=== PATIENT | female | born 1940 | race Caucasian/White ===

== ENCOUNTER → 2021-01-25 08:22 | Outpatient (CLI) | payer MEDICARE, BC, SELFPAY ==
[2021-01-25 10:30] LABS: Chloride 106 mmol/L (98-107)
[2021-01-25 10:31] LABS: Potassium 3.4 mmoL/L (3.5-5.1); Sodium 143 mmol/L (136-145)
[2021-01-25 10:33] LABS: Alanine Aminotransferase 8 U/L (12-78); Albumin Level 4.1 g/dl (3.5-5.0); Albumin/Globulin Ratio 1.1 (1.1-1.8); Alkaline Phosphatase 117 U/L (38-126); Anion Gap 16.4 mEq/L (5-15); Aspartate Amino Transferase 25 U/L (14-36); Bilirubin,Total 0.6 mg/dl (0.2-1.3); Calcium 9.5 mg/dl (8.4-10.2); Carbon Dioxide 24 mmol/L (22.0-30.0); Cholesterol 134 mg/dl (140-200); Globulin 3.7 g/dL (1.3-3.2); Glucose 102 mg/dl (74-100); Total Protein,Serum 7.8 g/dl (6.3-8.2); Triglycerides 87 mg/dl (30-150); VLDL Cholesterol 17 mg/dL (0-40)
[2021-01-25 10:34] LABS: Chol/HDL Ratio 2.7 (1-3.5); HDL Cholesterol 50 mg/dl (40-60)
[2021-01-25 18:21] LABS: Blood Urea Nitrogen 15 mg/dl (7-17); Estimated Glomerular Filt Rate 60 ml/min (>60); GFR (African American) 73 ML/MIN (>60)
[2021-01-25 18:30] LABS: Direct LDL Cholesterol 69.16 mg/dL (100-129)
== END ==
PROVIDERS: Visit Provider Family Medicine
DX: I10 Essential (primary) hypertension (principal); E78.5 Hyperlipidemia, unspecified
CPT/HCPCS: 36415; 80053; 80061

== ENCOUNTER 2023-02-02 08:22 | Inpatient (IN) | payer MEDICARE, BC, SELFPAY ==
[2023-02-02] VITALS (33 sets, daily range): BP systolic 102–176; BP diastolic 50–93; PULSE 79–126; RESP 17–31; TEMP 36.8; O2SAT 91–100; BMI 30.7; BMI 24.2
--- NOTE | 2023-02-02 08:29 | ECG_ITS ---
APPROVED REPORT Exam: Resting ECG HR:126 bpm ECG Measurements Heart Rate 126 AXES OR 119 P 73 QRSd 157 QRS 60 QT 325 T -81 QTc 400 Conclusion SINUS TACHYCARDIA WITH SHORT OR INTERVAL LEFT BUNDLE BRANCH BLOCK [120+ ms QRS DURATION, 80+ ms Q/S IN V1/V2, 85+ ms R IN I/aVL/V5/V6] ABNORMAL ECG UNCONFIRMED REPORT Electronically signed by : Dayo Gay MD 02/02/2023 19:17:51
--- NOTE | 2023-02-02 08:30 | XR_ITS ---
FINAL REPORT CLINICAL HISTORY: Shortness of breath COMPARISON: None FINDINGS: The heart size is mildly enlarged. The mediastinum is normal. Mildly increased interstitial opacities. Trace pleural effusions. Changes of emphysema. There is no pneumothorax. There is no osseous abnormality. IMPRESSION: Findings concerning for CHF. Reviewed, Interpreted and Dictated by Yovanny Lopez MD Transcribed by Sharon Pope Authenticated and [facility]
[2023-02-02 08:35] LABS: VBG Base Excess -5.3 mmol/L (-2.4-2.3); VBG HCO3 21.8 mmol/L (23-30); VBG Oxygen Saturation 89.5 % (50-70); VBG PCO2 49.5 mmol/L (35-51); VBG PH 7.26 mmol/L (7.31-7.41); VBG PO2 65.7 mmol/L (28-40); VBG Total CO2 23.3 mmol/L (23-27)
--- NOTE | 2023-02-02 08:37 | PC.NURSE ---
XR AT BEDSIDE
--- NOTE | 2023-02-02 08:45 | PC.NURSE ---
paged Dr Hemphill
--- NOTE | 2023-02-02 08:46 | PC.NURSE ---
DR HARPER SPEAKING WITH DR SANTOYO
[2023-02-02 08:47] LABS: Basophils # 0.1 K/mm3 (0-0.2); Basophils % 0.6 % (0.1-2.0); Eosinophils # 0.3 K/mm3 (0.0-0.4); Eosinophils % 1.6 % (0.1-12.0); Hematocrit 37.2 % (37.0-47.0); Hemoglobin 12.2 g/dL (12.2-16.2); Lymphocytes # 3.9 K/mm3 (0.7-4.5); Lymphocytes % 23.3 % (10-50); Mean Corpuscular HGB Conc 32.9 g/dL (31.8-35.4); Mean Corpuscular Hemoglobin 28.9 pg (27.0-31.2); Mean Corpuscular Volume 88.1 fl (81-99); Mean Platelet Volume 7.8 fl (7.4-10.4); Monocytes # 1.2 K/mm3 (0.1-1.0); Monocytes % 7.1 % (1.7-9.3); Neutrophils # 11.1 K/mm3 (1.8-7.8); Neutrophils % 67.3 % (37.0-80.0); Platelet Count 410 K/mm3 (142-424); Red Blood Count 4.23 M/mm3 (4.20-5.40); Red Cell Distribution Width 13.7 % (11.5-17.5); White Blood Count 16.5 K/mm3 (4.8-10.8)
--- NOTE | 2023-02-02 08:48 | CA_ITS ---
APPROVED REPORT EXAM: Comprehensive 2D, Doppler, and color-flow Echocardiogram Onion Tier: Massiel Horan RDCS Ht: 5 ft 6 in Wt: 150lbs BSA: 1.77 BP: 160/86 mmHg Indications: SOA,CHF,HTN,HLP RESP DISTRESS M-Mode Dimensions RVDd 0.75 cm (0.9-2.6) LA Diam 3.30 cm (1.9-4.0) LVDd 5.96 cm (3.5-5.7) LVDs 5.02 cm (3.5-5.7) IVSd 1.36 cm (0.6-1.1) PWd 1.15 cm (0.6-1.1) EF (Teich) 32.70% FS 15.80% EDV (Teich) 177.30 mL ESV (Teich) 119.30 mL LV Diastology E Decel Time 153 (160-240 msec) E/A Ratio 5.0 Aortic Valve LILLI Index 1.02 cm2/m2 AoV Peak Flaco. 187.0 (50-130 cm/s) AO Peak GR. 14.00 mmHg AO Mean GR. 6.80 (<5 mmHg) AO VTI 29.2 (18-25 cm) LILLI (VTI) 1.84 (2.5-4.5 cm2) Mitral Valve MV E Max Flaco. 129.0 (40-130 cm/s) MV A Velocity 26.0 (40-130 cm/s) E/A Ratio 4.90 MV PHT 45.0 ms Left Ventricle The left ventricle is normal size. Left ventricular systolic function is severely reduced. There is normal left ventricular wall thickness. There is severe global hypokinesis present. The anterior and anteroseptal LV pandya appear akinetic. The septum appears asynchronous. Diastolic function is indeterminate. LVEF is 25%. Right Ventricle The right ventricle is normal size. The right ventricular systolic function is normal. Atria The left atrium size is normal. There is no Doppler evidence of interatrial shunt. Aortic Valve The aortic valve is mildly thickened. There is no aortic valvular stenosis. Trace aortic regurgitation. Mitral Valve Mild mitral annular calcification. The mitral valve leaflets are mildly thickened. No evidence of mitral valve stenosis. Trace mitral regurgitation. Tricuspid Valve The tricuspid valve leaflets are thin and pliable. Trace tricuspid regurgitation. There is insufficient TR jet to estimate RVSP. Pulmonic Valve The pulmonary valve is normal in structure. Trace pulmonic regurgitation. Great Vessels The aortic root is normal in size. The ascending aorta is normal in size. IVC is normal in size and collapses >50% with inspiration. Pericardium Trivial pericardial effusion. There are no acute indications of tamponade. Other Information Study Quality: Fair Conclusion Severely reduced LV systolic function (LVEF 25%). Anterior and anteroseptal LV pandya appear akinetic. The septum appears asynchronous. Trivial pericardial effusion. Electronically signed by : Nurys Gtz MD 02/02/2023 10:02:47
[2023-02-02 08:54] LABS: MANUAL DIFFERENTIAL MANUAL DIFFERENTIAL (MANUAL DIFF)
[2023-02-02 08:56] LABS: Chloride 105 mmol/L (98-107); Potassium 3.3 mmoL/L (3.5-5.1); Sodium 138 mmol/L (136-145)
[2023-02-02 08:59] LABS: Alanine Aminotransferase 26 U/L (12-78); Alkaline Phosphatase 113 U/L (38-126); Anion Gap 10.3 mEq/L (5-15); Aspartate Amino Transferase 34 U/L (14-36); Bilirubin,Total 0.9 mg/dl (0.2-1.3); Blood Urea Nitrogen 14 mg/dl (7-17); Carbon Dioxide 26 mmol/L (22.0-30.0); Creatinine Clearance Estimated 47 mL/min (50-200); Estimated Glomerular Filt Rate 69 ml/min (>60); GFR (African American) 83 ML/MIN (>60); Globulin 4.2 g/dL (1.3-3.2); Total Protein,Serum 8.2 g/dl (6.3-8.2)
[2023-02-02 09:00] LABS: Calcium 8.3 mg/dl (8.4-10.2); Glucose 269 mg/dl (74-100)
--- NOTE | 2023-02-02 09:02 | PC.NURSE ---
cardiology and vascular at bedside for echo
--- NOTE | 2023-02-02 09:04 | PC.NURSE ---
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
[2023-02-02 09:08] LABS: NT Pro Brain Natriuretic Pep. 5620 pg/mL (0-450)
[2023-02-02 09:09] LABS: Lymphocytes % 30 % (10-50); Monocytes % 8 % (2-9); Neutrophils % 62 % (42-76); Platelet Estimate Slight Increase; RBC Morphology Normal; Total Cells Counted 100
[2023-02-02 09:10] LABS: Lactic Acid 2.1 mmol/L (0.7-2.1)
[2023-02-02 09:11] LABS: Troponin I 0.06 ng/ml (0.00-0.034)
--- NOTE | 2023-02-02 09:11 | HMH.EDGENADL ---
Discharge Plan Disposition Patient Disposition: Admitted Condition: Critical Clinical Impressions Clinical Impression: Acute hypoxemic respiratory failure Acute exacerbation of CHF (congestive heart failure) Qualifiers: Heart failure type: unspecified Qualified Code(s): I50.9 - Heart failure, unspecified Pulmonary edema Qualifiers: Chronicity: acute Qualified Code(s): J81.0 - Acute pulmonary edema Fluid overload Qualifiers: Hypervolemia type: other Qualified Code(s): E87.79 - Other fluid overload Discharge ED Provider: Kwame Mahan I General Adult HPI General Chief complaint: Shortness of Breath/Dyspnea Stated complaint: respiratory distress Time Seen by Provider: 02/02/23 08:44 Mode of Arrival: EMS Source of Information: Patient and EMS Limitations: No Limitations Description of Symptoms (Recalled from ER Triage Doc. by RN): c/o soa, woke up and noticed that she was having a hard time breathing, per ems oxygen was in the 70s upon arrival. arrived by ems with cpap present with oxygen at 96. Pt is alert and oriented at this time. History of Present Illness HPI narrative: Patient is an 82-year-old female, only known previous history of hypertension who is presenting to the emergency department with acute onset shortness of breath, difficulty breathing this morning. Patient was brought in by EMS on BiPAP. History was obtained from EMS as well as patient, later her . is concerned that she has actually been dealing with worsening shortness of breath with exertion over the past week although patient states that she only had difficulty breathing this morning. They ultimately called EMS. When EMS arrived on scene, patient had saturations in the 70s and was placed on BiPAP with a DuoNeb treatment. Patient states that she has had some slight improvement in her symptoms. She denies any current chest pain, lightheadedness, dizziness, abdominal pain, nausea, vomiting, syncope. Also denies abdominal pain, cough, congestion, runny nose, fever. Per her , patient has not recently been following up with her primary care provider. She does have swelling of the bilateral lower extremities. Denies prior smoking history, history of COPD. Related Data Home Medications Medication Instructions Recorded Confirmed amlodipine 5 mg tablet 5 mg PO DAILY High Blood Pressure 02/02/23 02/02/23 simvastatin 5 mg tablet 5 mg PO HS Cholesterol 02/02/23 02/02/23 Allergies Allergy/AdvReac Type Severity Reaction Status Date / Time Penicillins Allergy Verified 02/02/23 08:36 triprolidine Allergy Verified 02/02/23 08:36 [facility] Disclaimer: The information contained in this section may have been updated after the patient was seen, as this information can be updated by other users. Social History (Updated 02/02/23 @ 10:04 by GRACIE Carranza) Smoking Status: Unknown if ever smoked alcohol intake: never current occupational status: retired Travel in the last 8 weeks: Inside the [place] ROS Obtained: Yes All systems reviewed & no additional complaints except as documented Physical Exam General General appearance: alert (Patient is interactive, follows all commands but is ill-appearing) and in distress Head Head exam: atraumatic and normocephalic Eye Eye exam: Present normal appearance, PERRL and EOMI; Absent scleral icterus ENT ENT exam: Present normal exam and normal oropharynx Neck Neck exam: Present normal inspection, full ROM and trachea midline Chest Chest inspection: Present normal inspection and symmetric chest wall rise Respiratory Respiratory exam: Present respiratory distress, wheezes (Scattered wheezes bilaterally) and accessory muscle use Cardiovascular Cardiovascular exam: Present tachycardia Abdominal Exam Abdominal exam: Present soft and normal bowel sounds; Absent distention, tenderness, guarding, rebound or rigidity Extremities Exam Extremities exam: Present normal
--- NOTE | 2023-02-02 09:26 | EXP.CARD.CON ---
History of Present Illness History of Present Illness Consult date: 02/02/23 Consult reason: chest pain and congestive heart failure Chief complaint: SOA, AR Additional Medical History:: 1. Hypertension 2. Hyperlipidemia A. Chronic statin therapy 3. Abnormal EKG with left bundle branch block, 02/02/2023 possibly new. A. Possible a. flutter with 2:1 conduction 4. Heart failure with reduced ejection fraction, new on 02/02/2023 A. BNP 5620 B. Preliminary echo EF 25% History of present illness: Patient is an 82-year-old female, only known previous history of hypertension who is presenting to the emergency department with acute onset shortness of breath, difficulty breathing this morning. Patient was brought in by EMS on BiPAP. History was obtained from EMS as well as patient, later her . is concerned that she has actually been dealing with worsening shortness of breath with exertion over the past week although patient states that she only had difficulty breathing this morning. They ultimately called EMS. When EMS arrived on scene, patient had saturations in the 70s and was placed on BiPAP with a DuoNeb treatment. Patient states that she has had some slight improvement in her symptoms. She denies any current chest pain, lightheadedness, dizziness, abdominal pain, nausea, vomiting, syncope. Also denies abdominal pain, cough, congestion, runny nose, fever. Per her , patient has not recently been following up with her primary care provider. She does have swelling of the bilateral lower extremities. Denies prior smoking history, history of COPD. Patient is an 82-year-old female, only known previous history of hypertension who is presenting to the emergency department with acute onset shortness of breath, difficulty breathing this morning. She was hypertensive with systolics in the 140s to 150s, saturating in the mid 90s on BiPAP, tachycardic with a heart rate in the 120s but ill-appearing, in respiratory distress on arrival to the emergency department. Physical exam is notable for bilateral wheezes on exam, patient is tachypneic with increased work of breathing, intercostal retractions. 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 Patient does have 2-3+ pitting edema of the bilateral lower extremities with findings concerning for venous stasis, with this being concerning for acute on chronic exacerbation possible underlying heart failure. Patient denies any recent fevers that would be concerning for acute infectious process. Following cihuj-vc-hahb lung ultrasound, cardiac ultrasound at bedside, patient has diffuse B-lines that would be concerning for fluid overload. On a iofey-sw-boym cardiac ultrasound, patient has significantly diminished ejection fraction, does not have any RV dilation that would be concerning for acute PE. However, given her physical exam findings of pitting edema, diffuse B-lines, fluffy infiltrates, findings of pulmonary edema and bilateral pleural effusions on chest x-ray, decreased EF on ultrasound, this is all concerning for new onset heart failure, possible recent versus remote ischemic insult. EKG demonstrated left bundle pathology, although patient does not currently meet STEMI criteria based on Sgarbossa criteria. However, she does have some inferior lead depressions, could be secondary to demand ischemia in the setting of this current exacerbation. Patient was given additional 2 DuoNeb treatments on a BiPAP, placed on 11/30 with FiO2 75%. Qobzu-ju-bkks VBG was obtained that was notable for a mildly elevated CO2 of 49, lactate of 2.04 and mild acidosis that is likely secondary to both lactic acidosis and hypercarbia. Following interactive discussion and consultation with cardiology, given vnigs-sy-mxkv ultrasound findings as well as EKG, patient was given 80 mg IV Lasix and stat echo was ordered. Fo
--- NOTE | 2023-02-02 09:34 | IR_ITS ---
APPROVED REPORT Patient Location: Outpatient Stoker Installer: PAPITO Youngblood RT (R) PROCEDURES Selective coronary angiogram Drug-eluting stent deployment to the proximal LAD INDICATION Coronary artery disease, Non-ST elevation myocardial infarction, Abnormal echocardiogram with systolic congestive heart failure and anterior regional wall motion abnormality Informed consent was obtained prior to the procedure. COMPLICATIONS None Estimated Blood Loss: Less than 10 mls TECHNIQUE One percent lidocaine used to anesthetize the right anterior aspect of the wrist. The right radial artery was accessed via the Seldinger technique. A 6 Bolivian sheath was placed in the right radial artery. 2.5 mg of Verapamil, 800 mcg of nitroglycerin, 1mg Lidocaine and 5000 U Heparin were given through the arterial sheath. The papa catheter was also used to perform selective coronary angiogram. At the end of the procedure therapeutic heparin was administered giving a therapeutic ACT and the guide catheter was placed in left main artery followed by Choice PT extra-support wire being placed down the LAD. A 4 mm x 30 mm Trevor frontier stent was placed in the proximal LAD and deployed at 14 papito reducing the hemodynamically severe stenosis to 0%. KALLI-3 flow was present before and after the procedure. At the end of procedure the apparatus was removed the sheath was removed and hemostasis was achieved using TR banding patient was transferred to the postop holding in stable condition ANGIOGRAPHIC RESULTS The left main artery Normal The left anterior descending artery Has a proximal concentric 60 to 70% stenosis The circumflex artery Large codominant normal The right coronary artery Large codominant normal The DIAZ ventriculogram reveals Not performed The left ventricular end-diastolic pressure Not measured IMPRESSION Severe proximal LAD disease as described above Successful stent to the proximal LAD severe disease reduced to 0% with 1 drug-eluting stent PLAN 1. Plavix 600 mg bolus followed by 75 mg daily plus aspirin 81 mg daily 2. Standard therapy for systolic congestive heart failure 3. Standard therapy for ischemic heart disease 4. Consider LifeVest prior to discharge 5. Better rate control tachycardia using beta-blockers Electronically signed by : Buzz Hemphill MD 02/02/2023 13:19:46
--- NOTE | 2023-02-02 09:45 | PC.NURSE ---
SPOKE WITH DR JENNINGS, PT TO BE ADMITTED TO HOSPITALIST
--- NOTE | 2023-02-02 09:52 | HMH.PHAINT1 ---
Pharmacy Intervention Comments: MEDICATION RECONCILIATION COMPLETED ON PATIENT USING EXTERNAL FILL HISTORY FROM PHARMACY. -KRISTEN HORNE, BENNYD
--- NOTE | 2023-02-02 09:53 | PC.NURSE ---
ATTEMPTED TO REACH HOSPITALIST, NO ANSWER. PRO SHOP ATTENDANT NOTIFIED
--- NOTE | 2023-02-02 09:58 | PC.NURSE ---
VERBAL ORDERS FROM LINNEA HUSSEIN TO GIVEN PT 324 OF CHEWABLE ASA
[2023-02-02 10:16] LABS: Magnesium 1.9 mg/dl (1.6-2.3)
--- NOTE | 2023-02-02 11:32 | PC.NURSE ---
DR HARPER SPEAKING WITH HOSPITALIST
--- NOTE | 2023-02-02 11:42 | PC.NURSE ---
Notified CM of pt admission to hospitalist
[2023-02-02 12:03] LABS: Troponin I 0.18 ng/ml (0.00-0.034)
--- NOTE | 2023-02-02 12:09 | PC.NURSE ---
CONTACTED CARE MANAGEMENT AGAIN FOR PT BED, ISABEL STATES SHE WILL CALL FOR A BED. INFORMED PT IS VERY UNCOMFORTABLE EVEN AFTER RN X 2 AT BEDSIDE TO REPOSITION PT
--- NOTE | 2023-02-02 12:14 | PC.NURSE ---
called for bed assignment Betty said she would get to it in just a minute
--- NOTE | 2023-02-02 12:30 | PC.NURSE ---
irrigation laborer here for pt.
[2023-02-02 12:35] LABS: Reflex Lactic Add Lactic Reflex
[2023-02-02 14:53] LABS: CATHL Activated Clotting Time 240 SEC (74-125)
--- NOTE | 2023-02-02 15:09 | PC.NURSE ---
arrived to floor by stretcher from medical laboratory technical officer
[2023-02-02 16:24] LABS: Lactic Acid Follow Up (RFLX 1) 1.5 mmol/L (0.7-2.1)
--- NOTE | 2023-02-02 17:33 | PC.NURSE ---
pt new admit this shift at 1509 from computer lab assistant s/p 1 stent to LAD. pt ls cta. pt initially on 15L nonrebreather at admission, pt weaned to 4LNC with current O2 sat of 94%. pt denies SOA at this time and states she is feeling like she can breathe better. pt BBB on quality assurance inspector. abdomen soft, nontender t/o. f/c in place for accurate I&O after diuresis. pt has BLE edema. pt has dressing to right wrist where radial band was. Call light w/i reach and bed alarm in place.
--- NOTE | 2023-02-02 17:58 | PC.NURSE ---
Called and spoke with Dr. Sweet regarding pt having troponin lab work ordered and Heparin due at 1800. verbal order given to discontinue the troponin lab order and to reschedule the Heparin SQ d/t pt receiving Heparin in the Can Intake Worker. orders R&V.
--- NOTE | 2023-02-02 18:47 | PC.NURSE ---
pt titrated to 3LNC at this time. sats 96%.
--- NOTE | 2023-02-02 19:15 | EXP.HP ---
History of Present Illness *Admission Date: 02/02/23 *Reason for visit:: SOB *History of present illness: Is a 82-year-old female with past medical history of hypertension hyperlipidemia who presents to the hospital for shortness of breath, bilateral lower extremity swelling. According to the patient she has been feeling short of breath for the past 1 week, her shortness of breath gets worse. Patient, she denies acute chest pain nausea vomiting diarrhea constipation dysuria fever chills. Patient had emergent echocardiogram in the ED which did show EF 25%. Patient was taken to Assistant Passenger Locomotive Engineer. [facility] Disclaimer: The information contained in this section may have been updated after the patient was seen, as this information can be updated by other users. Medical History (Updated 02/02/23 @ 15:28 by Joanne Nicholas RN) CHF (congestive heart failure) History of left heart catheterization HLD (hyperlipidemia) Hypertension Surgical History (Updated 02/02/23 @ 15:28 by Joanne Nicholas RN) S/P partial hysterectomy Social History (Updated 02/02/23 @ 15:28 by Joanne Nicholas RN) Smoking Status: Unknown if ever smoked alcohol intake: never current occupational status: retired Travel in the last 8 weeks: Inside the [place] Review of Systems Review of Systems Review of systems (narrative): as per HPI Meds Home Medications and Allergies Home Medications Medication Instructions Recorded Confirmed Type amlodipine 5 mg tablet 5 mg PO DAILY High Blood Pressure 02/02/23 02/02/23 History simvastatin 5 mg tablet 5 mg PO HS Cholesterol 02/02/23 02/02/23 History New Prescriptions to Start Prescriptions: Allergies Allergy/AdvReac Type Severity Reaction Status Date / Time Penicillins Allergy Verified 02/02/23 08:36 triprolidine Allergy Verified 02/02/23 08:36 Exam Data for Last 24 hours Vital signs and Labs for Last 24 Hours: Temp Pulse Resp BP Pulse Ox O2 Del Method O2 Flow Rate 98.2 F 100 H 18 145/76 H 96 Nasal Cannula 4 02/02/23 12:31 02/02/23 18:45 02/02/23 18:45 02/02/23 18:45 02/02/23 18:45 02/02/23 18:45 02/02/23 18:45 FiO2 100 02/02/23 14:00 Laboratory Results - last 24 hr 02/02/23 08:28: WBC 16.5 H, RBC 4.23, Hgb 12.2, Hct 37.2, MCV 88.1, MCH 28.9, MCHC 32.9, RDW 13.7, Plt Count 410, MPV 7.8, Neut % (Auto) 67.3, Lymph % (Auto) 23.3, Mellette % (Auto) 7.1, Eos % (Auto) 1.6, Baso % (Auto) 0.6, Neut # (Auto) 11.1 H, Lymph # (Auto) 3.9, Mellette # (Auto) 1.2 H, Eos # (Auto) 0.3, Baso # (Auto) 0.1, Total Counted 100, Neutrophils % (Manual) 62, Lymphocytes % (Manual) 30, Monocytes % (Manual) 8, Platelet Estimate Slight increase, RBC Morphology Normal, Sodium 138, Potassium 3.3 L, Chloride 105, Carbon Dioxide 26, Anion Gap 10.3, BUN 14, Creatinine 0.80, Estimated Creat Clear 47, Estimated GFR 69, Est GFR ( Amer) 83, Glucose 269 H, Lactate 2.1, Calcium 8.3 L, Magnesium 1.9, Total Bilirubin 0.9, AST 34, ALT 26, Alkaline Phosphatase 113, Troponin I 0.06 H, NT-Pro-B Natriuret Pep 5620 H, Total Protein 8.2, Albumin 4.0, Globulin 4.2 H, Albumin/Globulin Ratio 1.0 L 02/02/23 08:30: VBG pH 7.26 L, VBG pCO2 49.5, VBG pO2 65.7 H, VBG HCO3 21.8 L, VBG Total CO2 23.3, VBG O2 Saturation 89.5 H, VBG Base Excess -5.3 L 02/02/23 11:27: Troponin I 0.18 H 02/02/23 14:03: Activated Clotting Time 240 H* 02/02/23 15:00: Lactate 1.5 I & O for Last 24 hours: Intake & Output 01/30/23 01/31/23 02/01/23 02/02/23 23:59 23:59 23:59 23:59 Intake Total 0 / 0 Output Total 2375 / 2375 Balance -2375 / -2375 Weight 68.039 kg Constitutional Constitutional: no acute distress *Routine HEENT Exam Head: Present normocephalic Eye: Present EOMI and PERRL ENT: Present mucous membranes moist *Routine Neck Exam Neck: Present supple; Absent lymphadenopathy *Routine Respiratory Exam Respiratory: Present CTA bilaterally *Routine Cardiovascular Exam Cardiovascular: Present RRR *Routine Abdominal Exam
[2023-02-03] VITALS (11 sets, daily range): BP systolic 111–142; BP diastolic 53–77; PULSE 70–111; RESP 18–31; TEMP 36.4–37; O2SAT 93–100; BMI 25.3
--- NOTE | 2023-02-03 00:30 | PC.WOUNDNOTE ---
Noticed on pt rounding pt had small amount of blood on bedsheet. RLE venous stasis had open spot. Rinsed with NS flush, washed with soap and water, patted dry, and placed Mepilex dressing. Pt states she has had this for a while but that it has healed before. Pt states she has placed neosporin on it without relief and area is exacerbated with tape and gauze. Educated purpose of wound cleansing and monitoring, pt verbalized.
--- NOTE | 2023-02-03 02:45 | PC.WOUNDNOTE ---
Pt called for RN and stated she picked a scab on her forehead. Bleeding present. Pt cleaned, abrasion cleaned and covered with bandaid. Educated pt to not pick at area.
--- NOTE | 2023-02-03 04:52 | PC.NURSE ---
Shift Summary: Pt AOx4, VSS on 3-5 L NC. Attempted to titrate to 3 L NC, however, pt desatted to 89% when asleep. R radial site remains clean and dry, no pain reported by pt. Reeducated pt multiple times to avoid pressure and to keep wrist straight as much as possible, pt requiring reinforcement and cues. 40 mg Lasix and 40 mEq KCl given last night, educated pt on purpose. Pt c/o constipation, docusate ordered and administered. Gas present, no BM at this time. Pt bed bath given, pt tolerated well. Pt RLE venous stasis and head abrasion covered in mepilex and bandaid, respectively. No acute events or issues at this time. Call light within reach and fall precautions implemented.
[2023-02-03 07:04] LABS: Chloride 105 mmol/L (98-107)
[2023-02-03 07:05] LABS: Potassium 3.3 mmoL/L (3.5-5.1); Sodium 141 mmol/L (136-145)
[2023-02-03 07:07] LABS: Alanine Aminotransferase 19 U/L (12-78); Alkaline Phosphatase 77 U/L (38-126); Anion Gap 8.3 mEq/L (5-15); Aspartate Amino Transferase 30 U/L (14-36); Bilirubin,Total 0.5 mg/dl (0.2-1.3); Blood Urea Nitrogen 23 mg/dl (7-17); Carbon Dioxide 31 mmol/L (22.0-30.0); Creatinine Clearance Estimated 49 mL/min (50-200); Estimated Glomerular Filt Rate 60 ml/min (>60); GFR (African American) 73 ML/MIN (>60)
[2023-02-03 07:08] LABS: Albumin Level 3.5 g/dl (3.5-5.0); Calcium 8.3 mg/dl (8.4-10.2); Globulin 3.5 g/dL (1.3-3.2); Glucose 144 mg/dl (74-100); Magnesium 2.1 mg/dl (1.6-2.3)
[2023-02-03 07:43] LABS: Basophils % 0.1 % (0.1-2.0); Eosinophils % 0.1 % (0.1-12.0); Hematocrit 30.7 % (37.0-47.0); Lymphocytes # 1.1 K/mm3 (0.7-4.5); Lymphocytes % 9.3 % (10-50); Mean Corpuscular HGB Conc 33.2 g/dL (31.8-35.4); Mean Corpuscular Hemoglobin 28.2 pg (27.0-31.2); Mean Platelet Volume 7.6 fl (7.4-10.4); Monocytes # 0.6 K/mm3 (0.1-1.0); Monocytes % 5.3 % (1.7-9.3); Neutrophils # 9.7 K/mm3 (1.8-7.8); Neutrophils % 85.2 % (37.0-80.0); Platelet Count 325 K/mm3 (142-424); Red Blood Count 3.61 M/mm3 (4.20-5.40); Red Cell Distribution Width 13.6 % (11.5-17.5); White Blood Count 11.3 K/mm3 (4.8-10.8)
[2023-02-03 07:50] LABS: MANUAL DIFFERENTIAL MANUAL DIFFERENTIAL (MANUAL DIFF)
[2023-02-03 08:20] LABS: Lymphocytes % 9 % (10-50); Monocytes % 13 % (2-9); Neutrophils % 78 % (42-76); Platelet Estimate Normal; RBC Morphology Normal; Total Cells Counted 100
[2023-02-03 08:21] LABS: Hemoglobin 10.2 g/dL (12.2-16.2)
--- NOTE | 2023-02-03 08:23 | PC.NURSE ---
Courtesy Note: pt assisted to ambulate from bed to chair using x2 assistance. pt had no complaints throughout ambulation. no further requests at this time. call gustavo within reach. Sanju SRNA
--- NOTE | 2023-02-03 09:02 | PC.NURSE ---
notified dietary that patient is requesting oatmeal, banana and hot tea
--- NOTE | 2023-02-03 09:11 | EXP.CARD.PN ---
Subjective Subjective Date: 02/03/23 Time: 09:11 Principal diagnosis: NSTEMI, Cardiomyopathy Interval history: 82-year-old white female sitting in bedside chair in no acute distress. States she is breathing and feeling much better. Results of the cardiac cath reviewed with the patient and due to her cardiomyopathy recommendation for LifeVest was reviewed as well. Exam Data for Last 24 hours Vital signs and Labs for Last 24 Hours: Temp Pulse Resp BP Pulse Ox O2 Del Method O2 Flow Rate 97.6 F 70 18 127/54 L 98 Nasal Cannula 4 02/03/23 08:00 02/03/23 06:00 02/03/23 06:00 02/03/23 06:00 02/03/23 06:00 02/03/23 06:30 02/03/23 06:30 FiO2 4 02/03/23 06:00 Laboratory Results - last 24 hr 02/02/23 08:28: Sodium 138, Potassium 3.3 L, Chloride 105, Carbon Dioxide 26, Anion Gap 10.3, BUN 14, Creatinine 0.80, Estimated Creat Clear 47, Estimated GFR 69, Est GFR ( Amer) 83, Glucose 269 H, Calcium 8.3 L, Magnesium 1.9, Total Bilirubin 0.9, AST 34, ALT 26, Alkaline Phosphatase 113, Troponin I 0.06 H, Total Protein 8.2, Albumin 4.0, Globulin 4.2 H, Albumin/Globulin Ratio 1.0 L 02/02/23 11:27: Troponin I 0.18 H 02/02/23 14:03: Activated Clotting Time 240 H* 02/02/23 15:00: Lactate 1.5 02/03/23 06:25: WBC 11.3 H D, RBC 3.61 L, Hgb 10.2 L D, Hct 30.7 L, MCV 85.0, MCH 28.2, MCHC 33.2, RDW 13.6, Plt Count 325, MPV 7.6, Neut % (Auto) 85.2 H, Lymph % (Auto) 9.3 L, [place] % (Auto) 5.3, Eos % (Auto) 0.1, Baso % (Auto) 0.1, Neut # (Auto) 9.7 H, Lymph # (Auto) 1.1, [place] # (Auto) 0.6, Eos # (Auto) 0.0, Baso # (Auto) 0.0, Total Counted 100, Neutrophils % (Manual) 78 H, Lymphocytes % (Manual) 9 L, Monocytes % (Manual) 13 H, Platelet Estimate Normal, RBC Morphology Normal, Sodium 141, Potassium 3.3 L, Chloride 105, Carbon Dioxide 31 H, Anion Gap 8.3, BUN 23 H D, Creatinine 0.90, Estimated Creat Clear 49, Estimated GFR 60, Est GFR ( Amer) 73, Glucose 144 H D, Calcium 8.3 L, Magnesium 2.1 D, Total Bilirubin 0.5, AST 30, ALT 19 D, Alkaline Phosphatase 77, Total Protein 7.0, Albumin 3.5 D, Globulin 3.5 H, Albumin/Globulin Ratio 1.0 L I & O for Last 24 hours: Intake & Output 01/31/23 02/01/23 02/02/23 02/03/23 11:59 11:59 11:59 11:59 Intake Total 360 / 360 Output Total 3775 / 3775 Balance -3415 / -3415 Weight 150 lb 157 lb 10.088 oz Constitutional Constitutional: no acute distress *Routine Respiratory Exam Respiratory: Present CTA bilaterally *Routine Cardiovascular Exam Cardiovascular: Present RRR *Routine Extremities Exam Extremities: Present edema *Routine Neurological Exam Neurological: Present alert, oriented X3 and CN II-XII intact Progress Note: A&P Assessment and plan (1) Acute exacerbation of CHF (congestive heart failure): Status: Acute (2) Acute hypoxemic respiratory failure: Status: Acute (3) Pulmonary edema: Status: Acute (4) Fluid overload: Status: Acute (5) NSTEMI (non-ST elevated myocardial infarction): Status: Acute (6) Left bundle branch block (LBBB) determined by electrocardiography: Status: Acute (7) HTN (hypertension): Status: Acute (8) Hyperlipidemia: Status: Acute (9) Cardiomyopathy: Status: Acute Assessment and Plan Assessment and Plan for All Diagnoses:: 1. NSTEMI A. JERRELL to prox LAD, 02/02/2023 B. ASA and plavix 2. HFrEF, new A. Echo EF 25% B. Start GDMT with entresto, jardiance, coreg and diuretics C. LifeVest prior to discharge 3. HTN A. Start Entresto and carvedilol 4. HLD A. Continue statin B. LDL 69 5. Acute respiratory failure secondary to CHF A. On nasal cannula oxygen B. Continue lasix 6. Tachycardia secondary to NSTEMI/CHF A. Start beta-kat 7. Hypokalemia A. Continue replacement Monitor overnight on new meds. Life Vest prior to discharge. Anticipate home tomorrow.
--- NOTE | 2023-02-03 11:13 | HMH.PTWOUND ---
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 PMH of hypertension hyperlipidemia who presents to the hospital for shortness of breath, bilateral lower extremity swelling. She presents with R anterior garza wound present for several mos overall exacerbating and remitting with fluctuating edema. Wound Right Anterior Garza Wound Type Stasis Ulcer Is This a Chronic Wound Yes Wound Length (cm) 8.0 Wound Width (cm) 6.0 Wound Depth (cm) 0.1 Wound Bed Appearance Yellow,Eschar Wound Margins Description Indistinct Surrounding Tissue Appearance [place],Bright Red Edema Type Pitting Edema Degree 2+ Query Text:1+ Trace, Barely Detectable, Rebound 15-30 seconds 2+ Moderate, Slight Indentation, Rebound 10-20 seconds 3+ Deep, Deeper Indentation, Rebound > 30 seconds 4+ Very Deep, Rebound > 60 seconds Wound Drainage Description Serosanguineous Drainage Amount Small Drainage Odor No Odor Wound Topical Solution/Irrigant Saline Irrigant Primary Dressing Unna Boot Wound Secondary Dressing Type Gauze Roll/Wrap,Adhering Gauze Roll Wound Debridement Method Gauze,Mechanical Wound Debridement Amount of Tissue Minimal Removed Dressing Change Patient Tolerance Tolerated Well Plan/Recommendation Comment Continue unna boot dressing changes once every 3-4 days as needed. Eval Complexity Eval Charge Codes 99454 - High Complexity PHYSICIAN CERTIFICATION: I certify the specified therapy services for Barbara Najera are required, authorized, and reviewed every 30 days.
--- NOTE | 2023-02-03 11:46 | PC.NURSE ---
removed collier catheter
--- NOTE | 2023-02-03 12:06 | PC.NURSE ---
COURTESY NOTE: afternoon round completed on pt. pt denies needing assistance at this time. call gustavo within reach. Vale SRNA
--- NOTE | 2023-02-03 19:39 | EXP.ACUTE.PN ---
Subjective *Date: 02/03/23 *Time: 22:24 Interval history: Still feels little short of breath today. Stable on 4 L oxygen however. Denies any chest pain, nausea, vomiting. Was complaining of some lower back pain and concern for kidney stone . States she passed a stone few days before coming to the hospital. Denies any fever or chills. Still has Mag[place] in place on morning exam. Medical Exam Vital signs and Labs for Last 24 Hours: Vital Signs Temp Pulse Pulse Pulse Resp BP Pulse Ox 02/03/23 18:23 02/03/23 16:00 78 31 H 118/69 96 02/03/23 17:00 02/03/23 15:00 02/03/23 16:00 76 02/03/23 16:00 98.2 F 02/03/23 08:02 110 H 02/03/23 11:47 86 02/03/23 12:00 88 24 134/68 97 02/03/23 13:00 02/03/23 12:00 98.0 F 02/03/23 08:00 96 02/03/23 11:00 02/03/23 09:00 02/03/23 10:00 96 H 25 H 111/66 100 02/03/23 08:00 111 H 22 137/68 94 L 02/03/23 08:00 97.6 F 02/03/23 06:30 02/03/23 06:00 70 18 127/54 L 98 02/03/23 04:00 79 02/03/23 04:54 02/03/23 04:00 98.6 F 80 22 117/57 L 93 L 02/03/23 03:00 02/03/23 02:00 92 H 24 142/77 H 96 02/03/23 01:00 02/03/23 00:00 97.6 F 94 H 20 111/56 L 94 L 02/03/23 00:00 95 H 02/02/23 23:00 02/02/23 22:00 90 20 135/50 L 93 L 02/02/23 20:45 92 H 24 119/57 L 91 L 02/02/23 19:45 100 H 22 134/64 93 L 02/02/23 21:00 02/02/23 20:00 98.2 F 100 H 24 145/60 H 99 02/02/23 20:00 100 H 24 99 02/02/23 20:00 98 H O2 Del Method O2 Flow Rate FiO2 02/03/23 18:23 Nasal Cannula 4 02/03/23 16:00 Nasal Cannula 4 02/03/23 17:00 Nasal Cannula 4 02/03/23 15:00 Nasal Cannula 4 02/03/23 16:00 02/03/23 16:00 02/03/23 08:02 02/03/23 11:47 02/03/23 12:00 Nasal Cannula 4 02/03/23 13:00 Nasal Cannula 4 02/03/23 12:00 02/03/23 08:00 Nasal Cannula 4 02/03/23 11:00 Nasal Cannula 4 02/03/23 09:00 Nasal Cannula 4 02/03/23 10:00 Nasal Cannula 4 02/03/23 08:00 Nasal Cannula 4 02/03/23 08:00 02/03/23 06:30 Nasal Cannula 4 02/03/23 06:00 Nasal Cannula 4 02/03/23 04:00 02/03/23 04:54 Nasal Cannula 5 02/03/23 04:00 Nasal Cannula 5 02/03/23 03:00 Nasal Cannula 4 02/03/23 02:00 Nasal Cannula 5 02/03/23 01:00 Nasal Cannula 5 02/03/23 00:00 Nasal Cannula 5 02/03/23 00:00 02/02/23 23:00 Nasal Cannula 5 02/02/23 22:00 Nasal Cannula 5 02/02/23 20:45 Nasal Cannula 3 02/02/23 19:45 Nasal Cannula 3 02/02/23 21:00 Nasal Cannula 5 02/02/23 20:00 Nasal Cannula 3 02/02/23 20:00 Nasal Cannula 3 02/02/23 20:00 Intake and Output 02/03/23 02/03/23 02/03/23 07:59 15:59 23:59 Intake Total 360 / 660 300 / 660 Output Total 150 / 150 0 / 150 0 / 150 Balance -150 / 510 360 / 510 300 / 510 Intake: Intake, Oral Amount 360 / 660 300 / 660 Output: Output, Urine Amount 150 / 150 0 / 150 0 / 150 Other: Number of Unmeasured Voids 0 1 1 Number of Bowel Movements 1 1 Weight 71.5 kg Patient Weight 12/12/23 23:59 Weight 71.5 kg Laboratory Results - last 24 hr 02/03/23 06:25: WBC 11.3 H D, RBC 3.61 L, Hgb 10.2 L D, Hct 30.7 L, MCV 85.0, MCH 28.2, MCHC 33.2, RDW 13.6, Plt Count 325, MPV 7.6, Neut % (Auto) 85.2 H, Lymph % (Auto) 9.3 L, [place] % (Auto) 5.3, Eos % (Auto) 0.1, Baso % (Auto) 0.1, Neut # (Auto) 9.7 H, Lymph # (Auto) 1.1, [place] # (Auto) 0.6, Eos # (Auto) 0.0, Baso # (Auto) 0.0, Total Counted 100, Neutrophils % (Manual) 78 H, Lymphocytes % (Manual) 9 L, Monocytes % (Manual) 13 H, Platelet Estimate Normal, RBC Morphology Normal, Sodium 141, Potassium 3.3 L, Chloride 105, Carbon Dioxide 31 H, Anion Gap 8.3, BUN 23 H D, Creatinine 0.90, Estimated Creat Clear 49, Estimated GFR 60, Est GFR ( Amer) 73, Glucose 144 H D, Calcium 8.3 L, [place]
[2023-02-04 03:17] VITALS: BMI 25.3
[2023-02-04 04:00] VITALS: BP 112/57; PULSE 77; RESP 20; TEMP 37.8; O2SAT 99; BMI 25.1
--- NOTE | 2023-02-04 06:26 | PC.NURSE ---
End of shift summary: Patient was restless for early part of shift. Medicated per MAR for insomnia and pain. Patient remains incontinent to urine and has been using purewick, but refused to wear brief. Patient VSS, NAD otherwise. Remains on 4L/NC.
[2023-02-04 06:58] LABS: Chloride 105 mmol/L (98-107); Sodium 142 mmol/L (136-145)
[2023-02-04 06:59] LABS: Potassium 3.2 mmoL/L (3.5-5.1)
[2023-02-04 07:01] LABS: Alanine Aminotransferase 30 U/L (12-78); Alkaline Phosphatase 96 U/L (38-126); Anion Gap 9.2 mEq/L (5-15); Aspartate Amino Transferase 49 U/L (14-36); Bilirubin,Total 0.6 mg/dl (0.2-1.3); Blood Urea Nitrogen 36 mg/dl (7-17); Calcium 8.7 mg/dl (8.4-10.2); Carbon Dioxide 31 mmol/L (22.0-30.0); Creatinine Clearance Estimated 49 mL/min (50-200); Estimated Glomerular Filt Rate 53 ml/min (>60); GFR (African American) 64 ML/MIN (>60); Glucose 135 mg/dl (74-100)
[2023-02-04 07:41] LABS: Basophils # 0.1 K/mm3 (0-0.2); Basophils % 0.4 % (0.1-2.0); Eosinophils # 0.1 K/mm3 (0.0-0.4); Eosinophils % 0.4 % (0.1-12.0); Hematocrit 38.5 % (37.0-47.0); Lymphocytes # 1.9 K/mm3 (0.7-4.5); Lymphocytes % 15.9 % (10-50); Mean Corpuscular Hemoglobin 28.4 pg (27.0-31.2); Mean Corpuscular Volume 86.2 fl (81-99); Mean Platelet Volume 7.1 fl (7.4-10.4); Monocytes # 0.6 K/mm3 (0.1-1.0); Monocytes % 5.4 % (1.7-9.3); Neutrophils # 9.2 K/mm3 (1.8-7.8); Neutrophils % 77.9 % (37.0-80.0); Platelet Count 339 K/mm3 (142-424); Red Blood Count 4.46 M/mm3 (4.20-5.40); Red Cell Distribution Width 13.5 % (11.5-17.5); White Blood Count 11.9 K/mm3 (4.8-10.8)
[2023-02-04 07:44] VITALS: BP 115/57; PULSE 76; RESP 17; TEMP 36.6; O2SAT 98
[2023-02-04 07:49] LABS: Magnesium 2.2 mg/dl (1.6-2.3)
[2023-02-04 08:20] LABS: Hemoglobin 13.2 g/dL (12.2-16.2)
--- NOTE | 2023-02-04 08:51 | EXP.CARD.PN ---
Subjective Subjective Date: 02/04/23 Time: 08:51 Principal diagnosis: NSTEMI, Cardiomyopathy Interval history: 82-year-old white female in bed in no acute distress. She relates lower back discomfort due to being in bed or in the chair. She did have a bowel movement yesterday and is feeling better. She denies any chest pain, pressure or tightness. She was fitted and instructed on her ZOLL LifeVest yesterday. She is anxious to go home. Exam Data for Last 24 hours Vital signs and Labs for Last 24 Hours: Temp Pulse Resp BP Pulse Ox O2 Del Method O2 Flow Rate 97.8 F 76 17 115/57 L 98 Nasal Cannula 4 02/04/23 07:44 02/04/23 07:44 02/04/23 07:44 02/04/23 07:44 02/04/23 07:44 02/04/23 07:44 02/04/23 07:44 FiO2 4 02/03/23 06:00 Laboratory Results - last 24 hr 02/04/23 06:21: WBC 11.9 H, RBC 4.46, Hgb 13.2 D, Hct 38.5, MCV 86.2, MCH 28.4, MCHC 33.0, RDW 13.5, Plt Count 339, MPV 7.1 L, Neut % (Auto) 77.9, Lymph % (Auto) 15.9, [place] % (Auto) 5.4, Eos % (Auto) 0.4, Baso % (Auto) 0.4, Neut # (Auto) 9.2 H, Lymph # (Auto) 1.9, [place] # (Auto) 0.6, Eos # (Auto) 0.1, Baso # (Auto) 0.1, Sodium 142, Potassium 3.2 L, Chloride 105, Carbon Dioxide 31 H, Anion Gap 9.2, BUN 36 H D, Creatinine 1.00, Estimated Creat Clear 49, Estimated GFR 53 L, Est GFR ( Amer) 64, Glucose 135 H, Calcium 8.7, Magnesium 2.2, Total Bilirubin 0.6, AST 49 H D, ALT 30 D, Alkaline Phosphatase 96, Total Protein 8.0, Albumin 4.0 D, Globulin 4.0 H, Albumin/Globulin Ratio 1.0 L I & O for Last 24 hours: Intake & Output 12/12/1502/02/23 02/03/23 02/04/23 11:59 11:59 11:59 11:59 Intake Total 360 / 360 960 / 960 Output Total 3775 / 3775 1300 / 1300 Balance -3415 / -3415 -340 / -340 Weight 150 lb 157 lb 10.088 oz 156 lb 9 oz Constitutional Constitutional: no acute distress *Routine Respiratory Exam Respiratory: Present CTA bilaterally *Routine Cardiovascular Exam Cardiovascular: Present RRR *Routine Extremities Exam Extremities: Present edema (Significant improvement in lower extremity edema) Progress Note: A&P Assessment and plan (1) Acute exacerbation of CHF (congestive heart failure): Status: Acute (2) Acute hypoxemic respiratory failure: Status: Acute (3) Pulmonary edema: Status: Acute (4) Fluid overload: Status: Acute (5) NSTEMI (non-ST elevated myocardial infarction): Status: Acute (6) Left bundle branch block (LBBB) determined by electrocardiography: Status: Acute (7) HTN (hypertension): Status: Acute (8) Hyperlipidemia: Status: Acute (9) Cardiomyopathy: Status: Acute Assessment and Plan Assessment and Plan for All Diagnoses:: 1. NSTEMI A. JERRELL to prox LAD, 02/02/2023 B. ASA and plavix 2. HFrEF, new A. Echo EF 25% B. Start GDMT with entresto, jardiance, coreg and diuretics C. LifeVest 3. HTN A. Started on Entresto and carvedilol 4. HLD A. Continue statin B. LDL 69 5. Acute respiratory failure secondary to CHF A. On nasal cannula oxygen B. Continue lasix 6. Tachycardia secondary to NSTEMI/CHF A. Improved on beta-kat 7. Hypokalemia A. Continue replacement Clinically stable from a cardiac standpoint for discharge home. Home medication recommendations: Entresto 24/26 mg twice daily Carvedilol 3.125 mg twice daily Lasix 40 mg daily Aldactone 25 mg daily Potassium 20 mEq daily with plans to recheck BMP at follow-up visit next week Jardiance 10 mg daily Aspirin 81 mg daily Plavix 75 mg daily Atorvastatin 40 mg daily Follow-up in our office in 1 week with BMP prior to visit.
[2023-02-04 09:00] VITALS: PULSE 76; O2SAT 98
[2023-02-04 09:52] VITALS: O2SAT 94
--- NOTE | 2023-02-04 10:57 | EXP.DC.SUM ---
General Admission date:: 02/02/23 Discharge date: 02/04/23 HPI HPI HPI: Is a 82-year-old female with past medical history of hypertension hyperlipidemia who presents to the hospital for shortness of breath, bilateral lower extremity swelling. According to the patient she has been feeling short of breath for the past 1 week, her shortness of breath gets worse. Patient, she denies acute chest pain nausea vomiting diarrhea constipation dysuria fever chills. Patient had emergent echocardiogram in the ED which did show EF 25%. Patient was taken to [facility]. Hospital Course Hospital Course Hospital Course: Mrs. Najera is a 82-year-old female with past medical history of hypertension hyperlipidemia who presents to the hospital for shortness of breath, bilateral lower extremity swelling. According to the patient she has been feeling short of breath for the past 1 week, her shortness of breath gets worse. Patient, she denies acute chest pain nausea vomiting diarrhea constipation dysuria fever chills. Patient had emergent echocardiogram in the ED which did show EF 25%. Patient was taken to [facility] 02/02. Medication adjustments made. Patient overall doing well and has shown improvement during admission. Meeting criteria for discharge home. Problems as follows: NSTEMI Heart failure with reduced ejection fraction Hypertension - Status post cath 02/02. Drug-eluting stent to the proximal LAD. Continue aspirin and Plavix. Cardiology consulted, discussed case daily, initiated on goal-directed therapy with medications as follows: Home medication recommendations: Entresto 24/26 mg twice daily Carvedilol 3.125 mg twice daily Lasix 40 mg daily Aldactone 25 mg daily Potassium 20 mEq daily Jardiance 10 mg daily Aspirin 81 mg daily Plavix 75 mg daily Atorvastatin 40 mg daily Given improvement in tolerance of medication, patient stable for discharge home. Echo was obtained showing an EF of 25%. LifeVest was fitted prior to discharge. Hyperlipidemia: LDL 69, Continue Lipitor 40 mg nightly. Acute respiratory failure secondary to CHF: Initially required oxygen supplementation during admission to maintain goal sats greater 90%. On day of discharge patient was weaned to room air. Maintain sats in the 90s. Patient ambulated with decreased to 89% but quickly recovered on room air to sats in the 90s. No oxygen prescribed on discharge. Hypokalemia: Potassium needing replacement during admission due to diuresis. Potassium 3.2 on day of discharge. Magnesium 2.2. Continue supplementation with oral potassium. Patient will continue Lasix and spironolactone. Needs repeat CBC, CMP, magnesium and follows up with cardiology. Stable for discharge home. Close follow-up with cardiology. LifeVest fitted to patient prior to discharge. Home health referral placed prior to discharge. Walker ordered prior to discharge. Daughter's questions answered. Spent 40 minutes in discharge counseling, documentation, discussion with cardiology, and direct care with patient. Exam Data for Last 24 hours Vital signs and Labs for Last 24 Hours: Temp Pulse Resp BP Pulse Ox O2 Del Method O2 Flow Rate 97.8 F 76 17 115/57 L 94 L Room Air 4 02/04/23 07:44 02/04/23 09:00 02/04/23 07:44 02/04/23 07:44 02/04/23 09:52 02/04/23 09:52 02/04/23 09:00 FiO2 4 02/03/23 06:00 Laboratory Results - last 24 hr 02/04/23 06:21: WBC 11.9 H, RBC 4.46, Hgb 13.2 D, Hct 38.5, MCV 86.2, MCH 28.4, MCHC 33.0, RDW 13.5, Plt Count 339, MPV 7.1 L, Neut % (Auto) 77.9, Lymph % (Auto) 15.9, [place] % (Auto) 5.4, Eos % (Auto) 0.4, Baso % (Auto) 0.4, Neut # (Auto) 9.2 H, Lymph # (Auto) 1.9, [place] # (Auto) 0.6, Eos # (Auto) 0.1, Baso # (Auto) 0.1, Sodium 142, Potassium 3.2 L, Chloride 105, Carbon Dioxide 31 H, Anion Gap 9.2, BUN 36 H D, Creatinine 1.00, Estimated Creat Clear 49, Estimated GFR 53 L, Est GFR ( Amer) 64, Glucose 135 H, Calcium 8.7, Magnesium 2.2, Total Bilirubi
[2023-02-04 11:15] VITALS: O2SAT 89
[2023-02-04 11:28] VITALS: BP 89/56; PULSE 89; RESP 18; TEMP 36.3; O2SAT 100
--- NOTE | 2023-02-04 11:59 | SW/DCPLANNER ---
Addendum entered by Adriana Moulton 02/04/23 13:29: Maryann shirley/ [facility] stated that services will begin this week for this patient. Original Note: Patient information/order has been faxed to [facility]. The plan for this patient is to discharge home today.
--- NOTE | 2023-02-06 11:11 | CARE MANAGER ---
Attempted to contact patient x2 related to hospital discharge. Left VM. BRITTNI Odonnell
--- NOTE | 2023-02-07 08:53 | EXP.EVENT.NO ---
I was called by patient's daughter legal services professional, as patient has had intractable tailbone pain, and apparently had some type of fall before she was admitted to the hospital last week and had a heart cath. No x-rays were in the hospital. Restless leg treatment is being undertaken but her pain is intractable. We will prescribe tramadol, given her recent heart episode she is not a candidate for NSAIDs. She is also taking Tylenol without effectiveness. She will call her primary physician, Dr. Justice next week for further recommendations.
== END 2023-02-04 14:31 | disposition home health service (06) | DRG 321 ==
LOC: ER 09:57 → CATHLAB 12:33 → 2ND 14:08
PROVIDERS: Internal Medicine; Internal Medicine Adolescent Medicine; Physician Assistant; Admitting Provider Internal Medicine; Emergency Provider Emergency Medicine; PCP Family Medicine; Visit Provider Internal Medicine
PROC: 027034Z Dilation of Coronary Artery, One Artery with Drug-eluting Intraluminal Device, Percutaneous Approach (ICD-10-PCS; principal; 2023-02-02 11:15)
DX: I21.4 Non-ST elevation (NSTEMI) myocardial infarction (principal); I50.21 Acute systolic (congestive) heart failure; J96.01 Acute respiratory failure with hypoxia; I42.9 Cardiomyopathy, unspecified; I25.10 Atherosclerotic heart disease of native coronary artery without angina pectoris; E87.6 Hypokalemia; E78.2 Mixed hyperlipidemia; I11.0 Hypertensive heart disease with heart failure
CPT/HCPCS: C9606; 36415; 71045; 80053; 82803; 83605; 83735; 83880; 84484; 85007; 85025; 85347; 87040; 92941; 93005; 93306; 93308; 93454; 94660; 94760; 94761; 99152; 99291; C1725; C1769; C1876; J1644; Q9967

== ENCOUNTER → 2023-02-12 12:22 | Outpatient (CLI) | payer MEDICARE, BC, SELFPAY | LOC: LAB 12:24 | PROVIDERS: PCP Family Medicine; Visit Provider Internal Medicine | DX: I42.8 Other cardiomyopathies (principal) | CPT/HCPCS: 36415 ==

== ENCOUNTER 2023-02-15 19:33 | Emergency (ER) | payer MEDICARE, BC, SELFPAY ==
[2023-02-15] VITALS (11 sets, daily range): BP systolic 112–169; BP diastolic 56–98; PULSE 82–106; RESP 13–18; TEMP 36.4–36.8; O2SAT 92–100; BMI 20.2
--- NOTE | 2023-02-15 19:32 | ECG_ITS ---
APPROVED REPORT Exam: Resting ECG HR:104 bpm ECG Measurements Heart Rate 104 AXES NE 170 P 74 QRSd 169 QRS -14 QT 365 T 98 QTc 426 Conclusion SINUS TACHYCARDIA POSSIBLE LEFT ATRIAL ENLARGEMENT [-0.1mV P-WAVE IN V1/V2] LEFT BUNDLE BRANCH BLOCK [120+ ms QRS DURATION, 80+ ms Q/S IN V1/V2, 85+ ms R IN I/aVL/V5/V6] ABNORMAL ECG UNCONFIRMED REPORT Electronically signed by : Dayo Gay MD 02/18/2023 09:05:36
--- NOTE | 2023-02-15 19:32 | XR_ITS ---
PROCEDURE INFORMATION: Exam: XR Chest Exam date and time: 02/15/2023 7:45 PM Age: 82 years old Clinical indication: Other: Gen weakness; Patient HX: Patient wearing life vest; Additional info: Weak TECHNIQUE: Imaging protocol: Radiologic exam of the chest. Views: 1 view. COMPARISON: CR XR CHEST PORTABLE 02/02/2023 8:32 AM FINDINGS: Tubes, catheters and devices: Wearable cardioverter/defibrillator. Lungs: Unremarkable. No consolidation. Pleural spaces: Unremarkable. No pleural effusion. No pneumothorax. Heart/Mediastinum: Calcified atherosclerotic changes of the thoracic aorta. No cardiomegaly. Bones/joints: Unremarkable. IMPRESSION: No acute pulmonary findings.
--- NOTE | 2023-02-15 19:34 | HMH.EDGENADL ---
Discharge Plan Disposition Chief Complaint: Weakness Prescriptions Prescriptions: No Action spironolactone 25 mg tablet 25 mg PO DAILY atorvastatin 40 mg Tablet 40 mg PO HS 30 Days Qty: 30 0RF clopidogrel 75 mg Tablet 75 mg PO DAILY 30 Days Qty: 30 0RF carvedilol 3.125 mg Tablet 3.125 mg PO BID 30 Days Qty: 60 0RF aspirin 81 mg Tablet,Chewable 81 mg PO DAILY 30 Days Qty: 30 0RF Jardiance 10 mg Tablet 10 mg PO DAILY 30 Days Qty: 30 0RF Entresto 24-26 mg Tablet 1 tab PO BID 30 Days Qty: 60 0RF potassium chloride [Klor-Con M20] 20 mEq Tablet,Er Particles/Crystals 20 meq PO BID 30 Days Qty: 60 0RF furosemide 40 mg Tablet 40 mg PO DAILY 30 Days Qty: 30 0RF tramadol 50 mg tablet 50 mg PO TID PRN (Reason: pain) 10 Days Qty: 30 0RF Rx Instructions: 1-2 tabs tid with tyleonl Clinical Impressions Clinical Impression: YAMEL (acute kidney injury), Acute hyperkalemia, Hypermagnesemia, Weakness Discharge ED Provider: [facility] HPI General Chief complaint: Weakness Stated complaint: weakness Time Seen by Provider: 02/15/23 19:34 History of Present Illness HPI narrative: Patient is a 82-year-old female with past medical history of cardiomyopathy, recent ACS status post stenting with inpatient hospital stay who presents emergency department for evaluation of weakness. Patient has had some weakness since she was recently discharged however it has become a little worse over the last 24 to 48 hours. Patient is normally ambulatory at home. She is still ambulatory with significant effort. No dysuria, no chest pain, no cough, no other acute complaints at this time. Per chart review recent discharge summary patient had a drug-eluting stent deployed to the proximal LAD on . Her medications were optimized. She had an ejection fraction of 25% and she was fitted for LifeVest prior to discharge. She originally presented with acute hypoxic respiratory failure and did not have chest pain of note. Related Data Home Medications Medication Instructions Recorded Confirmed spironolactone 25 mg tablet 25 mg PO DAILY 02/12/23 02/15/23 Previous Rx's Medication Instructions Recorded aspirin 81 mg chewable tablet 81 mg PO DAILY 30 days #30 tabs 02/04/23 atorvastatin 40 mg tablet 40 mg PO HS 30 days #30 tabs 02/04/23 carvedilol 3.125 mg tablet 3.125 mg PO BID 30 days #60 tabs 02/04/23 clopidogrel 75 mg tablet 75 mg PO DAILY 30 days #30 tabs 02/04/23 empagliflozin 10 mg tablet 10 mg PO DAILY 30 days #30 tabs 02/04/23 (Jardiance) furosemide 40 mg tablet 40 mg PO DAILY 30 days #30 tabs 02/04/23 potassium chloride 20 mEq 20 meq PO BID 30 days #60 tabs 02/04/23 tablet,extended release(part/cryst) (Klor-Con M) sacubitril 24 mg-valsartan 26 mg 1 tab PO BID 30 days #60 tabs 02/04/23 tablet (Entresto) tramadol 50 mg tablet 50 mg PO TID PRN pain 10 days #30 02/07/23 tabs Allergies Allergy/AdvReac Type Severity Reaction Status Date / Time Penicillins Allergy Verified 02/12/23 11:56 Sulfa (Sulfonamide Allergy Verified 02/12/23 11:56 Antibiotics) triprolidine Allergy Verified 02/12/23 11:56 [facility] Disclaimer: The information contained in this section may have been updated after the patient was seen, as this information can be updated by other users. Medical History CHF (congestive heart failure) History of left heart catheterization HLD (hyperlipidemia) Hypertension Surgical History S/P partial hysterectomy Social History Smoking Status: Never smoker alcohol intake: never current occupational status: retired Travel in the last 8 weeks: Inside the [place] ROS Obtained: Yes Systems reviewed as appropriate & no additional complaints except as documented
[2023-02-15 19:39] LABS: Basophils # 0.1 K/mm3 (0-0.2); Basophils % 0.5 % (0.1-2.0); Eosinophils # 0.2 K/mm3 (0.0-0.4); Eosinophils % 1.1 % (0.1-12.0); Hematocrit 41.1 % (37.0-47.0); Hemoglobin 13.6 g/dL (12.2-16.2); Lymphocytes # 2.2 K/mm3 (0.7-4.5); Lymphocytes % 13.9 % (10-50); Mean Corpuscular HGB Conc 33.1 g/dL (31.8-35.4); Mean Corpuscular Hemoglobin 28.9 pg (27.0-31.2); Mean Corpuscular Volume 87.2 fl (81-99); Mean Platelet Volume 7.4 fl (7.4-10.4); Monocytes # 0.7 K/mm3 (0.1-1.0); Monocytes % 4.4 % (1.7-9.3); Neutrophils # 12.6 K/mm3 (1.8-7.8); Neutrophils % 80.1 % (37.0-80.0); Platelet Count 563 K/mm3 (142-424); Red Blood Count 4.71 M/mm3 (4.20-5.40); Red Cell Distribution Width 13.4 % (11.5-17.5); White Blood Count 15.8 K/mm3 (4.8-10.8)
[2023-02-15 19:42] LABS: Coronavirus 19, PCR Not Detected (NotDetected); Influenza A, PCR Not Detected (NotDetected); Influenza B, PCR Not Detected (NotDetected)
[2023-02-15 19:44] LABS: Alanine Aminotransferase 20 U/L (12-78); Albumin Level 4.2 g/dl (3.5-5.0); Alkaline Phosphatase 166 U/L (38-126); Anion Gap 15.9 mEq/L (5-15); Aspartate Amino Transferase 24 U/L (14-36); Bilirubin,Total 0.5 mg/dl (0.2-1.3); Blood Urea Nitrogen 78 mg/dl (7-17); Calcium 8.8 mg/dl (8.4-10.2); Carbon Dioxide 23 mmol/L (22.0-30.0); Chloride 101 mmol/L (98-107); Creatinine Clearance Estimated 13 mL/min (50-200); Estimated Glomerular Filt Rate 15 ml/min (>60); GFR (African American) 18 ML/MIN (>60); Globulin 4.3 g/dL (1.3-3.2); Glucose 158 mg/dl (74-100); MANUAL DIFFERENTIAL MANUAL DIFFERENTIAL (MANUAL DIFF); Magnesium 2.8 mg/dl (1.6-2.3); Sodium 133 mmol/L (136-145); Total Protein,Serum 8.5 g/dl (6.3-8.2)
[2023-02-15 19:52] LABS: Microscopic, Urine URINE MICROSCOPIC (MICROSCOPIC)
[2023-02-15 20:00] LABS: Appearance,Urine SL CLOUDY (Clear); Bilirubin,Urine Negative (Negative); Blood, Urine TRACE-I (Negative); Color,Urine YELLOW (Yellow); Glucose,Urine (UA) TRACE (Negative); Ketones,Urine Negative (Negative); Leukocyte Esterase,Urine 2+ (Negative); Nitrate,Urine Negative (Negative); Protein,Urine TRACE (Negative); Specific Gravity, Urine 1.015 (1.005-1.030); Urobilinogen,Urine 0.2 EU/dl (0.2)
[2023-02-15 20:13] LABS: Eosinophils % 1 % (0-3); Lymphocytes % 14 % (10-50); Monocytes % 1 % (2-9); Neutrophils % 84 % (42-76); Platelet Estimate Slight Increase; RBC Morphology Normal; Total Cells Counted 100
[2023-02-15 20:17] LABS: Potassium 6.9 mmoL/L (3.5-5.1)
[2023-02-15 20:18] LABS: Troponin I < 0.01 ng/ml (0.00-0.034)
--- NOTE | 2023-02-15 20:28 | PC.NURSE ---
calling [facility] for possible transfer at this time.
[2023-02-15 20:33] LABS: Bacteria,Urine 1+ /lpf; RBC,Urine Occasional #/hpf (0-3)
--- NOTE | 2023-02-15 20:47 | PC.NURSE ---
calling at this time.
--- NOTE | 2023-02-15 20:48 | PC.NURSE ---
calling [facility] for possible transfer at this time.
--- NOTE | 2023-02-15 20:52 | PC.NURSE ---
[facility] will call us back when they get this hospitalist
--- NOTE | 2023-02-15 21:05 | PC.NURSE ---
Calling [facility] for possible transfer at this time.
--- NOTE | 2023-02-15 21:14 | PC.NURSE ---
o/p with [facility] at this time.
[2023-02-15 21:15] LABS: NT Pro Brain Natriuretic Pep. 762 pg/mL (0-450)
--- NOTE | 2023-02-15 21:22 | PC.NURSE ---
spoke with [facility] for transfer. Dr. Engel accpeting.
--- NOTE | 2023-02-15 21:39 | PC.NURSE ---
[facility] notified that pt is ready for transfer to [facility]
--- NOTE | 2023-02-15 21:44 | PC.NURSE ---
report called to BRITTNI Hernandez at [facility]
[2023-02-16] VITALS: BP 137/66; RESP 18
--- NOTE | 2023-02-18 08:33 | PC.NURSE ---
faxed urine culture to [place] 4th floor where pt is admitted, , aware
== END 2023-02-16 00:19 | disposition other institution (70) ==
PROVIDERS: Emergency Provider Emergency Medicine; PCP Family Medicine
DX: N17.9 Acute kidney failure, unspecified (principal); E87.5 Hyperkalemia; E83.41 Hypermagnesemia; R53.1 Weakness; I11.0 Hypertensive heart disease with heart failure; I50.9 Heart failure, unspecified; E78.5 Hyperlipidemia, unspecified; I44.7 Left bundle-branch block, unspecified
CPT/HCPCS: 71045; 80053; 81001; 83735; 83880; 84484; 85007; 85025; 87086; 87636; 93005; 96361; 96365; 96366; 96375; 99291; J2405

== ENCOUNTER 2023-03-11 13:37 | Inpatient (IN) | payer MEDICARE, BC, SELFPAY ==
[2023-03-11] VITALS (9 sets, daily range): BP systolic 109–184; BP diastolic 56–91; PULSE 88–122; RESP 17–22; TEMP 36.3–36.8; O2SAT 93–97; BMI 20.6; BMI 22.8
--- NOTE | 2023-03-11 13:32 | ECG_ITS ---
APPROVED REPORT Exam: Resting ECG HR:122 bpm ECG Measurements Heart Rate 122 AXES UT 130 P 73 QRSd 154 QRS -1 QT 343 T 78 QTc 415 Conclusion SINUS TACHYCARDIA LEFT BUNDLE BRANCH BLOCK [120+ ms QRS DURATION, 80+ ms Q/S IN V1/V2, 85+ ms R IN I/aVL/V5/V6] ABNORMAL ECG UNCONFIRMED REPORT Electronically signed by : Dayo Gay MD 03/12/2023 21:26:29
--- NOTE | 2023-03-11 13:33 | XR_ITS ---
FINAL REPORT CLINICAL HISTORY: weakness COMPARISON: 02/15/2023 FINDINGS: SINGLE-VIEW CHEST The heart size is normal. The mediastinum is normal. There are mild bibasilar opacities, may represent atelectasis or pneumonia. There is no pneumothorax. IMPRESSION: Mild bibasilar atelectasis or pneumonia. Reviewed, Interpreted and Dictated by Sherman Delatorre III, MD Transcribed by Makenna Bustamante Authenticated and [facility]
--- NOTE | 2023-03-11 13:34 | ECG_ITS ---
APPROVED REPORT Exam: Resting ECG HR:121 bpm ECG Measurements Heart Rate 121 AXES KS 149 P 67 QRSd 153 QRS -23 QT 339 T 125 QTc 411 Conclusion SINUS TACHYCARDIA LEFT BUNDLE BRANCH BLOCK [120+ ms QRS DURATION, 80+ ms Q/S IN V1/V2, 85+ ms R IN I/aVL/V5/V6] ABNORMAL ECG UNCONFIRMED REPORT Electronically signed by : Dayo Gay MD 03/12/2023 21:26:22
--- NOTE | 2023-03-11 13:40 | HMH.EDGENADL ---
Discharge Plan Disposition Patient Disposition: Admitted Chief Complaint: Weakness Prescriptions Prescriptions: No Action spironolactone 25 mg tablet 25 mg PO DAILY atorvastatin 40 mg Tablet 40 mg PO HS 30 Days Qty: 30 0RF clopidogrel 75 mg Tablet 75 mg PO DAILY 30 Days Qty: 30 0RF carvedilol 3.125 mg Tablet 3.125 mg PO BID 30 Days Qty: 60 0RF aspirin 81 mg Tablet,Chewable 81 mg PO DAILY 30 Days Qty: 30 0RF Jardiance 10 mg Tablet 10 mg PO DAILY 30 Days Qty: 30 0RF Entresto 24-26 mg Tablet 1 tab PO BID 30 Days Qty: 60 0RF potassium chloride [Klor-Con M20] 20 mEq Tablet,Er Particles/Crystals 20 meq PO BID 30 Days Qty: 60 0RF furosemide 40 mg Tablet 40 mg PO DAILY 30 Days Qty: 30 0RF tramadol 50 mg tablet 50 mg PO TID PRN (Reason: pain) 10 Days Qty: 30 0RF Rx Instructions: 1-2 tabs tid with tyleonl Referrals Follow up/Referrals: Rufus Justice MD [Primary Care Provider] - See instructions Clinical Impressions Clinical Impression: YAMEL (acute kidney injury), Acute hyperkalemia, Hypovolemia, Elevated troponin, Acute UTI Discharge ED Provider: Meir Acuña General Adult HPI <John Rose MD - Last Filed: 03/11/23 15:56> General Chief complaint: Weakness Stated complaint: weakness Time Seen by Provider: 03/11/23 13:40 Mode of Arrival: EMS Source of Information: Patient and EMS Limitations: No Limitations Description of Symptoms (Recalled from ER Triage Doc. by RN): Patient is brought to ED from [facility] with increased weakness. Patient is wearing a lifevest that was placed on patient in . History of Present Illness HPI narrative: Patient is a 82-year-old female with past medical history of ACS status post stenting in January, LifeVest placement, hyperkalemia and CKD who presents emergency department for evaluation of weakness. Over the last 4 days patient has not ate anything, over the last 2 days patient has not drank anything, she has global weakness. She is still able to ambulate however decreased from her baseline. Due to weakness she presents here for continued evaluation. Per chart review patient had a cath on 12?11 with a drug-eluting stent to the proximal LAD. This patient came in to see me on for weakness as well. Her workup at that time was remarkable for significant hypokalemia and hypomagnesemia with acute renal failure and patient was transported to [place]. Supposedly patient had a GI bleed at some point and was transferred to [place] for higher level of care. No other history from that standpoint is able to be obtained. There is associated nausea and intermittent nonbloody vomiting. Patient denies chest pain, shortness of breath, other acute complaints other than global weakness at this time. [facility] at the end of January patient was being worked up for contrast-induced YAMEL in the setting of heart catheterization, potassium was downtrending. Patient responded to IV fluids and had resolution of YAMEL with creatinine improved to 1.14 after volume resuscitation. Patient had a GI bleed that was started on Protonix drip and transfused 2 units and was transferred to [facility]. Related Data Home Medications Medication Instructions Recorded Confirmed spironolactone 25 mg tablet 25 mg PO DAILY 02/12/23 02/15/23 Previous Rx's Medication Instructions Recorded aspirin 81 mg chewable tablet 81 mg PO DAILY 30 days #30 tabs 02/04/23 atorvastatin 40 mg tablet 40 mg PO HS 30 days #30 tabs 02/04/23 carvedilol 3.125 mg tablet 3.125 mg PO BID 30 days #60 tabs 02/04/23 clopidogrel 75 mg tablet 75 mg PO DAILY 30 days #30 tabs 02/04/23 empagliflozin 10 mg tablet 10 mg PO DAILY 30 days #30 tabs 02/04/23 (Jardiance) furosemide 40 mg tablet 40 mg PO DAILY 30 days #30 tabs 02/04/23 potassium chloride 20 mEq 20 meq PO BID 30 days #60 tabs 02/04/23 tablet,extended release(part/cryst) (Klor-Con M) sacubitril 24 mg-valsartan 26 mg 1 tab PO BID 30 days #60 tabs 02/04/23 tablet (Entresto) tramadol 50 mg tablet 50 mg PO TID PRN pain 10 days #30 02/07/23 tabs Allergies Allergy/AdvReac Type Severity Reaction Status Date / Time Penicillins Allergy Verified 02/12/23 11:56 Sulfa (Sulfonamide Allergy Verified 02/12/23 11:56 Antibiotics) triprolidine Allergy Verified 02/12/23 11:56 PFSH <John Rose MD - Last Filed: 03/11/23 15:56> [facility] Disclaimer: The information contained in this section may have been updated after the patient was seen, as this information can be updated by other users. Medical History CHF (congestive heart failure) History of left heart catheterization HLD (hyperlipidemia) Hypertension Surgical History S/P partial hysterectomy Social History Smoking Status: Never smoker alcohol intake: never current occupational status: retired Travel in the last 8 weeks: Inside the [place] <John Rose MD - Last Filed: 03/11/23 15:56> ROS Obtained: Yes Systems reviewed as appropriate & no additional complaints except as documented Physical Exam <John Rose MD - Last Filed: 03/11/23 15:56> General General appearance: alert and cachectic Head Head exam: atraumatic and normocephalic Eye Eye exam: Present PERRL and EOMI Neck Neck exam: Present normal inspection Chest Chest inspection: Present normal inspection and symmetric chest wall rise Respiratory Respiratory exam: Present normal lung sounds bilaterally; Absent respiratory distress Cardiovascular Cardiovascular exam: Present normal rhythm, tachycardia and other (Significantly delayed capillary refill bilateral upper extremities with digital cyanosis bilaterally) Abdominal Exam Abdominal exam: Present soft; Absent tenderness Extremities Exam Extremities exam: Present normal inspection Neurological Exam Neurological exam: Present alert Psychiatric Psychiatric exam: Present normal affect Skin Skin exam: Present warm and dry Medical Decision Making <John Rose MD - Last Filed: 03/11/23 15:56> Zbigniew Inquiry Pt receiving controlled substance: No Vital Signs: 03/11/23 13:34 03/11/23 15:08 03/11/23 15:31 Temperature 97.8 F Temperature Source Oral Pulse Rate 89 106 H Pulse Rate [Right Brachial] 122 H Respiratory Rate 18 20 19 Blood Pressure 109/56 L 126/81 Blood Pressure [Right Arm] 184/91 H Blood Pressure Mean Blood Pressure Mean [Right Arm] 122 Blood Pressure Source [Right Arm] Automatic Cuff Blood Pressure Position [Right Arm] Sitting 02 Sat by Pulse Oximetry 96 95 94 L Oxygen Delivery Method Room Air Room Air 03/11/23 16:00 03/11/23 16:30 03/11/23 17:30 Temperature Temperature Source Pulse Rate Pulse Rate [Right Brachial] Respiratory Rate 21 21 17 Blood Pressure 138/67 142/71 H 133/60 Blood Pressure [Right Arm] Blood Pressure Mean 90 94 Blood Pressure Mean [Right Arm] Blood Pressure Source [Right Arm] Blood Pressure Position [Right Arm] 02 Sat by Pulse Oximetry 93 L Oxygen Delivery Method 03/11/23 18:00 Temperature Temperature Source Pulse Rate 101 H Pulse Rate [Right Brachial] Respiratory Rate 22 Blood Pressure 137/75 Blood Pressure [Right Arm] Blood Pressure Mean Blood Pressure Mean [Right Arm] Blood Pressure Source [Right Arm] Blood Pressure Position [Right Arm] 02 Sat by Pulse Oximetry 93 L Oxygen Delivery Method Lab Data Lab Results 03/11/23 14:25: WBC 12.9 H, RBC 4.33, Hgb 13.2, Hct 40.5, MCV 93.6, MCH 30.6, MCHC 32.6, RDW 15.4, Plt Count 326, MPV 7.6, Neut % (Auto) 79.0, Lymph % (Auto) 14.2, Ward % (Auto) 5.8, Eos % (Auto) 0.5, Baso % (Auto) 0.4, Neut # (Auto) 10.2 H, Lymph # (Auto) 1.8, Ward # (Auto) 0.8, Eos # (Auto) 0.1, Baso # (Auto) 0.1, Sodium 137, Potassium 5.9 H, Chloride 96 L, Carbon Dioxide 28, Anion Gap 18.9 H, BUN 62 H, Creatinine 3.40 H, Estimated Creat Clear 11, Estimated GFR 13 L*, Est GFR ( Amer) 16 L*, Glucose 100, Lactate 1.6, Calcium 9.0, Total Bilirubin 0.8, AST 30, ALT 17, Alkaline Phosphatase 174 H, Troponin I 0.07 H, NT-Pro-B Natriuret Pep 3420 H, Total Protein 8.0, Albumin 3.8, Globulin 4.2 H, Albumin/Globulin Ratio 0.9 L 03/11/23 14:42: SARS-CoV-2 (PCR) Not detected, Influenza A Untype (PCR) Not detected, Influenza Type B (PCR) Not detected 03/11/23 17:08: Troponin I 0.07 H 03/11/23 17:23: Urine Color Yellow, Urine Appearance Cloudy, Urine pH 6.0, Ur Specific [place] 1.015, Urine Protein 1+, Urine Glucose (UA) Negative, Urine Ketones Trace, Urine Blood 1+, Urine Nitrate Negative, Urine Bilirubin Negative, Urine Urobilinogen 0.2, Ur Leukocyte Esterase 2+ A, Urine RBC Occasional, Urine WBC Tntc, Ur Squamous Epith Cells None, Urine Bacteria Trace 03/11/23 14:25 03/11/23 14:25 Orders (Tests/Meds): ED MEDICATIONS Discontinued Medications Generic Name Dose Route Start Last Admin Trade Name Freq PRN Reason Stop Dose Admin Furosemide 60 mg 03/11/23 15:37 03/11/23 16:28 Furosemide 40mg/4ml Vial IV 03/11/23 15:38 Not Given ONCE ONE Lactated Ringer's 1,000 mls @ 999 mls/hr 03/11/23 13:33 03/11/23 13:47 Lactated Ringer's 1000 Ml Bag IV 03/11/23 14:33 999 mls/hr .Q1H1M ONE Administration Calcium Gluconate 2,000 mg/ 120 mls @ 60 mls/hr 03/11/23 13:39 03/11/23 13:47 Sodium Chloride IV 03/11/23 15:38 60 mls/hr ONCE ONE Administration Ceftriaxone Sodium 1 gm/ 50 mls @ 100 mls/hr 03/11/23 17:51 03/11/23 18:00 Sodium Chloride IV 03/11/23 18:20 100 mls/hr ONCE ONE Administration Ondansetron HCl 4 mg 03/11/23 15:30 03/11/23 15:35 Ondansetron 4mg/2ml Vial IV 03/11/23 15:31 4 mg ONCE ONE Administration Sodium Zirconium Cyclosilicate 10 gm 03/11/23 15:43 03/11/23 16:07 Lokelma 5gm Packet PO 03/11/23 15:44 10 gm ONCE ONE Administration ORDERS Category Date Time Status CXR --portable [XR chest portable] Stat Exams 03/11/23 13:33 Completed BNP [Brain Natriuretic Peptide] Stat Lab 03/11/23 14:25 Completed CBC w/Auto Diff [Complete Blood Count Auto Diff] Stat Lab 03/11/23 14:25 Completed CMP [Comprehensive Metabolic Panel] Stat Lab 03/11/23 14:25 Completed Lactic Acid Stat Lab 03/11/23 14:25 Completed Rapid PCR Covid and Flu A/B Stat Lab 03/11/23 14:42 Completed Trop I [Troponin I] Stat Lab 03/11/23 14:25 Completed Troponin I Q3H Lab 03/11/23 17:08 Completed Troponin I Q3H Lab 03/11/23 19:45 Ordered UA [Urinalysis and Microscopic] Stat Lab 03/11/23 17:23 Completed Blood Culture Stat Micro 03/11/23 15:04 Received Urine Culture Stat Micro 03/11/23 17:23 Received VBG [Venous Blood Gas] Stat RT 03/11/23 15:04 Received ECG Data Tracing #1: Independently interpreted by me, rate is 122, rhythm is regular, left bundle branch block, peaked T waves, negative Sgarbossa, significant chatter, QTc 415. Medical Decision Narrative: In summary patient is a 82-year-old female with past medical history described above who presents emergency department for evaluation of weakness. Patient is tachycardic upon arrival with digital cyanosis. Patient has decreased ejection fraction at bedside on [id number] ultrasound (images were not saved to apartment archive therefore no note is warranted). I suspect that patient has multifactorial shock, predominantly hypovolemic given history. Differential includes hyperkalemia, hypomagnesemia, worsening acute renal failure, silent ACS, among others. Workup will be conducted with hematologic labs, chest x-ray, EKG, serial troponins. Initial interventions include crystalloid bolus. Patient is afebrile and has no signs of focal infection so empiric antibiotics will be deferred. Initial workup reviewed by me, hematologic labs remarkable for hypokalemia, YAMEL, elevated troponin in the setting of elevated creatinine. Upon repeat evaluation patient is responding well to crystalloid resuscitation with downtrending heart rate, no more cyanosis of the extremities. Given previous normalization of creatinine on hospital stay and history of hypovolemia recently I suspect hypovolemic prerenal YAMEL. At handoff Lokelma will be administered and continued resuscitation, serial troponins, repeat evaluation was pending at time of transfer of care to [facility], Dr. Acuña. <Meir Acuña MD - Last Filed: 03/11/23 19:04> Vital Signs: 03/11/23 13:34 03/11/23 15:08 03/11/23 15:31 Temperature 97.8 F Temperature Source Oral Pulse Rate 89 106 H Pulse Rate [Right Brachial] 122 H Respiratory Rate 18 20 19 Blood Pressure 109/56 L 126/81 Blood Pressure [Right Arm] 184/91 H Blood Pressure Mean Blood Pressure Mean [Right Arm] 122 Blood Pressure Source [Right Arm] Automatic Cuff Blood Pressure Position [Right Arm] Sitting 02 Sat by Pulse Oximetry 96 95 94 L Oxygen Delivery Method Room Air Room Air 03/11/23 16:00 03/11/23 16:30 03/11/23 17:30 Temperature Temperature Source Pulse Rate Pulse Rate [Right Brachial] Respiratory Rate 21 21 17 Blood Pressure 138/67 142/71 H 133/60 Blood Pressure [Right Arm] Blood Pressure Mean 90 94 Blood Pressure Mean [Right Arm] Blood Pressure Source [Right Arm] Blood Pressure Position [Right Arm] 02 Sat by Pulse Oximetry 93 L Oxygen Delivery Method 03/11/23 18:00 Temperature Temperature Source Pulse Rate 101 H Pulse Rate [Right Brachial] Respiratory Rate 22 Blood Pressure 137/75 Blood Pressure [Right Arm] Blood Pressure Mean Blood Pressure Mean [Right Arm] Blood Pressure Source [Right Arm] Blood Pressure Position [Right Arm] 02 Sat by Pulse Oximetry 93 L Oxygen Delivery Method Lab Data Lab Results 03/11/23 14:25: WBC 12.9 H, RBC 4.33, Hgb 13.2, Hct 40.5, MCV 93.6, MCH 30.6, MCHC 32.6, RDW 15.4, Plt Count 326, MPV 7.6, Neut % (Auto) 79.0, Lymph % (Auto) 14.2, Ward % (Auto) 5.8, Eos % (Auto) 0.5, Baso % (Auto) 0.4, Neut # (Auto) 10.2 H, Lymph # (Auto) 1.8, Ward # (Auto) 0.8, Eos # (Auto) 0.1, Baso # (Auto) 0.1, Sodium 137, Potassium 5.9 H, Chloride 96 L, Carbon Dioxide 28, Anion Gap 18.9 H, BUN 62 H, Creatinine 3.40 H, Estimated Creat Clear 11, Estimated GFR 13 L*, Est GFR ( Amer) 16 L*, Glucose 100, Lactate 1.6, Calcium 9.0, Total Bilirubin 0.8, AST 30, ALT 17, Alkaline Phosphatase 174 H, Troponin I 0.07 H, NT-Pro-B Natriuret Pep 3420 H, Total Protein 8.0, Albumin 3.8, Globulin 4.2 H, Albumin/Globulin Ratio 0.9 L 03/11/23 14:42: SARS-CoV-2 (PCR) Not detected, Influenza A Untype (PCR) Not detected, Influenza Type B (PCR) Not detected 03/11/23 17:08: Troponin I 0.07 H 03/11/23 17:23: Urine Color Yellow, Urine Appearance Cloudy, Urine pH 6.0, Ur Specific [place] 1.015, Urine Protein 1+, Urine Glucose (UA) Negative, Urine Ketones Trace, Urine Blood 1+, Urine Nitrate Negative, Urine Bilirubin Negative, Urine Urobilinogen 0.2, Ur Leukocyte Esterase 2+ A, Urine RBC Occasional, Urine WBC Tntc, Ur Squamous Epith Cells None, Urine Bacteria Trace Orders (Tests/Meds): ED MEDICATIONS Discontinued Medications Generic Name Dose Route Start Last Admin Trade Name Freq PRN Reason Stop Dose Admin Furosemide 60 mg 03/11/23 15:37 03/11/23 16:28 Furosemide 40mg/4ml Vial IV 03/11/23 15:38 Not Given ONCE ONE Lactated Ringer's 1,000 mls @ 999 mls/hr 03/11/23 13:33 03/11/23 13:47 Lactated Ringer's 1000 Ml Bag IV 03/11/23 14:33 999 mls/hr .Q1H1M ONE Administration Calcium Gluconate 2,000 mg/ 120 mls @ 60 mls/hr 03/11/23 13:39 03/11/23 13:47 Sodium Chloride IV 03/11/23 15:38 60 mls/hr ONCE ONE Administration Ceftriaxone Sodium 1 gm/ 50 mls @ 100 mls/hr 03/11/23 17:51 03/11/23 18:00 Sodium Chloride IV 03/11/23 18:20 100 mls/hr ONCE ONE Administration Ondansetron HCl 4 mg 03/11/23 15:30 03/11/23 15:35 Ondansetron 4mg/2ml Vial IV 03/11/23 15:31 4 mg ONCE ONE Administration Sodium Zirconium Cyclosilicate 10 gm 03/11/23 15:43 03/11/23 16:07 Lokelma 5gm Packet PO 03/11/23 15:44 10 gm ONCE ONE Administration ORDERS Category Date Time Status CXR --portable [XR chest portable] Stat Exams 03/11/23 13:33 Completed BNP [Brain Natriuretic Peptide] Stat Lab 03/11/23 14:25 Completed CBC w/Auto Diff [Complete Blood Count Auto Diff] Stat Lab 03/11/23 14:25 Completed CMP [Comprehensive Metabolic Panel] Stat Lab 03/11/23 14:25 Completed Lactic Acid Stat Lab 03/11/23 14:25 Completed Rapid PCR Covid and Flu A/B Stat Lab 03/11/23 14:42 Completed Trop I [Troponin I] Stat Lab 03/11/23 14:25 Completed Troponin I Q3H Lab 03/11/23 17:08 Completed Troponin I Q3H Lab 03/11/23 19:45 Ordered UA [Urinalysis and Microscopic] Stat Lab 03/11/23 17:23 Completed Blood Culture Stat Micro 03/11/23 15:04 Received Urine Culture Stat Micro 03/11/23 17:23 Received VBG [Venous Blood Gas] Stat RT 03/11/23 15:04 Received Medical Decision Narrative: In summary patient is a 82-year-old female with past medical history described above who presents emergency department for evaluation of weakness. Patient is tachycardic upon arrival with digital cyanosis. Patient has decreased ejection fraction at bedside on [id number] ultrasound (images were not saved to apartment archive therefore no note is warranted). I suspect that patient has multifactorial shock, predominantly hypovolemic given history. Differential includes hyperkalemia, hypomagnesemia, worsening acute renal failure, silent ACS, among others. Workup will be conducted with hematologic labs, chest x-ray, EKG, serial troponins. Initial interventions include crystalloid bolus. Patient is afebrile and has no signs of focal infection so empiric antibiotics will be deferred. Initial workup reviewed by me, hematologic labs remarkable for hypokalemia, YAMEL, elevated troponin in the setting of elevated creatinine. Upon repeat evaluation patient is responding well to crystalloid resuscitation with downtrending heart rate, no more cyanosis of the extremities. Given previous normalization of creatinine on hospital stay and history of hypovolemia recently I suspect hypovolemic prerenal YAMEL. At handoff Lokelma will be administered and continued resuscitation, serial troponins, repeat evaluation was pending at time of transfer of care to the oncoming physician, Dr. Acuña. Arianne: I assume primary responsibility for this patient after signout from previous physician. 82-year-old female coming in with severe dehydration and hypovolemic shock responding very well to fluids. On my evaluation, capillary refill improving, blood pressure 130/85, pulse rate in the 90s. Independently interpreted labs, patient with leukocytosis 12.9, largely nonactionable. She does have an YAMEL with creatinine 3.4, associated potassium 5.9, troponin 0.07, and BNP 3400. These are likely related to severe dehydration and renal impairment. Patient was placed in observation beginning at 3 PM in order to rule out evolving [place] with delta troponins, fluid resuscitate and determine need for admission versus home-going. The patient was provided fluids, serial exams, monitoring while awaiting results. Independent interpretation of results demonstrated UTI, received Rocephin. Negative delta troponin. On reevaluation, patient feeling better, but given labs and presentation, would benefit from admission. At this time, I feel patient is appropriate for admission. Total observation time 4 hours. Admitting team was contacted and case was discussed at length, see their note for recommendations. Patient be admitted for YAMEL, hyperkalemia, UTI, generalized weakness, and possible need for placement. Critical Care <John Rose MD - Last Filed: 03/11/23 15:56> Critical Care Time Critical Care Time: No
[2023-03-11] MEDS: CALCIUM GLUCONATE 2,000 MG in 0.9 % SODIUM CHLORIDE 100 ML 60 MG IV (13:47)
[2023-03-11] MEDS: LACTATED RINGERS 1000ML 1,000 ML 999 ML IV (13:47)
--- OUTSIDE RECORDS SUMMARY | 2023-03-11 13:48 | XMS_ITS | Patient Health Record ---
Author Name Unknown Organization [facility] Billing Info Address [address] [place] [address] Care Team Providers Care Retail Client Solutions Analyst Name Role Phone JENIFER JAMES Unavailable [phone] Reason For Referral No Information Social History Tobacco Use: Social History Observation Description Date Smoking Status WARNING: Information temporarily unavailable Tobacco Status: Question Answer Notes Patient is a never smoker Encounters Encounter Location Date Provider Diagnosis [id number] [address] [place] [id number] 02/18/2023 JENIFER JAMES Plan Of Treatment No Information Insurance Providers Payer Name Payer Address Payer Phone Subscriber Number Group Number Insured Name Patient Relationship to Insured Coverage Start Date Coverage End Date T[employer] NON-HMO [address] [place], [place] [id number] Barbara Hopkins Self - patient is the insured MEDICARE [place] PART B [address] [place], [place] [id number] Mushtaq christensen Barbara Self - patient is the insured
--- NOTE | 2023-03-11 13:50 | PC.NURSE ---
CALLED [facility] FOR MEDICAL RECORDS FROM PT LAST VISIT
[2023-03-11 14:56] LABS: Basophils # 0.1 K/mm3 (0-0.2); Basophils % 0.4 % (0.1-2.0); Eosinophils # 0.1 K/mm3 (0.0-0.4); Eosinophils % 0.5 % (0.1-12.0); Hematocrit 40.5 % (37.0-47.0); Hemoglobin 13.2 g/dL (12.2-16.2); Lymphocytes # 1.8 K/mm3 (0.7-4.5); Lymphocytes % 14.2 % (10-50); Mean Corpuscular HGB Conc 32.6 g/dL (31.8-35.4); Mean Corpuscular Hemoglobin 30.6 pg (27.0-31.2); Mean Corpuscular Volume 93.6 fl (81-99); Mean Platelet Volume 7.6 fl (7.4-10.4); Monocytes # 0.8 K/mm3 (0.1-1.0); Monocytes % 5.8 % (1.7-9.3); Neutrophils # 10.2 K/mm3 (1.8-7.8); Platelet Count 326 K/mm3 (142-424); Red Blood Count 4.33 M/mm3 (4.20-5.40); Red Cell Distribution Width 15.4 % (11.5-17.5); White Blood Count 12.9 K/mm3 (4.8-10.8)
[2023-03-11 15:01] LABS: Coronavirus 19, PCR Not Detected (NotDetected); Influenza A, PCR Not Detected (NotDetected); Influenza B, PCR Not Detected (NotDetected)
[2023-03-11 15:04] LABS: Chloride 96 mmol/L (98-107); Potassium 5.9 mmoL/L (3.5-5.1); Sodium 137 mmol/L (136-145)
[2023-03-11 15:06] LABS: Blood Urea Nitrogen 62 mg/dl (7-17); Creatinine Clearance Estimated 11 mL/min (50-200); Estimated Glomerular Filt Rate 13 ml/min (>60); GFR (African American) 16 ML/MIN (>60)
[2023-03-11 15:07] LABS: Alanine Aminotransferase 17 U/L (12-78); Albumin Level 3.8 g/dl (3.5-5.0); Albumin/Globulin Ratio 0.9 (1.1-1.8); Alkaline Phosphatase 174 U/L (38-126); Anion Gap 18.9 mEq/L (5-15); Aspartate Amino Transferase 30 U/L (14-36); Bilirubin,Total 0.8 mg/dl (0.2-1.3); Carbon Dioxide 28 mmol/L (22.0-30.0); Globulin 4.2 g/dL (1.3-3.2); Glucose 100 mg/dl (74-100)
[2023-03-11 15:11] LABS: Lactic Acid 1.6 mmol/L (0.7-2.1)
[2023-03-11 15:18] LABS: NT Pro Brain Natriuretic Pep. 3420 pg/mL (0-450)
[2023-03-11 15:20] LABS: Troponin I 0.07 ng/ml (0.00-0.034)
[2023-03-11] MEDS: ONDANSETRON 4MG/2ML VIAL 4 MG IV ×2 (15:35→20:04)
[2023-03-11] MEDS: LOKELMA 5GM PACKET 10 GM PO (16:07)
[2023-03-11 17:29] LABS: Microscopic, Urine URINE MICROSCOPIC (MICROSCOPIC)
[2023-03-11 17:44] LABS: Appearance,Urine CLOUDY (Clear); Bilirubin,Urine Negative (Negative); Blood, Urine 1+ (Negative); Color,Urine YELLOW (Yellow); Glucose,Urine (UA) Negative (Negative); Ketones,Urine TRACE (Negative); Leukocyte Esterase,Urine 2+ (Negative); Nitrate,Urine Negative (Negative); Protein,Urine 1+ (Negative); Specific Gravity, Urine 1.015 (1.005-1.030); Urobilinogen,Urine 0.2 EU/dl (0.2)
[2023-03-11 17:48] LABS: Bacteria,Urine Trace /lpf; RBC,Urine Occasional #/hpf (0-3); WBC,Urine TNTC #/hpf (0-3)
[2023-03-11 17:51] LABS: Troponin I 0.07 ng/ml (0.00-0.034)
[2023-03-11] MEDS: CEFTRIAXONE SODIUM 1 GM in 0.9 % SODIUM CHLORIDE 50 ML IV (18:00)
--- NOTE | 2023-03-11 18:58 | PC.NURSE ---
DR VERONICA SPEAKING WITH DR VITAL
--- NOTE | 2023-03-11 19:04 | PC.NURSE ---
house called for bed
--- NOTE | 2023-03-11 19:22 | PC.NURSE ---
OBSERVATION ADMISSION TO 213 WITH DX OF UTI TO SERVICE OF DR. VITAL TO [facility].
[2023-03-11] MEDS: 0.9 % SODIUM CHLORIDE 1000ML 1,000 ML 75 ML IV (19:58)
--- NOTE | 2023-03-11 20:37 | PC.NURSE ---
pt arrived to the floor via stretcher @19:41
[2023-03-11 20:41] LABS: Troponin I 0.07 ng/ml (0.00-0.034)
[2023-03-11] MEDS: PROMETHAZINE HCL 25MG/ML 1ML VIAL 12.5 MG IV (21:27)
[2023-03-11] MEDS: SODIUM CHLORIDE 0.9% 25ML BAG 25 ML IV (21:27)
[2023-03-12 03:38] VITALS: BMI 22.8
[2023-03-12 04:00] VITALS: BP 135/61; PULSE 85; RESP 18; TEMP 36.6; O2SAT 93; BMI 23.1
--- NOTE | 2023-03-12 05:36 | PC.NURSE ---
Patient admitted early in shift for YAMEL, UTI, and Dehydration. Patient experience acute episodes of nausea/vomiting which was addressed after speaking to golf professional MD and medicating per MAR. Patient rested well afterwards. Adequate urinary output via collier catheter with cloudy, yellow, foul smelling urine. No other acute changes noted. VSS
[2023-03-12 07:35] VITALS: BP 142/66; PULSE 89; RESP 17; TEMP 36.7; O2SAT 95
--- NOTE | 2023-03-12 07:40 | HMH.PHAINT1 ---
Pharmacy Intervention Comments: Home med list verified with patient at bedside and with external pharmacy list.
[2023-03-12] MEDS: 0.9 % SODIUM CHLORIDE 1000ML 1,000 ML 75 ML IV ×2 (07:56→23:09)
--- OUTSIDE RECORDS SUMMARY | 2023-03-12 08:28 | XMS_ITS | Patient Health Record ---
Author Name Unknown Organization [facility] Billing Info Address [address] [place] [address] Care Team Providers Care Gold Beater Name Role Phone JENIFER JAMES Unavailable [phone] Reason For Referral No Information Social History Tobacco Use: Social History Observation Description Date Smoking Status WARNING: Information temporarily unavailable Tobacco Status: Question Answer Notes Patient is a never smoker Encounters Encounter Location Date Provider [id number] [address] [place] [id number] 02/18/2023 JENIFER JAMES Plan Of Treatment No Information Insurance Providers Payer Name Payer Address Payer Phone Subscriber Number Group Number Insured Name Patient Relationship to Insured Coverage Start Date Coverage End Date TESSYKY NON-HMO [address] [place], [place] [id number] [phone] [id number] Barbara Hopkins Self - patient is the insured MEDICARE [place] PART B [address] [place], [place] [id number] Mushtaq christensen Barbara Self - patient is the insured
[2023-03-12] MEDS: ONDANSETRON 4MG/2ML VIAL 4 MG IV ×2 (08:34→15:04)
--- NOTE | 2023-03-12 08:38 | EXP.HP ---
History of Present Illness *History of present illness: Patient is a 82-year-old female with past medical history of ACS status post stenting in January, LifeVest placement, hyperkalemia and CKD who presents emergency department for evaluation of weakness. Over the last 4 days patient has not ate anything, over the last 2 days patient has not drank anything, she has global weakness. She is still able to ambulate however decreased from her baseline. Due to weakness she presents here for continued evaluation. Per chart review patient had a cath on with a drug-eluting stent to the proximal LAD. This patient came in to see me on 24 for weakness as well. Her workup at that time was remarkable for significant hypokalemia and hypomagnesemia with acute renal failure and patient was transported to [place]. Supposedly patient had a GI bleed at some point and was transferred to [place] for higher level of care. No other history from that standpoint is able to be obtained. There is associated nausea and intermittent nonbloody vomiting. Patient denies chest pain, shortness of breath, other acute complaints other than global weakness at this time. Review of [facility] discharge summary at the end of January patient was being worked up for contrast-induced YAMEL in the setting of heart catheterization, potassium was downtrending. Patient responded to IV fluids and had resolution of YAMEL with creatinine improved to 1.14 after volume resuscitation. Patient had a GI bleed that was started on Protonix drip and transfused 2 units and was transferred to [facility]. (above as per ER physician) The ER physician felt she was in hypovolemic shock. The patient was started on IV fluids. Her labs revealed hyperkalemia, acute kidney injury, and an elevated troponin in the setting of an elevated creatinine. Her heart rate did improve with crystalloid resuscitation and the cyanosis of her extremities improved. She was given Lokelma for her hyperkalemia. She was also found to have a UTI and was given Rocephin. She was admitted for her acute kidney injury, hyperkalemia, UTI, weakness, and possible need for placement in a retirement. The patient states she stays nauseated daily. She has been unable to eat and drink at home due to the nausea. She also developed stomatitis a few days ago and this has also prevented her from eating and drinking. [facility] Disclaimer: The information contained in this section may have been updated after the patient was seen, as this information can be updated by other users. Medical History (Updated 03/12/23 @ 09:59 by GRACIE Freed) ASCVD (arteriosclerotic cardiovascular disease) CHF (congestive heart failure) History of left heart catheterization HLD (hyperlipidemia) Hypertension Ischemic cardiomyopathy NSTEMI (non-ST elevated myocardial infarction) Surgical History (Updated 03/12/23 @ 09:59 by GRACIE Freed) History of cardiac cath S/P partial hysterectomy Family History No significant family history Social History (Updated 03/11/23 @ 21:12 by Marquis Salmon, RN) Smoking Status: Never smoker alcohol intake: never current occupational status: retired Travel in the last 8 weeks: None Review of Systems Constitutional Constitutional: Reports anorexia, Reports fatigue, Denies fever(s), Denies headache(s), Reports poor appetite and Reports weakness Eyes Eyes: Denies blurry vision and Denies diplopia ENT Ears, Nose, Mouth, and Throat: Reports dry mouth (stomatitis), Denies headache(s), Denies sore throat and Denies vertigo *Cardiovascular Cardiovascular: Denies chest pain and Denies dyspnea *Respiratory Respiratory: Denies cough and Denies dyspnea *Gastrointestinal Gastrointestinal: Denies abdominal pain, Reports constipation, Denies diarrhea, Reports nausea and Denies vomiting *Genitourinary Genitourinary: Denies difficulty voiding and Denies dysuria *Musculoskeletal Musculoskeletal: Denies arthralgias and Denies myalgias *Neurologic Neurologic: Denies headache(s), Denies vertigo and Reports weakness Endocrine Endocrine: Reports fatigue Meds Home Medications and Allergies Home Medications Medication Instructions Recorded Confirmed Type amlodipine 5 mg tablet 5 mg PO DAILY 03/11/23 03/11/23 History aspirin 81 mg chewable tablet 81 mg PO DAILY 03/11/23 03/11/23 History atorvastatin 40 mg tablet 40 mg PO HS 03/11/23 03/11/23 History carvedilol 3.125 mg tablet 3.125 mg PO BID 03/11/23 03/11/23 History clopidogrel 75 mg tablet 75 mg PO DAILY 03/11/23 03/11/23 History empagliflozin 10 mg tablet 10 mg PO DAILY 03/11/23 03/11/23 History (Jardiance) furosemide 40 mg tablet 40 mg PO DAILY 03/11/23 03/11/23 History potassium chloride 20 mEq 20 meq PO BID 03/11/23 03/11/23 History tablet,extended release(part/cryst) ropinirole 0.5 mg tablet 0.5 mg PO HS 03/11/23 03/11/23 History sacubitril 24 mg-valsartan 26 mg 1 tab PO BID 03/11/23 03/11/23 History tablet (Entresto) spironolactone 25 mg tablet 25 mg PO DAILY 03/11/23 03/11/23 History tramadol 50 mg tablet 50 mg PO QID PRN Pain 03/11/23 03/12/23 History ondansetron 4 mg disintegrating 4 mg translingual Q8H PRN Nausea 03/12/23 03/12/23 History tablet And Vomiting scopolamine base 1 mg over 3 days 1 patch transdermal .EVERY 3 DAYS 03/12/23 03/12/23 History transdermal patch PRN Nausea New Prescriptions to Start Prescriptions: Allergies Allergy/AdvReac Type Severity Reaction Status Date / Time Penicillins Allergy Verified 02/12/23 11:56 Sulfa (Sulfonamide Allergy Verified 02/12/23 11:56 Antibiotics) triprolidine Allergy Verified 02/12/23 11:56 Exam Data for Last 24 hours Vital signs and Labs for Last 24 Hours: Temp Pulse Resp BP Pulse Ox O2 Del Method 98.1 F 89 17 142/66 H 95 Room Air 03/12/23 07:35 03/12/23 07:35 03/12/23 07:35 03/12/23 07:35 03/12/23 07:35 03/12/23 08:00 Laboratory Results - last 24 hr 03/11/23 14:25: WBC 12.9 H, RBC 4.33, Hgb 13.2, Hct 40.5, MCV 93.6, MCH 30.6, MCHC 32.6, RDW 15.4, Plt Count 326, MPV 7.6, Neut % (Auto) 79.0, Lymph % (Auto) 14.2, Alfalfa % (Auto) 5.8, Eos % (Auto) 0.5, Baso % (Auto) 0.4, Neut # (Auto) 10.2 H, Lymph # (Auto) 1.8, Alfalfa # (Auto) 0.8, Eos # (Auto) 0.1, Baso # (Auto) 0.1, Sodium 137, Potassium 5.9 H, Chloride 96 L, Carbon Dioxide 28, Anion Gap 18.9 H, BUN 62 H, Creatinine 3.40 H, Estimated Creat Clear 11, Estimated GFR 13 L*, Est GFR ( Amer) 16 L*, Glucose 100, Lactate 1.6, Calcium 9.0, Total Bilirubin 0.8, AST 30, ALT 17, Alkaline Phosphatase 174 H, Troponin I 0.07 H, NT-Pro-B Natriuret Pep 3420 H, Total Protein 8.0, Albumin 3.8, Globulin 4.2 H, Albumin/Globulin Ratio 0.9 L 03/11/23 14:42: SARS-CoV-2 (PCR) Not detected, Influenza A Untype (PCR) Not detected, Influenza Type B (PCR) Not detected 03/11/23 17:08: Troponin I 0.07 H 03/11/23 17:23: Urine Color Yellow, Urine Appearance Cloudy, Urine pH 6.0, Ur Specific [place] 1.015, Urine Protein 1+, Urine Glucose (UA) Negative, Urine Ketones Trace, Urine Blood 1+, Urine Nitrate Negative, Urine Bilirubin Negative, Urine Urobilinogen 0.2, Ur Leukocyte Esterase 2+ A, Urine RBC Occasional, Urine WBC Tntc, Ur Squamous Epith Cells None, Urine Bacteria Trace 03/11/23 19:55: Troponin I 0.07 H I & O for Last 24 hours: Intake & Output 03/09/23 03/10/23 03/11/23 03/12/23 11:59 11:59 11:59 11:59 Intake Total 1079.5 / 1079.5 Output Total 750 / 750 Balance 329.5 / 329.5 Weight 139 lb 4 oz Constitutional Constitutional: no acute distress *Routine HEENT Exam Head: Present normocephalic and atraumatic Eye: Present EOMI and PERRL ENT: Present mucous membranes dry and other (stomatitis present) *Routine Neck Exam Neck: Present supple and full ROM *Routine Respiratory Exam Respiratory: Present CTA bilaterally *Routine Cardiovascular Exam Cardiovascular: Present RRR *Routine Abdominal Exam Abdominal: Present soft and normoactive bowel sounds; Absent tenderness *Routine Rectal Exam Rectal:: deferred *Routine Genitalia Exam Genitalia:: deferred *Routine Extremities Exam Extremities: Absent cyanosis, clubbing or edema *Routine Skin Exam Skin: Present intact and dry; Absent erythema *Routine Neurological Exam Neurological: Present alert and oriented X3 H&P: Result Impressions CXR - Mild bibasilar atelectasis or pneumonia. Assessment and Plan *Assessment and plan (1) YAMEL (acute kidney injury): Status: Acute Category: Medical Code(s): N17.9 - Acute kidney failure, unspecified (2) Acute hyperkalemia: Status: Acute Category: Medical Code(s): E87.5 - Hyperkalemia (3) Weakness: Status: Acute Category: Medical Code(s): R53.1 - Weakness (4) Hypovolemia: Status: Acute Category: Medical Code(s): E86.1 - Hypovolemia (5) Acute UTI: Status: Acute Category: Medical Code(s): N39.0 - Urinary tract infection, site not specified (6) Stomatitis: Status: Acute Category: Medical Code(s): K12.1 - Other forms of stomatitis (7) Elevated troponin: Status: Acute Category: Medical Code(s): R79.89 - Other specified abnormal findings of blood chemistry (8) Coronary artery disease: Status: Acute Qualifiers: Associated angina: without angina Coronary Disease-Associated Artery/Lesion type: [place] artery [place] vs. transplanted heart: [place] heart Qualified Code(s): I25.10 - Atherosclerotic heart disease of [place] coronary artery without angina pectoris Category: Medical Code(s): I25.10 - Atherosclerotic heart disease of [place] coronary artery without angina pectoris (9) Cardiomyopathy: Status: Acute Category: Medical Code(s): I42.9 - Cardiomyopathy, unspecified (10) HTN (hypertension): Status: Acute Qualifiers: Hypertension type: unspecified Qualified Code(s): I10 - Essential (primary) hypertension Category: Medical Code(s): I10 - Essential (primary) hypertension (11) Hyperlipidemia: Status: Acute Qualifiers: Hyperlipidemia type: mixed hyperlipidemia Qualified Code(s): E78.2 - Mixed hyperlipidemia Category: Medical Code(s): E78.5 - Hyperlipidemia, unspecified Plan Will continue hydration and start on a clear liquid diet and start on sennosides for constipation. Will also order magic mouthwash for the stomatitis. She has been started on antiemetics as well. Dr. Linda entry - Saw patient, agree with above note.
[2023-03-12] MEDS: PROMETHAZINE HCL 25MG/ML 1ML VIAL 12.5 MG IV ×4 (09:31→20:55)
[2023-03-12] MEDS: SODIUM CHLORIDE 0.9% 25ML BAG 25 ML IV ×4 (09:31→20:55)
[2023-03-12] MEDS: MAGIC MOUTHWASH 300ML BOTTLE 15 ML PO ×4 (09:31→20:56)
--- NOTE | 2023-03-12 09:45 | SW/DCPLANNER ---
Addendum entered by [facility] 03/16/23 11:07: Maryann w/ [facility] stated that services will begin this week for this patient. Addendum entered by [facility] 03/16/23 09:05: The plan for this patient is to return home w/ home health services. Patient is currently established w/ [facility]. I have updated Sondra shirley/ Dinesh Gan. Patient will discharge home today. Addendum entered by [facility] 03/13/23 11:45: Sondra Gan asked that nursing staff contact's her work phone if ready for discharge over the weekend: number has been provided to Akua LiuBre Addendum entered by [facility] 03/13/23 11:41: I spoke w/ patient this AM regarding plans at discharge. Patient is adamant that she return back home due to feeling better. Patient's daughter contacted me this AM regarding family wanting to speak w/ patient today and encourage placement. If patient decides to discharge to [facility] Sondra Gan is able to accept over the weekend. CORRECTION: daughter Mendy) phone number: [phone] Addendum entered by [facility] 03/12/23 14:23: Sondra Gan stated that she can accept this patient once medically stable and has qualifying stay. Sondra also updated me that she can admit patient over the weekend. I have updated patient and her daughter. Addendum entered by [facility] 03/12/23 12:59: Sondra Gan will be onsite this afternoon to speak w/ patient. I spoke w/ patient's daughter (Ewa [phone]): she agrees w/ discharge plan to [facility] and will speak w/ patient. Original Note: I spoke w/ this patient regarding plans once medically stable for discharge. Patient stated that she resides at home w/ her and assist in caring for him at home. PT/OT evaluated patient and recommended SNF level of care at time of discharge. Patient expressed that if she has to go to placement she would prefer [facility]. Patient information will be faxed to Sondra Gan this AM. Patient also stated that if her daughter comes in from [place] she would prefer to return home w/ , assistance from daughter and home health services. Patient will speak w/ daughter this AM regarding discharge plans. I will follow up w/ patient and Sondra from [facility] once information is reviewed. Discharge date is unknown at this time.
--- NOTE | 2023-03-12 09:48 | HMH.OTEV ---
OT Inpatient Evaluation Rehab OT IP Evaluation Start: 03/12/23 08:56 Freq: ONCE Status: Active Protocol: Document 03/12/23 09:35 [facility] (Rec: 03/12/23 09:41 [facility] [id number]) Rehab OT IP Assessment Subjective History Pt oriented x 2 on arrival. Pt agreeable to engage in therapy evaluation. Pt admitted on 03/11/23. History and physical report: Patient is a 82-year-old female with past medical history of ACS status post stenting in January, LifeVest placement, hyperkalemia and CKD who presents emergency department for evaluation of weakness. Over the last 4 days patient has not ate anything, over the last 2 days patient has not drank anything, she has global weakness. She is still able to ambulate however decreased from her baseline. Due to weakness she presents here for continued evaluation. Per chart review patient had a cath on with a drug- eluting stent to the proximal LAD. This patient came in to see me on for weakness as well. Her workup at that time was remarkable for significant hypokalemia and hypomagnesemia with acute renal failure and patient was transported to [place]. Supposedly patient had a GI bleed at some point and was transferred to [place] for higher level of care. No other history from that standpoint is able to be obtained. There is associated nausea and intermittent nonbloody vomiting. Patient denies chest pain, shortness of breath, other acute complaints other than global weakness at this time. Subjective I just feel sick. Prior to being in the hospital , pt lived with her . Pt claims normally she is independent with all ADLs and IADLs. Pt claims she has a walker at home but does not have to use it normally. Pt also still drives every now and then . Objective Patient Orientation Person,Birthday Right Upper Extremity Gross ROM WFL Left Upper Extremity Gross ROM WFL Bed Mobility bed mobility-scooting,bed mobility - supine/sit Assist Level Contact Guard/Hand Hold Transfer Training Sit/Stand/Step Transfer Assist Level Minimal x 1 (25% assist) Chair Transfer Ability Minimal x 1 (25% assist) Chair Transfer Technique Stand Step Pivot Lower Body Dressing Ability Maximum Assistance Rehab OT IP prob,goals,plan Problems Date of Evaluation: 03/12/23 OT IP Problems Bed Mobility,Transfers,Balance ,Self care,Safety Rehab Potential Rehab Potential Good Equipment Needs Assistive Devices Rolling / Wheeled Walker Plan OT intervention Plan Bed Mobility,Transfers,Balance ,Self care,Safety,Therapeutic Exercise OT Plan Frequency BID Duration LOS Discharge Goals Bed Mobility Ability Standby Assistance Sit to Stand Chair Transfer Ability Contact Guard/Hand Hold Chair Transfer Ability Contact Guard/Hand Hold Chair Transfer Technique Sit to/from Ambulatory Chair Transfer Assistive Devices Rolling Walker Feeding Ability Assist with Tray Set Up Lower Body Dressing Ability Minimal Assistance Upper Body Dressing Ability Standby Assistance Bathing Ability Moderate Assistance Performing Toilet Hygiene Ability Minimal Assistance Overall Commode/Toilet Transfer Ability Minimal Assistance Commode/Toilet Transfer Technique Sit to/from Ambulatory Commode/Toilet Transfer Assistive Raised Toilet Seat,Grab Bars Devices Oral Care Assist Standby Assistance Decrease in Endurance Yes Discharge Plan OT Discharge Plan Pt will continue to be seen for OT services while at [facility]. At this time, pt would benefit most from short term rehab at SNF. Continued skilled therapy is important for patient to improve strength, safety, endurance, ADL independence, and functional transfers to reach PLOF. If patient improves while at [facility] she could possibly return home with family assist and HHOT evaluation. Eval Complexity Eval Charge Codes 58096 - Moderate Complexity PHYSICIAN CERTIFICATION: I certify the specified therapy services for Barbara Najera are required, authorized, and reviewed every 30 days.
--- NOTE | 2023-03-12 10:00 | HMH.PTEV ---
Physical Therapy Evaluation Rehab PT IP Evaluation Start: 03/12/23 08:56 Freq: ONCE Status: Active Protocol: Document 03/12/23 09:56 [facility] (Rec: 03/12/23 10:00 [facility] [id number]) Subjective/History History History 82 yowf adm to [facility] with UTI. She has PMH of CKD, CAD, CHF, HLD, HTN, presents wearing LifeVest. She reports she lives with her , no steps to enter the home, and she is generally independent with all mobility using a RW. Subjective Subjective I'm just really sick to my stomach right now. Pt agrees to mobility assessment. New diagnosis of cancer in past 12 No months? Rehab PT IP Eval Objective Appearance Patient Behavior Appropriate Patient Orientation Person,Place,Time Difficulty following instructions none Speech Pattern Clear Ambulation Patient Able to Ambulate No Balance Ability to Arise Able, uses arms to help Sitting Balance Steady, safe Standing Balance Unsteady Dynamic Sitting Balance Ability Good Dynamic Standing Balance Ability Poor Transfers Bed Transfer Ability Minimal x 1 (25% assist) Chair Transfer Ability Minimal x 2 (25% assist) Sit to Stand Bed Transfer Ability Minimal x 2 (25% assist) Sit to Stand Chair Transfer Ability Minimal x 2 (25% assist) Rehab PT IP prob,goals,plan Problems Date of Evaluation: 03/12/23 PT IP Problems Bed Mobility,Transfers,Gait Rehab Potential Rehab Potential Good Plan PT Intervention Plan Bed Mobility,Transfers,Gait, Therapeutic Exercise PT Plan Frequency Daily Duration LOS Discharge Goals Bed Transfer Ability Contact Guard/Hand Hold Sit to Stand Chair Transfer Ability Minimal x 1 (25% assist) Ambulation Assistive Device Rolling Walker Ambulation Distance (feet) 20 Discharge Plan PT Discharge Plan Pt is currently most appropriate for rehab placement once medically stable for d/c. Skilled therapy is needed to further prevent debility, injuries, falls, and wounds. Eval Complexity Eval Charge Codes 07480 - High Complexity PHYSICIAN CERTIFICATION: I certify the specified therapy services for Barbara Najera are required, authorized, and reviewed every 30 days.
[2023-03-12 16:00] VITALS: BP 149/81; PULSE 108; RESP 19; TEMP 36.7; O2SAT 96
[2023-03-12] MEDS: CEFTRIAXONE SODIUM 1 GM in 0.9 % SODIUM CHLORIDE 50 ML IV (16:08)
--- NOTE | 2023-03-12 18:58 | PC.NURSE ---
Addendum entered by Ana Gillette RN 03/12/23 18:59: this event took place at 1500 Original Note: VS stable, patient remiane don room air. Patient complained of restless leg syndome, karol notified and said patient could take reqiup now but would not be able to take pm dose
--- NOTE | 2023-03-12 19:00 | PC.NURSE ---
Patient complained of arm her arm feeling funny and jumpy. Arm is feels numb but cap refill less than [address] Linda paged.
--- NOTE | 2023-03-12 19:10 | PC.NURSE ---
Claribel Linad notified of patient's arm. Tylenol ordered as well as tramadol reordered.
[2023-03-12 20:00] VITALS: BP 132/70; PULSE 105; RESP 18; TEMP 36.7; O2SAT 99
[2023-03-12] MEDS: MELATONIN 5MG TABLET 5 MG PO (20:53)
[2023-03-12] MEDS: ACETAMINOPHEN 325MG TAB 650 MG PO (20:54)
[2023-03-12] MEDS: ATORVASTATIN 40MG TABLET 40 MG PO (20:54)
[2023-03-12] MEDS: ROPINIROLE HCL 0.25 MG TABLET 0.5 MG PO (20:55)
[2023-03-13] MEDS: TRAMADOL 50MG TABLET 50 MG PO (03:37)
[2023-03-13 04:00] VITALS: BP 147/62; PULSE 80; RESP 18; TEMP 36.6; O2SAT 95; BMI 23.3
--- NOTE | 2023-03-13 05:06 | PC.NURSE ---
Patient has had a decent night. Has been restless though the night but did get some sleep off and on. Patient has had some arm pain. see MAR. pain is under control with medication. life vest remains on. no other issues noted
[2023-03-13] MEDS: PROMETHAZINE HCL 25MG/ML 1ML VIAL 12.5 MG IV (06:14)
[2023-03-13] MEDS: SODIUM CHLORIDE 0.9% 25ML BAG 25 ML IV (06:14)
[2023-03-13 08:00] VITALS: BP 144/55; PULSE 77; RESP 17; TEMP 36.3; O2SAT 96; O2SAT 98
[2023-03-13 08:49] LABS: Basophils % 0.3 % (0.1-2.0); Eosinophils # 0.1 K/mm3 (0.0-0.4); Eosinophils % 1.1 % (0.1-12.0); Hematocrit 27.5 % (37.0-47.0); Hemoglobin 9.9 g/dL (12.2-16.2); Lymphocytes # 1.2 K/mm3 (0.7-4.5); Lymphocytes % 13.9 % (10-50); Mean Corpuscular HGB Conc 36.1 g/dL (31.8-35.4); Mean Corpuscular Volume 91.5 fl (81-99); Mean Platelet Volume 8.9 fl (7.4-10.4); Monocytes # 0.4 K/mm3 (0.1-1.0); Monocytes % 4.9 % (1.7-9.3); Neutrophils % 79.8 % (37.0-80.0); Platelet Count 222 K/mm3 (142-424); Red Cell Distribution Width 15.4 % (11.5-17.5); White Blood Count 8.8 K/mm3 (4.8-10.8)
--- NOTE | 2023-03-13 08:52 | EXP.ACUTE.PN ---
Subjective *Date: 03/13/23 *Time: 08:59 Interval history: Patient is feeling terrible today. She has had vomiting and diarrhea throughout the night. Her mouth is painful. Medical Exam Vital signs and Labs for Last 24 Hours: Vital Signs Temp Pulse Resp BP Pulse Ox O2 Del Method 03/13/23 08:00 97.4 F L 77 17 144/55 H 96 Room Air 03/13/23 06:47 Room Air 03/13/23 05:00 Room Air 03/13/23 04:00 97.9 F 80 18 147/62 H 95 Room Air 03/13/23 03:00 Room Air 03/13/23 01:00 Room Air 03/12/23 23:00 Room Air 03/12/23 21:00 Room Air 03/12/23 20:00 Room Air 03/12/23 20:00 98.0 F 105 H 18 132/70 99 Room Air 03/12/23 18:50 Room Air 03/12/23 17:00 Room Air 03/12/23 16:00 98.1 F 108 H 19 149/81 H 96 Room Air 03/12/23 15:05 Room Air 03/12/23 13:00 Room Air 03/12/23 10:55 Room Air 03/12/23 09:31 Room Air Intake and Output 03/12/23 03/13/23 03/13/23 19:59 03:59 11:59 Intake Total 1490 / 1925 75 / 1925 360 / 1925 Output Total 1050 / 1575 525 / 1575 Balance 440 / 350 75 / 350 -165 / 350 Intake: Intake, Oral Amount 950 / 1385 75 / 1385 360 / 1385 Intake, Total IV Amount 540 / 540 0.9 % Sodium Chloride 1000ML 1, 490 / 490 000 ml @ 75 mls/hr IV .[id number] [facility] Rx#:[id number] Ceftriaxone Sodium 1 gm In 0.9 50 / 50 % Sodium Chloride 50 ml @ 100 mls/hr IV ONCE ONE Rx#:[id number] Output: Output, Urine Amount 1050 / 1575 525 / 1575 Other: Number of Voids 0 Number of Unmeasured Voids 0 Number of Bowel Movements 1 1 Weight 140 lb Patient Weight 03/13/23 11:59 Weight 140 lb I & O for Labs for Last 24 Hours: Intake & Output 0103/11/23 03/12/23 03/13/23 11:59 11:59 11:59 11:59 Intake Total 1079.5 / 1079.5 1925 / 1925 Output Total 750 / 750 1575 / 1575 Balance 329.5 / 329.5 350 / 350 Weight 139 lb 4 oz 140 lb Constitutional: Present no acute distress ENT: Present mucous membranes dry (stomatitis) Respiratory: Present CTA bilaterally Cardiac: Present Reg Rate and Rhythm GI: Present soft; Absent distention, tenderness or normal bowel sounds Extremities: Absent edema Neuro: Present alert and awake Assessment and Plan *Assessment and plan (1) YAMEL (acute kidney injury): Status: Acute Category: Medical Code(s): N17.9 - Acute kidney failure, unspecified (2) Acute hyperkalemia: Status: Acute Category: Medical Code(s): E87.5 - Hyperkalemia (3) Weakness: Status: Acute Category: Medical Code(s): R53.1 - Weakness (4) Hypovolemia: Status: Acute Category: Medical Code(s): E86.1 - Hypovolemia (5) Acute UTI: Status: Acute Category: Medical Code(s): N39.0 - Urinary tract infection, site not specified (6) Stomatitis: Status: Acute Category: Medical Code(s): K12.1 - Other forms of stomatitis (7) Elevated troponin: Status: Acute Category: Medical Code(s): R79.89 - Other specified abnormal findings of blood chemistry (8) Coronary artery disease: Status: Acute Qualifiers: Associated angina: without angina Coronary Disease-Associated Artery/Lesion type: [place] artery [place] vs. transplanted heart: [place] heart Qualified Code(s): I25.10 - Atherosclerotic heart disease of [place] coronary artery without angina pectoris Category: Medical Code(s): I25.10 - Atherosclerotic heart disease of [place] coronary artery without angina pectoris (9) Cardiomyopathy: Status: Acute Category: Medical Code(s): I42.9 - Cardiomyopathy, unspecified (10) HTN (hypertension): Status: Acute Qualifiers: Hypertension type: unspecified Qualified Code(s): I10 - Essential (primary) hypertension Category: Medical Code(s): I10 - Essential (primary) hypertension (11) Hyperlipidemia: Status: Acute Qualifiers: Hyperlipidemia type: mixed hyperlipidemia Qualified Code(s): E78.2 - Mixed hyperlipidemia Category: Medical Code(s): E78.5 - Hyperlipidemia, unspecified Plan Will continue hydration and keep on a clear liquid diet. Will add an antiviral for her stomatitis as the magic mouthwash does not seem to be helping. WBC has improved. Will continue abx and await urine culture results. Will check a magnesium level as well. Dr. Linda entry - Saw patient, agree with above note.
[2023-03-13 08:54] LABS: Chloride 109 mmol/L (98-107); Potassium 3.6 mmoL/L (3.5-5.1); Sodium 140 mmol/L (136-145)
[2023-03-13 08:57] LABS: Alanine Aminotransferase 11 U/L (12-78); Albumin Level 2.6 g/dl (3.5-5.0); Albumin/Globulin Ratio 0.8 (1.1-1.8); Alkaline Phosphatase 111 U/L (38-126); Anion Gap 8.6 mEq/L (5-15); Aspartate Amino Transferase 23 U/L (14-36); Bilirubin,Total 0.5 mg/dl (0.2-1.3); Blood Urea Nitrogen 36 mg/dl (7-17); Calcium 8.1 mg/dl (8.4-10.2); Carbon Dioxide 26 mmol/L (22.0-30.0); Creatinine Clearance Estimated 27 mL/min (50-200); Estimated Glomerular Filt Rate 31 ml/min (>60); GFR (African American) 37 ML/MIN (>60); Globulin 3.1 g/dL (1.3-3.2); Glucose 90 mg/dl (74-100); Total Protein,Serum 5.7 g/dl (6.3-8.2)
[2023-03-13 09:09] LABS: Magnesium 2.1 mg/dl (1.6-2.3)
[2023-03-13] MEDS: MAGIC MOUTHWASH 300ML BOTTLE 15 ML PO ×3 (10:00→20:44)
[2023-03-13] MEDS: CEFTRIAXONE SODIUM 1 GM in 0.9 % SODIUM CHLORIDE 50 ML IV (10:00)
[2023-03-13] MEDS: SODIUM CHLORIDE 0.9% IV ×2 (11:30→20:44)
[2023-03-13] MEDS: ACYCLOVIR SODIUM IV ×2 (11:30→20:44)
[2023-03-13 12:19] VITALS: BMI 23.3
[2023-03-13 16:00] VITALS: BP 124/58; PULSE 80; RESP 17; TEMP 36.6; O2SAT 97
--- NOTE | 2023-03-13 16:10 | PC.NURSE ---
pt has been AxO x4 this shift. order for collier catheter was placed this morning and collier catheter was removed. pt has a consult for gynecology d/t suspected prolapsed bladder. pt stated that she has never had this issue. pt has been resting in bed today. PT got pt up to use restroom previously in shift. pt has beeen requesting mouth swabs throughout shift for her mouth pain. see MAR for ordered meds
--- NOTE | 2023-03-13 16:58 | PC.NURSE ---
pt has been AxO x4 this shift. order for collier catheter was placed this morning and collier catheter was removed. pt has a consult for gynecology d/t suspected prolapsed bladder. pt stated that she has had this issue for quite some time . pt has been resting in bed today. PT got pt up to use restroom previously in shift. pt has beeen requesting mouth swabs throughout shift for her mouth pain. see MAR for ordered meds.
[2023-03-13] MEDS: 0.9 % SODIUM CHLORIDE 1000ML 1,000 ML 75 ML IV (17:48)
--- NOTE | 2023-03-13 18:08 | PC.NURSE ---
Dr. Yao came to floor to visit pt for suspected bladder prolapse. confirmed bladder prolapse and ordered cream (see MAR). reinserted pt bladder.
[2023-03-13 19:44] VITALS: BP 146/62; PULSE 80; RESP 18; TEMP 36.9; O2SAT 95
[2023-03-13] MEDS: ATORVASTATIN 40MG TABLET 40 MG PO (20:44)
[2023-03-13] MEDS: CONJUGATED ESTROGENS 0.625MG/GM 30GM APPLICATOR VG (21:15)
--- NOTE | 2023-03-13 22:01 | EXP.GYNCONS ---
History of Present Illness *Admission Date: 03/12/23 *Reason for visit:: weakness *History of present illness: Barbara Najera is an 82-year-old G1, P1 who was consulted on for bladder prolapse. Upon discussion with the patient she reports that she had a hysterectomy years ago. She is unsure what this is for but thinks that it was secondary to a cyst. The patient denies any bowel or bladder concerns or complaints. She denies specifically any constipation, diarrhea, leakage of urine, urinary retention or difficulty voiding, dysuria, or hematuria. Patient reports that she lives at home with her , feels safe in all of her environments, and is not sexually active. Patient states that it has been several years since a gynecologic evaluation. Per nursing/chart review the patient has an YAMEL and recurrent, chronic urinary tract infections. Please see HPI for full past medical history. [facility] Disclaimer: The information contained in this section may have been updated after the patient was seen, as this information can be updated by other users. Medical History (Updated 03/14/23 @ 07:05 by Darline Yao DO) ASCVD (arteriosclerotic cardiovascular disease) CHF (congestive heart failure) History of left heart catheterization HLD (hyperlipidemia) Hypertension Ischemic cardiomyopathy NSTEMI (non-ST elevated myocardial infarction) Surgical History (Updated 03/12/23 @ 09:59 by GRACIE Freed) History of cardiac cath S/P partial hysterectomy Family History Other No significant family history Social History (Updated 03/11/23 @ 21:12 by Marquis Salmon RN) Smoking Status: Never smoker alcohol intake: never current occupational status: retired Travel in the last 8 weeks: None Review of Systems Constitutional Constitutional: Reports fatigue, Denies headache(s) and Reports weakness Eyes Eyes: Denies blurry vision and Denies diplopia ENT Ears, Nose, Mouth, and Throat: Denies headache(s) and Denies vertigo *Cardiovascular Cardiovascular: Denies chest pain and Denies dyspnea *Respiratory Respiratory: Denies cough and Denies dyspnea *Gastrointestinal Gastrointestinal: Denies abdominal pain, Reports constipation, Denies diarrhea, Reports nausea and Denies vomiting *Genitourinary Genitourinary: Denies difficulty voiding and Denies dysuria *Musculoskeletal Musculoskeletal: Reports atrophy and Reports muscle weakness *Neurologic Neurologic: Denies headache(s), Denies vertigo and Reports weakness Endocrine Endocrine: Reports fatigue Meds Home Medications and Allergies Home Medications Medication Instructions Recorded Confirmed Type amlodipine 5 mg tablet 5 mg PO DAILY 03/11/23 03/11/23 History aspirin 81 mg chewable tablet 81 mg PO DAILY 03/11/23 03/11/23 History atorvastatin 40 mg tablet 40 mg PO HS 03/11/23 03/11/23 History carvedilol 3.125 mg tablet 3.125 mg PO BID 03/11/23 03/11/23 History clopidogrel 75 mg tablet 75 mg PO DAILY 03/11/23 03/11/23 History empagliflozin 10 mg tablet 10 mg PO DAILY 03/11/23 03/11/23 History (Jardiance) furosemide 40 mg tablet 40 mg PO DAILY 03/11/23 03/11/23 History potassium chloride 20 mEq 20 meq PO BID 03/11/23 03/11/23 History tablet,extended release(part/cryst) ropinirole 0.5 mg tablet 0.5 mg PO HS 03/11/23 03/11/23 History sacubitril 24 mg-valsartan 26 mg 1 tab PO BID 03/11/23 03/11/23 History tablet (Entresto) spironolactone 25 mg tablet 25 mg PO DAILY 03/11/23 03/11/23 History tramadol 50 mg tablet 50 mg PO QID PRN Pain 03/11/23 03/12/23 History ondansetron 4 mg disintegrating 4 mg translingual Q8H PRN Nausea 03/12/23 03/12/23 History tablet And Vomiting scopolamine base 1 mg over 3 days 1 patch transdermal .EVERY 3 DAYS 03/12/23 03/12/23 History transdermal patch PRN Nausea New Prescriptions to Start Prescriptions: Allergies Allergy/AdvReac Type Severity Reaction Status Date / Time Penicillins Allergy Verified 02/12/23 11:56 Sulfa (Sulfonamide Allergy Verified 02/12/23 11:56 Antibiotics) triprolidine Allergy Verified 02/12/23 11:56 Exam (Inpt) Vital signs and Labs for Last 24 Hours: Temp Pulse Resp BP Pulse Ox O2 Del Method 98.4 F 80 18 146/62 H 95 Room Air 03/13/23 19:44 03/13/23 19:44 03/13/23 19:44 03/13/23 19:44 03/13/23 19:44 03/13/23 21:00 Laboratory Results - last 24 hr 03/13/23 08:40: WBC 8.8 D, RBC 3.00 L D, Hgb 9.9 L, Hct 27.5 L, MCV 91.5, MCH 33.0 H, MCHC 36.1 H, RDW 15.4, Plt Count 222 D, MPV 8.9, Neut % (Auto) 79.8, Lymph % (Auto) 13.9, [place] % (Auto) 4.9, Eos % (Auto) 1.1, Baso % (Auto) 0.3, Neut # (Auto) 7.0, Lymph # (Auto) 1.2, [place] # (Auto) 0.4, Eos # (Auto) 0.1, Baso # (Auto) 0.0, Sodium 140, Potassium 3.6 D, Chloride 109 H, Carbon Dioxide 26, Anion Gap 8.6, BUN 36 H D, Creatinine 1.60 H D, Estimated Creat Clear 27, Estimated GFR 31 L, Est GFR ( Amer) 37 L D, Glucose 90, Calcium 8.1 L, Magnesium 2.1, Total Bilirubin 0.5, AST 23, ALT 11 L D, Alkaline Phosphatase 111, Total Protein 5.7 L D, Albumin 2.6 L, Globulin 3.1, Albumin/Globulin Ratio 0.8 L I & O for Labs for Last 24 Hours: Intake & Output 03/10/23 03/11/23 03/12/23 03/13/23 23:59 23:59 23:59 23:59 Intake Total 2569.5 / 2644.5 1215 / 1215 Output Total 550 / 750 1250 / 1250 525 / 525 Balance -550 / -112.5 1319.5 / 1394.5 690 / 690 Weight 137 lb 9 oz 139 lb 4 oz 139 lb 15.896 oz : Present normal urethra appearance; Absent tenderness Comments:: complete grade 4 anterior prolapse. difficult to complete a full exam in the hospital bed Extremities: Present normal inspection; Absent tenderness Skin: Present intact and dry; Absent cyanosis, erythema, pallor, mottling or petechiae Comment:: large bruise on the abdomen Assessment and Plan *Assessment and plan (1) YAMEL (acute kidney injury): Status: Acute Category: Medical Code(s): N17.9 - Acute kidney failure, unspecified (2) Acute UTI: Status: Acute Category: Medical Code(s): N39.0 - Urinary tract infection, site not specified (3) Prolapse of anterior vaginal wall: Status: Acute Category: Medical Code(s): N81.10 - Cystocele, unspecified Plan #Anterior vaginal wall prolapse -Reduced at bedside. Counseled pt and RN that this would likely happen again and patient will need to be seen in the office to be fitted for a pessary or consented for a colpocleisis. -No history of endometrial cancer. Will start estradiol/ Premarin cream as the anterior vaginal wall was starting to develop ulcerations. -Please schedule pt to be seen in the office on thursday or thursday. Thank you for involving me in the care of this patient. I will continue to follow up in the office.
[2023-03-14] MEDS: TRAMADOL 50MG TABLET 50 MG PO ×2 (00:52→20:45)
[2023-03-14] MEDS: MELATONIN 5MG TABLET 5 MG PO ×2 (00:52→20:46)
[2023-03-14] MEDS: ROPINIROLE 1MG TABLET 0.5 MG PO ×2 (00:52→20:46)
[2023-03-14] MEDS: PROMETHAZINE HCL 25MG/ML 1ML VIAL 12.5 MG IV ×2 (03:28→20:42)
[2023-03-14] MEDS: SODIUM CHLORIDE 0.9% 25ML BAG 25 ML IV ×2 (03:28→20:43)
[2023-03-14 04:00] VITALS: BP 127/62; PULSE 82; RESP 17; TEMP 37.1; O2SAT 92; BMI 23.5
[2023-03-14] MEDS: ACETAMINOPHEN 325MG TAB 650 MG PO (04:41)
[2023-03-14 07:20] VITALS: BP 157/73; PULSE 77; RESP 18; TEMP 36.7; O2SAT 96
[2023-03-14] MEDS: CEFTRIAXONE SODIUM 1 GM in 0.9 % SODIUM CHLORIDE 50 ML IV (08:07)
[2023-03-14] MEDS: ONDANSETRON 4MG/2ML VIAL 4 MG IV (08:15)
[2023-03-14] MEDS: SODIUM CHLORIDE 0.9% IV ×2 (09:12→20:45)
[2023-03-14] MEDS: ACYCLOVIR SODIUM IV ×2 (09:12→20:45)
[2023-03-14] MEDS: 0.9 % SODIUM CHLORIDE 1000ML 1,000 ML 75 ML IV (09:12)
[2023-03-14] MEDS: CONJUGATED ESTROGENS 0.625MG/GM 30GM APPLICATOR VG ×2 (09:12→20:46)
[2023-03-14] MEDS: MAGIC MOUTHWASH 300ML BOTTLE 15 ML PO ×3 (09:13→20:46)
--- NOTE | 2023-03-14 09:34 | P.PN_ITS ---
Subjective *Date: 03/14/23 *Time: 09:34 Interval history: Patient had bladder prolapse after collier catheter was removed, Account Resolution Expert consulted and saw patient. Patient is anxious to go home. Medical Exam Vital signs and Labs for Last 24 Hours: Vital Signs Temp Pulse Resp BP Pulse Ox O2 Del Method 03/14/23 07:20 98.0 F 77 18 157/73 H 96 Room Air 03/14/23 06:47 Room Air 03/14/23 05:00 Room Air 03/14/23 04:00 98.7 F 82 17 127/62 92 L Room Air 03/14/23 03:00 Room Air 03/14/23 01:00 Room Air 03/13/23 23:00 Room Air 03/13/23 21:00 Room Air 03/13/23 20:00 Room Air 03/13/23 19:44 98.4 F 80 18 146/62 H 95 Room Air 03/13/23 19:00 Room Air 03/13/23 16:46 Room Air 03/13/23 16:00 97.8 F 80 17 124/58 L 97 Room Air 03/13/23 15:00 Room Air 03/13/23 13:00 Room Air 03/13/23 11:00 Room Air Intake and Output 03/13/23 03/14/23 03/14/23 23:59 07:59 15:59 Intake Total 360 / 1215 1090 / 1090 Output Total 0 / 775 850 / 850 Balance 360 / 440 240 / 240 Intake: Intake, Oral Amount 360 / 1215 240 / 240 Intake, Total IV Amount 850 / 850 0.9 % Sodium Chloride 1000ML 1, 600 / 600 000 ml @ 75 mls/hr IV .[id number] [facility] Rx#:[id number] Acyclovir Sodium 300 mg In 0.9 250 / 250 % Sodium Chloride 250 ml @ 250 mls/hr IV Q12H [facility] Rx#:[id number] Output: Output, Urine Amount 0 / 775 850 / 850 Other: Number of Voids 0 Number of Unmeasured Voids 0 Number of Bowel Movements 1 1 Weight 141 lb Patient Weight 03/14/23 23:59 Weight 141 lb I & O for Labs for Last 24 Hours: Intake & Output 03/11/23 03/12/23 03/13/23 03/14/23 23:59 23:59 23:59 23:59 Intake Total 2569.5 / 2644.5 1215 / 1215 1090 / 1090 Output Total 550 / 750 1250 / 1250 525 / 775 850 / 850 Balance -550 / -112.5 1319.5 / 1394.5 690 / 440 240 / 240 Weight 137 lb 9 oz 139 lb 4 oz 139 lb 15.896 oz 141 lb Microbiology Reports for the Last 24 Hours: Microbiology 03/11/23 17:23 Urine,Catheterized Urine Culture - Final 03/11/23 14:25 Blood Blood Culture - Preliminary 03/11/23 15:04 Blood Blood Culture - Preliminary Constitutional: Present no acute distress ENT: Present mucous membranes dry (stomatitis) Respiratory: Present CTA bilaterally Cardiac: Present Reg Rate and Rhythm GI: Present soft; Absent distention, tenderness or normal bowel sounds Extremities: Absent edema Neuro: Present alert and awake Assessment and Plan *Assessment and plan (1) YAMEL (acute kidney injury): Status: Acute Category: Medical Code(s): N17.9 - Acute kidney failure, unspecified (2) Acute UTI: Status: Acute Category: Medical Code(s): N39.0 - Urinary tract infection, site not specified (3) Prolapse of anterior vaginal wall: Status: Acute Category: Medical Code(s): N81.10 - Cystocele, unspecified (4) Hypovolemia: Status: Acute Category: Medical Code(s): E86.1 - Hypovolemia (5) Stomatitis: Status: Acute Category: Medical Code(s): K12.1 - Other forms of stomatitis (6) Elevated troponin: Status: Acute Category: Medical Code(s): R79.89 - Other specified abnormal findings of blood chemistry (7) Coronary artery disease: Status: Acute Qualifiers: Coronary Disease-Associated Artery/Lesion type: [place] artery [place] vs. transplanted heart: [place] heart Associated angina: without angina Qualified Code(s): I25.10 - Atherosclerotic heart disease of [place] coronary artery without angina pectoris Category: Medical Code(s): I25.10 - Atherosclerotic heart disease of [place] coronary artery without angina pectoris (8) Cardiomyopathy: Status: Acute Category: Medical Code(s): I42.9 - Cardiomyopathy, unspecified (9) HTN (hypertension): Status: Acute Qualifiers: Hypertension type: unspecified Qualified Code(s): I10 - Essential (primary) hypertension Category: Medical Code(s): I10 - Essential (primary) hypertension (10) Hyperlipidemia: Status: Acute Qualifiers: Hyperlipidemia type: mixed hyperlipidemia Qualified Code(s): E78.2 - Mixed hyperlipidemia Category: Medical Code(s): E78.5 - Hyperlipidemia, unspecified Plan Account Resolution Expert note reviewed, H/H drop noted, renal function has improved with IVF hydration. Acyclovir started yesterday, will recheck labs tomorrow.
[2023-03-14 15:16] VITALS: BP 152/67; PULSE 72; RESP 18; TEMP 36.5; O2SAT 96
--- NOTE | 2023-03-14 18:54 | PC.NURSE ---
patient a&ox4. Patient vss and patient has no c/o pain or nausea. Patient's bladder prolapsed and Dr. Yao notified. Dr. Yao came to patient's room to reinsert bladder.
[2023-03-14 20:00] VITALS: BP 152/69; PULSE 75; RESP 16; TEMP 36.6; O2SAT 92
[2023-03-14] MEDS: ATORVASTATIN 40MG TABLET 40 MG PO (20:45)
[2023-03-15] MEDS: 0.9 % SODIUM CHLORIDE 1000ML 1,000 ML 75 ML IV (02:53)
[2023-03-15 04:00] VITALS: BP 134/69; PULSE 120; RESP 19; TEMP 36.7; O2SAT 96; BMI 35.1
--- NOTE | 2023-03-15 05:45 | PC.NURSE ---
Patient has rested well through the night. Has not complained of pain. Did want nausea medication to take her pills last night. tolerated that well. Patient was incontinent tonight with a BM and a void. No other issues through the shift
[2023-03-15 07:41] VITALS: BP 159/63; PULSE 74; RESP 17; TEMP 36.4; O2SAT 98
[2023-03-15 08:55] LABS: Basophils % 0.4 % (0.1-2.0); Eosinophils # 0.1 K/mm3 (0.0-0.4); Eosinophils % 1.7 % (0.1-12.0); Hemoglobin 10.3 g/dL (12.2-16.2); Lymphocytes # 1.4 K/mm3 (0.7-4.5); Lymphocytes % 17.5 % (10-50); Mean Corpuscular HGB Conc 32.3 g/dL (31.8-35.4); Mean Corpuscular Hemoglobin 29.9 pg (27.0-31.2); Mean Corpuscular Volume 92.6 fl (81-99); Mean Platelet Volume 7.8 fl (7.4-10.4); Monocytes # 0.4 K/mm3 (0.1-1.0); Monocytes % 4.7 % (1.7-9.3); Neutrophils # 5.9 K/mm3 (1.8-7.8); Neutrophils % 75.6 % (37.0-80.0); Platelet Count 216 K/mm3 (142-424); Red Blood Count 3.45 M/mm3 (4.20-5.40); Red Cell Distribution Width 15.1 % (11.5-17.5); White Blood Count 7.7 K/mm3 (4.8-10.8)
[2023-03-15 09:18] LABS: Anion Gap 12.4 mEq/L (5-15); Blood Urea Nitrogen 14 mg/dl (7-17); Calcium 7.6 mg/dl (8.4-10.2); Carbon Dioxide 23 mmol/L (22.0-30.0); Chloride 111 mmol/L (98-107); Creatinine Clearance Estimated 65 mL/min (50-200); Estimated Glomerular Filt Rate 53 ml/min (>60); GFR (African American) 64 ML/MIN (>60); Glucose 52 mg/dl (74-100); Potassium 3.4 mmoL/L (3.5-5.1); Sodium 143 mmol/L (136-145)
[2023-03-15] MEDS: MAGIC MOUTHWASH 300ML BOTTLE 15 ML PO ×3 (09:49→20:43)
[2023-03-15] MEDS: CONJUGATED ESTROGENS 0.625MG/GM 30GM APPLICATOR VG ×2 (09:50→20:43)
[2023-03-15] MEDS: CEFTRIAXONE SODIUM 1 GM in 0.9 % SODIUM CHLORIDE 50 ML IV (09:50)
--- NOTE | 2023-03-15 10:34 | EXP.ACUTE.PN ---
Subjective *Date: 03/15/23 *Time: 10:34 Interval history: Patient reports mouth pain has improved, she is tolerating clear liquids, anxious to go home. Medical Exam Vital signs and Labs for Last 24 Hours: Vital Signs Temp Pulse Resp BP Pulse Ox O2 Del Method 03/15/23 07:41 97.6 F 74 17 159/63 H 98 Room Air 03/15/23 06:53 Room Air 03/15/23 05:00 Room Air 03/15/23 04:00 98.1 F 120 H 19 134/69 96 03/15/23 03:00 Room Air 03/15/23 01:00 Room Air 03/14/23 23:00 Room Air 03/14/23 21:00 Room Air 03/14/23 20:00 Room Air 03/14/23 20:00 97.9 F 75 16 152/69 H 92 L 03/14/23 15:16 97.7 F 72 18 152/67 H 96 Room Air Intake and Output 03/14/23 03/15/23 03/15/23 23:59 07:59 15:59 Intake Total 240 / 1820 490 / 490 Output Total 400 / 1850 Balance -160 / -30 490 / 490 Intake: Intake, Oral Amount 240 / 720 240 / 240 Intake, Total IV Amount 250 / 250 Acyclovir Sodium 300 mg In 0.9 250 / 250 % Sodium Chloride 250 ml @ 250 mls/hr IV Q12H [facility] Rx#:[id number] Output: Output, Urine Amount 400 / 1850 Other: Number of Unmeasured Voids 0 1 Number of Bowel Movements 1 Weight 210 lb 9.6 oz Patient Weight 03/15/23 23:59 Weight 210 lb 9.6 oz Laboratory Results - last 24 hr 03/15/23 07:47: WBC 7.7, RBC 3.45 L, Hgb 10.3 L, Hct 32.0 L, MCV 92.6, MCH 29.9, MCHC 32.3, RDW 15.1, Plt Count 216, MPV 7.8, Neut % (Auto) 75.6, Lymph % (Auto) 17.5, [place] % (Auto) 4.7, Eos % (Auto) 1.7, Baso % (Auto) 0.4, Neut # (Auto) 5.9, Lymph # (Auto) 1.4, [place] # (Auto) 0.4, Eos # (Auto) 0.1, Baso # (Auto) 0.0, Sodium 143, Potassium 3.4 L, Chloride 111 H, Carbon Dioxide 23, Anion Gap 12.4, BUN 14 D, Creatinine 1.00 D, Estimated Creat Clear 65, Estimated GFR 53 L, Est GFR ( Amer) 64 D, Glucose 52 L, Calcium 7.6 L I & O for Labs for Last 24 Hours: Intake & Output 03/12/23 03/13/23 03/14/23 03/15/23 23:59 23:59 23:59 23:59 Intake Total 2569.5 / 2644.5 1215 / 1215 1570 / 1820 490 / 490 Output Total 1250 / 1250 525 / 775 1850 / 1850 Balance 1319.5 / 1394.5 690 / 440 -280 / -30 490 / 490 Weight 139 lb 4 oz 139 lb 15.896 oz 141 lb 210 lb 9.6 oz Microbiology Reports for the Last 24 Hours: Microbiology 03/11/23 15:04 Blood Blood Culture - Preliminary 03/11/23 14:25 Blood Blood Culture - Preliminary 03/11/23 17:23 Urine,Catheterized Urine Culture - Final Constitutional: Present no acute distress ENT: Present mucous membranes dry (stomatitis, improved today) Respiratory: Present CTA bilaterally Cardiac: Present Reg Rate and Rhythm GI: Present soft; Absent distention, tenderness or normal bowel sounds Extremities: Absent edema Neuro: Present alert and awake Assessment and Plan *Assessment and plan (1) YAMEL (acute kidney injury): Status: Acute Category: Medical Code(s): N17.9 - Acute kidney failure, unspecified (2) Acute UTI: Status: Acute Category: Medical Code(s): N39.0 - Urinary tract infection, site not specified (3) Prolapse of anterior vaginal wall: Status: Acute Category: Medical Code(s): N81.10 - Cystocele, unspecified (4) Hypovolemia: Status: Acute Category: Medical Code(s): E86.1 - Hypovolemia (5) Stomatitis: Status: Acute Category: Medical Code(s): K12.1 - Other forms of stomatitis (6) Elevated troponin: Status: Acute Category: Medical Code(s): R79.89 - Other specified abnormal findings of blood chemistry (7) Coronary artery disease: Status: Acute Qualifiers: Coronary Disease-Associated Artery/Lesion type: [place] artery [place] vs. transplanted heart: [place] heart Associated angina: without angina Qualified Code(s): I25.10 - Atherosclerotic heart disease of [place] coronary artery without angina pectoris Category: Medical Code(s): I25.10 - Atherosclerotic heart disease of [place] coronary artery without angina pectoris (8) Cardiomyopathy: Status: Acute Category: Medical Code(s): I42.9 - Cardiomyopathy, unspecified (9) HTN (hypertension): Status: Acute Qualifiers: Hypertension type: unspecified Qualified Code(s): I10 - Essential (primary) hypertension Category: Medical Code(s): I10 - Essential (primary) hypertension (10) Hyperlipidemia: Status: Acute Qualifiers: Hyperlipidemia type: mixed hyperlipidemia Qualified Code(s): E78.2 - Mixed hyperlipidemia Category: Medical Code(s): E78.5 - Hyperlipidemia, unspecified Plan Patient has improved, renal function is better, mouth has improved with acyclovir, plan to advance diet and replace potassium. Possible discharge home tomorrow.
--- NOTE | 2023-03-15 11:46 | EXP.PHA.PN ---
Subjective *Date: 03/15/23 *Time: 11:46 Medical Exam Vital signs and Labs for Last 24 Hours: Vital Signs Temp Pulse Resp BP Pulse Ox O2 Del Method 03/15/23 07:41 97.6 F 74 17 159/63 H 98 Room Air 03/15/23 06:53 Room Air 03/15/23 05:00 Room Air 03/15/23 04:00 98.1 F 120 H 19 134/69 96 03/15/23 03:00 Room Air 03/15/23 01:00 Room Air 03/14/23 23:00 Room Air 03/14/23 21:00 Room Air 03/14/23 20:00 Room Air 03/14/23 20:00 97.9 F 75 16 152/69 H 92 L 03/14/23 15:16 97.7 F 72 18 152/67 H 96 Room Air Intake and Output 03/14/23 03/15/23 03/15/23 23:59 07:59 15:59 Intake Total 240 / 1820 490 / 490 Output Total 400 / 1850 Balance -160 / -30 490 / 490 Intake: Intake, Oral Amount 240 / 720 240 / 240 Intake, Total IV Amount 250 / 250 Acyclovir Sodium 300 mg In 0.9 250 / 250 % Sodium Chloride 250 ml @ 250 mls/hr IV Q12H [facility] Rx#:[id number] Output: Output, Urine Amount 400 / 1850 Other: Number of Unmeasured Voids 0 1 Number of Bowel Movements 1 Weight 95.527 kg Patient Weight 03/15/23 23:59 Weight 95.527 kg Laboratory Results - last 24 hr 03/15/23 07:47: WBC 7.7, RBC 3.45 L, Hgb 10.3 L, Hct 32.0 L, MCV 92.6, MCH 29.9, MCHC 32.3, RDW 15.1, Plt Count 216, MPV 7.8, Neut % (Auto) 75.6, Lymph % (Auto) 17.5, [place] % (Auto) 4.7, Eos % (Auto) 1.7, Baso % (Auto) 0.4, Neut # (Auto) 5.9, Lymph # (Auto) 1.4, [place] # (Auto) 0.4, Eos # (Auto) 0.1, Baso # (Auto) 0.0, Sodium 143, Potassium 3.4 L, Chloride 111 H, Carbon Dioxide 23, Anion Gap 12.4, BUN 14 D, Creatinine 1.00 D, Estimated Creat Clear 65, Estimated GFR 53 L, Est GFR ( Amer) 64 D, Glucose 52 L, Calcium 7.6 L I & O for Labs for Last 24 Hours: Intake & Output 03/12/23 03/13/23 03/14/23 03/15/23 23:59 23:59 23:59 23:59 Intake Total 2569.5 / 2644.5 1215 / 1215 1570 / 1820 490 / 490 Output Total 1250 / 1250 525 / 775 1850 / 1850 Balance 1319.5 / 1394.5 690 / 440 -280 / -30 490 / 490 Weight 63.163 kg 63.5 kg 63.957 kg 95.527 kg Microbiology Reports for the Last 24 Hours: Microbiology 03/11/23 15:04 Blood Blood Culture - Preliminary 03/11/23 14:25 Blood Blood Culture - Preliminary 03/11/23 17:23 Urine,Catheterized Urine Culture - Final The patient's infection will respond to the chosen ABx?: Yes (URINE CX MIXED [place], BLOOD CX NO GROWTH, AFEBRILE OVER 24 HR, WBC 7.7 ) Is the patient receiving the right drug, dose, and route?: Yes Could a more targeted ABx be ordered?: No
[2023-03-15] MEDS: POTASSIUM CHLORIDE 10MEQ CAPSULE.ER 10 MEQ PO ×2 (12:58→20:45)
[2023-03-15] MEDS: ACYCLOVIR SODIUM IV ×2 (12:58→18:16)
[2023-03-15] MEDS: SODIUM CHLORIDE 0.9% IV ×2 (12:58→18:16)
[2023-03-15 15:13] VITALS: BP 162/72; PULSE 76; RESP 16; TEMP 36.7; O2SAT 96
[2023-03-15] MEDS: ONDANSETRON 4MG/2ML VIAL 4 MG IV (16:07)
--- NOTE | 2023-03-15 18:58 | PC.NURSE ---
patient a&ox4 vss. Patient's bladder did not prolapse this shift. Patient had no c/o pain or discomfort.
[2023-03-15 20:00] VITALS: BP 148/77; PULSE 93; RESP 16; TEMP 36.6; O2SAT 98
[2023-03-15] MEDS: ROPINIROLE 1MG TABLET 0.5 MG PO (20:41)
[2023-03-15] MEDS: MELATONIN 5MG TABLET 5 MG PO (20:41)
[2023-03-15] MEDS: SODIUM CHLORIDE 0.9% 25ML BAG 25 ML IV (20:42)
[2023-03-15] MEDS: ATORVASTATIN 40MG TABLET 40 MG PO (20:42)
[2023-03-15] MEDS: PROMETHAZINE HCL 25MG/ML 1ML VIAL 12.5 MG IV (20:42)
[2023-03-15] MEDS: TRAMADOL 50MG TABLET 50 MG PO (20:42)
[2023-03-16] MEDS: ACYCLOVIR SODIUM IV ×2 (02:36→09:54)
[2023-03-16] MEDS: SODIUM CHLORIDE 0.9% IV ×2 (02:36→09:54)
[2023-03-16 04:00] VITALS: BP 146/76; PULSE 83; RESP 16; TEMP 36.8; O2SAT 95; BMI 23.9
--- NOTE | 2023-03-16 05:11 | PC.NURSE ---
Patient has had a good shift. Patient bladder did prolapse at the beginning of shift. RN manually reinserted the bladder. Patient has not had any complaints through the night. Has had 2 BMs this shift. and 2 voids. No other issues through the night
[2023-03-16 07:33] LABS: Basophils % 0.4 % (0.1-2.0); Eosinophils # 0.1 K/mm3 (0.0-0.4); Eosinophils % 1.2 % (0.1-12.0); Hematocrit 30.9 % (37.0-47.0); Hemoglobin 10.2 g/dL (12.2-16.2); Lymphocytes # 1.6 K/mm3 (0.7-4.5); Lymphocytes % 22.6 % (10-50); Mean Corpuscular Hemoglobin 30.1 pg (27.0-31.2); Mean Corpuscular Volume 91.3 fl (81-99); Mean Platelet Volume 7.5 fl (7.4-10.4); Monocytes # 0.5 K/mm3 (0.1-1.0); Monocytes % 6.7 % (1.7-9.3); Neutrophils # 4.9 K/mm3 (1.8-7.8); Neutrophils % 69.1 % (37.0-80.0); Platelet Count 209 K/mm3 (142-424); Red Blood Count 3.38 M/mm3 (4.20-5.40); Red Cell Distribution Width 15.2 % (11.5-17.5)
[2023-03-16 07:51] LABS: Anion Gap 11.6 mEq/L (5-15); Blood Urea Nitrogen 9 mg/dl (7-17); Calcium 7.4 mg/dl (8.4-10.2); Carbon Dioxide 23 mmol/L (22.0-30.0); Chloride 111 mmol/L (98-107); Creatinine Clearance Estimated 45 mL/min (50-200); Estimated Glomerular Filt Rate 69 ml/min (>60); GFR (African American) 83 ML/MIN (>60); Glucose 79 mg/dl (74-100); Potassium 3.6 mmoL/L (3.5-5.1); Sodium 142 mmol/L (136-145)
[2023-03-16 08:00] VITALS: BP 146/71; PULSE 76; RESP 18; TEMP 36.7; O2SAT 95; O2SAT 98
--- NOTE | 2023-03-16 08:50 | EXP.ACUTE.PN ---
Subjective *Date: 03/16/23 *Time: 09:03 Interval history: Patient states she is ready to go home. She is eating little. She has slept very little. She wants to go home and sleep. Laboratory data this morning white count is normal with a hemoglobin of 10.2 hematocrit of 30.9. Blood chemistries are satisfactory. Urine culture shows mixed organisms with colony count of 25-50,000. Medical Exam Vital signs and Labs for Last 24 Hours: Vital Signs Temp Pulse Resp BP Pulse Ox O2 Del Method 03/16/23 08:00 95 Room Air 03/16/23 08:00 98.1 F 76 18 146/71 H 98 Room Air 03/16/23 06:55 Room Air 03/16/23 05:00 Room Air 03/16/23 04:00 98.3 F 83 16 146/76 H 95 03/16/23 03:00 Room Air 03/16/23 01:00 Room Air 03/15/23 23:00 Room Air 03/15/23 21:00 Room Air 03/15/23 20:00 Room Air 03/15/23 20:00 97.9 F 93 H 16 148/77 H 98 03/15/23 15:13 98.1 F 76 16 162/72 H 96 Room Air Intake and Output 03/15/23 03/16/23 03/16/23 19:59 03:59 11:59 Intake Total 480 / 480 150 / 630 240 / 870 Output Total 250 / 250 Balance 480 / 480 -100 / 380 240 / 620 Intake: Intake, Oral Amount 480 / 480 150 / 630 240 / 870 Output: Output, Urine Amount 250 / 250 Other: Number of Unmeasured Voids 1 Number of Bowel Movements 1 Weight 143 lb 11.2 oz Patient Weight 03/16/23 11:59 Weight 143 lb 11.2 oz Laboratory Results - last 24 hr 03/15/23 07:47: WBC 7.7, RBC 3.45 L, Hgb 10.3 L, Hct 32.0 L, MCV 92.6, MCH 29.9, MCHC 32.3, RDW 15.1, Plt Count 216, MPV 7.8, Neut % (Auto) 75.6, Lymph % (Auto) 17.5, [place] % (Auto) 4.7, Eos % (Auto) 1.7, Baso % (Auto) 0.4, Neut # (Auto) 5.9, Lymph # (Auto) 1.4, [place] # (Auto) 0.4, Eos # (Auto) 0.1, Baso # (Auto) 0.0, Sodium 143, Potassium 3.4 L, Chloride 111 H, Carbon Dioxide 23, Anion Gap 12.4, BUN 14 D, Creatinine 1.00 D, Estimated Creat Clear 65, Estimated GFR 53 L, Est GFR ( Amer) 64 D, Glucose 52 L, Calcium 7.6 L 03/16/23 07:08: WBC 7.0, RBC 3.38 L, Hgb 10.2 L, Hct 30.9 L, MCV 91.3, MCH 30.1, MCHC 33.0, RDW 15.2, Plt Count 209, MPV 7.5, Neut % (Auto) 69.1, Lymph % (Auto) 22.6, [place] % (Auto) 6.7, Eos % (Auto) 1.2, Baso % (Auto) 0.4, Neut # (Auto) 4.9, Lymph # (Auto) 1.6, [place] # (Auto) 0.5, Eos # (Auto) 0.1, Baso # (Auto) 0.0, Sodium 142, Potassium 3.6, Chloride 111 H, Carbon Dioxide 23, Anion Gap 11.6, BUN 9 D, Creatinine 0.80, Estimated Creat Clear 45, Estimated GFR 69, Est GFR ( Amer) 83 D, Glucose 79 D, Calcium 7.4 L I & O for Labs for Last 24 Hours: Intake & Output 03/13/23 03/14/23 03/15/23 03/16/23 11:59 11:59 11:59 11:59 Intake Total 1925 / 1925 1870 / 1870 970 / 970 870 / 870 Output Total 1575 / 1575 850 / 850 1000 / 1000 250 / 250 Balance 350 / 350 1020 / 1020 -30 / -30 620 / 620 Weight 140 lb 141 lb 210 lb 9.6 oz 143 lb 11.2 oz Microbiology Reports for the Last 24 Hours: Microbiology 03/11/23 15:04 Blood Blood Culture - Preliminary 03/11/23 14:25 Blood Blood Culture - Preliminary Constitutional: Present no acute distress Comment:: Sitting up in the bed and appears comfortable Respiratory: Present CTA bilaterally (Anteriorly and posteriorly) Cardiac: Present Regular Rhythm GI: Present soft and normal bowel sounds; Absent distention, tenderness or guarding Extremities: Absent tenderness or edema Neuro: Present alert, awake and oriented x 3 Assessment and Plan *Assessment and plan (1) YAMEL (acute kidney injury): Status: Acute Category: Medical Code(s): N17.9 - Acute kidney failure, unspecified (2) Acute UTI: Status: Acute Category: Medical Code(s): N39.0 - Urinary tract infection, site not specified (3) Prolapse of anterior vaginal wall: Status: Acute Category: Medical Code(s): N81.10 - Cystocele, unspecified (4) Hypovolemia: Status: Acute Category: Medical Code(s): E86.1 - Hypovolemia (5) Stomatitis: Status: Acute Category: Medical Code(s): K12.1 - Other forms of stomatitis (6) Elevated troponin: Status: Acute Category: Medical Code(s): R79.89 - Other specified abnormal findings of blood chemistry (7) Coronary artery disease: Status: Acute Qualifiers: Associated angina: without angina Coronary Disease-Associated Artery/Lesion type: [place] artery [place] vs. transplanted heart: [place] heart Qualified Code(s): I25.10 - Atherosclerotic heart disease of [place] coronary artery without angina pectoris Category: Medical Code(s): I25.10 - Atherosclerotic heart disease of [place] coronary artery without angina pectoris (8) Cardiomyopathy: Status: Acute Category: Medical Code(s): I42.9 - Cardiomyopathy, unspecified (9) HTN (hypertension): Status: Acute Qualifiers: Hypertension type: unspecified Qualified Code(s): I10 - Essential (primary) hypertension Category: Medical Code(s): I10 - Essential (primary) hypertension (10) Hyperlipidemia: Status: Acute Qualifiers: Hyperlipidemia type: mixed hyperlipidemia Qualified Code(s): E78.2 - Mixed hyperlipidemia Category: Medical Code(s): E78.5 - Hyperlipidemia, unspecified Plan Patient to discharge home today. States she has help / at home. Discussed [facility] department for prolapsed bladder. Dr. Linda entry - Saw patient, agree with above note. OK for discharge home today with 24 care at home and home health.
[2023-03-16] MEDS: MAGIC MOUTHWASH 300ML BOTTLE 15 ML PO (09:12)
[2023-03-16] MEDS: CONJUGATED ESTROGENS 0.625MG/GM 30GM APPLICATOR VG (09:12)
[2023-03-16] MEDS: CEFTRIAXONE SODIUM 1 GM in 0.9 % SODIUM CHLORIDE 50 ML IV (09:13)
--- NOTE | 2023-03-16 09:28 | PC.NURSE ---
Family and caregiver notified of pt's DC
--- NOTE | 2023-03-16 11:35 | PC.NURSE ---
Education on medication, upcoming appointments and medical condition provided to pt, family and patient care provider. Verbally acknowledged and understood by all.
--- NOTE | 2023-03-17 09:51 | EXP.DC.SUM ---
General Admission date:: 03/11/23 Discharge date: 03/16/23 HPI HPI HPI: Patient is a 82-year-old female with past medical history of ACS status post stenting in January, LifeVest placement, hyperkalemia and CKD who presents emergency department for evaluation of weakness. Over the last 4 days patient has not ate anything, over the last 2 days patient has not drank anything, she has global weakness. She is still able to ambulate however decreased from her baseline. Due to weakness she presents here for continued evaluation. Per chart review patient had a cath on with a drug-eluting stent to the proximal LAD. This patient came in to see me on for weakness as well. Her workup at that time was remarkable for significant hypokalemia and hypomagnesemia with acute renal failure and patient was transported to [facility]. Supposedly patient had a GI bleed at some point and was transferred to [facility] for higher level of care. No other history from that standpoint is able to be obtained. There is associated nausea and intermittent nonbloody vomiting. Patient denies chest pain, shortness of breath, other acute complaints other than global weakness at this time. Review of [facility] discharge summary at the end of January patient was being worked up for contrast-induced YAMEL in the setting of heart catheterization, potassium was downtrending. Patient responded to IV fluids and had resolution of YAMEL with creatinine improved to 1.14 after volume resuscitation. Patient had a GI bleed that was started on Protonix drip and transfused 2 units and was transferred to [facility]. (above as per ER physician) The ER physician felt she was in hypovolemic shock. The patient was started on IV fluids. Her labs revealed hyperkalemia, acute kidney injury, and an elevated troponin in the setting of an elevated creatinine. Her heart rate did improve with crystalloid resuscitation and the cyanosis of her extremities improved. She was given Lokelma for her hyperkalemia. She was also found to have a UTI and was given Rocephin. She was admitted for her acute kidney injury, hyperkalemia, UTI, weakness, and possible need for placement in a prison. The patient states she stays nauseated daily. She has been unable to eat and drink at home due to the nausea. She also developed stomatitis a few days ago and this has also prevented her from eating and drinking. Hospital Course Hospital Course Hospital Course: On admission patient was started on IV hydration and clear liquids. She was started on meds for constipation. She was started on Magic mouthwash for stomatitis. She had antiemetics ordered as well. She did develop some vomiting and diarrhea after admission. Her mouth remained painful. An antiviral was initiated for stomatitis as the Magic mouthwash did not help. White blood cell count was improving. She continued with antibiotics while awaiting urine culture. She was seen by Dr. Darline Jane for cystocele which occurred when [place] catheter was removed. This was reduced at bedside. [facility] [employer] appointment was not initiated for follow-up. Patient did eventually begin to feel better. Renal function improved with IV hydration. She began to tolerate clear liquids. Diet was advanced as tolerated and potassium added. On 03/16/2023 patient was anxious to go home. She ate very little but was eating. She states she slept very well but was wanting to go home so that she could sleep. White count normalized; hemoglobin was noted to be 10.2 with HCT 30.9. Urine culture showed mixed organisms with colony count of 25-50,000. On this date she was discharged home. She was to have home health with PT and OT. Patient states she had 15/09 help. Follow-up with Dr. Justice on 03/24/2023 and with [facility] this week. She was to continue with cefdinir and also valacyclovir for her stomatitis. Exam Data for Last 24 hours Vital signs and Labs for Last 24 Hours: Temp Pulse Resp BP Pulse Ox O2 Del Method 98.1 F 76 18 146/71 H 95 Room Air 03/16/23 08:00 03/16/23 08:00 03/16/23 08:00 03/16/23 08:00 03/16/23 08:00 03/16/23 11:00 I & O for Last 24 hours: Intake & Output 03/14/23 03/15/23 03/16/23 03/17/23 11:59 11:59 11:59 11:59 Intake Total 1870 / 1870 970 / 970 870 / 870 Output Total 850 / 850 1000 / 1000 250 / 250 Balance 1020 / 1020 -30 / -30 620 / 620 Weight 141 lb 210 lb 9.6 oz 143 lb 11.2 oz Narrative: Medical Exam Vital signs and Labs for Last 24 Hours: Vital Signs Temp Pulse Resp BP Pulse Ox O2 Del Method 03/16/23 08:00 95 Room Air 03/16/23 08:00 98.1 F 76 18 146/71 H 98 Room Air 03/16/23 06:55 Room Air 03/16/23 05:00 Room Air 03/16/23 04:00 98.3 F 83 16 146/76 H 95 03/16/23 03:00 Room Air 03/16/23 01:00 Room Air 03/15/23 23:00 Room Air 03/15/23 21:00 Room Air 03/15/23 20:00 Room Air 03/15/23 20:00 97.9 F 93 H 16 148/77 H 98 03/15/23 15:13 98.1 F 76 16 162/72 H 96 Room Air Intake and Output 03/15/23 03/16/23 03/16/23 19:59 03:59 11:59 Intake Total 480 / 480 150 / 630 240 / 870 Output Total 250 / 250 Balance 480 / 480 -100 / 380 240 / 620 Intake: Intake, Oral Amount 480 / 480 150 / 630 240 / 870 Output: Output, Urine Amount 250 / 250 Other: Number of Unmeasured Voids 1 Number of Bowel Movements 1 Weight 143 lb 11.2 oz Patient Weight 03/16/23 11:59 Weight 143 lb 11.2 oz Laboratory Results - last 24 hr 03/15/23 07:47: WBC 7.7, RBC 3.45 L, Hgb 10.3 L, Hct 32.0 L, MCV 92.6, MCH 29.9, MCHC 32.3, RDW 15.1, Plt Count 216, MPV 7.8, Neut % (Auto) 75.6, Lymph % (Auto) 17.5, [place] % (Auto) 4.7, Eos % (Auto) 1.7, Baso % (Auto) 0.4, Neut # (Auto) 5.9, Lymph # (Auto) 1.4, [place] # (Auto) 0.4, Eos # (Auto) 0.1, Baso # (Auto) 0.0, Sodium 143, Potassium 3.4 L, Chloride 111 H, Carbon Dioxide 23, Anion Gap 12.4, BUN 14 D, Creatinine 1.00 D, Estimated Creat Clear 65, Estimated GFR 53 L, Est GFR ( Amer) 64 D, Glucose 52 L, Calcium 7.6 L 03/16/23 07:08: WBC 7.0, RBC 3.38 L, Hgb 10.2 L, Hct 30.9 L, MCV 91.3, MCH 30.1, MCHC 33.0, RDW 15.2, Plt Count 209, MPV 7.5, Neut % (Auto) 69.1, Lymph % (Auto) 22.6, [place] % (Auto) 6.7, Eos % (Auto) 1.2, Baso % (Auto) 0.4, Neut # (Auto) 4.9, Lymph # (Auto) 1.6, [place] # (Auto) 0.5, Eos # (Auto) 0.1, Baso # (Auto) 0.0, Sodium 142, Potassium 3.6, Chloride 111 H, Carbon Dioxide 23, Anion Gap 11.6, BUN 9 D, Creatinine 0.80, Estimated Creat Clear 45, Estimated GFR 69, Est GFR ( Amer) 83 D, Glucose 79 D, Calcium 7.4 L I & O for Labs for Last 24 Hours: Intake & Output 03/13/23 03/14/23 03/15/23 03/16/23 11:59 11:59 11:59 11:59 Intake Total 1925 / 1925 1870 / 1870 970 / 970 870 / 870 Output Total 1575 / 1575 850 / 850 1000 / 1000 250 / 250 Balance 350 / 350 1020 / 1020 -30 / -30 620 / 620 Weight 140 lb 141 lb 210 lb 9.6 oz 143 lb 11.2 oz Microbiology Reports for the Last 24 Hours: Microbiology 03/11/23 15:04 Blood Blood Culture - Preliminary 03/11/23 14:25 Blood Blood Culture - Preliminary Constitutional: Present no acute distress Comment:: Sitting up in the bed and appears comfortable Respiratory: Present CTA bilaterally (Anteriorly and posteriorly) Cardiac: Present Regular Rhythm GI: Present soft and normal bowel sounds; Absent distention, tenderness or guarding Extremities: Absent tenderness or edema Neuro: Present alert, awake and oriented x 3 Results Data Completed and Pending Completed studies during hospitalization [Text1]: 03/11/2023 CXR FINDINGS: SINGLE-VIEW CHEST The heart size is normal. The mediastinum is normal. There are mild bibasilar opacities, may represent atelectasis or pneumonia. There is no pneumothorax. IMPRESSION: Mild bibasilar atelectasis or pneumonia. Labs on day of discharge: Preliminary micro results at discharge 03/11/23 15:04 Blood Culture - Preliminary Blood 03/11/23 14:25 Blood Culture - Preliminary Blood DS: Diagnosis Discharge Diagnosis (1) YAMEL (acute kidney injury): Status: Resolved Code(s): N17.9 - Acute kidney failure, unspecified (2) Acute UTI: Status: Acute Code(s): N39.0 - Urinary tract infection, site not specified (3) Prolapse of anterior vaginal wall: Status: Acute Code(s): N81.10 - Cystocele, unspecified (4) Hypovolemia: Status: Resolved Code(s): E86.1 - Hypovolemia (5) Stomatitis: Status: Acute Code(s): K12.1 - Other forms of stomatitis (6) Elevated troponin: Status: Inactive Code(s): R79.89 - Other specified abnormal findings of blood chemistry (7) Coronary artery disease: Status: Inactive Code(s): I25.10 - Atherosclerotic heart disease of [place] coronary artery without angina pectoris Qualifiers: Associated angina: without angina Coronary Disease-Associated Artery/Lesion type: [place] artery [place] vs. transplanted heart: [place] heart Qualified Code(s): I25.10 - Atherosclerotic heart disease of [place] coronary artery without angina pectoris (8) Cardiomyopathy: Status: Inactive Code(s): I42.9 - Cardiomyopathy, unspecified (9) HTN (hypertension): Status: Acute Code(s): I10 - Essential (primary) hypertension Qualifiers: Hypertension type: unspecified Qualified Code(s): I10 - Essential (primary) hypertension (10) Hyperlipidemia: Status: Inactive Code(s): E78.5 - Hyperlipidemia, unspecified Qualifiers: Hyperlipidemia type: mixed hyperlipidemia Qualified Code(s): E78.2 - Mixed hyperlipidemia Meds Home Medications and Allergies Home Medications Medication Instructions Recorded Confirmed Type amlodipine 5 mg tablet 5 mg PO DAILY 03/11/23 03/24/23 History aspirin 81 mg chewable tablet 81 mg PO DAILY 03/11/23 03/24/23 History atorvastatin 40 mg tablet 40 mg PO HS 03/11/23 03/24/23 History carvedilol 3.125 mg tablet 3.125 mg PO BID 03/11/23 03/24/23 History clopidogrel 75 mg tablet 75 mg PO DAILY 03/11/23 03/24/23 History empagliflozin 10 mg tablet 10 mg PO DAILY 03/11/23 03/24/23 History (Jardiance) ropinirole 0.5 mg tablet 0.5 mg PO HS 03/11/23 03/24/23 History sacubitril 24 mg-valsartan 26 mg 1 tab PO BID 03/11/23 03/24/23 History tablet (Entresto) spironolactone 25 mg tablet 25 mg PO DAILY 03/11/23 03/24/23 History tramadol 50 mg tablet 50 mg PO QID PRN Pain 03/11/23 03/24/23 History ondansetron 4 mg disintegrating 4 mg translingual Q8H PRN Nausea 03/12/23 03/24/23 History tablet And Vomiting scopolamine base 1 mg over 3 days 1 patch transdermal .EVERY 3 DAYS 03/12/23 03/24/23 History transdermal patch PRN Nausea cefuroxime axetil 500 mg tablet 500 mg PO BID #10 tabs 03/16/23 03/24/23 Rx valacyclovir 1 gram tablet 1,000 mg PO TID #21 tabs 03/16/23 03/24/23 Rx fluconazole 150 mg tablet 150 mg PO DAILY #1 tab 03/19/23 03/24/23 Rx New Prescriptions to Start Prescriptions: cefuroxime axetil Hollis Linda valacyclovir Hollis Linda Allergies Allergy/AdvReac Type Severity Reaction Status Date / Time Penicillins Allergy Verified 03/24/23 14:13 Sulfa (Sulfonamide Allergy Verified 03/24/23 14:13 Antibiotics) triprolidine Allergy Verified 03/24/23 14:13 Discharge Plan Disposition Patient Disposition: Home Health Service Condition: Fair Discharge Order Discharge Orders: Discharge Order (Routine); Ordered 03/16/23 Ordered By: Hollis Linda Follow up Plan Follow up with: Darline Yao DO [Staff Physician] - 03/17/23 9:00 am Rufus Justice MD [Primary Care Provider] - 03/24/23 11:15 am Prescriptions/Medication Reconciliation: New valacyclovir 1 gram tablet 1,000 mg PO TID Qty: 21 0RF cefuroxime axetil 500 mg tablet 500 mg PO BID Qty: 10 0RF Continued atorvastatin 40 mg tablet 40 mg PO HS clopidogrel 75 mg tablet 75 mg PO DAILY amlodipine 5 mg tablet 5 mg PO DAILY tramadol 50 mg tablet 50 mg PO QID PRN (Reason: Pain) spironolactone 25 mg tablet 25 mg PO DAILY carvedilol 3.125 mg tablet 3.125 mg PO BID ropinirole 0.5 mg tablet 0.5 mg PO HS aspirin 81 mg tablet,chewable 81 mg PO DAILY Jardiance 10 mg tablet 10 mg PO DAILY Entresto 24-26 mg tablet 1 tab PO BID ondansetron 4 mg tablet,disintegrating 4 mg translingual Q8H PRN (Reason: Nausea And Vomiting) scopolamine base 1 mg over 3 days patch 3 day 1 patch transdermal .EVERY 3 DAYS PRN (Reason: Nausea) Discontinued furosemide 40 mg tablet 40 mg PO DAILY potassium chloride 20 mEq tablet,ER particles/crystals 20 meq PO BID No Action fluconazole 150 mg tablet 150 mg PO DAILY Qty: 1 0RF Rx Instructions: take on 03/22 for yeast infection Problem Reconciliation Problems Reviewed?: Yes Patient Discharge Instructions ACTIVITY: Continue current activity DIET: continue same diet Patient Instructions: Cystocele/Rectocele, Urinary Tract Infection, DI for Urinary Tract Infection (UTI), DI for Hyperkalemia, DI for Acute Kidney Injury, Catheter-Associated Urinary Tract Infection Providers Primary Care Provider: Rufus Justice Admit Provider: Hollis Linda Attending Provider: Hollis Linda
--- NOTE | 2023-03-18 11:17 | CARE MANAGER ---
Spoke with patient's caregiver related to hospital discharge. She states patient has been vomiting and cannot keep anything down except a little water. Encouraged her to go to the doctor, but states she went before for the vomiting and he didn't do anything. Suggested bringing her to [facility] and she said they would consider it. Home health was started yesterday and therapy is coming today.
== END 2023-03-16 11:46 | disposition home health service (06) | DRG 682 ==
LOC: ER 19:04 → 2ND 19:30
PROVIDERS: Emergency Medicine; Physician Assistant; Admitting Provider Family Medicine; Emergency Provider Emergency Medicine; PCP Family Medicine; Visit Provider Family Medicine
DX: N17.9 Acute kidney failure, unspecified (principal); R57.1 Hypovolemic shock; N39.0 Urinary tract infection, site not specified; E86.0 Dehydration; I11.0 Hypertensive heart disease with heart failure; I50.9 Heart failure, unspecified; I25.5 Ischemic cardiomyopathy; E78.5 Hyperlipidemia, unspecified; E78.2 Mixed hyperlipidemia; N81.10 Cystocele, unspecified; K12.1 Other forms of stomatitis; E87.5 Hyperkalemia; I25.10 Atherosclerotic heart disease of native coronary artery without angina pectoris; K59.00 Constipation, unspecified
CPT/HCPCS: 36415; 51702; 71045; 80048; 80053; 81001; 82803; 83605; 83735; 83880; 84484; 85025; 87040; 87086; 87636; 93005; 97116; 97163; 97166; 97530; 97535; J0696; J2405

== ENCOUNTER 2023-03-18 22:03 | Emergency (ER) | payer MEDICARE, BC, SELFPAY ==
--- NOTE | 2023-03-18 22:02 | ECG_ITS ---
APPROVED REPORT Exam: Resting ECG HR:78 bpm ECG Measurements Heart Rate 78 AXES OK 150 P 85 QRSd 108 QRS 13 QT 378 T 175 QTc [address] DEVIATION AND MODERATE T-WAVE ABNORMALITY, CONSIDER LATERAL ISCHEMIA [-0.1+ mV T-WAVE IN I/aVL/V5/V6] ABNORMAL ECG UNCONFIRMED REPORT Electronically signed by : Dayo Gay MD 03/20/2023 14:38:28
[2023-03-18 22:03] VITALS: BP 126/62; PULSE 79; RESP 19; TEMP 36.8; O2SAT 96; BMI 22.4
[2023-03-18 22:06] VITALS: BP 126/62; PULSE 76; RESP 17; O2SAT 93
[2023-03-18 22:14] VITALS: BMI 22.4
--- NOTE | 2023-03-18 22:15 | XR_ITS ---
PROCEDURE INFORMATION: Exam: XR Chest Exam date and time: 03/18/2023 10:21 PM Age: 82 years old Clinical indication: Pain; Chest pressure; Additional info: Cp TECHNIQUE: Imaging protocol: Radiologic exam of the chest. Views: 1 view. COMPARISON: CR XR CHEST PORTABLE 03/11/2023 1:43 PM FINDINGS: Lungs: Unremarkable. No consolidation. Pleural spaces: Unremarkable. No pleural effusion. No pneumothorax. Heart/Mediastinum: Unremarkable. No cardiomegaly. Bones/joints: Unremarkable. IMPRESSION: No acute findings.
--- NOTE | 2023-03-18 22:21 | HMH.EDGENADL ---
Discharge Plan Disposition Patient Disposition: Home, Self-Care Prescriptions Prescriptions: New fluconazole 150 mg tablet 150 mg PO DAILY Qty: 1 0RF Rx Instructions: take on 03/22 for yeast infection No Action atorvastatin 40 mg tablet 40 mg PO HS clopidogrel 75 mg tablet 75 mg PO DAILY amlodipine 5 mg tablet 5 mg PO DAILY tramadol 50 mg tablet 50 mg PO QID PRN (Reason: Pain) spironolactone 25 mg tablet 25 mg PO DAILY carvedilol 3.125 mg tablet 3.125 mg PO BID ropinirole 0.5 mg tablet 0.5 mg PO HS aspirin 81 mg tablet,chewable 81 mg PO DAILY Jardiance 10 mg tablet 10 mg PO DAILY Entresto 24-26 mg tablet 1 tab PO BID ondansetron 4 mg tablet,disintegrating 4 mg translingual Q8H PRN (Reason: Nausea And Vomiting) scopolamine base 1 mg over 3 days patch 3 day 1 patch transdermal .EVERY 3 DAYS PRN (Reason: Nausea) valacyclovir 1 gram tablet 1,000 mg PO TID Qty: 21 0RF cefuroxime axetil 500 mg tablet 500 mg PO BID Qty: 10 0RF Referrals Follow up/Referrals: Rufus Justice MD [Primary Care Provider] - See instructions Activity Restrictions/Add. Instructions Additional Instructions/Restrictions: Please follow-up with your PCP for recheck of your labs. Your potassium may continue to lower if your diarrhea and other symptoms persist. I gave you a dose of fluconazole for yeast infection. Please take another dose in 3 days. Please follow-up with your primary care provider. Please return to the emergency department if you develop any new or worsening symptoms or become concerned for your health. Clinical Impressions Clinical Impression: Hypokalemia, Candidal vulvovaginitis Syncope Qualifiers: Encounter type: initial encounter Discharge ED Provider: John Rose General Adult HPI <John Rose MD - Last Filed: 03/19/23 00:31> General Chief complaint: Syncope Stated complaint: Syncope Time Seen by Provider: 03/18/23 22:05 Mode of Arrival: EMS Source of Information: Patient and EMS Limitations: No Limitations Description of Symptoms (Recalled from ER Triage Doc. by RN): Patient has had 2 sycopal episodes today while sitting. History of Present Illness HPI narrative: Patient is a 82-year-old female with past medical history of CKD, ACS status post stenting, CHF, left bundle branch block, hypertension who presents emergency department for evaluation of syncope. History is obtained by patient at bedside and per chart review. Patient was recently admitted for UTI, YAMEL, weakness, subsequently discharged. Over the last couple of days patient has been compliant with her oral antibiotics however has developed nonbloody vomiting and diarrhea. Upon arising from her chair tonight to ambulate to the bedroom she passed out twice but was caught by her caregiver at bedside. No head trauma. No chest pain. No abdominal pain. No other acute complaints at this time. Related Data Home Medications Medication Instructions Recorded Confirmed amlodipine 5 mg tablet 5 mg PO DAILY 03/11/23 03/11/23 aspirin 81 mg chewable tablet 81 mg PO DAILY 03/11/23 03/11/23 atorvastatin 40 mg tablet 40 mg PO HS 03/11/23 03/11/23 carvedilol 3.125 mg tablet 3.125 mg PO BID 03/11/23 03/11/23 clopidogrel 75 mg tablet 75 mg PO DAILY 03/11/23 03/11/23 empagliflozin 10 mg tablet 10 mg PO DAILY 03/11/23 03/11/23 (Jardiance) ropinirole 0.5 mg tablet 0.5 mg PO HS 03/11/23 03/11/23 sacubitril 24 mg-valsartan 26 mg 1 tab PO BID 03/11/23 03/11/23 tablet (Entresto) spironolactone 25 mg tablet 25 mg PO DAILY 03/11/23 03/11/23 tramadol 50 mg tablet 50 mg PO QID PRN Pain 03/11/23 03/12/23 ondansetron 4 mg disintegrating 4 mg translingual Q8H PRN Nausea 03/12/23 03/12/23 tablet And Vomiting scopolamine base 1 mg over 3 days 1 patch transdermal .EVERY 3 DAYS 03/12/23 03/12/23 transdermal patch PRN Nausea Previous Rx's Medication Instructions Recorded cefuroxime axetil 500 mg tablet 500 mg PO BID #10 tabs 03/16/23 valacyclovir 1 gram tablet 1,000 mg PO TID #21 tabs 03/16/23 fluconazole 150 mg tablet 150 mg PO DAILY #1 tab 03/19/23 Allergies Allergy/AdvReac Type Severity Reaction Status Date / Time Penicillins Allergy Verified 12/21/23 11:56 Sulfa (Sulfonamide Allergy Verified 02/12/23 11:56 Antibiotics) triprolidine Allergy Verified 02/12/23 11:56 PFSH <John Rose MD - Last Filed: 03/19/23 00:31> [facility] Disclaimer: The information contained in this section may have been updated after the patient was seen, as this information can be updated by other users. Medical History (Updated 03/19/23 @ 01:09 by Eduardo Pedraza MD) ASCVD (arteriosclerotic cardiovascular disease) CHF (congestive heart failure) History of left heart catheterization HLD (hyperlipidemia) Hypertension Ischemic cardiomyopathy NSTEMI (non-ST elevated myocardial infarction) Surgical History (Updated 03/12/23 @ 09:59 by GRACIE Freed) History of cardiac cath S/P partial hysterectomy Family History Other No significant family history Social History (Updated 03/11/23 @ 21:12 by Marquis Salmon, RN) Smoking Status: Never smoker alcohol intake: never current occupational status: retired Travel in the last 8 weeks: None <John Rose MD - Last Filed: 03/19/23 00:31> ROS Obtained: Yes Systems reviewed as appropriate & no additional complaints except as documented Physical Exam <John Rose MD - Last Filed: 03/19/23 00:31> General General appearance: alert and in no apparent distress Head Head exam: atraumatic and normocephalic Eye Eye exam: Present PERRL and EOMI ENT ENT exam: Present mucous membranes moist Neck Neck exam: Present normal inspection Chest Chest inspection: Present normal inspection and symmetric chest wall rise Respiratory Respiratory exam: Present normal lung sounds bilaterally; Absent respiratory distress Cardiovascular Cardiovascular exam: Present regular rate and normal rhythm Abdominal Exam Abdominal exam: Present soft; Absent tenderness Extremities Exam Extremities exam: Present normal inspection Neurological Exam Neurological exam: Present alert; Absent motor sensory deficit Psychiatric Psychiatric exam: Present normal affect Skin Skin exam: Present warm and dry Medical Decision Making <John Rose MD - Last Filed: 03/19/23 00:31> Zbigniew Inquiry Pt receiving controlled substance: No Vital Signs: 03/18/23 22:03 03/18/23 22:06 03/18/23 22:30 Temperature 98.3 F Temperature Source Oral Pulse Rate 76 77 Pulse Rate [Radial] 79 Respiratory Rate 19 17 27 H Blood Pressure 126/62 112/56 L Blood Pressure [Left Arm] 126/62 Blood Pressure Mean [Left Arm] 83 Blood Pressure Source [Left Arm] Automatic Cuff Blood Pressure Position [Left Arm] Sitting 02 Sat by Pulse Oximetry 96 93 L 94 L Oxygen Delivery Method Room Air 03/18/23 23:00 03/18/23 23:30 03/19/23 00:00 Temperature Temperature Source Pulse Rate 63 71 78 Pulse Rate [Radial] Respiratory Rate 27 H 12 21 Blood Pressure 114/45 L 153/57 H 157/64 H Blood Pressure [Left Arm] Blood Pressure Mean [Left Arm] Blood Pressure Source [Left Arm] Blood Pressure Position [Left Arm] 02 Sat by Pulse Oximetry 93 L 95 98 Oxygen Delivery Method 03/19/23 00:01 03/19/23 00:31 03/19/23 01:00 Temperature Temperature Source Pulse Rate 74 78 75 Pulse Rate [Radial] Respiratory Rate 14 18 16 Blood Pressure 157/64 H 121/42 L 146/75 H Blood Pressure [Left Arm] Blood Pressure Mean [Left Arm] Blood Pressure Source [Left Arm] Blood Pressure Position [Left Arm] 02 Sat by Pulse Oximetry 97 96 98 Oxygen Delivery Method Lab Data Lab Results 03/18/23 22:08: WBC 12.3 H D, RBC 4.14 L, Hgb 12.4, Hct 37.0, MCV 89.4, MCH 29.9, MCHC 33.5, RDW 15.2, Plt Count 362 D, MPV 7.8, Neut % (Auto) 78.9, Lymph % (Auto) 16.2, [place] % (Auto) 4.2, Eos % (Auto) 0.3, Baso % (Auto) 0.4, Neut # (Auto) 9.7 H, Lymph # (Auto) 2.0, [place] # (Auto) 0.5, Eos # (Auto) 0.0, Baso # (Auto) 0.1, Sodium 140, Potassium 3.1 L, Chloride 104, Carbon Dioxide 24, Anion Gap 15.1 H, BUN 9, Creatinine 1.10 H D, Estimated Creat Clear 38, Estimated GFR 48 L, Est GFR ( Amer) 58 L D, Glucose 191 H, Calcium 8.0 L, Magnesium 1.8, Total Bilirubin 0.5, AST 25, ALT 16, Alkaline Phosphatase 131 H, Troponin I 0.04 H, NT-Pro-B Natriuret Pep 54447 H, Total Protein 6.9, Albumin 3.4 L, Globulin 3.5 H, Albumin/Globulin Ratio 1.0 L 03/18/23 22:24: SARS-CoV-2 (PCR) Not detected, Influenza A Untype (PCR) Not detected, Influenza Type B (PCR) Not detected 03/18/23 23:59: Urine Color Yellow, Urine Appearance Cloudy, Urine pH 6.0, Ur Specific [place] 1.020, Urine Protein 2+, Urine Glucose (UA) 1+, Urine Ketones 3+, Urine Blood 1+, Urine Nitrate Negative, Urine Bilirubin 1+ A, Urine Urobilinogen 0.2, Ur Leukocyte Esterase 2+ A, Urine RBC 5-10, Urine WBC Tntc, Ur Squamous Epith Cells None, Urine Bacteria Trace 03/19/23 00:16: Troponin I 0.03 03/18/23 22:08 03/18/23 22:08 Orders (Tests/Meds): ED MEDICATIONS Generic Name Dose Route Start Last Admin Trade Name Freq PRN Reason Stop Dose Admin Fluconazole 200 mg 03/19/23 01:06 Fluconazole 200mg Tablet PO 03/19/23 01:07 ONCE ONE Discontinued Medications Generic Name Dose Route Start Last Admin Trade Name Freq PRN Reason Stop Dose Admin Lactated Ringer's 1,000 mls @ 999 mls/hr 03/18/23 22:30 03/18/23 22:38 Lactated Ringer's 1000 Ml Bag IV 03/18/23 23:30 999 mls/hr .Q1H1M ONE Administration Ondansetron HCl 4 mg 03/18/23 22:30 03/18/23 22:40 Ondansetron 4mg/2ml Vial IV 03/18/23 22:31 4 mg ONCE ONE Administration Potassium Chloride 40 meq 03/18/23 23:46 03/18/23 23:52 Potassium Chloride 20meq Tab PO 03/18/23 23:47 40 meq ONCE ONE Administration ORDERS Category Date Time Status Chest XR -- portable [XR chest portable] Stat Exams 03/18/23 22:15 Completed BNP [Brain Natriuretic Peptide] Stat Lab 03/18/23 22:08 Completed Complete Blood Count Auto Diff Stat Lab 03/18/23 22:08 Completed Comprehensive Metabolic Panel Stat Lab 03/18/23 22:08 Completed MG [Magnesium] Stat Lab 03/18/23 22:08 Completed Rapid PCR Covid and Flu A/B Stat Lab 03/18/23 22:24 Completed Troponin I Q3H Lab 03/19/23 00:16 Completed Troponin I Q3H Lab 03/19/23 04:15 Ordered Troponin I Stat Lab 03/18/23 22:08 Completed UA [Urinalysis and Microscopic] Stat Lab 03/18/23 23:59 Completed Urine Culture Stat Micro 03/18/23 23:59 Received ECG initial Besson Routine Y 03/18/23 22:02 Completed ECG Data Tracing #1: Independently interpreted by me, rate is 78, rhythm is regular, axis is normal, left bundle branch block, negative Sgarbossa, QTc 412. Medical Decision Narrative: In summary patient is a 82-year-old female with past medical history described above who presents emergency department for evaluation of syncope. Patient is hemodynamically stable and nontoxic-appearing upon arrival, afebrile. Patient's history is strongly consistent with vasovagal syncope however given recent admission for urinary tract infection and electrolyte abnormalities and YAMEL workup will be conducted with hematologic labs and EKG as differential includes hyperkalemia, YAMEL on CKD, among others. Initial workup reviewed by me, hematologic labs remarkable for mild hypokalemia which will be repleted orally, initial troponin is slightly elevated however downtrending from prior, viral swab negative. Serial troponin and repeat evaluation pending at time of transfer of care to the oncoming physician, Dr. Pedraza. Heart score 5 <Eduardo Pedraza MD - Last Filed: 03/19/23 01:14> Vital Signs: 03/18/23 22:03 03/18/23 22:06 03/18/23 22:30 Temperature 98.3 F Temperature Source Oral Pulse Rate 76 77 Pulse Rate [Radial] 79 Respiratory Rate 19 17 27 H Blood Pressure 126/62 112/56 L Blood Pressure [Left Arm] 126/62 Blood Pressure Mean [Left Arm] 83 Blood Pressure Source [Left Arm] Automatic Cuff Blood Pressure Position [Left Arm] Sitting 02 Sat by Pulse Oximetry 96 93 L 94 L Oxygen Delivery Method Room Air 03/18/23 23:00 03/18/23 23:30 03/19/23 00:00 Temperature Temperature Source Pulse Rate 63 71 78 Pulse Rate [Radial] Respiratory Rate 27 H 12 21 Blood Pressure 114/45 L 153/57 H 157/64 H Blood Pressure [Left Arm] Blood Pressure Mean [Left Arm] Blood Pressure Source [Left Arm] Blood Pressure Position [Left Arm] 02 Sat by Pulse Oximetry 93 L 95 98 Oxygen Delivery Method 03/19/23 00:01 03/19/23 00:31 03/19/23 01:00 Temperature Temperature Source Pulse Rate 74 78 75 Pulse Rate [Radial] Respiratory Rate 14 18 16 Blood Pressure 157/64 H 121/42 L 146/75 H Blood Pressure [Left Arm] Blood Pressure Mean [Left Arm] Blood Pressure Source [Left Arm] Blood Pressure Position [Left Arm] 02 Sat by Pulse Oximetry 97 96 98 Oxygen Delivery Method Lab Data Lab Results 03/18/23 22:08: WBC 12.3 H D, RBC 4.14 L, Hgb 12.4, Hct 37.0, MCV 89.4, MCH 29.9, MCHC 33.5, RDW 15.2, Plt Count 362 D, MPV 7.8, Neut % (Auto) 78.9, Lymph % (Auto) 16.2, [place] % (Auto) 4.2, Eos % (Auto) 0.3, Baso % (Auto) 0.4, Neut # (Auto) 9.7 H, Lymph # (Auto) 2.0, [place] # (Auto) 0.5, Eos # (Auto) 0.0, Baso # (Auto) 0.1, Sodium 140, Potassium 3.1 L, Chloride 104, Carbon Dioxide 24, Anion Gap 15.1 H, BUN 9, Creatinine 1.10 H D, Estimated Creat Clear 38, Estimated GFR 48 L, Est GFR ( Amer) 58 L D, Glucose 191 H, Calcium 8.0 L, Magnesium 1.8, Total Bilirubin 0.5, AST 25, ALT 16, Alkaline Phosphatase 131 H, Troponin I 0.04 H, NT-Pro-B Natriuret Pep 98768 H, Total Protein 6.9, Albumin 3.4 L, Globulin 3.5 H, Albumin/Globulin Ratio 1.0 L 03/18/23 22:24: SARS-CoV-2 (PCR) Not detected, Influenza A Untype (PCR) Not detected, Influenza Type B (PCR) Not detected 03/18/23 23:59: Urine Color Yellow, Urine Appearance Cloudy, Urine pH 6.0, Ur Specific [place] 1.020, Urine Protein 2+, Urine Glucose (UA) 1+, Urine Ketones 3+, Urine Blood 1+, Urine Nitrate Negative, Urine Bilirubin 1+ A, Urine Urobilinogen 0.2, Ur Leukocyte Esterase 2+ A, Urine RBC 5-10, Urine WBC Tntc, Ur Squamous Epith Cells None, Urine Bacteria Trace 03/19/23 00:16: Troponin I 0.03 Orders (Tests/Meds): ED MEDICATIONS Generic Name Dose Route Start Last Admin Trade Name Freq PRN Reason Stop Dose Admin Fluconazole 200 mg 03/19/23 01:06 Fluconazole 200mg Tablet PO 03/19/23 01:07 ONCE ONE Discontinued Medications Generic Name Dose Route Start Last Admin Trade Name Freq PRN Reason Stop Dose Admin Lactated Ringer's 1,000 mls @ 999 mls/hr 03/18/23 22:30 03/18/23 22:38 Lactated Ringer's 1000 Ml Bag IV 03/18/23 23:30 999 mls/hr .Q1H1M ONE Administration Ondansetron HCl 4 mg 03/18/23 22:30 03/18/23 22:40 Ondansetron 4mg/2ml Vial IV 03/18/23 22:31 4 mg ONCE ONE Administration Potassium Chloride 40 meq 03/18/23 23:46 03/18/23 23:52 Potassium Chloride 20meq Tab PO 03/18/23 23:47 40 meq ONCE ONE Administration ORDERS Category Date Time Status Chest XR -- portable [XR chest portable] Stat Exams 03/18/23 22:15 Completed BNP [Brain Natriuretic Peptide] Stat Lab 03/18/23 22:08 Completed Complete Blood Count Auto Diff Stat Lab 03/18/23 22:08 Completed Comprehensive Metabolic Panel Stat Lab 03/18/23 22:08 Completed MG [Magnesium] Stat Lab 03/18/23 22:08 Completed Rapid PCR Covid and Flu A/B Stat Lab 03/18/23 22:24 Completed Troponin I Q3H Lab 03/19/23 00:16 Completed Troponin I Q3H Lab 03/19/23 04:15 Ordered Troponin I Stat Lab 03/18/23 22:08 Completed UA [Urinalysis and Microscopic] Stat Lab 03/18/23 23:59 Completed Urine Culture Stat Micro 03/18/23 23:59 Received ECG initial [place] Routine Y 03/18/23 22:02 Completed Medical Decision Narrative: In summary patient is a 82-year-old female with past medical history described above who presents emergency department for evaluation of syncope. Patient is hemodynamically stable and nontoxic-appearing upon arrival, afebrile. Patient's history is strongly consistent with vasovagal syncope however given recent admission for urinary tract infection and electrolyte abnormalities and YAMEL workup will be conducted with hematologic labs and EKG as differential includes hyperkalemia, YAMEL on CKD, among others. Initial workup reviewed by me, hematologic labs remarkable for mild hypokalemia which will be repleted orally, initial troponin is slightly elevated however downtrending from prior, viral swab negative. Serial troponin and repeat evaluation pending at time of transfer of care to the oncoming physician, Dr. Pedraza. Heart score 5 Keila VANCE: I assumed care of the patient at the time of handoff from the prior provider. On reassessment, patient reports symptomatic improvement. Repeat troponin is stable, within normal limits at 0.03. Patient has no chest pain and no syncope in ED. Urine studies obtained and appear consistent with prior with too numerous to count white blood cells and trace bacteria, nitrate negative. Patient has vulvovaginal candidiasis on exam. I reviewed the patient's prior urinalysis and urine culture results, her urinalysis appears stable from before on 03/11. Urine culture at that time showed mixed urogenital kathryn. She was discharged from the hospital on antibiotics taking them as prescribed. She reports that she currently has no burning with urination, pelvic pain, flank pain fever other symptoms of acute UTI. I gave the patient a dose of fluconazole for vulvovaginal candidiasis. I instructed her to continue taking her antibiotics as prescribed. Repeat urine culture will help elucidate whether or not patient is experiencing a new/recurrent/resistant urinary tract infection. She is asymptomatic at this time I do not think changing antibiotic regimen is necessarily indicated. Critical Care <John Rose MD - Last Filed: 03/19/23 00:31> Critical Care Time Critical Care Time: No
[2023-03-18 22:24] LABS: Basophils # 0.1 K/mm3 (0-0.2); Basophils % 0.4 % (0.1-2.0); Eosinophils % 0.3 % (0.1-12.0); Hemoglobin 12.4 g/dL (12.2-16.2); Lymphocytes % 16.2 % (10-50); Mean Corpuscular HGB Conc 33.5 g/dL (31.8-35.4); Mean Corpuscular Hemoglobin 29.9 pg (27.0-31.2); Mean Corpuscular Volume 89.4 fl (81-99); Mean Platelet Volume 7.8 fl (7.4-10.4); Monocytes # 0.5 K/mm3 (0.1-1.0); Monocytes % 4.2 % (1.7-9.3); Neutrophils # 9.7 K/mm3 (1.8-7.8); Neutrophils % 78.9 % (37.0-80.0); Platelet Count 362 K/mm3 (142-424); Red Blood Count 4.14 M/mm3 (4.20-5.40); Red Cell Distribution Width 15.2 % (11.5-17.5); White Blood Count 12.3 K/mm3 (4.8-10.8)
[2023-03-18 22:29] LABS: Coronavirus 19, PCR Not Detected (NotDetected); Influenza A, PCR Not Detected (NotDetected); Influenza B, PCR Not Detected (NotDetected)
[2023-03-18 22:30] VITALS: BP 112/56; PULSE 77; RESP 27; O2SAT 94
[2023-03-18 22:33] LABS: Alanine Aminotransferase 16 U/L (12-78); Albumin Level 3.4 g/dl (3.5-5.0); Alkaline Phosphatase 131 U/L (38-126); Anion Gap 15.1 mEq/L (5-15); Aspartate Amino Transferase 25 U/L (14-36); Bilirubin,Total 0.5 mg/dl (0.2-1.3); Blood Urea Nitrogen 9 mg/dl (7-17); Carbon Dioxide 24 mmol/L (22.0-30.0); Chloride 104 mmol/L (98-107); Creatinine Clearance Estimated 38 mL/min (50-200); Estimated Glomerular Filt Rate 48 ml/min (>60); GFR (African American) 58 ML/MIN (>60); Globulin 3.5 g/dL (1.3-3.2); Glucose 191 mg/dl (74-100); Potassium 3.1 mmoL/L (3.5-5.1); Sodium 140 mmol/L (136-145); Total Protein,Serum 6.9 g/dl (6.3-8.2)
[2023-03-18 22:34] LABS: Magnesium 1.8 mg/dl (1.6-2.3)
[2023-03-18] MEDS: LACTATED RINGERS 1000ML 1,000 ML 999 ML IV (22:38)
[2023-03-18] MEDS: ONDANSETRON 4MG/2ML VIAL 4 MG IV (22:40)
[2023-03-18 22:45] LABS: Troponin I 0.04 ng/ml (0.00-0.034)
[2023-03-18 23:00] VITALS: BP 114/45; PULSE 63; RESP 27; O2SAT 93
[2023-03-18 23:30] VITALS: BP 153/57; PULSE 71; RESP 12; O2SAT 95
[2023-03-18 23:36] LABS: NT Pro Brain Natriuretic Pep. 15000 pg/mL (0-450)
[2023-03-18] MEDS: POTASSIUM CHLORIDE 20MEQ TAB 40 MEQ PO (23:52)
[2023-03-19] VITALS: BP 157/64; PULSE 78; RESP 21; O2SAT 98
[2023-03-19 00:01] VITALS: BP 157/64; PULSE 74; RESP 14; O2SAT 97
[2023-03-19 00:14] LABS: Appearance,Urine CLOUDY (Clear); Blood, Urine 1+ (Negative); Color,Urine YELLOW (Yellow); Glucose,Urine (UA) 1+ (Negative); Ketones,Urine 3+ (Negative); Leukocyte Esterase,Urine 2+ (Negative); Microscopic, Urine URINE MICROSCOPIC (MICROSCOPIC); Nitrate,Urine Negative (Negative); Protein,Urine 2+ (Negative); Urobilinogen,Urine 0.2 EU/dl (0.2)
[2023-03-19 00:15] LABS: Bilirubin,Urine 1+ (Negative)
[2023-03-19 00:23] LABS: Bacteria,Urine Trace /lpf; WBC,Urine TNTC #/hpf (0-3)
[2023-03-19 00:31] VITALS: BP 121/42; PULSE 78; RESP 18; O2SAT 96
[2023-03-19 00:46] LABS: Troponin I 0.03 ng/ml (0.00-0.034)
[2023-03-19 01:00] VITALS: BP 146/75; PULSE 75; RESP 16; O2SAT 98
[2023-03-19] MEDS: FLUCONAZOLE 100MG TABLET 200 MG PO (01:22)
[2023-03-19 01:23] VITALS: BP 146/75; PULSE 75; RESP 13; TEMP 36.6; O2SAT 95
== END 2023-03-19 01:36 | disposition home or self-care (01) ==
PROVIDERS: Emergency Provider Emergency Medicine; PCP Family Medicine
DX: E87.6 Hypokalemia (principal); B37.31 Acute candidiasis of vulva and vagina; R55 Syncope and collapse; I13.0 Hypertensive heart and chronic kidney disease with heart failure and stage 1 through stage 4 chronic kidney disease, or unspecified chronic kidney disease; N18.9 Chronic kidney disease, unspecified; I50.9 Heart failure, unspecified; I25.10 Atherosclerotic heart disease of native coronary artery without angina pectoris; E78.5 Hyperlipidemia, unspecified; I25.2 Old myocardial infarction; I25.5 Ischemic cardiomyopathy; I44.7 Left bundle-branch block, unspecified
CPT/HCPCS: 71045; 80053; 81001; 83735; 83880; 84484; 85025; 87086; 87636; 93005; 96361; 96374; 99285; J2405

== ENCOUNTER 2023-03-23 09:58 | Outpatient (CLI) | payer MEDICARE, BC, SELFPAY ==
[2023-03-23 10:12] LABS: Basophils % 0.4 % (0.1-2.0); Eosinophils # 0.1 K/mm3 (0.0-0.4); Eosinophils % 2.1 % (0.1-12.0); Hematocrit 27.3 % (37.0-47.0); Hemoglobin 9.8 g/dL (12.2-16.2); Lymphocytes # 1.6 K/mm3 (0.7-4.5); Lymphocytes % 25.9 % (10-50); Mean Corpuscular HGB Conc 35.7 g/dL (31.8-35.4); Mean Corpuscular Hemoglobin 32.1 pg (27.0-31.2); Mean Corpuscular Volume 89.9 fl (81-99); Mean Platelet Volume 7.7 fl (7.4-10.4); Monocytes # 0.4 K/mm3 (0.1-1.0); Monocytes % 6.4 % (1.7-9.3); Neutrophils % 65.3 % (37.0-80.0); Platelet Count 251 K/mm3 (142-424); Red Blood Count 3.04 M/mm3 (4.20-5.40); Red Cell Distribution Width 15.9 % (11.5-17.5); White Blood Count 6.1 K/mm3 (4.8-10.8)
[2023-03-23 10:22] LABS: Anion Gap 7.1 mEq/L (5-15); Blood Urea Nitrogen 8 mg/dl (7-17); Calcium 7.8 mg/dl (8.4-10.2); Carbon Dioxide 33 mmol/L (22.0-30.0); Chloride 103 mmol/L (98-107); Estimated Glomerular Filt Rate 80 ml/min (>60); GFR (African American) 97 ML/MIN (>60); Glucose 88 mg/dl (74-100); Potassium 3.1 mmoL/L (3.5-5.1); Sodium 140 mmol/L (136-145)
== END 2023-03-23 23:59 ==
LOC: LAB.DROPOF 10:00
PROVIDERS: PCP Family Medicine; Visit Provider Family Medicine
DX: N17.8 Other acute kidney failure (principal)
CPT/HCPCS: 80048; 85025

== ENCOUNTER 2023-05-04 10:59 | Outpatient (CLI) | payer MEDICARE, BC, SELFPAY ==
--- NOTE | 2023-05-04 | CA_ITS ---
APPROVED REPORT EXAM: Limited 2D Echocardiogram Production Worker: Jennifer Jean-Baptiste CRT Ht: 5 ft 5 in Wt: 149lbs BSA: 1.75 BP: 138/72 mmHg Indications: EF check 02/02/23 25% on echo 2D Dimensions Left Atrium 3.62 cm LVEF (Severino's) 25.20 % LVOT 1.63 cm (M/F) 1.5-2.5 LV Volume 118.50 mL EF AP4 33.10 % EF AP2 15.3 % EF BP 25.2 % GL Strain -11.9 % M-Mode Dimensions RVDd 2.19 cm (0.9-2.6) LVDd 4.35 cm (3.5-5.7) Ao Diam 3.19 cm (2.0-3.7) LVDs 3.41 cm (3.5-5.7) IVSd 2.03 cm (0.6-1.1) PWd 0.88 cm (0.6-1.1) EF (Teich) 44.00% FS 21.60% EDV (Teich) 85.40 mL ESV (Teich) 47.80 mL Other Information Study Quality: Fair Conclusion This is a limited TTE to evaluate for LVEF. Limited windows were obtained. The left ventricle is normal in size. There is increased LV wall thickness. The anterior, anteroseptal, and septal LV pandya are nearly akinetic. LVEF is 25%. Compared to prior study from 01/2023, the LVEF overall appears unchanged. Electronically signed by : Nurys Gtz MD 05/04/2023 23:55:09
== END 2023-05-04 23:59 ==
LOC: RT 11:02
PROVIDERS: PCP Family Medicine; Visit Provider Internal Medicine
DX: I42.8 Other cardiomyopathies (principal); R94.31 Abnormal electrocardiogram [ECG] [EKG]
CPT/HCPCS: 93308

== ENCOUNTER 2023-07-18 14:59 | Inpatient (IN) | payer MEDICARE, BC, SELFPAY ==
[2023-07-18] VITALS (7 sets, daily range): BP systolic 98–130; BP diastolic 49–75; PULSE 67–113; RESP 13–22; TEMP 36.6–36.9; O2SAT 94–97; BMI 21.4; BMI 22.3
--- NOTE | 2023-07-18 14:53 | ECG_ITS ---
APPROVED REPORT Exam: Resting ECG HR:120 bpm ECG Measurements Heart Rate 120 AXES MO 142 P 76 QRSd 151 QRS 43 QT 368 T 146 QTc 439 Conclusion SINUS TACHYCARDIA LEFT BUNDLE BRANCH BLOCK [120+ ms QRS DURATION, 80+ ms Q/S IN V1/V2, 85+ ms R IN I/aVL/V5/V6] Electronically signed by : FAUSTINO KRUEGER, 07/19/2023 00:53:49
--- NOTE | 2023-07-18 15:37 | XR_ITS ---
PROCEDURE INFORMATION: Exam: XR Chest Exam date and time: 07/18/2023 3:44 PM Age: 83 years old Clinical indication: Cough; Additional info: Cough, ill-appearing TECHNIQUE: Imaging protocol: Radiologic exam of the chest. Views: 1 view. COMPARISON: CR XR CHEST PORTABLE 03/18/2023 10:21 PM FINDINGS: Lungs: Paucity of lung markings in the upper lung zones likely secondary to underlying emphysematous changes. Findings are stable from prior exam. No infiltrates or overt CHF. Stable small calcified granulomas right lung base. Pleural spaces: Unremarkable. No pleural effusion. No pneumothorax. Heart/Mediastinum: Unremarkable. No cardiomegaly. Bones/joints: Unremarkable for age. IMPRESSION: Stable chest. No active disease.
[2023-07-18 15:49] LABS: Basophils % 0.2 % (0.1-2.0); Eosinophils # 1.2 K/mm3 (0.0-0.4); Eosinophils % 6.9 % (0.1-12.0); Hematocrit 40.6 % (37.0-47.0); Hemoglobin 13.3 g/dL (12.2-16.2); Lymphocytes # 1.4 K/mm3 (0.7-4.5); Lymphocytes % 7.9 % (10-50); MANUAL DIFFERENTIAL MANUAL DIFFERENTIAL (MANUAL DIFF); Mean Corpuscular HGB Conc 32.7 g/dL (31.8-35.4); Mean Corpuscular Hemoglobin 26.9 pg (27.0-31.2); Mean Corpuscular Volume 82.3 fl (81-99); Mean Platelet Volume 7.3 fl (7.4-10.4); Monocytes # 0.7 K/mm3 (0.1-1.0); Monocytes % 3.8 % (1.7-9.3); Neutrophils # 13.9 K/mm3 (1.8-7.8); Neutrophils % 81.2 % (37.0-80.0); Platelet Count 480 K/mm3 (142-424); Red Blood Count 4.93 M/mm3 (4.20-5.40); White Blood Count 17.1 K/mm3 (4.8-10.8)
[2023-07-18 15:56] LABS: Alanine Aminotransferase 11 U/L (12-78); Albumin Level 3.6 g/dl (3.5-5.0); Albumin/Globulin Ratio 0.9 (1.1-1.8); Alkaline Phosphatase 98 U/L (38-126); Anion Gap 18.6 mEq/L (5-15); Aspartate Amino Transferase 19 U/L (14-36); Bilirubin,Total 0.8 mg/dl (0.2-1.3); Blood Urea Nitrogen 54 mg/dl (7-17); Calcium 9.2 mg/dl (8.4-10.2); Carbon Dioxide 35 mmol/L (22.0-30.0); Chloride 88 mmol/L (98-107); Creatinine Clearance Estimated 12 mL/min (50-200); Estimated Glomerular Filt Rate 14 ml/min (>60); GFR (African American) 17 ML/MIN (>60); Globulin 4.2 g/dL (1.3-3.2); Glucose 118 mg/dl (74-100); Potassium 3.6 mmoL/L (3.5-5.1); Sodium 138 mmol/L (136-145); Total Protein,Serum 7.8 g/dl (6.3-8.2)
[2023-07-18 15:57] LABS: Activated Partial Thrombo Time 25.9 seconds (22.8-30.6); INR 1.02 (0.9-1.1)
--- NOTE | 2023-07-18 15:57 | PC.NURSE ---
respiratory aware of vbg order
[2023-07-18 16:01] LABS: C-Reactive Protein 102.2 mg/L (0-4)
--- NOTE | 2023-07-18 16:02 | ED_ITS ---
Discharge Plan Disposition Patient Disposition: Admitted Condition: Good Clinical Impressions Clinical Impression: IV infiltrate, Pyelonephritis, Petechiae, Rash, Sepsis, Hypotension Discharge ED Provider: Janet Bergeron General Adult HPI General Chief complaint: Skin/Abscess/Foreign Body Stated complaint: SYNCOPE Time Seen by Provider: 07/18/23 15:01 Mode of Arrival: Ambulatory Source of Information: Patient Limitations: No Limitations Description of Symptoms (Recalled from ER Triage Doc. by RN): c/o rash t/o torso for 3 days, pt states she started new unknown medicine 5 days ago, pt reports that she was fine until she started with this mucus. History of Present Illness HPI narrative: This patient is an 83-year-old female with a history of hypertension and hyperlipidemia presenting to the emergency department for evaluation with concern for rash. Patient reports that about 5 days ago, she started having nasal congestion and mucus. She was feeling really ill, so she took Claritin-D. She had not taken this medication before. After taking the Claritin, she noted that she started developing a red itchy rash to her torso. Today, it started extending up into her neck and face, so she decided to come in. She has not had very much of an appetite at all and feels like she may be dehydrated as well. Overall, she states she is just very generally weak. No significant cough at this time, chest pain, shortness of breath, abdominal pain, vomiting, changes in bowel movements, changes in urine output, or other concerns. She lives at home with a full-time sitter as well as her . She denies any changes in medications or exposures otherwise. Related Data Home Medications Medication Instructions Recorded Confirmed amlodipine 5 mg tablet 5 mg PO DAILY 03/11/23 07/18/23 aspirin 81 mg chewable tablet 81 mg PO DAILY 03/11/23 07/18/23 atorvastatin 40 mg tablet 40 mg PO 03/11/23 07/18/23 carvedilol 3.125 mg tablet 3.125 mg PO BID 03/11/23 07/18/23 clopidogrel 75 mg tablet 75 mg PO DAILY 03/11/23 07/18/23 ropinirole 0.5 mg tablet 0.5 mg PO 03/11/23 07/18/23 spironolactone 25 mg tablet 25 mg PO DAILY 03/11/23 07/18/23 tramadol 50 mg tablet 50 mg PO QID PRN Pain 03/11/23 07/18/23 ondansetron 4 mg disintegrating 4 mg translingual Q8H PRN Nausea 03/12/23 07/18/23 tablet And Vomiting furosemide 40 mg tablet 40 mg PO DAILY 04/21/23 07/18/23 simvastatin 5 mg tablet 5 mg PO DAILY 04/21/23 07/18/23 trazodone 50 mg tablet 50 mg PO HS 04/21/23 07/18/23 potassium chloride 10 mEq 10 meq PO DAILY 05/07/23 07/18/23 tablet,extended release Previous Rx's Medication Instructions Recorded sacubitril 49 mg-valsartan 51 mg 1 tab PO BID #60 tabs 05/07/23 tablet (Entresto) Allergies Allergy/AdvReac Type Severity Reaction Status Date / Time promethazine Allergy Intermediate severe Verified 05/19/23 13:37 vomiting Penicillins Allergy Verified 05/19/23 13:36 Sulfa (Sulfonamide Allergy Verified 05/19/23 13:36 Antibiotics) triprolidine Allergy Verified 05/19/23 13:36 [facility]ID [facility] Disclaimer: The information contained in this section may have been updated after the patient was seen, as this information can be updated by other users. Medical History (Updated 07/18/23 @ 22:30 by Janet Bergeron DO) Coronary artery disease Ischemic cardiomyopathy ASCVD (arteriosclerotic cardiovascular disease) Systolic heart failure Cardiomyopathy CHF (congestive heart failure) HLD (hyperlipidemia) Hypertension Left bundle branch block (LBBB) determined by electrocardiography NSTEMI (non-ST elevated myocardial infarction) Surgical History (Updated 07/18/23 @ 20:21 by Soto Sorenson MD) History of cardiac cath S/P partial hysterectomy Family History Other No significant family history Social History (Updated 07/18/23 @ 19:33 by Kelle Jefferson RN) Smoking Status: Never smoker alcohol intake: never current occupational status: retired Travel in the last 8 weeks: None ROS Obtained: Yes All systems reviewed & no additional complaints except as documented Physical Exam General General appearance: alert Comment: Ill-appearing with dry mucous membranes Head Head exam: atraumatic and normocephalic Eye Eye exam: Present normal appearance, PERRL and EOMI ENT ENT exam: Present mucous membranes dry and normal external ear exam Neck Neck exam: Present normal inspection, full ROM and trachea midline; Absent tenderness Chest Chest inspection: Present normal inspection and symmetric chest wall rise; Absent tenderness Respiratory Respiratory exam: Present normal lung sounds bilaterally; Absent respiratory distress, wheezes, stridor or accessory muscle use Cardiovascular Cardiovascular exam: Present normal rhythm and tachycardia Abdominal Exam Abdominal exam: Present soft; Absent distention, tenderness, guarding or rebound Extremities Exam Extremities exam: Present normal inspection, full ROM and normal capillary refill; Absent tenderness or edema Back Exam Back exam: Present normal inspection and full ROM; Absent tenderness Neurological Exam Neurological exam: Present alert, oriented X3 and CN II-XII intact; Absent motor sensory deficit Psychiatric Psychiatric exam: Present normal affect and normal mood Skin Skin exam: Present warm, dry and rash (Erythematous blanching maculopapular rash to the torso with central convalescence. Extends up neck into face. Petechiae on upper extremities at site of IV attempts/BP cuff) Medical Decision Making Medical Records Medical records reviewed: Yes I reviewed the patient's medical records. Zbigniew Inquiry Pt receiving controlled substance: No Vital Signs: 07/18/23 14:59 07/18/23 15:30 07/18/23 16:00 Temperature 98.5 F Temperature Source Oral Pulse Rate 104 H 112 H Pulse Rate [Left Radial] 113 H Respiratory Rate 13 22 19 Blood Pressure 98/49 L Blood Pressure [Right Arm] 122/75 Blood Pressure Mean [Right Arm] 90 Blood Pressure Source Blood Pressure Source [Right Arm] Automatic Cuff Blood Pressure Position Blood Pressure Position [Right Arm] Sitting 02 Sat by Pulse Oximetry 97 97 97 Oxygen Delivery Method Room Air Room Air 07/18/23 17:30 07/18/23 18:35 Temperature 97.8 F Temperature Source Oral Pulse Rate 96 H 94 H Pulse Rate [Left Radial] Respiratory Rate 14 18 Blood Pressure 113/62 113/62 Blood Pressure [Right Arm] Blood Pressure Mean [Right Arm] Blood Pressure Source Automatic Cuff Blood Pressure Source [Right Arm] Blood Pressure Position Supine Blood Pressure Position [Right Arm] 02 Sat by Pulse Oximetry 95 Oxygen Delivery Method Room Air Lab Data Lab results reviewed: Yes I reviewed the patient's lab results. Lab Results 07/18/23 15:39: WBC 17.1 H, RBC 4.93, Hgb 13.3, Hct 40.6, MCV 82.3, MCH 26.9 L, MCHC 32.7, RDW 15.0, Plt Count 480 H, MPV 7.3 L, Neut % (Auto) 81.2 H, Lymph % (Auto) 7.9 L, Teller % (Auto) 3.8, Eos % (Auto) 6.9, Baso % (Auto) 0.2, Neut # (Auto) 13.9 H, Lymph # (Auto) 1.4, Teller # (Auto) 0.7, Eos # (Auto) 1.2 H, Baso # (Auto) 0.0, Total Counted 100, Neutrophils % (Manual) 79 H, Band Neutrophils % 1.0, Lymphocytes % (Manual) 14, Monocytes % (Manual) 4, Eosinophils % (Manual) 2, Platelet Estimate Slight increase, RBC Morphology Normal, ESR 59 H, PT 11.0, INR 1.02, APTT 25.9, Fibrinogen 812 H, D-Dimer 1.24 H, Sodium 138, Potassium 3.6, Chloride 88 L, Carbon Dioxide 35 H, Anion Gap 18.6 H, BUN 54 H, Creatinine 3.20 H, Estimated Creat Clear 12, Estimated GFR 14 L*, Est GFR ( Amer) 17 L*, Glucose 118 H, Calcium 9.2, Total Bilirubin 0.8, AST 19, ALT 11 L, Alkaline Phosphatase 98, C-Reactive Protein 102.2 H, NT-Pro-B Natriuret Pep 445, Total Protein 7.8, Albumin 3.6, Globulin 4.2 H, Albumin/Globulin Ratio 0.9 L, Procalcitonin 0.210 07/18/23 15:57: VBG pH 7.40, VBG pCO2 50.9, VBG pO2 44.6 H, VBG HCO3 31.0 H, VBG Total CO2 32.5 H, VBG O2 Saturation 78.1 H, VBG Base Excess 6.2 H, VBG Lactic Acid 3.2 H 07/18/23 16:15: Chlamy pneumoniae PCR Not detected, Adenovirus (PCR) Not detected, B. pertussis DNA (PCR) Not detected, Coronavirus OC43 (PCR) Not detected, Coronavirus HKU1 (PCR) Not detected, Coronavirus 229E (PCR) Not detected, SARS-CoV-2 (PCR) Not detected, Coronavirus NL63 (PCR) Not detected, Human Metapneumovir PCR Not detected, Influenza A (H1) PCR Not detected, Influ A (H1N1/09) PCR Not detected, Influenza A (H3) PCR Not detected, Influenza Type A (PCR) Not detected, Influenza Type B (PCR) Not detected, M. pneumoniae (PCR) Not detected, Parainfluenza 1 (PCR) Not detected, Parainfluenza 2 (PCR) Not detected, Parainfluenza 3 (PCR) Not detected, Parainfluenza 4 (PCR) Not detected, RSV (PCR) Not detected, Entero/Rhino (PCR) Not detected 07/18/23 16:20: Blood Type A Positive, Antibody Screen Negative 07/18/23 17:35: Urine Color Yellow, Urine Appearance Sl cloudy, Urine pH 6.0, Ur Specific Phelps 1.020, Urine Protein 1+, Urine Glucose (UA) Negative, Urine Ketones Negative, Urine Blood Trace-i, Urine Nitrate Negative, Urine Bilirubin 1+ A, Urine Urobilinogen 0.2, Ur Leukocyte Esterase 2+ A, Urine RBC Occasional, Urine WBC 10-20, Ur Squamous Epith Cells None, Urine Bacteria 1+ 07/18/23 15:39 07/18/23 15:39 Orders (Tests/Meds): ED MEDICATIONS Generic Name Dose Route Start Last Admin Trade Name Freq PRN Reason Stop Dose Admin Acetaminophen 1,000 mg 07/18/23 19:25 Acetaminophen 325mg Tab PO 08/17/23 19:24 Q4HP PRN Fever or Mild Pain (1-3) Hydrocodone Bitart/Acetaminophen 1 tab 07/18/23 19:25 Hydrocodone/Apap 5/325 Mg Tablet PO 08/17/23 19:24 Q4HP PRN Moderate Pain (4-6) Aspirin 81 mg 07/18/23 19:45 07/18/23 20:20 Aspirin 81mg Chewable Tablet PO 08/17/23 19:44 81 mg DAILY SHAINA Administration Atorvastatin Calcium 40 mg 07/18/23 21:00 07/18/23 20:20 Atorvastatin 40mg Tablet PO 08/17/23 20:59 40 mg HS SHAINA Administration Carvedilol 3.125 mg 07/18/23 21:00 07/18/23 20:20 Carvedilol 3.125mg Tablet PO 08/17/23 20:59 3.125 mg BID SHAINA Administration Clopidogrel Bisulfate 75 mg 07/18/23 19:45 07/18/23 20:20 Clopidogrel 75mg Tab PO 08/17/23 19:44 75 mg DAILY SHAINA Administration Furosemide 40 mg 07/18/23 19:45 07/18/23 20:20 Furosemide 40 Mg Tablet PO 08/17/23 19:44 40 mg DAILY SHAINA Administration Heparin Sodium (Porcine) 5,000 unit 07/18/23 19:30 07/18/23 20:19 Heparin Sodium 5,000 Unit/Ml Vial SQ 08/17/23 19:29 5,000 unit Q8H SHAINA Administration Hydroxyzine Pamoate 25 mg 07/18/23 19:58 07/18/23 20:20 Hydroxyzine Pamoate 25mg Capsule PO 08/17/23 19:57 25 mg Q6HP PRN Administration Itching Lactated Ringer's 1,000 mls @ 75 mls/hr 07/18/23 18:30 07/18/23 19:11 Lactated Ringer's 1000 Ml Bag IV 08/17/23 18:29 75 mls/hr .[id number] SHAINA Administration Meropenem 1 gm/ Sodium 100 mls @ 100 mls/hr 07/19/23 09:00 Chloride IV 07/29/23 08:59 DAILY SHAINA Protocol Miscellaneous 1 each 07/18/23 17:30 07/18/23 18:37 Vancomycin Consult Request NOTAPPLIC 08/17/23 17:29 1 each CONSULT PHARMACY SHAINA Administration Morphine Sulfate 4 mg 07/18/23 19:25 Morphine 4mg/Ml Syringe IV 08/17/23 19:24 Q4HP PRN Severe Pain (7-10) Ondansetron HCl 4 mg 07/18/23 19:25 Ondansetron 4mg/2ml Vial IV 08/17/23 19:24 Q8HP PRN Nausea Pantoprazole Sodium 40 mg 07/18/23 19:45 07/18/23 20:20 Pantoprazole 40mg Tablet PO 08/17/23 19:44 40 mg DAILY SHAINA Administration Polyethylene Glycol 17 gm 07/18/23 19:45 07/18/23 20:19 Polyethylene Glycol 3350 17 Gm Packet PO 08/17/23 19:44 17 gm DAILY SHAINA Administration Potassium Chloride 10 meq 07/18/23 19:45 07/18/23 20:21 Potassium Chloride 10meq Tablet.Er PO 08/17/23 19:44 Not Given DAILY SHAINA Prednisone 40 mg 07/18/23 20:00 07/18/23 20:25 Prednisone 20mg Tab PO 08/17/23 19:59 40 mg DAILY SHAINA Administration Ropinirole HCl 0.5 mg 07/18/23 21:00 07/18/23 20:23 Ropinirole Hcl 0.25 Mg Tablet PO 08/17/23 20:59 0.5 mg HS SHAINA Administration Senna/Docusate Sodium 1 tab 07/18/23 19:45 07/18/23 20:21 Sennosides 8.6mg/Docusate 50mg Tablet PO 08/17/23 19:44 1 tab DAILY SHAINA Administration Sodium Chloride 10 ml 07/18/23 19:33 Sodium Chloride 0.9% 10ml Flush Syringe IV 08/17/23 19:32 NEEDED PRN Maintain IV Site Trazodone HCl 50 mg 07/18/23 21:00 07/18/23 20:20 Trazodone 50mg Tablet PO 08/17/23 20:59 50 mg HS SHAINA Administration Discontinued Medications Generic Name Dose Route Start Last Admin Trade Name Freq PRN Reason Stop Dose Admin Lactated Ringer's 1,700 mls @ 850 mls/hr 07/18/23 15:37 07/18/23 16:04 Lactated Ringer's 1000 Ml Bag 30 ml/kg infuse over 2 hr (1700 ml) 07/18/23 17:36 850 mls/hr IV Administration .Q2H ONE Meropenem 1 gm/ Sodium 100 mls @ 100 mls/hr 07/18/23 17:24 07/18/23 18:19 Chloride IV 07/18/23 17:25 100 mls/hr ONCE ONE Administration Vancomycin HCl 1,000 mg/ 250 mls @ 125 mls/hr 07/18/23 17:45 07/18/23 18:38 Sodium Chloride IV 07/18/23 19:44 Not Given ONCE ONE Vancomycin HCl 1,000 mg/ 250 mls @ 125 mls/hr 07/18/23 20:00 07/18/23 20:21 Sodium Chloride IV 05/25/24 21:59 125 mls/hr ONCE ONE Administration ORDERS Category Date Time Status Type and Screen Stat BBK 07/18/23 16:[address] abdomen pelvis wo con Stat Cat Scan 07/18/23 16:[address] chest wo con Stat Cat Scan 07/18/23 16:11 Completed XR chest portable Stat Exams 07/18/23 15:37 Completed Activated Partial Thrombo Time Stat Lab 07/18/23 15:39 Completed C-Reactive Protein Stat Lab 07/18/23 15:39 Completed Complete Blood Count Auto Diff AMLAB Lab 07/19/23 06:00 Ordered Complete Blood Count Auto Diff Stat Lab 07/18/23 15:39 Completed Comprehensive Metabolic Panel AMLAB Lab 07/19/23 06:00 Ordered Comprehensive Metabolic Panel Stat Lab 07/18/23 15:39 Completed D-Dimer Stat Lab 07/18/23 15:39 Completed Erythrocyte Sedimentation Rate Stat Lab 07/18/23 15:39 Completed FDP, Plasma Stat Lab 07/18/23 15:39 Received Fibrinogen Stat Lab 07/18/23 15:39 Completed Full Resp Panel w/COVID ([facility]) Routine Lab 07/18/23 16:15 Completed Magnesium AMLAB Lab 07/19/23 06:00 Ordered Procalcitonin Stat Lab 07/18/23 15:39 Completed Prothrombin Time INR AMLAB Lab 07/19/23 06:00 Ordered Prothrombin Time INR Stat Lab 07/18/23 15:39 Completed Urinalysis and Microscopic Stat Lab 07/18/23 17:35 Completed Blood Culture Stat Micro 07/18/23 15:44 Received Urine Culture Stat Micro 07/18/23 17:35 Received Venous Blood Gas Stat RT 07/18/23 15:57 Completed ECG Data Tracing #1: I reviewed this ECG and interpreted as documented below: Sinus tachycardia with a ventricular rate of 120 bpm. Left bundle branch block noted. No acute ST changes concerning for ischemia. No significant changes from prior EKG ECG initial impression date: 07/18/23 ECG initial impression time: 14:59 Medical Decision Narrative: In summary, this patient is a 83-year-old female presenting to the Emergency Department for evaluation of rash in the setting of recent URI. Differential diagnoses considered include but are not limited to sepsis, ITP, DIC, viral exanthem, coagulopathy. Ruling out the most morbid conditions drove assessment. It should be noted patient's history includes hypertension, hyperlipidemia which may or may not be at goal therapy. This complicates all aspects of care by increasing patient's risk for morbidity. I reviewed patient's past medical records and noted previous evaluations with regards to YAMEL and candidiasis. On exam, the patient is ill-appearing with dry mucous membranes, petechial rash at the site of IV attempts, and erythematous maculopapular rash to her torso. She is slightly tachycardic, but otherwise vitals are stable. Workup included broad lab workup to screen for infections and coagulopathy. D-dimer was obtained for the purposes of screening for coagulopathic state such as DIC. Doubt PE, as the patient does not have chest pain, shortness of breath, tachycardia, or hypoxia. She was given a sepsis bolus of IV fluids given that she appears dry and ill. Unfortunately, some of her fluids infiltrated into her right arm, so new ultrasound IV was placed in the left arm by myself. Patient tolerated this well. Is a 20-gauge. Images were not saved. Fluid resuscitation was ongoing. She had dropped her pressures initially upon arrival with systolics in the 80s to 90s, however this improved significantly with systolics in the 1 teens on reassessment after fluid resuscitation. Labs demonstrated concerns for sepsis with leukocytosis, elevated lactic acid, elevated inflammatory markers, elevated D-dimer. She does not have concerns for DIC or ITP with normal platelet count and no significant coagulopathy. She does have significant YAMEL with creatinine up to 3.2 from normal baseline. Given her sepsis with unknown origin, cath urine was sent and CT chest, abdomen, and pelvis without IV contrast were obtained. I independently interpreted CT scans prior to the radiologist read and noted Durning for pyelonephritis. Please see their read for final interpretation. Urine came back concerning for infection. Patient has a penicillin allergy, so she was given IV vancomycin and meropenem with blood cultures and urine cultures pending. Ultimately given patient's sepsis with initial hypotension that resolved after fluids, UTI, and YAMEL, I feel that she would benefit from admission. I had and after discussion with the hospitalist who admitted the patient for further evaluation and management. Critical Care Critical Care Time Critical Care Time: Yes Attestation: On 07/18/23, the high probability of a clinically significant, sudden or life threatening deterioration of the following system(s) required my full and direct attention, intervention and personal management. The time I documented below is in addition to time spent performing reported procedures but includes the following listed in this critical care notation. Total Time Total Critical Care Time: 40
[2023-07-18 16:03] LABS: VBG Base Excess 6.2 mmol/L (-2.4-2.3); VBG Oxygen Saturation 78.1 % (50-70); VBG PO2 44.6 mmol/L (28-40); VBG Total CO2 32.5 mmol/L (23-27)
[2023-07-18] MEDS: LACTATED RINGERS 1000ML 1,700 ML 850 ML IV (16:04)
[2023-07-18 16:05] LABS: Lactate Venous 3.2 mmol/L (0.4-2.0); VBG PCO2 50.9 mmol/L (35-51)
--- NOTE | 2023-07-18 16:05 | PC.NURSE ---
VBG results called. aware
--- NOTE | 2023-07-18 16:11 | CT_ITS ---
PROCEDURE INFORMATION: Exam: CT Chest Without Contrast; Diagnostic Exam date and time: 07/18/2023 4:36 PM Age: 83 years old Clinical indication: Other: Sepsis; Additional info: Sepsis unknown origin, gavi TECHNIQUE: Imaging protocol: Diagnostic computed tomography of the chest without contrast. Radiation optimization: All CT scans at this facility use at least one of these dose optimization techniques: automated exposure control; mA and/or kV adjustment per patient size (includes targeted exams where dose is matched to clinical indication); or iterative reconstruction. COMPARISON: CR XR CHEST PORTABLE 07/18/2023 3:44 PM FINDINGS: Limitations: Study is technically limited due to motion artifact. Lungs: Minor platelike atelectasis left lung base and chronic calcified granulomas right lung base otherwise lung kinney are clear. Pleural spaces: Unremarkable. No pneumothorax. No pleural effusion. Heart: See Coronary arteries finding. Coronary arteries: Moderate calcification of coronary arteries. Evidence of coronary artery stent within the LAD. Heart is not enlarged. Small pericardial effusion. Lymph nodes: Unremarkable. No enlarged lymph nodes. Vasculature: Scattered atherosclerotic changes of the thoracic aorta with ectasia of the ascending aorta measuring 3.6 cm in diameter. Bones/joints: Mild scoliosis of the thoracic spine convex to the patient's right. Soft tissues: Unremarkable. IMPRESSION: No acute findings within the chest.
--- NOTE | 2023-07-18 16:11 | CT_ITS ---
PROCEDURE INFORMATION: Exam: CT Abdomen And Pelvis Without Contrast Exam date and time: 07/18/2023 4:38 PM Age: 83 years old Clinical indication: Other: Sepsis; Additional info: Sepsis unknown origin, gavi TECHNIQUE: Imaging protocol: Computed tomography of the abdomen and pelvis without contrast. Radiation optimization: All CT scans at this facility use at least one of these dose optimization techniques: automated exposure control; mA and/or kV adjustment per patient size (includes targeted exams where dose is matched to clinical indication); or iterative reconstruction. COMPARISON: CT CHEST WO CON 07/18/2023 4:36 PM FINDINGS: Lungs: Lung bases are clear. Liver: Normal. No mass. Gallbladder and bile ducts: Normal. No calcified stones. No ductal dilation. Pancreas: Normal. No ductal dilation. Spleen: There are scattered calcified granulomas within the spleen, longstanding, otherwise spleen is unremarkable. Adrenal glands: Normal. No mass. Kidneys and ureters: Left kidney is mildly atrophic and somewhat lobulated in contour. No masses detected. There is mild thickening involving the wall of the left renal collecting system extending from the left renal pelvis to the urinary bladder that may be chronic with infectious pyelitis to be excluded. Stomach and bowel: Right half of the large bowel is mildly distended with stool. Scattered diverticuli distal large bowel without evidence of acute diverticulitis. Appendix: No evidence of appendicitis. Intraperitoneal space: Unremarkable. No free air. No significant fluid collection. Vasculature: Scattered atherosclerotic changes of the abdominal aorta and iliac vessels. No aortic aneurysm. Lymph nodes: Unremarkable. No enlarged lymph nodes. Urinary bladder: Mild thickening of the bladder wall that should be correlated for possible cystitis. Reproductive: Uterus has been removed. There is a pessary device within the pelvic floor. Two abutting cysts within the right adnexa similar size largest which measures 2.8 cm. Bones/joints: Moderate degenerative endplate osteophytes lower lumbar spine. No acute bony abnormalities. Soft tissues: See Reproductive finding. IMPRESSION: 1. Mild thickening involving the wall left renal collecting system as well as the urinary bladder. Please correlate for possible cystitis and infectious pyelitis. 2. Two abutting cyst right adnexa presumed ovarian in origin largest which measures 2.8 cm. Follow-up nonemergent pelvic ultrasound exam recommended further assessment. 3. Colonic diverticulosis. No evidence of acute diverticulitis. 4. Additional chronic findings as above.
[2023-07-18 16:12] LABS: D-Dimer 1.24 ug/mL (0.0-0.5)
[2023-07-18 16:22] LABS: Eosinophils % 2 % (0-3); Lymphocytes % 14 % (10-50); Monocytes % 4 % (2-9); Neutrophils % 79 % (42-76); Platelet Estimate Slight Increase; RBC Morphology Normal; Total Cells Counted 100
[2023-07-18 16:23] LABS: Erythrocyte Sedimentation Rate 59 mm/hr (0-30)
[2023-07-18 16:29] LABS: Adenovirus,PCR Not Detected (NotDetected); Bordetella Pertussis Not Detected (NotDetected); Chlamydophila Pneumoniae, PCR Not Detected (NotDetected); Coronavirus 19, PCR Not Detected (NotDetected); Coronavirus 229E Not Detected (NotDetected); Coronavirus NL63 Not Detected (NotDetected); Coronavirus OC43 Not Detected (NotDetected); Coronovirus HKU1,PCR Not Detected (NotDetected); Human Metapneumovirus Not Detected (NotDetected); Influenza A, PCR Not Detected (NotDetected); Influenza AH1, 2009 Not Detected (NotDetected); Influenza AH1, PCR Not Detected (NotDetected); Influenza AH3,PCR Not Detected (NotDetected); Influenza B, PCR Not Detected (NotDetected); Mycoplasma Pneumoniae, PCR Not Detected (NotDetected); Parainfluenza 1, PCR Not Detected (NotDetected); Parainfluenza 2, PCR Not Detected (NotDetected); Parainfluenza 3, PCR Not Detected (NotDetected); Parainfluenza 4, PCR Not Detected (NotDetected); Respiratory Syncytial Virus Not Detected (NotDetected); Rhinovirus/Enterovirus Not Detected (NotDetected)
[2023-07-18 17:32] LABS: Fibrinogen 812 mg/dL (229.9-363.5)
[2023-07-18 17:36] LABS: Microscopic, Urine URINE MICROSCOPIC (MICROSCOPIC)
[2023-07-18 17:46] LABS: Appearance,Urine SL CLOUDY (Clear); Blood, Urine TRACE-I (Negative); Color,Urine YELLOW (Yellow); Glucose,Urine (UA) Negative (Negative); Ketones,Urine Negative (Negative); Leukocyte Esterase,Urine 2+ (Negative); Nitrate,Urine Negative (Negative); Protein,Urine 1+ (Negative); Urobilinogen,Urine 0.2 EU/dl (0.2)
[2023-07-18 17:47] LABS: Bilirubin,Urine 1+ (Negative)
--- NOTE | 2023-07-18 18:05 | PC.NURSE ---
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
[2023-07-18 18:06] LABS: Bacteria,Urine 1+ /lpf; RBC,Urine Occasional #/hpf (0-3)
[2023-07-18] MEDS: MEROPENEM 1 GM in 0.9 % SODIUM CHLORIDE 100 ML IV (18:19)
--- NOTE | 2023-07-18 18:35 | PC.NURSE ---
Report given to BRITTNI Wolf at this time
[2023-07-18] MEDS: VANCOMYCIN CONSULT REQUEST 1 EACH NOTAPPLIC (18:37)
[2023-07-18] MEDS: LACTATED RINGERS 1000ML 1,000 ML 75 ML IV (19:11)
--- NOTE | 2023-07-18 19:59 | P.HP_ITS ---
History of Present Illness *Admission Date: 07/18/23 *Reason for visit:: Dont feel Good *History of present illness: This is an 83-year-old female that presents to [facility] emergency department with concerns of weakness and rash over 3 days not improving with home Benadryl. She is accompanied by her sitter and . Her past medical history is significant for HFrE (EF 25% 04/2023), ischemic cardiomyopathy, CAD, hypertension and vaginal prolapse. She reports mark roximately 1 week ago she started experiencing nausea and vomiting with no diarrhea that resolved spontaneously. She reports associated nasal congestion and mucus for which she took [id number] decongestant. After taking the OTC medication she started experiencing a red rash to her torso that extended to her neck and face and not involving palms or soles or lower extremities. She describes the rash as itchy and hot but not burning. There has been no associated fever, chills, dyspnea or confusion. She reports decreased p.o. intake and identified uncontrolled blood pressure at home. In the ED she was tachycardic with leukocytoses and elevated inflammatory markers. Abdominal imaging identified left pyelonephritis, cystitis, left renal atrophy and constipation. She was started on broad-spectrum antibiotic therapy with gentle IV fluid resuscitation. [facility] Medical History (Updated 07/18/23 @ 20:21 by Soto Sorenson MD) Coronary artery disease Ischemic cardiomyopathy ASCVD (arteriosclerotic cardiovascular disease) Systolic heart failure Cardiomyopathy CHF (congestive heart failure) HLD (hyperlipidemia) Hypertension Left bundle branch block (LBBB) determined by electrocardiography NSTEMI (non-ST elevated myocardial infarction) Surgical History (Updated 07/18/23 @ 20:21 by Soto Sorenson MD) History of cardiac cath S/P partial hysterectomy Family History Other No significant family history Social History (Updated 07/18/23 @ 19:33 by Kelle Jefferson RN) Smoking Status: Never smoker alcohol intake: never current occupational status: retired Travel in the last 8 weeks: None Review of Systems Review of Systems Review of systems:: pertinent systems reviewed and negative unless documented below Meds Home Medications and Allergies Home Medications Medication Instructions Recorded Confirmed Type amlodipine 5 mg tablet 5 mg PO DAILY 03/11/23 07/18/23 History aspirin 81 mg chewable tablet 81 mg PO DAILY 03/11/23 07/18/23 History atorvastatin 40 mg tablet 40 mg PO HS 03/11/23 07/18/23 History carvedilol 3.125 mg tablet 3.125 mg PO BID 03/11/23 07/18/23 History clopidogrel 75 mg tablet 75 mg PO DAILY 03/11/23 07/18/23 History ropinirole 0.5 mg tablet 0.5 mg PO HS 03/11/23 07/18/23 History spironolactone 25 mg tablet 25 mg PO DAILY 03/11/23 07/18/23 History tramadol 50 mg tablet 50 mg PO QID PRN Pain 03/11/23 07/18/23 History ondansetron 4 mg disintegrating 4 mg translingual Q8H PRN Nausea 03/12/23 07/18/23 History tablet And Vomiting furosemide 40 mg tablet 40 mg PO DAILY 04/21/23 07/18/23 History simvastatin 5 mg tablet 5 mg PO DAILY 04/21/23 07/18/23 History trazodone 50 mg tablet 50 mg PO HS 04/21/23 07/18/23 History potassium chloride 10 mEq 10 meq PO DAILY 05/07/23 07/18/23 History tablet,extended release sacubitril 49 mg-valsartan 51 mg 1 tab PO BID #60 tabs 05/07/23 07/18/23 Rx tablet (Entresto) New Prescriptions to Start Prescriptions: Allergies Allergy/AdvReac Type Severity Reaction Status Date / Time promethazine Allergy Intermediate severe Verified 05/19/23 13:37 vomiting Penicillins Allergy Verified 05/19/23 13:36 Sulfa (Sulfonamide Allergy Verified 05/19/23 13:36 Antibiotics) triprolidine Allergy Verified 05/19/23 13:36 Exam Data for Last 24 hours Vital signs and Labs for Last 24 Hours: Temp Pulse Resp BP Pulse Ox O2 Del Method 97.8 F 88 19 118/61 94 L Room Air 07/18/23 19:30 07/18/23 19:30 07/18/23 19:30 07/18/23 19:30 07/18/23 19:30 07/18/23 19:30 Laboratory Results - last 24 hr 07/18/23 15:39: WBC 17.1 H, RBC 4.93, Hgb 13.3, Hct 40.6, MCV 82.3, MCH 26.9 L, MCHC 32.7, RDW 15.0, Plt Count 480 H, MPV 7.3 L, Neut % (Auto) 81.2 H, Lymph % (Auto) 7.9 L, [place] % (Auto) 3.8, Eos % (Auto) 6.9, Baso % (Auto) 0.2, Neut # (Auto) 13.9 H, Lymph # (Auto) 1.4, [place] # (Auto) 0.7, Eos # (Auto) 1.2 H, Baso # (Auto) 0.0, Total Counted 100, Neutrophils % (Manual) 79 H, Band Neutrophils % 1.0, Lymphocytes % (Manual) 14, Monocytes % (Manual) 4, Eosinophils % (Manual) 2, Platelet Estimate Slight increase, RBC Morphology Normal, ESR 59 H, PT 11.0, INR 1.02, APTT 25.9, Fibrinogen 812 H, D-Dimer 1.24 H, Sodium 138, Potassium 3.6, Chloride 88 L, Carbon Dioxide 35 H, Anion Gap 18.6 H, BUN 54 H, Creatinine 3.20 H, Estimated Creat Clear 12, Estimated GFR 14 L*, Est GFR ( Amer) 17 L*, Glucose 118 H, Calcium 9.2, Total Bilirubin 0.8, AST 19, ALT 11 L, Alkaline Phosphatase 98, C-Reactive Protein 102.2 H, Total Protein 7.8, Albumin 3.6, Globulin 4.2 H, Albumin/Globulin Ratio 0.9 L, Procalcitonin 0.210 07/18/23 15:57: VBG pH 7.40, VBG pCO2 50.9, VBG pO2 44.6 H, VBG HCO3 31.0 H, VBG Total CO2 32.5 H, VBG O2 Saturation 78.1 H, VBG Base Excess 6.2 H, VBG Lactic Acid 3.2 H 07/18/23 16:15: Chlamy pneumoniae PCR Not detected, Adenovirus (PCR) Not detected, B. pertussis DNA (PCR) Not detected, Coronavirus OC43 (PCR) Not detected, Coronavirus HKU1 (PCR) Not detected, Coronavirus 229E (PCR) Not detected, SARS-CoV-2 (PCR) Not detected, Coronavirus NL63 (PCR) Not detected, Human Metapneumovir PCR Not detected, Influenza A (H1) PCR Not detected, Influ A (H1N1/09) PCR Not detected, Influenza A (H3) PCR Not detected, Influenza Type A (PCR) Not detected, Influenza Type B (PCR) Not detected, M. pneumoniae (PCR) Not detected, Parainfluenza 1 (PCR) Not detected, Parainfluenza 2 (PCR) Not detected, Parainfluenza 3 (PCR) Not detected, Parainfluenza 4 (PCR) Not detected, RSV (PCR) Not detected, Entero/Rhino (PCR) Not detected 07/18/23 16:20: Blood Type A Positive, Antibody Screen Negative 07/18/23 17:35: Urine Color Yellow, Urine Appearance Sl cloudy, Urine pH 6.0, Ur Specific [place] 1.020, Urine Protein 1+, Urine Glucose (UA) Negative, Urine Ketones Negative, Urine Blood Trace-i, Urine Nitrate Negative, Urine Bilirubin 1+ A, Urine Urobilinogen 0.2, Ur Leukocyte Esterase 2+ A, Urine RBC Occasional, Urine WBC 10-20, Ur Squamous Epith Cells None, Urine Bacteria 1+ I & O for Last 24 hours: Intake & Output 07/15/23 07/16/23 07/17/23 07/18/23 23:59 23:59 23:59 23:59 Weight 58.995 kg Constitutional Constitutional: no acute distress, chronically ill appearing and cooperative *Routine HEENT Exam Head: Present normocephalic and atraumatic Eye: Present EOMI and PERRL ENT: Present mucous membranes dry; Absent dentition normal *Routine Neck Exam Neck: Present supple; Absent JVD or lymphadenopathy *Routine Respiratory Exam Respiratory: Present rhonchi, normal respiratory effort and able to speak in complete sentences *Routine Cardiovascular Exam Cardiovascular: Present RRR and murmur; Absent JVD *Routine Abdominal Exam Abdominal: Present soft and normoactive bowel sounds; Absent tenderness *Routine Rectal Exam Rectal:: deferred *Routine Genitalia Exam Genitalia:: deferred *Routine Extremities Exam Extremities: Present full ROM, pulses intact and normal capillary refill; Absent edema *Routine Skin Exam Skin: Present intact and rash *Routine Neurological Exam Neurological: Present alert, oriented X3, moving all extremities, vision grossly intact, hearing grossly intact and normal speech; Absent sensory deficit or motor deficit Routine Psychiatric Exam Psychiatric: Present normal affect, normal thought process, cooperative, good insight and good judgment Assessment and Plan *Assessment and plan (1) Severe sepsis with acute organ dysfunction: Status: Acute Category: Medical Code(s): A41.9 - Sepsis, unspecified organism; R65.20 - Severe sepsis without septic shock (2) YAMEL (acute kidney injury): Status: Resolved Category: Medical Code(s): N17.9 - Acute kidney failure, unspecified (3) Pyelonephritis: Status: Acute Category: Medical Code(s): N12 - Tubulo-interstitial nephritis, not specified as acute or chronic (4) Cystitis: Status: Acute Category: Medical Code(s): N30.90 - Cystitis, unspecified without hematuria (5) Chronic HFrEF (heart failure with reduced ejection fraction): Status: Acute Category: Medical Code(s): I50.22 - Chronic systolic (congestive) heart failure (6) Ischemic cardiomyopathy: Status: Acute Category: Medical Code(s): I25.5 - Ischemic cardiomyopathy (7) Coronary artery disease: Status: Acute Qualifiers: Coronary Disease-Associated Artery/Lesion type: [place] artery [place] vs. transplanted heart: [place] heart Associated angina: without angina Qualified Code(s): I25.10 - Atherosclerotic heart disease of [place] coronary artery without angina pectoris Category: Medical Code(s): I25.10 - Atherosclerotic heart disease of [place] coronary artery without angina pectoris (8) Uterine prolapse: Status: Acute Category: Medical Code(s): N81.4 - Uterovaginal prolapse, unspecified (9) Pessary maintenance: Status: Acute Category: Medical Code(s): Z46.89 - Encounter for fitting and adjustment of other specified devices (10) Adnexal cyst: Status: Acute Category: Medical Code(s): N94.9 - Unspecified condition associated with female genital organs and menstrual cycle Plan This is an 83-year-old female who experienced nausea and vomiting with HFrEF therapy and decreased p.o. intake. She subsequently developed an erythematous pruritic rash with no desquamation, IV antibiotic therapy or identified insect exposure. She presented to the ED with sepsis identification and rise in creatinine from 0.7 to 3.2. Imaging was concerning for left pyelonephritis and cystitis. Cultures were acquired, she received gentle fluid resuscitation and was started on IV antibiotic therapy. Problems addressed as follows: Severe sepsis with acute organ dysfunction, present on admission Tachycardia, tachypnea, leukocytoses, elevated inflammatory markers and source identified Left pyelonephritis Cystitis Acute UTI Telemetry monitoring Blood cultures pending Urine culture pending CT abdomen and pelvis with left renal atrophy and pyelonephritis Gentle IV fluid resuscitation with reduced ejection fraction Accurate I's and O's Trending labs and inflammatory markers IV Merrem IV vancomycin Drug therapy requiring intensive monitoring for toxicity Routine peak and trough Chronic HFrEF Ischemic cardiomyopathy Coronary artery disease Left heart cath with stent to LAD (02/02/2023) Accurate I's and O's Sodium and fluid restriction Routine weights Intermittent proBNP evaluations CTA chest with no acute cardiopulmonary disease Echo (05/04/2023): EF 25% Trending electrolytes, magnesium Reduced dose loop diuretic therapy Beta-kat therapy Holding ARNI therapy Deferring SGLT2 therapy secondary to YAMEL and UTI Holding aldosterone antagonist therapy Antiplatelet therapy P2 Y12 inhibitor therapy Statin therapy Acute kidney injury Baseline creatinine 0.7 Gentle IV fluid resuscitation Trending electrolytes and creatinine Avoiding NSAIDs Caution with ACC guided medication therapy Uterine prolapse Pessary in place Right adnexa cyst 2.8 cm Recent outpatient gynecology evaluation noted Continue outpatient gynecology evaluations Consideration for pelvic ultrasound VTE prophylaxis: Heparin CODE STATUS: Full code POA: [place]- The length of stay for this patient will be 2 midnights or greater due to above diagnoses.
[2023-07-18 20:05] LABS: Reflex Lactic Add Lactic Reflex
[2023-07-18 20:12] LABS: NT Pro Brain Natriuretic Pep. 445 pg/mL (0-450)
[2023-07-18] MEDS: HEPARIN SODIUM 5,000 UNIT/ML VIAL 5000 UNIT SQ (20:19)
[2023-07-18] MEDS: POLYETHYLENE GLYCOL 3350 17 GM PACKET PO (20:19)
[2023-07-18] MEDS: FUROSEMIDE 40 MG TABLET PO (20:20)
[2023-07-18] MEDS: hydrOXYzine pamoate 25MG CAPSULE 25 MG PO (20:20)
[2023-07-18] MEDS: PANTOPRAZOLE 40MG TABLET 40 MG PO (20:20)
[2023-07-18] MEDS: ATORVASTATIN 40MG TABLET 40 MG PO (20:20)
[2023-07-18] MEDS: CLOPIDOGREL 75MG TAB 75 MG PO (20:20)
[2023-07-18] MEDS: CARVEDILOL 3.125MG TABLET 3.125 MG PO (20:20)
[2023-07-18] MEDS: ASPIRIN 81MG CHEWABLE TABLET 81 MG PO (20:20)
[2023-07-18] MEDS: TRAZODONE 50MG TABLET 50 MG PO (20:20)
[2023-07-18] MEDS: SENNOSIDES 8.6MG/DOCUSATE 50MG TABLET 1 TAB PO (20:21)
[2023-07-18] MEDS: VANCOMYCIN HCL 1,000 MG in 0.9 % SODIUM CHLORIDE 250 ML 125 MG IV (20:21)
[2023-07-18] MEDS: ROPINIROLE HCL 0.25 MG TABLET 0.5 MG PO (20:23)
[2023-07-18] MEDS: predniSONE 20MG TAB 40 MG PO (20:25)
[2023-07-19] MEDS: hydrOXYzine pamoate 25MG CAPSULE 25 MG PO ×3 (03:08→22:12)
[2023-07-19] MEDS: HEPARIN SODIUM 5,000 UNIT/ML VIAL 5000 UNIT SQ ×3 (03:08→20:35)
[2023-07-19 04:00] VITALS: BP 111/44; PULSE 66; RESP 14; TEMP 36.6; O2SAT 96; BMI 22.1
--- NOTE | 2023-07-19 05:00 | PC.NURSE ---
Patient has had a restless night. Has been able to sleep off and on but due to her itching it has been hard. PRN medication works a little but not well. Patient states it is not getting much better. Rash is still blanchable from her groin up. The patient was wearing a brief but that was hurting her so we took it off and patient has been voiding into the raman. Patient is on RA and remains AxO no other issues.
[2023-07-19 07:57] VITALS: BP 143/62; PULSE 69; RESP 18; TEMP 36.6; O2SAT 92
--- NOTE | 2023-07-19 08:24 | EXP.PHA.CONS ---
Pharmacy Consult Date: 07/19/23 Time: 08:24 Referring provider: DR. MENDEZ Reason for Consult:: VANCOMYCIN DOSING Allergies Allergy/AdvReac Type Severity Reaction Status Date / Time promethazine Allergy Intermediate severe Verified 05/19/23 13:37 vomiting Penicillins Allergy Verified 05/19/23 13:36 Sulfa (Sulfonamide Allergy Verified 05/19/23 13:36 Antibiotics) triprolidine Allergy Verified 05/19/23 13:36 Home Medications Medication Instructions Recorded Confirmed Type amlodipine 5 mg tablet 5 mg PO DAILY 03/11/23 07/18/23 History aspirin 81 mg chewable tablet 81 mg PO DAILY 03/11/23 07/18/23 History atorvastatin 40 mg tablet 40 mg PO HS 03/11/23 07/18/23 History carvedilol 3.125 mg tablet 3.125 mg PO BID 03/11/23 07/18/23 History clopidogrel 75 mg tablet 75 mg PO DAILY 03/11/23 07/18/23 History ropinirole 0.5 mg tablet 0.5 mg PO HS 03/11/23 07/18/23 History spironolactone 25 mg tablet 25 mg PO DAILY 03/11/23 07/18/23 History tramadol 50 mg tablet 50 mg PO QID PRN Pain 03/11/23 07/18/23 History ondansetron 4 mg disintegrating 4 mg translingual Q8H PRN Nausea 03/12/23 07/18/23 History tablet And Vomiting furosemide 40 mg tablet 40 mg PO DAILY 04/21/23 07/18/23 History simvastatin 5 mg tablet 5 mg PO DAILY 04/21/23 07/18/23 History trazodone 50 mg tablet 50 mg PO HS 04/21/23 07/18/23 History potassium chloride 10 mEq 10 meq PO DAILY 05/07/23 07/18/23 History tablet,extended release sacubitril 49 mg-valsartan 51 mg 1 tab PO BID #60 tabs 05/07/23 07/18/23 Rx tablet (Entresto) New Prescriptions to Start Prescriptions: Height: 1.63 m Weight: 58.995 kg Laboratory Results:: Laboratory Results - last 24 hr 07/18/23 15:39: WBC 17.1 H, RBC 4.93, Hgb 13.3, Hct 40.6, MCV 82.3, MCH 26.9 L, MCHC 32.7, RDW 15.0, Plt Count 480 H, MPV 7.3 L, Neut % (Auto) 81.2 H, Lymph % (Auto) 7.9 L, [place] % (Auto) 3.8, Eos % (Auto) 6.9, Baso % (Auto) 0.2, Neut # (Auto) 13.9 H, Lymph # (Auto) 1.4, [place] # (Auto) 0.7, Eos # (Auto) 1.2 H, Baso # (Auto) 0.0, Total Counted 100, Neutrophils % (Manual) 79 H, Band Neutrophils % 1.0, Lymphocytes % (Manual) 14, Monocytes % (Manual) 4, Eosinophils % (Manual) 2, Platelet Estimate Slight increase, RBC Morphology Normal, ESR 59 H, PT 11.0, INR 1.02, APTT 25.9, Fibrinogen 812 H, D-Dimer 1.24 H, Sodium 138, Potassium 3.6, Chloride 88 L, Carbon Dioxide 35 H, Anion Gap 18.6 H, BUN 54 H, Creatinine 3.20 H, Estimated Creat Clear 12, Estimated GFR 14 L*, Est GFR ( Amer) 17 L*, Glucose 118 H, Calcium 9.2, Total Bilirubin 0.8, AST 19, ALT 11 L, Alkaline Phosphatase 98, C-Reactive Protein 102.2 H, NT-Pro-B Natriuret Pep 445, Total Protein 7.8, Albumin 3.6, Globulin 4.2 H, Albumin/Globulin Ratio 0.9 L, Procalcitonin 0.210 07/18/23 15:57: VBG pH 7.40, VBG pCO2 50.9, VBG pO2 44.6 H, VBG HCO3 31.0 H, VBG Total CO2 32.5 H, VBG O2 Saturation 78.1 H, VBG Base Excess 6.2 H, VBG Lactic Acid 3.2 H 07/18/23 16:15: Chlamy pneumoniae PCR Not detected, Adenovirus (PCR) Not detected, B. pertussis DNA (PCR) Not detected, Coronavirus OC43 (PCR) Not detected, Coronavirus HKU1 (PCR) Not detected, Coronavirus 229E (PCR) Not detected, SARS-CoV-2 (PCR) Not detected, Coronavirus NL63 (PCR) Not detected, Human Metapneumovir PCR Not detected, Influenza A (H1) PCR Not detected, Influ A (H1N1/09) PCR Not detected, Influenza A (H3) PCR Not detected, Influenza Type A (PCR) Not detected, Influenza Type B (PCR) Not detected, M. pneumoniae (PCR) Not detected, Parainfluenza 1 (PCR) Not detected, Parainfluenza 2 (PCR) Not detected, Parainfluenza 3 (PCR) Not detected, Parainfluenza 4 (PCR) Not detected, RSV (PCR) Not detected, Entero/Rhino (PCR) Not detected 07/18/23 16:20: Blood Type A Positive, Antibody Screen Negative 07/18/23 17:35: Urine Color Yellow, Urine Appearance Sl cloudy, Urine pH 6.0, Ur Specific [place] 1.020, Urine Protein 1+, Urine Glucose (UA) Negative, Urine Ketones Negative, Urine Blood Trace-i, Urine Nitrate Negative, Urine Bilirubin 1+ A, Urine Urobilinogen 0.2, Ur Leukocyte Esterase 2+ A, Urine RBC Occasional, Urine WBC 10-20, Ur Squamous Epith Cells None, Urine Bacteria 1+ 07/18/23 20:30: Lactate 2.0 Medical History: Medical History (Updated 07/18/23 @ 22:30 by Janet Bergeron DO) Coronary artery disease Ischemic cardiomyopathy ASCVD (arteriosclerotic cardiovascular disease) Systolic heart failure Cardiomyopathy CHF (congestive heart failure) HLD (hyperlipidemia) Hypertension Left bundle branch block (LBBB) determined by electrocardiography NSTEMI (non-ST elevated myocardial infarction) Assessment and Plan Assessment and plan all Dx Assessment and Plan for all problems:: Pharmacokinetic dosing service Objective: Patient: Floor: Age: 83 yo Serum creatinine: 3.20 mg/dL Height: 64.2 Inches Weight (kg): 58.9 Assessment: IBW (kg): 55.16 Dosing wt(kg): 58.9 Estimated Creatinine clearance (ml/min): 11.6 CRCL method: Cockcroft and Gault using ibw(default). Drug selected: Vancomycin Loading dose (mg): Vd (liters): 47.1 (factor used: 0.8 L/kg) Obed (hr-1): 0.014 Half life (hrs): 49.51 CLvanco=?? 0.659 L/hr Recommended dose: 1000 mg Interval: 72 hrs Infusion time (hrs): 2.0 Predicted peak (mcg/mL): 33.0 Predicted trough (mcg/mL): 12.39 Total body weight is being used for vancomycin dosing. Recommendations: Give Vancomycin 1000 mg q 72 hrs with an expected Cpeak of 33.0 mcg/ml and an expected Ctrough of 12.39 mcg/ml AUC 0-24 /NATHALIE Data: NATHALIE 0.5 mcg/mL:?? AUC/NATHALIE:? 1011.6 NATHALIE 1.0 mcg/mL:?? AUC/NATHALIE:? 505.8 --------- NATHALIE 1.5 mcg/mL:?? AUC/NATHALIE:? 337.2 NATHALIE 2.0 mcg/mL:?? AUC/NATHALIE:? 252.9 Thank you for the consult, will continue to follow. -KRISTEN HORNE, BENNYD
--- NOTE | 2023-07-19 08:28 | P.PN_ITS ---
Subjective *Date: 07/19/23 *Time: 14:01 Interval history: Patient feels itchy all over. Has prominent rash over torso. No worse than on admission. Denies any nausea or vomiting. Stable on room air. Afebrile. Tolerating p.o. intake. Medical Exam Vital signs and Labs for Last 24 Hours: Vital Signs Temp Pulse Pulse Resp BP BP Pulse Ox 07/19/23 07:57 97.8 F 69 18 143/62 H 92 L 07/19/23 06:53 07/19/23 05:00 07/19/23 04:00 97.8 F 66 14 111/44 L 96 07/19/23 03:00 07/19/23 01:00 07/18/23 23:48 97.8 F 67 16 130/73 97 07/18/23 23:00 07/18/23 21:00 07/18/23 20:00 07/18/23 19:30 97.8 F 88 19 118/61 94 L 07/18/23 19:00 07/18/23 18:35 97.8 F 94 H 18 113/62 07/18/23 17:30 96 H 14 113/62 95 07/18/23 16:00 112 H 19 98/49 L 97 07/18/23 15:30 104 H 22 97 07/18/23 14:59 98.5 F 113 H 13 122/75 97 O2 Del Method 07/19/23 07:57 Room Air 07/19/23 06:53 Room Air 07/19/23 05:00 Room Air 07/19/23 04:00 Room Air 07/19/23 03:00 Room Air 07/19/23 01:00 Room Air 07/18/23 23:48 Room Air 07/18/23 23:00 Room Air 07/18/23 21:00 Room Air 07/18/23 20:00 Room Air 07/18/23 19:30 Room Air 07/18/23 19:00 Room Air 07/18/23 18:35 Room Air 07/18/23 17:30 07/18/23 16:00 Room Air 07/18/23 15:30 07/18/23 14:59 Room Air Intake and Output 07/18/23 07/19/23 07/19/23 23:59 07:59 15:59 Intake Total 235 / 235 Output Total 0 / 0 Balance Intake: Intake, Oral Amount Output: Output, Urine Amount 0 / 0 Other: Number of Unmeasured Voids 2 Weight 58.995 kg 58.995 kg 58.995 kg Patient Weight 07/19/23 23:59 Weight 58.995 kg Laboratory Results - last 24 hr 07/18/23 15:39: WBC 17.1 H, RBC 4.93, Hgb 13.3, Hct 40.6, MCV 82.3, MCH 26.9 L, MCHC 32.7, RDW 15.0, Plt Count 480 H, MPV 7.3 L, Neut % (Auto) 81.2 H, Lymph % (Auto) 7.9 L, [place] % (Auto) 3.8, Eos % (Auto) 6.9, Baso % (Auto) 0.2, Neut # (Auto) 13.9 H, Lymph # (Auto) 1.4, [place] # (Auto) 0.7, Eos # (Auto) 1.2 H, Baso # (Auto) 0.0, Total Counted 100, Neutrophils % (Manual) 79 H, Band Neutrophils % 1.0, Lymphocytes % (Manual) 14, Monocytes % (Manual) 4, Eosinophils % (Manual) 2, Platelet Estimate Slight increase, RBC Morphology Normal, ESR 59 H, PT 11.0, INR 1.02, APTT 25.9, Fibrinogen 812 H, D-Dimer 1.24 H, Sodium 138, Potassium 3.6, Chloride 88 L, Carbon Dioxide 35 H, Anion Gap 18.6 H, BUN 54 H, Creatinine 3.20 H, Estimated Creat Clear 12, Estimated GFR 14 L*, Est GFR ( Amer) 17 L*, Glucose 118 H, Calcium 9.2, Total Bilirubin 0.8, AST 19, ALT 11 L, Alkaline Phosphatase 98, C-Reactive Protein 102.2 H, NT-Pro-B Natriuret Pep 445, Total Protein 7.8, Albumin 3.6, Globulin 4.2 H, Albumin/Globulin Ratio 0.9 L, Procalcitonin 0.210 07/18/23 15:57: VBG pH 7.40, VBG pCO2 50.9, VBG pO2 44.6 H, VBG HCO3 31.0 H, VBG Total CO2 32.5 H, VBG O2 Saturation 78.1 H, VBG Base Excess 6.2 H, VBG Lactic Acid 3.2 H 07/18/23 16:15: Chlamy pneumoniae PCR Not detected, Adenovirus (PCR) Not detected, B. pertussis DNA (PCR) Not detected, Coronavirus OC43 (PCR) Not detected, Coronavirus HKU1 (PCR) Not detected, Coronavirus 229E (PCR) Not detected, SARS-CoV-2 (PCR) Not detected, Coronavirus NL63 (PCR) Not detected, Human Metapneumovir PCR Not detected, Influenza A (H1) PCR Not detected, Influ A (H1N1/09) PCR Not detected, Influenza A (H3) PCR Not detected, Influenza Type A (PCR) Not detected, Influenza Type B (PCR) Not detected, M. pneumoniae (PCR) Not detected, Parainfluenza 1 (PCR) Not detected, Parainfluenza 2 (PCR) Not detected, Parainfluenza 3 (PCR) Not detected, Parainfluenza 4 (PCR) Not detected, RSV (PCR) Not detected, Entero/Rhino (PCR) Not detected 07/18/23 16:20: Blood Type A Positive, Antibody Screen Negative 07/18/23 17:35: Urine Color Yellow, Urine Appearance Sl cloudy, Urine pH 6.0, Ur Specific [place] 1.020, Urine Protein 1+, Urine Glucose (UA) Negative, Urine Ketones Negative, Urine Blood Trace-i, Urine Nitrate Negative, Urine Bilirubin 1+ A, Urine Urobilinogen 0.2, Ur Leukocyte Esterase 2+ A, Urine RBC Occasional, Urine WBC 10-20, Ur Squamous Epith Cells None, Urine Bacteria 1+ 07/18/23 20:30: Lactate 2.0 I & O for Labs for Last 24 Hours: Intake & Output 07/16/23 07/17/23 07/18/23 07/19/23 23:59 23:59 23:59 23:59 Intake Total / 235 Output Total 0 / 0 Balance / 235 Weight 58.995 kg 58.995 kg Constitutional: Present no acute distress, average body habitus, chronically ill appearing and cooperative Head: Present atraumatic and normocephalic ENT: Present normal exam Neck: Present normal inspection Respiratory: Present normal respiratory effort; Absent rhonchi, wheezes or crackles Cardiac: Present Reg Rate and Rhythm GI: Present soft and normal bowel sounds; Absent distention or tenderness (female): Present deferred Extremities: Present normal inspection and full ROM; Absent edema Comment:: Petechial lesions on upper extremities with bruising at sites of attempted IVs Skin: Present intact and rash (Diffuse blanching macular rash over torso. Pruritic in nature); Absent erythema Neuro: Present Grossly Intact, alert, awake, oriented x 3 and moves all extremities Assessment and Plan *Assessment and plan (1) Severe sepsis with acute organ dysfunction: Status: Acute Category: Medical Code(s): A41.9 - Sepsis, unspecified organism; R65.20 - Severe sepsis without septic shock (2) YAMEL (acute kidney injury): Status: Resolved Category: Medical Code(s): N17.9 - Acute kidney failure, unspecified (3) Pyelonephritis: Status: Acute Category: Medical Code(s): N12 - Tubulo-interstitial nephritis, not specified as acute or chronic (4) Cystitis: Status: Acute Category: Medical Code(s): N30.90 - Cystitis, unspecified without hematuria (5) Chronic HFrEF (heart failure with reduced ejection fraction): Status: Acute Category: Medical Code(s): I50.22 - Chronic systolic (congestive) heart failure (6) Ischemic cardiomyopathy: Status: Acute Category: Medical Code(s): I25.5 - Ischemic cardiomyopathy (7) Coronary artery disease: Status: Acute Qualifiers: Associated angina: without angina Coronary Disease-Associated Artery/Lesion type: [place] artery [place] vs. transplanted heart: [place] heart Qualified Code(s): I25.10 - Atherosclerotic heart disease of [place] coronary artery without angina pectoris Category: Medical Code(s): I25.10 - Atherosclerotic heart disease of [place] coronary artery without angina pectoris (8) Uterine prolapse: Status: Acute Category: Medical Code(s): N81.4 - Uterovaginal prolapse, unspecified (9) Pessary maintenance: Status: Acute Category: Medical Code(s): Z46.89 - Encounter for fitting and adjustment of other specified devices (10) Adnexal cyst: Status: Acute Category: Medical Code(s): N94.9 - Unspecified condition associated with female genital organs and menstrual cycle Plan This is an 83-year-old female who experienced nausea and vomiting with HFrEF therapy and decreased p.o. intake. She subsequently developed an erythematous pruritic rash with no desquamation, IV antibiotic therapy or identified insect exposure. She presented to the ED with sepsis identification and rise in creatinine from 0.7 to 3.2. Imaging was concerning for left pyelonephritis and cystitis. Cultures were acquired, she received gentle fluid resuscitation and was started on IV antibiotic therapy. Continues to require inpatient management. Kidney function showing some trend for the better, still awaiting urine cultures. Prominent rash that is unchanged since admission. Problems addressed as follows: Severe sepsis with acute organ dysfunction, present on admission Tachycardia, tachypnea, leukocytoses, elevated inflammatory markers and source identified Left pyelonephritis Cystitis Acute UTI Blood culture and urine cultures pending Continue meropenem and vancomycin due to patient's allergies and for broad- spectrum antibiotic coverage in the setting of sepsis and pyelonephritis Tolerating p.o. intake, discontinue IV fluids Drug therapy requiring intensive monitoring for toxicity CRP elevated on admission to 102, ESR 59. Repeat inflammatory markers ordered for the morning White cell count improved to 10.4. Repeat CBC, CMP, magnesium ordered for the morning Rash: Concern for drug eruption, viral exanthem, vasculitis secondary to sepsis. Will continue symptomatic treatment with hydroxyzine every 6 hours as needed and prednisone 40 mg daily. Initiating topical Benadryl cream. Maculopapular in character. Low concern for DIC with her petechiae that appeared after tourniquet for IV or blood draw. Workup for DIC was unremarkable with normal coagulation studies. INR 1.1 today. Chronic HFrEF Ischemic cardiomyopathy Coronary artery disease Left heart cath with stent to LAD (02/02/2023) Accurate I's and O's Echo (05/04/2023): EF 25% Continue aspirin 81 mg daily, Plavix 75 mg daily, discontinue loop diuretic in the setting of YAMEL and rash (sulfa allergy) Continue carvedilol 3.125 mg twice daily, continue Lipitor 40 mg nightly Acute kidney injury Baseline creatinine 0.7 Creatinine 3.2 on admission with BUN of 54, improved to 2.2 and 46 respectively this morning. avoiding NSAIDs Caution with ACC guided medication therapy Uterine prolapse Pessary in place Right adnexa cyst 2.8 cm Recent outpatient gynecology evaluation noted Continue outpatient gynecology evaluations Consideration for nonemergent pelvic ultrasound Continue ropinirole 0.5 mg nightly for restless leg Continue Klonopin 0.5 mg nightly as needed for sleep VTE prophylaxis: Heparin CODE STATUS: Full code POA: [place]- The length of stay for this patient will be 2 midnights or greater due to above diagnoses.
[2023-07-19 08:32] LABS: Eosinophils # 0.2 K/mm3 (0.0-0.4); Lymphocytes # 0.8 K/mm3 (0.7-4.5); Mean Platelet Volume 7.4 fl (7.4-10.4); Monocytes # 0.2 K/mm3 (0.1-1.0)
[2023-07-19 08:35] LABS: Chloride 97 mmol/L (98-107); Potassium 3.5 mmoL/L (3.5-5.1); Sodium 137 mmol/L (136-145)
[2023-07-19 08:38] LABS: Alanine Aminotransferase 10 U/L (12-78); Albumin Level 2.9 g/dl (3.5-5.0); Albumin/Globulin Ratio 0.9 (1.1-1.8); Alkaline Phosphatase 76 U/L (38-126); Anion Gap 12.5 mEq/L (5-15); Aspartate Amino Transferase 18 U/L (14-36); Bilirubin,Total 0.6 mg/dl (0.2-1.3); Blood Urea Nitrogen 46 mg/dl (7-17); Calcium 8.6 mg/dl (8.4-10.2); Carbon Dioxide 31 mmol/L (22.0-30.0); Creatinine Clearance Estimated 18 mL/min (50-200); Estimated Glomerular Filt Rate 21 ml/min (>60); GFR (African American) 26 ML/MIN (>60); Globulin 3.4 g/dL (1.3-3.2); Glucose 161 mg/dl (74-100); Total Protein,Serum 6.3 g/dl (6.3-8.2)
[2023-07-19 08:41] LABS: INR 1.11 (0.9-1.1); Prothrombin Time 11.9 seconds (10.1-12.5)
[2023-07-19 08:47] LABS: Basophils % 0.2 % (0.1-2.0); Eosinophils % 1.5 % (0.1-12.0); Hematocrit 32.7 % (37.0-47.0); Lymphocytes % 7.8 % (10-50); Mean Corpuscular HGB Conc 32.3 g/dL (31.8-35.4); Mean Corpuscular Hemoglobin 26.4 pg (27.0-31.2); Mean Corpuscular Volume 81.8 fl (81-99); Monocytes % 2.1 % (1.7-9.3); Neutrophils # 9.2 K/mm3 (1.8-7.8); Neutrophils % 88.4 % (37.0-80.0); Platelet Count 331 K/mm3 (142-424); Red Blood Count 3.99 M/mm3 (4.20-5.40); Red Cell Distribution Width 15.2 % (11.5-17.5); White Blood Count 10.4 K/mm3 (4.8-10.8)
[2023-07-19 08:52] LABS: Hemoglobin 10.5 g/dL (12.2-16.2)
[2023-07-19 08:54] LABS: MANUAL DIFFERENTIAL MANUAL DIFFERENTIAL (MANUAL DIFF)
--- NOTE | 2023-07-19 09:22 | PC.NURSE ---
All documentation and care provided by Micheline SHAW was completed under my direct supervision. Shikha Caldwell RN
[2023-07-19] MEDS: FUROSEMIDE 40 MG TABLET PO (09:26)
[2023-07-19] MEDS: SENNOSIDES 8.6MG/DOCUSATE 50MG TABLET 1 TAB PO (09:26)
[2023-07-19] MEDS: ASPIRIN 81MG CHEWABLE TABLET 81 MG PO (09:26)
[2023-07-19] MEDS: PANTOPRAZOLE 40MG TABLET 40 MG PO (09:26)
[2023-07-19] MEDS: POTASSIUM CHLORIDE 10MEQ TABLET.ER 10 MEQ PO (09:26)
[2023-07-19] MEDS: CLOPIDOGREL 75MG TAB 75 MG PO (09:27)
[2023-07-19] MEDS: MEROPENEM 1 GM in 0.9 % SODIUM CHLORIDE 100 ML IV ×2 (09:27→20:36)
[2023-07-19] MEDS: POLYETHYLENE GLYCOL 3350 17 GM PACKET PO (09:27)
[2023-07-19] MEDS: CARVEDILOL 3.125MG TABLET 3.125 MG PO ×2 (09:27→20:35)
[2023-07-19] MEDS: predniSONE 20MG TAB 40 MG PO (09:27)
[2023-07-19] MEDS: DIPHENHYDRAMINE 2% CREAM 28GM TP (09:28)
--- NOTE | 2023-07-19 09:51 | HMH.PHAINT1 ---
Pharmacy Intervention Comments: MEDICATION RECONCILIATION COMPLETED ON PATIENT USING EXTERNAL FILL HISTORY FROM PHARMACY AND CARMELA REPORT. -KRISTEN HORNE, BENNYD
--- OUTSIDE RECORDS SUMMARY | 2023-07-19 10:01 | XMS_ITS | Patient Health Record ---
Author Name Unknown Organization [facility] Billing Info Address [address] [place] [id number] Care Team Providers Care [employer] Name Role Phone JENIFER JAMES Unavailable [phone] Reason For Referral No Information Social History Tobacco Use: Social History Observation Description Date Smoking Status WARNING: Information temporarily unavailable Tobacco Status: Question Answer Notes Patient is a never smoker Encounters Encounter Location Date Provider Diagnosis [id number] [address] [place] [id number] 02/18/2023 JENIFER JAMES Plan Of Treatment No Information Insurance Providers Payer Name Payer Address Payer Phone Subscriber Number Group Number Insured Name Patient Relationship to Insured Coverage Start Date Coverage End Date [employer] NON-HMO [address] [place], [place] [id number] Barbara Hopkins Self - patient is the insured MEDICARE [place] PART B [address] [place], [place] [id number] Barbara Hopkins Self - patient is the insured
[2023-07-19] MEDS: LACTATED RINGERS 1000ML 1,000 ML 75 ML IV ×2 (10:47→20:35)
[2023-07-19 11:40] LABS: Lymphocytes % 7 % (10-50); Neutrophils % 93 % (42-76); Total Cells Counted 100
[2023-07-19 11:42] LABS: Hypochromasia 1+; Microcytosis 1+; Platelet Estimate Normal
[2023-07-19 12:00] VITALS: BP 124/52; PULSE 60; RESP 16; TEMP 36.6; O2SAT 93
[2023-07-19 16:00] VITALS: BP 136/65; PULSE 67; RESP 16; TEMP 36.5; O2SAT 90
[2023-07-19] MEDS: HYDROCODONE/APAP 5/325 MG TABLET 1 TAB PO (16:06)
--- NOTE | 2023-07-19 16:13 | PC.NURSE ---
A&Ox3. Inspiratory wheezes in right lower lobe of lung. 2+ pulses throughout. Pt c/o itching due to rash and c/o restless leg pain, medication provided for itching and pain. Pt up to bedside chair for meals with and caregiver at bedside. Pt urinating yellow urine via purewick. Rash still noted to trunk of body.
[2023-07-19 19:32] VITALS: BP 114/60; PULSE 67; RESP 16; TEMP 36.6; O2SAT 94
[2023-07-19] MEDS: ATORVASTATIN 40MG TABLET 40 MG PO (20:35)
[2023-07-19] MEDS: ROPINIROLE HCL 0.25 MG TABLET 0.5 MG PO (20:35)
[2023-07-19 22:00] VITALS: BMI 22.1
[2023-07-19] MEDS: clonazePAM 0.5MG TABLET 0.5 MG PO (22:13)
[2023-07-20] VITALS: BP 102/51; PULSE 69; RESP 17; TEMP 36.6; O2SAT 98
[2023-07-20 04:00] VITALS: BP 124/62; PULSE 56; RESP 17; TEMP 36.6; O2SAT 91; BMI 22.6
[2023-07-20] MEDS: HEPARIN SODIUM 5,000 UNIT/ML VIAL 5000 UNIT SQ (04:07)
--- NOTE | 2023-07-20 05:15 | PC.NURSE ---
Jennifernet has not been as restless this shift/ Patient has been able to sleep. Was restless early in the night and did pull out her IV in the L upper arm. New IV placed in the R hand. Patient has been incontinent x2 this shift requiring a full bed change. Bed bath was done this shift.
[2023-07-20 06:41] LABS: Lymphocytes # 1.5 K/mm3 (0.7-4.5); Mean Corpuscular Hemoglobin 26.6 pg (27.0-31.2); Monocytes # 0.6 K/mm3 (0.1-1.0); Red Blood Count 3.39 M/mm3 (4.20-5.40)
[2023-07-20 06:47] LABS: Alanine Aminotransferase 9 U/L (12-78); Albumin Level 2.7 g/dl (3.5-5.0); Albumin/Globulin Ratio 0.9 (1.1-1.8); Alkaline Phosphatase 71 U/L (38-126); Aspartate Amino Transferase 15 U/L (14-36); Bilirubin,Total 0.4 mg/dl (0.2-1.3); Blood Urea Nitrogen 41 mg/dl (7-17); Calcium 8.2 mg/dl (8.4-10.2); Carbon Dioxide 36 mmol/L (22.0-30.0); Chloride 100 mmol/L (98-107); Creatinine Clearance Estimated 31 mL/min (50-200); Estimated Glomerular Filt Rate 39 ml/min (>60); GFR (African American) 47 ML/MIN (>60); Globulin 3.1 g/dL (1.3-3.2); Glucose 123 mg/dl (74-100); Magnesium 1.9 mg/dl (1.6-2.3); Sodium 140 mmol/L (136-145); Total Protein,Serum 5.8 g/dl (6.3-8.2)
[2023-07-20 06:53] LABS: Basophils % 0.2 % (0.1-2.0); C-Reactive Protein 42.3 mg/L (0-4); Eosinophils # 0.3 K/mm3 (0.0-0.4); Eosinophils % 2.4 % (0.1-12.0); Hematocrit 27.4 % (37.0-47.0); Lymphocytes % 13.6 % (10-50); Mean Corpuscular HGB Conc 32.9 g/dL (31.8-35.4); Mean Corpuscular Volume 80.7 fl (81-99); Mean Platelet Volume 7.2 fl (7.4-10.4); Monocytes % 5.5 % (1.7-9.3); Neutrophils # 8.4 K/mm3 (1.8-7.8); Neutrophils % 78.3 % (37.0-80.0); Platelet Count 298 K/mm3 (142-424); Red Cell Distribution Width 15.5 % (11.5-17.5); White Blood Count 10.7 K/mm3 (4.8-10.8)
[2023-07-20 08:00] VITALS: BP 115/49; PULSE 66; RESP 16; TEMP 36.7; O2SAT 93
[2023-07-20 08:04] LABS: Erythrocyte Sedimentation Rate 22 mm/hr (0-30)
[2023-07-20] MEDS: MINERAL OIL ENEMA 133ML 133 ML RC (08:16)
[2023-07-20] MEDS: CLOPIDOGREL 75MG TAB 75 MG PO (09:47)
[2023-07-20] MEDS: CARVEDILOL 3.125MG TABLET 3.125 MG PO (09:47)
[2023-07-20] MEDS: ASPIRIN 81MG CHEWABLE TABLET 81 MG PO (09:47)
[2023-07-20] MEDS: MEROPENEM 1 GM in 0.9 % SODIUM CHLORIDE 100 ML IV (09:47)
[2023-07-20] MEDS: PANTOPRAZOLE 40MG TABLET 40 MG PO (09:47)
[2023-07-20] MEDS: POTASSIUM CHLORIDE 10MEQ TABLET.ER 10 MEQ PO (09:48)
[2023-07-20] MEDS: SENNOSIDES 8.6MG/DOCUSATE 50MG TABLET 1 TAB PO (09:48)
[2023-07-20] MEDS: predniSONE 20MG TAB 40 MG PO (09:48)
[2023-07-20] MEDS: POLYETHYLENE GLYCOL 3350 17 GM PACKET PO (09:48)
--- NOTE | 2023-07-20 11:37 | EXP.DC.SUM ---
General Admission date:: 07/18/23 Discharge date: 07/20/23 HPI HPI HPI: This is an 83-year-old female that presents to [facility] emergency department with concerns of weakness and rash over 3 days not improving with home Benadryl. She is accompanied by her sitter and . Her past medical history is significant for HFrEF (EF 25% 04/2023), ischemic cardiomyopathy, CAD, hypertension and vaginal prolapse. She reports approximately 1 week ago she started experiencing nausea and vomiting with no diarrhea that resolved spontaneously. She reports associated nasal congestion and mucus for which she took [id number] decongestant. After taking the OTC medication she started experiencing a red rash to her torso that extended to her neck and face and not involving palms or soles or lower extremities. She describes the rash as itchy and hot but not burning. There has been no associated fever, chills, dyspnea or confusion. She reports decreased p.o. intake and identified uncontrolled blood pressure at home. In the ED she was tachycardic with leukocytoses and elevated inflammatory markers. Abdominal imaging identified left pyelonephritis, cystitis, left renal atrophy and constipation. She was started on broad-spectrum antibiotic therapy with gentle IV fluid resuscitation. Hospital Course Hospital Course Hospital Course: This is an 83-year-old female who experienced nausea and vomiting with HFrEF therapy and decreased p.o. intake. She subsequently developed an erythematous pruritic rash with no desquamation, IV antibiotic therapy or identified insect exposure. She presented to the ED with sepsis identification and rise in creatinine from 0.7 to 3.2. Imaging was concerning for left pyelonephritis and cystitis. Cultures were acquired, she received gentle fluid resuscitation and was started on IV antibiotic therapy. Patient showed improvement during admission. White cell count normalized. Rash improved. Will transition oral antibiotics to complete treatment for infection. Stable to discharge home with home health to continue care. Problems addressed as follows: Severe sepsis with acute organ dysfunction, present on admission Tachycardia, tachypnea, leukocytoses, elevated inflammatory markers and source identified Left pyelonephritis Cystitis Acute UTI Blood culture and urine cultures obtained during admission. Was initiated on meropenem and vancomycin due to patient's allergies and need for broad-spectrum antibiotic coverage in the setting of sepsis and pyelonephritis. Symptoms defervesced. No fever for over 24 hours. CRP was elevated to 102 and improved to 42 by day of discharge. Given improvement in white count, tolerance of p.o. intake, transition to oral Levaquin to complete empiric course. Urine culture still pending at discharge. Rash: Concern for drug eruption, viral exanthem, vasculitis secondary to sepsis. Treated with hydroxyzine and prednisone during admission. Initiated on topical Benadryl. Some improvement during admission. Given maculopapular character, suspect drug eruption, viral exanthem. Low concern for DIC. Workup for DIC was unremarkable with normal coagulation studies. INR 1.1 during admission. Platelets remained within the normal range at 298 on day of discharge. Hemoglobin of 10. White cell count improved to 10.7. CRP showed improvement to 42. No pruritus on day of discharge. Rash showing improvement. Chronic HFrEF Ischemic cardiomyopathy Coronary artery disease Left heart cath with stent to LAD (02/02/2023). Monitored accurate output during admission. Echo 05/04/2023 with EF of 25%. Continue aspirin 81 mg daily, Plavix 75 mg daily, discontinue loop diuretic in the setting of YAMEL and rash (sulfa allergy). Continue carvedilol 3.125 mg twice daily, continue Lipitor 40 mg nightly. Doing well at discharge. Needs close follow-up with PCP to evaluate reinitiation of medications Acute kidney injury Baseline creatinine 0.7. Creatinine 3.2 on admission with BUN of 54, improved to 1.3 and 41 respectively on day of discharge. Recommend avoiding NSAIDs. Trending to baseline Uterine prolapse Pessary in place Right adnexa cyst 2.8 cm Recent outpatient gynecology evaluation noted. Continue outpatient gynecology evaluations. Consideration for nonemergent pelvic ultrasound Continue ropinirole 0.5 mg nightly for restless leg Continue Klonopin 0.5 mg nightly as needed for sleep Total time spent on discharge 35 minutes in counseling, documentation, chart review, and direct care with patient. Exam Data for Last 24 hours Vital signs and Labs for Last 24 Hours: Temp Pulse Resp BP Pulse Ox O2 Del Method 98.1 F 66 16 115/49 L 93 L Room Air 07/20/23 08:00 07/20/23 08:00 07/20/23 08:00 07/20/23 08:00 07/20/23 08:00 07/20/23 11:00 Laboratory Results - last 24 hr 07/19/23 08:22: Total Counted 100, Neutrophils % (Manual) 93 H, Lymphocytes % (Manual) 7 L, Platelet Estimate Normal, Hypochromasia 1+, Microcytosis 1+ 07/20/23 05:39: WBC 10.7, RBC 3.39 L, Hgb 9.0 L D, Hct 27.4 L, MCV 80.7 L, MCH 26.6 L, MCHC 32.9, RDW 15.5, Plt Count 298, MPV 7.2 L, Neut % (Auto) 78.3, Lymph % (Auto) 13.6, [place] % (Auto) 5.5, Eos % (Auto) 2.4, Baso % (Auto) 0.2, Neut # (Auto) 8.4 H, Lymph # (Auto) 1.5, [place] # (Auto) 0.6, Eos # (Auto) 0.3, Baso # (Auto) 0.0, ESR 22, Sodium 140, Potassium 3.0 L, Chloride 100, Carbon Dioxide 36 H, Anion Gap 7.0, BUN 41 H, Creatinine 1.30 H D, Estimated Creat Clear 31, Estimated GFR 39 L, Est GFR ( Amer) 47 L D, Glucose 123 H D, Calcium 8.2 L, Magnesium 1.9, Total Bilirubin 0.4, AST 15, ALT 9 L, Alkaline Phosphatase 71, C-Reactive Protein 42.3 H D, Total Protein 5.8 L, Albumin 2.7 L, Globulin 3.1, Albumin/Globulin Ratio 0.9 L I & O for Last 24 hours: Intake & Output 07/17/23 07/18/23 07/19/23 07/20/23 23:59 23:59 23:59 23:59 Intake Total 2706 / 3056 830 / 830 Output Total 100 / 100 0 / 0 Balance 2606 / 2956 830 / 830 Weight 58.995 kg 58.99 kg 60.01 kg Microbiology Reports for the Last 24 Hours: Microbiology 07/18/23 15:44 Blood Blood Culture - Preliminary NO GROWTH AFTER 24 HOURS 07/18/23 15:39 Blood Blood Culture - Preliminary NO GROWTH AFTER 24 HOURS Constitutional Constitutional: no acute distress, average body habitus, chronically ill appearing and cooperative *Routine HEENT Exam Head: Present normocephalic Eye: Present EOMI and PERRL ENT: Present mucous membranes moist *Routine Neck Exam Neck: Present supple; Absent lymphadenopathy *Routine Respiratory Exam Respiratory: Present CTA bilaterally; Absent rhonchi, wheezes or crackles *Routine Cardiovascular Exam Cardiovascular: Present RRR and murmur *Routine Abdominal Exam Abdominal: Present soft and normoactive bowel sounds; Absent tenderness *Routine Rectal Exam Patient deferred: visual exam *Routine Exam Patient deferred: external exam *Routine Extremities Exam Extremities: Present edema; Absent cyanosis or clubbing *Routine Skin Exam Skin: Present dry and warm; Absent rash Comments: Interval improved rash over torso, macular rash more or less resolved. Still has some petechial lesions noted on extremities but these are improving. Denies pruritus *Routine Neurological Exam Neurological: Present alert, oriented X3 and moving all extremities; Absent altered mental status Results Data Completed and Pending Labs on day of discharge: Labs from last 24 hours 07/20/23 07/19/23 05:39 08:22 WBC 10.7 RBC 3.39 L Hgb 9.0 L D Hct 27.4 L MCV 80.7 L MCH 26.6 L MCHC 32.9 RDW 15.5 Plt Count 298 MPV 7.2 L Neut % (Auto) 78.3 Lymph % (Auto) 13.6 [place] % (Auto) 5.5 Eos % (Auto) 2.4 Baso % (Auto) 0.2 Neut # (Auto) 8.4 H Lymph # (Auto) 1.5 [place] # (Auto) 0.6 Eos # (Auto) 0.3 Baso # (Auto) 0.0 Total Counted 100 Neutrophils % (Manual) 93 H Lymphocytes % (Manual) 7 L Platelet Estimate Normal Hypochromasia 1+ Microcytosis 1+ ESR 22 Sodium 140 Potassium 3.0 L Chloride 100 Carbon Dioxide 36 H Anion Gap 7.0 BUN 41 H Creatinine 1.30 H D Estimated Creat Clear 31 Estimated GFR 39 L Est GFR ( Amer) 47 L D Glucose 123 H D Calcium 8.2 L Magnesium 1.9 Total Bilirubin 0.4 AST 15 ALT 9 L Alkaline Phosphatase 71 C-Reactive Protein 42.3 H D Total Protein 5.8 L Albumin 2.7 L Globulin 3.1 Albumin/Globulin Ratio 0.9 L Preliminary micro results at discharge 07/18/23 15:44 Blood Culture - Preliminary Blood NO GROWTH AFTER 24 HOURS 07/18/23 15:39 Blood Culture - Preliminary Blood NO GROWTH AFTER 24 HOURS DS: Diagnosis Discharge Diagnosis (1) Severe sepsis with acute organ dysfunction: Status: Acute Code(s): A41.9 - Sepsis, unspecified organism; R65.20 - Severe sepsis without septic shock (2) YAMEL (acute kidney injury): Status: Resolved Code(s): N17.9 - Acute kidney failure, unspecified (3) Pyelonephritis: Status: Acute Code(s): N12 - Tubulo-interstitial nephritis, not specified as acute or chronic (4) Cystitis: Status: Acute Code(s): N30.90 - Cystitis, unspecified without hematuria (5) Chronic HFrEF (heart failure with reduced ejection fraction): Status: Acute Code(s): I50.22 - Chronic systolic (congestive) heart failure (6) Ischemic cardiomyopathy: Status: Acute Code(s): I25.5 - Ischemic cardiomyopathy (7) Coronary artery disease: Status: Acute Code(s): I25.10 - Atherosclerotic heart disease of [place] coronary artery without angina pectoris Qualifiers: Associated angina: without angina Coronary Disease-Associated Artery/Lesion type: [place] artery [place] vs. transplanted heart: [place] heart Qualified Code(s): I25.10 - Atherosclerotic heart disease of [place] coronary artery without angina pectoris (8) Uterine prolapse: Status: Acute Code(s): N81.4 - Uterovaginal prolapse, unspecified (9) Pessary maintenance: Status: Acute Code(s): Z46.89 - Encounter for fitting and adjustment of other specified devices (10) Adnexal cyst: Status: Acute Code(s): N94.9 - Unspecified condition associated with female genital organs and menstrual cycle Meds Home Medications and Allergies Home Medications Medication Instructions Recorded Confirmed Type aspirin 81 mg chewable tablet 81 mg PO DAILY 03/11/23 07/19/23 History atorvastatin 40 mg tablet 40 mg PO HS 03/11/23 07/19/23 History carvedilol 3.125 mg tablet 3.125 mg PO BID 03/11/23 07/19/23 History clopidogrel 75 mg tablet 75 mg PO DAILY 03/11/23 07/19/23 History ropinirole 0.5 mg tablet 0.5 mg PO HS 03/11/23 07/19/23 History spironolactone 25 mg tablet 25 mg PO DAILY 03/11/23 07/19/23 History tramadol 50 mg tablet 50 mg PO QIDP PRN Moderate Pain 03/11/23 07/19/23 History (Scale Score 5-6) ondansetron 4 mg disintegrating 4 mg PO Q8HP PRN Nausea And 03/12/23 07/19/23 History tablet Vomiting furosemide 40 mg tablet 40 mg PO DAILY 04/21/23 07/19/23 History trazodone 50 mg tablet 25 - 50 mg PO HSP PRN Insomnia 04/21/23 07/19/23 History potassium chloride 10 mEq 10 meq PO DAILY 05/07/23 07/19/23 History tablet,extended release sacubitril 49 mg-valsartan 51 mg 1 tab PO BID #60 tabs 05/07/23 07/19/23 Rx tablet (Entresto) clonazepam 0.5 mg tablet 0.5 mg PO HSP PRN Insomnia 07/19/23 07/19/23 History diphenhydramine-zinc acetate 2 1 applic topical Q6HP PRN Itching 07/20/23 Rx %-0.1 % topical cream (Itch Relief) 10 days #60 grams levofloxacin 500 mg tablet 500 mg PO DAILY 5 days #5 tabs 07/20/23 Rx New Prescriptions to Start Prescriptions: diphenhydramine-zinc acetate [Itch Relief] Oneil Anthony levofloxacin Oneil Anthony Allergies Allergy/AdvReac Type Severity Reaction Status Date / Time promethazine Allergy Intermediate severe Verified 05/19/23 13:37 vomiting Penicillins Allergy Verified 05/19/23 13:36 Sulfa (Sulfonamide Allergy Verified 05/19/23 13:36 Antibiotics) triprolidine Allergy Verified 05/19/23 13:36 Discharge Plan Disposition Patient Disposition: Home Health Service Condition: Good Discharge Order Discharge Orders: Discharge Order (Routine); Ordered 07/20/23 Ordered By: Oneil Anthony Follow up Plan Follow up with: Rufus Justice MD [Primary Care Provider] - Enter time for follow up (please call for appointment ) Prescriptions/Medication Reconciliation: New Itch Relief 2-0.1 % Cream 1 applic topical Q6HP PRN (Reason: Itching) 10 Days Qty: 60 0RF levofloxacin 500 mg tablet 500 mg PO DAILY 5 Days Qty: 5 0RF Continued Entresto 49-51 mg tablet 1 tab PO BID Qty: 60 2RF trazodone 50 mg tablet 25 - 50 mg PO HSP PRN (Reason: Insomnia) Patient Comments: TAKE 1/2 TO 1 TABLET BY MOUTH EVERY DAY AT BEDTIME NEEDED potassium chloride 10 mEq tablet extended release 10 meq PO DAILY Patient Comments: TAKE ONE TABLET BY MOUTH EVERY DAY --TAKE WITH FOOD-- atorvastatin 40 mg tablet 40 mg PO HS clopidogrel 75 mg tablet 75 mg PO DAILY tramadol 50 mg tablet 50 mg PO QIDP PRN (Reason: Moderate Pain (Scale Score 5-6)) spironolactone 25 mg tablet 25 mg PO DAILY carvedilol 3.125 mg tablet 3.125 mg PO BID ropinirole 0.5 mg tablet 0.5 mg PO HS aspirin 81 mg tablet,chewable 81 mg PO DAILY ondansetron 4 mg tablet,disintegrating 4 mg PO Q8HP PRN (Reason: Nausea And Vomiting) clonazepam 0.5 mg tablet 0.5 mg PO HSP PRN (Reason: Insomnia) Patient Comments: TAKE 1 TABLET BY MOUTH AT BEDTIME NEEDED Held furosemide 40 mg tablet 40 mg PO DAILY Hold Instructions: Pending follow-up with PCP or cardiology Patient Comments: TAKE ONE TABLET BY MOUTH EVERY DAY Discontinued amlodipine 5 mg tablet 5 mg PO DAILY Problem Reconciliation Problems Reviewed?: Yes Patient Discharge Instructions ACTIVITY: Continue current activity and Ambulate as tolerated DIET: continue same diet Patient Instructions: Kidney Infection, Sepsis Providers Primary Care Provider: Rufus Justice Admit Provider: Oneil Anthony Attending Provider: Oneil Anthony
--- NOTE | 2023-07-20 11:47 | PC.NURSE ---
PT AMBULATED IN THE [facility] WITH WALKER AND STANDBY ASSIST
--- NOTE | 2023-07-20 11:58 | CARE MANAGER ---
Addendum entered by Joleen Hector RN 07/20/23 13:38: Maryann with [facility] has confirmed they will admit patient. Original Note: Patient will require HH at discharge. She requests [facility]. Information sent.
[2023-07-20 12:00] VITALS: BP 115/85; PULSE 64; RESP 16; TEMP 36.6; O2SAT 96
--- NOTE | 2023-07-20 12:49 | HMH.PTEV ---
Physical Therapy Evaluation Rehab PT IP Evaluation Start: 07/20/23 10:06 Freq: ONCE Status: Active Protocol: Document 07/20/23 12:46 [id number] (Rec: 07/20/23 12:49 PHOJAKE [id number]) Subjective/History History History 83 yowf adm to [facility] with Sepsis and pyelonephritis. She has PMH of HFrEF (EF 25% 04/2023), ischemic cardiomyopathy, CAD, hypertension and vaginal prolapse. 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 She reports she is generally independent with all mobility using a RW at baseline. Subjective Subjective Pt reports she is feeling much better this date, rash is much improved, and she agrees to mobility assessment. New diagnosis of cancer in past 12 No months? Rehab PT IP Eval Objective Appearance Patient Behavior Appropriate Patient Orientation Person,Place,Time Difficulty following instructions none Speech Pattern Clear Ambulation Patient Able to Ambulate Yes Ambulation Observation IP General Gait Pattern Observation Shuffling Step Ambulation Distance (feet) 30 Ambulation Assistive Device Rolling Walker Ambulation Ability Supervision/Stand by Balance Ability to Arise Able, uses arms to help Sitting Balance Steady, safe Standing Balance Steady, wide stance Dynamic Standing Balance Ability Fair Transfers Chair Transfer Ability Supervision/Stand by Sit to Stand Bed Transfer Ability Supervision/Stand by Sit to Stand Chair Transfer Ability Supervision/Stand by ROM All Extremities PT ROM Status WFL MMT All Extremities PT MMT WFL Rehab PT IP prob,goals,plan Problems Date of Evaluation: 07/20/23 Discharge Plan PT Discharge Plan Pt appears to be at baseline for all mobility and is appropriate to return home once medically stable for d/c. She would likely benefit [facility] after d/c . Eval Complexity Eval Charge Codes 75593 - High Complexity PHYSICIAN CERTIFICATION: I certify the specified therapy services for Barbara Najera are required, authorized, and reviewed every 30 days.
[2023-07-22 07:45] LABS: Peripheral Smear Review Scanned Result
--- NOTE | 2023-07-22 11:04 | CARE MANAGER ---
Called and spoke with patient's sitter. She stated patient is doing well, and has started new medication. She was unaware of need for f/u with Dr. Justice, but now plans to call and schedule. No concerns voiced at time of call.
[2023-07-22 17:31] LABS: FDP, Plasma <5 ug/mL (<5)
== END 2023-07-20 13:36 | disposition home health service (06) | DRG 872 ==
LOC: ER 18:15 → 2ND 07-19 02:53
PROVIDERS: Family Medicine; Admitting Provider Internal Medicine Adolescent Medicine; Emergency Provider Emergency Medicine; PCP Family Medicine; Visit Provider Internal Medicine Adolescent Medicine
DX: A41.9 Sepsis, unspecified organism (principal); N17.9 Acute kidney failure, unspecified; N12 Tubulo-interstitial nephritis, not specified as acute or chronic; I50.22 Chronic systolic (congestive) heart failure; R65.20 Severe sepsis without septic shock; I25.5 Ischemic cardiomyopathy; I25.10 Atherosclerotic heart disease of native coronary artery without angina pectoris; N81.4 Uterovaginal prolapse, unspecified; Z46.89 Encounter for fitting and adjustment of other specified devices; N94.9 Unspecified condition associated with female genital organs and menstrual cycle; R21 Rash and other nonspecific skin eruption
CPT/HCPCS: 36415; 71045; 71250; 74176; 80053; 81001; 82803; 83605; 83735; 83880; 84145; 85007; 85025; 85378; 85379; 85384; 85610; 85651; 85730; 86140; 86850; 87040; 87081; 87086; 87581; 87632; 87635; 87798; 93005; 97163; 99291; J2185; J3370; J7120

== ENCOUNTER 2023-08-04 15:24 | Emergency (ER) | payer MEDICARE, BC, SELFPAY ==
[2023-08-04 15:25] VITALS: BP 135/70; PULSE 74; RESP 20; TEMP 36.6; O2SAT 94; BMI 21.8
--- NOTE | 2023-08-04 15:36 | PC.NURSE ---
dr scott at bedside
--- NOTE | 2023-08-04 15:40 | HMH.EDGENADL ---
Discharge Plan Disposition Patient Disposition: Home, Self-Care Prescriptions Prescriptions: New ondansetron 4 mg tablet,disintegrating 4 mg PO Q8H PRN (Reason: nausea and vomiting) 4 Days Qty: 12 0RF No Action Entresto 49-51 mg tablet 1 tab PO BID Qty: 60 2RF furosemide 40 mg tablet 40 mg PO DAILY Hold Instructions: Pending follow-up with PCP or cardiology Patient Comments: TAKE ONE TABLET BY MOUTH EVERY DAY trazodone 50 mg tablet 25 - 50 mg PO HSP PRN (Reason: Insomnia) Patient Comments: TAKE 1/2 TO 1 TABLET BY MOUTH EVERY DAY AT BEDTIME NEEDED potassium chloride 10 mEq tablet extended release 10 meq PO DAILY Patient Comments: TAKE ONE TABLET BY MOUTH EVERY DAY --TAKE WITH FOOD-- atorvastatin 40 mg tablet 40 mg PO HS clopidogrel 75 mg tablet 75 mg PO DAILY tramadol 50 mg tablet 50 mg PO QIDP PRN (Reason: Moderate Pain (Scale Score 5-6)) spironolactone 25 mg tablet 25 mg PO DAILY carvedilol 3.125 mg tablet 3.125 mg PO BID ropinirole 0.5 mg tablet 0.5 mg PO HS aspirin 81 mg tablet,chewable 81 mg PO DAILY ondansetron 4 mg tablet,disintegrating 4 mg PO Q8HP PRN (Reason: Nausea And Vomiting) clonazepam 0.5 mg tablet 0.5 mg PO HSP PRN (Reason: Insomnia) Patient Comments: TAKE 1 TABLET BY MOUTH AT BEDTIME NEEDED Itch Relief 2-0.1 % Cream 1 applic topical Q6HP PRN (Reason: Itching) 10 Days Qty: 60 0RF levofloxacin 500 mg tablet 500 mg PO DAILY 5 Days Qty: 5 0RF Referrals Follow up/Referrals: Rufus Justice MD [Primary Care Provider] - See instructions Activity Restrictions/Add. Instructions Additional Instructions/Restrictions: At this time is very safe to be discharged home. If new or worsening symptoms please not hesitate to return the emergency department. Please take your medication as prescribed and performed a bowel cleanout as discussed. Is very important that you keep drinking water and protein shakes so you do not become dehydrated or malnourished. Clinical Impressions Clinical Impression: Nausea, Constipation Discharge ED Provider: John Rose General Adult HPI General Chief complaint: Weakness Stated complaint: weak,vomiting Time Seen by Provider: 08/04/23 15:26 History of Present Illness HPI narrative: Patient is a 83-year-old female with past medical history of heart failure reduced ejection fraction, hypertension, coronary artery disease, recent admission for pyelonephritis who presents emergency department for evaluation of nausea and constipation. With the specter nausea is been going on over the last week since her discharge, decreased p.o. intake, no true vomiting. Her urine has been foul-smelling. No chest pain, no abdominal pain, no cough. She also has constipation that is refractory to milk magnesia and family member has had to disimpact her at home. No other acute complaints at this time. Related Data Home Medications Medication Instructions Recorded Confirmed aspirin 81 mg chewable tablet 81 mg PO DAILY 03/11/23 07/19/23 atorvastatin 40 mg tablet 40 mg PO HS 03/11/23 07/19/23 carvedilol 3.125 mg tablet 3.125 mg PO BID 03/11/23 07/19/23 clopidogrel 75 mg tablet 75 mg PO DAILY 03/11/23 07/19/23 ropinirole 0.5 mg tablet 0.5 mg PO HS 03/11/23 07/19/23 spironolactone 25 mg tablet 25 mg PO DAILY 03/11/23 07/19/23 tramadol 50 mg tablet 50 mg PO QIDP PRN Moderate Pain 03/11/23 07/19/23 (Scale Score 5-6) ondansetron 4 mg disintegrating 4 mg PO Q8HP PRN Nausea And 03/12/23 07/19/23 tablet Vomiting furosemide 40 mg tablet 40 mg PO DAILY 04/21/23 07/19/23 trazodone 50 mg tablet 25 - 50 mg PO HSP PRN Insomnia 04/21/23 07/19/23 potassium chloride 10 mEq 10 meq PO DAILY 05/07/23 07/19/23 tablet,extended release clonazepam 0.5 mg tablet 0.5 mg PO HSP PRN Insomnia 07/19/23 07/19/23 Previous Rx's Medication Instructions Recorded sacubitril 49 mg-valsartan 51 mg 1 tab PO BID #60 tabs 05/07/23 tablet (Entresto) diphenhydramine-zinc acetate 2 1 applic topical Q6HP PRN Itching 07/20/23 %-0.1 % topical cream (Itch Relief) 10 days #60 grams levofloxacin 500 mg tablet 500 mg PO DAILY 5 days #5 tabs 07/20/23 ondansetron 4 mg disintegrating 4 mg PO Q8H PRN nausea and 08/04/23 tablet vomiting 4 days #12 tabs Allergies Allergy/AdvReac Type Severity Reaction Status Date / Time promethazine Allergy Intermediate severe Verified 05/19/23 13:37 vomiting Penicillins Allergy Verified 05/19/23 13:36 Sulfa (Sulfonamide Allergy Verified 05/19/23 13:36 Antibiotics) triprolidine Allergy Verified 05/19/23 13:36 [facility] Disclaimer: The information contained in this section may have been updated after the patient was seen, as this information can be updated by other users. Medical History (Updated 08/04/23 @ 18:08 by John Rose MD) Coronary artery disease Ischemic cardiomyopathy ASCVD (arteriosclerotic cardiovascular disease) Systolic heart failure Cardiomyopathy CHF (congestive heart failure) HLD (hyperlipidemia) Hypertension Left bundle branch block (LBBB) determined by electrocardiography NSTEMI (non-ST elevated myocardial infarction) Surgical History (Updated 07/18/23 @ 20:21 by Soto Sorenson MD) History of cardiac cath S/P partial hysterectomy Family History Other No significant family history Social History (Updated 07/18/23 @ 19:33 by Kelle Jefferson RN) Smoking Status: Never smoker alcohol intake: never current occupational status: retired Travel in the last 8 weeks: None ROS Obtained: Yes Systems reviewed as appropriate & no additional complaints except as documented Physical Exam General General appearance: alert and in no apparent distress Head Head exam: atraumatic and normocephalic Eye Eye exam: Present PERRL ENT ENT exam: Present mucous membranes moist Neck Neck exam: Present normal inspection Chest Chest inspection: Present normal inspection and symmetric chest wall rise Respiratory Respiratory exam: Present normal lung sounds bilaterally; Absent respiratory distress Cardiovascular Cardiovascular exam: Present regular rate and normal rhythm Abdominal Exam Abdominal exam: Present soft; Absent tenderness, guarding or rebound Extremities Exam Extremities exam: Present normal inspection Neurological Exam Neurological exam: Present alert; Absent motor sensory deficit Psychiatric Psychiatric exam: Present normal affect Skin Skin exam: Present warm and dry Medical Decision Making Zbigniew Inquiry Pt receiving controlled substance: No Vital Signs: 08/04/23 15:25 08/04/23 16:01 08/04/23 16:30 Temperature 97.8 F Temperature Source Oral Pulse Rate 60 64 Pulse Rate [Right] 74 Respiratory Rate 20 Blood Pressure 121/53 L 114/51 L Blood Pressure [Right Arm] 135/70 Blood Pressure Mean 86 85 Blood Pressure Mean [Right Arm] 91 Blood Pressure Source [Right Arm] Automatic Cuff 02 Sat by Pulse Oximetry 94 L 92 L 91 L Oxygen Delivery Method Room Air 08/04/23 17:00 Temperature Temperature Source Pulse Rate 73 Pulse Rate [Right] Respiratory Rate Blood Pressure 157/65 H Blood Pressure [Right Arm] Blood Pressure Mean 95 Blood Pressure Mean [Right Arm] Blood Pressure Source [Right Arm] 02 Sat by Pulse Oximetry 94 L Oxygen Delivery Method Lab Data Lab Results 08/04/23 15:35: WBC 10.5, RBC 4.21, Hgb 11.0 L, Hct 34.2 L, MCV 81.1, MCH 26.1 L, MCHC 32.1, RDW 16.5, Plt Count 327, MPV 7.6, Neut % (Auto) 72.5, Lymph % (Auto) 19.5, [place] % (Auto) 4.7, Eos % (Auto) 1.8, Baso % (Auto) 1.6, Neut # (Auto) 7.6, Lymph # (Auto) 2.1, [place] # (Auto) 0.5, Eos # (Auto) 0.2, Baso # (Auto) 0.2, Sodium 139, Potassium 4.1, Chloride 93 L, Carbon Dioxide 39 H, Anion Gap 11.1, BUN 27 H, Creatinine 1.40 H, Estimated Creat Clear 28, Estimated GFR 36 L, Est GFR ( Amer) 43 L, Glucose 122 H, Calcium 8.5, Total Bilirubin 0.8, AST 29, ALT 11 L, Alkaline Phosphatase 95, Total Protein 7.2, Albumin 3.4 L, Globulin 3.8 H, Albumin/Globulin Ratio 0.9 L, Lipase 50 08/04/23 17:14: Urine Color Yellow, Urine Appearance Clear, Urine pH 7.5, Ur Specific [place] 1.020, Urine Protein Negative, Urine Glucose (UA) Negative, Urine Ketones Trace, Urine Blood Negative, Urine Nitrate Negative, Urine Bilirubin 1+ A, Urine Urobilinogen 0.2, Ur Leukocyte Esterase Trace, Urine RBC Occasional, Urine WBC 3-5, Ur Squamous Epith Cells Occasional, Urine Bacteria None 08/04/23 15:35 08/04/23 15:35 Orders (Tests/Meds): ED MEDICATIONS Discontinued Medications Generic Name Dose Route Start Last Admin Trade Name Freq PRN Reason Stop Dose Admin Lactated Ringer's 500 mls @ 999 mls/hr 08/04/23 15:39 08/04/23 15:45 Lactated Ringer's 500ml IV 08/04/23 16:09 999 mls/hr .Q31M ONE Administration Ondansetron HCl 4 mg 08/04/23 15:38 08/04/23 15:46 Ondansetron 4mg/2ml Vial IV 08/04/23 15:39 4 mg ONCE ONE Administration ORDERS Category Date Time Status CBC w/Auto Diff [Complete Blood Count Auto Diff] Stat Lab 08/04/23 15:35 Completed CMP [Comprehensive Metabolic Panel] Stat Lab 08/04/23 15:35 Completed Lipase Stat Lab 08/04/23 15:35 Completed UA [Urinalysis and Microscopic] Stat Lab 08/04/23 17:14 Completed Medical Decision Narrative: In summary patient is a 83-year-old female past medical history described above presents emergency department for evaluation of constipation, nausea in the setting of recent admission for pyelonephritis. Patient is hemodynamically stable nontoxic-appearing upon arrival, afebrile. Differential diagnosis includes urinary tract infection, nausea secondary to constipation, among others. Workup will be conducted with hematologic labs, urinalysis. Initial interventions include Zofran, gentle crystalloid resuscitation given history of heart failure with reduced ejection fraction. Imaging intra-abdominal he was considered however patient has no pain and has nonfocal exam, no significant tachycardia or fever so my concern for perinephric abscess or other emergent pathology is low and therefore imaging will be deferred. Initial workup reviewed by me, hematologic labs are nonactionable, no significant leukocytosis, stable CKD, no critical electrolyte abnormality. Urinalysis interpreted by me and not consistent with infection. Patient with p.o. trial at bedside was successful. Given this patient was provided bowel cleanout instructions with MiraLAX at bedside and the importance of hydration was impressed upon her. Patient will be discharged with Zofran for her nausea and is appropriate for discharge at this time. Critical Care Critical Care Time Critical Care Time: No
[2023-08-04] MEDS: RINGERS SOLUTION,LACTATED 500 ML 999 ML IV (15:45)
[2023-08-04] MEDS: ONDANSETRON 4MG/2ML VIAL 4 MG IV (15:46)
[2023-08-04 16:01] VITALS: BP 121/53; PULSE 60; O2SAT 92
[2023-08-04 16:07] LABS: Basophils # 0.2 K/mm3 (0-0.2); Basophils % 1.6 % (0.1-2.0); Eosinophils # 0.2 K/mm3 (0.0-0.4); Eosinophils % 1.8 % (0.1-12.0); Hematocrit 34.2 % (37.0-47.0); Lymphocytes # 2.1 K/mm3 (0.7-4.5); Lymphocytes % 19.5 % (10-50); Mean Corpuscular HGB Conc 32.1 g/dL (31.8-35.4); Mean Corpuscular Hemoglobin 26.1 pg (27.0-31.2); Mean Corpuscular Volume 81.1 fl (81-99); Mean Platelet Volume 7.6 fl (7.4-10.4); Monocytes # 0.5 K/mm3 (0.1-1.0); Monocytes % 4.7 % (1.7-9.3); Neutrophils # 7.6 K/mm3 (1.8-7.8); Neutrophils % 72.5 % (37.0-80.0); Platelet Count 327 K/mm3 (142-424); Red Blood Count 4.21 M/mm3 (4.20-5.40); Red Cell Distribution Width 16.5 % (11.5-17.5); White Blood Count 10.5 K/mm3 (4.8-10.8)
[2023-08-04 16:11] LABS: Chloride 93 mmol/L (98-107); Potassium 4.1 mmoL/L (3.5-5.1); Sodium 139 mmol/L (136-145)
[2023-08-04 16:13] LABS: Blood Urea Nitrogen 27 mg/dl (7-17); Creatinine Clearance Estimated 28 mL/min (50-200); Estimated Glomerular Filt Rate 36 ml/min (>60); GFR (African American) 43 ML/MIN (>60)
[2023-08-04 16:14] LABS: Alanine Aminotransferase 11 U/L (12-78); Albumin Level 3.4 g/dl (3.5-5.0); Albumin/Globulin Ratio 0.9 (1.1-1.8); Alkaline Phosphatase 95 U/L (38-126); Anion Gap 11.1 mEq/L (5-15); Aspartate Amino Transferase 29 U/L (14-36); Bilirubin,Total 0.8 mg/dl (0.2-1.3); Calcium 8.5 mg/dl (8.4-10.2); Carbon Dioxide 39 mmol/L (22.0-30.0); Globulin 3.8 g/dL (1.3-3.2); Glucose 122 mg/dl (74-100); Total Protein,Serum 7.2 g/dl (6.3-8.2)
[2023-08-04 16:27] LABS: Lipase 50 U/L (23-300)
[2023-08-04 16:30] VITALS: BP 114/51; PULSE 64; O2SAT 91
[2023-08-04 17:00] VITALS: BP 157/65; PULSE 73; O2SAT 94
[2023-08-04 17:22] LABS: Appearance,Urine CLEAR (Clear); Blood, Urine Negative (Negative); Color,Urine YELLOW (Yellow); Glucose,Urine (UA) Negative (Negative); Ketones,Urine TRACE (Negative); Leukocyte Esterase,Urine TRACE (Negative); Microscopic, Urine URINE MICROSCOPIC (MICROSCOPIC); Nitrate,Urine Negative (Negative); PH,Urine 7.5 (5.0-8.5); Protein,Urine Negative (Negative); Urobilinogen,Urine 0.2 EU/dl (0.2)
[2023-08-04 17:23] LABS: Bilirubin,Urine 1+ (Negative)
[2023-08-04 17:52] LABS: RBC,Urine Occasional #/hpf (0-3); Squamous Epithelial Cell,Urine Occasional #/hpf (0-5)
[2023-08-04 18:11] VITALS: BP 141/64; PULSE 68; RESP 18; TEMP 36.6; O2SAT 98
== END 2023-08-04 18:27 | disposition home or self-care (01) ==
PROVIDERS: Emergency Provider Emergency Medicine; PCP Family Medicine
DX: R11.0 Nausea (principal); K59.00 Constipation, unspecified; I11.0 Hypertensive heart disease with heart failure; I25.10 Atherosclerotic heart disease of native coronary artery without angina pectoris; I50.20 Unspecified systolic (congestive) heart failure; E78.5 Hyperlipidemia, unspecified
CPT/HCPCS: 80053; 81001; 83690; 85025; 96374; 99284; J2405; J7120

== ENCOUNTER 2023-08-12 17:09 | Observation (INO) | payer MEDICARE, BC, SELFPAY ==
[2023-08-12] VITALS (9 sets, daily range): BP systolic 133–160; BP diastolic 64–80; PULSE 59–90; RESP 16–20; TEMP 36.9–37.1; O2SAT 88–100; BMI 20.5; BMI 21.7
--- NOTE | 2023-08-12 17:11 | ED_ITS ---
<Statement entered by Camron Mcclure MD - 08/12/23 23:34> I was consulted by the DEEP, and we discussed the complexity of the problems being addressed. I approved the treatment and management plan for this patient's care in the emergency department, thus performing a substantive portion of the medical decision making. Camron Mcclure MD, KEELY, FACEP Discharge Plan Disposition Patient Disposition: Admitted Condition: Fair Clinical Impressions Clinical Impression: Acute nontraumatic kidney injury Urinary tract infectious disease Qualifiers: Urinary tract infection type: site unspecified Hematuria presence: with hematuria Qualified Code(s): N39.0 - Urinary tract infection, site not specified Discharge ED Provider: Camron Mcclure General Adult HPI General Chief complaint: Weakness Stated complaint: weakness Time Seen by Provider: 08/12/23 17:11 History of Present Illness HPI narrative: Patient presents for self-reported weakness. Patient states that she has had difficulty going to the bathroom and had not gone in several days and subsequently took an medicine last night and then she exploded and has been weak ever since. She states that she feels better from a constipation standpoint however overall she feels generally weak. She denies chest pain fever chills hemoptysis hematochezia melena nausea vomiting abdominal pain. Related Data Home Medications Medication Instructions Recorded Confirmed aspirin 81 mg chewable tablet 81 mg PO DAILY 03/11/23 07/19/23 atorvastatin 40 mg tablet 40 mg PO HS 03/11/23 07/19/23 carvedilol 3.125 mg tablet 3.125 mg PO BID 03/11/23 07/19/23 clopidogrel 75 mg tablet 75 mg PO DAILY 03/11/23 07/19/23 ropinirole 0.5 mg tablet 0.5 mg PO HS 03/11/23 07/19/23 spironolactone 25 mg tablet 25 mg PO DAILY 03/11/23 07/19/23 tramadol 50 mg tablet 50 mg PO QIDP PRN Moderate Pain 03/11/23 07/19/23 (Scale Score 5-6) ondansetron 4 mg disintegrating 4 mg PO Q8HP PRN Nausea And 03/12/23 07/19/23 tablet Vomiting furosemide 40 mg tablet 40 mg PO DAILY 04/21/23 07/19/23 trazodone 50 mg tablet 25 - 50 mg PO HSP PRN Insomnia 04/21/23 07/19/23 potassium chloride 10 mEq 10 meq PO DAILY 05/07/23 07/19/23 tablet,extended release clonazepam 0.5 mg tablet 0.5 mg PO HSP PRN Insomnia 07/19/23 07/19/23 Previous Rx's Medication Instructions Recorded sacubitril 49 mg-valsartan 51 mg 1 tab PO BID #60 tabs 05/07/23 tablet (Entresto) diphenhydramine-zinc acetate 2 1 applic topical Q6HP PRN Itching 07/20/23 %-0.1 % topical cream (Itch Relief) 10 days #60 grams levofloxacin 500 mg tablet 500 mg PO DAILY 5 days #5 tabs 07/20/23 ondansetron 4 mg disintegrating 4 mg PO Q8H PRN nausea and 08/04/23 tablet vomiting 4 days #12 tabs Allergies Allergy/AdvReac Type Severity Reaction Status Date / Time promethazine Allergy Intermediate severe Verified 05/19/23 13:37 vomiting Penicillins Allergy Verified 05/19/23 13:36 Sulfa (Sulfonamide Allergy Verified 05/19/23 13:36 Antibiotics) triprolidine Allergy Verified 05/19/23 13:36 PFS PFS Disclaimer: The information contained in this section may have been updated after the patient was seen, as this information can be updated by other users. Medical History (Updated 08/12/23 @ 19:12 by GRACIE Strauss) Coronary artery disease Ischemic cardiomyopathy ASCVD (arteriosclerotic cardiovascular disease) Systolic heart failure Cardiomyopathy CHF (congestive heart failure) HLD (hyperlipidemia) Hypertension Left bundle branch block (LBBB) determined by electrocardiography NSTEMI (non-ST elevated myocardial infarction) Surgical History (Updated 07/18/23 @ 20:21 by Soto Sorenson MD) History of cardiac cath S/P partial hysterectomy Family History Other No significant family history Social History (Updated 07/18/23 @ 19:33 by Kelle Jefferson RN) Smoking Status: Never smoker alcohol intake: never current occupational status: retired Travel in the last 8 weeks: None ROS Obtained: Yes Systems reviewed as appropriate & no additional complaints except as documented Physical Exam General General appearance: alert and in no apparent distress Respiratory Respiratory exam: Present normal lung sounds bilaterally Cardiovascular Cardiovascular exam: Present regular rate and normal rhythm; Absent normal heart sounds Extremities Exam Extremities exam: Present normal inspection and full ROM Back Exam Back exam: Present normal inspection and full ROM Neurological Exam Neurological exam: Present alert and oriented X3 Medical Decision Making Medical Records Medical records reviewed: Yes I reviewed the patient's medical records. Zbigniew Inquiry Pt receiving controlled substance: No Vital Signs: 08/12/23 17:16 08/12/23 17:30 08/12/23 18:01 Temperature 98.5 F Temperature Source Oral Pulse Rate 88 78 Pulse Rate [Left Radial] 90 Respiratory Rate 20 Blood Pressure 135/74 142/64 H Blood Pressure [Right Arm] 159/80 H Blood Pressure Mean Blood Pressure Mean [Right Arm] 106 Blood Pressure Source Blood Pressure Position 02 Sat by Pulse Oximetry 95 88 L 100 Oxygen Delivery Method Room Air Room Air Nasal Cannula Oxygen Flow Rate (LPM) 2 08/12/23 18:30 08/12/23 19:00 08/12/23 19:23 Temperature 98.8 F Temperature Source Oral Pulse Rate 59 L 75 80 Pulse Rate [Left Radial] Respiratory Rate 16 Blood Pressure 160/65 H 159/74 H 159/74 H Blood Pressure [Right Arm] Blood Pressure Mean 102 Blood Pressure Mean [Right Arm] Blood Pressure Source Automatic Cuff Blood Pressure Position Supine 02 Sat by Pulse Oximetry 99 100 98 Oxygen Delivery Method Room Air Room Air Room Air Oxygen Flow Rate (LPM) 08/12/23 19:30 Temperature Temperature Source Pulse Rate 75 Pulse Rate [Left Radial] Respiratory Rate Blood Pressure 134/66 Blood Pressure [Right Arm] Blood Pressure Mean 103 Blood Pressure Mean [Right Arm] Blood Pressure Source Blood Pressure Position 02 Sat by Pulse Oximetry 100 Oxygen Delivery Method Room Air Oxygen Flow Rate (LPM) Lab Data Lab results reviewed: Yes I reviewed the patient's lab results. Lab Results 08/12/23 17:17: WBC 8.7, RBC 4.62, Hgb 12.3, Hct 38.0, MCV 82.4, MCH 26.6 L, MCHC 32.2, RDW 17.6 H, Plt Count 390, MPV 7.5, Neut % (Auto) 69.3, Lymph % (Auto) 21.7, [place] % (Auto) 5.0, Eos % (Auto) 2.7, Baso % (Auto) 1.2, Neut # (Auto) 6.0, Lymph # (Auto) 1.9, [place] # (Auto) 0.4, Eos # (Auto) 0.2, Baso # (Auto) 0.1, Sodium 138, Potassium 4.2, Chloride 91 L, Carbon Dioxide 40 H, Anion Gap 11.2, BUN 34 H, Creatinine 2.30 H, Estimated Creat Clear 16, Estimated GFR 20 L, Est GFR ( Amer) 25 L, Glucose 169 H, Calcium 8.6, Magnesium 3.3 H, Total Bilirubin 0.6, AST 25, ALT 9 L, Alkaline Phosphatase 111, Troponin I 0.02, Total Protein 7.6, Albumin 3.6, Globulin 4.0 H, Albumin/Globulin Ratio 0.9 L 08/12/23 18:25: Urine Color Dark yellow, Urine Appearance Cloudy, Urine pH 6.5, Ur Specific [place] 1.020, Urine Protein Trace, Urine Glucose (UA) Negative, Urine Ketones Trace, Urine Blood Trace-l, Urine Nitrate Negative, Urine Bilirubin 2+ A, Urine Urobilinogen 0.2, Ur Leukocyte Esterase 3+ A, Urine RBC 3- 5, Urine WBC 20-50, Ur Squamous Epith Cells 10-20, Urine Bacteria 2+ 08/12/23 17:17 08/12/23 17:17 Orders (Tests/Meds): ED MEDICATIONS Generic Name Dose Route Start Last Admin Trade Name Freq PRN Reason Stop Dose Admin Ceftriaxone Sodium 1 gm/ 50 mls @ 100 mls/hr 08/12/23 18:45 08/12/23 19:11 Sodium Chloride IV 08/22/23 18:44 100 mls/hr Q24H SHAINA Administration Discontinued Medications Generic Name Dose Route Start Last Admin Trade Name Freq PRN Reason Stop Dose Admin Acetaminophen 1,000 mg 08/12/23 17:12 08/12/23 17:48 Acetaminophen 1,000mg/100ml Vial IV 08/12/23 17:13 1,000 mg ONCE ONE Administration Lactated Ringer's 1,000 mls @ 999 mls/hr 08/12/23 17:12 08/12/23 17:48 Lactated Ringer's 1000 Ml Bag IV 08/12/23 18:12 999 mls/hr .Q1H1M ONE Administration Ketorolac Tromethamine 15 mg 08/12/23 17:12 08/12/23 17:48 Ketorolac 30mg/Ml Vial IV 08/12/23 17:13 15 mg ONCE ONE Administration ORDERS Category Date Time Status Chest XR -- portable [XR chest portable] Stat Exams 08/12/23 17:12 Completed CBC w/Auto Diff [Complete Blood Count Auto Diff] Stat Lab 08/12/23 17:17 Completed CMP [Comprehensive Metabolic Panel] Stat Lab 08/12/23 17:17 Completed Magnesium Stat Lab 08/12/23 17:17 Completed Trop I [Troponin I] Stat Lab 08/12/23 17:17 Completed Troponin I Q3H Lab 08/12/23 20:15 Ordered Troponin I Q3H Lab 08/12/23 23:15 Ordered UA [Urinalysis and Microscopic] Stat Lab 08/12/23 18:25 Completed Urine Culture Stat Micro 08/12/23 18:25 Received Medical Decision Narrative: In summary patient is a 83-year-old female who presents to the emergency department for evaluation of generalized weakness. Patient is hemodynamically stable upon arrival, afebrile. Physical exam is unremarkable and nonfocal including no abdominal pain chest pain shortness of breath patient is normal sinus rhythm on the bedside monitor. Differential diagnosis includes a very large left including gastroenteritis versus electrolyte imbalances versus C. difficile versus ACS versus UTI etc. Initial workup will be conducted with hematologic labs chest x-ray twelve-lead EKG urinalysis. Initial interventions include crystalloid bolus Toradol Tylenol continuous cardiac monitoring and pulse oximetry. Initial workup reviewed by me and shows that she has acute kidney injury and a urinary tract infection. Given that had interactive discussion with Dr. Alexander and is agreed to for admission for further evaluation and care Critical Care Critical Care Time Critical Care Time: No
--- NOTE | 2023-08-12 17:12 | XR_ITS ---
PROCEDURE INFORMATION: Exam: XR Chest Exam date and time: 08/12/2023 5:24 PM Age: 83 years old Clinical indication: Other: Weakness; Additional info: Asthenia TECHNIQUE: Imaging protocol: Radiologic exam of the chest. Views: 1 view. COMPARISON: CT CHEST WO CON 07/18/2023 4:36 PM FINDINGS: Lungs: Right middle lobe calcified granulomas unchanged from prior exam. No consolidations. Pleural spaces: Unremarkable. No pleural effusion. No pneumothorax. Heart/Mediastinum: Unremarkable. No cardiomegaly. Bones/joints: Unremarkable. IMPRESSION: No acute findings.
--- NOTE | 2023-08-12 17:18 | ECG_ITS ---
APPROVED REPORT Exam: Resting ECG HR:89 bpm ECG Measurements Heart Rate 89 AXES RI 175 P 77 QRSd 148 QRS 6 QT 398 T 113 QTc 445 Conclusion SINUS RHYTHM LEFT BUNDLE BRANCH BLOCK [120+ ms QRS DURATION, 80+ ms Q/S IN V1/V2, 85+ ms R IN I/aVL/V5/V6] ABNORMAL ECG UNCONFIRMED REPORT Electronically signed by : Oneil Mcclure, 08/12/2023 23:37:48
[2023-08-12 17:25] LABS: Basophils # 0.1 K/mm3 (0-0.2); Basophils % 1.2 % (0.1-2.0); Eosinophils # 0.2 K/mm3 (0.0-0.4); Eosinophils % 2.7 % (0.1-12.0); Hemoglobin 12.3 g/dL (12.2-16.2); Lymphocytes # 1.9 K/mm3 (0.7-4.5); Lymphocytes % 21.7 % (10-50); Mean Corpuscular HGB Conc 32.2 g/dL (31.8-35.4); Mean Corpuscular Hemoglobin 26.6 pg (27.0-31.2); Mean Corpuscular Volume 82.4 fl (81-99); Mean Platelet Volume 7.5 fl (7.4-10.4); Monocytes # 0.4 K/mm3 (0.1-1.0); Neutrophils % 69.3 % (37.0-80.0); Platelet Count 390 K/mm3 (142-424); Red Blood Count 4.62 M/mm3 (4.20-5.40); Red Cell Distribution Width 17.6 % (11.5-17.5); White Blood Count 8.7 K/mm3 (4.8-10.8)
[2023-08-12 17:31] LABS: Chloride 91 mmol/L (98-107)
[2023-08-12 17:32] LABS: Potassium 4.2 mmoL/L (3.5-5.1); Sodium 138 mmol/L (136-145)
[2023-08-12 17:34] LABS: Alanine Aminotransferase 9 U/L (12-78); Alkaline Phosphatase 111 U/L (38-126); Anion Gap 11.2 mEq/L (5-15); Aspartate Amino Transferase 25 U/L (14-36); Bilirubin,Total 0.6 mg/dl (0.2-1.3); Blood Urea Nitrogen 34 mg/dl (7-17); Carbon Dioxide 40 mmol/L (22.0-30.0); Creatinine Clearance Estimated 16 mL/min (50-200); Estimated Glomerular Filt Rate 20 ml/min (>60); GFR (African American) 25 ML/MIN (>60)
[2023-08-12 17:35] LABS: Albumin Level 3.6 g/dl (3.5-5.0); Albumin/Globulin Ratio 0.9 (1.1-1.8); Calcium 8.6 mg/dl (8.4-10.2); Glucose 169 mg/dl (74-100); Magnesium 3.3 mg/dl (1.6-2.3); Total Protein,Serum 7.6 g/dl (6.3-8.2)
[2023-08-12 17:46] LABS: Troponin I 0.02 ng/ml (0.00-0.034)
[2023-08-12] MEDS: KETOROLAC 30MG/ML VIAL 15 MG IV (17:48)
[2023-08-12] MEDS: ACETAMINOPHEN 1,000MG/100ML VIAL 1000 MG IV (17:48)
[2023-08-12] MEDS: LACTATED RINGERS 1000ML 1,000 ML 999 ML IV (17:48)
--- NOTE | 2023-08-12 18:14 | PC.NURSE ---
pt placed on 2L via nasal cannula
[2023-08-12 18:29] LABS: Microscopic, Urine URINE MICROSCOPIC (MICROSCOPIC)
[2023-08-12 18:33] LABS: Blood, Urine TRACE-L (Negative); Glucose,Urine (UA) Negative (Negative); Ketones,Urine TRACE (Negative); Leukocyte Esterase,Urine 3+ (Negative); Nitrate,Urine Negative (Negative); PH,Urine 6.5 (5.0-8.5); Protein,Urine TRACE (Negative); Urobilinogen,Urine 0.2 EU/dl (0.2)
[2023-08-12 18:39] LABS: Appearance,Urine Cloudy (Clear); Bilirubin,Urine 2+ (Negative); Color,Urine Dark Yellow (Yellow)
[2023-08-12 18:52] LABS: Bacteria,Urine 2+ /lpf; WBC,Urine 20-50 #/hpf (0-3)
[2023-08-12] MEDS: CEFTRIAXONE SODIUM 1 GM in 0.9 % SODIUM CHLORIDE 50 ML IV (19:11)
--- NOTE | 2023-08-12 19:14 | PC.NURSE ---
Dr. Gay paged for 2nd time
--- NOTE | 2023-08-12 20:12 | PC.NURSE ---
Report call to Radha ELKINS. Pt. is being admitted to room 201.
--- NOTE | 2023-08-12 20:26 | PC.NURSE ---
Pt arrived to the floor via stretcher @ 2025
[2023-08-12] MEDS: 0.9 % SODIUM CHLORIDE 1000ML 1,000 ML 75 ML IV (20:41)
[2023-08-12] MEDS: ATORVASTATIN 40MG TABLET 40 MG PO (22:21)
[2023-08-12] MEDS: CARVEDILOL 3.125MG TABLET 3.125 MG PO (22:21)
[2023-08-12] MEDS: TRAZODONE 50MG TABLET 50 MG PO (22:23)
[2023-08-12] MEDS: clonazePAM 0.5MG TABLET 0.5 MG PO (22:23)
[2023-08-12] MEDS: ROPINIROLE 1MG TABLET 0.5 MG PO (22:23)
[2023-08-12] MEDS: SACUBITRIL/VALSARTAN 24-26MG TABLET 2 EACH PO (22:23)
[2023-08-13 04:00] VITALS: BP 117/44; PULSE 61; RESP 16; TEMP 36.7; O2SAT 94; BMI 21.4
--- NOTE | 2023-08-13 04:27 | PC.NURSE ---
Pt has rested well through the night with no specific complaints. She tolerated snack prior to going to sleep. NS infusing at 75 ml/hr.
[2023-08-13 07:34] LABS: Chloride 98 mmol/L (98-107); Potassium 3.9 mmoL/L (3.5-5.1); Sodium 138 mmol/L (136-145)
[2023-08-13 07:36] VITALS: BP 123/52; PULSE 59; RESP 14; TEMP 37; O2SAT 92
[2023-08-13 07:37] LABS: Anion Gap 10.9 mEq/L (5-15); Blood Urea Nitrogen 31 mg/dl (7-17); Calcium 8.2 mg/dl (8.4-10.2); Carbon Dioxide 33 mmol/L (22.0-30.0); Creatinine Clearance Estimated 24 mL/min (50-200); Estimated Glomerular Filt Rate 31 ml/min (>60); GFR (African American) 37 ML/MIN (>60); Glucose 79 mg/dl (74-100)
[2023-08-13] MEDS: SACUBITRIL/VALSARTAN 24-26MG TABLET 2 EACH PO (08:09)
[2023-08-13] MEDS: CARVEDILOL 3.125MG TABLET 3.125 MG PO (08:09)
--- NOTE | 2023-08-13 08:19 | HMH.PHAINT1 ---
Pharmacy Intervention Comments: HOME MEDICATION LIST VERIFIED USING LIST FROM OUTPATIENT PHARMACY
--- NOTE | 2023-08-13 08:38 | P.PN_ITS ---
Subjective *Date: 08/13/23 *Time: 08:48 Interval history: Ms. Najera is an 83yo female who had been constipated for 3 to 4 days and took milk of magnesia. She states she then exploded and had numerous episodes of diarrhea. She then began feeling weak and presented to the emergency room for evaluation. She was found to have renal insufficiency acute kidney injury and possibly a UTI. She was admitted for further evaluation and treatment. Medical Exam Vital signs and Labs for Last 24 Hours: Vital Signs Temp Pulse Pulse Resp BP BP Pulse Ox 08/13/23 07:36 98.6 F 59 L 14 123/52 L 92 L 08/13/23 06:39 08/13/23 05:00 08/13/23 04:00 98.0 F 61 16 117/44 L 94 L 08/13/23 03:00 08/13/23 01:00 08/12/23 23:00 08/12/23 23:00 08/12/23 21:00 08/12/23 20:26 70 18 133/64 91 L 08/12/23 20:13 98.8 F 80 20 159/74 H 08/12/23 19:30 75 134/66 100 08/12/23 19:23 98.8 F 80 16 159/74 H 98 08/12/23 19:00 75 159/74 H 100 08/12/23 18:30 59 L 160/65 H 99 08/12/23 18:01 78 142/64 H 100 08/12/23 17:30 88 135/74 88 L 08/12/23 17:16 98.5 F 90 20 159/80 H 95 O2 Del Method O2 Flow Rate 08/13/23 07:36 Room Air 08/13/23 06:39 Room Air 08/13/23 05:00 Room Air 08/13/23 04:00 Room Air 08/13/23 03:00 Room Air 08/13/23 01:00 Room Air 08/12/23 23:00 Room Air 08/12/23 23:00 Room Air 08/12/23 21:00 Room Air 08/12/23 20:26 Room Air 08/12/23 20:13 Room Air 08/12/23 19:30 Room Air 08/12/23 19:23 Room Air 08/12/23 19:00 Room Air 08/12/23 18:30 Room Air 08/12/23 18:01 Nasal Cannula 2 08/12/23 17:30 Room Air 08/12/23 17:16 Room Air Intake and Output 08/12/23 08/13/23 08/13/23 19:59 03:59 11:59 Intake Total 735 / 855 120 / 855 Output Total 100 / 100 0 / 100 Balance 635 / 755 120 / 755 Intake: Intake, Oral Amount 360 / 480 120 / 480 Intake, Total IV Amount 375 / 375 0.9 % Sodium Chloride 1000ML 1, 375 / 375 000 ml @ 75 mls/hr IV .[id number] FORMERLY [facility], 1928–1983 Rx#:[id number] Output: Output, Urine Amount 100 / 100 0 / 100 Other: Number of Unmeasured Voids 1 Weight 120 lb 127 lb 4.8 oz 125 lb 9.6 oz Patient Weight 08/13/23 11:59 Weight 125 lb 9.6 oz Laboratory Results - last 24 hr 08/12/23 17:17: WBC 8.7, RBC 4.62, Hgb 12.3, Hct 38.0, MCV 82.4, MCH 26.6 L, MCHC 32.2, RDW 17.6 H, Plt Count 390, MPV 7.5, Neut % (Auto) 69.3, Lymph % (Auto) 21.7, [place] % (Auto) 5.0, Eos % (Auto) 2.7, Baso % (Auto) 1.2, Neut # (Auto) 6.0, Lymph # (Auto) 1.9, [place] # (Auto) 0.4, Eos # (Auto) 0.2, Baso # (Auto) 0.1, Sodium 138, Potassium 4.2, Chloride 91 L, Carbon Dioxide 40 H, Anion Gap 11.2, BUN 34 H, Creatinine 2.30 H, Estimated Creat Clear 16, Estimated GFR 20 L, Est GFR ( Amer) 25 L, Glucose 169 H, Calcium 8.6, Magnesium 3.3 H, Total Bilirubin 0.6, AST 25, ALT 9 L, Alkaline Phosphatase 111, Troponin I 0.02, Total Protein 7.6, Albumin 3.6, Globulin 4.0 H, Albumin/Globulin Ratio 0.9 L 08/12/23 18:25: Urine Color Dark yellow, Urine Appearance Cloudy, Urine pH 6.5, Ur Specific [place] 1.020, Urine Protein Trace, Urine Glucose (UA) Negative, Urine Ketones Trace, Urine Blood Trace-l, Urine Nitrate Negative, Urine Bilirubin 2+ A, Urine Urobilinogen 0.2, Ur Leukocyte Esterase 3+ A, Urine RBC 3- 5, Urine WBC 20-50, Ur Squamous Epith Cells 10-20, Urine Bacteria 2+ 08/13/23 06:36: Sodium 138, Potassium 3.9, Chloride 98, Carbon Dioxide 33 H, Anion Gap 10.9, BUN 31 H, Creatinine 1.60 H D, Estimated Creat Clear 24, Estimated GFR 31 L, Est GFR ( Amer) 37 L D, Glucose 79 D, Calcium 8.2 L I & O for Labs for Last 24 Hours: Intake & Output 08/10/23 08/11/23 08/12/23 08/13/23 11:59 11:59 11:59 11:59 Intake Total 855 / 855 Output Total 100 / 100 Balance 755 / 755 Weight 125 lb 9.6 oz Constitutional: Present no acute distress Respiratory: Present CTA bilaterally Cardiac: Present Reg Rate and Rhythm GI: Present soft; Absent distention or tenderness Extremities: Absent edema Skin: Present intact Neuro: Present alert, awake and oriented x 3 Assessment and Plan *Assessment and plan (1) Diarrhea: Status: Acute Category: Medical Code(s): R19.7 - Diarrhea, unspecified (2) Urinary tract infectious disease: Status: Acute Qualifiers: Hematuria presence: with hematuria Urinary tract infection type: site unspecified Qualified Code(s): N39.0 - Urinary tract infection, site not specified; R31.9 - Hematuria, unspecified Category: Medical Code(s): N39.0 - Urinary tract infection, site not specified (3) Nausea: Status: Acute Category: Medical Code(s): R11.0 - Nausea (4) Weakness: Status: Acute Category: Medical Code(s): R53.1 - Weakness (5) YAMEL (acute kidney injury): Status: Resolved Category: Medical Code(s): N17.9 - Acute kidney failure, unspecified (6) CKD (chronic kidney disease) stage 3, GFR 30-59 ml/min: Status: Acute Category: Medical Code(s): N18.30 - Chronic kidney disease, stage 3 unspecified Plan Patient was given a dose of abx in the ER. She is much better this am. The diarrhea has resolved and she is able to eat and wants to go home. Will get PT to see her. If she can get up and walk and tolerate her diet, she can likely be discharged. Dr. Linda entry - Saw patient, agree with above note.
--- NOTE | 2023-08-13 10:12 | HMH.PTEV ---
Physical Therapy Evaluation Rehab PT IP Evaluation Start: 08/13/23 08:23 Freq: ONCE Status: Active Protocol: Document 08/13/23 10:08 BREE (Rec: 08/13/23 10:12 BREE [id number]) Subjective/History History History Pt is a 83 y/o female who presents to [facility] with weakness and possible UTI. Subjective Subjective PLOF per pt report: Lives in a single-story home with 1 TITO. 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 Is receiving PT services. Not driving prior to admission. IND with ambulation using RW. New diagnosis of cancer in past 12 No months? Rehab PT IP Eval Objective Appearance Patient Behavior Appropriate,Cooperative Patient Orientation Person,Birthday Difficulty following instructions none Speech Pattern Clear Ambulation Patient Able to Ambulate Yes Ambulation Observation IP General Gait Pattern Observation Wide Based Gait Ambulation Distance (feet) 17 Ambulation Assistive Device None Ambulation Ability Minimal x 1 (25% assist) Balance Ability to Arise Able, uses arms to help Sitting Balance Steady, safe Standing Balance Unsteady Transfers Bed Transfer Ability Minimal x 1 (25% assist) Sit to Stand Bed Transfer Ability Minimal x 1 (25% assist) Rehab PT IP prob,goals,plan Problems Date of Evaluation: 08/13/23 PT IP Problems Bed Mobility,Transfers,Gait, Balance,Self care,Safety Rehab Potential Rehab Potential Good Plan PT Intervention Plan Bed Mobility,Transfers,Gait, Balance,Safety,Therapeutic Exercise Other Intervention Plan 1-2 times PT Plan Frequency Daily Duration LOS Discharge Goals Bed Transfer Ability Supervision/Stand by Sit to Stand Chair Transfer Ability Contact Guard/Hand Hold Ambulation Assistive Device Rolling Walker Ambulation Distance (feet) 20 Discharge Plan PT Discharge Plan Initial physical therapy evaluation performed. Patient presents below baseline at this time in functional mobility, transfers, gait, and strength. Pt would benefit from skilled PT while at [facility] to prevent further functional decline and maximize safety with mobility. Pt safe to d/c home when deemed medically necessary d/t current level of mobility, home set-up, and caregiver support. PT recommending home health PT services to address deficits. Eval Complexity Eval Charge Codes 75262 - Moderate Complexity PHYSICIAN CERTIFICATION: I certify the specified therapy services for Barbara Najera are required, authorized, and reviewed every 30 days.
--- NOTE | 2023-08-13 10:39 | HMH.OTEV ---
OT Inpatient Evaluation Rehab OT IP Evaluation Start: 08/13/23 08:34 Freq: ONCE Status: Active Protocol: Document 08/13/23 10:07 [email or web address] (Rec: 08/13/23 10:39 [facility] [id number]) Rehab OT IP Assessment Subjective History Patient is a 83 yr old female, presented on 08/12/2023 for self-reported weakness. Patient states that she has had difficulty going to the bathroom and had not gone in several days and subsequently took an medicine last night and then she exploded and has been weak ever since. She states that she feels better from a constipation standpoint however overall she feels generally weak. She denies chest pain fever chills hemoptysis hematochezia melena nausea vomiting abdominal pain. PLOF: Pt reports they live with and caregiver in a single story home. The home has one step to enter home. Pt reports caregiver or is there 15/09. Pt reports they are independent in ADLs but needs assistance with IADLs, which are completed by caregiver. Pt does not drive. Pt uses a walker and cane. Pt has shower chair for bathing. Pt reports they do receive home health services. Subjective I'm ready. Pt was supine in bed when therapy arrived this morning. Pt was agreeable to participate in initial OT eval this morning. Pt was oriented x3. Pt was agreeable to sit on EOB. Pt went from supine to EOB with Min Assist. Pt was able to don sock with SBA. Pt then completed a sit to stand transfer with Min Assist x2. Pt then completed functional mobility task of ~10 feet with Mod Assist x2. Pt demonstrated fair balance and weight shift during functional mobility task as pt did not have a walker to use. Pt did use therapists to steady self and put most UE weight on while completing functional mobility task. Pt then sat back on EOB. Pt went from EOB to supine with Min Assist. Pt was left in bed with call light and all other needs within reach. Pt's family also entered room in middle of therapy session and was in room when therapy exited. Objective Patient Orientation Person,Place,Birthday Right Upper Extremity Gross ROM WFL Left Upper Extremity Gross ROM WFL Bed Mobility bed mobility-scooting,bed mobility - supine/sit Assist Level Minimal x 1 (25% assist) Transfer Training Sit/Stand Transfer Assist Level Minimal x 2 (25% assist) Lower Body Dressing Ability Standby Assistance Decrease in Endurance Yes Rehab OT IP prob,goals,plan Problems Date of Evaluation: 08/13/23 OT IP Problems Bed Mobility,Transfers,Balance ,Self care,Safety Rehab Potential Rehab Potential Good Equipment Needs Assistive Devices Straight Cane,Standard Walker Plan OT intervention Plan Bed Mobility,Transfers,Balance ,Self care,Safety,Therapeutic Exercise OT Plan Frequency Daily Duration LOS Discharge Goals Bed Mobility Ability Standby Assistance Sit to Stand Chair Transfer Ability Minimal x 1 (25% assist) Chair Transfer Ability Minimal x 1 (25% assist) Chair Transfer Technique Sit to/from Ambulatory Chair Transfer Assistive Devices Rolling Walker Feeding Ability Assist with Tray Set Up Lower Body Dressing Ability Standby Assistance Upper Body Dressing Ability Standby Assistance Bathing Ability Minimal Assistance Performing Toilet Hygiene Ability Standby Assistance Overall Commode/Toilet Transfer Ability Standby Assistance Decrease in Endurance No Discharge Plan OT Discharge Plan At this time, it is recommended that pt can go home with 15/09 caregiver and family members and continue to receive skilled OT services through home health to address deficits in occupational performance pending medical status and dr orders. Pt will continue to be seen while at this facility to address occupational performance deficits with skilled OT services. Eval Complexity Eval Charge Codes 96763 - Moderate Complexity PHYSICIAN CERTIFICATION: I certify the specified therapy services for Barbara Najera are required, authorized, and reviewed every 30 days.
--- NOTE | 2023-08-13 15:34 | CARE MANAGER ---
PT/OT reported patient appropriate for home with HH services. Patient already has HH with [facility]. Will fax discharge summary when available.
--- NOTE | 2023-08-13 16:56 | EXP.HPDC ---
General Admission date:: 08/12/23 Discharge date: 08/13/23 *Admission Date: 08/12/23 *Chief complaint: diarrhea, weakness *History of present illness: Ms. Najera is an 83yo female who had been constipated for 3 to 4 days and took milk of magnesia. She states she then exploded and had numerous episodes of diarrhea. She then began feeling weak and presented to the emergency room for evaluation. She was found to have acute kidney injury and possibly a UTI. She was admitted for further evaluation and treatment. [facility] Disclaimer: The information contained in this section may have been updated after the patient was seen, as this information can be updated by other users. Medical History (Updated 08/13/23 @ 08:50 by Hollis Linda MD) GI bleed Chronic constipation CKD (chronic kidney disease) stage 3, GFR 30-59 ml/min Coronary artery disease Ischemic cardiomyopathy ASCVD (arteriosclerotic cardiovascular disease) Systolic heart failure Cardiomyopathy CHF (congestive heart failure) HLD (hyperlipidemia) Hypertension Left bundle branch block (LBBB) determined by electrocardiography NSTEMI (non-ST elevated myocardial infarction) Surgical History History of cardiac cath S/P partial hysterectomy Family History No significant family history Social History Smoking Status: Never smoker alcohol intake: never current occupational status: retired Travel in the last 8 weeks: None Review of Systems Constitutional Constitutional: Denies chills, Denies fever(s), Denies headache(s), Reports poor appetite, Reports lethargy and Reports weakness Eyes Eyes: Denies blurry vision and Denies diplopia ENT Ears, Nose, Mouth, and Throat: Denies headache(s), Denies nasal congestion, Denies sore throat and Denies vertigo *Cardiovascular Cardiovascular: Denies chest pain and Denies dyspnea *Respiratory Respiratory: Denies chest congestion, Denies cough and Denies dyspnea *Gastrointestinal Gastrointestinal: Denies abdominal pain, Reports diarrhea, Denies nausea and Denies vomiting *Genitourinary Genitourinary: Denies difficulty voiding and Denies dysuria *Musculoskeletal Musculoskeletal: Denies arthralgias, Reports muscle weakness and Denies myalgias *Neurologic Neurologic: Denies headache(s), Denies vertigo and Reports weakness Exam Data for Last 24 hours Vital signs and Labs for Last 24 Hours: Temp Pulse Resp BP Pulse Ox O2 Del Method O2 Flow Rate 98.6 F 59 L 14 123/52 L 92 L Room Air 2 08/13/23 07:36 08/13/23 07:36 08/13/23 07:36 08/13/23 07:36 08/13/23 07:36 08/13/23 13:00 08/12/23 18:01 Laboratory Results - last 24 hr 08/12/23 17:17: WBC 8.7, RBC 4.62, Hgb 12.3, Hct 38.0, MCV 82.4, MCH 26.6 L, MCHC 32.2, RDW 17.6 H, Plt Count 390, MPV 7.5, Neut % (Auto) 69.3, Lymph % (Auto) 21.7, [place] % (Auto) 5.0, Eos % (Auto) 2.7, Baso % (Auto) 1.2, Neut # (Auto) 6.0, Lymph # (Auto) 1.9, [place] # (Auto) 0.4, Eos # (Auto) 0.2, Baso # (Auto) 0.1, Sodium 138, Potassium 4.2, Chloride 91 L, Carbon Dioxide 40 H, Anion Gap 11.2, BUN 34 H, Creatinine 2.30 H, Estimated Creat Clear 16, Estimated GFR 20 L, Est GFR ( Amer) 25 L, Glucose 169 H, Calcium 8.6, Magnesium 3.3 H, Total Bilirubin 0.6, AST 25, ALT 9 L, Alkaline Phosphatase 111, Troponin I 0.02, Total Protein 7.6, Albumin 3.6, Globulin 4.0 H, Albumin/Globulin Ratio 0.9 L 08/12/23 18:25: Urine Color Dark yellow, Urine Appearance Cloudy, Urine pH 6.5, Ur Specific [place] 1.020, Urine Protein Trace, Urine Glucose (UA) Negative, Urine Ketones Trace, Urine Blood Trace-l, Urine Nitrate Negative, Urine Bilirubin 2+ A, Urine Urobilinogen 0.2, Ur Leukocyte Esterase 3+ A, Urine RBC 3-5, Urine WBC 20-50, Ur Squamous Epith Cells 10-20, Urine Bacteria 2+ 08/13/23 06:36: Sodium 138, Potassium 3.9, Chloride 98, Carbon Dioxide 33 H, Anion Gap 10.9, BUN 31 H, Creatinine 1.60 H D, Estimated Creat Clear 24, Estimated GFR 31 L, Est GFR ( Amer) 37 L D, Glucose 79 D, Calcium 8.2 L I & O for Last 24 hours: Intake & Output 08/11/23 08/12/23 08/13/23 08/14/23 11:59 11:59 11:59 11:59 Intake Total 855 / 855 1146 / 1146 Output Total 100 / 100 Balance 755 / 755 1146 / 1146 Weight 125 lb 9.6 oz Constitutional Constitutional: no acute distress *Routine HEENT Exam Head: Present normocephalic and atraumatic Eye: Present EOMI and PERRL ENT: Present mucous membranes moist *Routine Neck Exam Neck: Present supple and full ROM *Routine Respiratory Exam Respiratory: Present CTA bilaterally *Routine Cardiovascular Exam Cardiovascular: Present RRR *Routine Abdominal Exam Abdominal: Present soft and normoactive bowel sounds; Absent tenderness *Routine Rectal Exam Rectal:: deferred *Routine Genitalia Exam Genitalia:: deferred *Routine Extremities Exam Extremities: Absent cyanosis, clubbing or edema *Routine Skin Exam Skin: Present intact; Absent erythema *Routine Neurological Exam Neurological: Present alert and oriented X3 Meds Home Medications and Allergies Home Medications Medication Instructions Recorded Confirmed Type aspirin 81 mg chewable tablet 81 mg PO DAILY 03/11/23 08/12/23 History atorvastatin 40 mg tablet 40 mg PO HS 03/11/23 08/12/23 History carvedilol 3.125 mg tablet 3.125 mg PO BID 03/11/23 08/12/23 History clopidogrel 75 mg tablet 75 mg PO DAILY 03/11/23 08/12/23 History ropinirole 0.5 mg tablet 0.5 mg PO HS 03/11/23 08/12/23 History spironolactone 25 mg tablet 25 mg PO DAILY 03/11/23 08/12/23 History furosemide 40 mg tablet 40 mg PO DAILY 04/21/23 08/12/23 History trazodone 50 mg tablet 25 - 50 mg PO HSP PRN Insomnia 04/21/23 08/12/23 History sacubitril 49 mg-valsartan 51 mg 1 tab PO BID #60 tabs 05/07/23 08/12/23 Rx tablet (Entresto) clonazepam 0.5 mg tablet 0.5 mg PO HSP PRN Insomnia 07/19/23 08/12/23 History diphenhydramine-zinc acetate 2 1 applic topical Q6HP PRN Itching 07/20/23 08/12/23 Rx %-0.1 % topical cream (Itch Relief) 10 days #60 grams nitrofurantoin 100 mg PO Q12H 5 days #10 caps 08/13/23 Rx monohydrate/macrocrystals 100 mg capsule (Macrobid) New Prescriptions to Start Prescriptions: nitrofurantoin monohyd/m-cryst [Macrobid] [place] Allergies Allergy/AdvReac Type Severity Reaction Status Date / Time promethazine Allergy Intermediate severe Verified 05/19/23 13:37 vomiting Penicillins Allergy Verified 05/19/23 13:36 Sulfa (Sulfonamide Allergy Verified 05/19/23 13:36 Antibiotics) triprolidine Allergy Verified 05/19/23 13:36 Hospital Course Hospital Course Hospital Course: The patient did well with IVF's and her renal function improved. She had no further diarrhea. She was seen by PT and felt stable to be discharged home. She will f/u with Dr. Justice. She will be discharged home on macrobid pending urine culture. Results Data Completed and Pending Labs on day of discharge: Labs from last 24 hours 08/13/23 08/12/23 08/12/23 06:36 18:25 17:17 WBC 8.7 RBC 4.62 Hgb 12.3 Hct 38.0 MCV 82.4 MCH 26.6 L MCHC 32.2 RDW 17.6 H Plt Count 390 MPV 7.5 Neut % (Auto) 69.3 Lymph % (Auto) 21.7 [place] % (Auto) 5.0 Eos % (Auto) 2.7 Baso % (Auto) 1.2 Neut # (Auto) 6.0 Lymph # (Auto) 1.9 [place] # (Auto) 0.4 Eos # (Auto) 0.2 Baso # (Auto) 0.1 Sodium 138 138 Potassium 3.9 4.2 Chloride 98 91 L Carbon Dioxide 33 H 40 H Anion Gap 10.9 11.2 BUN 31 H 34 H Creatinine 1.60 H D 2.30 H Estimated Creat Clear 24 16 Estimated GFR 31 L 20 L Est GFR ( Amer) 37 L D 25 L Glucose 79 D 169 H Calcium 8.2 L 8.6 Magnesium 3.3 H Total Bilirubin 0.6 AST 25 ALT 9 L Alkaline Phosphatase 111 Troponin I 0.02 Total Protein 7.6 Albumin 3.6 Globulin 4.0 H Albumin/Globulin Ratio 0.9 L Urine Color Dark yellow Urine Appearance Cloudy Urine pH 6.5 Ur Specific [place] 1.020 Urine Protein Trace Urine Glucose (UA) Negative Urine Ketones Trace Urine Blood Trace-l Urine Nitrate Negative Urine Bilirubin 2+ A Urine Urobilinogen 0.2 Ur Leukocyte Esterase 3+ A Urine RBC 3-5 Urine WBC 20-50 Ur Squamous Epith Cells 10-20 Urine Bacteria 2+ DS: Diagnosis Discharge Diagnosis (1) Diarrhea: Status: Acute Code(s): R19.7 - Diarrhea, unspecified (2) Urinary tract infectious disease: Status: Acute Code(s): N39.0 - Urinary tract infection, site not specified Qualifiers: Hematuria presence: with hematuria Urinary tract infection type: site unspecified Qualified Code(s): N39.0 - Urinary tract infection, site not specified; R31.9 - Hematuria, unspecified (3) Nausea: Status: Acute Code(s): R11.0 - Nausea (4) Weakness: Status: Acute Code(s): R53.1 - Weakness (5) YAMEL (acute kidney injury): Status: Resolved Code(s): N17.9 - Acute kidney failure, unspecified (6) CKD (chronic kidney disease) stage 3, GFR 30-59 ml/min: Status: Acute Code(s): N18.30 - Chronic kidney disease, stage 3 unspecified Discharge Plan Disposition Patient Disposition: Home, Self-Care Condition: Fair Follow up Plan Follow up with: Rufus Justice MD [Primary Care Provider] - 09/01/23 2:00 pm Prescriptions/Medication Reconciliation: New nitrofurantoin monohyd/m-cryst [Macrobid] 100 mg capsule 100 mg PO Q12H 5 Days Qty: 10 0RF Rx Instructions: must administer with a meal/food Continued Entresto 49-51 mg tablet 1 tab PO BID Qty: 60 2RF furosemide 40 mg tablet 40 mg PO DAILY Hold Instructions: Pending follow-up with PCP or cardiology Patient Comments: TAKE ONE TABLET BY MOUTH EVERY DAY trazodone 50 mg tablet 25 - 50 mg PO HSP PRN (Reason: Insomnia) Patient Comments: TAKE 1/2 TO 1 TABLET BY MOUTH EVERY DAY AT BEDTIME NEEDED atorvastatin 40 mg tablet 40 mg PO HS clopidogrel 75 mg tablet 75 mg PO DAILY spironolactone 25 mg tablet 25 mg PO DAILY carvedilol 3.125 mg tablet 3.125 mg PO BID ropinirole 0.5 mg tablet 0.5 mg PO HS aspirin 81 mg tablet,chewable 81 mg PO DAILY clonazepam 0.5 mg tablet 0.5 mg PO HSP PRN (Reason: Insomnia) Patient Comments: TAKE 1 TABLET BY MOUTH AT BEDTIME NEEDED Itch Relief 2-0.1 % Cream 1 applic topical Q6HP PRN (Reason: Itching) 10 Days Qty: 60 0RF Problem Reconciliation Problems Reviewed?: Yes Patient Discharge Instructions ACTIVITY: Continue current activity DIET: continue same diet Patient Instructions: DI for Urinary Tract Infection (UTI), DI for Acute Kidney Injury Providers Primary Care Provider: Rufus Justice Admit Provider: Rufus Justice Attending Provider: Hollis Linda
--- NOTE | 2023-08-14 13:54 | CARE MANAGER ---
Contacted patient related to hospital discharge. She states she is feeling better. She has her antibiotic and is aware of follow up appointment. Denies questions or concerns. BRITTNI Odonnell
== END 2023-08-13 14:19 | disposition home health service (06) ==
LOC: ER 19:32 → 2ND 20:01
PROVIDERS: Physician Assistant; Admitting Provider Family Medicine; Emergency Provider Student in an Organized Health Care Education/Training Program; PCP Family Medicine; Visit Provider Family Medicine
DX: R19.7 Diarrhea, unspecified (principal); N39.0 Urinary tract infection, site not specified; R31.9 Hematuria, unspecified; R11.0 Nausea; R53.1 Weakness; N17.9 Acute kidney failure, unspecified; N18.30 Chronic kidney disease, stage 3 unspecified; I25.5 Ischemic cardiomyopathy; Z79.899 Other long term (current) drug therapy; I25.2 Old myocardial infarction; I50.20 Unspecified systolic (congestive) heart failure; I12.9 Hypertensive chronic kidney disease with stage 1 through stage 4 chronic kidney disease, or unspecified chronic kidney disease; I25.10 Atherosclerotic heart disease of native coronary artery without angina pectoris
CPT/HCPCS: 36415; 71045; 80048; 80053; 81001; 83735; 84484; 85025; 87086; 87088; 87186; 93005; 97162; 97166; 97530; 99285; G0378; J0131; J0696; J1885; J7120

== ENCOUNTER 2023-08-26 14:47 | Inpatient (IN) | payer MEDICARE, BC, SELFPAY ==
[2023-08-26] VITALS (14 sets, daily range): BP systolic 102–149; BP diastolic 52–79; PULSE 63–91; RESP 16–18; TEMP 36.7–36.8; O2SAT 94–97; BMI 22.6; BMI 24.0
--- NOTE | 2023-08-26 15:19 | ED_ITS ---
Discharge Plan Disposition Patient Disposition: Admitted Chief Complaint: Abdominal Pain Clinical Impressions Clinical Impression: YAMEL (acute kidney injury), Acute pyelonephritis, Generalized weakness Discharge ED Provider: Meir Acuña General Adult HPI General Chief complaint: Abdominal Pain Stated complaint: ABD pain Time Seen by Provider: 08/26/23 14:57 Mode of Arrival: EMS Source of Information: Patient, EMS and Medical Record Limitations: No Limitations Description of Symptoms (Recalled from ER Triage Doc. by RN): Patient is here today for abd pain, n/v and constipation. has been admitted here recently with similar issues History of Present Illness HPI narrative: Please note that above description of symptoms, in this electronic medical record under categorization of recalled from ER triage doctor by RN are reflective of an initial nursing assessment, however, is not reflective of my full history and physical exam that was personally taken and clarified. Consequentially, this preceding description of symptoms, which may include the patient's categorized chief complaint in the EMR, do not reflect my personal clinical impression, and the ultimate description of history of present illness and patient stated complaints should be deferred to this section of the note. Unless stated otherwise or congruent with this section of the note, additional signs, symptoms, or incongruence should be interpreted as inaccurate with my clinical impression. Related Data Home Medications Medication Instructions Recorded Confirmed aspirin 81 mg chewable tablet 81 mg PO DAILY 03/11/23 08/12/23 atorvastatin 40 mg tablet 40 mg PO HS 03/11/23 08/12/23 carvedilol 3.125 mg tablet 3.125 mg PO BID 03/11/23 08/12/23 clopidogrel 75 mg tablet 75 mg PO DAILY 03/11/23 08/12/23 ropinirole 0.5 mg tablet 0.5 mg PO HS 03/11/23 08/12/23 spironolactone 25 mg tablet 25 mg PO DAILY 03/11/23 08/12/23 furosemide 40 mg tablet 40 mg PO DAILY 04/21/23 08/12/23 trazodone 50 mg tablet 25 - 50 mg PO HSP PRN Insomnia 04/21/23 08/12/23 clonazepam 0.5 mg tablet 0.5 mg PO HSP PRN Insomnia 07/19/23 08/12/23 Previous Rx's Medication Instructions Recorded sacubitril 49 mg-valsartan 51 mg 1 tab PO BID #60 tabs 05/07/23 tablet (Entresto) diphenhydramine-zinc acetate 2 1 applic topical Q6HP PRN Itching 07/20/23 %-0.1 % topical cream (Itch Relief) 10 days #60 grams nitrofurantoin 100 mg PO Q12H 5 days #10 caps 08/13/23 monohydrate/macrocrystals 100 mg capsule (Macrobid) Allergies Allergy/AdvReac Type Severity Reaction Status Date / Time promethazine Allergy Intermediate severe Verified 05/19/23 13:37 vomiting Penicillins Allergy Verified 05/19/23 13:36 Sulfa (Sulfonamide Allergy Verified 05/19/23 13:36 Antibiotics) triprolidine Allergy Verified 05/19/23 13:36 PFSH PFSH Disclaimer: The information contained in this section may have been updated after the patient was seen, as this information can be updated by other users. Medical History (Updated 08/26/23 @ 22:05 by Meir Acuña MD) Pyelonephritis GI bleed Chronic constipation CKD (chronic kidney disease) stage 3, GFR 30-59 ml/min Coronary artery disease Ischemic cardiomyopathy ASCVD (arteriosclerotic cardiovascular disease) Systolic heart failure Cardiomyopathy CHF (congestive heart failure) HLD (hyperlipidemia) Hypertension Left bundle branch block (LBBB) determined by electrocardiography NSTEMI (non-ST elevated myocardial infarction) Surgical History History of cardiac cath S/P partial hysterectomy Family History No significant family history Social History Smoking Status: Never smoker alcohol intake: never current occupational status: retired Travel in the last 8 weeks: None ROS Obtained: Yes All systems reviewed & no additional complaints except as documented Physical Exam General General appearance: alert and other (Chronically ill, but in no acute distress) Head Head exam: atraumatic and normocephalic Eye Eye exam: Present PERRL, EOMI and other (Sunken eyes) ENT ENT exam: Present mucous membranes dry Neck Neck exam: Present normal inspection, full ROM and trachea midline Respiratory Respiratory exam: Present normal lung sounds bilaterally; Absent respiratory distress, wheezes, stridor, accessory muscle use or prolonged expiratory phase Cardiovascular Cardiovascular exam: Present regular rate, normal rhythm and systolic murmur (Right upper sternal border) Abdominal Exam Abdominal exam: Present soft; Absent distention, tenderness, guarding, rebound or rigidity Extremities Exam Extremities exam: Absent edema Neurological Exam Neurological exam: Present alert, oriented X3, CN II-XII intact and normal gait; Absent motor sensory deficit Skin Skin exam: Present warm and dry; Absent diaphoresis or erythema Medical Decision Making Medical Records Medical records reviewed: Yes I reviewed the patient's medical records. Zbigniew Inquiry Pt receiving controlled substance: No Zbigniew was queried for this patient: No Vital Signs: 08/26/23 14:47 08/26/23 16:19 08/26/23 17:00 Temperature 98.0 F Temperature Source Oral Pulse Rate 89 79 Pulse Rate [Right Radial] 91 H Respiratory Rate 18 Blood Pressure 102/63 L 112/52 L Blood Pressure [Right Arm] 136/79 Blood Pressure Mean [Right Arm] 98 02 Sat by Pulse Oximetry 97 96 95 Oxygen Delivery Method Room Air Room Air 08/26/23 17:30 08/26/23 18:02 08/26/23 18:29 Temperature Temperature Source Pulse Rate 79 87 64 Pulse Rate [Right Radial] Respiratory Rate Blood Pressure 109/56 L 126/56 L 120/55 L Blood Pressure [Right Arm] Blood Pressure Mean [Right Arm] 02 Sat by Pulse Oximetry 95 94 L Oxygen Delivery Method Room Air Room Air 08/26/23 19:00 08/26/23 19:30 08/26/23 20:00 Temperature Temperature Source Pulse Rate 67 65 63 Pulse Rate [Right Radial] Respiratory Rate 18 16 18 Blood Pressure 139/66 149/62 H 135/69 Blood Pressure [Right Arm] Blood Pressure Mean [Right Arm] 02 Sat by Pulse Oximetry 95 95 96 Oxygen Delivery Method Room Air Room Air Room Air 08/26/23 21:00 08/26/23 21:30 08/26/23 21:49 Temperature 98.2 F Temperature Source Oral Pulse Rate 71 69 74 Pulse Rate [Right Radial] Respiratory Rate 16 16 16 Blood Pressure 139/65 140/60 140/60 Blood Pressure [Right Arm] Blood Pressure Mean [Right Arm] 02 Sat by Pulse Oximetry 95 95 Oxygen Delivery Method Room Air Room Air Room Air Lab Data Lab Results 08/26/23 15:00: WBC Cancelled, Corrected WBC Cancelled, RBC Cancelled, Hgb Cancelled, Hct Cancelled, MCV Cancelled, MCH Cancelled, MCHC Cancelled, RDW Cancelled, Plt Count Cancelled, MPV Cancelled, Neut % (Auto) Cancelled, Lymph % (Auto) Cancelled, Catron % (Auto) Cancelled, Eos % (Auto) Cancelled, Baso % (Auto) Cancelled, Neut # (Auto) Cancelled, Lymph # (Auto) Cancelled, Catron # (Auto) Cancelled, Eos # (Auto) Cancelled, Baso # (Auto) Cancelled, Lipase Cancelled 08/26/23 16:00: WBC 9.9, RBC 3.76 L, Hgb 10.4 L, Hct 32.0 L, MCV 85.1, MCH 27.7, MCHC 32.6, RDW 18.8 H, Plt Count 222, MPV 7.8, Neut % (Auto) 73.0, Lymph % (Auto) 18.4, Catron % (Auto) 5.7, Eos % (Auto) 2.0, Baso % (Auto) 0.8, Neut # (Auto) 7.2, Lymph # (Auto) 1.8, Catron # (Auto) 0.6, Eos # (Auto) 0.2, Baso # (Auto) 0.1, Blood Type A Positive, Antibody Screen Negative 08/26/23 18:48: Urine Color Yellow, Urine Appearance Cloudy, Urine pH 6.0, Ur Specific [place] 1.015, Urine Protein 1+, Urine Glucose (UA) Negative, Urine Ketones Negative, Urine Blood 2+, Urine Nitrate Negative, Urine Bilirubin Negative, Urine Urobilinogen 0.2, Ur Leukocyte Esterase 2+ A, Urine RBC 5-10, Urine WBC 20-50, Ur Squamous Epith Cells None, Urine Bacteria None 08/26/23 19:40: Sodium 139, Potassium 4.4, Chloride 103, Carbon Dioxide 32 H, Anion Gap 8.4, BUN 49 H, Creatinine 3.00 H, Estimated Creat Clear 13, Estimated GFR 15 L*, Est GFR ( Amer) 18 L*, Glucose 101 H, Lactate 0.9, Calcium 8.6, Total Bilirubin 0.3, AST 16, ALT 7 L, Alkaline Phosphatase 86, Troponin I 0.02, NT-Pro-B Natriuret Pep 462 H, Total Protein 6.4, Albumin 3.0 L, Globulin 3.4 H, Albumin/Globulin Ratio 0.9 L, Lipase 51 08/26/23 16:00 08/26/23 19:40 Orders (Tests/Meds): ED MEDICATIONS Generic Name Dose Route Start Last Admin Trade Name Naun PRN Reason Stop Dose Admin Lactated Ringer's 1,000 mls @ 100 mls/hr 08/26/23 21:38 Lactated Ringer's 1000 Ml Bag IV 09/25/23 21:29 .Q10H SHAINA Ceftriaxone Sodium 1 gm/ 50 mls @ 100 mls/hr 08/26/23 21:38 Sodium Chloride IV 08/26/23 22:06 ONCE ONE Discontinued Medications Generic Name Dose Route Start Last Admin Trade Name Freq PRN Reason Stop Dose Admin Lactated Ringer's 1,000 mls @ 999 mls/hr 08/26/23 14:58 08/26/23 16:59 Lactated Ringer's 1000 Ml Bag IV 08/26/23 15:58 999 mls/hr .Q1H1M ONE Administration Lactated Ringer's 1,000 mls @ 100 mls/hr 08/26/23 21:30 Lactated Ringer's 1000 Ml Bag IV 09/25/23 21:29 .Q10H SHAINA Ceftriaxone Sodium 1 gm/ 50 mls @ 100 mls/hr 08/26/23 21:37 Sodium Chloride IV 08/26/23 22:06 ONCE ONE Metoclopramide HCl 10 mg 08/26/23 15:09 08/26/23 16:59 Metoclopramide Hcl 10mg/2ml Vial IVP 08/26/23 15:10 10 mg ONCE ONE Administration ORDERS Category Date Time Status Type and Screen Stat BBK 08/26/23 16:[address] abdomen pelvis wo con Stat Cat Scan 08/26/23 20:25 Taken CXR --portable [XR chest portable] Stat Exams 08/26/23 15:28 Completed CBC w/Auto Diff [Complete Blood Count Auto Diff] Stat Lab 08/26/23 16:00 Completed CMP [Comprehensive Metabolic Panel] Stat Lab 08/26/23 19:40 Completed Lactic Acid Stat Lab 08/26/23 19:40 Completed Lipase Stat Lab 08/26/23 19:40 Completed NT Pro Brain Natriuretic Pep. Stat Lab 08/26/23 19:40 Completed Trop I [Troponin I] Stat Lab 08/26/23 19:40 Completed Troponin I Q3H Lab 08/26/23 02:47 Ordered Troponin I Q3H Lab 08/26/23 22:47 Ordered UA [Urinalysis and Microscopic] Stat Lab 08/26/23 18:48 Completed Blood Culture Stat Micro 08/26/23 19:40 Received Urine Culture Stat Micro 08/26/23 18:48 Received Medical Decision Narrative: 83-year-old female history of hypertension, hyperlipidemia, ischemic cardiomyopathy with [address], see HF, numerous UTIs, chronic nausea, chronic constipation, malnutrition presenting with belly pain. This has been going on for about 3 weeks. Has not gotten acutely worse. They present today because patient has been unable to eat or drink secondary to chronic nausea despite having scopolamine patch in place. Patient states that the pain now radiates to her bilateral flanks, is mild, not associated with diarrhea. She is still constipated, on stool softeners. States that she has had no blood in her stool or vomit. Abdominal pain is diffuse, primarily lower and crampy. Still producing urine once or twice a day. History obtained with patient and family as well as caregiver. On arrival, patient hemodynamically stable, alert, oriented x4, appropriate, GCS 15, moving all extremities spontaneously, pupils equal and reactive to light. Full physical exam performed and significant for chronically ill-appearing woman who is in no acute distress. Dry mucous membranes, sunken eyes. Nontachycardic. She does have a right upper sternal border murmur. No lower extremity edema. Abdomen is soft, minimally tender, nondistended. No flank tenderness. No overlying skin changes. Differential includes ACS, IA, pneumonia, UTI, sepsis, metabolic disturbance, endocrinologic disturbance, dehydration, constipation, diverticulitis, nephrolithiasis, aortic pathology, among others. Independent interpretation of EKG shows sinus rhythm with left bundle branch block morphology widened QRS and normal axis. VA 175, QRS 161, QTc 470. Sgarbossa negative. Patient was given fluids for symptomatic management and correction of underlying abnormalities. Initial labsl seem diluted, repeat set of labs were drawn. Given patient's severe dehydration, ultrasound-guided IV was placed. Workup independently interpreted and significant for Nonactionable CBC. Chemistry with concern for YAMEL BUN 49 creatinine 3.0 up from baseline of around 1.5-1.6. GFR 15. Patient's BNP only mildly elevated 462, nowhere near she is in the past. This may be her baseline. Troponin negative. Urinalysis with protein, blood, leukocyte esterase. In the setting of chronic kidney disease, could just be standard, but given patient having complaint of abdominal pain going to her right flank, patient to be given ceftriaxone for this. CT abdomen pelvis was ordered, noncontrasted scan was given due to her current kidney function. CT abdomen pelvis without acute intra-abdominal abnormality, but she does have right kidney larger than the left with hydroureter, unknown if this is chronic, but could be related to patient's pain versus early pyelonephritis. See radiology read for full review of final results. On reevaluation, patient wishing to go home, but results were relayed to her and she is agreeable to inpatient admission. Because patient high risk for clinical decompensation, deemed appropriate for inpatient admission. Results were relayed to patient who voiced understanding and patient was agreeable to inpatient admission and management. Patient was admitted to the hospital for further definitive management. Environmental Project Manager disclaimer Much of this encounter note is an electronic electric motor and generator assembler spoken language to printed text. Electronic electric motor and generator assembler of the spoken language may permit errors. Although I have reviewed the note, some errors may still exist. Procedures Limited Ultrasound Indication:: Ultrasound-guided line placement Indication: -Dehydration, difficult access Identified structures: -Axillary, cephalic, ulnar and radial veins. Location/access site: -Cephalic vein left upper extremity Vessel patency: -Patent Direct visualization? -Yes Impression: Successful placement of 20-gauge catheter in left. Images were not saved to permanent archive The study was technically adequate CPT Codes: Venipuncture: 53486-50 Age <3 yo: 97768-20 Age >3yo: 77010-45 Central line <5 yo: 32124-60 Central line >5 yo: 34840-87 This study was performed by me, and I personally interpreted all images/videos. Based on my clinical judgement, these images were adequate and did not necessitate further imaging Critical Care Critical Care Time Critical Care Time: Yes (renal) Attestation: On 08/26/23, the high probability of a clinically significant, sudden or life threatening deterioration of the following system(s) required my full and direct attention, intervention and personal management. The time I documented below is in addition to time spent performing reported procedures but includes the following listed in this critical care notation. Total Time Total Critical Care Time: 45
--- NOTE | 2023-08-26 15:28 | XR_ITS ---
FINAL REPORT CLINICAL HISTORY: weakness, vomiting COMPARISON: 08/12/2023 FINDINGS: A single portable view of the chest was obtained. The heart size and pulmonary vascularity are within normal limits. The mediastinum is within normal limits. No acute pulmonary abnormality is identified. The bony thorax is intact. IMPRESSION: No active cardiopulmonary disease. Reviewed, Interpreted and Dictated by Sherman Delatorre III, MD Transcribed by Sara Torres Authenticated and [facility]
--- NOTE | 2023-08-26 15:47 | ECG_ITS ---
APPROVED REPORT Exam: Resting ECG HR:75 bpm ECG Measurements Heart Rate 75 AXES DE 175 P 76 QRSd 161 QRS 54 QT 441 T 123 QTc 470 Conclusion Sinus rhythm Left bundle branch block morphology. Sgarbossa negative Electronically signed by : JERONIMO VERONICA, 08/26/2023 22:43:29
[2023-08-26 16:09] LABS: Basophils # 0.1 K/mm3 (0-0.2); Basophils % 0.8 % (0.1-2.0); Eosinophils # 0.2 K/mm3 (0.0-0.4); Lymphocytes # 1.8 K/mm3 (0.7-4.5); Lymphocytes % 18.4 % (10-50); Mean Corpuscular HGB Conc 32.6 g/dL (31.8-35.4); Mean Corpuscular Hemoglobin 27.7 pg (27.0-31.2); Mean Corpuscular Volume 85.1 fl (81-99); Mean Platelet Volume 7.8 fl (7.4-10.4); Monocytes # 0.6 K/mm3 (0.1-1.0); Monocytes % 5.7 % (1.7-9.3); Neutrophils # 7.2 K/mm3 (1.8-7.8); Platelet Count 222 K/mm3 (142-424); Red Blood Count 3.76 M/mm3 (4.20-5.40); Red Cell Distribution Width 18.8 % (11.5-17.5); White Blood Count 9.9 K/mm3 (4.8-10.8)
[2023-08-26 16:12] LABS: Hemoglobin 10.4 g/dL (12.2-16.2)
[2023-08-26] MEDS: METOCLOPRAMIDE HCL 10MG/2ML VIAL 10 MG IVP (16:59)
[2023-08-26] MEDS: LACTATED RINGERS 1000ML 1,000 ML 999 ML IV (16:59)
--- NOTE | 2023-08-26 17:35 | PC.NURSE ---
DR VERONICA AT BEDSIDE TO UPDATE PT AND FAMILY
[2023-08-26 18:53] LABS: Microscopic, Urine URINE MICROSCOPIC (MICROSCOPIC)
--- NOTE | 2023-08-26 19:00 | HMH.ITSTN ---
spoke to RN stated waiting on ultrasound guided iv for ct scan , nurse also stated that anytime they stick her she doesnt get enough blood to complete all lab orders, also waiting on cmp
[2023-08-26 19:10] LABS: Appearance,Urine CLOUDY (Clear); Bilirubin,Urine Negative (Negative); Blood, Urine 2+ (Negative); Color,Urine YELLOW (Yellow); Glucose,Urine (UA) Negative (Negative); Ketones,Urine Negative (Negative); Leukocyte Esterase,Urine 2+ (Negative); Nitrate,Urine Negative (Negative); Protein,Urine 1+ (Negative); Specific Gravity, Urine 1.015 (1.005-1.030); Urobilinogen,Urine 0.2 EU/dl (0.2)
--- NOTE | 2023-08-26 19:33 | PC.NURSE ---
Called Radiology to update them about IV insertion and labs being collected
[2023-08-26 19:36] LABS: WBC,Urine 20-50 #/hpf (0-3)
[2023-08-26 20:01] LABS: Chloride 103 mmol/L (98-107); Sodium 139 mmol/L (136-145)
[2023-08-26 20:02] LABS: Potassium 4.4 mmoL/L (3.5-5.1)
[2023-08-26 20:04] LABS: Alanine Aminotransferase 7 U/L (12-78); Alkaline Phosphatase 86 U/L (38-126); Anion Gap 8.4 mEq/L (5-15); Aspartate Amino Transferase 16 U/L (14-36); Bilirubin,Total 0.3 mg/dl (0.2-1.3); Blood Urea Nitrogen 49 mg/dl (7-17); Carbon Dioxide 32 mmol/L (22.0-30.0); Creatinine Clearance Estimated 13 mL/min (50-200); Estimated Glomerular Filt Rate 15 ml/min (>60); GFR (African American) 18 ML/MIN (>60); Lactic Acid 0.9 mmol/L (0.7-2.1); Lipase 51 U/L (23-300)
[2023-08-26 20:05] LABS: Albumin/Globulin Ratio 0.9 (1.1-1.8); Calcium 8.6 mg/dl (8.4-10.2); Globulin 3.4 g/dL (1.3-3.2); Glucose 101 mg/dl (74-100); Total Protein,Serum 6.4 g/dl (6.3-8.2)
--- NOTE | 2023-08-26 20:09 | PC.NURSE ---
BLANCA called back in reference to patients GFR being 15, told BLANCA I will have Dr. Acuña call them when he gets out of a patient room
[2023-08-26 20:14] LABS: NT Pro Brain Natriuretic Pep. 462 pg/mL (0-450)
[2023-08-26 20:16] LABS: Troponin I 0.02 ng/ml (0.00-0.034)
--- NOTE | 2023-08-26 20:25 | CT_ITS ---
PROCEDURE INFORMATION: Exam: CT Abdomen And Pelvis Without Contrast Exam date and time: 08/26/2023 8:28 PM Age: 83 years old Clinical indication: Abdominal pain; Additional info: Abd pain lower TECHNIQUE: Imaging protocol: Computed tomography of the abdomen and pelvis without contrast. Radiation optimization: All CT scans at this facility use at least one of these dose optimization techniques: automated exposure control; mA and/or kV adjustment per patient size (includes targeted exams where dose is matched to clinical indication); or iterative reconstruction. COMPARISON: CT ABDOMEN PELVIS WO CON 07/18/2023 4:38 PM FINDINGS: Liver: Normal. No mass. Gallbladder and biliary ducts: Normal. No calcified stones. No ductal dilation. Pancreas: Normal. No ductal dilation. Spleen: Normal. No splenomegaly. Adrenal glands: Normal. No mass. Kidneys and ureters: Mild left perinephric fatty stranding. Diffuse wall thickening of the left ureter. Right kidney appears unremarkable. No urolithiasis or hydronephrosis. Stomach and bowel: Moderate fecal retention throughout the colon. Moderate sigmoid diverticulosis. No bowel wall thickening or evidence of bowel obstruction. Appendix: No evidence of appendicitis. Intraperitoneal space: Unremarkable. No free air. No significant fluid collection. Vasculature: Moderate atherosclerotic calcification throughout the aorta and iliac arteries. No evidence of aneurysm. Lymph nodes: Unremarkable. No enlarged lymph nodes. Urinary bladder: Unremarkable as visualized. Reproductive: Uterus is surgically absent. There are 2 stable right adnexal cysts, each measuring approximately 2.3 cm in diameter. Bones/joints: Moderate degenerative changes throughout the lower spine. No vertebral body compression or acute fracture. Soft tissues: Unremarkable. IMPRESSION: Findings concerning for left urinary tract infection including mild left perinephric fatty stranding and diffuse left ureteral wall thickening. Findings appear similar to the prior study. Other stable findings as noted.
--- NOTE | 2023-08-26 21:25 | PC.NURSE ---
Called house to request bed for admission
--- NOTE | 2023-08-26 21:48 | PC.NURSE ---
Nurse to Nurse report to Kimberly
--- NOTE | 2023-08-26 21:52 | PC.NURSE ---
Family reported abd pain reported to MD no new orders at the time
--- NOTE | 2023-08-26 22:05 | PC.NURSE ---
Notified house storage administrator that transfer orders were placed, house to process transfer orders at this time.
--- NOTE | 2023-08-26 22:06 | PC.NURSE ---
RECEIVED PHONE REPORT FROM HENRI RN/ED NURSE AT 2140. PATIENT ARRIVED PER STRETCHER AT 2205. ADMITTED TO ROOM 211. DIAGNOSIS YAMEL.
--- NOTE | 2023-08-26 22:07 | PC.NURSE ---
Patient arrive to floor via stretcher from ED at 22:06.
[2023-08-26] MEDS: LACTATED RINGERS 1000ML 1,000 ML 100 ML IV (23:08)
[2023-08-26] MEDS: CEFTRIAXONE SODIUM 1 GM in 0.9 % SODIUM CHLORIDE 50 ML IV (23:10)
[2023-08-26 23:16] LABS: Troponin I 0.02 ng/ml (0.00-0.034)
[2023-08-27 04:00] VITALS: BP 96/51; PULSE 75; RESP 18; TEMP 36.9; O2SAT 93; BMI 24.0
--- NOTE | 2023-08-27 05:12 | PC.NURSE ---
RESTING IN BED. C/O INTERMITTANT CRAMPING IN LOWER ABDOMEN. sAYS SHE HAS A UTI. NPO UNTIL BREAKFASR.VITAL SIGNS STABLR, AFEBRILTK
[2023-08-27 06:38] LABS: Troponin I 0.02 ng/ml (0.00-0.034)
[2023-08-27 08:00] VITALS: BP 123/55; PULSE 81; RESP 18; TEMP 36.9; O2SAT 95
--- NOTE | 2023-08-27 08:56 | HMH.PHAINT1 ---
Pharmacy Intervention Comments: MEDICATION RECONCILIATION COMPLETED ON PATIENT USING EXTERNAL FILL HISTORY FROM PHARMACY. -KRISTEN HORNE, BENNYD
[2023-08-27] MEDS: LACTATED RINGERS 1000ML 1,000 ML 100 ML IV ×2 (09:12→21:56)
--- NOTE | 2023-08-27 10:21 | EXP.HP ---
History of Present Illness *Admission Date: 08/26/23 *Reason for visit:: Abd pain *History of present illness: Mrs. Najera is an 83 year old patient of [facility], who typically sees Dr. Justice for her primary care. She presented to [facility] ER yesterday afternoon complaining of lower abdominal pain for a few days. She had noticed some dysuria as well. She denies fever and chills. She does have problems with chronic constipation and has a history of pyelonephritis. [facility] Disclaimer: The information contained in this section may have been updated after the patient was seen, as this information can be updated by other users. Medical History Pyelonephritis GI bleed Chronic constipation CKD (chronic kidney disease) stage 3, GFR 30-59 ml/min Coronary artery disease Ischemic cardiomyopathy ASCVD (arteriosclerotic cardiovascular disease) Systolic heart failure Cardiomyopathy CHF (congestive heart failure) HLD (hyperlipidemia) Hypertension Left bundle branch block (LBBB) determined by electrocardiography NSTEMI (non-ST elevated myocardial infarction) Surgical History History of cardiac cath S/P partial hysterectomy Family History No significant family history Social History Smoking Status: Never smoker alcohol intake: never current occupational status: retired Travel in the last 8 weeks: None Review of Systems Constitutional Constitutional: Denies chills, Denies fever(s) and Denies headache(s) ENT Ears, Nose, Mouth, and Throat: Denies headache(s) *Cardiovascular Cardiovascular: Denies chest pain and Denies dyspnea *Respiratory Respiratory: Denies dyspnea *Gastrointestinal Gastrointestinal: Reports constipation and Denies heartburn *Genitourinary Genitourinary: Reports urinary incontinence *Musculoskeletal Musculoskeletal: Denies myalgias *Neurologic Neurologic: Denies headache(s) Meds Home Medications and Allergies Home Medications Medication Instructions Recorded Confirmed Type aspirin 81 mg chewable tablet 81 mg PO DAILY 03/11/23 08/26/23 History atorvastatin 40 mg tablet 40 mg PO HS 03/11/23 08/26/23 History carvedilol 3.125 mg tablet 3.125 mg PO BID 03/11/23 08/26/23 History clopidogrel 75 mg tablet 75 mg PO DAILY 03/11/23 08/26/23 History ropinirole 0.5 mg tablet 0.5 mg PO HS 03/11/23 08/26/23 History spironolactone 25 mg tablet 25 mg PO DAILY 03/11/23 08/26/23 History furosemide 40 mg tablet 40 mg PO DAILY 04/21/23 08/26/23 History trazodone 50 mg tablet 25 - 50 mg PO HSP PRN Insomnia 04/21/23 08/26/23 History sacubitril 49 mg-valsartan 51 mg 1 tab PO BID #60 tabs 05/07/23 08/26/23 Rx tablet (Entresto) clonazepam 0.5 mg tablet 0.5 mg PO HSP PRN Insomnia 07/19/23 08/27/23 History New Prescriptions to Start Prescriptions: Allergies Allergy/AdvReac Type Severity Reaction Status Date / Time promethazine Allergy Intermediate severe Verified 05/19/23 13:37 vomiting Penicillins Allergy Verified 05/19/23 13:36 Sulfa (Sulfonamide Allergy Verified 05/19/23 13:36 Antibiotics) triprolidine Allergy Verified 05/19/23 13:36 Exam Data for Last 24 hours Vital signs and Labs for Last 24 Hours: Temp Pulse Resp BP Pulse Ox O2 Del Method 98.5 F 81 18 123/55 L 95 Room Air 08/27/23 08:00 08/27/23 08:00 08/27/23 08:00 08/27/23 08:00 08/27/23 08:00 08/27/23 09:00 Laboratory Results - last 24 hr 08/26/23 15:00: WBC Cancelled, Corrected WBC Cancelled, RBC Cancelled, Hgb Cancelled, Hct Cancelled, MCV Cancelled, MCH Cancelled, MCHC Cancelled, RDW Cancelled, Plt Count Cancelled, MPV Cancelled, Neut % (Auto) Cancelled, Lymph % (Auto) Cancelled, [place] % (Auto) Cancelled, Eos % (Auto) Cancelled, Baso % (Auto) Cancelled, Neut # (Auto) Cancelled, Lymph # (Auto) Cancelled, [place] # (Auto) Cancelled, Eos # (Auto) Cancelled, Baso # (Auto) Cancelled, Lipase Cancelled 08/26/23 16:00: WBC 9.9, RBC 3.76 L, Hgb 10.4 L, Hct 32.0 L, MCV 85.1, MCH 27.7, MCHC 32.6, RDW 18.8 H, Plt Count 222, MPV 7.8, Neut % (Auto) 73.0, Lymph % (Auto) 18.4, [place] % (Auto) 5.7, Eos % (Auto) 2.0, Baso % (Auto) 0.8, Neut # (Auto) 7.2, Lymph # (Auto) 1.8, [place] # (Auto) 0.6, Eos # (Auto) 0.2, Baso # (Auto) 0.1, Blood Type A Positive, Antibody Screen Negative 08/26/23 18:48: Urine Color Yellow, Urine Appearance Cloudy, Urine pH 6.0, Ur Specific Oriental 1.015, Urine Protein 1+, Urine Glucose (UA) Negative, Urine Ketones Negative, Urine Blood 2+, Urine Nitrate Negative, Urine Bilirubin Negative, Urine Urobilinogen 0.2, Ur Leukocyte Esterase 2+ A, Urine RBC 5-10, Urine WBC 20-50, Ur Squamous Epith Cells None, Urine Bacteria None 08/26/23 19:40: Sodium 139, Potassium 4.4, Chloride 103, Carbon Dioxide 32 H, Anion Gap 8.4, BUN 49 H, Creatinine 3.00 H, Estimated Creat Clear 13, Estimated GFR 15 L*, Est GFR ( Amer) 18 L*, Glucose 101 H, Lactate 0.9, Calcium 8.6, Total Bilirubin 0.3, AST 16, ALT 7 L, Alkaline Phosphatase 86, Troponin I 0.02, NT-Pro-B Natriuret Pep 462 H, Total Protein 6.4, Albumin 3.0 L, Globulin 3.4 H, Albumin/Globulin Ratio 0.9 L, Lipase 51 08/26/23 22:47: Troponin I 0.02 08/27/23 05:40: Troponin I 0.02 I & O for Last 24 hours: Intake & Output 08/24/23 08/25/23 08/26/23 08/27/23 23:59 23:59 23:59 23:59 Intake Total 883 / 883 Output Total 0 / 0 Balance 883 / 883 Weight 141 lb 2 oz 141 lb Constitutional Constitutional: no acute distress, chronically ill appearing (frail) and cooperative *Routine HEENT Exam Head: Present normocephalic Eye: Present EOMI and PERRL ENT: Present mucous membranes moist *Routine Neck Exam Neck: Present supple; Absent JVD or lymphadenopathy *Routine Respiratory Exam Respiratory: Present CTA bilaterally *Routine Cardiovascular Exam Cardiovascular: Present RRR and murmur (I/ systolic) *Routine Abdominal Exam Abdominal: Present soft, normoactive bowel sounds and tenderness (minimal periumbilical) *Routine Rectal Exam Rectal:: deferred *Routine Genitalia Exam Genitalia:: deferred *Routine Extremities Exam Extremities: Absent cyanosis, clubbing or edema *Routine Skin Exam Skin: Present warm; Absent rash *Routine Neurological Exam Neurological: Present alert and oriented X3 H&P: Result Imaging and Cardiology CT scan - abdomen: Status: final report Assessment and Plan *Assessment and plan (1) Generalized weakness: Status: Acute Category: Medical Code(s): R53.1 - Weakness (2) Acute pyelonephritis: Status: Acute Category: Medical Code(s): N10 - Acute pyelonephritis (3) YAMEL (acute kidney injury): Status: Acute Category: Medical Code(s): N17.9 - Acute kidney failure, unspecified (4) CKD (chronic kidney disease) stage 3, GFR 30-59 ml/min: Status: Acute Category: Medical Code(s): N18.30 - Chronic kidney disease, stage 3 unspecified (5) Urinary tract infectious disease: Status: Acute Qualifiers: Hematuria presence: with hematuria Urinary tract infection type: site unspecified Qualified Code(s): N39.0 - Urinary tract infection, site not specified; R31.9 - Hematuria, unspecified Category: Medical Code(s): N39.0 - Urinary tract infection, site not specified (6) Constipation: Status: Acute Category: Medical Code(s): K59.00 - Constipation, unspecified (7) Ischemic cardiomyopathy: Status: Acute Category: Medical Code(s): I25.5 - Ischemic cardiomyopathy Plan Patient admitted for further evaluation of her dehydration and UTI/pyelonephritis. Will continue Rocephin for now and will await cultures.
[2023-08-27] MEDS: ENOXAPARIN 30MG/0.3ML SYRINGE 30 MG SQ (10:54)
[2023-08-27] MEDS: ASPIRIN 81MG CHEWABLE TABLET 81 MG PO (10:55)
[2023-08-27] MEDS: FAMOTIDINE 20MG TABLET 20 MG PO ×2 (10:55→20:34)
--- NOTE | 2023-08-27 14:17 | PC.NURSE ---
Patient complaining of leg Twitching . Dr. Jenkins paged regarding ordering pts home dose of Tramadol for restless leg. Verbal order of Tramadol 50mg PO q6PRN for leg pain received
[2023-08-27] MEDS: TRAMADOL 50MG TABLET 50 MG PO ×2 (14:24→20:34)
--- NOTE | 2023-08-27 15:50 | PC.NURSE ---
pt is resting in bed at the moment. caregiver and have been at beside majority of the shift. pt is receiving LR @ 100. Pt ambulated with assistance in the room today around 1500 and tolerated well. Also ambulated a lap in the hallway at 1600. pt complained of leg pain this morning and verbalized that she takes tramadol at home for this. Dr. Linda was paged and an order of Tramadol 50mg PO Q6HR PRN was ordered. pt recieved dose at 1424. pressure area covered with mepilex present on coccyx upon admission. NSR, VSS.
[2023-08-27 16:00] VITALS: BP 112/62; PULSE 79; RESP 18; TEMP 37.2; O2SAT 100
--- OUTSIDE RECORDS SUMMARY | 2023-08-27 16:32 | XMS_ITS | Patient Health Record ---
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 Name Role Phone JENIFER JAMES Unavailable [phone] Reason For Referral No Information Social History Tobacco Use: Social History Observation Description Date Smoking Status WARNING: Information temporarily unavailable Tobacco Status: Question Answer Notes Patient is a never smoker Encounters Encounter Location Date Provider Diagnosis [id number] [facility] [address] [place] [id number] 02/18/2023 JENIFER JAMES Plan Of Treatment No Information Insurance Providers Payer Name Payer Address Payer Phone Subscriber Number Group Number Insured Name Patient Relationship to Insured Coverage Start Date Coverage End Date [employer] NON-HMO [address] [place], [place] [id number] Barbara Hopkins Self - patient is the insured MEDICARE [place] PART B [address] [place], [place] [id number] Mushtaq christensen Barbara Self - patient is the insured
[2023-08-27] MEDS: ACETAMINOPHEN 325MG TAB 650 MG PO (16:55)
--- NOTE | 2023-08-27 18:11 | PC.NURSE ---
pt continues to complain of leg pain and irritation. Administered tylenol per APR at 1655.
[2023-08-27 20:00] VITALS: BP 129/64; PULSE 73; RESP 16; TEMP 36.9; O2SAT 100
[2023-08-27 20:34] VITALS: O2SAT 100
[2023-08-27] MEDS: ROPINIROLE 1MG TABLET 0.5 MG PO (20:34)
[2023-08-27] MEDS: CEFTRIAXONE 1 GM 1 GM in 0.9 % SODIUM CHLORIDE 50 ML IV (20:34)
[2023-08-27] MEDS: ATORVASTATIN 40MG TABLET 40 MG PO (20:34)
[2023-08-27] MEDS: clonazePAM 0.5MG TABLET 0.5 MG PO (20:34)
[2023-08-28 04:00] VITALS: BP 129/62; PULSE 65; RESP 16; TEMP 36.8; O2SAT 95; BMI 20.9
[2023-08-28 06:21] LABS: Basophils # 0.1 K/mm3 (0-0.2); Eosinophils # 0.2 K/mm3 (0.0-0.4); Eosinophils % 2.5 % (0.1-12.0); Hematocrit 28.7 % (37.0-47.0); Hemoglobin 9.3 g/dL (12.2-16.2); Lymphocytes # 2.2 K/mm3 (0.7-4.5); Lymphocytes % 29.6 % (10-50); Mean Corpuscular HGB Conc 32.4 g/dL (31.8-35.4); Mean Corpuscular Hemoglobin 27.5 pg (27.0-31.2); Monocytes # 0.4 K/mm3 (0.1-1.0); Monocytes % 5.9 % (1.7-9.3); Neutrophils # 4.5 K/mm3 (1.8-7.8); Neutrophils % 60.9 % (37.0-80.0); Platelet Count 199 K/mm3 (142-424); Red Blood Count 3.37 M/mm3 (4.20-5.40); Red Cell Distribution Width 19.2 % (11.5-17.5); White Blood Count 7.4 K/mm3 (4.8-10.8)
--- NOTE | 2023-08-28 06:21 | PC.NURSE ---
Patient alert and oriented x4 upon initial 1999 assessment. However, in the middle of the night when patient got up to use the restroom, patient stated she was confused and was unsure of where she was and was asking for her . Patient was informed she was in the hospital and her was at home sleeping. Bed alarm was then turned on for patient safety. Patient had frequent complaints during waking hours of RLS pain. Ambulated halls frequently with staff and certified personal trainer. Tolerating room air well. No other needs or complaints expressed. Call light within reach.
[2023-08-28 06:23] LABS: Chloride 108 mmol/L (98-107); Potassium 3.6 mmoL/L (3.5-5.1); Sodium 141 mmol/L (136-145)
[2023-08-28 06:26] LABS: Anion Gap 7.6 mEq/L (5-15); Blood Urea Nitrogen 35 mg/dl (7-17); Carbon Dioxide 29 mmol/L (22.0-30.0); Creatinine Clearance Estimated 29 mL/min (50-200); Estimated Glomerular Filt Rate 39 ml/min (>60); GFR (African American) 47 ML/MIN (>60)
[2023-08-28 06:27] LABS: Calcium 8.4 mg/dl (8.4-10.2); Glucose 83 mg/dl (74-100)
[2023-08-28 07:34] VITALS: BP 104/53; PULSE 63; RESP 18; TEMP 36.7; O2SAT 94
[2023-08-28] MEDS: LACTATED RINGERS 1000ML 1,000 ML 100 ML IV (08:21)
[2023-08-28] MEDS: FAMOTIDINE 20MG TABLET 20 MG PO (08:21)
[2023-08-28] MEDS: ENOXAPARIN 30MG/0.3ML SYRINGE 30 MG SQ (08:21)
[2023-08-28] MEDS: ASPIRIN 81MG CHEWABLE TABLET 81 MG PO (08:21)
--- NOTE | 2023-08-28 08:31 | EXP.ACUTE.PN ---
Subjective *Date: 08/28/23 *Time: 08:46 Interval history: Patient is feeling better today. She denies any pain. She slept well and is eating well this am. Her symptoms are improving. Medical Exam Vital signs and Labs for Last 24 Hours: Vital Signs Temp Pulse Resp BP Pulse Ox O2 Del Method 08/28/23 07:34 98.1 F 63 18 104/53 L 94 L Room Air 08/28/23 06:43 Room Air 08/28/23 05:00 Room Air 08/28/23 04:00 98.2 F 65 16 129/62 95 Room Air 08/28/23 03:00 Room Air 08/28/23 01:04 Room Air 08/27/23 23:00 Room Air 08/27/23 21:00 Room Air 08/27/23 20:34 100 Room Air 08/27/23 20:00 98.4 F 73 16 129/64 100 Room Air 08/27/23 18:50 Room Air 08/27/23 17:00 Room Air 08/27/23 16:00 98.9 F 79 18 112/62 100 Room Air 08/27/23 15:00 Room Air 08/27/23 13:00 Room Air 08/27/23 11:00 Room Air 08/27/23 09:00 Room Air Intake and Output 08/27/23 08/28/23 08/28/23 19:59 03:59 11:59 Intake Total 397 / 1453 132 / 1453 924 / 1453 Output Total 150 / 150 0 / 150 0 / 150 Balance 247 / 1303 132 / 1303 924 / 1303 Intake: Intake, Oral Amount 260 / 260 Intake, Total IV Amount 137 / 1193 132 / 1193 924 / 1193 Ceftriaxone Sodium 1 gm In 0.9 50 / 50 % Sodium Chloride 50 ml @ 100 mls/hr IV ONCE ONE Rx#:[id number] Lactated Ringers 1000ML 1,000 137 / 1143 82 / 1143 924 / 1143 ml @ 100 mls/hr IV .Q10H [facility] Rx #:[id number] Output: Output, Urine Amount 150 / 150 0 / 150 0 / 150 Other: Number of Unmeasured Voids 2 1 1 Number of Bowel Movements 1 Weight 123 lb Patient Weight 08/28/23 11:59 Weight 123 lb Laboratory Results - last 24 hr 08/28/23 05:10: WBC 7.4 D, RBC 3.37 L, Hgb 9.3 L, Hct 28.7 L, MCV 85.0, MCH 27.5, MCHC 32.4, RDW 19.2 H, Plt Count 199, MPV 8.0, Neut % (Auto) 60.9, Lymph % (Auto) 29.6, Nash % (Auto) 5.9, Eos % (Auto) 2.5, Baso % (Auto) 1.0, Neut # (Auto) 4.5, Lymph # (Auto) 2.2, Nash # (Auto) 0.4, Eos # (Auto) 0.2, Baso # (Auto) 0.1, Sodium 141, Potassium 3.6, Chloride 108 H, Carbon Dioxide 29, Anion Gap 7.6, BUN 35 H D, Creatinine 1.30 H D, Estimated Creat Clear 29, Estimated GFR 39 L, Est GFR ( Amer) 47 L D, Glucose 83, Calcium 8.4 I & O for Labs for Last 24 Hours: Intake & Output 08/25/23 08/26/23 08/27/23 08/28/23 11:59 11:59 11:59 11:59 Intake Total 883 / 883 1453 / 1453 Output Total 0 / 0 150 / 150 Balance 883 / 883 1303 / 1303 Weight 141 lb 123 lb Microbiology Reports for the Last 24 Hours: Microbiology 08/26/23 19:40 Blood Blood Culture - Preliminary NO GROWTH AFTER 24 HOURS 08/26/23 15:12 Blood Blood Culture - Preliminary NO GROWTH AFTER 24 HOURS Constitutional: Present no acute distress Respiratory: Present CTA bilaterally Cardiac: Present Reg Rate and Rhythm GI: Present soft; Absent distention or tenderness Extremities: Absent edema Skin: Present intact Neuro: Present alert, awake and oriented x 3 Assessment and Plan *Assessment and plan (1) Generalized weakness: Status: Acute Category: Medical Code(s): R53.1 - Weakness (2) Acute pyelonephritis: Status: Acute Category: Medical Code(s): N10 - Acute pyelonephritis (3) YAMEL (acute kidney injury): Status: Acute Category: Medical Code(s): N17.9 - Acute kidney failure, unspecified (4) CKD (chronic kidney disease) stage 3, GFR 30-59 ml/min: Status: Acute Category: Medical Code(s): N18.30 - Chronic kidney disease, stage 3 unspecified (5) Urinary tract infectious disease: Status: Acute Qualifiers: Hematuria presence: with hematuria Urinary tract infection type: site unspecified Qualified Code(s): N39.0 - Urinary tract infection, site not specified; R31.9 - Hematuria, unspecified Category: Medical Code(s): N39.0 - Urinary tract infection, site not specified (6) Constipation: Status: Acute Category: Medical Code(s): K59.00 - Constipation, unspecified (7) Ischemic cardiomyopathy: Status: Acute Category: Medical Code(s): I25.5 - Ischemic cardiomyopathy Plan Preliminary blood cultures show no growth. Awaiting urine cultures. Will continue abx. Renal function is much better today. Patient is improving. Dr. Linda entry - Saw patient, agree with above note. She has improved, OK for discharge home today, will oral antibiotic treatment for UTI.
--- NOTE | 2023-08-31 13:18 | CARE MANAGER ---
Left message for post-discharge follow-up phone call.
--- NOTE | 2023-09-01 13:23 | CARE MANAGER ---
Attempted to contact patient related to hospital discharge x 2. Left VM message. BRITTNI Odonnell
--- NOTE | 2023-09-04 16:17 | P.DS_ITS ---
General Admission date:: 08/26/23 Discharge date: 08/28/23 HPI HPI HPI: Mrs. Najera is an 83 year old patient of [facility], who typically sees Dr. Justice for her primary care. She presented to [facility] ER yesterday afternoon complaining of lower abdominal pain for a few days. She had noticed some dysuria as well. She denies fever and chills. She does have problems with chronic constipation and has a history of pyelonephritis. Hospital Course Hospital Course Hospital Course: The patient was admitted for further evaluation of dehydration and UTI/pyelonephritis. She was started on Rocephin. By 08/28/2023, she was feeling better and denied any pain. She was sleeping and eating well and her symptoms were improving. Her blood culture showed no growth and her renal function improved. It was felt she was stable to be discharged home on oral antibiotics for treatment of her UTI. Of note, her urine culture did return positive for yeast. Exam Data for Last 24 hours Vital signs and Labs for Last 24 Hours: Temp Pulse Resp BP Pulse Ox O2 Del Method 98.1 F 63 18 104/53 L 94 L Room Air 08/28/23 07:34 08/28/23 07:34 08/28/23 07:34 08/28/23 07:34 08/28/23 07:34 08/28/23 09:00 Narrative: Constitutional Constitutional: no acute distress, chronically ill appearing (frail) and cooperative *Routine HEENT Exam Head: Present normocephalic Eye: Present EOMI and PERRL ENT: Present mucous membranes moist *Routine Neck Exam Neck: Present supple; Absent JVD or lymphadenopathy *Routine Respiratory Exam Respiratory: Present CTA bilaterally *Routine Cardiovascular Exam Cardiovascular: Present RRR and murmur (I/ systolic) *Routine Abdominal Exam Abdominal: Present soft, normoactive bowel sounds and tenderness (minimal periumbilical) *Routine Rectal Exam Rectal:: deferred *Routine Genitalia Exam Genitalia:: deferred *Routine Extremities Exam Extremities: Absent cyanosis, clubbing or edema *Routine Skin Exam Skin: Present warm; Absent rash *Routine Neurological Exam Neurological: Present alert and oriented X3 DS: Diagnosis Discharge Diagnosis (1) Generalized weakness: Status: Acute Code(s): R53.1 - Weakness (2) Acute pyelonephritis: Status: Acute Code(s): N10 - Acute pyelonephritis (3) YAMEL (acute kidney injury): Status: Acute Code(s): N17.9 - Acute kidney failure, unspecified (4) CKD (chronic kidney disease) stage 3, GFR 30-59 ml/min: Status: Acute Code(s): N18.30 - Chronic kidney disease, stage 3 unspecified (5) Urinary tract infectious disease: Status: Acute Code(s): N39.0 - Urinary tract infection, site not specified Qualifiers: Hematuria presence: with hematuria Urinary tract infection type: site unspecified Qualified Code(s): N39.0 - Urinary tract infection, site not specified; R31.9 - Hematuria, unspecified (6) Constipation: Status: Acute Code(s): K59.00 - Constipation, unspecified (7) Ischemic cardiomyopathy: Status: Acute Code(s): I25.5 - Ischemic cardiomyopathy Meds Home Medications and Allergies Home Medications Medication Instructions Recorded Confirmed Type aspirin 81 mg chewable tablet 81 mg PO DAILY 03/11/23 08/26/23 History atorvastatin 40 mg tablet 40 mg PO HS 03/11/23 08/26/23 History carvedilol 3.125 mg tablet 3.125 mg PO BID 03/11/23 08/26/23 History clopidogrel 75 mg tablet 75 mg PO DAILY 03/11/23 08/26/23 History ropinirole 0.5 mg tablet 0.5 mg PO HS 03/11/23 08/26/23 History spironolactone 25 mg tablet 25 mg PO DAILY 03/11/23 08/26/23 History furosemide 40 mg tablet 40 mg PO DAILY 04/21/23 08/26/23 History trazodone 50 mg tablet 25 - 50 mg PO HSP PRN Insomnia 04/21/23 08/26/23 History clonazepam 0.5 mg tablet 0.5 mg PO HSP PRN Insomnia 07/19/23 08/27/23 History cefuroxime axetil 500 mg tablet 500 mg PO BID #20 tabs 08/28/23 Rx sacubitril 49 mg-valsartan 51 mg See Rx Instructions .Route 09/01/23 Rx tablet (Entresto) .COMPLEX #180 tabs New Prescriptions to Start Prescriptions: cefuroxime axetil [place] Allergies Allergy/AdvReac Type Severity Reaction Status Date / Time promethazine Allergy Intermediate severe Verified 05/19/23 13:37 vomiting Penicillins Allergy Verified 05/19/23 13:36 Sulfa (Sulfonamide Allergy Verified 05/19/23 13:36 Antibiotics) triprolidine Allergy Verified 05/19/23 13:36 Discharge Plan Disposition Patient Disposition: Home, Self-Care Condition: Fair Discharge Order Discharge Orders: Discharge Order (Routine); Ordered 08/28/23 Ordered By: Hollis Linda Follow up Plan Follow up with: Rufus Justice MD [Primary Care Provider] - 09/17/23 11:30 am Prescriptions/Medication Reconciliation: New cefuroxime axetil 500 mg tablet 500 mg PO BID Qty: 20 0RF Continued furosemide 40 mg tablet 40 mg PO DAILY Hold Instructions: Pending follow-up with PCP or cardiology Patient Comments: TAKE ONE TABLET BY MOUTH EVERY DAY trazodone 50 mg tablet 25 - 50 mg PO HSP PRN (Reason: Insomnia) Patient Comments: TAKE 1/2 TO 1 TABLET BY MOUTH EVERY DAY AT BEDTIME NEEDED atorvastatin 40 mg tablet 40 mg PO HS clopidogrel 75 mg tablet 75 mg PO DAILY spironolactone 25 mg tablet 25 mg PO DAILY carvedilol 3.125 mg tablet 3.125 mg PO BID ropinirole 0.5 mg tablet 0.5 mg PO HS aspirin 81 mg tablet,chewable 81 mg PO DAILY clonazepam 0.5 mg tablet 0.5 mg PO HSP PRN (Reason: Insomnia) Patient Comments: TAKE 1 TABLET BY MOUTH AT BEDTIME NEEDED No Action Entresto 49-51 mg tablet See Rx Instructions .ROUTE .COMPLEX Qty: 180 3RF Dose Instruction: Take 1 tablet by mouth twice daily Rx Instructions: Take 1 tablet by mouth twice daily Problem Reconciliation Problems Reviewed?: Yes Patient Discharge Instructions ACTIVITY: Continue current activity DIET: continue same diet Patient Instructions: DI for Urinary Tract Infection (UTI), DI for Acute Kidney Injury Providers Primary Care Provider: Rufus Justice Admit Provider: Hollis Linda Attending Provider: Hollis Linda
== END 2023-08-28 10:21 | disposition home or self-care (01) | DRG 690 ==
LOC: ER 15:26 → 2ND 21:42
PROVIDERS: Admitting Provider Family Medicine; Emergency Provider Emergency Medicine; PCP Family Medicine; Visit Provider Family Medicine
DX: N10 Acute pyelonephritis (principal); I13.0 Hypertensive heart and chronic kidney disease with heart failure and stage 1 through stage 4 chronic kidney disease, or unspecified chronic kidney disease; I50.22 Chronic systolic (congestive) heart failure; N17.9 Acute kidney failure, unspecified; N18.30 Chronic kidney disease, stage 3 unspecified; R31.9 Hematuria, unspecified; I25.5 Ischemic cardiomyopathy; I25.2 Old myocardial infarction; E78.5 Hyperlipidemia, unspecified; I25.10 Atherosclerotic heart disease of native coronary artery without angina pectoris; K59.09 Other constipation; E86.0 Dehydration
CPT/HCPCS: 36556; 36415; 71045; 74176; 80048; 80053; 81001; 83605; 83690; 83880; 84484; 85025; 86850; 87040; 87086; 93005; 99291; J0696; J1650; J2765; J7120

== ENCOUNTER 2023-09-14 15:28 | Observation (INO) | payer MEDICARE, BC, SELFPAY ==
[2023-09-14 15:28] VITALS: BP 145/84; PULSE 76; RESP 18; TEMP 36.5; O2SAT 100; BMI 17.3
--- NOTE | 2023-09-14 15:35 | PC.NURSE ---
DR JONES AT BEDSIDE
--- NOTE | 2023-09-14 15:39 | HMH.EDGENADL ---
Discharge Plan Disposition Patient Disposition: Admitted Prescriptions Prescriptions: No Action furosemide 40 mg tablet 40 mg PO DAILY Hold Instructions: Pending follow-up with PCP or cardiology Patient Comments: TAKE ONE TABLET BY MOUTH EVERY DAY trazodone 50 mg tablet 25 - 50 mg PO HSP PRN (Reason: Insomnia) Patient Comments: TAKE 1/2 TO 1 TABLET BY MOUTH EVERY DAY AT BEDTIME NEEDED Entresto 49-51 mg tablet See Rx Instructions .ROUTE .COMPLEX Qty: 180 3RF Dose Instruction: Take 1 tablet by mouth twice daily Rx Instructions: Take 1 tablet by mouth twice daily atorvastatin 40 mg tablet 40 mg PO HS clopidogrel 75 mg tablet 75 mg PO DAILY spironolactone 25 mg tablet 25 mg PO DAILY carvedilol 3.125 mg tablet 3.125 mg PO BID ropinirole 0.5 mg tablet 0.5 mg PO HS aspirin 81 mg tablet,chewable 81 mg PO DAILY cefuroxime axetil 500 mg tablet 500 mg PO BID Qty: 20 0RF clonazepam 0.5 mg tablet 0.5 mg PO HSP PRN (Reason: Insomnia) Patient Comments: TAKE 1 TABLET BY MOUTH AT BEDTIME NEEDED Clinical Impressions Clinical Impression: YAMEL (acute kidney injury), Nausea and vomiting, Moderate dehydration Instructions Patient Instructions: DI for Diarrhea and Traveler's Diarrhea -- Adult, DI for Diarrhea and Traveler's Diarrhea -- Child, DI for Nausea -- Adult, DI for Nausea -- Child Discharge ED Provider: Camron Mcclure General Adult HPI General Chief complaint: Nausea/Vomiting/Diarrhea Stated complaint: weakness Time Seen by Provider: 09/14/23 15:35 History of Present Illness HPI narrative: Pt is an 83 yo F here with n/v x 24 hours. No other sx in cluding abd pain or chest pain. Denies other pmhx. No fevers chills etc. States sx have since gone away but she feels dehydrated. Lives at home with . Came in by ems. Related Data Home Medications Medication Instructions Recorded Confirmed aspirin 81 mg chewable tablet 81 mg PO DAILY 03/11/23 08/26/23 atorvastatin 40 mg tablet 40 mg PO HS 03/11/23 08/26/23 carvedilol 3.125 mg tablet 3.125 mg PO BID 03/11/23 08/26/23 clopidogrel 75 mg tablet 75 mg PO DAILY 03/11/23 08/26/23 ropinirole 0.5 mg tablet 0.5 mg PO HS 03/11/23 08/26/23 spironolactone 25 mg tablet 25 mg PO DAILY 03/11/23 08/26/23 furosemide 40 mg tablet 40 mg PO DAILY 04/21/23 08/26/23 trazodone 50 mg tablet 25 - 50 mg PO HSP PRN Insomnia 04/21/23 08/26/23 clonazepam 0.5 mg tablet 0.5 mg PO HSP PRN Insomnia 07/19/23 08/27/23 Previous Rx's Medication Instructions Recorded cefuroxime axetil 500 mg tablet 500 mg PO BID #20 tabs 08/28/23 sacubitril 49 mg-valsartan 51 mg See Rx Instructions .Route 09/01/23 tablet (Entresto) .COMPLEX #180 tabs Allergies Allergy/AdvReac Type Severity Reaction Status Date / Time promethazine Allergy Intermediate severe Verified 05/19/23 13:37 vomiting Penicillins Allergy Verified 05/19/23 13:36 Sulfa (Sulfonamide Allergy Verified 05/19/23 13:36 Antibiotics) triprolidine Allergy Verified 05/19/23 13:36 [facility] Disclaimer: The information contained in this section may have been updated after the patient was seen, as this information can be updated by other users. Medical History (Updated 09/14/23 @ 16:44 by Camron Mcclure MD) Pyelonephritis GI bleed Chronic constipation CKD (chronic kidney disease) stage 3, GFR 30-59 ml/min Coronary artery disease Ischemic cardiomyopathy ASCVD (arteriosclerotic cardiovascular disease) Systolic heart failure Cardiomyopathy CHF (congestive heart failure) HLD (hyperlipidemia) Hypertension Left bundle branch block (LBBB) determined by electrocardiography NSTEMI (non-ST elevated myocardial infarction) Surgical History History of cardiac cath S/P partial hysterectomy Family History No significant family history Social History Smoking Status: Never smoker alcohol intake: never current occupational status: retired Travel in the last 8 weeks: None ROS Obtained: Yes All systems reviewed & no additional complaints except as documented Physical Exam General General appearance: alert and in no apparent distress ENT ENT exam: Present other (dry mucous membranes ) Respiratory Respiratory exam: Present normal lung sounds bilaterally and respiratory distress Cardiovascular Cardiovascular exam: Present regular rate and normal rhythm Abdominal Exam Abdominal exam: Present soft; Absent distention or tenderness Neurological Exam Neurological exam: Present alert and oriented X3 Medical Decision Making Zbigniew Inquiry Pt receiving controlled substance: No Vital Signs: 09/14/23 15:28 09/14/23 16:00 Temperature 97.7 F Temperature Source Oral Pulse Rate 80 Pulse Rate [Radial] 76 Respiratory Rate 18 13 Blood Pressure 139/71 Blood Pressure [Left Arm] 145/84 H Blood Pressure Mean 117 Blood Pressure Mean [Left Arm] 104 Blood Pressure Source [Left Arm] Automatic Cuff Blood Pressure Position [Left Arm] Sitting 02 Sat by Pulse Oximetry 100 99 Oxygen Delivery Method Room Air Room Air Lab Data Lab results reviewed: Yes I reviewed the patient's lab results. Lab Results 09/14/23 15:39: WBC 8.8, RBC 4.29, Hgb 12.1 L, Hct 37.7, MCV 87.7, MCH 28.1, MCHC 32.1, RDW 19.5 H, Plt Count 409, MPV 7.5, Neut % (Auto) 68.3, Lymph % (Auto) 25.9, Hart % (Auto) 3.6, Eos % (Auto) 1.1, Baso % (Auto) 1.1, Neut # (Auto) 6.0, Lymph # (Auto) 2.3, [place] # (Auto) 0.3, Eos # (Auto) 0.1, Baso # (Auto) 0.1, Sodium 138, Potassium 4.2, Chloride 94 L, Carbon Dioxide 29, Anion Gap 19.2 H, BUN 55 H, Creatinine 2.30 H, Estimated Creat Clear 14, Estimated GFR 20 L, Est GFR ( Amer) 25 L, Glucose 68 L, Calcium 9.7, Phosphorus 4.7 H, Magnesium 2.3, Total Bilirubin 0.7, AST 27, ALT 12, Alkaline Phosphatase 76, Troponin I 0.03, Total Protein 7.8, Albumin 4.1, Globulin 3.7 H, Albumin/Globulin Ratio 1.1 09/14/23 15:39 09/14/23 15:39 Orders (Tests/Meds): ED MEDICATIONS Generic Name Dose Route Start Last Admin Trade Name Naun PRN Reason Stop Dose Admin Lactated Ringer's 1,000 mls @ 999 mls/hr 09/14/23 15:45 09/14/23 15:47 Lactated Ringer's 1000 Ml Bag IV 09/14/23 16:45 999 mls/hr .Q1H1M SHAINA Administration Discontinued Medications Generic Name Dose Route Start Last Admin Trade Name Naun PRN Reason Stop Dose Admin Ondansetron HCl 4 mg 09/14/23 15:38 09/14/23 15:47 Ondansetron 4mg/2ml Vial IV 09/14/23 15:39 4 mg ONCE ONE Administration ORDERS Category Date Time Status CBC w/Auto Diff [Complete Blood Count Auto Diff] Stat Lab 09/14/23 15:39 Completed CMP [Comprehensive Metabolic Panel] Stat Lab 09/14/23 15:39 Completed Magnesium Stat Lab 09/14/23 15:39 Completed Phosphorous Stat Lab 09/14/23 15:39 Completed Trop I [Troponin I] Stat Lab 09/14/23 15:39 Completed Troponin I Q3H Lab 09/14/23 18:45 Ordered Troponin I Q3H Lab 09/14/23 21:45 Ordered Medical Decision Narrative: 83 yo with n/v x 24 hours now resolved but appears clincally dehydrated. IVF zofran and labs and will reassess. Not c/w ACS, surgical pathology etc, most likely viral or food poisoning. Reassessment 444 patient's serial abdominal exams are benign she still has no pain. Labs demonstrate an acute kidney injury with a creatinine of 2.3 up from most recent baseline of 1.3. Likely secondary to prerenal azotemia. However family has shown up and they state that she has actually not gotten any better over the last 6 weeks and has had persistent nausea and vomiting despite the patient telling this is only been going on for 24 hours. I reviewed her records further and it seems as if she has been intermittently dealing with acute on chronic kidney disease and has had a recent CT scan on the third of this month that showed perinephric stranding she is chronically colonized it seems on numerous urinalyses in the past and was treated for urinary tract infection she states she never had any symptoms and that she still does not have any urinary burning frequency urgency etc. She has no evidence of any type of surgical pathology in the abdomen. She will need to be admitted for further evaluation of her renal insufficiency to make sure she is trending in the right direction that she can tolerate fluids I will discuss the case with Dr. Stout who is on-call for Dr. Justice and she will be admitted for further evaluation and management. Critical Care Critical Care Time Critical Care Time: No
[2023-09-14 15:46] LABS: Basophils # 0.1 K/mm3 (0-0.2); Basophils % 1.1 % (0.1-2.0); Eosinophils # 0.1 K/mm3 (0.0-0.4); Eosinophils % 1.1 % (0.1-12.0); Hematocrit 37.7 % (37.0-47.0); Hemoglobin 12.1 g/dL (12.2-16.2); Lymphocytes # 2.3 K/mm3 (0.7-4.5); Lymphocytes % 25.9 % (10-50); Mean Corpuscular HGB Conc 32.1 g/dL (31.8-35.4); Mean Corpuscular Hemoglobin 28.1 pg (27.0-31.2); Mean Corpuscular Volume 87.7 fl (81-99); Mean Platelet Volume 7.5 fl (7.4-10.4); Monocytes # 0.3 K/mm3 (0.1-1.0); Monocytes % 3.6 % (1.7-9.3); Neutrophils % 68.3 % (37.0-80.0); Platelet Count 409 K/mm3 (142-424); Red Blood Count 4.29 M/mm3 (4.20-5.40); Red Cell Distribution Width 19.5 % (11.5-17.5); White Blood Count 8.8 K/mm3 (4.8-10.8)
[2023-09-14] MEDS: LACTATED RINGERS 1000ML 1,000 ML 999 ML IV (15:47)
[2023-09-14] MEDS: ONDANSETRON 4MG/2ML VIAL 4 MG IV (15:47)
[2023-09-14 16:00] VITALS: BP 139/71; PULSE 80; RESP 13; O2SAT 99
[2023-09-14 16:01] LABS: Alanine Aminotransferase 12 U/L (12-78); Albumin Level 4.1 g/dl (3.5-5.0); Albumin/Globulin Ratio 1.1 (1.1-1.8); Alkaline Phosphatase 76 U/L (38-126); Anion Gap 19.2 mEq/L (5-15); Aspartate Amino Transferase 27 U/L (14-36); Bilirubin,Total 0.7 mg/dl (0.2-1.3); Blood Urea Nitrogen 55 mg/dl (7-17); Calcium 9.7 mg/dl (8.4-10.2); Carbon Dioxide 29 mmol/L (22.0-30.0); Chloride 94 mmol/L (98-107); Creatinine Clearance Estimated 14 mL/min (50-200); Estimated Glomerular Filt Rate 20 ml/min (>60); GFR (African American) 25 ML/MIN (>60); Globulin 3.7 g/dL (1.3-3.2); Glucose 68 mg/dl (74-100); Magnesium 2.3 mg/dl (1.6-2.3); Phosphorous 4.7 mg/dl (2.5-4.5); Potassium 4.2 mmoL/L (3.5-5.1); Sodium 138 mmol/L (136-145); Total Protein,Serum 7.8 g/dl (6.3-8.2)
[2023-09-14 16:13] LABS: Troponin I 0.03 ng/ml (0.00-0.034)
--- NOTE | 2023-09-14 16:41 | PC.NURSE ---
dr oneil pageelias for admission
--- NOTE | 2023-09-14 16:59 | PC.NURSE ---
Dr. Mcclure speaking with Dr. Gay at this time
--- NOTE | 2023-09-14 16:59 | PC.NURSE ---
DR JONES SPEAKING WITH DR RODRIGUES FOR ADMISSION
--- NOTE | 2023-09-14 17:01 | PC.NURSE ---
FRUIT GRADER OPERATOR NOTIFIED OF ADMISSION
--- NOTE | 2023-09-14 17:16 | PC.NURSE ---
REPORT CALLED TO BRITTNI DUMONT
[2023-09-14 17:20] VITALS: BP 140/70; PULSE 71; RESP 18; TEMP 36.6; O2SAT 98
--- NOTE | 2023-09-14 17:38 | PC.NURSE ---
arrived to floor by stretcher from ED
[2023-09-14 18:00] VITALS: BP 146/69; PULSE 70; RESP 16; TEMP 36.6; O2SAT 99; BMI 18.8
[2023-09-14 19:54] LABS: Troponin I 0.02 ng/ml (0.00-0.034)
[2023-09-14 20:00] VITALS: BP 107/58; PULSE 73; RESP 18; TEMP 37.2
[2023-09-14] MEDS: ROPINIROLE 1MG TABLET 0.5 MG PO (21:03)
[2023-09-14] MEDS: PHA TO NURSING INSTRUCTION 1 EACH NOTAPPLIC (21:03)
[2023-09-14] MEDS: LACTATED RINGERS 1000ML 1,000 ML 100 ML IV (21:03)
[2023-09-14] MEDS: clonazePAM 0.5MG TABLET 0.5 MG PO (21:06)
[2023-09-14 22:26] LABS: Troponin I 0.02 ng/ml (0.00-0.034)
[2023-09-15 04:00] VITALS: BP 106/70; PULSE 70; RESP 16; TEMP 36.5; O2SAT 96; BMI 19.2
--- NOTE | 2023-09-15 07:46 | HMH.PHAINT1 ---
Pharmacy Intervention Comments: MEDICATION RECONCILIATION COMPLETED ON PATIENT USING EXTERNAL FILL HISTORY FROM PHARMACY. -KRISTEN HORNE, BENNYD
--- NOTE | 2023-09-15 07:56 | P.HP_ITS ---
History of Present Illness *Admission Date: 09/14/23 *Reason for visit:: Weakness; nausea and vomiting *History of present illness: Ms. Najera is an 83-year-old female with a history of hypertension, hyperlipidemia, ASCVD, NSTEMI, ischemic cardiomyopathy and 3 recent hospitalizations at [facility] for acute kidney injury with UTI, constipation. She presented to [facility] emergency room for evaluation via ambulance after being unable to eat and drink much for the last 4 days. She states she has been sick for about a week with gradual increase in the nausea and the vomiting. Has been worse the last 24 to 48 hours. Bowels last moved yesterday. She describes a normal stool. She denies any hematemesis melena and hematuria. She denies fever. She has been voiding without difficulty and denies dysuria. She states she has no abdominal pain or upper r espiratory symptoms. She just feels like she is dehydrated With evaluation in the emergency room white blood cell count was normal at 8800 with a hemoglobin of 12.1 and hematocrit of 37.7. BUN was noted to be 55 with a creatinine of 2.3 which is elevated when compared to her norm. She was given fluid bolus and Zofran. She states this did help and made her feel better without any further nausea. With family interview in the ER they felt that she has not gotten any better over the last 6 weeks with persistent nausea and vomiting despite the patient stating she had only been sick for 24 hours. She was then admitted for ongoing IV fluids and further evaluation. With hospitalizations with the last 3 admission urine cultures have shown staph aureus and yeast. UA with culture for this admission is pending thus far. Currently patient is sitting up in the bed eating a clear liquid diet. She states her nausea is gone and she is trying to eat. She states she has voided since admission. She denies any abdominal pain. To note patient lives alone with her and plans to move to [place] to live with her daughter as soon as she is better. She and her have a live-in caregiver. [facility] Disclaimer: The information contained in this section may have been updated after the patient was seen, as this information can be updated by other users. Medical History (Updated 09/15/23 @ 08:40 by Hollis Linda MD) Pyelonephritis GI bleed Chronic constipation CKD (chronic kidney disease) stage 3, GFR 30-59 ml/min Coronary artery disease Ischemic cardiomyopathy ASCVD (arteriosclerotic cardiovascular disease) Systolic heart failure Cardiomyopathy CHF (congestive heart failure) HLD (hyperlipidemia) Hypertension Left bundle branch block (LBBB) determined by electrocardiography NSTEMI (non-ST elevated myocardial infarction) Surgical History History of cardiac cath S/P partial hysterectomy Family History No significant family history Social History Smoking Status: Never smoker alcohol intake: never current occupational status: retired Travel in the last 8 weeks: None Review of Systems Constitutional Constitutional: Reports difficulty sleeping, Denies fever(s), Denies frequent falls, Denies headache(s), Reports poor appetite, Reports lethargy, Reports weakness and Reports weight loss Eyes Eyes: Denies change in vision ENT Ears, Nose, Mouth, and Throat: Denies dizziness, Denies otalgia, Denies headac he(s), Denies post nasal drip, Denies sore throat and Denies vertigo *Cardiovascular Cardiovascular: Denies chest pain, Denies dyspnea, Denies leg edema and Denies palpitations *Respiratory Respiratory: Denies chest congestion, Denies cough and Denies dyspnea *Gastrointestinal Gastrointestinal: Denies abdominal pain, Denies belching, Denies bloating, Denies change in stool character, Denies constipation, Denies heartburn, Denies hematemesis, Denies hematochezia, Denies loose stools, Denies melena, Reports nausea and Reports vomiting *Genitourinary Genitourinary: Denies difficulty voiding and Denies dysuria *Musculoskeletal Musculoskeletal: Reports abnormal gait (Walks with the aid of a walker) and Denies arthralgias *Neurologic Neurologic: Reports abnormal gait (Walks with the aid of a walker), Denies confusion, Denies dizziness, Denies frequent falls, Denies headache(s), Denies vertigo and Reports weakness Psychiatric Psychiatric: Denies confusion Endocrine Endocrine: Denies palpitations Meds Home Medications and Allergies Home Medications Medication Instructions Recorded Confirmed Type aspirin 81 mg chewable tablet 81 mg PO DAILY 03/11/23 09/14/23 History atorvastatin 40 mg tablet 40 mg PO HS 03/11/23 09/14/23 History carvedilol 3.125 mg tablet 3.125 mg PO BID 03/11/23 09/14/23 History clopidogrel 75 mg tablet 75 mg PO DAILY 03/11/23 09/14/23 History ropinirole 0.5 mg tablet 0.5 mg PO HS 03/11/23 09/14/23 History spironolactone 25 mg tablet 25 mg PO DAILY 03/11/23 09/14/23 History furosemide 40 mg tablet 40 mg PO DAILY 04/21/23 09/14/23 History trazodone 50 mg tablet 25 - 50 mg PO HSP PRN Insomnia 04/21/23 09/14/23 History clonazepam 0.5 mg tablet 0.5 mg PO HSP PRN Insomnia 07/19/23 09/14/23 History ondansetron 4 mg disintegrating 4 mg PO Q8H 09/15/23 09/15/23 History tablet sacubitril 49 mg-valsartan 51 mg 1 tab PO BID 09/15/23 09/15/23 History tablet (Entresto) New Prescriptions to Start Prescriptions: Allergies Allergy/AdvReac Type Severity Reaction Status Date / Time promethazine Allergy Intermediate severe Verified 05/19/23 13:37 vomiting Penicillins Allergy Verified 05/19/23 13:36 Sulfa (Sulfonamide Allergy Verified 05/19/23 13:36 Antibiotics) triprolidine Allergy Verified 05/19/23 13:36 Exam Data for Last 24 hours Vital signs and Labs for Last 24 Hours: Temp Pulse Resp BP Pulse Ox O2 Del Method 97.7 F 70 16 106/70 L 96 Room Air 09/15/23 04:00 09/15/23 04:00 09/15/23 04:00 09/15/23 04:00 09/15/23 04:00 09/15/23 07:52 Laboratory Results - last 24 hr 09/14/23 15:39: WBC 8.8, RBC 4.29, Hgb 12.1 L, Hct 37.7, MCV 87.7, MCH 28.1, MCHC 32.1, RDW 19.5 H, Plt Count 409, MPV 7.5, Neut % (Auto) 68.3, Lymph % (Auto) 25.9, [place] % (Auto) 3.6, Eos % (Auto) 1.1, Baso % (Auto) 1.1, Neut # (Auto) 6.0, Lymph # (Auto) 2.3, [place] # (Auto) 0.3, Eos # (Auto) 0.1, Baso # (Auto) 0.1, Sodium 138, Potassium 4.2, Chloride 94 L, Carbon Dioxide 29, Anion Gap 19.2 H, BUN 55 H, Creatinine 2.30 H, Estimated Creat Clear 14, Estimated GFR 20 L, Est GFR ( Amer) 25 L, Glucose 68 L, Calcium 9.7, Phosphorus 4.7 H, Magnesium 2.3, Total Bilirubin 0.7, AST 27, ALT 12, Alkaline Phosphatase 76, Troponin I 0.03, Total Protein 7.8, Albumin 4.1, Globulin 3.7 H, Albumin/Globulin Ratio 1.1 09/14/23 19:26: Troponin I 0.02 09/14/23 21:53: Troponin I 0.02 I & O for Last 24 hours: Intake & Output 09/12/23 09/13/23 09/14/23 09/15/23 11:59 11:59 11:59 11:59 Intake Total 811 / 811 Output Total 0 / 0 Balance 811 / 811 Weight 115 lb 9 oz Constitutional Constitutional: no acute distress, thin and cooperative *Routine HEENT Exam Head: Present normocephalic and atraumatic Eye: Present PERRL; Absent conjunctival icterus, scleral injection or conjunctivae pink ENT: Present mucous membranes moist and oropharynx clear; Absent dentition normal *Routine Neck Exam Neck: Present supple; Absent carotid bruit, lymphadenopathy or thyromegaly *Routine Respiratory Exam Respiratory: Present CTA bilaterally (Anteriorly and posteriorly) *Routine Cardiovascular Exam Cardiovascular: Present RRR, murmur and ectopic (Infrequent) *Routine Abdominal Exam Abdominal: Present soft and normoactive bowel sounds; Absent tenderness, distended, rebound or guarding *Routine Rectal Exam Rectal:: deferred *Routine Genitalia Exam Genitalia:: deferred *Routine Extremities Exam Extremities: Present pulses intact; Absent edema or calf tenderness *Routine Neurological Exam Neurological: Present alert, oriented X3, moving all extremities and normal speech Assessment and Plan *Assessment and plan (1) Nausea and vomiting: Status: Acute Category: Medical Code(s): R11.2 - Nausea with vomiting, unspecified (2) YAMEL (acute kidney injury): Status: Acute Category: Medical Code(s): N17.9 - Acute kidney failure, unspecified (3) Moderate dehydration: Status: Acute Category: Medical Code(s): E86.0 - Dehydration (4) CKD (chronic kidney disease) stage 3, GFR 30-59 ml/min: Status: Acute Category: Medical Code(s): N18.30 - Chronic kidney disease, stage 3 unspecified (5) Generalized weakness: Status: Acute Category: Medical Code(s): R53.1 - Weakness (6) Constipation: Status: Acute Category: Medical Code(s): K59.00 - Constipation, unspecified (7) Ischemic cardiomyopathy: Status: Acute Category: Medical Code(s): I25.5 - Ischemic cardiomyopathy (8) Weight loss, abnormal: Status: Acute Category: Medical Code(s): R63.4 - Abnormal weight loss (9) Chronic HFrEF (heart failure with reduced ejection fraction): Status: Acute Category: Medical Code(s): I50.22 - Chronic systolic (congestive) heart failure (10) Chronic pyelonephritis: Status: Acute Category: Medical Code(s): N11.9 - Chronic tubulo-interstitial nephritis, unspecified Plan A.m. labs are pending. Will obtain a urinalysis with culture. Continue IV fluids, lactated Ringer's at 100/hr. Advance diet as tolerated. Encourage out of bed activity. Dr. Linda entry - Saw patient, agree with above note.
[2023-09-15 08:00] VITALS: BP 109/52; PULSE 72; RESP 18; TEMP 36.7; O2SAT 98
[2023-09-15] MEDS: LACTATED RINGERS 1000ML 1,000 ML 100 ML IV (09:53)
[2023-09-15 09:59] LABS: Alanine Aminotransferase 8 U/L (12-78); Albumin Level 2.9 g/dl (3.5-5.0); Alkaline Phosphatase 79 U/L (38-126); Anion Gap 13.4 mEq/L (5-15); Aspartate Amino Transferase 36 U/L (14-36); Bilirubin,Total 0.9 mg/dl (0.2-1.3); Blood Urea Nitrogen 48 mg/dl (7-17); Calcium 8.7 mg/dl (8.4-10.2); Carbon Dioxide 27 mmol/L (22.0-30.0); Chloride 100 mmol/L (98-107); Creatinine Clearance Estimated 21 mL/min (50-200); Estimated Glomerular Filt Rate 29 ml/min (>60); GFR (African American) 35 ML/MIN (>60); Globulin 2.8 g/dL (1.3-3.2); Glucose 75 mg/dl (74-100); Potassium 4.4 mmoL/L (3.5-5.1); Sodium 136 mmol/L (136-145); Total Protein,Serum 5.7 g/dl (6.3-8.2)
--- NOTE | 2023-09-15 12:48 | PC.NURSE ---
Pt's daughter, Ewa Espinosa called and stated she is concerned about pt's weight loss over time and would like to speak with physician about this. MD Linda's office was notified.
[2023-09-15 13:34] LABS: NT Pro Brain Natriuretic Pep. 1020 pg/mL (0-450)
[2023-09-15 16:00] VITALS: BP 116/66; PULSE 80; RESP 16; TEMP 36.8; O2SAT 96
--- NOTE | 2023-09-15 17:45 | PC.NURSE ---
Pt has denied any discomfort this shift. No N/V. Has ambulated to BR with assist x1. Has sat up in the chair. Has had a LG loose stool this shift. UA was not obtained this shift due to contamination. Family has visited with pt today. Call light within reach.
[2023-09-15 19:52] VITALS: BP 129/63; PULSE 71; RESP 17; TEMP 36.5; O2SAT 98
--- NOTE | 2023-09-15 20:35 | PC.NURSE ---
14 Fr straight catheter was inserted for a urine sample for culture. patient was educated on risks of infections due to procedure, patient verbalized understanding. urine was collected and sent to lab. patient tolerated procedure well.
[2023-09-15] MEDS: ROPINIROLE 1MG TABLET 0.5 MG PO (20:39)
[2023-09-15] MEDS: clonazePAM 0.5MG TABLET 0.5 MG PO (20:39)
[2023-09-16] MEDS: LACTATED RINGERS 1000ML 1,000 ML 50 ML IV
[2023-09-16 04:00] VITALS: BP 113/55; PULSE 72; RESP 16; TEMP 36.4; O2SAT 94; BMI 18.4
[2023-09-16 08:00] VITALS: BP 136/63; PULSE 71; RESP 18; TEMP 36.5; O2SAT 96
--- NOTE | 2023-09-16 08:30 | EXP.ACUTE.PN ---
Subjective *Date: 09/16/23 *Time: 09:00 Interval history: Patient states she is feeling much better today. She was up for most of the afternoon in a chair yesterday and has been able to go back and forth to the bathroom with her walker. Her strength has improved and she has been able to eat without getting nauseated. She wants to go home. Medical Exam Vital signs and Labs for Last 24 Hours: Vital Signs Temp Pulse Resp BP Pulse Ox O2 Del Method O2 Flow Rate 09/16/23 07:00 Room Air 09/16/23 05:00 Room Air 09/16/23 03:00 Room Air 09/16/23 01:00 Room Air 09/15/23 23:00 Room Air 09/15/23 21:00 Room Air 09/15/23 20:00 Room Air 09/15/23 19:52 97.7 F 71 17 129/63 98 Room Air 09/15/23 18:49 Room Air 09/15/23 17:00 Room Air 09/15/23 16:00 98.3 F 80 16 116/66 96 Room Air 09/15/23 15:00 Room Air 09/15/23 13:00 Room Air 09/15/23 11:00 Room Air 09/15/23 09:00 Nasal Cannula 2 Intake and Output 09/15/23 09/16/23 09/16/23 19:59 03:59 11:59 Intake Total 660 / 660 Output Total 350 / 350 0 / 350 Balance 310 / 310 0 / 310 Intake: Intake, Oral Amount 660 / 660 Output: Output, Urine Amount 350 / 350 0 / 350 Other: Number of Unmeasured Voids 1 1 Number of Bowel Movements 1 1 Laboratory Results - last 24 hr 09/15/23 05:40: Sodium 136, Potassium 4.4, Chloride 100, Carbon Dioxide 27, Anion Gap 13.4, BUN 48 H, Creatinine 1.70 H D, Estimated Creat Clear 21, Estimated GFR 29 L, Est GFR ( Amer) 35 L D, Glucose 75, Calcium 8.7, Total Bilirubin 0.9, AST 36 D, ALT 8 L D, Alkaline Phosphatase 79, NT-Pro-B Natriuret Pep 1020 H, Total Protein 5.7 L D, Albumin 2.9 L D, Globulin 2.8, Albumin/Globulin Ratio 1.0 L I & O for Labs for Last 24 Hours: Intake & Output 09/13/23 09/14/23 09/15/23 09/16/23 11:59 11:59 11:59 11:59 Intake Total 1051 / 1051 660 / 660 Output Total 0 / 0 350 / 350 Balance 1051 / 1051 310 / 310 Weight 115 lb 9 oz Constitutional: Present no acute distress Respiratory: Present CTA bilaterally Cardiac: Present Reg Rate and Rhythm GI: Present soft; Absent distention or tenderness Extremities: Absent edema Skin: Present intact Neuro: Present alert, awake and oriented x 3 Assessment and Plan *Assessment and plan (1) Nausea and vomiting: Status: Acute Category: Medical Code(s): R11.2 - Nausea with vomiting, unspecified (2) YAMEL (acute kidney injury): Status: Acute Category: Medical Code(s): N17.9 - Acute kidney failure, unspecified (3) Moderate dehydration: Status: Acute Category: Medical Code(s): E86.0 - Dehydration (4) CKD (chronic kidney disease) stage 3, GFR 30-59 ml/min: Status: Acute Category: Medical Code(s): N18.30 - Chronic kidney disease, stage 3 unspecified (5) Generalized weakness: Status: Acute Category: Medical Code(s): R53.1 - Weakness (6) Constipation: Status: Acute Category: Medical Code(s): K59.00 - Constipation, unspecified (7) Ischemic cardiomyopathy: Status: Acute Category: Medical Code(s): I25.5 - Ischemic cardiomyopathy (8) Weight loss, abnormal: Status: Acute Category: Medical Code(s): R63.4 - Abnormal weight loss (9) Chronic HFrEF (heart failure with reduced ejection fraction): Status: Acute Category: Medical Code(s): I50.22 - Chronic systolic (congestive) heart failure (10) Chronic pyelonephritis: Status: Acute Category: Medical Code(s): N11.9 - Chronic tubulo-interstitial nephritis, unspecified Plan Labs from yesterday did show renal function improvement. Still awaiting urine culture. Dr. Linda entry - Saw patient, agree with above note. Vomiting has resolved. Patient is eating a full liquid diet now. UA and culture are pending.
[2023-09-16 08:56] LABS: Microscopic, Urine URINE MICROSCOPIC (MICROSCOPIC)
[2023-09-16 09:16] LABS: Blood, Urine TRACE-I (Negative); Color,Urine YELLOW (Yellow); Glucose,Urine (UA) Negative (Negative); Ketones,Urine TRACE (Negative); Leukocyte Esterase,Urine 3+ (Negative); Nitrate,Urine Negative (Negative); Protein,Urine TRACE (Negative); Urobilinogen,Urine 0.2 EU/dl (0.2)
[2023-09-16 09:19] LABS: Appearance,Urine Cloudy (Clear)
[2023-09-16 09:36] LABS: Bilirubin,Urine 1+ (Negative)
[2023-09-16 09:47] LABS: Bacteria,Urine 4+ /lpf; WBC,Urine TNTC #/hpf (0-3)
[2023-09-16] MEDS: CEFTRIAXONE 1 GM 1 GM in 0.9 % SODIUM CHLORIDE 50 ML IV (14:42)
[2023-09-16 15:55] VITALS: BP 114/62; PULSE 69; RESP 18; TEMP 37; O2SAT 95
--- NOTE | 2023-09-16 16:04 | PC.NURSE ---
Patient states feeling better today. Patient had urine come back with 3+ leuks, MD notified and rocephin started. Patient a&ox4 and VSS. Fluids d/c on patient. Patient gets up with one assist and walker and gets around room well.
[2023-09-16] MEDS: ACETAMINOPHEN 325MG TAB 650 MG PO (16:31)
[2023-09-16 19:54] VITALS: BP 123/59; PULSE 75; RESP 16; TEMP 36.4; O2SAT 96
[2023-09-16] MEDS: ROPINIROLE 1MG TABLET 0.5 MG PO (20:14)
[2023-09-16] MEDS: TRAZODONE 50MG TABLET 50 MG PO (23:03)
[2023-09-17] MEDS: clonazePAM 0.5MG TABLET 0.5 MG PO (03:07)
[2023-09-17 04:00] VITALS: BMI 18.8
--- NOTE | 2023-09-17 04:37 | PC.NURSE ---
A&Ox4. Ambulated in the hallway at beginning of shift with walker x1 assist. Pt complained of not being able to sleep, treated per mar. Pt stated her legs were restless and drawing in pain, stated she took medication at home for this, but could not remember. Called sitter, states the Klonipin is taken for restless legs, patient requested this med, given per apr, pt has been able to sleep since administering medication. Bed alarm on. Call light in reach.
[2023-09-17 05:34] VITALS: BP 121/65; PULSE 85; RESP 16; TEMP 37; O2SAT 93
[2023-09-17 06:33] LABS: Basophils # 0.1 K/mm3 (0-0.2); Eosinophils # 0.2 K/mm3 (0.0-0.4); Eosinophils % 3.2 % (0.1-12.0); Hematocrit 25.6 % (37.0-47.0); Hemoglobin 9.6 g/dL (12.2-16.2); Mean Corpuscular HGB Conc 37.6 g/dL (31.8-35.4); Mean Corpuscular Hemoglobin 32.5 pg (27.0-31.2); Mean Corpuscular Volume 86.4 fl (81-99); Mean Platelet Volume 7.3 fl (7.4-10.4); Monocytes # 0.4 K/mm3 (0.1-1.0); Monocytes % 5.4 % (1.7-9.3); Neutrophils % 60.5 % (37.0-80.0); Platelet Count 240 K/mm3 (142-424); Red Blood Count 2.96 M/mm3 (4.20-5.40); Red Cell Distribution Width 19.6 % (11.5-17.5); White Blood Count 6.7 K/mm3 (4.8-10.8)
[2023-09-17 06:51] LABS: Anion Gap 8.2 mEq/L (5-15); Blood Urea Nitrogen 19 mg/dl (7-17); Calcium 8.6 mg/dl (8.4-10.2); Carbon Dioxide 28 mmol/L (22.0-30.0); Chloride 107 mmol/L (98-107); Creatinine Clearance Estimated 35 mL/min (50-200); Estimated Glomerular Filt Rate 69 ml/min (>60); GFR (African American) 83 ML/MIN (>60); Glucose 85 mg/dl (74-100); Potassium 3.2 mmoL/L (3.5-5.1); Sodium 140 mmol/L (136-145)
[2023-09-17 07:40] VITALS: BP 135/64; PULSE 73; RESP 18; TEMP 36.8; O2SAT 96
--- NOTE | 2023-09-17 08:15 | P.PN_ITS ---
Subjective *Date: 09/17/23 *Time: 08:32 Interval history: Patient is feeling well. She has been up walking with her walker. She is eating and denies any vomiting or nausea. She was unable to sleep due to restless legs and would really like to go home today. Medical Exam Vital signs and Labs for Last 24 Hours: Vital Signs Temp Pulse Resp BP Pulse Ox O2 Del Method 09/17/23 07:40 98.3 F 73 18 135/64 96 Room Air 09/17/23 06:58 Room Air 09/17/23 05:34 98.6 F 85 16 121/65 93 L Room Air 09/17/23 05:00 Room Air 09/17/23 03:00 Room Air 09/17/23 00:59 Room Air 09/16/23 22:49 Room Air 09/16/23 21:00 Room Air 09/16/23 20:00 Room Air 09/16/23 19:54 97.5 F L 75 16 123/59 L 96 Room Air 09/16/23 15:55 98.6 F 69 18 114/62 95 Room Air Intake and Output 09/16/23 09/17/23 09/17/23 19:59 03:59 11:59 Intake Total 1300 / 1600 300 / 1600 Output Total 0 / 0 0 / 0 0 / 0 Balance 1300 / 1600 300 / 1600 0 / 1600 Intake: Intake, Oral Amount 1300 / 1600 300 / 1600 Output: Output, Urine Amount 0 / 0 0 / 0 0 / 0 Other: Number of Unmeasured Voids 1 1 1 Number of Bowel Movements 1 Weight 113 lb 6.4 oz Patient Weight 09/17/23 11:59 Weight 113 lb 6.4 oz Laboratory Results - last 24 hr 09/15/23 20:38: Urine Color Yellow, Urine Appearance Cloudy, Urine pH 6.0, Ur Specific [place] 1.010, Urine Protein Trace, Urine Glucose (UA) Negative, Urine Ketones Trace, Urine Blood Trace-i, Urine Nitrate Negative, Urine Bilirubin 1+ A , Urine Urobilinogen 0.2, Ur Leukocyte Esterase 3+ A, Urine RBC 5-10, Urine WBC Tntc, Ur Squamous Epith Cells 3-5, Urine Bacteria 4+ 09/17/23 05:51: WBC 6.7, RBC 2.96 L D, Hgb 9.6 L, Hct 25.6 L, MCV 86.4, MCH 32.5 H, MCHC 37.6 H, RDW 19.6 H, Plt Count 240 D, MPV 7.3 L, Neut % (Auto) 60.5, Lymph % (Auto) 30.0, [place] % (Auto) 5.4, Eos % (Auto) 3.2, Baso % (Auto) 1.0, Neut # (Auto) 4.0, Lymph # (Auto) 2.0, [place] # (Auto) 0.4, Eos # (Auto) 0.2, Baso # (Auto) 0.1, Sodium 140, Potassium 3.2 L D, Chloride 107, Carbon Dioxide 28, Anion Gap 8.2, BUN 19 H D, Creatinine 0.80 D, Estimated Creat Clear 35, Estimated GFR 69, Est GFR ( Amer) 83 D, Glucose 85, Calcium 8.6 I & O for Labs for Last 24 Hours: Intake & Output 09/14/23 09/15/23 09/16/23 09/17/23 11:59 11:59 11:59 11:59 Intake Total 1051 / 1051 1080 / 1080 1600 / 1600 Output Total 0 / 0 350 / 350 0 / 0 Balance 1051 / 1051 730 / 730 1600 / 1600 Weight 115 lb 9 oz 110 lb 9 oz 113 lb 6.4 oz Microbiology Reports for the Last 24 Hours: Microbiology 09/15/23 20:38 Urine,Clean Catch Urine Culture - Preliminary Constitutional: Present no acute distress Respiratory: Present CTA bilaterally Cardiac: Present Reg Rate and Rhythm GI: Present soft; Absent distention or tenderness Extremities: Absent edema Skin: Present intact Neuro: Present alert, awake and oriented x 3 Assessment and Plan *Assessment and plan (1) Nausea and vomiting: Status: Acute Category: Medical Code(s): R11.2 - Nausea with vomiting, unspecified (2) YAMEL (acute kidney injury): Status: Acute Category: Medical Code(s): N17.9 - Acute kidney failure, unspecified (3) Moderate dehydration: Status: Acute Category: Medical Code(s): E86.0 - Dehydration (4) CKD (chronic kidney disease) stage 3, GFR 30-59 ml/min: Status: Acute Category: Medical Code(s): N18.30 - Chronic kidney disease, stage 3 unspecified (5) Generalized weakness: Status: Acute Category: Medical Code(s): R53.1 - Weakness (6) Constipation: Status: Acute Category: Medical Code(s): K59.00 - Constipation, unspecified (7) Ischemic cardiomyopathy: Status: Acute Category: Medical Code(s): I25.5 - Ischemic cardiomyopathy (8) Weight loss, abnormal: Status: Acute Category: Medical Code(s): R63.4 - Abnormal weight loss (9) Chronic HFrEF (heart failure with reduced ejection fraction): Status: Acute Category: Medical Code(s): I50.22 - Chronic systolic (congestive) heart failure (10) Chronic pyelonephritis: Status: Acute Category: Medical Code(s): N11.9 - Chronic tubulo-interstitial nephritis, unspecified (11) Hypokalemia: Status: Resolved Category: Medical Code(s): E87.6 - Hypokalemia Plan Renal function is normal today. Potassium is low. Will give a dose of potassium today. Can likely discharge today on antibiotics. Will discuss with Dr. Linda. Dr. Linda entry - Saw patient, agree with above note. OK for discharge home today with home health nursing care. She is not interested in a Hospice referral, will not resume Lasix at time of discharge., f/u with Dr. Justice next week.
[2023-09-17] MEDS: POTASSIUM CHLORIDE 20MEQ TAB 20 MEQ PO (09:03)
--- NOTE | 2023-09-17 09:32 | CARE MANAGER ---
Patient is current with [facility]. Sent updates and new order to include PT, OT, and SN.
--- NOTE | 2023-09-18 17:07 | P.DS_ITS ---
General Admission date:: 09/14/23 Discharge date: 09/17/23 HPI HPI HPI: Ms. Najera is an 83-year-old female with a history of hypertension, hyperlipidemia, ASCVD, NSTEMI, ischemic cardiomyopathy and 3 recent h ospitalizations at [facility] for acute kidney injury with UTI, constipation. She presented to [facility] emergency room for evaluation via ambulance after being unable to eat and drink much for the last 4 days. She states she has been sick for about a week with gradual increase in the nausea and the vomiting. Has been worse the last 24 to 48 hours. Bowels last moved yesterday. She describes a normal stool. She denies any hematemesis melena and hematuria. She denies fever. She has been voiding without difficulty and denies dysuria. She states she has no abdominal pain or upper respiratory symptoms. She just feels like she is dehydrated With evaluation in the emergency room white blood cell count was normal at 8800 with a hemoglobin of 12.1 and hematocrit of 37.7. BUN was noted to be 55 with a creatinine of 2.3 which is elevated when compared to her norm. She was given fluid bolus and Zofran. She states this did help and made her feel better without any further nausea. With family interview in the ER they felt that she has not gotten any better over the last 6 weeks with persistent nausea and vomiting despite the patient stating she had only been sick for 24 hours. She was then admitted for ongoing IV fluids and further evaluation. With hospitalizations with the last 3 admission urine cultures have shown staph aureus and yeast. UA with culture for this admission is pending thus far. Currently patient is sitting up in the bed eating a clear liquid diet. She states her nausea is gone and she is trying to eat. She states she has voided since admission. She denies any abdominal pain. To note patient lives alone with her and plans to move to [place] to live with her daughter as soon as she is better. She and her have a live-in caregiver. Hospital Course Hospital Course Hospital Course: The patient was admitted and urinalysis was obtained. She was started on IV fluids. Her nausea and vomiting improved and she was able to tolerate a diet. She was able to get up in a chair and walk with her walker. Her renal function improved. By 09/17/2023 she was feeling much better and wanted to go home. Her renal function had normalized and her potassium was low. She was given a dose of potassium and was stable to be discharged home with home health as well as cefuroxime for UTI. Lasix will not be resumed. Of note, her urine culture showed mixed organisms suggesting medication. Exam Data for Last 24 hours Vital signs and Labs for Last 24 Hours: Temp Pulse Resp BP Pulse Ox O2 Del Method O2 Flow Rate 98.3 F 73 18 135/64 96 Room Air 2 09/17/23 07:40 09/17/23 07:40 09/17/23 07:40 09/17/23 07:40 09/17/23 07:40 09/17/23 08:52 09/15/23 09:00 I & O for Last 24 hours: Intake & Output 09/16/23 09/17/23 09/18/23 09/19/23 11:59 11:59 11:59 11:59 Intake Total 1080 / 1080 2215 / 2215 Output Total 350 / 350 0 / 0 Balance 730 / 730 2215 / 2215 Weight 110 lb 9 oz 113 lb 6.4 oz Microbiology Reports for the Last 24 Hours: Microbiology 09/15/23 20:38 Urine,Clean Catch Urine Culture - Final Multiple organisms, suggests contamination. Narrative: Constitutional Constitutional: no acute distress, thin and cooperative *Routine HEENT Exam Head: Present normocephalic and atraumatic Eye: Present PERRL; Absent conjunctival icterus, scleral injection or conjunctivae pink ENT: Present mucous membranes moist and oropharynx clear; Absent dentition normal *Routine Neck Exam Neck: Present supple; Absent carotid bruit, lymphadenopathy or thyromegaly *Routine Respiratory Exam Respiratory: Present CTA bilaterally (Anteriorly and posteriorly) *Routine Cardiovascular Exam Cardiovascular: Present RRR, murmur and ectopic (Infrequent) *Routine Abdominal Exam Abdominal: Present soft and normoactive bowel sounds; Absent tenderness, distended, rebound or guarding *Routine Rectal Exam Rectal:: deferred *Routine Genitalia Exam Genitalia:: deferred *Routine Extremities Exam Extremities: Present pulses intact; Absent edema or calf tenderness *Routine Neurological Exam Neurological: Present alert, oriented X3, moving all extremities and normal speech DS: Diagnosis Discharge Diagnosis (1) Nausea and vomiting: Status: Acute Code(s): R11.2 - Nausea with vomiting, unspecified (2) YAMEL (acute kidney injury): Status: Acute Code(s): N17.9 - Acute kidney failure, unspecified (3) Moderate dehydration: Status: Acute Code(s): E86.0 - Dehydration (4) CKD (chronic kidney disease) stage 3, GFR 30-59 ml/min: Status: Acute Code(s): N18.30 - Chronic kidney disease, stage 3 unspecified (5) Generalized weakness: Status: Acute Code(s): R53.1 - Weakness (6) Constipation: Status: Acute Code(s): K59.00 - Constipation, unspecified (7) Ischemic cardiomyopathy: Status: Acute Code(s): I25.5 - Ischemic cardiomyopathy (8) Weight loss, abnormal: Status: Acute Code(s): R63.4 - Abnormal weight loss (9) Chronic HFrEF (heart failure with reduced ejection fraction): Status: Acute Code(s): I50.22 - Chronic systolic (congestive) heart failure (10) Chronic pyelonephritis: Status: Acute Code(s): N11.9 - Chronic tubulo-interstitial nephritis, unspecified (11) Hypokalemia: Status: Resolved Code(s): E87.6 - Hypokalemia (12) Urinary tract infectious disease: Status: Acute Code(s): N39.0 - Urinary tract infection, site not specified Qualifiers: Hematuria presence: with hematuria Urinary tract infection type: site unspecified Qualified Code(s): N39.0 - Urinary tract infection, site not specified; R31.9 - Hematuria, unspecified Meds Home Medications and Allergies Home Medications ?Medication ?Instructions ?Recorded ?Confirmed ?Type aspirin 81 mg chewable tablet 81 mg PO DAILY 03/11/23 09/14/23 History atorvastatin 40 mg tablet 40 mg PO HS 03/11/23 09/14/23 History carvedilol 3.125 mg tablet 3.125 mg PO BID 03/11/23 09/14/23 History clopidogrel 75 mg tablet 75 mg PO DAILY 03/11/23 09/14/23 History ropinirole 0.5 mg tablet 0.5 mg PO HS 03/11/23 09/14/23 History spironolactone 25 mg tablet 25 mg PO DAILY 03/11/23 09/14/23 History trazodone 50 mg tablet 25 - 50 mg PO HSP PRN Insomnia 04/21/23 09/14/23 History clonazepam 0.5 mg tablet 0.5 mg PO HSP PRN Insomnia 07/19/23 09/14/23 History ondansetron 4 mg disintegrating 4 mg PO Q8H 09/15/23 09/15/23 History tablet sacubitril 49 mg-valsartan 51 mg 1 tab PO BID 09/15/23 09/15/23 History tablet (Entresto) cefuroxime axetil 500 mg tablet 500 mg PO BID #14 tabs 09/17/23 Rx New Prescriptions to Start Prescriptions: cefuroxime axetil Hollis Linda Allergies Allergy/AdvReac Type Severity Reaction Status Date / Time promethazine Allergy Intermediate severe Verified 05/19/23 13:37 vomiting Penicillins Allergy Verified 05/19/23 13:36 Sulfa (Sulfonamide Allergy Verified 05/19/23 13:36 Antibiotics) triprolidine Allergy Verified 05/19/23 13:36 Discharge Plan Disposition Patient Disposition: Home Health Service Condition: Fair Discharge Order Discharge Orders: Discharge Order (Routine); Ordered 09/17/23 Ordered By: Hollis Linda Follow up Plan Follow up with: Rufus Justice MD [Primary Care Provider] - 09/22/23 3:30 pm Prescriptions/Medication Reconciliation: New cefuroxime axetil 500 mg tablet 500 mg PO BID Qty: 14 0RF Continued trazodone 50 mg tablet 25 - 50 mg PO HSP PRN (Reason: Insomnia) Patient Comments: TAKE 1/2 TO 1 TABLET BY MOUTH EVERY DAY AT BEDTIME NEEDED atorvastatin 40 mg tablet 40 mg PO HS clopidogrel 75 mg tablet 75 mg PO DAILY spironolactone 25 mg tablet 25 mg PO DAILY carvedilol 3.125 mg tablet 3.125 mg PO BID ropinirole 0.5 mg tablet 0.5 mg PO HS aspirin 81 mg tablet,chewable 81 mg PO DAILY ondansetron 4 mg tablet,disintegrating 4 mg PO Q8H Patient Comments: DISSOLVE 1 TABLET IN MOUTH EVERY 8 HOURS Entresto 49-51 mg Tablet 1 tab PO BID clonazepam 0.5 mg tablet 0.5 mg PO HSP PRN (Reason: Insomnia) Patient Comments: TAKE 1 TABLET BY MOUTH AT BEDTIME NEEDED Discontinued furosemide 40 mg tablet 40 mg PO DAILY Patient Comments: TAKE ONE TABLET BY MOUTH EVERY DAY Problem Reconciliation Problems Reviewed?: Yes Patient Discharge Instructions ACTIVITY: Continue current activity DIET: advance to your usual diet Patient Instructions: DI for Dehydration -- Adult, DI for Acute Kidney Injury Print Language: Albanian Providers Primary Care Provider: Rufus Justice Admit Provider: Dayo Gay Attending Provider: Hollis Linda
--- NOTE | 2023-09-21 12:03 | CARE MANAGER ---
Unable to reach patient via phone to discuss recent discharge. Call attempted X 2 and voicemail was left.
== END 2023-09-17 10:54 | disposition home health service (06) ==
LOC: ER 16:44 → 2ND 17:20
PROVIDERS: Admitting Provider Internal Medicine Adolescent Medicine; Emergency Provider Student in an Organized Health Care Education/Training Program; PCP Family Medicine; Visit Provider Family Medicine
DX: N17.9 Acute kidney failure, unspecified (principal); R11.2 Nausea with vomiting, unspecified; E86.0 Dehydration; N18.30 Chronic kidney disease, stage 3 unspecified; R53.1 Weakness; K59.00 Constipation, unspecified; I25.5 Ischemic cardiomyopathy; R63.4 Abnormal weight loss; I50.22 Chronic systolic (congestive) heart failure; N11.9 Chronic tubulo-interstitial nephritis, unspecified; E87.6 Hypokalemia; N39.0 Urinary tract infection, site not specified; R31.9 Hematuria, unspecified
CPT/HCPCS: 36415; 80048; 80053; 81001; 83735; 83880; 84100; 84484; 85025; 87086; 99285; G0378; J0696; J2405; J7120

== ENCOUNTER 2024-05-18 15:21 | Inpatient (IN) | payer MEDICARE, BC, SELFPAY ==
[2024-05-18] VITALS (27 sets, daily range): BP systolic 134–195; BP diastolic 53–118; PULSE 54–105; RESP 14–31; TEMP 36.6–36.9; O2SAT 93–100; BMI 22.4; BMI 22.5
--- NOTE | 2024-05-18 15:25 | CT_ITS ---
FINAL REPORT TECHNIQUE: Axial imaging of the chest is obtained after the administration of contrast. 3-D MIP reformatted images were also obtained and reviewed per PE protocol. CLINICAL HISTORY: back pain stroke symptoms last known normal 5-6 hours ago, speech deficit COMPARISON: 07/18/2023 FINDINGS: The pulmonary arteries are well filled. There is no evidence of pulmonary embolus. There is no aortic aneurysm or dissection. Heart size is enlarged. There is no mediastinal, hilar, or axillary lymphadenopathy. There are small bilateral pleural effusions. There is no pericardial effusion. There is intralobular septal thickening bilaterally with groundglass opacities most consistent with pulmonary edema. There is left greater than right lower lobe airspace disease which is likely related to atelectasis. IMPRESSION: No evidence of thoracic aneurysm or dissection. No pulmonary embolism. Findings most consistent with CHF. Otherwise, no acute abnormality. Reviewed, Interpreted and Dictated by Celia Yeager MD Transcribed by Sara Torres Authenticated and [facility]
--- NOTE | 2024-05-18 15:25 | CT_ITS ---
FINAL REPORT TECHNIQUE: Thin section axial images were obtained through the abdomen and pelvis and after contrast injection per CT angiogram protocol. Multiplanar reconstruction images were obtained from the axial data. This exam was performed with techniques to keep radiation dose as low as reasonably achievable. This includes automated exposure control, adjustment of the MA and KVP, and iterative reconstruction technique. CLINICAL HISTORY: back pain stroke symptoms COMPARISON: 07/18/2023 FINDINGS: CTA ABDOMEN AND PELVIS CTA: No abdominal aortic aneurysm or aortic dissection. The celiac axis, superior mesenteric artery, and inferior mesenteric artery are patent without stenosis. The renal arteries are patent. The common iliac arteries and visualized portions of the internal and external iliac arteries are patent. No significant stenosis. NONVASCULAR: The gallbladder is present. The solid abdominal organs are without acute abnormality. The GI tract is without acute abnormality. There is a large amount of retained stool in the colon. A pessary is seen in the pelvis. There is a cystic lesion in the right adnexa measuring 46 mm. This is not normal in a patient of this age. There is a small amount of ascites. There is no lymphadenopathy. IMPRESSION: No evidence of abdominal aortic aneurysm or dissection. No significant stenosis. Constipation. 46 mm right adnexal cystic lesion is not normal in a patient of this age. Consider PERSONNEL TRAINING OFFICER consultation to determine follow-up. Reviewed, Interpreted and Dictated by Celia Yeager MD Transcribed by Sara Torres Authenticated and [facility]
--- NOTE | 2024-05-18 15:25 | CT_ITS ---
FINAL REPORT TECHNIQUE: Thin section axial images were obtained from skull base to vertex without contrast. Coronal reconstruction images were obtained from the axial data. Exam was performed using dose reduction techniques such as automated exposure control, adjustment of the mA and kV according to patient size, and use of iterative reconstruction technique. CLINICAL HISTORY: possible stroke, L facial droop last known normal 5-6 hours ago, speech deficit FINDINGS: Motion artifact limits the exam. There is atrophy. No mass effect or midline shift. No large hemorrhage. No hydrocephalus. Periventricular low density is likely related to changes of chronic small vessel ischemia. 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 Hypodensities in the left aspect of the upper brainstem could be artifact. Ischemia is not excluded. The soft tissues are without acute abnormality. No acute osseous abnormality is identified. IMPRESSION: Motion artifact limits the exam. No hemorrhage. Artifact versus hypodensity in the left brainstem. Consider MRI when patient is able to tolerate it. Other chronic findings. Reviewed, Interpreted and Dictated by Celia Yeager MD Transcribed by Sara Torres Authenticated and [facility]
--- NOTE | 2024-05-18 15:25 | CT_ITS ---
FINAL REPORT TECHNIQUE: Thin section axial CT with IV contrast supplemented with multiplanar reconstruction under CT angiogram protocol. This study was performed with techniques to keep radiation doses as low as reasonably achievable (ALARA). Individualized dose reduction techniques using automated exposure control or adjustment of mA and/or kV according to the patient''s size were employed. NASCET criteria was utilized during interpretation. CLINICAL HISTORY: possible stroke, L face droop, b/l weak FINDINGS: Exam is limited by motion and patient positioning. Aortic arch: There is normal three-vessel configuration to the arch. Great vessel origins are widely patent. Right carotid: There is no significant stenosis of the right common carotid artery. There is calcified plaque at the carotid bulb with 30% stenosis. The remainder of the right internal carotid artery is patent to the skull base. Evaluation at the skull base is limited by motion. Left carotid: The left common rotted artery is patent. There is calcified plaque at the bulb with a 40% stenosis. The more distal left internal carotid artery is patent to the skull base. Evaluation at the skull base is limited by motion. Vertebral: The bilateral vertebral arteries are patent without significant stenosis. IMPRESSION: Exam is limited by motion and patient positioning. 30% stenosis of the right internal carotid artery and 40% stenosis of the left internal carotid artery. Patent vertebral arteries. Reviewed, Interpreted and Dictated by Celia Yeager MD Transcribed by Sara Torres Authenticated and [facility]
--- NOTE | 2024-05-18 15:25 | CT_ITS ---
FINAL REPORT TECHNIQUE: Thin section axial images are obtained through the brain after intravenous contrast injection. Multiplanar reconstructions were obtained from the axial data. Exam was performed using dose reduction techniques such as automated exposure control, adjustment of the mA and kV according to patient size, and use of iterative reconstruction technique. CLINICAL HISTORY: possible stroke, L face droop, b/l weak last known normal 5-6 hours ago, speech deficit FINDINGS: Exam is limited by motion and patient position as well as contrast bolus timing. There is no evidence of large vessel occlusion. There is no evidence of AVM. IMPRESSION: Exam is limited by motion and positioning. No evidence of large vessel occlusion or AVM. Reviewed, Interpreted and Dictated by Celia Yeager MD Transcribed by Sara Torres Authenticated and [facility]
--- NOTE | 2024-05-18 15:29 | ED_ITS ---
Discharge Plan Disposition Patient Disposition: Admitted Chief Complaint: Neuro Symptoms/Deficit Clinical Impressions Clinical Impression: Acute CVA (cerebrovascular accident), Acute non-ST elevation myocardial infarction (NSTEMI), Acute exacerbation of CHF (congestive heart failure), Lesion of ovary Discharge ED Provider: John [facility] Adult HPI General Chief complaint: Neuro Symptoms/Deficit Stated complaint: Poss CVA Time Seen by Provider: 05/18/24 15:25 History of Present Illness HPI narrative: Patient is 83-year-old female with past medical history of previous NSTEMI, hypertension, hyperlipidemia, congestive heart failure, she is on dual antiplatelet therapy, recent reported diagnosis of urinary tract infection presents emergency department for evaluation of weakness and strokelike symptoms. History is largely obtained by EMS although patient is able to supplement. Approximately 5 to 6 hours ago patient had global body weakness, back pain, left-sided facial droop which persisted causing him to call 911. In the field fingerstick blood glucose was nonactionable. She presents here for continued evaluation. EMS adds that she was recently diagnosed with urinary tract infection completed a course of antibiotics. No trauma. No other acute complaints at this time. Please note that above description of symptoms, in this electronic medical record under categorization of recalled from ER triage doctor by RN are reflective of an initial nursing assessment, however, is not reflective of my full history and physical exam that was personally taken and clarified. Consequentially, this preceding description of symptoms, which may include the patient's categorized chief complaint in the EMR, do not reflect my personal clinical impression, and the ultimate description of history of present illness and patient stated complaints should be deferred to this section of the note. Unless stated otherwise or congruent with this section of the note, additional signs, symptoms, or incongruence should be interpreted as inaccurate with my clinical impression. Related Data Home Medications ?Medication ?Instructions ?Recorded ?Confirmed aspirin 81 mg chewable tablet 81 mg PO DAILY 03/11/23 05/18/24 atorvastatin 40 mg tablet 40 mg PO HS 03/11/23 05/18/24 carvedilol 3.125 mg tablet 3.125 mg PO BID 03/11/23 05/18/24 clopidogrel 75 mg tablet 75 mg PO DAILY 03/11/23 05/18/24 ropinirole 0.5 mg tablet 0.5 mg PO 03/11/23 05/18/24 spironolactone 25 mg tablet 25 mg PO DAILY 03/11/23 05/18/24 trazodone 50 mg tablet 25 - 50 mg PO HSP PRN Insomnia 04/21/23 05/18/24 ondansetron 4 mg disintegrating 4 mg PO Q8H 09/15/23 05/18/24 tablet sacubitril 49 mg-valsartan 51 mg 1 tab PO BID 09/15/23 05/18/24 tablet (Entresto) clonazepam 1 mg tablet 1 mg PO HS 12/16/23 05/18/24 ropinirole 1 mg tablet 1 mg PO DAILY 12/16/23 05/18/24 Previous Rx's ?Medication ?Instructions ?Recorded cefuroxime axetil 500 mg tablet 500 mg PO BID #14 tabs 09/17/23 cefdinir 300 mg capsule 300 mg PO BID 7 days #14 caps 04/26/24 fosfomycin tromethamine 3 gram 1 packet PO ONCE 1 dose #1 ea 05/11/24 oral packet Allergies Allergy/AdvReac Type Severity Reaction Status Date / Time promethazine Allergy Intermediate severe Verified 12/16/23 15:00 vomiting Penicillins Allergy Verified 12/16/23 15:00 Sulfa (Sulfonamide Allergy Verified 12/16/23 15:00 Antibiotics) triprolidine Allergy Verified 12/16/23 15:00 [facility] Disclaimer: The information contained in this section may have been updated after the patient was seen, as this information can be updated by other users. Medical History Pyelonephritis GI bleed Chronic constipation CKD (chronic kidney disease) stage 3, GFR 30-59 ml/min Coronary artery disease Ischemic cardiomyopathy ASCVD (arteriosclerotic cardiovascular disease) Systolic heart failure Cardiomyopathy CHF (congestive heart failure) HLD (hyperlipidemia) Hypertension Left bundle branch block (LBBB) determined by electrocardiography NSTEMI (non-ST elevated myocardial infarction) Surgical History History of cardiac cath 01/2023 S/P partial hysterectomy Family History Other No significant family history Social History Smoking Status: Never smoker alcohol intake: never current occupational status: retired Travel in the last 8 weeks: None Have you lived/traveled outside [place] in past 30 days?: No Contact w/someone who lives/traveled outside [place] past 30 days?: No Exposure to someone with infectious disease in past 14 days?: No Do you have a fever (greater than 100.4 F or 38 C)?: No Have you tested positive for COVID-19: No Exposed to someone with COVID-19 in past 14 days?: No Do you have a sore throat?: No Do you have a cough?: No Do you have any weakness?: No Do you have any diarrhea?: No Are you experiencing any unusual bleeding?: No Do you have any muscle aches/pain?: No Do you have any abdominal pain?: No Are you experiencing loss of taste or smell?: No Other Medical History Have you received the Flu Vaccine for this season: No Have you received the Pneumonia Vaccine: No ROS Obtained: Yes Systems reviewed as appropriate & no additional complaints except as documented Physical Exam General General appearance: alert Head Head exam: atraumatic and normocephalic Eye Eye exam: Present PERRL and EOMI ENT ENT exam: Present mucous membranes moist Neck Neck exam: Present normal inspection Chest Chest inspection: Present normal inspection and symmetric chest wall rise Respiratory Respiratory exam: Present normal lung sounds bilaterally; Absent respiratory distress Cardiovascular Cardiovascular exam: Present regular rate and normal rhythm Abdominal Exam Abdominal exam: Present soft; Absent tenderness Extremities Exam Extremities exam: Present normal inspection Neurological Exam Neurological exam: Present alert and other (Gaze deviation towards the right, patient is conversational, right lower extremity weakness hits the bed, left- sided facial droop that spares the brow.) Psychiatric Psychiatric exam: Present normal affect Skin Skin exam: Present warm and dry Medical Decision Making Medical Records Screening: Per USPSTF and CDC recommendations, given the prevalence of disease in our region, it is our hospital?s policy to screen for HIV and viral Hepatitis for all patients aged 18 and over and those with ongoing risk factors. Zbigniew Inquiry Pt receiving controlled substance: No Vital Signs: 05/18/24 15:24 05/18/24 16:30 05/18/24 16:45 Temperature 98.2 F Temperature Source Oral Pulse Rate 105 H Pulse Rate [Left Radial] 99 H Respiratory Rate 30 H 30 H Blood Pressure 195/118 H Blood Pressure [Right Arm] 160/83 H Blood Pressure Mean [Right Arm] 108 Blood Pressure Source [Right Arm] Automatic Cuff Blood Pressure Position [Right Arm] Supine 02 Sat by Pulse Oximetry 98 97 Oxygen Delivery Method Nasal Cannula Nasal Cannula Oxygen Flow Rate (LPM) 3 3 Fraction of Inspired Oxygen 30 05/18/24 16:45 05/18/24 16:48 Temperature 98.4 F Temperature Source Core Pulse Rate 105 H Pulse Rate [Left Radial] Respiratory Rate 30 H Blood Pressure 178/97 H Blood Pressure [Right Arm] Blood Pressure Mean [Right Arm] Blood Pressure Source [Right Arm] Blood Pressure Position [Right Arm] 02 Sat by Pulse Oximetry 97 96 Oxygen Delivery Method CPAP Nasal Cannula Oxygen Flow Rate (LPM) 3 Fraction of Inspired Oxygen 30 Lab Data Lab Results 05/18/24 16:05: WBC 7.4, RBC 3.32 L, Hgb 7.1 L, Hct 24.1 L, MCV 72.6 L, MCH 21.4 L, MCHC 29.5 L, RDW 17.5, Plt Count 264, MPV 8.5, Neut % (Auto) 72.6, Lymph % (Auto) 11.7, [place] % (Auto) 11.2 H, Eos % (Auto) 3.3, Baso % (Auto) 0.8, Neut # (Auto) 5.3, Lymph # (Auto) 0.9, [place] # (Auto) 0.8, Eos # (Auto) 0.2, Baso # (Auto) 0.1, PT 11.1, INR 0.99, APTT 26.1, Sodium 137, Potassium 3.5, Chloride 103, Carbon Dioxide 28, Anion Gap 9.5, BUN 9, Creatinine 0.70, Estimated Creat Clear 42, Estimated GFR 80, Est GFR ( Amer) 97, Glucose 125 H, Calcium 8.0 L, Total Bilirubin 0.4, AST 27, ALT 11 L, Alkaline Phosphatase 89, Troponin I 0.49 H, NT-Pro-B Natriuret Pep 9590 H, Total Protein 6.1 L, Albumin 3.1 L, Globulin 3.0, Albumin/Globulin Ratio 1.0 L, Triglycerides 99, Cholesterol 88 L, LDL Cholesterol Direct 36.25 L, VLDL Cholesterol 20, HDL Cholesterol 31 L, Cholesterol/HDL Ratio 2.8, Plasma/Serum Alcohol < 10 05/18/24 16:15: Urine Color Yellow, Urine Appearance Clear, Urine pH 7.0, Ur Specific [place] 1.015, Urine Protein Negative, Urine Glucose (UA) Negative, Urine Ketones Negative, Urine Blood Negative, Urine Nitrate Negative, Urine Bilirubin Negative, Urine Urobilinogen 0.2, Ur Leukocyte Esterase Negative, Urine RBC Occasional, Urine WBC Occasional, Ur Squamous Epith Cells Occasional, Urine Opiates Screen Negative, Urine Methadone Screen Negative, Ur Barbituates Screen Negative, Ur Phencyclidine Scrn Negative, Ur Amphetamines Screen Negative, U Benzodiazepines Scrn Negative, Urine Cocaine Screen Negative, U Marijuana (THC) Screen Negative 05/18/24 16:17: VBG pH 7.39, VBG pCO2 40.3, VBG pO2 65.7 H, VBG HCO3 23.7, VBG Total CO2 24.9, VBG O2 Saturation 91.5 H, VBG Base Excess -1.3, VBG Lactic Acid 1.2 05/18/24 16:05 05/18/24 16:05 Orders (Tests/Meds): ED MEDICATIONS Generic Name Dose Route Start Last Admin Trade Name Naun PRN Reason Stop Dose Admin Ceftriaxone Sodium 1 gm/ 50 mls @ 100 mls/hr 05/18/24 16:30 05/18/24 16:28 Sodium Chloride IV 05/28/24 16:29 100 mls/hr Q24H SHAINA Administration Sodium Chloride 10 ml 05/18/24 15:25 Sodium Chloride 0.9% 10ml Flush Syringe IV 06/17/24 15:24 NEEDED PRN Maintain IV Site Discontinued Medications Generic Name Dose Route Start Last Admin Trade Name [place] PRN Reason Stop Dose Admin Acetaminophen 1,000 mg 05/18/24 16:35 05/18/24 16:43 Acetaminophen 1,000mg/100ml Vial IV 05/18/24 16:36 1,000 mg ONCE ONE Administration Furosemide 40 mg 05/18/24 16:53 05/18/24 17:11 Furosemide 40mg/4ml Vial IV 05/18/24 16:54 40 mg ONCE ONE Administration Iopamidol 80 ml 05/18/24 15:53 05/18/24 15:54 Iopamidol-370 (76%);100ml Bottle IV 05/18/24 15:54 80 ml ONCE ONE Administration Iopamidol 80 ml 05/18/24 15:53 05/18/24 15:54 Iopamidol-370 (76%);100ml Bottle IV 05/18/24 15:54 80 ml ONCE ONE Administration Sodium Chloride 50 ml 05/18/24 15:53 05/18/24 15:55 0.9 % Sodium Chloride 50 Ml Vial IV 05/18/24 15:54 50 ml ONCE ONE Administration Sodium Chloride 10 ml 05/18/24 15:53 05/18/24 15:55 Sodium Chloride 0.9% 10ml Syr (Rad Only) IV 05/18/24 15:54 10 ml ONCE ONE Administration Sodium Chloride 50 ml 05/18/24 15:53 05/18/24 15:55 0.9 % Sodium Chloride 50 Ml Vial IV 05/18/24 15:54 50 ml ONCE ONE Administration Sodium Chloride 10 ml 05/18/24 15:53 05/18/24 15:55 Sodium Chloride 0.9% 10ml Syr (Rad Only) IV 05/18/24 15:54 10 ml ONCE ONE Administration ORDERS Category Date Time Status CT angio abdomen pelvis Stat Cat Scan 05/18/24 15:[address] angio chest - dissection Stat Cat Scan 05/18/24 15:[address] angio head Stat Cat Scan 05/18/24 15:[address] angio neck Stat Cat Scan 05/18/24 15:[address] head/brain wo con Stat Cat Scan 05/18/24 15:25 Completed Activated Partial Thrombo Time Stat Lab 05/18/24 16:05 Completed BNP [NT Pro Brain Natriuretic Pep.] Stat Lab 05/18/24 16:05 Completed Complete Blood Count Auto Diff Stat Lab 05/18/24 16:05 Completed Comprehensive Metabolic Panel Stat Lab 05/18/24 16:05 Completed Drug Screen,Urine Stat Lab 05/18/24 16:15 Completed Ethyl Alcohol Stat Lab 05/18/24 16:05 Completed Lipid Panel Stat Lab 05/18/24 16:05 Completed Prothrombin Time INR Stat Lab 05/18/24 16:05 Completed Troponin I Q3H Lab 05/18/24 18:30 Ordered Troponin I Q3H Lab 05/18/24 21:30 Ordered Troponin I Stat Lab 05/18/24 16:05 Completed Urinalysis and Microscopic Stat Lab 05/18/24 16:15 Completed Blood Culture Stat Micro 05/18/24 16:21 Received VBG [Venous Blood Gas] Stat RT 05/18/24 16:17 Completed ECG Request Stat Y 05/18/24 15:25 Ordered ECG Data Tracing #1: Independently turned by me rate is 106, rhythm is regular, axis is borderline rightward deviated, left bundle branch block, negative Sgarbossa. Medical Decision Narrative: In summary patient is 83-year-old female past medical history described above presents emerged part for evaluation of back pain and strokelike symptoms in the setting of reported recent urinary tract infection. Patient is hemodynamically stable upon arrival, fingerstick blood glucose nonactionable. Large-bore IVs will be obtained. Patient will undergo rapid stroke protocol. My concern for cerebrovascular accident versus aortic dissection is high based on back pain and strokelike symptoms. She is outside the window for thrombolytics. She does not take anticoagulants and does not have a history of trauma. Broad workup will be conducted with hematologic labs urinalysis EKG noncontrasted CT scan of the head CTA of the head neck chest abdomen pelvis. Urinalysis will be obtained. I had discussion with patient at bedside as to her wishes, if she needs to be intubated or undergo ACLS she wishes to pursue this. Patient is able to understand her choice, appreciate her choice and reason through her choice thereby having capacity to make this decision. Initial temperature 96 degrees given recent urinary tract infection will cover for sepsis with ceftriaxone. Mild tachycardia in the low 100s given history of CKD and previous ejection fraction in 2023 reviewed by me as 25% on [id number] bedside ultrasound shows grossly decreased ejection fraction with diffuse B-lines crystalloid resuscitation will be deferred. Patient is now requiring 3 L nasal cannula and cannot lay flat. Will start with moderate CPAP and effort to squeeze out some of the pulmonary edema. Patient has no chest pain. Initial workup reviewed by me, urinalysis interpreted and not consistent with infection. Patient has hemoglobin of 7.1 with no active evidence of bleeding she has a chronic anemia however this is a little worse than normal. It is not transfusable currently, compensated acid-base status no critical electrolyte abnormality or YAMEL. However her troponin is significant elevated at 0.49. She has a left bundle branch block with negative Sgarbossa repeat EKG shows no dynamic changes I discussed case with Dr. Hemphill who agrees. Patient is likely having an NSTEMI. CTA neck no critical stenosis, CTA head no LVO, noncontrasted CT scan was limited by motion artifact however there is concerning hypodensity in the left brainstem for which MRI was recommended. CTA chest consistent with CHF which fits her clinical picture. CTA abdomen and pelvis adnexal cystic lesion not normal for patient age for which outpatient INFORMATION RESOURCES MANAGER consultation recommended. In totality patient has a likely cerebrovascular accident, NSTEMI, new cystic lesion in her pelvis, heart failure exacerbation with acute hypoxia. The case was discussed with Dr. Linda regarding management we will admit the patient to their service for continued evaluation at this time. Critical Care Critical Care Time Critical Care Time: Yes Attestation: On 05/18/24, the high probability of a clinically significant, sudden or life threatening deterioration of the following system(s) required my full and direct attention, intervention and personal management. The time I documented below is in addition to time spent performing reported procedures but includes the following listed in this critical care notation. Total Time Total Critical Care Time: 45
[2024-05-18] MEDS: IOPAMIDOL-370 (76%);100ML BOTTLE 80 ML IV ×2 (15:54)
[2024-05-18] MEDS: SODIUM CHLORIDE 0.9% 10ML SYR (RAD ONLY) 10 ML IV ×2 (15:55)
[2024-05-18] MEDS: 0.9 % SODIUM CHLORIDE 50 ML VIAL IV ×2 (15:55)
[2024-05-18 16:16] LABS: Basophils # 0.1 K/mm3 (0-0.2); Basophils % 0.8 % (0.1-2.0); Eosinophils # 0.2 K/mm3 (0.0-0.4); Eosinophils % 3.3 % (0.1-12.0); Hematocrit 24.1 % (37.0-47.0); Hemoglobin 7.1 g/dL (12.2-16.2); Lymphocytes # 0.9 K/mm3 (0.7-4.5); Lymphocytes % 11.7 % (10-50); Mean Corpuscular HGB Conc 29.5 g/dL (31.8-35.4); Mean Corpuscular Hemoglobin 21.4 pg (27.0-31.2); Mean Corpuscular Volume 72.6 fl (81-99); Mean Platelet Volume 8.5 fl (7.4-10.4); Monocytes # 0.8 K/mm3 (0.1-1.0); Monocytes % 11.2 % (1.7-9.3); Neutrophils # 5.3 K/mm3 (1.8-7.8); Neutrophils % 72.6 % (37.0-80.0); Platelet Count 264 K/mm3 (142-424); Red Blood Count 3.32 M/mm3 (4.20-5.40); Red Cell Distribution Width 17.5 % (11.5-17.5); White Blood Count 7.4 K/mm3 (4.8-10.8)
--- NOTE | 2024-05-18 16:19 | ECG_ITS ---
APPROVED REPORT Exam: Resting ECG HR:106 bpm ECG Measurements Heart Rate 106 AXES QRSd 146 QRS 98 QT 374 T -53 QTc 436 Conclusion ATRIAL FLUTTER/TACHYCARDIA WITH RAPID VENTRICULAR RESPONSE BORDERLINE RIGHT AXIS DEVIATION [QRS AXIS > 90] INTRAVENTRICULAR CONDUCTION DELAY [130+ ms QRS DURATION] ABNORMAL ECG No STEMI Electronically signed by : NIKOLAY ARRIAGA, 05/20/2024 04:47:04
[2024-05-18 16:22] LABS: Appearance,Urine CLEAR (Clear); Bilirubin,Urine Negative (Negative); Blood, Urine Negative (Negative); Color,Urine YELLOW (Yellow); Glucose,Urine (UA) Negative (Negative); Ketones,Urine Negative (Negative); Leukocyte Esterase,Urine Negative (Negative); Microscopic, Urine URINE MICROSCOPIC (MICROSCOPIC); Nitrate,Urine Negative (Negative); Protein,Urine Negative (Negative); Specific Gravity, Urine 1.015 (1.005-1.030); Urobilinogen,Urine 0.2 EU/dl (0.2)
[2024-05-18 16:25] LABS: Lactate Venous 1.2 mmol/L (0.4-2.0); VBG Base Excess -1.3 mmol/L (-2.4-2.3); VBG HCO3 23.7 mmol/L (23-30); VBG Oxygen Saturation 91.5 % (50-70); VBG PCO2 40.3 mmol/L (35-51); VBG PH 7.39 mmol/L (7.31-7.41); VBG PO2 65.7 mmol/L (28-40); VBG Total CO2 24.9 mmol/L (23-27)
[2024-05-18] MEDS: CEFTRIAXONE 1 GM 1 GM in 0.9 % SODIUM CHLORIDE 50 ML IV (16:28)
[2024-05-18 16:29] LABS: Activated Partial Thrombo Time 26.1 seconds (22.8-30.6); INR 0.99 (0.9-1.1); Prothrombin Time 11.1 seconds (10.1-12.5)
[2024-05-18 16:39] LABS: Amphetamine/Metha Screen,Urine Negative ng/ml (<1000)
[2024-05-18 16:42] LABS: Cannabinoid Screen,Urine Negative ng/ml (<50)
[2024-05-18 16:42] LABS: NT Pro Brain Natriuretic Pep. 9590 pg/mL (0-450)
[2024-05-18 16:43] LABS: Cocaine Screen,Urine Negative ng/ml (<300)
[2024-05-18] MEDS: ACETAMINOPHEN 1,000MG/100ML VIAL 1000 MG IV (16:43)
[2024-05-18 16:44] LABS: Methadone Screen,Urine Negative ng/ml (<300); Opiate Screen,Urine Negative ng/ml (<300)
[2024-05-18 16:45] LABS: Phencyclidine Screen,Urine Negative ng/ml (<25)
--- NOTE | 2024-05-18 16:49 | PC.NURSE ---
stroke alert called 1524. pt presented to ED via EMS for possible stroke. IV access was unable to be obtained while in room. pt was taken to ct scanner for head w/o contrast. bilateral IV access obtained while pt in radiology. 20 G R hand 20 G L AC IVUSG pt to scanner via stretcher at 1527. 110- bedside glucose NIHSS performed 1554 - score 3 1605 labs/cultures obtained and sent to lab. 1610 temp sensing collier placed, urine sent to lab. family brought back to room to be with pt.
--- NOTE | 2024-05-18 16:51 | PC.NURSE ---
per MD verbal order, no fluid bolus given due to CHF exacerbation.
--- NOTE | 2024-05-18 16:52 | PC.NURSE ---
DR VITAL PAGED FOR SUBSTITUTE TEACHER SERVICE
--- NOTE | 2024-05-18 17:00 | PC.NURSE ---
DR MATHIS SPEAKING WITH DR VITAL
[2024-05-18 17:06] LABS: Albumin Level 3.1 g/dl (3.5-5.0); Chloride 103 mmol/L (98-107); Sodium 137 mmol/L (136-145)
[2024-05-18 17:07] LABS: Potassium 3.5 mmoL/L (3.5-5.1)
--- NOTE | 2024-05-18 17:07 | PC.NURSE ---
PEDIATRIC CLINICAL DIETICIAN NOTIFIED OF ADMISSION
[2024-05-18 17:09] LABS: Alanine Aminotransferase 11 U/L (12-78); Anion Gap 9.5 mEq/L (5-15); Aspartate Amino Transferase 27 U/L (14-36); Blood Urea Nitrogen 9 mg/dl (7-17); Carbon Dioxide 28 mmol/L (22.0-30.0); Creatinine Clearance Estimated 42 mL/min (50-200); Estimated Glomerular Filt Rate 80 ml/min (>60); GFR (African American) 97 ML/MIN (>60); Total Protein,Serum 6.1 g/dl (6.3-8.2)
[2024-05-18 17:10] LABS: Alkaline Phosphatase 89 U/L (38-126); Bilirubin,Total 0.4 mg/dl (0.2-1.3); Chol/HDL Ratio 2.8 (1-3.5); Cholesterol 88 mg/dl (140-200); Glucose 125 mg/dl (74-100); HDL Cholesterol 31 mg/dl (40-60); Triglycerides 99 mg/dl (30-150); VLDL Cholesterol 20 mg/dL (0-40)
[2024-05-18] MEDS: FUROSEMIDE 40MG/4ML VIAL 40 MG IV ×2 (17:11→19:57)
[2024-05-18 17:12] LABS: RBC,Urine Occasional #/hpf (0-3); Squamous Epithelial Cell,Urine Occasional #/hpf (0-5); WBC,Urine Occasional #/hpf (0-3)
[2024-05-18 17:17] LABS: Ethyl Alcohol < 10 mg/dl (0-10)
[2024-05-18 17:17] LABS: Benzodiazepines Screen,Urine Negative ng/ml (<200)
--- NOTE | 2024-05-18 17:17 | PC.NURSE ---
I rounded on the pt. I helped her reposition and brought her a warm blanket for comfort. no needs voiced. no new complaints. and caregiver bedside. call light in reach.
[2024-05-18 17:18] LABS: Barbiturates Screen,Urine Negative ng/ml (<200)
[2024-05-18 17:21] LABS: Direct LDL Cholesterol 36.25 mg/dL (100-129)
--- NOTE | 2024-05-18 17:27 | PC.NURSE ---
report called to gladis in ICU
[2024-05-18 17:29] LABS: Troponin I 0.49 ng/ml (0.00-0.034)
--- NOTE | 2024-05-18 17:34 | PC.NURSE ---
ED called, troponin is 0.49. States to wait to transfer from ED to ICU for further instruction on POC
--- NOTE | 2024-05-18 17:36 | ECG_ITS ---
APPROVED REPORT Exam: Resting ECG HR:77 bpm ECG Measurements Heart Rate 77 AXES MT 159 P 81 QRSd 154 QRS 94 QT 460 T 85 QTc 492 Conclusion SINUS RHYTHM BORDERLINE RIGHT AXIS DEVIATION [QRS AXIS > 90] INTRAVENTRICULAR CONDUCTION DELAY [130+ ms QRS DURATION] ABNORMAL ECG No STEMI Electronically signed by : NIKOLAY ARRIAGA, 05/19/2024 07:08:51
--- NOTE | 2024-05-18 17:56 | EXP.HP ---
History of Present Illness *Admission Date: 05/18/24 *Reason for visit:: left facial drooping, weakness *History of present illness: Patient is 83-year-old female with past medical history of previous NSTEMI, hypertension, hyperlipidemia, congestive heart failure, she is on dual antiplatelet therapy, recent reported diagnosis of urinary tract infection presents emergency department for evaluation of weakness and strokelike symptoms. History is largely obtained by EMS although patient is able to supplement. Approximately 5 to 6 hours ago patient had global body weakness, back pain, left-sided facial droop which persisted causing him to call 911. In the field fingerstick blood glucose was nonactionable. She presents here for continued evaluation. EMS adds that she was recently diagnosed with urinary tract infection completed a course of antibiotics. No trauma. No other acute complaints at this time. In summary patient is 83-year-old female past medical history described above presents emerged part for evaluation of back pain and strokelike symptoms in the setting of reported recent urinary tract infection. Patient is hemodynamically stable upon arrival, fingerstick blood glucose nonactionable. Large-bore IVs will be obtained. Patient will undergo rapid stroke protocol. My concern for cerebrovascular accident versus aortic dissection is high based on back pain and strokelike symptoms. She is outside the window for thrombolytics. She does not take anticoagulants and does not have a history of trauma. Broad workup will be conducted with hematologic labs urinalysis EKG noncontrasted CT scan of the head CTA of the head neck chest abdomen pelvis. Urinalysis will be obtained. I had discussion with patient at bedside as to her wishes, if she needs to be intubated or undergo ACLS she wishes to pursue this. Patient is able to understand her choice, appreciate her choice and reason through her choice thereby having capacity to make this decision. Initial temperature 96 degrees given recent urinary tract infection will cover for sepsis with ceftriaxone. Mild tachycardia in the low 100s given history of CKD and previous ejection fraction in 2023 reviewed by me as 25% on [id number] bedside ultrasound shows grossly decreased ejection fraction with diffuse B-lines crystalloid resuscitation will be deferred. Patient is now requiring 3 L nasal cannula and cannot lay flat. Will start with moderate CPAP and effort to squeeze out some of the pulmonary edema. Patient has no chest pain. Initial workup reviewed by me, urinalysis interpreted and not consistent with infection. Patient has hemoglobin of 7.1 with no active evidence of bleeding she has a chronic anemia however this is a little worse than normal. It is not transfusable currently, compensated acid-base status no critical electrolyte abnormality or YAMEL. However her troponin is significant elevated at 0.49. She has a left bundle branch block with negative Sgarbossa repeat EKG shows no dynamic changes I discussed case with Dr. Hemphill who agrees. Patient is likely having an NSTEMI. CTA neck no critical stenosis, CTA head no LVO, noncontrasted CT scan was limited by motion artifact however there is concerning hypodensity in the left brainstem for which MRI was recommended. CTA chest consistent with CHF which fits her clinical picture. CTA abdomen and pelvis adnexal cystic lesion not normal for patient age for which outpatient METALWORKER consultation recommended. In totality patient has a likely cerebrovascular accident, NSTEMI, new cystic lesion in her pelvis, heart failure exacerbation with acute hypoxia. The case was discussed with Dr. Linda regarding management we will admit the patient to their service for continued evaluation at this time. (above as per ER physician) [facility] Disclaimer: The information contained in this section may have been updated after the patient was seen, as this information can be updated by other users. Medical History Pyelonephritis GI bleed Chronic constipation CKD (chronic kidney disease) stage 3, GFR 30-59 ml/min Coronary artery disease Ischemic cardiomyopathy ASCVD (arteriosclerotic cardiovascular disease) Systolic heart failure Cardiomyopathy CHF (congestive heart failure) HLD (hyperlipidemia) Hypertension Left bundle branch block (LBBB) determined by electrocardiography NSTEMI (non-ST elevated myocardial infarction) Surgical History History of cardiac cath S/P partial hysterectomy Family History No significant family history Social History Smoking Status: Never smoker alcohol intake: never current occupational status: retired Travel in the last 8 weeks: None Other Medical History Have you received the Flu Vaccine for this season: No Have you received the Pneumonia Vaccine: No Review of Systems Constitutional Constitutional: Denies chills, Reports fatigue, Denies fever(s), Denies headache(s), Reports malaise and Reports weakness Eyes Eyes: Denies blurry vision and Denies diplopia ENT Ears, Nose, Mouth, and Throat: Denies headache(s), Denies nasal congestion and Denies sore throat *Cardiovascular Cardiovascular: Denies chest pain, Reports dyspnea, Denies leg edema and Denies palpitations *Respiratory Respiratory: Denies cough and Reports dyspnea *Gastrointestinal Gastrointestinal: Denies loose stools, Denies nausea and Denies vomiting *Genitourinary Genitourinary: Reports difficulty voiding and Reports dysuria *Musculoskeletal Musculoskeletal: Reports back pain and Denies muscle weakness *Neurologic Neurologic: Denies abnormal speech, Denies confusion, Denies convulsions, Denies headache(s), Reports weakness and Reports other (facial droop on the left and leaning to the left) Psychiatric Psychiatric: Denies confusion Endocrine Endocrine: Reports fatigue and Denies palpitations Meds Home Medications and Allergies Home Medications ?Medication ?Instructions ?Recorded ?Confirmed ?Type aspirin 81 mg chewable tablet 81 mg PO DAILY 03/11/23 05/18/24 History atorvastatin 40 mg tablet 40 mg PO HS 03/11/23 05/18/24 History carvedilol 3.125 mg tablet 3.125 mg PO BID 03/11/23 05/18/24 History clopidogrel 75 mg tablet 75 mg PO DAILY 03/11/23 05/18/24 History ropinirole 0.5 mg tablet 0.5 mg PO HS 03/11/23 05/18/24 History spironolactone 25 mg tablet 25 mg PO DAILY 03/11/23 05/18/24 History ondansetron 4 mg disintegrating 4 mg PO Q8H 09/15/23 05/18/24 History tablet sacubitril 49 mg-valsartan 51 mg 1 tab PO BID 09/15/23 05/18/24 History tablet (Entresto) cefuroxime axetil 500 mg tablet 500 mg PO BID #14 tabs 09/17/23 05/18/24 Rx clonazepam 1 mg tablet 1 mg PO HS 12/16/23 05/18/24 History ropinirole 1 mg tablet 1 mg PO DAILY 12/16/23 05/18/24 History New Prescriptions to Start Prescriptions: Allergies Allergy/AdvReac Type Severity Reaction Status Date / Time promethazine Allergy Intermediate severe Verified 05/18/24 18:51 vomiting Penicillins Allergy Unknown Verified 05/18/24 18:51 allergy reaction Sulfa (Sulfonamide Allergy Unknown Verified 05/18/24 18:51 Antibiotics) allergy reaction triprolidine Allergy Unknown Verified 05/18/24 18:51 allergy reaction Exam Data for Last 24 hours Vital signs and Labs for Last 24 Hours: Temp Pulse Resp BP Pulse Ox O2 Del Method O2 Flow Rate 98.4 F 105 H 30 H 178/97 H 96 Nasal Cannula 3 05/18/24 16:48 05/18/24 16:48 05/18/24 16:48 05/18/24 16:48 05/18/24 16:48 05/18/24 16:48 05/18/24 16:48 FiO2 30 05/18/24 16:45 Laboratory Results - last 24 hr 05/18/24 16:05: WBC 7.4, RBC 3.32 L, Hgb 7.1 L, Hct 24.1 L, MCV 72.6 L, MCH 21.4 L, MCHC 29.5 L, RDW 17.5, Plt Count 264, MPV 8.5, Neut % (Auto) 72.6, Lymph % (Auto) 11.7, [place] % (Auto) 11.2 H, Eos % (Auto) 3.3, Baso % (Auto) 0.8, Neut # (Auto) 5.3, Lymph # (Auto) 0.9, [place] # (Auto) 0.8, Eos # (Auto) 0.2, Baso # (Auto) 0.1, PT 11.1, INR 0.99, APTT 26.1, Sodium 137, Potassium 3.5, Chloride 103, Carbon Dioxide 28, Anion Gap 9.5, BUN 9, Creatinine 0.70, Estimated Creat Clear 42, Estimated GFR 80, Est GFR ( Amer) 97, Glucose 125 H, Calcium 8.0 L, Total Bilirubin 0.4, AST 27, ALT 11 L, Alkaline Phosphatase 89, Troponin I 0.49 H, NT-Pro-B Natriuret Pep 9590 H, Total Protein 6.1 L, Albumin 3.1 L, Globulin 3.0, Albumin/Globulin Ratio 1.0 L, Triglycerides 99, Cholesterol 88 L, LDL Cholesterol Direct 36.25 L, VLDL Cholesterol 20, HDL Cholesterol 31 L, Cholesterol/HDL Ratio 2.8, Plasma/Serum Alcohol < 10 05/18/24 16:15: Urine Color Yellow, Urine Appearance Clear, Urine pH 7.0, Ur Specific [place] 1.015, Urine Protein Negative, Urine Glucose (UA) Negative, Urine Ketones Negative, Urine Blood Negative, Urine Nitrate Negative, Urine Bilirubin Negative, Urine Urobilinogen 0.2, Ur Leukocyte Esterase Negative, Urine RBC Occasional, Urine WBC Occasional, Ur Squamous Epith Cells Occasional, Urine Opiates Screen Negative, Urine Methadone Screen Negative, Ur Barbituates Screen Negative, Ur Phencyclidine Scrn Negative, Ur Amphetamines Screen Negative, U Benzodiazepines Scrn Negative, Urine Cocaine Screen Negative, U Marijuana (THC) Screen Negative 05/18/24 16:17: VBG pH 7.39, VBG pCO2 40.3, VBG pO2 65.7 H, VBG HCO3 23.7, VBG Total CO2 24.9, VBG O2 Saturation 91.5 H, VBG Base Excess -1.3, VBG Lactic Acid 1.2 I & O for Last 24 hours: Intake & Output 05/16/24 05/17/24 05/18/24 05/19/24 11:59 11:59 11:59 11:59 Weight 139 lb 1.6 oz Constitutional Constitutional: no acute distress *Routine HEENT Exam Head: Present normocephalic and atraumatic Eye: Present EOMI and PERRL ENT: Present mucous membranes dry *Routine Neck Exam Neck: Present supple and full ROM *Routine Respiratory Exam Respiratory: Present CTA bilaterally (BIPAP in place) *Routine Cardiovascular Exam Cardiovascular: Present RRR *Routine Abdominal Exam Abdominal: Present soft and normoactive bowel sounds; Absent tenderness *Routine Rectal Exam Rectal:: deferred *Routine Genitalia Exam Genitalia:: deferred *Routine Extremities Exam Extremities: Absent cyanosis, clubbing or edema *Routine Skin Exam Skin: Present intact; Absent erythema *Routine Neurological Exam Neurological: Present alert, oriented X3 and facial asymmetry (some drooping of the face, able to speak clearly); Absent sensory deficit or motor deficit Additional Findings:: H&P: Result Impressions Abdominal/Pelvic CTA -No evidence of abdominal aortic aneurysm or dissection. No significant stenosis. Constipation. 46 mm right adnexal cystic lesion is not normal in a patient of this age. Consider METALWORKER consultation to determine follow-up. Chest CTA - No evidence of thoracic aneurysm or dissection. No pulmonary embolism. Findings most consistent with CHF. Otherwise, no acute abnormality. Head CT - Motion artifact limits the exam. No hemorrhage. Artifact versus hypodensity in the left brainstem. Consider MRI when patient is able to tolerate it. Other chronic findings. Head CTA - Exam is limited by motion and positioning. No evidence of large vessel occlusion or AVM. Neck CTA - Exam is limited by motion and patient positioning. 30% stenosis of the right internal carotid artery and 40% stenosis of the left internal carotid artery. Patent vertebral arteries. Assessment and Plan *Assessment and plan (1) Acute CVA (cerebrovascular accident): Status: Acute Category: Medical Code(s): I63.9 - Cerebral infarction, unspecified (2) Acute non-ST elevation myocardial infarction (NSTEMI): Status: Acute Category: Medical Code(s): I21.4 - Non-ST elevation (NSTEMI) myocardial infarction (3) Acute exacerbation of CHF (congestive heart failure): Status: Acute Category: Medical Code(s): I50.9 - Heart failure, unspecified (4) Anemia: Status: Acute Category: Medical Code(s): D64.9 - Anemia, unspecified (5) Lesion of ovary: Status: Acute Category: Medical Code(s): N83.9 - Noninflammatory disorder of ovary, fallopian tube and broad ligament, unspecified (6) CKD (chronic kidney disease) stage 3, GFR 30-59 ml/min: Status: Acute Category: Medical Code(s): N18.30 - Chronic kidney disease, stage 3 unspecified (7) Ischemic cardiomyopathy: Status: Acute Category: Medical Code(s): I25.5 - Ischemic cardiomyopathy (8) Coronary artery disease: Status: Acute Qualifiers: Associated angina: without angina Coronary Disease-Associated Artery/Lesion type: [place] artery [place] vs. transplanted heart: [place] heart Qualified Code(s): I25.10 - Atherosclerotic heart disease of [place] coronary artery without angina pectoris Category: Medical Code(s): I25.10 - Atherosclerotic heart disease of [place] coronary artery without angina pectoris (9) Chronic HFrEF (heart failure with reduced ejection fraction): Status: Acute Category: Medical Code(s): I50.22 - Chronic systolic (congestive) heart failure (10) HTN (hypertension): Status: Acute Qualifiers: Hypertension type: unspecified Qualified Code(s): I10 - Essential (primary) hypertension Category: Medical Code(s): I10 - Essential (primary) hypertension (11) Acute hypoxic respiratory failure: Status: Acute Category: Medical Code(s): J96.01 - Acute respiratory failure with hypoxia Plan Patient is still in the ER and has been placed on BIPAP. She is less SOA and denies any pain at this time. Will likely need an MRI. Cardiology will see the patient tomorrow. HGB is low. Will check stool for blood and transfuse with 1 unit of PRBC's. Will discuss further care with Dr. Linda. Dr. Linda entry - Saw patient, agree with above note. Baseline LVEF is 25%. Plan to diurese overnight and give one unit of blood, will start Protonix IV every 12 hours, keep npo for now, cardiology has indicated they will see patient tomorrow. May need MRI brain when more stable.
[2024-05-18 19:26] LABS: Troponin I 0.54 ng/ml (0.00-0.034)
[2024-05-18] MEDS: ASPIRIN 81MG CHEWABLE TABLET 324 MG PO (19:56)
[2024-05-18] MEDS: 0.9 % SODIUM CHLORIDE 250 ML 25 ML IV (20:30)
--- NOTE | 2024-05-18 23:17 | PC.NURSE ---
After beginning blood transfusion at 2039, nurse was in room for the first 15 min at bedside monitoring pt. At 2049 pt started complaining of right arm pain. The nurse then assessed the site and noticed that the iv that the blood was transfusing through had infiltrated. Nurse immediately stopped transfusion. The iv was removed, skin noticed to be bluish in color and swelling. A gauze dressing was applied to previous iv site at that time. Blood was restarted in the left upper arm IV.
[2024-05-18] MEDS: PANTOPRAZOLE 40MG VIAL 40 MG IV (23:48)
[2024-05-19] VITALS (19 sets, daily range): BP systolic 131–183; BP diastolic 57–102; PULSE 57–90; RESP 11–25; TEMP 36.5–37.4; O2SAT 94–100; BMI 23.3
[2024-05-19 01:39] LABS: Hematocrit 28.6 % (37.0-47.0)
[2024-05-19] MEDS: ACETAMINOPHEN 1,000MG/100ML VIAL 1000 MG IV ×2 (03:25→11:01)
[2024-05-19 03:39] LABS: Hemoglobin 8.8 g/dL (12.2-16.2)
--- NOTE | 2024-05-19 07:11 | PC.NURSE ---
Attempted to call business administration instructor provider regarding pts pain from RLS. Provider stated to wait until primary provider does his rounds. No new orders at this time. On coming nurse notified.
[2024-05-19] MEDS: PANTOPRAZOLE 40MG VIAL 40 MG IV ×2 (08:10→20:20)
[2024-05-19] MEDS: SODIUM CHLORIDE 0.9% 10ML VIAL 10 ML IV ×2 (08:10→20:20)
--- NOTE | 2024-05-19 08:15 | HMH.PHAINT1 ---
Pharmacy Intervention Comments: MEDICATION RECONCILIATION COMPLETED ON PATIENT USING EXTERNAL FILL HISTORY FROM PHARMACY AND CARMELA REPORT. -KRISTEN HORNE, BENNYD
--- NOTE | 2024-05-19 08:21 | CA_ITS ---
APPROVED REPORT EXAM: Comprehensive 2D, Doppler, and color-flow Echocardiogram [employer]: Aide Jarvis RVT Ht: 5 ft 2 in Wt: 131lbs BSA: 1.60 BP: 178/97 mmHg Indications: CVA,CM EF OF 25% ON 05/04/23,CAD,LBB,CHF,HTN,HLD Echo Enhancing Agent Indication: Rule out thrombus Agent(s) / Amount(s) Used: Definity 2 cc 2D Dimensions LA Volume 68.20 mL LA Volume Index 42.63 mL/m2 (M/F) 16-34 M-Mode Dimensions RVDd 2.24 cm (0.9-2.6) LA Diam 4.18 cm (1.9-4.0) LVDd 5.37 cm (3.5-5.7) LVDs 4.59 cm (3.5-5.7) IVSd 0.46 cm (0.6-1.1) PWd 0.71 cm (0.6-1.1) EF (Teich) 30.60% FS 14.50% EDV (Teich) 139.50 mL TAPSE 1.68 (<1.7) ESV (Teich) 96.80 mL LV Diastology E Decel Time 150 (160-240 msec) E/A Ratio 0.7 Aortic Valve LILLI Index 1.57 cm2/m2 AoV Peak Flaco. 128.0 (50-130 cm/s) AO Peak GR. 6.50 mmHg AO Mean GR. 3.40 (<5 mmHg) AO VTI 24.2 (18-25 cm) LILLI (VTI) 2.58 (2.5-4.5 cm2) Mitral Valve MV E Max Flaco. 79.0 (40-130 cm/s) MV A Velocity 113.0 (40-130 cm/s) E/A Ratio 0.69 MV PHT 44.0 ms Pulmonary Valve PV Peak Velocity 97.0 (50-150 cm/s) Tricuspid Valve TR P. Velocity 268.00 cm/s RAP Estimate 10.00 mmHg RVSP 38.70 mmHg Left Ventricle The left ventricle is mildly dilated. Left ventricular systolic function is severely decreased. There is increased LV wall thickness. There is severe global hypokinesis present. The septum is asynchronous. Grade 2 diastolic dysfunction is present. No left ventricle thrombus noted on this study. LVEF is 25%. Right Ventricle The right ventricle is mildly dilated. The right ventricular systolic function is normal. Atria Left atrium is mildly dilated. Right atrium is mildly dilated. There is no Doppler evidence of interatrial shunt. Aortic Valve The aortic valve is mildly thickened. There is no aortic valvular stenosis. Trace aortic regurgitation. Mitral Valve The mitral valve is No evidence of mitral valve stenosis. Mild mitral regurgitation. Mildly thickened. Tricuspid Valve Tricuspid valve is grossly normal in structure and function. Mild tricuspid regurgitation. RVSP is 20???25 mmHg. Pulmonic Valve The pulmonary valve is normal in structure. Mild pulmonic regurgitation. Great Vessels The aortic root is normal in size. IVC is normal in size and collapses >50% with inspiration. Pericardium Trivial, posterior pericardial effusion. No echo indications of tamponade. Other Information Study Quality: Fair Conclusion Mildly dilated LV with severe reduction in global LV systolic function (LVEF 25%). Grade 2 diastolic dysfunction. Asynchronous septum. Mild RV dilation with normal RV function. Biatrial dilation. Mild MR, mild TR. Trivial, posterior pericardial effusion. No echo indications of tamponade. Electronically signed by : Nurys Gtz MD 05/19/2024 13:21:22
--- NOTE | 2024-05-19 08:21 | PC.NURSE ---
Pt aided up and down from lying in bed, to side of bed and into recliner to back in bed multiple times. Pt prefers standing w/ walker. C/O restless leg pain. Concern for patient safety so staff remaining at bedside to aid w/ repositioning. Bed alarm in place. Call chen w/in reach. Awaiting orders from .
[2024-05-19] MEDS: FUROSEMIDE 40MG/4ML VIAL 40 MG IV ×2 (08:34→18:17)
[2024-05-19] MEDS: SODIUM CHLORIDE 0.9% 10ML FLUSH SYRINGE 10 ML IV (08:35)
[2024-05-19] MEDS: ROPINIROLE 1MG TABLET 2 MG PO ×2 (08:50→20:20)
--- NOTE | 2024-05-19 09:00 | PC.NURSE ---
Pt ambulated w/ a walker and standby assistance about 75 [address] in [address]. Tolerated well. Pt reports this is her baseline and that she uses a rolling walker at home.
--- NOTE | 2024-05-19 09:03 | EXP.CARD.CON ---
History of Present Illness History of Present Illness Consult date: 05/19/24 Requesting physician: Hollis Linda Consult reason: congestive heart failure Chief complaint: CHF Additional Medical History:: 1. Hypertension 2. Hyperlipidemia A. Chronic statin therapy 3. Abnormal EKG with left bundle branch block, 02/02/2023 possibly new. A. Possible a. flutter with 2:1 conduction, 01/2023 4. Heart failure with reduced ejection fraction, new on 02/02/2023 A. Echo, 01/2023, Severely reduced LV systolic function (LVEF 25%). Anterior and anteroseptal LV pandya appear akinetic. The septum appears asynchronous. Trivial pericardial effusion. B. Limited Echo, 04/2023, The left ventricle is normal in size. There is increased LV wall thickness. The anterior, anteroseptal, and septal LV pandya are nearly akinetic. LVEF is 25%. 5. Coronary artery disease A. Non-STEMI, 02/02/2023 B. JERRELL to LAD, 02/02/2023 History of present illness: Patient is 83-year-old female with past medical history of previous NSTEMI, hypertension, hyperlipidemia, congestive heart failure, she is on dual antiplatelet therapy, recent reported diagnosis of urinary tract infection presents emergency department for evaluation of weakness and strokelike symptoms. History is largely obtained by EMS although patient is able to supplement. Approximately 5 to 6 hours ago patient had global body weakness, back pain, left-sided facial droop which persisted causing him to call 911. In the field fingerstick blood glucose was nonactionable. She presents here for continued evaluation. EMS adds that she was recently diagnosed with urinary tract infection completed a course of antibiotics. No trauma. No other acute complaints at this time. In summary patient is 83-year-old female past medical history described above presents emerged part for evaluation of back pain and strokelike symptoms in the setting of reported recent urinary tract infection. Patient is hemodynamically stable upon arrival, fingerstick blood glucose nonactionable. Large-bore IVs will be obtained. Patient will undergo rapid stroke protocol. My concern for cerebrovascular accident versus aortic dissection is high based on back pain and strokelike symptoms. She is outside the window for thrombolytics. She does not take anticoagulants and does not have a history of trauma. Broad workup will be conducted with hematologic labs urinalysis EKG noncontrasted CT scan of the head CTA of the head neck chest abdomen pelvis. Urinalysis will be obtained. I had discussion with patient at bedside as to her wishes, if she needs to be intubated or undergo ACLS she wishes to pursue this. Patient is able to understand her choice, appreciate her choice and reason through her choice thereby having capacity to make this decision. Initial temperature 96 degrees given recent urinary tract infection will cover for sepsis with ceftriaxone. Mild tachycardia in the low 100s given history of CKD and previous ejection fraction in 2023 reviewed by me as 25% on [id number] bedside ultrasound shows grossly decreased ejection fraction with diffuse B-lines crystalloid resuscitation will be deferred. Patient is now requiring 3 L nasal cannula and cannot lay flat. Will start with moderate CPAP and effort to squeeze out some of the pulmonary edema. Patient has no chest pain. Initial workup reviewed by me, urinalysis interpreted and not consistent with infection. Patient has hemoglobin of 7.1 with no active evidence of bleeding she has a chronic anemia however this is a little worse than normal. It is not transfusable currently, compensated acid-base status no critical electrolyte abnormality or YAMEL. However her troponin is significant elevated at 0.49. She has a left bundle branch block with negative Sgarbossa repeat EKG shows no dynamic changes I discussed case with Dr. Hemphill who agrees. Patient is likely having an NSTEMI. CTA neck no critical stenosis, CTA head no LVO, noncontrasted CT scan was limited by motion artifact however there is concerning hypodensity in the left brainstem for which MRI was recommended. CTA chest consistent with CHF which fits her clinical picture. CTA abdomen and pelvis adnexal cystic lesion not normal for patient age for which outpatient [employer] consultation recommended. In totality patient has a likely cerebrovascular accident, NSTEMI, new cystic lesion in her pelvis, heart failure exacerbation with acute hypoxia. The case was discussed with Dr. Linda regarding management we will admit the patient to their service for continued evaluation at this time. (above as per ER physician) Patient did require BiPAP overnight. This a.m. reportedly she is much better after 2 L diuresis on 40 of Lasix. Patient is alert and oriented and knows where she is presently. She is able to move all extremities. She does complain of right-sided low back pain and restless legs stating she just wants to get up and walk. She denies any chest pain, pressure or tightness at this time. Hemoglobin initially 7.1 on admission now up to 10.5 after 1 unit transfusion overnight. Echocardiogram this morning, results pending Troponin 0.49 on admission up to 0.54 last evening BNP 9590 [facility] Disclaimer: The information contained in this section may have been updated after the patient was seen, as this information can be updated by other users. Medical History Pyelonephritis GI bleed Chronic constipation CKD (chronic kidney disease) stage 3, GFR 30-59 ml/min Coronary artery disease Ischemic cardiomyopathy ASCVD (arteriosclerotic cardiovascular disease) Systolic heart failure Cardiomyopathy CHF (congestive heart failure) HLD (hyperlipidemia) Hypertension Left bundle branch block (LBBB) determined by electrocardiography NSTEMI (non-ST elevated myocardial infarction) Surgical History History of cardiac cath S/P partial hysterectomy Family History No significant family history Social History (Updated 05/18/24 @ 18:50 by Carmen Pemberton RN) Smoking Status: Never smoker alcohol intake: never current occupational status: retired Travel in the last 8 weeks: None Have you lived/traveled outside [place] in past 30 days?: No Contact w/someone who lives/traveled outside US past 30 days?: No Exposure to someone with infectious disease in past 14 days?: No Do you have a fever (greater than 100.4 F or 38 C)?: No Have you tested positive for COVID-19: No Exposed to someone with COVID-19 in past 14 days?: No Do you have a sore throat?: No Do you have a cough?: No Do you have any weakness?: No Do you have any diarrhea?: No Are you experiencing any unusual bleeding?: No Do you have any muscle aches/pain?: No Do you have any abdominal pain?: No Are you experiencing loss of taste or smell?: No Review of Systems Review of Systems Review of systems:: pertinent systems reviewed and negative unless documented below Constitutional Constitutional: Denies headache(s) and Reports weakness ENT Ears, Nose, Mouth, and Throat: Denies headache(s) *Cardiovascular Cardiovascular: Denies chest pain and Reports dyspnea *Respiratory Respiratory: Reports dyspnea *Neurologic Neurologic: Denies abnormal speech, Denies confusion, Denies convulsions, Denies headache(s), Reports weakness and Reports other (facial droop on the left and leaning to the left) Psychiatric Psychiatric: Denies confusion Exam Data for Last 24 hours Vital signs and Labs for Last 24 Hours: Temp Pulse Resp BP Pulse Ox O2 Del Method O2 Flow Rate 99.0 F 82 16 181/102 H 97 Nasal Cannula 2 05/19/24 08:00 05/19/24 08:00 05/19/24 08:00 05/19/24 08:00 05/19/24 08:00 05/19/24 08:00 05/19/24 08:00 FiO2 30 05/19/24 01:40 Laboratory Results - last 24 hr 05/18/24 16:05: WBC 7.4, RBC 3.32 L, Hgb 7.1 L, Hct 24.1 L, MCV 72.6 L, MCH 21.4 L, MCHC 29.5 L, RDW 17.5, Plt Count 264, MPV 8.5, Neut % (Auto) 72.6, Lymph % (Auto) 11.7, [place] % (Auto) 11.2 H, Eos % (Auto) 3.3, Baso % (Auto) 0.8, Neut # (Auto) 5.3, Lymph # (Auto) 0.9, [place] # (Auto) 0.8, Eos # (Auto) 0.2, Baso # (Auto) 0.1, PT 11.1, INR 0.99, APTT 26.1, Sodium 137, Potassium 3.5, Chloride 103, Carbon Dioxide 28, Anion Gap 9.5, BUN 9, Creatinine 0.70, Estimated Creat Clear 42, Estimated GFR 80, Est GFR ( Amer) 97, Glucose 125 H, Calcium 8.0 L, Total Bilirubin 0.4, AST 27, ALT 11 L, Alkaline Phosphatase 89, Troponin I 0.49 H, NT-Pro-B Natriuret Pep 9590 H, Total Protein 6.1 L, Albumin 3.1 L, Globulin 3.0, Albumin/Globulin Ratio 1.0 L, Triglycerides 99, Cholesterol 88 L, LDL Cholesterol Direct 36.25 L, VLDL Cholesterol 20, HDL Cholesterol 31 L, Cholesterol/HDL Ratio 2.8, Plasma/Serum Alcohol < 10 05/18/24 16:15: Urine Color Yellow, Urine Appearance Clear, Urine pH 7.0, Ur Specific [place] 1.015, Urine Protein Negative, Urine Glucose (UA) Negative, Urine Ketones Negative, Urine Blood Negative, Urine Nitrate Negative, Urine Bilirubin Negative, Urine Urobilinogen 0.2, Ur Leukocyte Esterase Negative, Urine RBC Occasional, Urine WBC Occasional, Ur Squamous Epith Cells Occasional, Urine Opiates Screen Negative, Urine Methadone Screen Negative, Ur Barbituates Screen Negative, Ur Phencyclidine Scrn Negative, Ur Amphetamines Screen Negative, U Benzodiazepines Scrn Negative, Urine Cocaine Screen Negative, U Marijuana (THC) Screen Negative 05/18/24 16:17: VBG pH 7.39, VBG pCO2 40.3, VBG pO2 65.7 H, VBG HCO3 23.7, VBG Total CO2 24.9, VBG O2 Saturation 91.5 H, VBG Base Excess -1.3, VBG Lactic Acid 1.2 05/18/24 18:37: Troponin I 0.54 H, Blood Type A Positive, Antibody Screen Negative, Crossmatch (AHG) See Detail 05/19/24 01:30: Hgb 8.8 L D, Hct 28.6 L I & O for Last 24 hours: Intake & Output 05/16/24 05/17/24 05/18/24 05/19/24 11:59 11:59 11:59 11:59 Intake Total 750 / 750 Output Total 3455 / 3455 Balance -2705 / -2705 Weight 131 lb 8 oz Constitutional Constitutional: no acute distress *Routine Respiratory Exam Respiratory: Present decreased breath sounds and crackles; Absent wheezes *Routine Cardiovascular Exam Cardiovascular: Present RRR; Absent murmur, gallop or rubs *Routine Extremities Exam Extremities: Present edema *Routine Neurological Exam Neurological: Present alert, oriented X3 and CN II-XII intact Meds Home Medications and Allergies Home Medications ?Medication ?Instructions ?Recorded ?Confirmed ?Type aspirin 81 mg chewable tablet 81 mg PO DAILY 03/11/23 05/18/24 History atorvastatin 40 mg tablet 40 mg PO HS 03/11/23 05/18/24 History carvedilol 3.125 mg tablet 3.125 mg PO BID 03/11/23 05/18/24 History clopidogrel 75 mg tablet 75 mg PO DAILY 03/11/23 05/18/24 History clonazepam 1 mg tablet 1 mg PO HSP PRN Insomnia 12/16/23 05/19/24 History ropinirole 2 mg tablet 2 mg PO HS 05/19/24 05/19/24 History New Prescriptions to Start Prescriptions: Allergies Allergy/AdvReac Type Severity Reaction Status Date / Time promethazine Allergy Intermediate severe Verified 05/18/24 18:51 vomiting Penicillins Allergy Unknown Verified 05/18/24 18:51 allergy reaction Sulfa (Sulfonamide Allergy Unknown Verified 05/18/24 18:51 Antibiotics) allergy reaction triprolidine Allergy Unknown Verified 05/18/24 18:51 allergy reaction Assessment and Plan *Assessment and plan (1) Acute non-ST elevation myocardial infarction (NSTEMI): Status: Acute Category: Medical Code(s): I21.4 - Non-ST elevation (NSTEMI) myocardial infarction (2) Acute exacerbation of CHF (congestive heart failure): Status: Acute Qualifiers: Heart failure type: systolic Qualified Code(s): I50.23 - Acute on chronic systolic (congestive) heart failure Category: Medical Code(s): I50.9 - Heart failure, unspecified (3) Lesion of ovary: Status: Acute Category: Medical Code(s): N83.9 - Noninflammatory disorder of ovary, fallopian tube and broad ligament, unspecified (4) Anemia: Status: Acute Qualifiers: Anemia type: iron deficiency Iron deficiency anemia type: unspecified iron deficiency Qualified Code(s): D50.9 - Iron deficiency anemia, unspecified Category: Medical Code(s): D64.9 - Anemia, unspecified (5) Acute hypoxic respiratory failure: Status: Acute Category: Medical Code(s): J96.01 - Acute respiratory failure with hypoxia (6) Ischemic cardiomyopathy: Status: Acute Category: Medical Code(s): I25.5 - Ischemic cardiomyopathy (7) Coronary artery disease: Status: Acute Qualifiers: Associated angina: without angina Coronary Disease-Associated Artery/Lesion type: [place] artery [place] vs. transplanted heart: [place] heart Qualified Code(s): I25.10 - Atherosclerotic heart disease of [place] coronary artery without angina pectoris Category: Medical Code(s): I25.10 - Atherosclerotic heart disease of [place] coronary artery without angina pectoris (8) HTN (hypertension): Status: Acute Qualifiers: Hypertension type: unspecified Qualified Code(s): I10 - Essential (primary) hypertension Category: Medical Code(s): I10 - Essential (primary) hypertension (9) Chronic pyelonephritis: Status: Acute Category: Medical Code(s): N11.9 - Chronic tubulo-interstitial nephritis, unspecified (10) Abnormal CT scan of head: Status: Acute Category: Medical Code(s): R93.0 - Abnormal findings on diagnostic imaging of skull and head, not elsewhere classified Plan 1. Possible CVA with abnormal CT of head (hypodensity of left brainstem) -check echo with definity to look for CVA source -cardiac MRI planned today 2. acute on chronic HFrEF/EF 25% with acute hypoxic resp failure -improved with bypap and lasix -continue diuresis -BNP 9590 3. NSTEMI/CAD -likely demand ischemia related to anemia and CHF -check echo -consider outpatient workup -no plans for cath 4. Ovarian cyst on Abd/pelvic CT -defer to PCP 5. Anemia -transfused one unit blood with Hgb going from 7.1 to 10.5 -IV iron 6. Hyperlipidemia -LDL 36 -on statin 7. Hypokalemia -replace 8. Recurrent UTI/Pyelonephritis -urine negative this admission check echo Brain MRI continue diuresis consider LifeVest if EF <35%
[2024-05-19] MEDS: DEFINITY US ECHO CONTRAST 2ML INJ 2 MG IV (09:14)
[2024-05-19] MEDS: ASPIRIN 81MG CHEWABLE TABLET 81 MG PO (09:59)
[2024-05-19] MEDS: SACUBITRIL/VALSARTAN 24-26MG TABLET 1 EACH PO ×2 (09:59→20:20)
[2024-05-19] MEDS: CLOPIDOGREL 75MG TAB 75 MG PO (09:59)
--- NOTE | 2024-05-19 10:00 | PC.NURSE ---
Attempted to collect stool sample for occult blood, unable to at this time. Pt has not had a BM since arrival and states she does not feel as though she needs to.
--- NOTE | 2024-05-19 10:25 | P.PN_ITS ---
Subjective *Date: 05/19/24 *Time: 10:25 Interval history: Patient has improved overnight and is now on room air, she has been out of the bed and sat in a chair. She reports having back pain. Medical Exam Vital signs and Labs for Last 24 Hours: Vital Signs Temp Pulse Pulse Resp BP BP Pulse Ox 05/19/24 10:02 89 18 170/92 H 100 05/19/24 09:03 98.6 F 80 13 183/88 H 100 05/19/24 09:00 05/19/24 08:00 05/19/24 08:00 99.0 F 82 16 181/102 H 97 05/19/24 07:00 99.0 F 83 15 174/93 H 96 05/19/24 07:00 05/19/24 06:28 96 05/19/24 06:00 98.8 F 77 19 171/78 H 98 05/19/24 05:00 05/19/24 05:00 98.6 F 72 25 H 179/91 H 97 05/19/24 05:00 179/91 H 05/19/24 04:05 99.0 F 60 21 100 05/19/24 04:05 136/68 05/19/24 04:00 69 05/19/24 04:00 70 100 05/19/24 04:00 99.0 F 60 21 149/74 H 100 05/19/24 04:00 149/74 H 05/19/24 03:00 05/19/24 03:00 175/86 H 05/19/24 03:00 99.0 F 68 11 L 175/86 H 97 05/19/24 02:00 140/74 05/19/24 02:00 98.4 F 75 18 97 05/19/24 01:40 05/19/24 01:00 98.2 F 63 18 165/72 H 99 05/19/24 00:55 05/19/24 00:20 98.1 F 57 L 17 161/62 H 100 05/19/24 00:00 60 97 05/19/24 00:00 66 05/19/24 00:00 98.1 F 69 19 159/71 H 100 05/18/24 23:45 05/18/24 23:20 98.1 F 64 22 156/66 H 100 05/18/24 23:00 05/18/24 23:00 98.2 F 65 18 160/69 H 99 05/18/24 22:40 98.4 F 69 18 170/74 H 97 05/18/24 22:00 98.2 F 73 19 170/74 H 98 05/18/24 21:40 98.2 F 65 16 173/76 H 100 05/18/24 21:25 98.1 F 66 18 183/84 H 100 05/18/24 21:10 98.1 F 66 18 172/83 H 100 05/18/24 21:00 05/18/24 21:00 98.1 F 60 16 159/66 H 99 05/18/24 20:55 98.1 F 62 22 145/75 H 100 05/18/24 20:50 97.9 F 57 L 18 139/53 L 99 05/18/24 20:45 97.9 F 57 L 20 145/57 H 99 05/18/24 20:40 97.9 F 57 L 20 148/56 H 100 05/18/24 20:30 97.9 F 65 23 160/72 H 100 05/18/24 20:00 60 99 05/18/24 20:00 56 L 05/18/24 20:00 97.9 F 54 L 18 137/63 99 05/18/24 19:00 98.1 F 68 19 141/73 H 97 05/18/24 19:00 05/18/24 18:22 75 05/18/24 18:20 95 05/18/24 18:20 05/18/24 18:18 97.9 F 77 22 151/84 H 96 05/18/24 18:14 98.0 F 94 H 20 134/69 05/18/24 18:11 14 97 05/18/24 17:30 98.1 F 20 134/69 93 L 05/18/24 17:00 98.2 F 85 26 H 139/72 94 L 05/18/24 16:48 98.4 F 105 H 30 H 178/97 H 97 05/18/24 16:48 98.4 F 105 H 30 H 178/97 H 96 05/18/24 16:45 97 05/18/24 16:45 05/18/24 16:30 98.2 F 105 H 30 H 195/118 H 97 05/18/24 15:24 99 H 30 H 160/83 H 98 O2 Del Method O2 Flow Rate FiO2 05/19/24 10:02 Nasal Cannula 2 05/19/24 09:03 Nasal Cannula 2 05/19/24 09:00 Nasal Cannula 2 05/19/24 08:00 Nasal Cannula 2 05/19/24 08:00 Nasal Cannula 2 05/19/24 07:00 Nasal Cannula 2 05/19/24 07:00 Nasal Cannula 2 05/19/24 06:28 Nasal Cannula 2 05/19/24 06:00 Nasal Cannula 2 05/19/24 05:00 CPAP 05/19/24 05:00 Nasal Cannula 4 05/19/24 05:00 05/19/24 04:05 05/19/24 04:05 05/19/24 04:00 05/19/24 04:00 CPAP 05/19/24 04:00 CPAP 05/19/24 04:00 05/19/24 03:00 CPAP 05/19/24 03:00 05/19/24 03:00 CPAP 05/19/24 02:00 05/19/24 02:00 CPAP 05/19/24 01:40 30 05/19/24 01:00 CPAP 05/19/24 00:55 CPAP 05/19/24 00:20 05/19/24 00:00 CPAP 05/19/24 00:00 05/19/24 00:00 CPAP 05/18/24 23:45 30 05/18/24 23:20 05/18/24 23:00 Nasal Cannula 4 05/18/24 23:00 Nasal Cannula 4 05/18/24 22:40 05/18/24 22:00 Nasal Cannula 4 05/18/24 21:40 05/18/24 21:25 05/18/24 21:10 05/18/24 21:00 Nasal Cannula 4 05/18/24 21:00 Nasal Cannula 4 05/18/24 20:55 05/18/24 20:50 05/18/24 20:45 05/18/24 20:40 05/18/24 20:30 05/18/24 20:00 CPAP 05/18/24 20:00 05/18/24 20:00 BiPAP 05/18/24 19:00 BiPAP 30 05/18/24 19:00 CPAP 05/18/24 18:22 05/18/24 18:20 CPAP 30 05/18/24 18:20 30 05/18/24 18:18 BiPAP 30 05/18/24 18:14 05/18/24 18:11 CPAP 30 05/18/24 17:30 Nasal Cannula 05/18/24 17:00 Nasal Cannula 05/18/24 16:48 Nasal Cannula 05/18/24 16:48 Nasal Cannula 3 05/18/24 16:45 CPAP 30 05/18/24 16:45 30 05/18/24 16:30 Nasal Cannula 3 05/18/24 15:24 Nasal Cannula 3 Intake and Output 05/18/24 05/19/24 05/19/24 23:59 07:59 15:59 Intake Total 250 / 750 500 / 500 Output Total 1680 / 1680 1775 / 2295 520 / 2295 Balance -1430 / -930 -1275 / -1795 -520 / -1795 Intake: CBI Fluid - Amount Retained 500 / 500 [place] 500 / 500 Intake (Blood Product) Amt 250 / 250 Red Blood Cells Unit 250 / 250 [id number] Output: Output, Urine Amount 1680 / 1680 1775 / 1875 100 / 1875 Output, Urine Amount (Catheter) 420 / 420 [place] 420 / 420 Other: Number of Unmeasured Voids 0 0 0 Weight 127 lb 4 oz 131 lb 8 oz Patient Weight 05/19/24 23:59 Weight 131 lb 8 oz Laboratory Results - last 24 hr 05/18/24 16:05: WBC 7.4, RBC 3.32 L, Hgb 7.1 L, Hct 24.1 L, MCV 72.6 L, MCH 21.4 L, MCHC 29.5 L, RDW 17.5, Plt Count 264, MPV 8.5, Neut % (Auto) 72.6, Lymph % (Auto) 11.7, [place] % (Auto) 11.2 H, Eos % (Auto) 3.3, Baso % (Auto) 0.8, Neut # (Auto) 5.3, Lymph # (Auto) 0.9, [place] # (Auto) 0.8, Eos # (Auto) 0.2, Baso # (Auto) 0.1, PT 11.1, INR 0.99, APTT 26.1, Sodium 137, Potassium 3.5, Chloride 103, Carbon Dioxide 28, Anion Gap 9.5, BUN 9, Creatinine 0.70, Estimated Creat Clear 42, Estimated GFR 80, Est GFR ( Amer) 97, Glucose 125 H, Calcium 8.0 L, Total Bilirubin 0.4, AST 27, ALT 11 L, Alkaline Phosphatase 89, Troponin I 0.49 H, NT-Pro-B Natriuret Pep 9590 H, Total Protein 6.1 L, Albumin 3.1 L, Globulin 3.0, Albumin/Globulin Ratio 1.0 L, Triglycerides 99, Cholesterol 88 L, LDL Cholesterol Direct 36.25 L, VLDL Cholesterol 20, HDL Cholesterol 31 L, Cholesterol/HDL Ratio 2.8, Plasma/Serum Alcohol < 10 05/18/24 16:15: Urine Color Yellow, Urine Appearance Clear, Urine pH 7.0, Ur Specific [place] 1.015, Urine Protein Negative, Urine Glucose (UA) Negative, Urine Ketones Negative, Urine Blood Negative, Urine Nitrate Negative, Urine Bilirubin Negative, Urine Urobilinogen 0.2, Ur Leukocyte Esterase Negative, Urine RBC Occasional, Urine WBC Occasional, Ur Squamous Epith Cells Occasional, Urine Opiates Screen Negative, Urine Methadone Screen Negative, Ur Barbituates Screen Negative, Ur Phencyclidine Scrn Negative, Ur Amphetamines Screen Negative, U Benzodiazepines Scrn Negative, Urine Cocaine Screen Negative, U Marijuana (THC) Screen Negative 05/18/24 16:17: VBG pH 7.39, VBG pCO2 40.3, VBG pO2 65.7 H, VBG HCO3 23.7, VBG Total CO2 24.9, VBG O2 Saturation 91.5 H, VBG Base Excess -1.3, VBG Lactic Acid 1.2 05/18/24 18:37: Troponin I 0.54 H, Blood Type A Positive, Antibody Screen Negative, Crossmatch (AHG) See Detail 05/19/24 01:30: Hgb 8.8 L D, Hct 28.6 L I & O for Labs for Last 24 Hours: Intake & Output 05/16/24 05/17/24 05/18/24 05/19/24 23:59 23:59 23:59 23:59 Intake Total 250 / 750 500 / 500 Output Total 1680 / 1680 2295 / 2295 Balance -1430 / -930 -1795 / -1795 Weight 127 lb 4 oz 131 lb 8 oz Constitutional: Present no acute distress Respiratory: Present normal respiratory effort Cardiac: Present Reg Rate and Rhythm GI: Present normal bowel sounds; Absent tenderness Extremities: Present normal inspection and full ROM Skin: Present intact; Absent erythema Neuro: Present moves all extremities Assessment and Plan *Assessment and plan (1) Acute CVA (cerebrovascular accident): Status: Acute Category: Medical Code(s): I63.9 - Cerebral infarction, unspecified (2) Acute non-ST elevation myocardial infarction (NSTEMI): Status: Acute Category: Medical Code(s): I21.4 - Non-ST elevation (NSTEMI) myocardial infarction (3) Acute exacerbation of CHF (congestive heart failure): Status: Acute Category: Medical Code(s): I50.9 - Heart failure, unspecified (4) Anemia: Status: Acute Category: Medical Code(s): D64.9 - Anemia, unspecified (5) Lesion of ovary: Status: Acute Category: Medical Code(s): N83.9 - Noninflammatory disorder of ovary, fallopian tube and broad ligament, unspecified (6) CKD (chronic kidney disease) stage 3, GFR 30-59 ml/min: Status: Acute Category: Medical Code(s): N18.30 - Chronic kidney disease, stage 3 unspecified (7) Ischemic cardiomyopathy: Status: Acute Category: Medical Code(s): I25.5 - Ischemic cardiomyopathy (8) Coronary artery disease: Status: Acute Qualifiers: Coronary Disease-Associated Artery/Lesion type: [place] artery [place] vs. transplanted heart: [place] heart Associated angina: without angina Qualified Code(s): I25.10 - Atherosclerotic heart disease of [place] coronary artery without angina pectoris Category: Medical Code(s): I25.10 - Atherosclerotic heart disease of [place] coronary artery without angina pectoris (9) Chronic HFrEF (heart failure with reduced ejection fraction): Status: Acute Category: Medical Code(s): I50.22 - Chronic systolic (congestive) heart failure (10) HTN (hypertension): Status: Acute Qualifiers: Hypertension type: unspecified Qualified Code(s): I10 - Essential (primary) hypertension Category: Medical Code(s): I10 - Essential (primary) hypertension (11) Acute hypoxic respiratory failure: Status: Acute Category: Medical Code(s): J96.01 - Acute respiratory failure with hypoxia Plan Plan to check MRI of brain today, OK to transfer out of ICU to Med/surg with tele. Am labs pending. Echo pending.
[2024-05-19] MEDS: TRAMADOL 50MG TABLET 50 MG PO ×2 (10:35→13:55)
[2024-05-19 10:42] LABS: Basophils # 0.1 K/mm3 (0-0.2); Basophils % 0.5 % (0.1-2.0); Eosinophils # 0.2 K/mm3 (0.0-0.4); Eosinophils % 1.5 % (0.1-12.0); Hematocrit 34.7 % (37.0-47.0); Lymphocytes # 0.9 K/mm3 (0.7-4.5); Lymphocytes % 7.7 % (10-50); Mean Corpuscular HGB Conc 30.5 g/dL (31.8-35.4); Mean Corpuscular Hemoglobin 22.5 pg (27.0-31.2); Mean Corpuscular Volume 73.5 fl (81-99); Mean Platelet Volume 8.7 fl (7.4-10.4); Monocytes # 1.1 K/mm3 (0.1-1.0); Monocytes % 10.2 % (1.7-9.3); Neutrophils # 8.9 K/mm3 (1.8-7.8); Neutrophils % 79.7 % (37.0-80.0); Platelet Count 308 K/mm3 (142-424); Red Blood Count 4.72 M/mm3 (4.20-5.40); Red Cell Distribution Width 18.3 % (11.5-17.5); White Blood Count 11.1 K/mm3 (4.8-10.8)
[2024-05-19 10:45] LABS: Hemoglobin 10.5 g/dL (12.2-16.2)
[2024-05-19 11:01] LABS: Chloride 100 mmol/L (98-107); Potassium 3.3 mmoL/L (3.5-5.1); Sodium 140 mmol/L (136-145)
[2024-05-19 11:04] LABS: Alanine Aminotransferase 13 U/L (12-78); Albumin/Globulin Ratio 1.1 (1.1-1.8); Alkaline Phosphatase 111 U/L (38-126); Anion Gap 14.3 mEq/L (5-15); Aspartate Amino Transferase 43 U/L (14-36); Bilirubin,Total 1.2 mg/dl (0.2-1.3); Blood Urea Nitrogen 11 mg/dl (7-17); Calcium 8.7 mg/dl (8.4-10.2); Carbon Dioxide 29 mmol/L (22.0-30.0); Creatinine Clearance Estimated 40 mL/min (50-200); Estimated Glomerular Filt Rate 60 ml/min (>60); GFR (African American) 72 ML/MIN (>60); Globulin 3.6 g/dL (1.3-3.2); Glucose 111 mg/dl (74-100); Total Protein,Serum 7.6 g/dl (6.3-8.2)
--- NOTE | 2024-05-19 11:10 | MR_ITS ---
FINAL REPORT TECHNIQUE: Multiplanar and multisequence imaging of the brain was obtained before and after contrast injection. CLINICAL HISTORY: Weakness, abnormal CT, eval for CVA FINDINGS: Atrophy is noted with associated ex vacuo dilatation of the ventricles. There is no mass effect or midline shift. Moderate to severe foci of periventricular and subcortical white matter are nonspecific. No hydrocephalus. Dilated perivascular spaces are seen in the basal ganglia bilaterally. A T2 abnormality is seen in the brainstem. The cerebellum is without acute abnormality. There are no areas of restricted diffusion on diffusion weighted images to suggest acute infarct. Soft tissues are without acute abnormality. Post contrast images reveal no pathologic contrast enhancement. IMPRESSION: No acute abnormality. Specifically, no acute ischemia. Atrophy and probable changes of chronic small vessel ischemia. No abnormal contrast enhancement. Reviewed, Interpreted and Dictated by Celia Yeager MD Transcribed by Sara Torres Authenticated and . [facility]
--- NOTE | 2024-05-19 11:46 | HMH.PTEV ---
Physical Therapy Evaluation Rehab PT IP Evaluation Start: 05/18/24 19:13 Freq: ONCE Status: Active Protocol: Document 05/19/24 09:50 LIBERTAD (Rec: 05/19/24 11:46 PHOJAKE [id number]) Subjective/History History History 83-year-old female with past medical history of previous NSTEMI, hypertension, hyperlipidemia, congestive heart failure, she is on dual antiplatelet therapy, recent reported diagnosis of urinary tract infection presents emergency department for evaluation of weakness and strokelike symptoms. History is largely obtained by EMS although patient is able to supplement. Approximately 5 to 6 hours ago patient had global body weakness, back pain, left-sided facial droop which persisted causing him to call 911. In the field fingerstick blood glucose was nonactionable. She presents here for continued evaluation. EMS adds that she was recently diagnosed with urinary tract infection completed a course of antibiotics. No trauma. No other acute complaints at this time. She reports she lives with her and they have a sr. director product management that assists them , 1 TITO the home, and she is generally independent with all mobility using a RW at baseline. Subjective Subjective Pt reports general feeling of weakness and R side back pain, but she readily agrees to mobility assessment. New diagnosis of cancer in past 12 No months? [facility] How much help from another person do you currently need... Turning from your back to your side None while in a flat bed without using bedrails? Moving from lying on back to sitting on None the side of a flat bed without using bedrails? Moving to and from a bed to a chair ( None including a wheelchair)? Standing up from a chair using your arms None ? (e.g., wheelchair, bedside chair) Walking in hospital room? None Climbing 3-5 steps with a railing? A little Mobility Score 23 Mobility Level [facility] Mobility Calculator Mobility 7 Walk 25 feet or more Rehab PT IP Eval Objective Appearance Patient Behavior Appropriate Patient Orientation Person,Place,Time Difficulty following instructions none Speech Pattern Clear Ambulation Patient Able to Ambulate Yes Ambulation Observation IP General Gait Pattern Observation No Deviations/Normal Ambulation Distance (feet) 50 Ambulation Assistive Device Rolling Walker Ambulation Ability Independent Balance Ability to Arise Able, uses arms to help Sitting Balance Steady, safe Standing Balance Steady, wide stance Dynamic Sitting Balance Ability Fair Dynamic Standing Balance Ability Fair Transfers Bed Transfer Ability Independent Chair Transfer Ability Independent Sit to Stand Bed Transfer Ability Independent Sit to Stand Chair Transfer Ability Independent Rehab PT IP prob,goals,plan Problems Date of Evaluation: 05/19/24 Discharge Plan PT Discharge Plan Pt has equal strength in B UE and LE with MMT at this time and is appropriate to return home once medically stable for d/c. Recommend home health therapy after return home. No current acute inpatient therapy needs at this time. Eval Complexity Eval Charge Codes 71072 - High Complexity PHYSICIAN CERTIFICATION: I certify the specified therapy services for Barbara Najera are required, authorized, and reviewed every 30 days.
--- NOTE | 2024-05-19 12:31 | PC.NURSE ---
Pt down to MRI @ this time by wheelchair w/ staff.
[2024-05-19] MEDS: SODIUM CHLORIDE 0.9% 10ML SYR (RAD ONLY) 10 ML IV (13:03)
[2024-05-19] MEDS: GADOTERIDOL INJ 10ML SYRINGE 10 ML IV (13:03)
--- NOTE | 2024-05-19 13:13 | PC.NURSE ---
PT DOWN AT MRI, UNABLE TO DO Q2 NURSES ASSESSMENT. PREVIOUSLY CHARTED NOT DONE
--- NOTE | 2024-05-19 13:16 | PC.NURSE ---
Pt back to floor from MRI
--- NOTE | 2024-05-19 13:37 | PC.NURSE ---
INDWELLING CATHETER D/C'd BY ARLET BELLA RN AT 1240.
[2024-05-19] MEDS: ONDANSETRON 4MG/2ML VIAL 4 MG IV (15:00)
--- NOTE | 2024-05-19 16:09 | PC.NURSE ---
pt transferred to med surg unit via icu staff.
[2024-05-19] MEDS: POTASSIUM CHLORIDE 20MEQ TAB 20 MEQ PO (18:17)
[2024-05-19] MEDS: ATORVASTATIN 40MG TABLET 40 MG PO (20:20)
[2024-05-20] VITALS: PULSE 81
[2024-05-20] MEDS: OXYCODONE 5MG IMMEDIATE RELEASE TABLET 5 MG PO ×2 (01:47→06:11)
[2024-05-20 02:35] VITALS: BP 127/64; PULSE 73; RESP 16; TEMP 36.4; O2SAT 96
[2024-05-20 04:00] VITALS: BP 142/68; PULSE 73; PULSE 80; RESP 18; TEMP 36.9; O2SAT 97; BMI 23.3
--- NOTE | 2024-05-20 05:49 | PC.NURSE ---
V/s, ox4, Perrla. Pt was up to the bathroom with 1 assist with walker with no issues. Pt to go home with lifevest. Pt c/o pain, treated per APR.
[2024-05-20 06:52] LABS: Basophils % 0.4 % (0.1-2.0); Eosinophils # 0.2 K/mm3 (0.0-0.4); Eosinophils % 2.1 % (0.1-12.0); Hematocrit 35.9 % (37.0-47.0); Lymphocytes # 1.5 K/mm3 (0.7-4.5); Lymphocytes % 15.1 % (10-50); Mean Corpuscular HGB Conc 30.6 g/dL (31.8-35.4); Mean Corpuscular Hemoglobin 22.4 pg (27.0-31.2); Mean Corpuscular Volume 73.1 fl (81-99); Mean Platelet Volume 8.9 fl (7.4-10.4); Monocytes % 9.5 % (1.7-9.3); Neutrophils # 7.3 K/mm3 (1.8-7.8); Neutrophils % 72.5 % (37.0-80.0); Platelet Count 366 K/mm3 (142-424); Red Blood Count 4.91 M/mm3 (4.20-5.40); Red Cell Distribution Width 18.8 % (11.5-17.5); White Blood Count 10.1 K/mm3 (4.8-10.8)
[2024-05-20 07:03] LABS: Anion Gap 13.4 mEq/L (5-15); Blood Urea Nitrogen 20 mg/dl (7-17); Calcium 8.8 mg/dl (8.4-10.2); Carbon Dioxide 35 mmol/L (22.0-30.0); Chloride 95 mmol/L (98-107); Creatinine Clearance Estimated 36 mL/min (50-200); Estimated Glomerular Filt Rate 47 ml/min (>60); GFR (African American) 57 ML/MIN (>60); Glucose 124 mg/dl (74-100); Potassium 3.4 mmoL/L (3.5-5.1); Sodium 140 mmol/L (136-145)
[2024-05-20 08:00] VITALS: BP 99/45; PULSE 80; PULSE 85; RESP 17; TEMP 36.8; O2SAT 93
--- NOTE | 2024-05-20 08:28 | P.PN_ITS ---
Subjective *Date: 05/20/24 *Time: 08:54 Interval history: Patient is feeling better this am. She is still having a lot of right lower back pain. She is able to get up and walk with her walker and assistance. She ate a lot of her breakfast and slept off and on last night. Medical Exam Vital signs and Labs for Last 24 Hours: Vital Signs Temp Pulse Pulse Resp BP BP Pulse Ox 05/20/24 06:29 05/20/24 05:00 05/20/24 04:00 98.5 F 73 18 142/68 H 97 05/20/24 04:00 80 05/20/24 03:00 05/20/24 02:35 97.6 F 73 16 127/64 96 05/20/24 01:00 05/20/24 00:00 81 05/19/24 23:00 05/19/24 21:00 05/19/24 20:00 90 05/19/24 20:00 99.4 F 82 16 131/60 97 05/19/24 20:00 05/19/24 18:56 05/19/24 17:00 05/19/24 16:00 97.7 F 82 17 134/73 98 05/19/24 15:00 05/19/24 12:00 98.2 F 71 24 141/57 H 94 L 05/19/24 12:00 68 05/19/24 11:00 99.0 F 78 16 168/89 H 95 05/19/24 11:00 05/19/24 10:02 89 18 170/92 H 100 05/19/24 09:03 98.6 F 80 13 183/88 H 100 05/19/24 09:00 O2 Del Method O2 Flow Rate 05/20/24 06:29 Room Air 05/20/24 05:00 Room Air 05/20/24 04:00 Room Air 05/20/24 04:00 05/20/24 03:00 Room Air 05/20/24 02:35 Room Air 05/20/24 01:00 Room Air 05/20/24 00:00 05/19/24 23:00 Room Air 05/19/24 21:00 Room Air 05/19/24 20:00 05/19/24 20:00 Room Air 05/19/24 20:00 Room Air 05/19/24 18:56 Room Air 05/19/24 17:00 Room Air 05/19/24 16:00 Room Air 05/19/24 15:00 Room Air 05/19/24 12:00 Room Air 05/19/24 12:00 05/19/24 11:00 Room Air 05/19/24 11:00 Room Air 05/19/24 10:02 Nasal Cannula 2 05/19/24 09:03 Nasal Cannula 2 05/19/24 09:00 Nasal Cannula 2 Intake and Output 05/19/24 05/20/24 05/20/24 19:59 03:59 11:59 Intake Total 360 / 360 Output Total 0 / 0 0 / 0 Balance 360 / 360 0 / 360 Intake: Intake, Oral Amount 360 / 360 Output: Output, Urine Amount 0 / 0 0 / 0 Other: Number of Voids 1 Number of Unmeasured Voids 1 1 Weight 131 lb 7.986 oz Patient Weight 05/20/24 11:59 Weight 131 lb 7.986 oz Laboratory Results - last 24 hr 05/18/24 18:37: Crossmatch (AHG) See Detail 05/19/24 10:35: WBC 11.1 H D, RBC 4.72 D, Hgb 10.5 L D, Hct 34.7 L, MCV 73.5 L, MCH 22.5 L, MCHC 30.5 L, RDW 18.3 H, Plt Count 308, MPV 8.7, Neut % (Auto) 79.7, Lymph % (Auto) 7.7 L, S[place] % (Auto) 10.2 H, Eos % (Auto) 1.5, Baso % (Auto) 0.5, Neut # (Auto) 8.9 H, Lymph # (Auto) 0.9, [place] # (Auto) 1.1 H, Eos # (Auto) 0.2, Baso # (Auto) 0.1, Sodium 140, Potassium 3.3 L, Chloride 100, Carbon Dioxide 29, Anion Gap 14.3, BUN 11, Creatinine 0.90 D, Estimated Creat Clear 40, Estimated GFR 60, Est GFR ( Amer) 72 D, Glucose 111 H, Calcium 8.7, Total Bilirubin 1.2, AST 43 H D, ALT 13, Alkaline Phosphatase 111, Total Protein 7.6, Albumin 4.0 D, Globulin 3.6 H, Albumin/Globulin Ratio 1.1 05/20/24 06:11: WBC 10.1, RBC 4.91, Hgb 11.0 L, Hct 35.9 L, MCV 73.1 L, MCH 22.4 L, MCHC 30.6 L, RDW 18.8 H, Plt Count 366, MPV 8.9, Neut % (Auto) 72.5, Lymph % (Auto) 15.1, [place] % (Auto) 9.5 H, Eos % (Auto) 2.1, Baso % (Auto) 0.4, Neut # (Auto) 7.3, Lymph # (Auto) 1.5, S[place]ent # (Auto) 1.0, Eos # (Auto) 0.2, Baso # (Auto) 0.0, Sodium 140, Potassium 3.4 L, Chloride 95 L, Carbon Dioxide 35 H, Anion Gap 13.4, BUN 20 H D, Creatinine 1.10 H D, Estimated Creat Clear 36, Estimated GFR 47 L, Est GFR ( Amer) 57 L D, Glucose 124 H, Calcium 8.8 I & O for Labs for Last 24 Hours: Intake & Output 05/17/24 05/18/24 05/19/24 05/20/24 11:59 11:59 11:59 11:59 Intake Total 750 / 750 360 / 360 Output Total 4430 / 4430 0 / 0 Balance -3680 / -3680 360 / 360 Weight 131 lb 8 oz 131 lb 7.986 oz Microbiology Reports for the Last 24 Hours: Microbiology 05/18/24 16:21 Blood Blood Culture - Preliminary NO GROWTH AFTER 24 HOURS 05/18/24 16:05 Blood Blood Culture - Preliminary NO GROWTH AFTER 24 HOURS Constitutional: Present no acute distress Respiratory: Present normal respiratory effort Cardiac: Present Reg Rate and Rhythm GI: Present normal bowel sounds; Absent tenderness, guarding or rebound Extremities: Present normal inspection and full ROM Skin: Present intact; Absent erythema Neuro: Present moves all extremities Assessment and Plan *Assessment and plan (1) TIA (transient ischemic attack): Status: Acute Category: Medical Code(s): G45.9 - Transient cerebral ischemic attack, unspecified (2) Acute non-ST elevation myocardial infarction (NSTEMI): Status: Acute Category: Medical Code(s): I21.4 - Non-ST elevation (NSTEMI) myocardial infarction (3) Acute exacerbation of CHF (congestive heart failure): Status: Acute Qualifiers: Heart failure type: systolic Qualified Code(s): I50.23 - Acute on chronic systolic (congestive) heart failure Category: Medical Code(s): I50.9 - Heart failure, unspecified (4) Anemia: Status: Acute Qualifiers: Anemia type: iron deficiency Iron deficiency anemia type: unspecified iron deficiency Qualified Code(s): D50.9 - Iron deficiency anemia, unspecified Category: Medical Code(s): D64.9 - Anemia, unspecified (5) Lesion of ovary: Status: Acute Category: Medical Code(s): N83.9 - Noninflammatory disorder of ovary, fallopian tube and broad ligament, unspecified (6) CKD (chronic kidney disease) stage 3, GFR 30-59 ml/min: Status: Acute Category: Medical Code(s): N18.30 - Chronic kidney disease, stage 3 unspecified (7) Ischemic cardiomyopathy: Status: Acute Category: Medical Code(s): I25.5 - Ischemic cardiomyopathy (8) Coronary artery disease: Status: Acute Qualifiers: Associated angina: without angina Coronary Disease-Associated Artery/Lesion type: [place] artery [place] vs. transplanted heart: [place] heart Qualified Code(s): I25.10 - Atherosclerotic heart disease of [place] coronary artery without angina pectoris Category: Medical Code(s): I25.10 - Atherosclerotic heart disease of [place] coronary artery without angina pectoris (9) Chronic HFrEF (heart failure with reduced ejection fraction): Status: Acute Category: Medical Code(s): I50.22 - Chronic systolic (congestive) heart failure (10) HTN (hypertension): Status: Acute Qualifiers: Hypertension type: unspecified Qualified Code(s): I10 - Essential (primary) hypertension Category: Medical Code(s): I10 - Essential (primary) hypertension (11) Acute hypoxic respiratory failure: Status: Acute Category: Medical Code(s): J96.01 - Acute respiratory failure with hypoxia (12) Back pain: Status: Acute Category: Medical Code(s): M54.9 - Dorsalgia, unspecified (13) Adnexal mass: Status: Acute Category: Medical Code(s): N94.89 - Other specified conditions associated with female genital organs and menstrual cycle (14) Awa UTI: Status: Acute Category: Medical Code(s): B37.49 - Other urogenital candidiasis Plan MRI was negative for CVA. She has likely had a TIA. Echo shows EF is at baseline. She is improving but is c/o back pain. Her abdominal/pelvic CT did show an adnexal mass and radiology recommended f/u. Dr. Linda entry - Saw patient, agree with above note. She has improved. MRI brain showed no CVA, outpatient urine culture showed candidal UTI. Patient does not want a LifeVest or any changes to her cardiac meds. OK to discharge home with home health and outpatient f/u with [facility] COLLECTOR and Dr. Justice.
[2024-05-20] MEDS: ACETAMINOPHEN 1,000MG/100ML VIAL 1000 MG IV (09:20)
[2024-05-20] MEDS: CLOPIDOGREL 75MG TAB 75 MG PO (09:43)
[2024-05-20] MEDS: SACUBITRIL/VALSARTAN 24-26MG TABLET 1 EACH PO (09:43)
[2024-05-20] MEDS: FLUCONAZOLE 200MG TABLET 200 MG PO (09:43)
[2024-05-20] MEDS: PANTOPRAZOLE 40MG TABLET 40 MG PO (09:43)
[2024-05-20] MEDS: POTASSIUM CHLORIDE 20MEQ TAB 20 MEQ PO (09:44)
[2024-05-20] MEDS: ASPIRIN 81MG CHEWABLE TABLET 81 MG PO (09:44)
--- NOTE | 2024-05-20 11:18 | CARE MANAGER ---
Spoke with patient and patient's daughter regarding home health services once patient is medically stable to go home. Patient wanted me to talk with her daughter so i called her daughter and daughter stated that she thinks it would help her mother out with home health services. Faxed patients info to [facility] and they are able to accept patient. Cathie Guerrero
[2024-05-20 12:00] VITALS: PULSE 90
--- NOTE | 2024-05-20 12:24 | EXP.CARD.PN ---
Subjective Subjective Date: 05/20/24 Time: 12:25 Principal diagnosis: CHF Interval history: 83 yo WF in bed in NAD. Breathing better and ready to go home. Poor candidate for LifeVest as she will not wear it. Exam Data for Last 24 hours Vital signs and Labs for Last 24 Hours: Temp Pulse Resp BP Pulse Ox O2 Del Method O2 Flow Rate 98.2 F 85 17 99/45 L 93 L Room Air 2 05/20/24 08:00 05/20/24 08:00 05/20/24 08:00 05/20/24 08:00 05/20/24 08:00 05/20/24 11:00 05/19/24 10:02 FiO2 30 05/19/24 01:40 Laboratory Results - last 24 hr 05/20/24 06:11: WBC 10.1, RBC 4.91, Hgb 11.0 L, Hct 35.9 L, MCV 73.1 L, MCH 22.4 L, MCHC 30.6 L, RDW 18.8 H, Plt Count 366, MPV 8.9, Neut % (Auto) 72.5, Lymph % (Auto) 15.1, Wilkinson % (Auto) 9.5 H, Eos % (Auto) 2.1, Baso % (Auto) 0.4, Neut # (Auto) 7.3, Lymph # (Auto) 1.5, [place] # (Auto) 1.0, Eos # (Auto) 0.2, Baso # (Auto) 0.0, Sodium 140, Potassium 3.4 L, Chloride 95 L, Carbon Dioxide 35 H, Anion Gap 13.4, BUN 20 H D, Creatinine 1.10 H D, Estimated Creat Clear 36, Estimated GFR 47 L, Est GFR ( Amer) 57 L D, Glucose 124 H, Calcium 8.8 I & O for Last 24 hours: Intake & Output 05/18/24 05/19/24 05/20/24 05/21/24 11:59 11:59 11:59 11:59 Intake Total 750 / 750 800 / 800 Output Total 4430 / 4430 0 / 0 Balance -3680 / -3680 800 / 800 Weight 131 lb 8 oz 131 lb 7.986 oz Microbiology Reports for the Last 24 Hours: Microbiology 05/18/24 19:27 Anus CRE Surveillance Culture - Final 05/18/24 16:21 Blood Blood Culture - Preliminary NO GROWTH AFTER 24 HOURS 05/18/24 16:05 Blood Blood Culture - Preliminary NO GROWTH AFTER 24 HOURS Constitutional Constitutional: no acute distress *Routine Respiratory Exam Respiratory: Present CTA bilaterally *Routine Cardiovascular Exam Cardiovascular: Present RRR Progress Note: A&P Assessment and plan (1) TIA (transient ischemic attack): Status: Acute (2) Acute non-ST elevation myocardial infarction (NSTEMI): Status: Acute (3) Acute exacerbation of CHF (congestive heart failure): Status: Acute (4) Anemia: Status: Acute (5) Lesion of ovary: Status: Acute (6) CKD (chronic kidney disease) stage 3, GFR 30-59 ml/min: Status: Acute (7) Ischemic cardiomyopathy: Status: Acute (8) Coronary artery disease: Status: Acute (9) Chronic HFrEF (heart failure with reduced ejection fraction): Status: Acute (10) HTN (hypertension): Status: Acute (11) Acute hypoxic respiratory failure: Status: Acute (12) Back pain: Status: Acute (13) Adnexal mass: Status: Acute (14) Awa UTI: Status: Acute Assessment and Plan Assessment and Plan for All Diagnoses:: 1. Possible CVA with abnormal CT of head (hypodensity of left brainstem) -Echo EF still 25% with no evidence of LV thrombus -MRI negative for acute event 2. acute on chronic HFrEF/EF 25% with acute hypoxic resp failure -improved with bypap and lasix -continue diuresis -BNP 9590 3. NSTEMI/CAD -likely demand ischemia related to anemia and CHF -Echo EF 25% (chronic) -consider outpatient workup -no plans for cath 4. Ovarian cyst on Abd/pelvic CT -defer to PCP 5. Anemia -transfused one unit blood with Hgb going from 7.1 to 10.5 6. Hyperlipidemia -LDL 36 -on statin 7. Hypokalemia -replace 8. Recurrent UTI/Pyelonephritis -urine negative this admission Clinically improved Pt declines change in meds. Therefore continue coreg, atorvastatin and aspirin. Will revisit at follow up in office. Would consider adding entresto and diuretics to try and prevent recurrent CHF admissions. Follow up in our office in 2 wks.
--- NOTE | 2024-05-23 12:43 | SW/DCPLANNER ---
Spoke with patients healthcare network consultant. fisheries management biologist stated that patient is doing horrible. Patient has been in bed since she came home from the hospital.fisheries management biologist stated that patient is still in alot of pain in her back. fisheries management biologist stated that they are aware of patients appointments and was able to get her new medicine picked up. fisheries management biologist stated that they have no concerns or questions at this time. Cathie Guerrero
--- NOTE | 2024-05-23 16:06 | P.DS_ITS ---
General Admission date:: 05/18/24 Discharge date: 04/22/24 HPI HPI HPI: Patient is 83-year-old female with past medical history of previous NSTEMI, hypertension, hyperlipidemia, congestive heart failure, she is on dual antiplatelet therapy, recent reported diagnosis of urinary tract infection presents emergency department for evaluation of weakness and strokelike symptoms. History is largely obtained by EMS although patient is able to supplement. Approximately 5 to 6 hours ago patient had global body weakness, back pain, left-sided facial droop which persisted causing him to call 911. In the field fingerstick blood glucose was nonactionable. She presents here for continued evaluation. EMS adds that she was recently diagnosed with urinary tract infection completed a course of antibiotics. No trauma. No other acute complaints at this time. In summary patient is 83-year-old female past medical history described above presents emerged part for evaluation of back pain and strokelike symptoms in the setting of reported recent urinary tract infection. Patient is hemodynamically stable upon arrival, fingerstick blood glucose nonactionable. Large-bore IVs will be obtained. Patient will undergo rapid stroke protocol. My concern for cerebrovascular accident versus aortic dissection is high based on back pain and strokelike symptoms. She is outside the window for thrombolytics. She does not take anticoagulants and does not have a history of trauma. Broad workup will be conducted with hematologic labs urinalysis EKG noncontrasted CT scan of the head CTA of the head neck chest abdomen pelvis. Urinalysis will be obtained. I had discussion with patient at bedside as to her wishes, if she needs to be intubated or undergo ACLS she wishes to pursue this. Patient is able to understand her choice, appreciate her choice and reason through her choice thereby having capacity to make this decision. Initial temperature 96 degrees given recent urinary tract infection will cover for sepsis with ceftriaxone. Mild tachycardia in the low 100s given history of CKD and previous ejection fraction in 2023 reviewed by me as 25% on [id number] bedside ultrasound shows grossly decreased ejection fraction with diffuse B-lines crystalloid resuscitation will be deferred. Patient is now requiring 3 L nasal cannula and cannot lay flat. Will start with moderate CPAP and effort to squeeze out some of the pulmonary edema. Patient has no chest pain. Initial workup reviewed by me, urinalysis interpreted and not consistent with infection. Patient has hemoglobin of 7.1 with no active evidence of bleeding she has a chronic anemia however this is a little worse than normal. It is not transfusable currently, compensated acid-base status no critical electrolyte abnormality or YAMEL. Howeve r her troponin is significant elevated at 0.49. She has a left bundle branch block with negative Sgarbossa repeat EKG shows no dynamic changes I discussed case with Dr. Hemphill who agrees. Patient is likely having an NSTEMI. CTA neck no critical stenosis, CTA head no LVO, noncontrasted CT scan was limited by motion artifact however there is concerning hypodensity in the left brainstem for which MRI was recommended. CTA chest consistent with CHF which fits her clinical picture. CTA abdomen and pelvis adnexal cystic lesion not normal for patient age for which outpatient [employer] consultation recommended. In totality patient has a likely cerebrovascular accident, NSTEMI, new cystic lesion in her pelvis, heart failure exacerbation with acute hypoxia. The case was discussed with Dr. Linda regarding management we will admit the patient to their service for continued evaluation at this time. (above as per ER physician) Hospital Course Hospital Course Hospital Course: On admission patient was noted to be constipated and have an adnexal cystic lesion on the pelvic/abdominal CTA. She was initially placed on BiPAP for shortness of breath which improved. Hemoglobin was noted to be low. She was transfused with 1 unit of packed red blood cells. Baseline left ventricular ejection fraction was noted to be 25%. Plan was to diurese her and start her on Protonix every 12 hours. She was seen by cardiology who noted acute non-ST elevation myocardial infarction and heart failure. Plan was to check her echo. She was noted to have improved with by BiPAP and diuresis the following day.. BNP was 9590. Her NSTEMI was felt to be a demand ischemia related to her anemia and CHF. Following day after admission she was on room air, was out of bed, was able to walk with her walker and sitting in a chair. Her biggest complaint was her back pain. Cardiology did follow patient during this admission. There were no plans for cardiac cath. Patient was noted to decline any medicine changes. Therefore Coreg, atorvastatin and aspirin were continued. She was to follow-up with card iology in 2 weeks at which time they would consider adding Entresto and diuretics to try and prevent recurrent CHF admissions. MRI was noted to be negative for CVA and she was felt to have had a TIA. Echo shows ejection fraction at baseline. She continued to complain of back pain. Noted was the adnexal mass and radiology recommended follow-up. Urine culture showed Awa urinary tract infection. Patient did not want a LifeVest or any changes in her cardiac meds. She was discharged home with home health and outpatient follow-up with [employer] and Dr. Justice. Exam Data for Last 24 hours Vital signs and Labs for Last 24 Hours: Temp Pulse Resp BP Pulse Ox O2 Del Method O2 Flow Rate 98.2 F 90 17 99/45 L 93 L Room Air 2 05/20/24 08:00 05/20/24 12:00 05/20/24 08:00 05/20/24 08:00 05/20/24 08:00 05/20/24 11:00 05/19/24 10:02 FiO2 30 05/19/24 01:40 Microbiology Reports for the Last 24 Hours: Microbiology 05/18/24 16:21 Blood Blood Culture - Preliminary NO GROWTH AFTER 4 DAYS 05/18/24 16:05 Blood Blood Culture - Preliminary NO GROWTH AFTER 4 DAYS Narrative: PE at [facility] on day of discharge Constitutional: Present no acute distress Respiratory: Present normal respiratory effort Cardiac: Present Reg Rate and Rhythm GI: Present normal bowel sounds; Absent tenderness, guarding or rebound Extremities: Present normal inspection and full ROM Skin: Present intact; Absent erythema Neuro: Present moves all extremities Results Data Completed and Pending Completed studies during hospitalization [Text1]: 05/18/2024 Abd/Pelvis CTA IMPRESSION: No evidence of abdominal aortic aneurysm or dissection. No significant stenosis. Constipation. 46 mm right adnexal cystic lesion is not normal in a patient of this age. Consider [employer] consultation to determine follow-up. 05/18/2024 Chest CTA IMPRESSION: No evidence of thoracic aneurysm or dissection. No pulmonary embolism. Findings most consistent with CHF. Otherwise, no acute abnormality. 05/18/2024 head CTA IMPRESSION: Exam is limited by motion and positioning. No evidence of large vessel occlusion or AVM. 05/18/[address] IMPRESSION: Motion artifact limits the exam. No hemorrhage. Artifact versus hypodensity in the left brainstem. Consider MRI when patient is able to tolerate it. Other chronic findings. 05/18/2024 neck CTA IMPRESSION: Exam is limited by motion and patient positioning. 30% stenosis of the right internal carotid artery and 40% stenosis of the left internal carotid artery. Patent vertebral arteries. 05/19/2024ECHO Conclusion Mildly dilated LV with severe reduction in global LV systolic function (LVEF 25%). Grade 2 diastolic dysfunction. Asynchronous septum. Mild RV dilation with normal RV function. Biatrial dilation. Mild MR, mild TR. Trivial, posterior pericardial effusion. No echo indications of tamponade. 05/19/2024 Brain MRI IMPRESSION: No acute abnormality. Specifically, no acute ischemia. Atrophy and probable changes of chronic small vessel ischemia. No abnormal contrast enhancement. Labs on day of discharge: Preliminary micro results at discharge 05/18/24 16:21 Blood Culture - Preliminary Blood NO GROWTH AFTER 4 DAYS 05/18/24 16:05 Blood Culture - Preliminary Blood NO GROWTH AFTER 4 DAYS DS: Diagnosis Discharge Diagnosis (1) TIA (transient ischemic attack): Status: Acute Code(s): G45.9 - Transient cerebral ischemic attack, unspecified (2) Acute non-ST elevation myocardial infarction (NSTEMI): Status: Acute Code(s): I21.4 - Non-ST elevation (NSTEMI) myocardial infarction (3) Acute exacerbation of CHF (congestive heart failure): Status: Acute Code(s): I50.9 - Heart failure, unspecified Qualifiers: Heart failure type: systolic Qualified Code(s): I50.23 - Acute on chronic systolic (congestive) heart failure (4) Anemia: Status: Acute Code(s): D64.9 - Anemia, unspecified Qualifiers: Anemia type: iron deficiency Iron deficiency anemia type: unspecified iron deficiency Qualified Code(s): D50.9 - Iron deficiency anemia, unspecified (5) Lesion of ovary: Status: Acute Code(s): N83.9 - Noninflammatory disorder of ovary, fallopian tube and broad ligament, unspecified (6) CKD (chronic kidney disease) stage 3, GFR 30-59 ml/min: Status: Acute Code(s): N18.30 - Chronic kidney disease, stage 3 unspecified (7) Ischemic cardiomyopathy: Status: Acute Code(s): I25.5 - Ischemic cardiomyopathy (8) Coronary artery disease: Status: Acute Code(s): I25.10 - Atherosclerotic heart disease of mohegan coronary artery without angina pectoris Qualifiers: Coronary Disease-Associated Artery/Lesion type: mohegan artery [place] vs. transplanted heart: mohegan heart Associated angina: without angina Qualified Code(s): I25.10 - Atherosclerotic heart disease of mohegan coronary artery without angina pectoris (9) Chronic HFrEF (heart failure with reduced ejection fraction): Status: Acute Code(s): I50.22 - Chronic systolic (congestive) heart failure (10) HTN (hypertension): Status: Acute Code(s): I10 - Essential (primary) hypertension Qualifiers: Hypertension type: unspecified Qualified Code(s): I10 - Essential (primary) hypertension (11) Acute hypoxic respiratory failure: Status: Acute Code(s): J96.01 - Acute respiratory failure with hypoxia (12) Back pain: Status: Acute Code(s): M54.9 - Dorsalgia, unspecified (13) Adnexal mass: Status: Acute Code(s): N94.89 - Other specified conditions associated with female genital organs and menstrual cycle (14) Awa UTI: Status: Acute Code(s): B37.49 - Other urogenital candidiasis Meds Home Medications and Allergies Home Medications ?Medication ?Instructions ?Recorded ?Confirmed ?Type aspirin 81 mg chewable tablet 81 mg PO DAILY 03/11/23 05/18/24 History atorvastatin 40 mg tablet 40 mg PO HS 03/11/23 05/18/24 History carvedilol 3.125 mg tablet 3.125 mg PO BID 03/11/23 05/18/24 History clonazepam 1 mg tablet 1 mg PO HSP PRN Insomnia 12/16/23 05/19/24 History ropinirole 2 mg tablet 2 mg PO HS 05/19/24 05/19/24 History fluconazole 100 mg tablet 100 mg PO DAILY #7 tabs 05/20/24 Rx tramadol 50 mg tablet 50 mg PO Q6H PRN pain #30 tabs 05/20/24 Rx New Prescriptions to Start Prescriptions: fluconazole Frederick,Hollis tramadol Frederick,Hollis Allergies Allergy/AdvReac Type Severity Reaction Status Date / Time promethazine Allergy Intermediate severe Verified 05/18/24 18:51 vomiting Penicillins Allergy Unknown Verified 05/18/24 18:51 allergy reaction Sulfa (Sulfonamide Allergy Unknown Verified 05/18/24 18:51 Antibiotics) allergy reaction triprolidine Allergy Unknown Verified 05/18/24 18:51 allergy reaction Discharge Plan Disposition Patient Disposition: Home Health Service Condition: Fair Discharge Order Discharge Orders: Discharge Order (Routine); Ordered 05/20/24 Ordered By: Hollis Linda Follow up Plan Follow up with: Darline Yao DO [Staff Physician] - 05/27/24 10:45 am Rufus Justice MD [Primary Care Provider] - 06/02/24 10:30 am Prescriptions/Medication Reconciliation: New fluconazole 100 mg tablet 100 mg PO DAILY Qty: 7 0RF tramadol 50 mg tablet 50 mg PO Q6H PRN (Reason: pain) Qty: 30 0RF Continued clonazepam 1 mg tablet 1 mg PO HSP PRN (Reason: Insomnia) Patient Comments: TAKE 1 TABLET BY MOUTH AT BEDTIME NEEDED atorvastatin 40 mg tablet 40 mg PO HS carvedilol 3.125 mg tablet 3.125 mg PO BID aspirin 81 mg tablet,chewable 81 mg PO DAILY ropinirole 2 mg tablet 2 mg PO HS Patient Comments: TAKE 1 TABLET BY MOUTH ONCE DAILY AT BEDTIME 1 TO 3 HOURS BEFORE BEDTIME Discontinued clopidogrel 75 mg tablet 75 mg PO DAILY Problem Reconciliation Problems Reviewed?: Yes Patient Discharge Instructions ACTIVITY: Continue current activity DIET: continue same diet Patient Instructions: DI for Heart Attack, DI for Transient Ischemic Attack, DI for Vaginal Yeast Infection Print Language: Amharic Providers Primary Care Provider: Rufus Justice Admit Provider: Hollis Linda Attending Provider: Hollis Linda
== END 2024-05-20 12:53 | disposition home health service (06) | DRG 280 ==
LOC: ER 15:38 → ICU 17:49 → 2ND 05-19 15:31
PROVIDERS: Admitting Provider Family Medicine; Emergency Provider Emergency Medicine; PCP Family Medicine; Visit Provider Family Medicine
DX: I21.4 Non-ST elevation (NSTEMI) myocardial infarction (principal); J96.01 Acute respiratory failure with hypoxia; G45.9 Transient cerebral ischemic attack, unspecified; I13.0 Hypertensive heart and chronic kidney disease with heart failure and stage 1 through stage 4 chronic kidney disease, or unspecified chronic kidney disease; I50.22 Chronic systolic (congestive) heart failure; B37.49 Other urogenital candidiasis; D64.9 Anemia, unspecified; I25.5 Ischemic cardiomyopathy; I44.7 Left bundle-branch block, unspecified; N18.30 Chronic kidney disease, stage 3 unspecified; Z79.82 Long term (current) use of aspirin; Z79.899 Other long term (current) drug therapy; Z79.02 Long term (current) use of antithrombotics/antiplatelets; Z88.2 Allergy status to sulfonamides; Z88.0 Allergy status to penicillin; Z88.8 Allergy status to other drugs, medicaments and biological substances; I25.2 Old myocardial infarction; E78.5 Hyperlipidemia, unspecified; N83.201 Unspecified ovarian cyst, right side
CPT/HCPCS: 36415; 51702; 70450; 70496; 70498; 70553; 71275; 74174; 80048; 80053; 80061; 80307; 80320; 81001; 82803; 83880; 84484; 85014; 85018; 85025; 85610; 85730; 86850; 87040; 87081; 93005; 93306; 94660; 94760; 94761; 97163; 99291; A9576; J0131; J0696; J1940; J2405; P9016; Q9957; Q9967

== ENCOUNTER 2024-05-26 17:13 | Observation (INO) | payer MEDICARE, BC, SELFPAY ==
[2024-05-26 17:23] VITALS: BP 150/74; PULSE 77; RESP 12; TEMP 36.8; O2SAT 95; BMI 21.6
[2024-05-26 17:24] VITALS: BP 153/78; RESP 12
--- NOTE | 2024-05-26 17:36 | CT_ITS ---
PROCEDURE INFORMATION: Exam: CT Lumbar Spine Without Contrast Exam date and time: 05/26/2024 6:03 PM Age: 83 years old Clinical indication: Other: Midline L spine pain TECHNIQUE: Imaging protocol: Computed tomography of the lumbar spine without contrast. Radiation optimization: All CT scans at this facility use at least one of these dose optimization techniques: automated exposure control; mA and/or kV adjustment per patient size (includes targeted exams where dose is matched to clinical indication); or iterative reconstruction. COMPARISON: CT ABDOMEN PELVIS WO CON 05/26/2024 6:01 PM ; CT abdomen 05/18/2024. FINDINGS: Bones/joints: Five lumbar type vertebral bodies. Generalized osteopenia. Lateral alignment maintained. There is a recent acute-subacute jplb-wl-pvuleuma compression fracture along the superior bony endplate of T12 which is more prominent on the left than the right side. It has mildly progressed compared to recent CT 05/18/2024. There is approximately 40% vertebral body height loss of the left. No significant extension into the spinal canal or alignment abnormality. Chronic mild appearing endplate deformities superiorly on the left at the L3 level and along the inferior L5 endplate. Vertebral body heights otherwise maintained. Additionally there appears to be a subtle fracture along the anterior cortex of the S2 level of the sacrum without fracture lines. This appears chronic. Grossly the central spinal canal is adequate. Lungs: Fibrotic changes left posterior lung base. Calcified nodule anterior lower lung. Soft tissues: Unremarkable. IMPRESSION: 1. There is a recent acute-subacute qgnm-dc-wiflisfz compression fracture along the superior bony endplate of the T12 vertebral body which is more prominent on the left than the right side with approximately 40% vertebral body height loss on the left. This is mildly progressed from recent CT 05/18/2024. No extension into the spinal canal or alignment abnormality. 2. Chronic appearing endplate compressions along the superior L3 endplate and along the inferior L5 endplate. 3. Additionally there appears to be a subtle chronic fracture along the anterior cortex of the S2 level of the sacrum without acute fracture line.
--- NOTE | 2024-05-26 17:36 | CT_ITS ---
PROCEDURE INFORMATION: Exam: CT Abdomen And Pelvis Without Contrast Exam date and time: 05/26/2024 6:01 PM Age: 83 years old Clinical indication: Abdominal pain; Additional info: Lower back and bilateral flank pain TECHNIQUE: Imaging protocol: Computed tomography of the abdomen and pelvis without contrast. Radiation optimization: All CT scans at this facility use at least one of these dose optimization techniques: automated exposure control; mA and/or kV adjustment per patient size (includes targeted exams where dose is matched to clinical indication); or iterative reconstruction. COMPARISON: CT ANGIO ABDOMEN PELVIS 05/18/2024 3:48 PM FINDINGS: Lungs: Dependent bilateral lung base opacities favor atelectasis. Heart: Cardiomegaly unchanged from prior exam. Small pericardial effusion. Liver: Normal. No mass. Gallbladder and biliary ducts: Normal. No calcified stones. No ductal dilation. Pancreas: Normal. No ductal dilation. Spleen: Multiple benign-appearing calcific densities of the spleen. Adrenal glands: Normal. No mass. Kidneys and ureters: No hydronephrosis. No nephrolithiasis. Stomach and bowel: Unremarkable. No obstruction. No mucosal thickening. Appendix: No evidence of appendicitis. Intraperitoneal space: Unremarkable. No free air. No significant fluid collection. Vasculature: Moderate calcific atherosclerotic disease of the abdominal aorta without aneurysmal dilatation is present. Lymph nodes: Unremarkable. No enlarged lymph nodes. Urinary bladder: Air-fluid level at the anterior bladder with bladder may represent cystitis versus related to recent instrumentation/catheterization. Reproductive: Unremarkable as visualized. Bones/joints: Moderate loss of intervertebral disc space with degenerative changes involving L3 through S1. Chronic anterior wedging of T12 worse from prior exam now having 50% loss of height. Soft tissues: Normal. IMPRESSION: 1. Air-fluid level at the anterior bladder with bladder may represent cystitis versus related to recent instrumentation/catheterization. 2. Moderate loss of intervertebral disc space with degenerative changes involving L3 through S1. Chronic anterior wedging of T12 worse from prior exam now having 50% loss of height. 3. No hydronephrosis. No nephrolithiasis.
--- NOTE | 2024-05-26 17:39 | ED_ITS ---
Discharge Plan Disposition Patient Disposition: Admitted Clinical Impressions Clinical Impression: Lower back pain, Compression fracture of T12 vertebra, Physical deconditioning Discharge ED Provider: Camron Mcclure General Adult HPI General Chief complaint: Recheck/Abnormal Lab/Rx Stated complaint: back pain since 05/25/24 and no bm in 4 days Time Seen by Provider: 05/26/24 17:16 Mode of Arrival: EMS Source of Information: Patient, EMS and Medical Record Description of Symptoms (Recalled from ER Triage Doc. by RN): c/o feeling bloated. Pt reports that she was constipated 4-5 days ago but had a bm yesterday that was normal stool. Denies any nausea History of Present Illness HPI narrative: Patient is an 83-year-old female brought in by EMS who is a very poor historian but seems to be coming in for lower back pain. She initially told triage nurse that she did have some lower back pain but she no longer has any pain that she was also constipated but had a bowel movement yesterday. On my assessment patient states that she has still currently having some lower back pain and that is in fact the reason she came in today. She denies any injuries she denies any laterality to it says it has been in the midline but occasionally is off to the side. Denies any urinary symptoms. Related Data Home Medications ?Medication ?Instructions ?Recorded ?Confirmed aspirin 81 mg chewable tablet 81 mg PO DAILY 03/11/23 05/18/24 atorvastatin 40 mg tablet 40 mg PO HS 03/11/23 05/18/24 carvedilol 3.125 mg tablet 3.125 mg PO BID 03/11/23 05/18/24 clonazepam 1 mg tablet 1 mg PO HSP PRN Insomnia 12/16/23 05/19/24 ropinirole 2 mg tablet 2 mg PO HS 05/19/24 05/19/24 Previous Rx's ?Medication ?Instructions ?Recorded fluconazole 100 mg tablet 100 mg PO DAILY #7 tabs 05/20/24 tramadol 50 mg tablet 50 mg PO Q6H PRN pain #30 tabs 05/20/24 Allergies Allergy/AdvReac Type Severity Reaction Status Date / Time promethazine Allergy Intermediate severe Verified 05/18/24 18:51 vomiting Penicillins Allergy Unknown Verified 05/18/24 18:51 allergy reaction Sulfa (Sulfonamide Allergy Unknown Verified 05/18/24 18:51 Antibiotics) allergy reaction triprolidine Allergy Unknown Verified 05/18/24 18:51 allergy reaction [facility] Disclaimer: The information contained in this section may have been updated after the patient was seen, as this information can be updated by other users. Medical History Pyelonephritis GI bleed Chronic constipation CKD (chronic kidney disease) stage 3, GFR 30-59 ml/min Coronary artery disease Ischemic cardiomyopathy ASCVD (arteriosclerotic cardiovascular disease) Systolic heart failure Cardiomyopathy CHF (congestive heart failure) HLD (hyperlipidemia) Hypertension Left bundle branch block (LBBB) determined by electrocardiography NSTEMI (non-ST elevated myocardial infarction) Surgical History History of cardiac cath S/P partial hysterectomy Family History No significant family history Social History (Updated 05/18/24 @ 18:50 by Carmen Pemberton RN) Smoking Status: Never smoker alcohol intake: never current occupational status: retired Travel in the last 8 weeks: None Have you lived/traveled outside US in past 30 days?: No Contact w/someone who lives/traveled outside US past 30 days?: No Exposure to someone with infectious disease in past 14 days?: No Do you have a fever (greater than 100.4 F or 38 C)?: No Have you tested positive for COVID-19: No Exposed to someone with COVID-19 in past 14 days?: No Do you have a sore throat?: No Do you have a cough?: No Do you have any weakness?: No Do you have any diarrhea?: No Are you experiencing any unusual bleeding?: No Do you have any muscle aches/pain?: No Do you have any abdominal pain?: No Are you experiencing loss of taste or smell?: No Other Medical History Have you received the Flu Vaccine for this season: No Have you received the Pneumonia Vaccine: No ROS Obtained: Yes All systems reviewed & no additional complaints except as documented Physical Exam General General appearance: alert and in no apparent distress Respiratory Respiratory exam: Present normal lung sounds bilaterally and respiratory distress Cardiovascular Cardiovascular exam: Present regular rate; Absent normal rhythm Abdominal Exam Abdominal exam: Absent soft, distention or tenderness Back Exam Back exam: Present other (No step-offs or deformities no midline tenderness no paraspinal muscular tenderness neurovascular intact distally) Neurological Exam Neurological exam: Present alert and oriented X3 Medical Decision Making Medical Records Screening: Per USPSTF and CDC recommendations, given the prevalence of disease in our region, it is our hospital?s policy to screen for HIV and viral Hepatitis for all patients aged 18 and over and those with ongoing risk factors. Zbigniew Inquiry Pt receiving controlled substance: No Vital Signs: 05/26/24 17:23 05/26/24 17:24 05/26/24 18:30 Temperature 98.3 F Temperature Source Oral Pulse Rate 72 Pulse Rate [Left Radial] 77 Respiratory Rate 12 12 9 L Blood Pressure 153/78 H 128/57 L Blood Pressure [Right Arm] 150/74 H Blood Pressure Mean [Right Arm] 99 02 Sat by Pulse Oximetry 95 94 L Oxygen Delivery Method Room Air Lab Data Lab results reviewed: Yes I reviewed the patient's lab results. Lab Results 05/26/24 17:36: WBC 9.3, RBC 4.74, Hgb 10.5 L, Hct 35.6 L, MCV 75.1 L, MCH 22.2 L, MCHC 29.5 L, RDW 19.9 H, Plt Count 388, MPV 9.3, Neut % (Auto) 70.8, Lymph % (Auto) 17.7, [place] % (Auto) 7.5, Eos % (Auto) 2.8, Baso % (Auto) 0.8, Neut # (Auto) 6.6, Lymph # (Auto) 1.7, [place] # (Auto) 0.7, Eos # (Auto) 0.3, Baso # (Auto) 0.1, Sodium 144, Potassium 4.7, Chloride 104, Carbon Dioxide 32 H, Anion Gap 12.7, BUN 33 H, Creatinine 1.00, Estimated Creat Clear 38, Estimated GFR 53 L, Est GFR ( Amer) 64, Glucose 121 H, Calcium 9.5, Total Bilirubin 0.5, AST 33, ALT 12, Alkaline Phosphatase 99, Total Protein 7.1, Albumin 3.4 L, G lobulin 3.7 H, Albumin/Globulin Ratio 0.9 L 05/26/24 18:40: Urine Color Yellow, Urine Appearance Clear, Urine pH 6.0, Ur Specific [place] 1.020, Urine Protein Negative, Urine Glucose (UA) Negative, Urine Ketones Negative, Urine Blood Negative, Urine Nitrate Negative, Urine Bilirubin Negative, Urine Urobilinogen 0.2, Ur Leukocyte Esterase Negative, Urine RBC 3-5, Urine WBC 20-50, Ur Squamous Epith Cells 3-5, Urine Bacteria 1+, Urine Mucus 1+ 05/26/24 17:36 05/26/24 17:36 Orders (Tests/Meds): ED MEDICATIONS Discontinued Medications Generic Name Dose Route Start Last Admin Trade Name Freq PRN Reason Stop Dose Admin Lactated Ringer's 500 mls @ 999 mls/hr 05/26/24 17:45 05/26/24 17:50 Lactated Ringer's 1000 Ml Bag IV 05/26/24 18:15 999 mls/hr .Q31M SHAINA Administration Ketorolac Tromethamine 15 mg 05/26/24 17:36 05/26/24 17:50 Ketorolac 30mg/Ml Vial IV 05/26/24 17:37 15 mg ONCE ONE Administration ORDERS Category Date Time Status CT abdomen pelvis wo con Stat Cat Scan 05/26/24 17:[address] lumbar spine wo con Stat Cat Scan 05/26/24 17:36 Completed CBC w/Auto Diff [Complete Blood Count Auto Diff] Stat Lab 05/26/24 17:36 Completed CMP [Comprehensive Metabolic Panel] Stat Lab 05/26/24 17:36 Completed UA [Urinalysis and Microscopic] Stat Lab 05/26/24 18:40 Completed Urine Culture Stat Micro 05/26/24 18:40 Received Medical Decision Narrative: Patient is a very poor historian 83-year-old brought in by EMS for lower back pain. Of note she had a recent CT scan that showed significant constipation we will get a noncontrasted CT scan of her lower/lumbar spine as well as a abdomen pelvis without contrast to further characterize this. While her exam is benign she is a very poor historian and does states she has lower back pain differential includes pathologic fracture kidney stone urinary tract infection etc. IV Toradol and IV fluids have been administered will reassess shortly. Reassessment 7:[address] scan of abdomen pelvis and lumbar spine were performed I personally interpreted them. There is a pretty significant T12 compression fracture with no retropulsion 40 to 50% height loss. This was present on the last CT scan from last month however this was not commented on. It was new in comparison with the last CT before that which was performed in May 2023. This was likely the cause of her back pain recent hospitalization and her lack of improvement. Patient's caregiver and are now at the bedside. They stated that she was recently hospitalized and had the severe back pain but did not have any improvement and has gone home and has not moved essentially out of bed. They state that she is been unable to care for herself and has been significantly deconditioned in comparison with her baseline which is normally highly functional. She is relatively asymptomatic at rest but with any type of movement has severe pain in the location of this fracture so I do believe that this is acute or subacute. I believe that she would benefit from a TLSO brace however we do not have the ability to get that fitted [facility]. I offered to transfer her to [facility] where this could be performed but she declined. She would like to come in the hospital for pain control and physical therapy and Occupational Therapy here at [facility] and understands that we do not have the capabilities definitively at the moment of getting a TLSO brace but would like to stay here. I subsequently spoke with Dr. Carbajal who is on-call for Dr. Justice. I explained to him the situation as well as the fact that she was recently on Dr. Linda service discharged on May 23. He excepted the patient on behalf of Dr. Linda. Patient will be admitted for further management. Patient and family are agreeable to this plan. Critical Care Critical Care Time Critical Care Time: No
[2024-05-26 17:48] LABS: Basophils # 0.1 K/mm3 (0-0.2); Basophils % 0.8 % (0.1-2.0); Eosinophils # 0.3 K/mm3 (0.0-0.4); Eosinophils % 2.8 % (0.1-12.0); Hematocrit 35.6 % (37.0-47.0); Hemoglobin 10.5 g/dL (12.2-16.2); Lymphocytes # 1.7 K/mm3 (0.7-4.5); Lymphocytes % 17.7 % (10-50); Mean Corpuscular HGB Conc 29.5 g/dL (31.8-35.4); Mean Corpuscular Hemoglobin 22.2 pg (27.0-31.2); Mean Corpuscular Volume 75.1 fl (81-99); Mean Platelet Volume 9.3 fl (7.4-10.4); Monocytes # 0.7 K/mm3 (0.1-1.0); Monocytes % 7.5 % (1.7-9.3); Neutrophils # 6.6 K/mm3 (1.8-7.8); Neutrophils % 70.8 % (37.0-80.0); Platelet Count 388 K/mm3 (142-424); Red Blood Count 4.74 M/mm3 (4.20-5.40); Red Cell Distribution Width 19.9 % (11.5-17.5); White Blood Count 9.3 K/mm3 (4.8-10.8)
[2024-05-26] MEDS: KETOROLAC 30MG/ML VIAL 15 MG IV (17:50)
[2024-05-26] MEDS: LACTATED RINGERS 1000ML 500 ML 999 ML IV (17:50)
[2024-05-26 18:11] LABS: Albumin Level 3.4 g/dl (3.5-5.0); Chloride 104 mmol/L (98-107); Potassium 4.7 mmoL/L (3.5-5.1); Sodium 144 mmol/L (136-145)
[2024-05-26 18:14] LABS: Alanine Aminotransferase 12 U/L (12-78); Albumin/Globulin Ratio 0.9 (1.1-1.8); Alkaline Phosphatase 99 U/L (38-126); Anion Gap 12.7 mEq/L (5-15); Aspartate Amino Transferase 33 U/L (14-36); Bilirubin,Total 0.5 mg/dl (0.2-1.3); Blood Urea Nitrogen 33 mg/dl (7-17); Calcium 9.5 mg/dl (8.4-10.2); Carbon Dioxide 32 mmol/L (22.0-30.0); Creatinine Clearance Estimated 38 mL/min (50-200); Estimated Glomerular Filt Rate 53 ml/min (>60); GFR (African American) 64 ML/MIN (>60); Globulin 3.7 g/dL (1.3-3.2); Glucose 121 mg/dl (74-100); Total Protein,Serum 7.1 g/dl (6.3-8.2)
[2024-05-26 18:30] VITALS: BP 128/57; PULSE 72; RESP 9; O2SAT 94
[2024-05-26 18:47] LABS: Microscopic, Urine URINE MICROSCOPIC (MICROSCOPIC)
[2024-05-26 18:48] LABS: Appearance,Urine CLEAR (Clear); Bilirubin,Urine Negative (Negative); Blood, Urine Negative (Negative); Color,Urine YELLOW (Yellow); Glucose,Urine (UA) Negative (Negative); Ketones,Urine Negative (Negative); Leukocyte Esterase,Urine Negative (Negative); Nitrate,Urine Negative (Negative); Protein,Urine Negative (Negative); Urobilinogen,Urine 0.2 EU/dl (0.2)
[2024-05-26 19:14] LABS: Bacteria,Urine 1+ /lpf; Mucus,Urine 1+ /lpf; WBC,Urine 20-50 #/hpf (0-3)
--- NOTE | 2024-05-26 19:34 | PC.NURSE ---
supervisor model making notified of bed request
[2024-05-26 19:58] VITALS: BP 159/77; PULSE 78; RESP 13; TEMP 36.7; O2SAT 96
--- NOTE | 2024-05-26 19:58 | PC.NURSE ---
report given to the floor pending transport to the floor
--- NOTE | 2024-05-26 20:27 | PC.NURSE ---
Patient arrived to[facility] via stretcher from ED at 20:09.
[2024-05-26 20:30] VITALS: BP 155/69; PULSE 73; RESP 13; TEMP 36.7; O2SAT 97; BMI 19.5
--- NOTE | 2024-05-26 20:31 | PC.NURSE ---
med list confirmed per caregiver at bedside - states she will also bring a list in tomorrow
[2024-05-26] MEDS: ROPINIROLE 1MG TABLET 2 MG PO (20:59)
[2024-05-26] MEDS: ACETAMINOPHEN 325MG TAB 650 MG PO (21:00)
[2024-05-26] MEDS: clonazePAM 1MG TABLET 1 MG PO (21:00)
[2024-05-27 04:00] VITALS: BP 142/71; PULSE 56; RESP 16; TEMP 36.6; O2SAT 98; BMI 19.7
--- NOTE | 2024-05-27 06:30 | PC.NURSE ---
This nurse took over care at 0100. Patient has been resting well with no complaints of pain. Alert and oriented. Uses purewick. Room air. Call light in reach. Bed alarm on.
--- NOTE | 2024-05-27 07:59 | HMH.PHAINT1 ---
Pharmacy Intervention Comments: HOME MEDICATION LIST VERIFIED USING LIST FROM OUTPATIENT PHARMACY
[2024-05-27 08:00] VITALS: BP 148/77; PULSE 64; RESP 17; TEMP 36.5; O2SAT 100
--- NOTE | 2024-05-27 08:52 | P.HP_ITS ---
History of Present Illness *Admission Date: 05/26/24 *Reason for visit:: back pain *History of present illness: Patient is an 83-year-old female brought in by EMS who is a very poor historian but seems to be coming in for lower back pain. She initially told triage nurse that she did have some lower back pain but she no longer has any pain that she was also constipated but had a bowel movement yesterday. On my assessment patient states that she has still currently having some lower back pain and that is in fact the reason she came in today. She denies any injuries she denies any laterality to it says it has been in the midline but occasionally is off to the side. Denies any urinary symptoms. (above [facility] Disclaimer: The information contained in this section may have been updated after the patient was seen, as this information can be updated by other users. Medical History Pyelonephritis GI bleed Chronic constipation CKD (chronic kidney disease) stage 3, GFR 30-59 ml/min Coronary artery disease Ischemic cardiomyopathy ASCVD (arteriosclerotic cardiovascular disease) Systolic heart failure Cardiomyopathy CHF (congestive heart failure) HLD (hyperlipidemia) Hypertension Left bundle branch block (LBBB) determined by electrocardiography NSTEMI (non-ST elevated myocardial infarction) Surgical History History of cardiac cath S/P partial hysterectomy Family History No significant family history Social History Smoking Status: Never smoker alcohol intake: never current occupational status: retired Travel in the last 8 weeks: None Have you lived/traveled outside US in past 30 days?: No Contact w/someone who lives/traveled outside US past 30 days?: No Exposure to someone with infectious disease in past 14 days?: No Do you have a fever (greater than 100.4 F or 38 C)?: No Have you tested positive for COVID-19: No Exposed to someone with COVID-19 in past 14 days?: No Do you have a sore throat?: No Do you have a cough?: No Do you have any weakness?: No Do you have any diarrhea?: No Are you experiencing any unusual bleeding?: No Do you have any muscle aches/pain?: No Do you have any abdominal pain?: No Are you experiencing loss of taste or smell?: No Other Medical History Have you received the Flu Vaccine for this season: No Have you received the Pneumonia Vaccine: No Review of Systems Constitutional Constitutional: Denies fatigue, Denies headache(s) and Denies weakness Eyes Eyes: Denies blurry vision and Denies diplopia ENT Ears, Nose, Mouth, and Throat: Denies headache(s), Denies nasal congestion, Denies sore throat and Denies vertigo *Cardiovascular Cardiovascular: Denies chest pain, Denies dyspnea and Denies leg edema *Respiratory Respiratory: Denies cough and Denies dyspnea *Gastrointestinal Gastrointestinal: Denies abdominal pain, Denies loose stools, Denies nausea and Denies vomiting *Musculoskeletal Musculoskeletal: Reports back pain and Denies myalgias *Neurologic Neurologic: Denies headache(s), Denies vertigo and Denies weakness Endocrine Endocrine: Denies fatigue Meds Home Medications and Allergies Home Medications ?Medication ?Instructions ?Recorded ?Confirmed ?Type aspirin 81 mg chewable tablet 81 mg PO DAILY 03/11/23 05/26/24 History atorvastatin 40 mg tablet 40 mg PO HS 03/11/23 05/26/24 History carvedilol 3.125 mg tablet 3.125 mg PO BID 03/11/23 05/26/24 History clonazepam 1 mg tablet 1 mg PO HSP PRN Insomnia 12/16/23 05/26/24 History ropinirole 2 mg tablet 2 mg PO HS 05/19/24 05/26/24 History fluconazole 100 mg tablet 100 mg PO DAILY #7 tabs 05/20/24 05/26/24 Rx tramadol 50 mg tablet 50 mg PO Q6H PRN pain #30 tabs 05/20/24 05/26/24 Rx clopidogrel 75 mg tablet 75 mg PO DAILY 05/26/24 05/26/24 History New Prescriptions to Start Prescriptions: Allergies Allergy/AdvReac Type Severity Reaction Status Date / Time promethazine Allergy Intermediate severe Verified 05/18/24 18:51 vomiting Penicillins Allergy Unknown Verified 05/18/24 18:51 allergy reaction Sulfa (Sulfonamide Allergy Unknown Verified 05/18/24 18:51 Antibiotics) allergy reaction triprolidine Allergy Unknown Verified 05/18/24 18:51 allergy reaction Exam Data for Last 24 hours Vital signs and Labs for Last 24 Hours: Temp Pulse Resp BP Pulse Ox O2 Del Method 97.7 F 64 17 148/77 H 100 Room Air 05/27/24 08:00 05/27/24 08:00 05/27/24 08:00 05/27/24 08:00 05/27/24 08:00 05/27/24 08:00 Laboratory Results - last 24 hr 05/26/24 17:36: WBC 9.3, RBC 4.74, Hgb 10.5 L, Hct 35.6 L, MCV 75.1 L, MCH 22.2 L, MCHC 29.5 L, RDW 19.9 H, Plt Count 388, MPV 9.3, Neut % (Auto) 70.8, Lymph % (Auto) 17.7, [place] % (Auto) 7.5, Eos % (Auto) 2.8, Baso % (Auto) 0.8, Neut # (Auto) 6.6, Lymph # (Auto) 1.7, [place] # (Auto) 0.7, Eos # (Auto) 0.3, Baso # (Auto) 0.1, Sodium 144, Potassium 4.7, Chloride 104, Carbon Dioxide 32 H, Anion Gap 12.7, BUN 33 H, Creatinine 1.00, Estimated Creat Clear 38, Estimated GFR 53 L, Est GFR ( Amer) 64, Glucose 121 H, Calcium 9.5, Total Bilirubin 0.5, AST 33, ALT 12, Alkaline Phosphatase 99, Total Protein 7.1, Albumin 3.4 L, Globulin 3.7 H, Albumin/Globulin Ratio 0.9 L 05/26/24 18:40: Urine Color Yellow, Urine Appearance Clear, Urine pH 6.0, Ur Specific [place] 1.020, Urine Protein Negative, Urine Glucose (UA) Negative, Urine Ketones Negative, Urine Blood Negative, Urine Nitrate Negative, Urine Bilirubin Negative, Urine Urobilinogen 0.2, Ur Leukocyte Esterase Negative, Urine RBC 3-5, Urine WBC 20-50, Ur Squamous Epith Cells 3-5, Urine Bacteria 1+, Urine Mucus 1+ I & O for Last 24 hours: Intake & Output 05/24/24 05/25/24 05/26/24 05/27/24 11:59 11:59 11:59 11:59 Intake Total 300 / 300 Balance 300 / 300 Weight 115 lb 8 oz Constitutional Constitutional: no acute distress *Routine HEENT Exam Head: Present normocephalic and atraumatic Eye: Present EOMI and PERRL ENT: Present mucous membranes dry *Routine Neck Exam Neck: Present supple and full ROM *Routine Respiratory Exam Respiratory: Present CTA bilaterally *Routine Cardiovascular Exam Cardiovascular: Present RRR *Routine Abdominal Exam Abdominal: Present soft and normoactive bowel sounds; Absent tenderness *Routine Rectal Exam Rectal:: deferred *Routine Genitalia Exam Genitalia:: deferred *Routine Extremities Exam Extremities: Absent cyanosis, clubbing or edema Routine Back/Spine/Pelvis Exam Back/Spine: Present vertebral tenderness (lower T-spine) *Routine Skin Exam Skin: Present intact and ecchymosis (right arm); Absent erythema *Routine Neurological Exam Neurological: Present alert and oriented X3 H&P: Result Impressions Lumbar Spine CT 1. There is a recent acute-subacute [id number] compression fracture along the superior bony endplate of the T12 vertebral body which is more prominent on the left than the right side with approximately 40% vertebral body height loss on the left. This is mildly progressed from recent CT 05/18/2024. No extension into the spinal canal or alignment abnormality. 2. Chronic appearing endplate compressions along the superior L3 endplate and along the inferior L5 endplate. 3. Additionally there appears to be a subtle chronic fracture along the anterior cortex of the S2 level of the sacrum without acute fracture line. Assessment and Plan *Assessment and plan (1) Compression fracture of T12 vertebra: Status: Acute Category: Medical Code(s): S22.080A - Wedge compression fracture of T11-T12 vertebra, initial encounter for closed fracture (2) Lower back pain: Status: Acute Category: Medical Code(s): M54.50 - Low back pain, unspecified (3) Physical deconditioning: Status: Acute Category: Medical Code(s): R53.81 - Other malaise (4) Generalized weakness: Status: Acute Category: Medical Code(s): R53.1 - Weakness (5) Chronic HFrEF (heart failure with reduced ejection fraction): Status: Acute Category: Medical Code(s): I50.22 - Chronic systolic (congestive) heart failure (6) HTN (hypertension): Status: Acute Qualifiers: Hypertension type: unspecified Qualified Code(s): I10 - Essential (primary) hypertension Category: Medical Code(s): I10 - Essential (primary) hypertension Plan Will consult PT. Will continue pain control and discuss with Dr. Linda. Dr. Linda entry - Saw patient, will discuss plan for treatment with pain management. PT to see patient. May need MRI.
--- NOTE | 2024-05-27 10:13 | HMH.PTEV ---
Physical Therapy Evaluation Rehab PT IP Evaluation Start: 05/26/24 23:29 Freq: .once Status: Active Protocol: Document 05/27/24 10:08 MERI (Rec: 05/27/24 10:12 MERI [id number]) Subjective/History History History Per H&P, Patient is an 83- year-old female brought in by EMS who is a very poor historian but seems to be coming in for lower back pain. She initially told triage nurse that she did have some lower back pain but she no longer has any pain that she was also constipated but had a bowel movement yesterday. On my assessment patient states that she has still currently having some lower back pain and that is in fact the reason she came in today. She denies any injuries she denies any laterality to it says it has been in the midline but occasionally is off to the side. Denies any urinary symptoms. Subjective Subjective Pt is oriented to person only. Pt is a poor historian. Reports that she lives with her . Unable to provide any further history. Agreeable to PT assessment. New diagnosis of cancer in past 12 No months? [facility] How much help from another person do you currently need... Turning from your back to your side A lot while in a flat bed without using bedrails? Moving from lying on back to sitting on A lot the side of a flat bed without using bedrails? Moving to and from a bed to a chair ( Total including a wheelchair)? Standing up from a chair using your arms Total ? (e.g., wheelchair, bedside chair) Walking in hospital room? Total Climbing 3-5 steps with a railing? Total Mobility Score 8 Mobility Level [facility] Mobility Calculator Mobility 3 Sit at edge of bed Rehab PT IP Eval Objective Appearance Patient Behavior Confused Patient Orientation Person Difficulty following instructions mild Speech Pattern Soft-Spoken Ambulation Patient Able to Ambulate No Balance Sitting Balance Leans or slides in chair Dynamic Sitting Balance Ability Poor Dynamic Standing Balance Ability Zero Transfers Bed Transfer Ability Maximum x 1 (75% assist) Rehab PT IP prob,goals,plan Problems Date of Evaluation: 05/27/24 PT IP Problems Bed Mobility,Transfers,Gait, Balance,Self care,Safety Rehab Potential Rehab Potential Fair Equipment Needs Assistive Devices Rolling / Wheeled Walker Plan PT Intervention Plan Bed Mobility,Transfers,Gait, Balance,Self care,Safety, Therapeutic Exercise Discharge Goals Bed Transfer Ability Minimal x 1 (25% assist) Sit to Stand Chair Transfer Ability Minimal x 1 (25% assist) Ambulation Assistive Device Rolling Walker Ambulation Distance (feet) 15 Discharge Plan PT Discharge Plan PT is recommending placement upon discharge at this time. Pt required maximum assist to transfer from supine to sit, attempted to stand 3 times and was unable to clear the bed. Pt demonstrated a difficulty time following instructions. Skilled PT is indicated during this pt's acute stay. Eval Complexity Eval Charge Codes 85950 - High Complexity PHYSICIAN CERTIFICATION: I certify the specified therapy services for Barbara Najera are required, authorized, and reviewed every 30 days.
--- NOTE | 2024-05-27 11:20 | MR_ITS ---
FINAL REPORT TECHNIQUE: Multiplanar MR without contrast CLINICAL HISTORY: T12 compression fracture COMPARISON: CT lumbar spine dated 05/26/2024 FINDINGS: There is a moderate compression fracture of T12. There is minimal retropulsion of bone. There is approximately 50% loss of height centrally. There are no other levels of fracture identified. There are minimal discogenic endplate changes or endplate edema at T11. Otherwise, marrow signal pattern is normal. Thoracic spinal cord shows a normal MR appearance. There is no significant canal stenosis. IMPRESSION: Moderate, subacute T12 compression fracture with minimal retropulsion without canal stenosis. Fracture is considered benign in appearance. Remaining thoracic spine is unremarkable. Reviewed, Interpreted and Dictated by Denys Townsend MD Transcribed by Sara Torres Authenticated and [facility]
--- NOTE | 2024-05-27 11:22 | CARE MANAGER ---
Spoke with Dr. Solano for Dr. Linda. Dr. Solano recommended MRI, TLSO brace, and pain meds for management. He is out of office next week, but will have the staff work on authorization for kyphoplasty. Relayed message to Dr. Linda.
[2024-05-27] MEDS: ACETAMINOPHEN 325MG TAB 650 MG PO (11:31)
[2024-05-27 13:06] VITALS: BMI 19.7
--- NOTE | 2024-05-27 13:26 | PC.NURSE ---
MARJAN David up to room to place TLSO brace.
[2024-05-27] MEDS: TRAMADOL 50MG TABLET 50 MG PO ×2 (14:12→21:38)
--- NOTE | 2024-05-27 14:25 | PC.NURSE ---
pt going off the floor for MRI at this time.
[2024-05-27 16:00] VITALS: BP 134/79; PULSE 77; RESP 16; TEMP 36.6; O2SAT 99
--- NOTE | 2024-05-27 16:16 | PC.NURSE ---
pt alert and oriented. laying in bed at this time. assist turn. lung sounds cta. abdomen soft, nontender. bowel sounds active. pt did have MRI this date and was fitted for her TLSO brace. pt was able to get up to the chair with assistance x 2. pt has had intermittent low back pain and was medicated per apr. aleksandrter states that pt receives her medications in applesauce at home. bed alarm on, call light w/i reach.
[2024-05-27 19:50] VITALS: BP 159/87; PULSE 87; RESP 16; TEMP 36.5; O2SAT 94
[2024-05-27] MEDS: clonazePAM 1MG TABLET 1 MG PO (20:13)
[2024-05-27] MEDS: CARVEDILOL 3.125MG TABLET 3.125 MG PO (20:13)
[2024-05-27] MEDS: ROPINIROLE 1MG TABLET 2 MG PO (20:13)
[2024-05-27] MEDS: ATORVASTATIN 40MG TABLET 40 MG PO (20:13)
[2024-05-28] VITALS: BP 167/78; PULSE 72; RESP 14; TEMP 36.8; O2SAT 93
[2024-05-28] MEDS: ACETAMINOPHEN 325MG TAB 650 MG PO (00:03)
[2024-05-28] MEDS: TRAMADOL 50MG TABLET 50 MG PO ×2 (02:29→11:57)
--- NOTE | 2024-05-28 03:47 | PC.NURSE ---
Pt. is alert and orientated x 4. Pt. is on room air. Pt. was admitted with a compression FX at T12. Pt. had MRI yesterday and was fitted for a TLSO brace. on my Initial assessment pt. had no pain. Than patient has had pain on and off all this shift. She has been medicated for pain per.APR. c/o low back pain and pain in both legs. Pt. able to move legs. Pt. was in bed and very uncomfortable. Pt. asked to get up to chair. With assist x2 helped pt. to chair and after being settled she fell alseep. Pt. states that she feels weak. Purewick in place. Tried TLSO brace but pt. more uncomfortable. . Pt. also weak in upper extremities. Pt. had trouble holding a popsicle. She has a lot of trouble holding a cup to drink. VSS. Personal items and call chen in reach.
[2024-05-28 04:00] VITALS: BMI 19.7
[2024-05-28 07:35] VITALS: BP 144/77; PULSE 77; RESP 18; TEMP 36.7; O2SAT 100
[2024-05-28] MEDS: CLOPIDOGREL 75MG TAB 75 MG PO (08:31)
[2024-05-28] MEDS: CARVEDILOL 3.125MG TABLET 3.125 MG PO (08:31)
--- NOTE | 2024-05-28 10:09 | EXP.ACUTE.PN ---
Subjective *Date: 05/28/24 *Time: 10:09 Interval history: Patient feels some better today, tolerated a regular diet, anxious to go home. Medical Exam Vital signs and Labs for Last 24 Hours: Vital Signs Temp Pulse Resp BP Pulse Ox O2 Del Method 05/28/24 10:06 Room Air 05/28/24 08:38 Room Air 05/28/24 08:00 Room Air 05/28/24 07:35 98.1 F 77 18 144/77 H 100 Room Air 05/28/24 07:00 Room Air 05/28/24 05:00 Room Air 05/28/24 03:00 Room Air 05/28/24 01:00 Room Air 05/28/24 00:00 98.3 F 72 14 167/78 H 93 L Room Air 05/27/24 23:00 Room Air 05/27/24 21:00 Room Air 05/27/24 20:00 Room Air 05/27/24 19:50 97.7 F 87 16 159/87 H 94 L Room Air 05/27/24 17:00 Room Air 05/27/24 16:00 98 F 77 16 134/79 99 05/27/24 13:00 Room Air 05/27/24 11:00 Room Air Intake and Output 05/27/24 05/28/24 05/28/24 23:59 07:59 15:59 Intake Total 120 / 360 240 / 360 120 / 360 Output Total 0 / 0 350 / 350 Balance 120 / 360 -110 / 10 120 / 10 Intake: Intake, Oral Amount 120 / 360 240 / 360 120 / 360 Output: Output, Urine Amount 0 / 0 350 / 350 Other: Number of Voids 1 Number of Unmeasured Voids 1 1 Weight 115 lb 8.003 oz Patient Weight 05/28/24 23:59 Weight 115 lb 8.003 oz I & O for Labs for Last 24 Hours: Intake & Output 05/25/24 05/26/24 05/27/24 05/28/24 23:59 23:59 23:59 23:59 Intake Total 300 / 300 120 / 360 360 / 360 Output Total 0 / 0 350 / 350 Balance 300 / 300 120 / 360 10 / 10 Weight 114 lb 12.8 oz 115 lb 8.003 oz 115 lb 8.003 oz Microbiology Reports for the Last 24 Hours: Microbiology 05/26/24 18:40 Urine,Clean Catch Urine Culture - Final Constitutional: Present no acute distress Respiratory: Present normal respiratory effort Cardiac: Present Reg Rate and Rhythm Extremities: Present normal inspection and full ROM Skin: Present intact; Absent erythema Neuro: Present moves all extremities Assessment and Plan *Assessment and plan (1) Compression fracture of T12 vertebra: Status: Acute Category: Medical Code(s): S22.080A - Wedge compression fracture of T11-T12 vertebra, initial encounter for closed fracture (2) Lower back pain: Status: Acute Category: Medical Code(s): M54.50 - Low back pain, unspecified (3) Physical deconditioning: Status: Acute Category: Medical Code(s): R53.81 - Other malaise (4) Generalized weakness: Status: Acute Category: Medical Code(s): R53.1 - Weakness (5) Chronic HFrEF (heart failure with reduced ejection fraction): Status: Acute Category: Medical Code(s): I50.22 - Chronic systolic (congestive) heart failure (6) HTN (hypertension): Status: Acute Qualifiers: Hypertension type: unspecified Qualified Code(s): I10 - Essential (primary) hypertension Category: Medical Code(s): I10 - Essential (primary) hypertension Plan MRI report reviewed, Dr. Solano notified and is planning on doing an outpatient kyphoplasty in the near future. OK to discharge home with TLSO brace and Tramadol for pain control.
--- NOTE | 2024-05-31 10:21 | SW/DCPLANNER ---
Spoke with patients caregiver on the phone. Patients post acute care registered nurse stated that patient isnt doing too good and that she is in alot of pain. Patients caregiver stated that the DR office hasnt called to schedule an appointment yet. Patients post acute care registered nurse stated that she wasnt prescribed any new medicine. Patients post acute care registered nurse stated that home health has called and that PT is coming on . Patients post acute care registered nurse stated that she has no concerns or questions at this time. Cathie Guerrero
--- NOTE | 2024-05-31 11:22 | EXP.DC.SUM ---
General Admission date:: 05/26/24 Discharge date: 05/28/24 HPI HPI HPI: Patient is an 83-year-old female brought in by EMS who is a very poor historian but seems to be coming in for lower back pain. She initially told triage nurse that she did have some lower back pain but she no longer has any pain that she was also constipated but had a bowel movement yesterday. On my assessment patient states that she has still currently having some lower back pain and that is in fact the reason she came in today. She denies any injuries she denies any laterality to it says it has been in the midline but occasionally is off to the side. Denies any urinary symptoms. (above Hospital Course Hospital Course Hospital Course: On admission physical therapy was consulted. Plan was to control her pain. She did feel better after admission with less pain. She was able to tolerate a regular diet. She was anxious to go home. Physical therapy did feel like she would need ongoing rehab. MRI did show a wedge compression fracture of T11/T12 vertebrae. Dr. Solano was consulted for possible outpatient kyphoplasty in the near future. Patient was fitted for a TLSO brace. On 05/28/2024 patient was stable to be discharged to home. She was to wear her TLSO brace. She was given tramadol for pain control. Follow-up with Dr. Justice on 06/09/[address] Solano. Exam Data for Last 24 hours Vital signs and Labs for Last 24 Hours: Temp Pulse Resp BP Pulse Ox O2 Del Method 98.1 F 77 18 144/77 H 100 Room Air 05/28/24 07:35 05/28/24 07:35 05/28/24 07:35 05/28/24 07:35 05/28/24 07:35 05/28/24 10:06 I & O for Last 24 hours: Intake & Output 05/28/24 05/29/24 05/30/24 05/31/24 11:59 11:59 11:59 11:59 Intake Total 480 / 480 Output Total 350 / 350 Balance 130 / 130 Weight 115 lb 8.003 oz Narrative: PE on day of discharge 05/28/2024 Constitutional: Present no acute distress Respiratory: Present normal respiratory effort Cardiac: Present Reg Rate and Rhythm Extremities: Present normal inspection and full ROM Skin: Present intact; Absent erythema Neuro: Present moves all extremities Results Data Completed and Pending Completed studies during hospitalization [Text1]: 05/26/2024 CT of ABD/pelvis IMPRESSION: 1. Air-fluid level at the anterior bladder with bladder may represent cystitis versus related to recent instrumentation/catheterization. 2. Moderate loss of intervertebral disc space with degenerative changes involving L3 through S1. Chronic anterior wedging of T12 worse from prior exam now having 50% loss of height. 3. No hydronephrosis. No nephrolithiasis. 05/26/2024 CT of Lumbar spine IMPRESSION: 1. There is a recent acute-subacute ttsu-jv-qitaoowq compression fracture along the superior bony endplate of the T12 vertebral body which is more prominent on the left than the right side with approximately 40% vertebral body height loss on the left. This is mildly progressed from recent CT 05/18/2024. No extension into the spinal canal or alignment abnormality. 2. Chronic appearing endplate compressions along the superior L3 endplate and along the inferior L5 endplate. 3. Additionally there appears to be a subtle chronic fracture along the anterior cortex of the S2 level of the sacrum without acute fracture line. 05/27/2024 MRI Thoracic spine FINDINGS: There is a moderate compression fracture of T12. There is minimal retropulsion of bone. There is approximately 50% loss of height centrally. There are no other levels of fracture identified. There are minimal discogenic endplate changes or endplate edema at T11. Otherwise, marrow signal pattern is normal. Thoracic spinal cord shows a normal MR appearance. There is no significant canal stenosis. IMPRESSION: Moderate, subacute T12 compression fracture with minimal retropulsion without canal stenosis. Fracture is considered benign in appearance. Remaining thoracic spine is unremarkable. DS: Diagnosis Discharge Diagnosis (1) Compression fracture of T12 vertebra: Status: Acute Code(s): S22.080A - Wedge compression fracture of T11-T12 vertebra, initial encounter for closed fracture (2) Lower back pain: Status: Acute Code(s): M54.50 - Low back pain, unspecified (3) Physical deconditioning: Status: Acute Code(s): R53.81 - Other malaise (4) Generalized weakness: Status: Acute Code(s): R53.1 - Weakness (5) Chronic HFrEF (heart failure with reduced ejection fraction): Status: Acute Code(s): I50.22 - Chronic systolic (congestive) heart failure (6) HTN (hypertension): Status: Acute Code(s): I10 - Essential (primary) hypertension Qualifiers: Hypertension type: unspecified Qualified Code(s): I10 - Essential (primary) hypertension Meds Home Medications and Allergies Home Medications ?Medication ?Instructions ?Recorded ?Confirmed ?Type aspirin 81 mg chewable tablet 81 mg PO DAILY 03/11/23 05/26/24 History atorvastatin 40 mg tablet 40 mg PO HS 03/11/23 05/26/24 History carvedilol 3.125 mg tablet 3.125 mg PO BID 03/11/23 05/26/24 History clonazepam 1 mg tablet 1 mg PO HSP PRN Insomnia 12/16/23 05/26/24 History ropinirole 2 mg tablet 2 mg PO HS 05/19/24 05/26/24 History fluconazole 100 mg tablet 100 mg PO DAILY #7 tabs 05/20/24 05/26/24 Rx clopidogrel 75 mg tablet 75 mg PO DAILY 05/26/24 05/26/24 History tramadol 50 mg tablet 50 mg PO Q6H PRN pain #30 tabs 05/28/24 Rx New Prescriptions to Start Prescriptions: tramadol Maddi,Hollis Allergies Allergy/AdvReac Type Severity Reaction Status Date / Time promethazine Allergy Intermediate severe Verified 05/18/24 18:51 vomiting Penicillins Allergy Unknown Verified 05/18/24 18:51 allergy reaction Sulfa (Sulfonamide Allergy Unknown Verified 05/18/24 18:51 Antibiotics) allergy reaction triprolidine Allergy Unknown Verified 05/18/24 18:51 allergy reaction Discharge Plan Disposition Patient Disposition: Home Health Service Condition: Fair Discharge Order Discharge Orders: Discharge Order (Routine); Ordered 05/28/24 Ordered By: Hollis Linda Follow up Plan Follow up with: Memo Solano MD [Staff Physician] - Enter time for follow up (Date to be determined next week. ) Rufus Justice MD [Primary Care Provider] - 06/09/24 Prescriptions/Medication Reconciliation: Continued clonazepam 1 mg tablet 1 mg PO HSP PRN (Reason: Insomnia) Patient Comments: TAKE 1 TABLET BY MOUTH AT BEDTIME NEEDED atorvastatin 40 mg tablet 40 mg PO HS carvedilol 3.125 mg tablet 3.125 mg PO BID aspirin 81 mg tablet,chewable 81 mg PO DAILY ropinirole 2 mg tablet 2 mg PO HS Patient Comments: TAKE 1 TABLET BY MOUTH ONCE DAILY AT BEDTIME 1 TO 3 HOURS BEFORE BEDTIME fluconazole 100 mg tablet 100 mg PO DAILY Qty: 7 0RF clopidogrel 75 mg tablet 75 mg PO DAILY tramadol 50 mg tablet 50 mg PO Q6H PRN (Reason: pain) Qty: 30 0RF Problem Reconciliation Problems Reviewed?: Yes Patient Discharge Instructions ACTIVITY: Limited activity DIET: continue same diet Patient Instructions: Vertebral Compression Fracture, DI for Vertebral Fracture Print Language: Guatemalan Providers Primary Care Provider: Rufus Justice Admit Provider: Hollis Linda Attending Provider: Hollis Linda
== END 2024-05-28 12:58 | disposition home health service (06) ==
LOC: ER 19:34 → 2ND 19:36
PROVIDERS: Admitting Provider Family Medicine; Emergency Provider Student in an Organized Health Care Education/Training Program; PCP Family Medicine; Visit Provider Family Medicine
DX: S22.080A Wedge compression fracture of T11-T12 vertebra, initial encounter for closed fracture (principal); I11.0 Hypertensive heart disease with heart failure; I50.22 Chronic systolic (congestive) heart failure; M54.50 Low back pain, unspecified; R53.81 Other malaise; I25.2 Old myocardial infarction; E78.5 Hyperlipidemia, unspecified; R53.1 Weakness; I13.0 Hypertensive heart and chronic kidney disease with heart failure and stage 1 through stage 4 chronic kidney disease, or unspecified chronic kidney disease; N18.30 Chronic kidney disease, stage 3 unspecified; Z88.0 Allergy status to penicillin; Z88.2 Allergy status to sulfonamides; Z88.8 Allergy status to other drugs, medicaments and biological substances; Z79.02 Long term (current) use of antithrombotics/antiplatelets; Z79.82 Long term (current) use of aspirin
CPT/HCPCS: 72131; 72146; 74176; 80053; 81001; 85025; 87086; 97163; 97530; 97760; 99285; G0378; J1885; J7120

== ENCOUNTER 2024-11-07 10:37 | Inpatient (IN) | payer MEDICARE, BC, SELFPAY ==
--- OUTSIDE RECORDS SUMMARY | 2023-12-03 10:45 | XMS_ITS ---
[facility] Address [address] [place] [id number] Care Team Providers Care Online Project Manager Name Role Phone Krzysztof Justice Primary Care Provider Camron Carbajal Unavailable [phone] Allergies Allergen (clinical drug ingredient) Drug/Non Drug Allergy documented on EMR Reaction Allergy Type Onset Date Status Triprolidine-Pseudoe p hedrine Unknown Drug Allergy Active Substance with penicillin structure and antibacterial mechanism of action (substance) Penicillins Unknown Drug Allergy Active Results Component Value Reference Range Notes Urinalysis - Inhouse Reviewed date:12/07/2023 10:10:41 AM Interpretation: Performing Lab: Notes/Report: Color/Clarity yellow/cloudy Leuk 3+ Nitrite pos Urobili 3.2 Protein 1+ pH 6.0 Blood 1+ Sp. Gr. 1.015 Ketone neg Bili neg Gluc neg P-Culture, Urine Reviewed date:12/17/2023 03:56:39 PM Interpretation:sensitive Performing Lab: Notes/Report: Test performed by [facility] [address] [place] [address] , [place] [address] Christian Woods MD, Administrator Social Welfare CLIA: [id number] Specimen Source Urine - Void Culture, Urine See Below See Microbiol ogy Report Klebsiella pneumoniae 50,000-100,000 CFU /ml Klebsiella pneumoniae Sensitivity Panel See Below _ Organism K.pneum Antibiotic INTERP _ Amikacin S Ampicillin R Aztreonam S Cefepime S Cefoxitin S Ceftazidime S Ceftriaxone S Cefuroxime S Ciprofloxacin S Ertapenem S Gentamicin S Imipenem S Levofloxacin S Meropenem S Nitrofurantoin S Piperacillin/Tazo S Tetracycline S Tobramycin S Trimeth/Sulfa S S=SUSCEPTIBLE I=INTERMEDIATE R=RESISTANT REASON FOR VISIT UTI Medications Medication SIG (Take, Route, Frequency, Duration) Notes Start Date End Date Status Bactrim DS 800-160 MG 1 tablet Orally Tw o times a day; Duration: 5 day(s) 12/03/2023 Active Entresto 24-26 MG 1 tablet Orally Twic e a day; Duration: 90 days Active Clopidogrel Bisulfate 75 MG 1 tablet Orally Once a day; Duration: 90 days Active Ondansetron 4 MG 1 tablet on the tong ue and allow to dissolve Orally every 8 hours 02/13/2023 Active Aspirin 81 81 MG 1 tablet Orally Once a day; Duration: 90 days Active Jardiance 10 MG 1 tablet Orally Once a day; Duration: 90 days Active Spironolactone 25 MG 1 tablet Orally Onc e a day; Duration: 90 days Not-Takin g Potassium Chloride ER 10 MEQ 1 tablet with food Orally Once a day; Duration: 30 days Not-Taking Furosemide 40 MG 1 tablet Orally Once a day; Duration: 90 days Not-Takin g Norvasc 5 MG 1 tab(s) orally once a day Active clonazePAM 1 MG 1 tablet Orally at bedtime as needed 11/26/2023 Active LORazepam 1 MG 1 tablet at bedtime as needed Orally two times a day as needed Active Citrucel 500 MG 2 tablets with a ful l glass of water as needed Orally Six times a day Active rOPINIRole HCl 1 MG 1 tablet 1 to 3 hour s before bedtime Orally once daily 02/05/2023 Active Carvedilol 3.125 MG 1 tablet with food Orally Twice a day; Duration: 90 days Active traMADol HCl 50 MG 1 tab(s) Orally four times a day as needed 09/22/2023 Active Atorvastatin Calcium 40 MG 1 tablet Oral ly Once a day; Duration: 90 days Active Vital Signs Blood pressure systolic 152 mm Hg 12/03/19 24 Blood pressure diastolic 82 mm Hg 024 Heart Rate 90 /min 12/03/2023 Height 65 in 12/03/2023 Weight 129.2 lbs 12/03/2023 BMI 21.50 kg/m2 12/03/2023 Encounters Encounter Location Date Provider Diagnosis [facility] [facility] [address] [id number] 12/03/2023 Camron Carbajal Acute UTI N39 .0 Assessments Encounter Date Diagnosis (ICD Code) Assessment Notes Treatment Notes Treatment Clinical Notes Section Notes 12/03/2023 Acute UTI (ICD-10 - N39.0) Plan Of Treatment Medication Medication Name Sig Start Date Stop Date Notes Bactrim DS 800-160 MG 1 tablet Orally Tw o times a day; Duration: 5 day(s) 12/03/2023 Next Appt Details Follow Up: 6 Weeks Vinh, Reason: Progress Notes * JEANNINE NAJERAOB: [birth year] (84 yo F)Acc No.[id number]:12/03/2023 Progress Notes Patient: BRANDY MARTINEZ Provider: Camron Carbajal M.D. :1940 A ge:83 Y S ex:Female Date:12/03/2023 Address:[address] [place] [address], [id number] Pcp:Krzysztof Justice Subjective: * Chief Complaints: * 1 . UTI. * HPI: U rology: The patient is here today with c/o urinary frequency and burning with urination since Thursday. Pt states she did some test strips at home and these were positive for UTI. Pt states she is also needing a refill for Tramadol sent to [facility] in [place]. 83 year old female presents with c/o frequent urination. c/o burning sensation. Denies : hematuria. D enies : fever. * ROS: D ERMATOLOGY: no R malu. n o H kulwinder. G ASTROENTEROLOGY: no N ausea. n o V omiting. U ROLOGY: no D ifficulty urinating. n o B lood in urine. * Medical History: H ypertension - white coat syndrome, Hyperlipidemia, Declines health maintenance screening and immunizations - 09/2018, ASCVD, NSTEMI - 01/2023, Ischemic cardiomyopathy - EF = 25%. * Surgical History: H ysterectomy , Heart Cath/ [place]/ 80% LAD with one stent/ 25% ejection fraction 01/2023. * Hospitalization/Major Diagno stic Procedure[facility]. * Family History: F ather: . M other: . 4 sister(s) . 1 daughter(s) . . * Social History: C URRENT TOBACCO USE S moking Status: Patient does NOT smoke. C affeine: yes, frequency:. Marital Status: . Past smoking status: no, Smoking status: Does not smoke. Alcohol: no. * Medications: T aking LORazepam 1 MG Tablet 1 tablet at bedtime as needed Orally two times a day as needed , Taking Citrucel 500 MG Tablet 2 tablets with a full glass of water as needed Orally Six times a day , Taking Norvasc 5 MG Tablet 1 tab(s) orally once a day , Taking Jardiance 10 MG Tablet 1 tablet Orally Once a day , Taking Clopidogrel Bisulfate 75 MG Tablet 1 tablet Orally Once a day , Taking Entresto 24-26 MG Tablet 1 tablet Orally Twice a day , Taking Aspirin 81 81 MG Tablet Chewable 1 tablet Orally Once a day , Taking Ondansetron 4 MG Tablet Disintegrating 1 tablet on the tongue and allow to dissolve Orally every 8 hours , Taking traMADol HCl 50 MG Tablet 1 tab(s) Orally four times a day as needed , Taking Carvedilol 3.125 MG Tablet 1 tablet with food Orally Twice a day , Taking Atorvastatin Calcium 40 MG Tablet 1 tablet Orally Once a day , Taking rOPINIRole HCl 1 MG Tablet 1 tablet 1 to 3 hours before bedtime Orally once daily , Taking clonazePAM 1 MG Tablet 1 tablet Orally at bedtime as needed , Not-Taking Spironolactone 25 MG Tablet 1 tablet Orally Once a day , Not-Taking Furosemide 40 MG Tablet 1 tablet Orally Once a day , Not-Taking Potassium Chloride ER 10 MEQ Tablet Extended Release 1 tablet with food Orally Once a day , Discontinued HYDROcodone-Acetaminophen 5-325 MG Tablet 1 tablet as needed Orally every 6 hrs , Discontinued Simvastatin 5 MG Tablet 1 tab(s) orally once a day (at bedtime) , Medication List reviewed and reconciled with the patient * Allergies: T riprolidine-Pseudoephedrine, Penicillins. Objective: * Vitals: W t:129.2, Temp:98.4, BP:152/82, HR:90, Nurse:ANNA, Ht: 65, BMI:21.50. * Examination: G eneral Examination: General Appearance: N AD. H EENT: u nremarkable.?Oral cavity: n o lesions, mucosa moist and WNL, no erythema. N ira: s upple, no lymphadenopathy. C hest: n ormal shape and expansion. H eart: R SR. L ungs: c lear to auscultation. A bdomen: soft and nontender. N eurologic Exam: no focal deficits, wheelchair. S kin: n ormal, no rash. P eripheral pulses: n ormal. E xtremities: 1 + leg edema right, 2+ left. Assessment: * Assessment: 1. A cute UTI - N39.0 (Primary) Plan: * Treatment: Value Reference Range C olor/Clarity yellow/cloudy * L euk 3+ * N itrite pos * U robili 3.2 * P rotein 1+ * p H 6.0 * B lood 1+ * S p. Gr. 1.015 * K etone neg * B uriah neg * G rose marie neg * June Smith 12/03/2023 2:56 :14 PM > , Provider reviewed results while patient in office. * Labs: * L ab: P-Culture, Urine (Collection Date & Time - 12/03/2023 02:58 PM) s ensitive Value Reference Range C ulture, Urine See Below - * S pecimen Source Urine - Void - * S ensitivity Panel See Below - * K lebsiella pneumoniae 50,000-100,000 CFU/ml Klebsiella pneumoniae - * Kimberlyn Strong 12/16/2023 4: 35:32 PM > Attempted to call patient and Number no longer in serviceKimberlyn Strong 12/17/2023 3:56:06 PM > Results called to pt's caregiver and health care legal assistant states the pt is doing much better * Procedure Codes: 8 1002 Urinalysis, no micro * Follow Up: 6 Weeks Vihn * Images: Billing Information: * Visit Code: 92344 Office Visit, Est Pt., Level 3. * Procedure Codes: 95308 Urinalysis, no micro. * Electronic signature of Camron Carbajal MD on 11/07/2024 at 10:54 AM EDT Sign off status: Pending * Provider: Camron Carbajal M.D. Date: Generated for Camillai francisco/Malena/eTransmitting on: 0 11/07/2024 10:54 AM EDT History and Physical Notes * HPI (History of Present Illness) Category Sub-Category Detail Notes Category Not es Urology frequent urination burning sensation hematuria fever Examination Category Sub-Category Detail Notes Category Not es General Examination HEENT: unremarkable Heart: RSR Lungs: clear to auscultatio n Abdomen: soft and nontender Extremities: 1+ leg edema right, 2+ left General Appearance: NAD Skin: normal, no rash Neurologic Exam: no focal deficits, w heelchair Neck: supple, no lymphaden opathy Oral cavity: no lesions, mucosa m oist and WNL, no erythema Peripheral pulses: normal Chest: normal shape and exp ansion
--- OUTSIDE RECORDS SUMMARY | 2024-04-22 11:00 | XMS_ITS ---
Author Organization [facility] Address [address] [facility] [address] [place] [phone] Care Team Providers Care Complaint Clerk Name Role Phone Krzysztof Justice Primary Care Provider [phone] Trista Flores [phone] Allergies Allergen (clinical drug ingredient) Drug/Non Drug Allergy documented on EMR Reaction Allergy Type Onset Date Status Triprolidine-Pseudoe p hedrine Unknown Drug Allergy Active Substance with penicillin structure and antibacterial mechanism of action (substance) Penicillins Unknown Drug Allergy Active REASON FOR VISIT sinus drainage, vomiting Encounters Encounter Location Date Provider Diagnosis [facility] [address] [facility] [address] [place] [phone] 04/22/2024 Trista Flores Plan Of Treatment No Information Progress Notes * JEANNINE NAJERAOB: [birth year] (84 yo F)Acc No.[id number]:04/22/2024 Progress Notes Patient: BRANDY MARTIENZ Provider: GRACIE Cook :1940 A ge:83 Y S ex:Female Date:04/22/2024 Address:[address] [place], [place] [id number] Pcp:Krzysztof Justice Subjective: * Chief Complaints: * [...] fraction 01/2023. * Hospitalization/Major Diagno stic Procedure: b stacey leg , [facility] - RLS 11/17/2023. * Family History: [...] * Electronic signature of GRACIE Clark on 11/07/2024 at 10:54 AM EDT Sign off status: Pending * Provider: GRACIE Cook Date: 0 04/22/2024 Generated for Ar singh/Malena/eTransmitting on: 0 11/07/2024 10:54 AM EDT History and Physical Notes * HPI (History of Present Illness) Category Sub-Category Detail Notes Category Not es ENT/respiratory nasal congestion Gastroenterology Vomiting
--- OUTSIDE RECORDS SUMMARY | 2024-06-02 06:45 | XMS_ITS ---
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 Name Role Phone Krzysztof Justice Primary Care Provider [phone] Allergies Allergen (clinical drug ingredient) Drug/Non Drug Allergy documented on EMR Reaction Allergy Type Onset Date Status Triprolidine-Pseudoe p hedrine Unknown Drug Allergy Active Substance with penicillin structure and antibacterial mechanism of action (substance) Penicillins Unknown Drug Allergy Active REASON FOR VISIT [facility] F/U Encounters Encounter Location Date Provider Diagnosis [facility] [address] [facility] [address] [place] [phone] 06/02/2024 Krzysztof Justice Assessments Encounter Date Diagnosis (ICD Code) Assessment Notes Treatment Notes Treatment Clinical Notes Section Notes 06/02/2024 Other Discharge summary with available lab/diagnostic imaging results obtained and reviewed. Discharge medication list reconciled. Appropriate counseling provided. Moderate Complexity Plan Of Treatment Treatment Notes Assessment Notes Other Discharge summary wi th available lab/diagnostic imaging results obtained and reviewed. Discharge medication list reconciled. Appropriate counseling provided. Moderate Complexity Progress Notes * JEANNINE NAJERAOB: [birth year] (84 yo F)Acc No.[id number]:06/02/2024 Progress Notes Patient: BRANDY MARTINEZ Provider: Krzysztof Justice M.D. :1940 A ge:83 Y S ex:Female Date:06/02/2024 Address:[address] [facility], [id number] Subjective: * Chief Complaints: * 1 . [facility] F/U. * HPI: H PI: Patient is here today for a Transition of Care Visit. Discharge from the following Facility: [facility] ,Discharge date: Thursday05/20/2024 ,Date of phone contact [...] Diagno stic Procedure: b stacey leg , [facility] ER - RLS 11/17/2023. * Family History: [...] TRANS CARE MGMT 14 DAY DISCH, 1111F [facility] MED/CURENT MED MERGE, G2211 Complex e/m visit add on * Images: Billing Information: * Visit Code: * Procedure Codes: 16473 TRANS CARE MGMT 14 DAY DISCH. 1111F [facility] MED/CURENT MED MERGE. G2211 Complex e/m visit add on. * Electronic signature of Krzysztof Justice MD on 11/07/2024 at 10:54 AM EDT Sign off status: Pending * Provider: Krzysztof Justice M.D. Date: 0 06/02/2024 Generated for Ar Red/Pastoritting on: 0 11/07/2024 10:54 AM EDT History and Physical Notes * HPI (History of Present Illness) Category Sub-Category Detail Notes Category Not es HPI Patient is here today for a Smith sition of Care Visit. Discharge from the following Facility: [facility] ,Discharge date: Thursday05/20/2024 ,Date of phone contact following discharge: Thursday05/23/2024. Pt was seen for lower back pain
--- OUTSIDE RECORDS SUMMARY | 2024-08-11 09:30 | XMS_ITS ---
[facility] Address [address] [place] [id number] Care Team Providers Care Billboard Mechanic Name Role Phone Krzysztof Justice Primary Care Provider Allergies Allergen (clinical drug ingredient) Drug/Non Drug Allergy documented on EMR Reaction Allergy Type Onset Date Status Triprolidine-Pseudoe p hedrine Unknown Drug Allergy Active Substance with penicillin structure and antibacterial mechanism of action (substance) Penicillins Unknown Drug Allergy Active REASON FOR VISIT Check Up Medications Medication SIG (Take, Route, Frequency, Duration) Notes Start Date End Date Status Jardiance 10 MG 1 tablet Orally Once a day; Duration: 90 days Active LORazepam 1 MG 1 tablet at bedtime as needed Orally two times a day as needed Active traMADol HCl 50 MG 1 tab(s) Orally four times a day as needed 08/11/2024 Active Norvasc 5 MG 1 tab(s) orally once a day Active Citrucel 500 MG 2 tablets with a ful l glass of water as needed Orally Six times a day Active Potassium Chloride ER 10 MEQ 1 tablet with food Orally Once a day; Duration: 30 days Not-Taking Furosemide 40 MG 1 tablet Orally Once a day; Duration: 90 days Not-Takin g clonazePAM 1 MG 1 tablet Orally at bedtime as needed 08/11/2024 Active rOPINIRole HCl 2 MG 1 tablet 1 to 3 hour s before bedtime Orally once daily; Duration: 30 days 02/05/2023 Active Spironolactone 25 MG 1 tablet Orally Onc e a day; Duration: 90 days Not-Takin g Carvedilol 3.125 MG 1 tablet with food Orally Twice a day; Duration: 90 days Active Atorvastatin Calcium 40 MG 1 tablet Oral ly Once a day; Duration: 90 days Active Clopidogrel Bisulfate 75 MG 1 tablet Orally Once a day; Duration: 90 days Active Ondansetron 4 MG 1 tablet on the tong ue and allow to dissolve Orally every 8 hours 02/13/2023 Active Aspirin 81 81 MG 1 tablet Orally Once a day; Duration: 90 days Active Entresto 24-26 MG 1 tablet Orally Twic e a day; Duration: 90 days Active Vital Signs Blood pressure systolic 150 mm Hg 08/12/19 25 Blood pressure diastolic 80 mm Hg 025 Heart Rate 90 /min 08/11/2024 Height 65 in 08/11/2024 Weight 122.0 lbs 08/11/2024 BMI 20.3 kg/m2 08/11/2024 Encounters Encounter Location Date Provider Diagnosis [facility] [address], [place] [id number] 08/11/2024 R Pradip Justice Restless leg syndrom e G25.81 ; ASCVD (arteriosclerotic cardiovascular disease) I25.10 ; Stage 3 chronic kidney disease, unspecified whether stage 3a or 3b CKD N18.30 ; Chronic HFrEF (heart failure with reduced ejection fraction) I50.22 ; Cardiomyopathy, unspecified type I42.9 ; Hyperlipidemia E78.5 ; HTN (hypertension) I10 and BMI 20.0-20.9, adult Z68.20 Assessments Encounter Date Diagnosis (ICD Code) Assessment Notes Treatment Notes Treatment Clinical Notes Section Notes 08/11/2024 Restless leg syndrome (ICD-10 - G25.81) 08/11/2024 ASCVD (arteriosclerotic cardiovascular disease) (ICD-10 - I25.10) 08/11/2024 Stage 3 chronic kidney disease, unspecified whether stage 3a or 3b CKD (ICD-10 - N18.30) 08/11/2024 Chronic HFrEF (heart failure with reduced ejection fraction) (ICD-10 - I50.22) 08/11/2024 Cardiomyopathy, unspecified type (ICD-10 - I42.9) 08/11/2024 Hyperlipidemia (ICD-10 - E78.5) 08/11/2024 HTN (hypertension) (ICD-10 - I10) 08/11/2024 BMI 20.0-20.9, adult (ICD-10 - Z68.20) Plan Of Treatment Medication Medication Name Sig Start Date Stop Date Notes traMADol HCl 50 MG 1 tab(s) Orally four times a day as needed 08/11/2024 clonazePAM 1 MG 1 tablet Orally at bedtime as needed 08/11 rOPINIRole HCl 2 MG 1 tablet 1 to 3 hour s before bedtime Orally once daily; Duration: 30 days 02/05/2023 Next Appt Details Follow Up: 3 Months, Reason: Progress Notes * JEANNINE NAJERAOB: [birth year] (84 yo F)Acc No.[id number]:08/11/2024 Progress Notes Patient: BRANDY MARTINEZ Provider: Krzysztof Justice M.D. :1940 A ge:84 Y S ex:Female Date:08/11/2024 Address:[address] [place] [address], [id number] Subjective: * Chief Complaints: * 1 . Check Up. * HPI: H PI: 84 year old female presents with c/o Patient is here today for?Pt is here today for a check up. . She has a full-time sitter at home. Her is currently residing at [facility] for rehab following hip fracture. Her appetite is good.Sleeps fairly well at night with her current regimen. She is needing refills. L ower back: She suffered a T12 compression fracture about 3 months ago after a fall at home. She was scheduled for kyphoplasty with Dr. Solano but did not follow-up as she did not understand the nature of the procedure. She thought she was having a more invasive back surgery. She plans to follow-up with Dr. Solano but actually now states that most of her pain is resolved. * ROS: D ERMATOLOGY: no R malu. [...] stic Procedure: mary ann [place] , [facility] - RLS 11/17/2023. * Family History: [...] dissolve Orally every 8 hours , Taking Atorvastatin Calcium 40 MG Tablet 1 tablet Orally Once a day , Taking Carvedilol 3.125 MG Tablet 1 tablet with food Orally Twice a day , Taking Clopidogrel Bisulfate 75 MG Tablet 1 tablet Orally Once a day , Taking rOPINIRole HCl 2 MG Tablet 1 tablet 1 to 3 hours before bedtime Orally once daily , Taking clonazePAM 1 MG Tablet 1 tablet Orally at bedtime as needed , Taking traMADol HCl 50 MG Tablet 1 tab(s) Orally four times a day as needed , Not-Taking Spironolactone 25 MG Tablet 1 tablet Orally Once a day , Not-Taking Furosemide 40 MG Tablet 1 tablet Orally Once a day , Not-Taking Potassium Chloride ER 10 MEQ Tablet Extended Release 1 tablet with food Orally Once a day , Medication List reviewed and reconciled with the patient * Allergies: T riprolidine-Pseudoephedrine, Penicillins. Objective: * Vitals: W t: 122.0, Temp: 98.4, BP: 150/80, HR: 90, Nurse: mmyvette, Ht: 65, BMI:20.3. * Examination: Saritha astroenterology: S natasha comes in by wheelchair accompanied by her sitter. She is alert and oriented. Color is good. Affect is good. Mucous membranes are moist. Neck is supple with no adenopathy or thyromegaly. Lungs are clear to auscultation. Heart is regular with no murmurs. Abdomen is soft and nondistended with no tenderness. Extremities no edema. Assessment: * Assessment: 1. R estless leg syndrome - G25.81 (Primary) 2 . A SCVD (arteriosclerotic cardiovascular disease) - I25.10 3 . S tage 3 chronic kidney disease, unspecified whether stage 3a or 3b CKD - N18.30 4 . C hronic HFrEF (heart failure with reduced ejection fraction) - I50.22 5 . C ardiomyopathy, unspecified type - I42.9? 6. H yperlipidemia - E78.5 7 . H TN (hypertension) - I10 8 . B MN 20.0-20.9, adult - Z68.20 Plan: * Treatment: 2. O thers Refill clonazePAM Tablet, 1 MG, 1 tablet, Orally, at bedtime as needed, 30, Refills 1; R efill traMADol HCl Tablet, 50 MG, 1 tab(s), Orally, four times a day as needed, 40, Refills 1. * Procedure Codes: G 2211 Complex e/m visit add on, G8420 BMI<30 AND >=22 CALC & DOCU, G8753 MOST RECENT SYSTOLIC BP >= 140MM HG, G8754 MOST RECENT DIASTOLIC BP < 90MM HG, 1036F TOBACCO NON-USER * Follow Up: 3 Months * Images: Billing Information: * Visit Code: 05306 Office Visit, Est Pt., Level 3. * Procedure Codes: G2211 Complex e/m visit add on. G8420 BMI<30 AND >=22 CALC & DOCU. G8753 MOST RECENT SYSTOLIC BP >= 140MM HG. G8754 MOST RECENT DIASTOLIC BP < 90MM HG. 1036F TOBACCO NON-USER. * Electronic signature of Krzysztof Natasha Justice MD on 11/07/2024 at 10:55 AM EDT Sign off status: Pending * Provider: Krzysztof Justice M.D. Date: 0 08/11/2024 Generated for Ar singh/Malena/Pastoritting on: 0 11/07/2024 10:55 AM EDT History and Physical Notes * HPI (History of Present Illness) Category Sub-Category Detail Notes Category Not es Lower back She suffered a T12 compression fracture about 3 months ago after a fall at home. She was scheduled for kyphoplasty with Dr. Solano but did not follow-up as she did not understand the nature of the procedure. She thought she was having a more invasive back surgery. She plans to follow-up with Dr. Solano but actually now states that most of her pain is resolved. [facility] is here today for a check up. She has a full-time sitter at home. Her is currently residing at [facility] for rehab following hip fracture. Her appetite is good.Sleeps fairly well at night with her current regimen. She is needing refills. Examination Category Sub-Category Detail Notes Category Not es Gastroenterology She comes i n by wheelchair accompanied by her sitter. She is alert and oriented. Color is good. Affect is good. Mucous membranes are moist. Neck is supple with no adenopathy or thyromegaly. Lungs are clear to auscultation. Heart is regular with no murmurs. Abdomen is soft and nondistended with no tenderness. Extremities no edema.
[2024-11-07] VITALS (26 sets, daily range): BP systolic 106–181; BP diastolic 42–103; PULSE 65–126; RESP 16–34; TEMP 36.4–37; O2SAT 76–100; BMI 21.9; BMI 21.1
--- NOTE | 2024-11-07 10:40 | PC.NURSE ---
Addendum entered by Meeta Cunningham RN 11/07/24 10:52: pt placed on CPAP not Bipap Original Note: 1035 Respiratiry at bedside. pt placed on Bipap at fiO2 60%. tolerating well
--- NOTE | 2024-11-07 10:40 | ECG_ITS ---
APPROVED REPORT Exam: Resting ECG HR:129 bpm ECG Measurements Heart Rate 129 AXES OK 142 P 78 QRSd 154 QRS -46 QT 319 T 76 QTc 395 Conclusion SINUS TACHYCARDIA LEFT AXIS DEVIATION [QRS AXIS < -30] INTRAVENTRICULAR CONDUCTION DELAY [130+ ms QRS DURATION] ABNORMAL ECG UNCONFIRMED REPORT Electronically signed by : Oneil Mcclure, 11/07/2024 15:26:19
--- NOTE | 2024-11-07 10:48 | XR_ITS ---
FINAL REPORT CLINICAL HISTORY: Shortness of breath COMPARISON: 03/18/2023 FINDINGS: CHEST 1 VIEW No acute pulmonary opacity is present. There is vascular congestion with mild interstitial edema. No significant effusion. Heart size is normal. IMPRESSION: Mild CHF, new since prior exam. Reviewed, Interpreted and Dictated by Denys Townsend MD Transcribed by Fany Monzon Authenticated and [facility]
--- NOTE | 2024-11-07 10:48 | CT_ITS ---
FINAL REPORT TECHNIQUE: Thin section axial CT with contrast with multiplanar reconstruction This study was performed with techniques to keep radiation doses as low as reasonably achievable, (ALARA). Individualized dose reduction techniques using automated exposure control or adjustment of mA and/or kV according to the patient's size were employed. CLINICAL HISTORY: hypoxic respiratory failure COMPARISON: 05/18/2024 FINDINGS: Pulmonary vessels enhance in normal fashion without evidence of embolism. Thoracic aorta shows no dissection or aneurysm. There are multifocal airspace opacities present in the right upper lobe and to lesser extent in the right lower lobe, consistent with pneumonia. There is moderate left lower lobe atelectasis present. Moderate bilateral effusions are increased since the prior exam. There is no significant pericardial effusion. No mediastinal or hilar adenopathy is present. Cardiomegaly is present. IMPRESSION: 1. Multifocal airspace opacities in the right lung, consistent with pneumonia. 2. No pulmonary embolism. 3. Moderate bilateral pleural effusions, increased since the prior exam of 05/18/2024. Reviewed, Interpreted and Dictated by Denys Townsend MD Transcribed by Kyra Linder Authenticated and [facility]
[2024-11-07 10:53] LABS: Hematocrit 27.6 % (37.0-47.0); Hemoglobin 8.1 g/dL (12.2-16.2); Immature Granulocytes % 0.4 %; Mean Corpuscular HGB Conc 29.3 g/dL (31.8-35.4); Mean Corpuscular Hemoglobin 23.3 pg (27.0-31.2); Mean Corpuscular Volume 79.5 fl (81-99); Nucleated Red Blood Cells % 0 %; Platelet Count 421 K/mm3 (142-424); Red Blood Count 3.47 M/mm3 (4.20-5.40); Red Cell Distribution Width-SD 50.1 fL; White Blood Count 14.2 K/mm3 (4.8-10.8)
--- OUTSIDE RECORDS SUMMARY | 2024-11-07 10:54 | XMS_ITS | Clinical Summary ---
Author Organization [facility] Address [address] [place] [address] Care Team Providers Care Digital Marketing Strategist Name Role Phone System, Provider Not In Primary Care Provider Un available Social History Tobacco Use Types Packs/Day Years Used Date Smoking Tobacco: Never Assessed Comments Unknown Sex and Gender Information Value Date Recorded Sex Assigned at Not on file Legal Sex Female 5:20 PM EST Gender Identity Not on file Sexual Orientation Not on file Plan of Treatment Health Maintenance Due Date Last Done Comments Bone Density Scan 1940 Medicare Annual Wellness (AWV) 1940 Hepatitis B Screening 1958 DTaP/Tdap/Td Vaccines (1 - Tdap) 06/17/1959 Pneumococcal Vaccine: 50+ Ye ars (1 of 1 - PCV) 1990 Zoster Vaccines (1 of 2) 1990 Depression Risk Screening 02/24/2024 Fall Risk Screening 02/24/2024 SDOH Screening 02/24/2024 COVID-19 Vaccine (1 - 2023-2 5 season) 2024 Influenza Vaccine (#1) 2024 HIB Vaccines Aged Out No longer eligi ble based on patient's age to complete this topic HPV Vaccines Aged Out No longer eligi ble based on patient's age to complete this topic Hepatitis A Vaccines Aged Out No long er eligible based on patient's age to complete this topic Hepatitis B Vaccines Aged Out No long er eligible based on patient's age to complete this topic IPV Vaccines Aged Out No longer eligi ble based on patient's age to complete this topic Meningococcal B Vaccine Aged Out No l onger eligible based on patient's age to complete this topic Meningococcal Vaccine Aged Out No mitch rahul eligible based on patient's age to complete this topic Rotavirus Vaccines Aged Out No longer eligible based on patient's age to complete this topic Insurance [facility] MEDICARE Care Teams Digital Marketing Strategist Relationship Specialty Start Date End Date System, Provider Not In PCP - General 04/26/20
--- OUTSIDE RECORDS SUMMARY | 2024-11-07 10:54 | XMS_ITS | Clinical Summary ---
Author Organization [facility] Address [address] [place] [address] Care Team Providers Care Oil Separator Name Role Phone Estefani Puga MD Primary Care Provider [phone] Allergies Active Allergy Reactions Criticality Noted Date Comments Penicillins Hives Medium 02/18/2023 Sulfacetamide Hives Medium 02/18/2023 Medications traMADol (ULTRAM) 50 MG tablet Take 50 mg by mouth every 6 (six) hours as needed for Pain. Active rOPINIRole (REQUIP) 0.5 MG tablet Take 0.5 mg by mouth 3 (three) times daily. Active potassium chloride SA (KLOR-CON M) 20 MEQ CR tablet Take 20 mEq by mouth 2 (two) times daily. Active sacubitril-valsarta n (ENTRESTO) 24-26 MG tablet Take 1 tablet by mouth 2 (two) times daily. Active clopidogrel (PLAVIX) 75 MG tablet Take 75 mg by mouth daily. Active carvedilol (COREG) 3.125 MG tablet Take 3.125 mg by mouth 2 (two) times daily with meals. Active furosemide (LASIX) 40 MG tablet Take 40 mg by mouth daily. Active spironolactone (ALDACTONE) 25 MG tablet Take 25 mg by mouth daily. Active empagliflozin (JARDIANCE) 10 MG tablet Take 10 mg by mouth daily. Active aspirin (ASPIRIN 81) 81 MG EC tablet Take 81 mg by mouth daily. Active atorvastatin (LIPITOR) 40 MG tablet Take 40 mg by mouth nightly. Active ondansetron (ZOFRAN-ODT) 4 MG disintegrating tablet Take 4 mg by mouth every 8 (eight) hours as needed for Nausea. Active scopolamine (TRANSDERM-SCOP) 1 MG (1.5 MG BASE)/[address] 1 patch onto the skin every third day. 10 patch 02/26/2023 2:05 PM EST Active Active Problems Problem Noted Date Diagnosed Date Lower GI bleed 02/19/2023 Social History Tobacco Use Types Packs/Day Years Used Date Smoking Tobacco: Never Smokeless Tobacco: Never Tobacco Cessation:Counseling Given: Not Answered Alcohol Use Standard Drinks/Week Comments Never 0 (1 standard drink = 0.6 oz pur e alcohol) Comments No Sex and Gender Information Value Date Recorded Sex Assigned at Not on file Legal Sex Female 12:35 PM EST Gender Identity Not on file Sexual Orientation Not on file Last Filed Vital Signs Vital Sign Reading Time Taken Comments Blood Pressure 133/54 02/26/2023 11:11 AM EST Pulse 78 02/26/2023 11:11 AM EST Temperature 36.8 C (98.2 F) 02/26/2023 11:11 AM EST Respiratory Rate 18 02/26/2023 11:11 AM EST Oxygen Saturation 97% 02/26/2023 11:11 AM EST Inhaled Oxygen Concentration - - Weight 67.3 kg (148 lb 5.9 oz) 02/18/2023 6:03 P M EST Height 165.1 cm (5' 5 ) 02/18/2023 6:03 PM EST Body Mass Index 24.69 02/18/2023 6:03 PM EST Plan of Treatment Health Maintenance Due Date Last Done Comments Medicare Annual Wellness Visit (AWV) 1940 Tdap/Td Vaccine >11 yo (1 - Tdap) 06/17/1959 Pneumococcal Vaccines >50 yo (1 of 1 - PCV) 1990 Shingles (Shingrix) (1 of 2) 1990 Osteoporosis Screening 2005 RSV 50+ and (1 - 1-dose 75+ series) 06/17/2015 Annual SDOH Screening 02/24/2024 Influenza Vaccine (#1) 2024 3, 01/02/2021, 12/20/2019, Additional history exists Haemophilus Influenzae Type B (Hib) Vaccine Aged Out No longer eligible based on patient's age to complete this topic Hepatitis A (HepA) Vaccine Aged Out N o longer eligible based on patient's age to complete this topic Hepatitis B (HepB) Vaccine Aged Out N o longer eligible based on patient's age to complete this topic Meningococcal ACWY Aged Out No longer eligible based on patient's age to complete this topic Polio (IPV) Aged Out No longer eligi ble based on patient's age to complete this topic Rotavirus (RV) Vaccine Aged Out No lo nger eligible based on patient's age to complete this topic Insurance MEDICARE Member Subscriber Plan / Payer (Ef fective 2020-Present) Name:NAJERA,BRANDY C Relation to Subscriber:Spouse Name:BRANDY NAJERA Date of :1940 (Home) Address: [address] [place] [address] Payer ID:[id number] (NAIC) Type:Indemni Address: [facility] [id number] [place] [id number] Care Teams Oil Separator Relationship Specialty Start Date End Date Estefani Puga MD [address] [place] [id number] PCP - General Nephrology 02/18/23
--- OUTSIDE RECORDS SUMMARY | 2024-11-07 10:54 | XMS_ITS | Patient Health Record ---
Author Organization [id number] [facility] Address [address] [facility] [address] [place], [place] [phone] Support Name Relationship Address Phone Dania Barbara Guarantor Unknown Reason For Referral No Information Plan Of Treatment No Information Insurance Providers Payer Name Payer Address Payer Phone Subscriber Number Group Number Insured Name Patient Relationship to Insured Coverage Start Date Coverage End Date [employer] NON-HMO [address] [place], [place] [id number] [phone] [id number] Barbara Hopkins Self - patient is the insured MEDICARE [place] PART B [address] [place], [place] [id number] Barbara Hopkins Self - patient is the insured
--- OUTSIDE RECORDS SUMMARY | 2024-11-07 10:54 | XMS_ITS | Clinical Summary ---
Author Organization [facility] Address [address] [place] [address] Care Team Providers Care Circular Ripsaw Operator Name Role Phone Unavailable Primary Care Provider Unavailabl e Social History Tobacco Use Types Packs/Day Years Used Date Smoking Tobacco: Never Assessed Comments Unknown Sex and Gender Information Value Date Recorded Sex Assigned at Not on file Legal Sex Female 8:29 PM EST Gender Identity Not on file Sexual Orientation Not on file Plan of Treatment Not on file Insurance [facility] [place] [address]
--- OUTSIDE RECORDS SUMMARY | 2024-11-07 10:55 | XMS_ITS | Patient Health Record ---
[facility] [address] [id number] Care Team Providers Care Bedspread Inspector Name Role Phone Krzysztof Justice Primary Care Provider [phone] Camron Carbajal Unavailable [phone] Trista Flores Unavailable [phone] Allergies Allergen (clinical drug ingredient) Drug/Non Drug [...] Interpretation:sensitive Performing Lab: Notes/Report: Test performed by [facility] , [address], [place] [address] Christian Woods MD, Curtain Cutter Hand CLIA: [id number] Specimen Source Urine - Void Culture, Urine See Below See Microbiol ogy Report Klebsiella pneumoniae 50,000-100,000 CFU /ml Klebsiella pneumoniae Sensitivity Panel See Below ____ Organism K.pneum Antibiotic INTERP ____ Amikacin S Ampicillin R Aztreonam S Cefepime S Cefoxitin S Ceftazidime S Ceftriaxone S Cefuroxime S Ciprofloxacin S Ertapenem S Gentamicin S Imipenem S Levofloxacin S Meropenem S Nitrofurantoin S Piperacillin/Tazo S Tetracycline S Tobramycin S Trimeth/Sulfa S ___ S=SUSCEPTIBLE I=INTERMEDIATE R=RESISTANT H-BMP Reviewed date:05/20/2024 01:26:19 PM Interpretation: Performing Lab: Notes/Report: NA 140 136-145 mmol/L K 3.4 3.5-5.1 mmoL/L CL 95 98-107 mmol/L CO2 35 22.0-30.0 mmol/L GAP 13.4 5-15 mEq/L BUN 20 7-17 mg/dl Delta: 11 on 05/19/24 CREATT 1.10 0.52-1.04 mg/dl Delta: 0.90 on 05/19/24 CRCLE 36 50-200 mL/min GFRAA 57 >60 ML/MIN Delta: 72 on 05/19/24 EGFR 47 >60 ml/min GLU 124 74-100 mg/dl CA 8.8 8.4-10.2 mg/dl H-CBC Reviewed date:05/20/2024 01:26:19 PM Interpretation: Performing Lab: Notes/Report: WBC 10.1 4.8-10.8 K/mm3 RBC 4.91 4.20-5.40 M/mm3 HGB 11.0 12.2-16.2 g/dL HCT 35.9 37.0-47.0 % MCV 73.1 81-99 fl MCH 22.4 27.0-31.2 pg MCHC 30.6 31.8-35.4 g/dL RDW 18.8 11.5-17.5 % PLT 366 142-424 K/mm3 MPV 8.9 7.4-10.4 fl NE% 72.5 37.0-80.0 % LY% 15.1 10-50 % MO% 9.5 1.7-9.3 % EO% 2.1 0.1-12.0 % BA% 0.4 0.1-2.0 % NE# 7.3 1.8-7.8 K/mm3 LY# 1.5 0.7-4.5 K/mm3 MO# 1.0 0.1-1.0 K/mm3 EO# 0.2 0.0-0.4 K/mm3 BA# 0.0 0-0.2 K/mm3 H-CMP Reviewed date:05/20/2024 01:26:19 PM Interpretation: Performing Lab: Notes/Report: NA 140 136-145 mmol/L K 3.3 3.5-5.1 mmoL/L CL 100 98-107 mmol/L CO2 29 22.0-30.0 mmol/L GAP 14.3 5-15 mEq/L BUN 11 7-17 mg/dl CREATT 0.90 0.52-1.04 mg/dl Delta: 0.70 on 05/18/24 CRCLE 40 50-200 mL/min GFRAA 72 >60 ML/MIN Delta: 97 on 05/18/24 EGFR 60 >60 ml/min GLU 111 74-100 mg/dl CA 8.7 8.4-10.2 mg/dl BILIT 1.2 0.2-1.3 mg/dl AST 43 14-36 U/L Delta: 27 on 05/18/24 ALT 13 12-78 U/L TP 7.6 6.3-8.2 g/dl ALB 4.0 3.5-5.0 g/dl Delta: 3.1 on 05/18/24 GLOB 3.6 1.3-3.2 g/dL AGRATIO 1.1 1.1-1.8 ALP 111 38-126 U/L H-Hemoglobin/Hematocrit Reviewed date:05/20/2024 01:26:19 PM Interpretation: Performing Lab: Notes/Report: HGB 8.8 12.2-16.2 g/dL Delta: 7.1 on 05/18/24-1604 HCT 28.6 37.0-47.0 % H-CBC Reviewed date:05/20/2024 01:26:19 PM Interpretation: Performing Lab: Notes/Report: WBC 11.1 4.8-10.8 K/mm3 Delta: 7.4 on 05/18/24-1604 RBC 4.72 4.20-5.40 M/mm3 Delta: 3.32 on 05/18/24 HGB 10.5 12.2-16.2 g/dL Delta: 8.8 on 05/19/24-129 HCT 34.7 37.0-47.0 % MCV 73.5 81-99 fl MCH 22.5 27.0-31.2 pg MCHC 30.5 31.8-35.4 g/dL RDW 18.3 11.5-17.5 % PLT 308 142-424 K/mm3 MPV 8.7 7.4-10.4 fl NE% 79.7 37.0-80.0 % LY% 7.7 10-50 % MO% 10.2 1.7-9.3 % EO% 1.5 0.1-12.0 % BA% 0.5 0.1-2.0 % NE# 8.9 1.8-7.8 K/mm3 LY# 0.9 0.7-4.5 K/mm3 MO# 1.1 0.1-1.0 K/mm3 EO# 0.2 0.0-0.4 K/mm3 BA# 0.1 0-0.2 K/mm3 H-CRE Screen Reviewed date:05/20/2024 01:26:19 PM Interpretation: Performing Lab: Notes/Report: CRE CRE Screen: Positive H-Crossmatch Reviewed date:05/20/2024 01:26:20 PM Interpretation: Performing Lab: Notes/Report: RBC Product Order Reason Hgb/Hct <9/26 w/ CAHD Timeframe for Post-Transf H/H 1 hour XM UNIT NUMBER: [id number] XM COMPATIBLE: Y XM PRODUCT: Red Blood Cells XM SOURCE: [facility] XM BLOOD TYPE: A Positive XM VOLUME: 250mL XM CROSSMATCH COMPONENTS: XMNOTE Notification CLIF Notified by Wendy West MLT 05/18/241951. H-Type and Screen Reviewed date:05/20/2024 01:26:20 PM Interpretation: Performing Lab: Notes/Report: RBC Product Order Reason Hgb/Hct <9/26 w/ CAHD Timeframe for Post-Transf H/H 1 hour BT A Positive ABS NEGATIVE H-URC Reviewed date:05/20/2024 01:26:19 PM Interpretation: Performing Lab: Notes/Report: U500.0100 TRANSFUSED PRODUCT: Red Blood Cells COUNT: [address] Reason For [address]erral Reason Dr. Solano is aware and wants to do a kyphoplasty the week of June 06 Diagnosis 1 Compression fracture of T12 vertebra, initial encounter (S22.080A) Referral Organization [facility] Referring Provider First Name Krzysztof Moseley Referring Provider Last Name Vinh Referring Provider Speciality [facility] Referred Provider Memo Solano Referred Provider Specialty Pain Managem ent General Notes Desire Kennedy 2024 08:32:38 AM > [facility]ed [facility] Brynn 06/02/2024 10:28:41 AM > spoke to Myrna in [place]; patient needed to be scheduled in [place] for Dr. Solano (I was unaware) so I just faxed to the [place] office Referral Priority Routine Medications Medication SIG (Take, Route, Frequency, Duration) Notes Start Date End Date Status Norvasc 5 MG 1 tab(s) orally once a day; Duration: 90 days Active Jardiance 10 MG 1 tablet Orally Once a day; Duration: 90 days Active Entresto 24-26 MG 1 tablet Orally Twic e a day; Duration: 90 days Active clonazePAM 1 MG 1 tablet at bedtime Orally Once a day PRN; Duration: 30 days 10/10/2024 Active Citrucel 500 MG 2 tablets with a ful l glass of water as needed Orally Six times a day; Duration: 90 days Active traMADol HCl 50 MG 1 tablet as needed Orally 4 times a day; Duration: 30 days 10/10/2024 Active Spironolactone 25 MG 1 tablet Orally Onc e a day; Duration: 90 days Not-Takin g rOPINIRole HCl 3 MG 1 tablet 1 to 3 hour s before bedtime Orally Once a day; Duration: 30 days 09/07/2024 Active Ondansetron 4 MG 1 tablet on the tong ue and allow to dissolve Orally every 8 hours 02/13/2023 Active Potassium Chloride ER 10 MEQ 1 tablet with food Orally Once a day; Duration: 30 days Not-Taking Furosemide 40 MG 1 tablet Orally Once a day; Duration: 90 days Not-Takin g LORazepam 1 MG 1 tablet at bedtime as needed Orally two times a day as needed Active Clopidogrel Bisulfate 75 MG Take 1 tablet by mouth once daily; Duration: 90 Active Aspirin 81 81 MG 1 tablet Orally Once a day; Duration: 90 days Active Atorvastatin Calcium 40 MG 1 tablet Oral ly Once a day; Duration: 90 days Active Carvedilol 3.125 MG 1 tablet with food Orally Twice a day; Duration: 90 days Active Immunizations Vaccine Route Administration Date Status Comme nts COVID 19 Moderna Unknown 04/25/2020 Administered COVID 19 Moderna Unknown 05/23/2020 Administered COVID 19 Moderna Unknown 01/15/2021 Administered Fluzone High Dose (65yr and older) IM Intramuscular 11/14/2011 Administered Fluzone High Dose (65yr and older) IM Intramuscular 12/29/2012 Administered Fluzone High Dose (65yr and older) IM Intramuscular 12/22/2013 Administered Fluzone High Dose (65yr and older) IM Intramuscular 11/30/2014 Administered Fluzone High Dose (65yr and older) IM Intramuscular 12/20/2015 Administered Fluzone High Dose (65yr and older) IM Intramuscular 01/06/2017 Administered Fluzone High Dose (65yr and older) IM Intramuscular 12/14/2017 Administered Given by MP Fluzone High Dose (65yr and older) IM Intramuscular 12/21/2018 Administered Fluzone High Dose (65yr and older) IM Intramuscular 12/20/2019 Administered Fluzone High Dose (65yr and older) IM Intramuscular 01/13/2022 Administered Fluzone High Dose (65yr and older) IM Intramuscular 11/26/2023 Administered xFlu shot-36 months and older IM Intramuscular 12/25/2009 Administered xFluzone High Dose-private (65yr&older) Unknown 01/06/2017 Administered xFluzone High Dose-private (65yr&older) Unknown 12/14/2017 Administered xFluzone High Dose-private (65yr&older) Unknown 12/21/2018 Administered pNeltpxg-tvovdqjlq-rdjb care pts. IM Intramuscular 12/16/2010 Administered Problems Problem Type SNOMED Code ICD Code Onset Dates Problem Status W/U Status Risk Notes Problem Essential hypertension (75713154) Essential (primary) hypertension (I10) Active confirmed Problem Coronary arteriosclerosis (44109984) ASCVD (arteriosclerotic cardiovascular disease) (I25.10) Active confirmed Problem Hypertension (22500205) HTN (hypertension) (I10) Active confirmed Problem Hyperlipidemia (84230260) Hyperlipidemia (E78.5) Active confirmed Problem Essential hypertension (59153325) Essential hypertension (I10) Active confirmed Problem Restless legs syndrome (10262148) Restless leg syndrome (G25.81) Active confirmed Problem Dysphagia (72806248) Dysphagia (R13.10) Active confirmed Problem Ischemic cardiomyopathy (308060148) Ischemic cardiomyopathy (I25.5) Active confirmed Problem Constipation (57866306) Constipation, unspecified constipation type (K59.00) Active confirmed Problem Kidney stone (75523817) Kidney stone (N20.0) Active confirmed Problem Transient ischemic attack (989619971) TIA (transient ischemic attack) (G45.9) Active confirmed Problem Atherosclerotic heart disease of [place] coronary artery without angina pectoris (357156706396312) Atherosclerosis of [place] coronary artery without angina pectoris, unspecified whether [place] or transplanted heart (I25.10) Active confirmed Problem Cardiomyopathy (40815894) Cardiomyopathy, unspecified type (I42.9) Active confirmed Problem Chronic systolic heart failure (194711044) Chronic HFrEF (heart failure with reduced ejection fraction) (I50.22) Active confirmed Problem Essential hypertension (26782566) White coat syndrome with diagnosis of hypertension (I10) Active confirmed Problem Chronic kidney disease stage 3 (disorder) (701316503) Stage 3 chronic kidney disease, unspecified whether stage 3a or 3b CKD (N18.30) Active confirmed Problem Mass of uterine adnexa (985982296) Adnexal mass (N94.89) Active confirmed Vital Signs Heart Rate 90 /min 08/11/2024 Blood pressure diastolic 80 mm Hg 08/11/2024 Height 65 in 08/11/2024 Blood pressure systolic 150 mm Hg 08/11/2024 Weight 122.0 lbs 08/11/2024 BMI 20.3 kg/m2 08/11/2024 Encounters Encounter Location Date Provider Diagnosis [facility] [address] [place] [id number] 11/26/2023 R Pradip Vinh Restless leg syndrom e G25.81 and Encounter for immunization Z23 [facility] [address] [facility] [place], [place] [id number] 12/03/2023 Camron Carbajal Acute UTI N39.0 [facility] [address] [place], [place] [id number] 08/11/2024 R Pradip Vinh Restless leg syndrom e G25.81 ; ASCVD (arteriosclerotic cardiovascular disease) I25.10 ; Stage 3 chronic kidney disease, unspecified whether stage 3a or 3b CKD N18.30 ; Chronic HFrEF (heart failure with reduced ejection fraction) I50.22 ; Cardiomyopathy, unspecified type I42.9 ; Hyperlipidemia E78.5 ; HTN (hypertension) I10 and BMI 20.0-20.9, adult Z68.20 [facility] [address] [place], [place] [id number] 12/04/2023 R Pradip Vinh [facility] [address] [place] [id number] 12/21/2023 R Pradip Vinh Hyperlipidemia E78.5 and ASCVD (arteriosclerotic cardiovascular disease) I25.10 [facility] [address] [facility] [place], [place] [id number] 01/14/2024 R Pradip Vinh Restless leg syndrom e G25.81 [facility] [address] [facility] [address] [place], [place] [id number] 01/18/2024 R Pradip Vinh [facility] [address] [place], [place] [id number] 03/01/2024 R Pradip Vinh Restless leg syndrom e G25.81 [facility] [address] [place], [place] [id number] 03/16/2024 R Pradip Vinh [facility] [address] [place], [place] [id number] 04/04/2024 R Pradip Vinh [facility] [address] [place], [place] [id number] 05/20/2024 R Pradip Vinh [facility] [address] [place], [place] [id number] 05/30/2024 R Pradip Vinh Compression fracture of T12 vertebra, initial encounter S22.080A [facility] [address] [place], [place] [id number] 06/02/2024 R Pradip Vinh [facility] [address] [place], [place] [id number] 06/07/2024 R Pradip Vinh Restless leg syndrom e G25.81 [facility] [address] [place], [place] [id number] 06/24/2024 R Pradip Vinh [facility] [address] [place], [place] [id number] 07/14/2024 R Pradip Vinh [facility] [address] [place], [place] [id number] 09/07/2024 R Pradip Vinh Restless leg syndrom e G25.81 [facility] [address] [place], [place] [id number] 10/06/2024 R Pradip Vinh ASCVD (arteriosclero tic cardiovascular disease) I25.10 ; Hyperlipidemia E78.5 ; Ischemic cardiomyopathy I25.5 and Essential (primary) hypertension I10 [facility] [address] [place], [place] [id number] 10/06/2024 R Pradip Vinh [facility] [address] [place], [place] [id number] 10/31/2024 Krzysztof Justice Assessments Encounter Date Diagnosis (ICD Code) Assessment Notes Treatment Notes Treatment Clinical Notes Section Notes 11/26/2023 Restless leg syndrome (ICD-10 - G25.81) I explained to the patient that lorazepam and clonazepam are both benzodiazepines and should not be taken together. I prefer clonazepam for restless legs due to longer half-life. Will try increasing her clonazepam dosage to 1 mg at bedtime as well as increasing the ropinirole. 11/26/2023 Encounter for immunization (ICD-10 - Z23) 12/03/2023 Acute UTI (ICD-10 - N39.0) 12/21/2023 Hyperlipidemia (ICD-10 - E78.5) 01/14/2024 Restless leg syndrome (ICD-10 - G25.81) 03/01/2024 Restless leg syndrome (ICD-10 - G25.81) 05/30/2024 Compression fracture of T12 vertebra, initial encounter (ICD-10 - S22.080A) 06/07/2024 Restless leg syndrome (ICD-10 - G25.81) 08/11/2024 ASCVD (arteriosclerotic cardiovascular disease) (ICD-10 - I25.10) 08/11/2024 Restless leg syndrome (ICD-10 - G25.81) 09/07/2024 Restless leg syndrome (ICD-10 - G25.81) 10/06/2024 ASCVD (arteriosclerotic cardiovascular disease) (ICD-10 - I25.10) 10/06/2024 Hyperlipidemia (ICD-10 - E78.5) 08/11/2024 Stage 3 chronic kidney disease, unspecified whether stage 3a or 3b CKD (ICD-10 - N18.30) 12/21/2023 ASCVD (arteriosclerotic cardiovascular disease) (ICD-10 - I25.10) 08/11/2024 Chronic HFrEF (heart failure with reduced ejection fraction) (ICD-10 - I50.22) 10/06/2024 Ischemic cardiomyopathy (ICD-10 - I25.5) 10/06/2024 Essential (primary) hypertension (ICD-10 - I10) 08/11/2024 Cardiomyopathy, unspecified type (ICD-10 - I42.9) 08/11/2024 Hyperlipidemia (ICD-10 - E78.5) 08/11/2024 HTN (hypertension) (ICD-10 - I10) 08/11/2024 BMI 20.0-20.9, adult (ICD-10 - Z68.20) 06/02/2024 Other Discharge summa ry with available lab/diagnostic imaging results obtained and reviewed. Discharge medication list reconciled. Appropriate counseling provided. Moderate Complexity Plan Of Treatment Pending Test Test Name Order Date Modified barium swallow 09/22/2023 Insurance Providers Payer Name Payer Address Payer Phone Subscriber Number Group Number Insured Name Patient Relationship to Insured Coverage Start Date Coverage End Date MEDICARE PART B [address] [address] [place] [address] [id number] BRANDY COHN Self - patient is the insured [facility] [address] [place] [address] [id number] RADHA COHN Spouse - patient is the spouse of the insured Medical (General) History Medical History History ICD Code Hypertension - white coat syndrome Hyperlipidemia Declines health maintenance screening an d immunizations - 09/2018 ASCVD NSTEMI - 01/2023 Ischemic cardiomyopathy - EF = 25% Surgical History Surgery Date(Month/Year) Hysterectomy Heart Cath/ [place]/ 80% LAD with one s tent/ 25% ejection fraction 01/2023 Hospitalization History Reason Date(Month/Year) broken leg [facility] - [facility] 11/17/2023
[2024-11-07 10:57] LABS: VBG HCO3 21.5 mmol/L (23-30); VBG PO2 60.4 mmol/L (28-40)
--- NOTE | 2024-11-07 10:57 | HMH.EDGENADL ---
Discharge Plan Disposition Patient Disposition: Admitted Prescriptions Prescriptions: No Action clonazepam 1 mg tablet 1 mg PO HSP PRN (Reason: Insomnia) Patient Comments: TAKE 1 TABLET BY MOUTH AT BEDTIME NEEDED atorvastatin 40 mg tablet 40 mg PO HS carvedilol 3.125 mg tablet 3.125 mg PO BID aspirin 81 mg tablet,chewable 81 mg PO DAILY clopidogrel 75 mg tablet 75 mg PO DAILY ropinirole 3 mg tablet 3 mg PO HS Patient Comments: TAKE 1 TABLET BY MOUTH 1 TO 3 HOURS BEFORE BEDTIME amlodipine 5 mg tablet 5 mg PO DAILY Patient Comments: TAKE 1 TABLET BY MOUTH ONCE DAILY ondansetron 4 mg tablet,disintegrating 4 mg PO Q8HP PRN (Reason: Nausea And Vomiting) Patient Comments: DISSOLVE 1 TABLET ON THE TONGUE EVERY 8 HOURS sacubitril-valsartan [Entresto] 24-26 mg tablet 1 tab PO BID Patient Comments: TAKE 1 TABLET BY MOUTH TWICE DAILY tramadol 50 mg tablet 50 mg PO Q6HP PRN (Reason: Moderate Pain (Scale Score 5-6)) Clinical Impressions Clinical Impression: Acute hypoxic respiratory failure, Flash pulmonary edema, Pleural effusion on right, Chronic HFrEF (heart failure with reduced ejection fraction), Acute hypercapnic respiratory failure, Hypertensive emergency Print Language Print Language: French Discharge ED Provider: Camron Mcclure General Adult HPI General Chief complaint: Shortness of Breath/Dyspnea Stated complaint: Stroke Time Seen by Provider: 11/07/24 10:47 Mode of Arrival: EMS Source of Information: EMS Description of Symptoms (Recalled from ER Triage Doc. by RN): pt to the ED via ems with an episode of sudden onset of SOB. per EMS the patient was found in a tripod position and gasping for air. on arrival pt was on CPAP and had an O2 sat of 76% but is alert and responding. pt denies any chest pain or recentl illness at this time History of Present Illness HPI narrative: 84-year-old with a history of heart failure with reduced ejection fraction presents today with sudden dyspnea from historical standpoint. Oxygen saturations were 70% on room air patient is minimally responsive but able to answer questions with yes and no she states that she has not had any chest pain or chest discomfort. She was placed on CPAP and route. Had an interventricular conduction delay and route and concern for a STEMI by EMS. No further history able to be obtained from the patient initially. Related Data Home Medications ?Medication ?Instructions ?Recorded ?Confirmed aspirin 81 mg chewable tablet 81 mg PO DAILY 03/11/23 11/07/24 atorvastatin 40 mg tablet 40 mg PO HS 03/11/23 11/07/24 carvedilol 3.125 mg tablet 3.125 mg PO BID 03/11/23 11/07/24 clonazepam 1 mg tablet 1 mg PO HSP PRN Insomnia 12/16/23 11/07/24 clopidogrel 75 mg tablet 75 mg PO DAILY 05/26/24 11/07/24 amlodipine 5 mg tablet 5 mg PO DAILY 11/07/24 11/07/24 ondansetron 4 mg disintegrating 4 mg PO Q8HP PRN Nausea And 11/07/24 11/07/24 tablet Vomiting ropinirole 3 mg tablet 3 mg PO HS 11/07/24 11/07/24 sacubitril 24 mg-valsartan 26 mg 1 tab PO BID 11/07/24 11/07/24 tablet (Entresto) tramadol 50 mg tablet 50 mg PO Q6HP PRN Moderate Pain 11/07/24 11/07/24 (Scale Score 5-6) Allergies Allergy/AdvReac Type Severity Reaction Status Date / Time promethazine Allergy Intermediate severe Verified 05/18/24 18:51 vomiting Penicillins Allergy Unknown Verified 05/18/24 18:51 allergy reaction Sulfa (Sulfonamide Allergy Unknown Verified 05/18/24 18:51 Antibiotics) allergy reaction triprolidine Allergy Unknown Verified 05/18/24 18:51 allergy reaction PFSH PFSH Disclaimer: The information contained in this section may have been updated after the patient was seen, as this information can be updated by other users. Medical History Pyelonephritis GI bleed Chronic constipation CKD (chronic kidney disease) stage 3, GFR 30-59 ml/min Coronary artery disease Ischemic cardiomyopathy ASCVD (arteriosclerotic cardiovascular disease) Systolic heart failure Cardiomyopathy CHF (congestive heart failure) HLD (hyperlipidemia) Hypertension Left bundle branch block (LBBB) determined by electrocardiography NSTEMI (non-ST elevated myocardial infarction) Surgical History History of cardiac cath S/P partial hysterectomy Family History No significant family history Social History Smoking Status: Never smoker alcohol intake: never current occupational status: retired Travel in the last 8 weeks?: None Have you lived/traveled outside [place] in past 30 days?: No Contact w/someone who lives/traveled outside [place] past 30 days?: No Exposure to someone with infectious disease in past 14 days?: No Do you have a fever (greater than 100.4 F or 38 C)?: No Have you tested positive for COVID-19?: No Exposed to someone with COVID-19 in past 14 days?: No Do you have a sore throat?: No Do you have a cough?: No Do you have any weakness?: No Do you have any diarrhea?: No Are you experiencing any unusual bleeding?: No Do you have any muscle aches/pain?: No Do you have any abdominal pain?: No Are you experiencing loss of taste or smell?: No Other Medical History Have you received the Flu Vaccine for this season: No Have you received the Pneumonia Vaccine: No ROS Obtained: Yes All systems reviewed & no additional complaints except as documented Physical Exam General General appearance: lethargic (Very somnolent and in respiratory distress) Respiratory Respiratory exam: Present other (Placed on CPAP in the emergency department oxygen saturations were initially in the 70s and corrected into the mid and upper 90s patient is in respiratory distress with tachypnea no wheezing noted or prolonged expiratory phase) Cardiovascular Cardiovascular exam: Present regular rate Neurological Exam Neurological exam: Present alert and oriented X3 Medical Decision Making Medical Records Screening: Per USPSTF and CDC recommendations, given the prevalence of disease in our region, it is our hospital?s policy to screen for HIV and viral Hepatitis for all patients aged 18 and over and those with ongoing risk factors. Zbigniew Inquiry Pt receiving controlled substance: No Vital Signs: 11/07/24 10:38 11/07/24 10:49 11/07/24 10:55 Temperature 97.6 F Temperature Source Axillary Pulse Rate Pulse Rate [Left Radial] 126 H Respiratory Rate 29 H Blood Pressure Blood Pressure [Right Arm] 163/92 H Blood Pressure Mean Blood Pressure Mean [Right Arm] 115 Blood Pressure Source [Right Arm] Automatic Cuff Blood Pressure Position [Right Arm] Sitting 02 Sat by Pulse Oximetry 76 L Oxygen Delivery Method CPAP Fraction of Inspired Oxygen 40 40 11/07/24 11:16 11/07/24 11:30 Temperature Temperature Source Pulse Rate 91 H 91 H Pulse Rate [Left Radial] Respiratory Rate Blood Pressure 135/66 144/70 H Blood Pressure [Right Arm] Blood Pressure Mean 89 84 Blood Pressure Mean [Right Arm] Blood Pressure Source [Right Arm] Blood Pressure Position [Right Arm] 02 Sat by Pulse Oximetry 92 L 92 L Oxygen Delivery Method Fraction of Inspired Oxygen Lab Data Lab results reviewed: Yes I reviewed the patient's lab results. Lab Results 11/07/24 10:20: WBC 14.2 H, RBC 3.47 L, Hgb 8.1 L, Hct 27.6 L, MCV 79.5 L, MCH 23.3 L, MCHC 29.3 L, RDW 17.2, Plt Count 421, MPV 9.5, Neut % (Auto) 65.9, Lymph % (Auto) 24.3, Treasure % (Auto) 6.5, Eos % (Auto) 1.6, Baso % (Auto) 1.3, Neut # (Auto) 9.3 H, Lymph # (Auto) 3.4, Treasure # (Auto) 0.9, Eos # (Auto) 0.2, Baso # (Auto) 0.2, Sodium 140, Potassium 3.6, Chloride 106, Carbon Dioxide 22, Anion Gap 15.6 H, BUN 16, Creatinine 1.10 H, Estimated Creat Clear 38, Estimated GFR 47 L, Est GFR ( Amer) 57 L, Glucose 270 H, Calcium 8.4, Magnesium 1.8, Total Bilirubin 0.9, AST 28, ALT 25, Alkaline Phosphatase 102, Troponin I < 0.01, NT-Pro-B Natriuret Pep 11273 H, Total Protein 7.5, Albumin 4.0, Globulin 3.5 H, Albumin/Globulin Ratio 1.1, TSH 3.28 11/07/24 10:48: VBG pH 7.16 L, VBG pCO2 61.2 H, VBG pO2 60.4 H, VBG HCO3 21.5 L, VBG Total CO2 23.4, VBG O2 Saturation 82.2 H, VBG Base Excess -7.1 L, VBG Lactic Acid 5.2 H 11/07/24 10:20 11/07/24 10:20 Orders (Tests/Meds): ED MEDICATIONS Generic Name Dose Route Start Last Admin Trade Name Freq PRN Reason Stop Dose Admin Furosemide 40 mg 11/07/24 12:32 Furosemide 40mg/4ml Vial IV 11/07/24 12:33 ONCE ONE Nitroglycerin/Dextrose 250 mls @ 1.5 mls/hr 11/07/24 11:00 Nitroglycerin 50mg/250ml D5w IV 12/07/24 10:59 .Q24H SHAINA Protocol 5 MCG/MIN Discontinued Medications Generic Name Dose Route Start Last Admin Trade Name Freq PRN Reason Stop Dose Admin Iopamidol 75 ml 11/07/24 12:23 11/07/24 12:24 Iopamidol-370 (76%);100ml Bottle IV 11/07/24 12:24 75 ml ONCE ONE Administration Sodium Chloride 10 ml 11/07/24 12:23 11/07/24 12:24 Sodium Chloride 0.9% 10ml Syr (Rad Only) IV 11/07/24 12:24 10 ml ONCE ONE Administration Sodium Chloride 50 ml 11/07/24 12:24 11/07/24 12:24 0.9 % Sodium Chloride 50 Ml Vial IV 11/07/24 12:25 50 ml ONCE ONE Administration ORDERS Category Date Time Status CT angio chest PE protocol Stat Cat Scan 11/07/24 10:48 Taken CXR --portable [XR chest portable] Stat Exams 11/07/24 10:48 Taken POCUS Point of Care (ER Only) Stat Exams 11/07/24 10:39 Completed BNP [NT Pro Brain Natriuretic Pep.] Stat Lab 11/07/24 10:20 Completed CBC w/Auto Diff [Complete Blood Count Auto Diff] Stat Lab 11/07/24 10:20 Completed CMP [Comprehensive Metabolic Panel] Stat Lab 11/07/24 10:20 Completed Lactate Venous Stat Lab 11/07/24 10:47 Ordered Magnesium Stat Lab 11/07/24 10:20 Completed TSH [Thyroid Stimulating Hormone] Stat Lab 11/07/24 10:20 Completed Trop I [Troponin I] Stat Lab 11/07/24 10:20 Completed Troponin I Q3H Lab 11/07/24 14:00 Ordered Troponin I Q3H Lab 11/07/24 17:00 Ordered Venous Blood Gas Stat RT 11/07/24 10:48 Completed Medical Decision Narrative: 84-year-old with above history and physical and respiratory distress and hypoxic respiratory failure bedside ultrasound demonstrates profoundly depressed EF which is consistent with old echoes and pulmonary edema and pleural effusion she is also significant hypertensive. Given the fact this started suddenly this is most likely flash pulmonary edema. Patient was placed on CPAP initially and then BiPAP once her gas showed that she had hypercapnic respiratory failure and acidemia associated with that and also started on nitroglycerin infusion. She is not euvolemic at the moment we will hold off in any diuresis until she is out of her sympathetic surge. Will get a CT PE and workup for other pathology at the moment. Patient is full code wants to be intubated if we get to that point but she is starting to turn around on this initial intervention. EKG was performed which I personally interpreted shows ventricular to 129 sinus tachycardia there is an interventricular conduction delay that is consistent with old EKGs no obvious STEMI. Frequent PVCs. On multiple reassessments patient dramatically improving from a mental status standpoint and from an oxygenation and her breathing standpoint. She is still somewhat somnolent but her mental status is dramatically improved we will keep her on BiPAP at this point from a ventilation standpoint. Have not repeated her blood gas but she will be ultimately admitted to Dr. Carbajal on behalf of Dr. Justice. Chest x-ray was performed to person interpreted shows interstitial infiltrates. Given the fact that started suddenly this is not consistent with pneumonia. CT scan performed I personally interpreted which shows bilateral pleural effusions and pulmonary edema and patchy infiltrates consistent with edema from interpretation this is not consistent with consolidation such as pneumonia again her symptoms are not clinically consistent with this especially given the fact that she dramatically improved with BiPAP. No obvious pulmonary embolism noted. Patient is now much more stable and likely out of her sympathetic surge if she was given IV Lasix for diuresis. Patient admitted for further evaluation and management. Procedures Miscellaneous Procedure Procedure Performed: Limited cardiac ultrasound Indication: Dyspnea Identified structures: The heart was visualized in the parasternal long axis, parastenal short axis, apical four chamber and subxyphiod views. The IVC was visualized in the short axis and long axis at its entry into the right atrium. Findings: LVEF is profoundly down globally no severe right heart strain noted no pericardial effusion Impression: Severely depressed LVEF as stated above Images were saved to permanent archive The study was technically adequate CPT: 23082-98 This study was performed by me, and I personally interpreted all images/videos. Based on my clinical judgement, these images were adequate and did not necessitate further imaging. Limited lung ultrasound A focused ultrasound exam of the pleural spaces was performed to evaluate for pneumothorax, pulmonary edema, pleural effusion and/or consolidation. The ultrasound was performed with the following indications, as noted in the H&P: Dyspnea Identified structures: Right and left thoracic cavities were examined. Findings: Lung sliding present throughout there are diffuse B-lines in all lung kinney and a right sided pleural effusion Impression: Diffuse pulmonary edema and right-sided pleural effusion Images were saved to permanent archive The study was technically adequate CPT 86564-15 This study was performed by me, and I personally interpreted all images/videos. Based on my clinical judgement, these images were adequate and did not necessitate further imaging. Critical Care Critical Care Time Critical Care Time: Yes Attestation: On 11/07/24, the high probability of a clinically significant, sudden or life threatening deterioration of the following system(s) required my full and direct attention, intervention and personal management. The time I documented below is in addition to time spent performing reported procedures but includes the following listed in this critical care notation. Total Time Total Critical Care Time: 65
[2024-11-07 10:58] LABS: Lactate Venous 5.2 mmol/L (0.4-2.0); VBG PCO2 61.2 mmol/L (35-51); VBG PH 7.16 mmol/L (7.31-7.41)
[2024-11-07 11:25] LABS: Alanine Aminotransferase 25 U/L (12-78); Albumin Level 4.0 g/dl (3.5-5.0); Albumin/Globulin Ratio 1.1 (1.1-1.8); Alkaline Phosphatase 102 U/L (38-126); Anion Gap 15.6 mEq/L (5-15); Aspartate Amino Transferase 28 U/L (14-36); Bilirubin,Total 0.9 mg/dl (0.2-1.3); Blood Urea Nitrogen 16 mg/dl (7-17); Calcium 8.4 mg/dl (8.4-10.2); Carbon Dioxide 22 mmol/L (22.0-30.0); Chloride 106 mmol/L (98-107); Creatinine Clearance Estimated 38 mL/min (50-200); Creatinine,Serum 1.10 mg/dl (0.52-1.04); Estimated Glomerular Filt Rate 47 ml/min (>60); GFR (African American) 57 ML/MIN (>60); Globulin 3.5 g/dL (1.3-3.2); Glucose 270 mg/dl (74-100); Magnesium 1.8 mg/dl (1.6-2.3); Potassium 3.6 mmoL/L (3.5-5.1); Sodium 140 mmol/L (136-145); Total Protein,Serum 7.5 g/dl (6.3-8.2)
[2024-11-07 11:37] LABS: NT Pro Brain Natriuretic Pep. 19000 pg/mL (0-450)
--- NOTE | 2024-11-07 11:42 | HMH.PHAINT1 ---
Pharmacy Intervention Comments: MEDICATION RECONCILIATION COMPLETED ON PATIENT USING EXTERNAL FILL HISTORY FROM PHARMACY AND CARMELA REPORT. -KRISTEN HORNE, BENNYD
[2024-11-07 11:56] LABS: Thyroid Stimulating Hormone 3.28 uIU/mL (0.465-4.68)
[2024-11-07 11:58] LABS: Troponin I < 0.01 ng/ml (0.00-0.034)
--- NOTE | 2024-11-07 12:14 | PC.NURSE ---
Dr. Mcclure speaking with Dr. Carbajal.
[2024-11-07] MEDS: IOPAMIDOL-370 (76%);100ML BOTTLE 75 ML IV (12:24)
[2024-11-07] MEDS: SODIUM CHLORIDE 0.9% 10ML SYR (RAD ONLY) 10 ML IV (12:24)
[2024-11-07] MEDS: 0.9 % SODIUM CHLORIDE 50 ML VIAL IV (12:24)
[2024-11-07] MEDS: FUROSEMIDE 40MG/4ML VIAL 40 MG IV (14:03)
[2024-11-07 14:57] LABS: Reflex Lactic Add Lactic Reflex
[2024-11-07 15:26] LABS: Troponin I 0.04 ng/ml (0.00-0.034)
[2024-11-07 16:49] LABS: Lactate Venous 1.4 mmol/L (0.4-2.0); VBG HCO3 27.6 mmol/L (23-30); VBG PCO2 39.7 mmol/L (35-51); VBG PH 7.46 mmol/L (7.31-7.41); VBG PO2 51.4 mmol/L (28-40)
[2024-11-07] MEDS: TRAMADOL 50MG TABLET 50 MG PO (17:00)
[2024-11-07 17:03] LABS: Lactic Acid Follow Up (RFLX 1) 1.1 mmol/L (0.7-2.1)
--- NOTE | 2024-11-07 17:13 | PC.NURSE ---
Pt placed on 2 L O2 via nasal cannula, SPO2 maintaing > 95%. Bailey Diaz APRN @ bedside.
[2024-11-07 17:16] LABS: Troponin I 0.06 ng/ml (0.00-0.034)
--- NOTE | 2024-11-07 17:25 | PC.NURSE ---
Bailey Diaz APRN @ bedside. Made aware of pt's troponin trending up. No new orders @ this time.
--- NOTE | 2024-11-07 17:31 | EXP.HP ---
History of Present Illness *Admission Date: 11/07/24 *Reason for visit:: Shortness of breath *History of present illness: Ms. Najera is an 84-year-old female with with a history of hypertension, hyperlipidemia, ASCVD, NSTEMI in 2022, and ischemic cardiomyopathy with an ejection fraction of 25% who presented to [facility] emergency room for evaluation after experiencing sudden onset of extreme shortness of breath. Patient states she had had no previous problems this morning until this occurred. She also described a good day yesterday. She denies having any associated chest pain, palpitations or other respiratory symptoms. EMS found her in a tripod position and gasping for air on their arrival. O2 sat was 76%. She was placed on CPAP enroute to the hospital. With her evaluation in the emergency room she was found to be hypoxic in hypercapnic respiratory failure with acidosis. The patient dramatically improved from a mental status point with oxygenation. She remained somnolent and she was put on BiPAP. CTA of the chest revealed multifocal airspace opacities in the right lung consistent with pneumonia and no pulmonary embolism. Moderate bilateral pleural effusions which were noted to be increased since the prior exam of 05/18/2024. Chest x-ray revealed mild CHF.Lactate did improve to 1.1. Troponin I increased to 0.04 and then 0.06. ABGs also improved with venous blood gas showing a pH of 7.46 and a pO2 of 51.4. With this exam patient states she feels much better. They have removed her BiPAP and she is on O2 at 3 L/min. She denies any chest pain and shortness of breath. She states she never had a fever or cold symptoms at home. She had been eating and drinking well. She was been able to ambulate at home without difficulty. She does have a sitter 15/09. [facility] Disclaimer: The information contained in this section may have been updated after the patient was seen, as this information can be updated by other users. Medical History Pyelonephritis GI bleed Chronic constipation CKD (chronic kidney disease) stage 3, GFR 30-59 ml/min Coronary artery disease Ischemic cardiomyopathy ASCVD (arteriosclerotic cardiovascular disease) Systolic heart failure Cardiomyopathy CHF (congestive heart failure) HLD (hyperlipidemia) Hypertension Left bundle branch block (LBBB) determined by electrocardiography NSTEMI (non-ST elevated myocardial infarction) Surgical History History of cardiac cath S/P partial hysterectomy Family History No significant family history Social History Smoking Status: Never smoker alcohol intake: never current occupational status: retired Travel in the last 8 weeks?: None Have you lived/traveled outside [place] in past 30 days?: No Contact w/someone who lives/traveled outside US past 30 days?: No Exposure to someone with infectious disease in past 14 days?: No Do you have a fever (greater than 100.4 F or 38 C)?: No Have you tested positive for COVID-19?: No Exposed to someone with COVID-19 in past 14 days?: No Do you have a sore throat?: No Do you have a cough?: No Do you have any weakness?: No Do you have any diarrhea?: No Are you experiencing any unusual bleeding?: No Do you have any muscle aches/pain?: No Do you have any abdominal pain?: No Are you experiencing loss of taste or smell?: No Other Medical History Have you received the Flu Vaccine for this season: No Have you received the Pneumonia Vaccine: No Review of Systems Constitutional Constitutional: Denies body ache(s), Denies fever(s), Denies frequent falls and Denies headache(s) Eyes Eyes: Denies change in vision ENT Ears, Nose, Mouth, and Throat: Denies headache(s), Denies nasal congestion, Denies post nasal drip and Denies sore throat *Cardiovascular Cardiovascular: Denies chest pain, Reports dyspnea, Denies irregular heart rhythm and Denies leg edema *Respiratory Respiratory: Denies chest congestion, Denies cough and Reports dyspnea *Gastrointestinal Gastrointestinal: Denies abdominal pain, Reports constipation, Denies diarrhea, Denies loose stools, Denies nausea and Denies vomiting *Genitourinary Genitourinary: Denies difficulty voiding, Denies dysuria and Reports genital lesions *Musculoskeletal Musculoskeletal: Denies arthralgias *Neurologic Neurologic: Reports confusion, Denies frequent falls and Denies headache(s) Psychiatric Psychiatric: Reports confusion Meds Home Medications and Allergies Home Medications ?Medication ?Instructions ?Recorded ?Confirmed ?Type aspirin 81 mg chewable tablet 81 mg PO DAILY 03/11/23 11/07/24 History atorvastatin 40 mg tablet 40 mg PO HS 03/11/23 11/07/24 History carvedilol 3.125 mg tablet 3.125 mg PO BID 03/11/23 11/07/24 History clonazepam 1 mg tablet 1 mg PO HSP PRN Insomnia 12/16/23 11/07/24 History clopidogrel 75 mg tablet 75 mg PO DAILY 05/26/24 11/07/24 History amlodipine 5 mg tablet 5 mg PO DAILY 11/07/24 11/07/24 History ondansetron 4 mg disintegrating 4 mg PO Q8HP PRN Nausea And 11/07/24 11/07/24 History tablet Vomiting ropinirole 3 mg tablet 3 mg PO HS 11/07/24 11/07/24 History sacubitril 24 mg-valsartan 26 mg 1 tab PO BID 11/07/24 11/07/24 History tablet (Entresto) tramadol 50 mg tablet 50 mg PO Q6HP PRN Moderate Pain 11/07/24 11/07/24 History (Scale Score 5-6) New Prescriptions to Start Prescriptions: Allergies Allergy/AdvReac Type Severity Reaction Status Date / Time promethazine Allergy Intermediate severe Verified 11/07/24 14:15 vomiting Penicillins Allergy Unknown Verified 11/07/24 14:15 allergy reaction Sulfa (Sulfonamide Allergy Unknown Verified 11/07/24 14:15 Antibiotics) allergy reaction triprolidine Allergy Unknown Verified 11/07/24 14:15 allergy reaction Exam Data for Last 24 hours Vital signs and Labs for Last 24 Hours: Temp Pulse Resp BP Pulse Ox O2 Del Method FiO2 98.1 F 95 H 16 161/78 H 99 CPAP 40 11/07/24 16:02 11/07/24 16:02 11/07/24 16:02 11/07/24 16:02 11/07/24 16:02 11/07/24 17:00 11/07/24 15:08 Laboratory Results - last 24 hr 11/07/24 10:20: WBC 14.2 H, RBC 3.47 L, Hgb 8.1 L, Hct 27.6 L, MCV 79.5 L, MCH 23.3 L, MCHC 29.3 L, RDW 17.2, Plt Count 421, MPV 9.5, Neut % (Auto) 65.9, Lymph % (Auto) 24.3, [place] % (Auto) 6.5, Eos % (Auto) 1.6, Baso % (Auto) 1.3, Neut # (Auto) 9.3 H, Lymph # (Auto) 3.4, [place] # (Auto) 0.9, Eos # (Auto) 0.2, Baso # (Auto) 0.2, Sodium 140, Potassium 3.6, Chloride 106, Carbon Dioxide 22, Anion Gap 15.6 H, BUN 16, Creatinine 1.10 H, Estimated Creat Clear 38, Estimated GFR 47 L, Est GFR ( Amer) 57 L, Glucose 270 H, Calcium 8.4, Magnesium 1.8, Total Bilirubin 0.9, AST 28, ALT 25, Alkaline Phosphatase 102, Troponin I < 0.01, NT-Pro-B Natriuret Pep 41553 H, Total Protein 7.5, Albumin 4.0, Globulin 3.5 H, Albumin/Globulin Ratio 1.1, TSH 3.28 11/07/24 10:48: VBG pH 7.16 L, VBG pCO2 61.2 H, VBG pO2 60.4 H, VBG HCO3 21.5 L, VBG Total CO2 23.4, VBG O2 Saturation 82.2 H, VBG Base Excess -7.1 L, VBG Lactic Acid 5.2 H 11/07/24 14:38: Troponin I 0.04 H 11/07/24 16:43: VBG pH 7.46 H, VBG pCO2 39.7, VBG pO2 51.4 H, VBG HCO3 27.6, VBG Total CO2 28.8 H, VBG O2 Saturation 87.2 H, VBG Base Excess 3.8 H, VBG Lactic Acid 1.4, Lactate 1.1, Troponin I 0.06 H I & O for Last 24 hours: Intake & Output 11/05/24 11/06/24 11/07/24 11/08/24 11:59 11:59 11:59 11:59 Output Total 1500 / 1500 Balance -1500 / -1500 Weight 140 lb 134 lb 8 oz Constitutional Constitutional: no acute distress Comments: Has just had BiPAP removed and is very conversant. *Routine HEENT Exam Head: Present normocephalic and atraumatic Eye: Present PERRL; Absent conjunctival icterus, scleral injection or conjunctivae pink ENT: Present mucous membranes moist and oropharynx clear; Absent dentition normal *Routine Neck Exam Neck: Present supple and full ROM; Absent carotid bruit, lymphadenopathy or thyromegaly *Routine Respiratory Exam Respiratory: Present crackles (Bilateral crackles anteriorly and posteriorly throughout. Scattered soft expiratory wheezing throughout) *Routine Cardiovascular Exam Cardiovascular: Present RRR (Monitor showing sinus rhythm with occasional PVC) *Routine Abdominal Exam Abdominal: Present soft and normoactive bowel sounds; Absent tenderness *Routine Rectal Exam Rectal:: deferred *Routine Genitalia Exam Genitalia:: deferred *Routine Extremities Exam Extremities: Present edema, full ROM and pulses intact; Absent calf tenderness *Routine Neurological Exam Neurological: Present alert and oriented X3 Assessment and Plan *Assessment and plan (1) Flash pulmonary edema: Status: Acute Category: Medical Code(s): J81.0 - Acute pulmonary edema (2) Hypertensive emergency: Status: Acute Category: Medical Code(s): I16.1 - Hypertensive emergency (3) Acute hypercapnic respiratory failure: Status: Acute Category: Medical Code(s): J96.02 - Acute respiratory failure with hypercapnia (4) Acute hypoxic respiratory failure: Status: Acute Category: Medical Code(s): J96.01 - Acute respiratory failure with hypoxia (5) Physical deconditioning: Status: Acute Category: Medical Code(s): R53.81 - Other malaise (6) Anemia: Status: Acute Qualifiers: Anemia type: iron deficiency Iron deficiency anemia type: unspecified iron deficiency Qualified Code(s): D50.9 - Iron deficiency anemia, unspecified Category: Medical Code(s): D64.9 - Anemia, unspecified (7) Constipation: Status: Acute Category: Medical Code(s): K59.00 - Constipation, unspecified (8) HTN (hypertension): Status: Acute Qualifiers: Hypertension type: unspecified Qualified Code(s): I10 - Essential (primary) hypertension Category: Medical Code(s): I10 - Essential (primary) hypertension (9) Elevated troponin I level: Status: Acute Category: Medical Code(s): R79.89 - Other specified abnormal findings of blood chemistry (10) Bilateral pleural effusion: Status: Acute Category: Medical Code(s): J90 - Pleural effusion, not elsewhere classified (11) Chronic HFrEF (heart failure with reduced ejection fraction): Status: Acute Category: Medical Code(s): I50.22 - Chronic systolic (congestive) heart failure Plan home meds reordered; monitor respiratory status; cardiology and pulmonary consults; will continue to diuresis as needed; added spironolactone
[2024-11-07] MEDS: FUROSEMIDE 20 MG/2 ML VIAL IV (18:56)
[2024-11-07] MEDS: ROPINIROLE 1MG TABLET 3 MG PO (20:23)
[2024-11-07] MEDS: ATORVASTATIN 40MG TABLET 40 MG PO (20:23)
[2024-11-07] MEDS: SACUBITRIL/VALSARTAN 24-26MG TABLET 1 EACH PO (20:23)
[2024-11-07 20:41] LABS: Hepatitis C Ab Qual. W/ RFX NEGATIVE (Negative)
[2024-11-08] VITALS (53 sets, daily range): BP systolic 66–150; BP diastolic 42–77; PULSE 55–79; RESP 15–27; TEMP 36.3–37.5; O2SAT 85–100; BMI 18.9
[2024-11-08] MEDS: TRAMADOL 50MG TABLET 50 MG PO (01:58)
[2024-11-08 05:44] LABS: Hematocrit 22.7 % (37.0-47.0); Immature Granulocytes % 0.4 %; Mean Corpuscular HGB Conc 30.4 g/dL (31.8-35.4); Mean Corpuscular Hemoglobin 23.1 pg (27.0-31.2); Mean Corpuscular Volume 75.9 fl (81-99); Nucleated Red Blood Cells % 0 %; Platelet Count 265 K/mm3 (142-424); Red Blood Count 2.99 M/mm3 (4.20-5.40); Red Cell Distribution Width-SD 46.8 fL; White Blood Count 8.1 K/mm3 (4.8-10.8)
[2024-11-08 05:56] LABS: Anion Gap 6.8 mEq/L (5-15); Blood Urea Nitrogen 15 mg/dl (7-17); Calcium 8.0 mg/dl (8.4-10.2); Carbon Dioxide 31 mmol/L (22.0-30.0); Chloride 105 mmol/L (98-107); Creatinine Clearance Estimated 40 mL/min (50-200); Creatinine,Serum 0.90 mg/dl (0.52-1.04); Estimated Glomerular Filt Rate 60 ml/min (>60); GFR (African American) 72 ML/MIN (>60); Glucose 96 mg/dl (74-100); Sodium 140 mmol/L (136-145)
[2024-11-08 05:57] LABS: Hemoglobin 6.9 g/dL (12.2-16.2)
[2024-11-08 06:00] LABS: Potassium 2.8 mmoL/L (3.5-5.1)
--- NOTE | 2024-11-08 06:18 | EXP.ACUTE.PN ---
Subjective *Date: 11/08/24 *Time: 06:18 Interval history: Hgb has declined from 8.1 to 6.9 this AM. Potassium was 3.6 on admission and now is 2.8. Will give 2 units PRBC. Anemia studies prior to transfusion. Medical Exam Vital signs and Labs for Last 24 Hours: Vital Signs Temp Pulse Pulse Resp BP BP Pulse Ox 11/08/24 06:00 61 20 128/57 L 97 11/08/24 05:00 11/08/24 05:00 55 L 20 112/49 L 100 11/08/24 04:00 66 22 112/49 L 100 11/08/24 04:00 66 11/08/24 04:00 69 20 112/52 L 100 11/08/24 03:00 11/08/24 03:00 68 18 125/56 L 100 11/08/24 02:28 11/08/24 02:00 75 20 89/67 L 91 L 11/08/24 01:00 11/08/24 01:00 68 18 66/57 L 99 11/08/24 00:00 69 11/08/24 00:00 99.5 F 61 105/44 L 100 11/07/24 23:46 11/07/24 23:00 11/07/24 23:00 66 20 106/43 L 94 L 11/07/24 22:01 65 16 109/42 L 97 11/07/24 21:00 85 21 125/51 L 98 11/07/24 20:43 11/07/24 20:42 95 H 20 143/67 H 97 11/07/24 20:00 85 11/07/24 20:00 97 11/07/24 20:00 98.6 F 94 H 26 H 143/67 H 98 11/07/24 18:39 11/07/24 18:00 86 22 141/65 H 93 L 11/07/24 17:05 97 11/07/24 17:00 78 20 144/85 H 98 11/07/24 17:00 11/07/24 16:02 98.1 F 95 H 16 161/78 H 99 11/07/24 16:00 95 H 11/07/24 15:37 97.9 F 98 H 24 154/78 H 100 11/07/24 15:08 11/07/24 15:00 88 20 150/76 H 100 11/07/24 15:00 11/07/24 14:40 89 24 100 11/07/24 14:13 99 H 11/07/24 13:49 98.6 F 116 H 28 H 160/89 H 11/07/24 12:46 114 H 28 H 170/89 H 98 11/07/24 12:31 120 H 28 H 181/103 H 96 11/07/24 12:00 99 H 26 H 148/84 H 98 11/07/24 11:46 99 H 26 H 150/75 H 98 11/07/24 11:30 91 H 144/70 H 92 L 11/07/24 11:16 91 H 135/66 92 L 11/07/24 10:55 11/07/24 10:49 11/07/24 10:38 97.6 F 126 H 29 H 163/92 H 76 L O2 Del Method O2 Flow Rate FiO2 11/08/24 06:00 Nasal Cannula 3 11/08/24 05:00 BiPAP 11/08/24 05:00 BiPAP 11/08/24 04:00 BiPAP 11/08/24 04:00 11/08/24 04:00 BiPAP 20 40 11/08/24 03:00 BiPAP 11/08/24 03:00 BiPAP 11/08/24 02:28 40 11/08/24 02:00 BiPAP 20 40 11/08/24 01:00 BiPAP 11/08/24 01:00 BiPAP 11/08/24 00:00 11/08/24 00:00 BiPAP 20 40 11/07/24 23:46 40 11/07/24 23:00 Nasal Cannula 3 11/07/24 23:00 Nasal Cannula 3 11/07/24 22:01 Nasal Cannula 3 11/07/24 21:00 Nasal Cannula 3 11/07/24 20:43 Nasal Cannula 3 11/07/24 20:42 Nasal Cannula 3 11/07/24 20:00 11/07/24 20:00 Nasal Cannula 3 11/07/24 20:00 Nasal Cannula 3 11/07/24 18:39 Nasal Cannula 3 11/07/24 18:00 Nasal Cannula 3 11/07/24 17:05 Nasal Cannula 3 11/07/24 17:00 CPAP 11/07/24 17:00 CPAP 11/07/24 16:02 BiPAP 11/07/24 16:00 11/07/24 15:37 BiPAP 11/07/24 15:08 40 11/07/24 15:00 BiPAP 11/07/24 15:00 CPAP 11/07/24 14:40 CPAP 40 11/07/24 14:13 11/07/24 13:49 Room Air 11/07/24 12:46 11/07/24 12:31 11/07/24 12:00 11/07/24 11:46 11/07/24 11:30 11/07/24 11:16 11/07/24 10:55 40 11/07/24 10:49 40 11/07/24 10:38 CPAP Intake and Output 11/07/24 11/08/24 11/08/24 19:59 03:59 11:59 Intake Total 120 / 120 Output Total 1850 / 4150 2300 / 4150 Balance -1730 / -4030 -2300 / -4030 Intake: Intake, Oral Amount 120 / 120 Output: Output, Urine Amount 1850 / 4150 2300 / 4150 Other: Number of Unmeasured Voids 1 1 Weight 134 lb 8 oz Patient Weight 11/08/24 11:59 Weight 134 lb 8 oz Laboratory Results - last 24 hr 11/07/24 10:20: WBC 14.2 H, RBC 3.47 L, Hgb 8.1 L, Hct 27.6 L, MCV 79.5 L, MCH 23.3 L, MCHC 29.3 L, RDW 17.2, Plt Count 421, MPV 9.5, Neut % (Auto) 65.9, Lymph % (Auto) 24.3, [place] % (Auto) 6.5, Eos % (Auto) 1.6, Baso % (Auto) 1.3, Neut # (Auto) 9.3 H, Lymph # (Auto) 3.4, [place] # (Auto) 0.9, Eos # (Auto) 0.2, Baso # (Auto) 0.2, Sodium 140, Potassium 3.6, Chloride 106, Carbon Dioxide 22, Anion Gap 15.6 H, BUN 16, Creatinine 1.10 H, Estimated Creat Clear 38, Estimated GFR 47 L, Est GFR ( Amer) 57 L, Glucose 270 H, Calcium 8.4, Magnesium 1.8, Total Bilirubin 0.9, AST 28, ALT 25, Alkaline Phosphatase 102, Troponin I < 0.01, NT-Pro-B Natriuret Pep 42256 H, Total Protein 7.5, Albumin 4.0, Globulin 3.5 H, Albumin/Globulin Ratio 1.1, TSH 3.28, HIV Ag/Ab Combo Qual Negative 11/07/24 10:48: VBG pH 7.16 L, VBG pCO2 61.2 H, VBG pO2 60.4 H, VBG HCO3 21.5 L, VBG Total CO2 23.4, VBG O2 Saturation 82.2 H, VBG Base Excess -7.1 L, VBG Lactic Acid 5.2 H 11/07/24 14:38: Troponin I 0.04 H 11/07/24 16:43: VBG pH 7.46 H, VBG pCO2 39.7, VBG pO2 51.4 H, VBG HCO3 27.6, VBG Total CO2 28.8 H, VBG O2 Saturation 87.2 H, VBG Base Excess 3.8 H, VBG Lactic Acid 1.4, Lactate 1.1, Troponin I 0.06 H 11/07/24 18:52: HCV Ab EMETERIO w/Rflx PCR Qn Negative 11/08/24 04:35: WBC 8.1 D, RBC 2.99 L, Hgb 6.9 L, Hct 22.7 L, MCV 75.9 L, MCH 23.1 L, MCHC 30.4 L, RDW 17.0, Plt Count 265 D, MPV 9.4, Neut % (Auto) 72.3, Lymph % (Auto) 14.9, [place] % (Auto) 10.5 H, Eos % (Auto) 0.9, Baso % (Auto) 1.0, Neut # (Auto) 5.9, Lymph # (Auto) 1.2, [place] # (Auto) 0.9, Eos # (Auto) 0.1, Baso # (Auto) 0.1, Sodium 140, Potassium 2.8 L* D, Chloride 105, Carbon Dioxide 31 H, Anion Gap 6.8, BUN 15, Creatinine 0.90, Estimated Creat Clear 40, Estimated GFR 60, Est GFR ( Amer) 72 D, Glucose 96 D, Calcium 8.0 L I & O for Labs for Last 24 Hours: Intake & Output 11/05/24 11/06/24 11/07/24 11/08/24 11:59 11:59 11:59 11:59 Intake Total 120 / 120 Output Total 4150 / 4150 Balance -4030 / -4030 Weight 140 lb 134 lb 8 oz Assessment and Plan *Assessment and plan (1) Anemia: Status: Acute Qualifiers: Anemia type: iron deficiency Iron deficiency anemia type: unspecified iron deficiency Qualified Code(s): D50.9 - Iron deficiency anemia, unspecified Category: Medical Code(s): D64.9 - Anemia, unspecified (2) Flash pulmonary edema: Status: Acute Category: Medical Code(s): J81.0 - Acute pulmonary edema (3) Acute hypoxic respiratory failure: Status: Acute Category: Medical Code(s): J96.01 - Acute respiratory failure with hypoxia Plan As above.
[2024-11-08 06:38] LABS: Reticulocyte % (Auto) 1.4 % (0.9-3.2)
--- NOTE | 2024-11-08 08:18 | EXP.PN ---
Subjective *Date: 11/08/24 *Time: 08:46 Interval history: Patient did not sleep well. Her biggest complaint is her legs with paresthesias. She states she needs a new plan. She denies chest pain and shortness of breath. She remains on O2 at 3 L and saturations are good with this. This morning labs show a hemoglobin of 6.9 hematocrit 22.7 and a platelet count of 265,000. White count is normalized today at 8.1. Potassium noted to be low at 2.8 with sodium of 140; BUN is 15 and creatinine is 0.9. Exam Data for Last 24 hours Vital signs and Labs for Last 24 Hours: Temp Pulse Resp BP Pulse Ox O2 Del Method O2 Flow Rate 97.7 F 63 21 140/61 100 Nasal Cannula 3 11/08/24 08:00 11/08/24 08:00 11/08/24 08:00 11/08/24 08:00 11/08/24 08:00 11/08/24 08:00 11/08/24 08:00 FiO2 40 11/08/24 05:00 Laboratory Results - last 24 hr 11/07/24 10:20: WBC 14.2 H, RBC 3.47 L, Hgb 8.1 L, Hct 27.6 L, MCV 79.5 L, MCH 23.3 L, MCHC 29.3 L, RDW 17.2, Plt Count 421, MPV 9.5, Neut % (Auto) 65.9, Lymph % (Auto) 24.3, [place] % (Auto) 6.5, Eos % (Auto) 1.6, Baso % (Auto) 1.3, Neut # (Auto) 9.3 H, Lymph # (Auto) 3.4, [place] # (Auto) 0.9, Eos # (Auto) 0.2, Baso # (Auto) 0.2, Sodium 140, Potassium 3.6, Chloride 106, Carbon Dioxide 22, Anion Gap 15.6 H, BUN 16, Creatinine 1.10 H, Estimated Creat Clear 38, Estimated GFR 47 L, Est GFR ( Amer) 57 L, Glucose 270 H, Calcium 8.4, Magnesium 1.8, Total Bilirubin 0.9, AST 28, ALT 25, Alkaline Phosphatase 102, Troponin I < 0.01, NT-Pro-B Natriuret Pep 88023 H, Total Protein 7.5, Albumin 4.0, Globulin 3.5 H, Albumin/Globulin Ratio 1.1, TSH 3.28, HIV Ag/Ab Combo Qual Negative 11/07/24 10:48: VBG pH 7.16 L, VBG pCO2 61.2 H, VBG pO2 60.4 H, VBG HCO3 21.5 L, VBG Total CO2 23.4, VBG O2 Saturation 82.2 H, VBG Base Excess -7.1 L, VBG Lactic Acid 5.2 H 11/07/24 14:38: Troponin I 0.04 H 11/07/24 16:43: VBG pH 7.46 H, VBG pCO2 39.7, VBG pO2 51.4 H, VBG HCO3 27.6, VBG Total CO2 28.8 H, VBG O2 Saturation 87.2 H, VBG Base Excess 3.8 H, VBG Lactic Acid 1.4, Lactate 1.1, Troponin I 0.06 H 11/07/24 18:52: HCV Ab EMETERIO w/Rflx PCR Qn Negative 11/08/24 04:35: WBC 8.1 D, RBC 2.99 L, Hgb 6.9 L, Hct 22.7 L, MCV 75.9 L, MCH 23.1 L, MCHC 30.4 L, RDW 17.0, Plt Count 265 D, MPV 9.4, Neut % (Auto) 72.3, Lymph % (Auto) 14.9, [place] % (Auto) 10.5 H, Eos % (Auto) 0.9, Baso % (Auto) 1.0, Neut # (Auto) 5.9, Lymph # (Auto) 1.2, [place] # (Auto) 0.9, Eos # (Auto) 0.1, Baso # (Auto) 0.1, Sodium 140, Potassium 2.8 L* D, Chloride 105, Carbon Dioxide 31 H, Anion Gap 6.8, BUN 15, Creatinine 0.90, Estimated Creat Clear 40, Estimated GFR 60, Est GFR ( Amer) 72 D, Glucose 96 D, Calcium 8.0 L 11/08/24 06:25: Retic Count (auto) 1.4, Blood Type A Positive, Antibody Screen Negative, Crossmatch (AHG) See Detail I & O for Last 24 hours: Intake & Output 11/05/24 11/06/24 11/07/24 11/08/24 11:59 11:59 11:59 11:59 Intake Total 211.667 / 211.667 Output Total 4500 / 4500 Balance -4288.333 / -4288.333 Weight 140 lb 120 lb 12.8 oz Constitutional Constitutional: no acute distress and thin Comments: Sitting up on the bedside and moves well without any shortness of breath. *Routine Respiratory Exam Respiratory: Present crackles (Bilateral bases); Absent wheezes *Routine Cardiovascular Exam Cardiovascular: Present RRR (Monitor showing sinus rhythm) *Routine Abdominal Exam Abdominal: Present soft and normoactive bowel sounds; Absent tenderness *Routine Extremities Exam Extremities: Absent edema or calf tenderness *Routine Neurological Exam Neurological: Present alert and oriented X3 Assessment and Plan *Assessment and plan (1) Flash pulmonary edema: Status: Acute Category: Medical Code(s): J81.0 - Acute pulmonary edema (2) Hypertensive emergency: Status: Acute Category: Medical Code(s): I16.1 - Hypertensive emergency (3) Acute hypercapnic respiratory failure: Status: Acute Category: Medical Code(s): J96.02 - Acute respiratory failure with hypercapnia (4) Acute hypoxic respiratory failure: Status: Acute Category: Medical Code(s): J96.01 - Acute respiratory failure with hypoxia (5) Physical deconditioning: Status: Acute Category: Medical Code(s): R53.81 - Other malaise (6) Anemia: Status: Acute Qualifiers: Anemia type: iron deficiency Iron deficiency anemia type: unspecified iron deficiency Qualified Code(s): D50.9 - Iron deficiency anemia, unspecified Category: Medical Code(s): D64.9 - Anemia, unspecified (7) Constipation: Status: Acute Category: Medical Code(s): K59.00 - Constipation, unspecified (8) HTN (hypertension): Status: Acute Qualifiers: Hypertension type: unspecified Qualified Code(s): I10 - Essential (primary) hypertension Category: Medical Code(s): I10 - Essential (primary) hypertension (9) Elevated troponin I level: Status: Acute Category: Medical Code(s): R79.89 - Other specified abnormal findings of blood chemistry (10) Bilateral pleural effusion: Status: Acute Category: Medical Code(s): J90 - Pleural effusion, not elsewhere classified (11) Chronic HFrEF (heart failure with reduced ejection fraction): Status: Acute Category: Medical Code(s): I50.22 - Chronic systolic (congestive) heart failure (12) Restless legs: Status: Acute Category: Medical Code(s): G25.81 - Restless legs syndrome (13) Peripheral neuropathy: Status: Acute Category: Medical Code(s): G62.9 - Polyneuropathy, unspecified Plan Patient received packed red blood cells today. She has received potassium bolus and will be started on p.o. as well. Will develop new plan for her peripheral neuropathy. Pulmonology and cardiology have been consulted
[2024-11-08] MEDS: 0.9 % SODIUM CHLORIDE 250 ML 25 ML IV (08:22)
[2024-11-08] MEDS: SACUBITRIL/VALSARTAN 24-26MG TABLET 1 EACH PO (08:24)
[2024-11-08] MEDS: AMLODIPINE 5MG TABLET 5 MG PO (08:24)
[2024-11-08] MEDS: POTASSIUM CHLORIDE 20MEQ TAB 20 MEQ PO ×3 (08:24→20:19)
[2024-11-08] MEDS: ASPIRIN 81MG CHEWABLE TABLET 81 MG PO (08:24)
[2024-11-08] MEDS: CLOPIDOGREL 75MG TAB 75 MG PO (08:24)
[2024-11-08] MEDS: SPIRONOLACTONE 25MG TABLET 25 MG PO (08:25)
[2024-11-08 08:31] LABS: Lactate Venous 1.7 mmol/L (0.4-2.0); VBG HCO3 32.4 mmol/L (23-30); VBG PH 7.43 mmol/L (7.31-7.41); VBG PO2 33.6 mmol/L (28-40)
[2024-11-08 08:33] LABS: VBG PCO2 50.5 mmol/L (35-51)
[2024-11-08 08:44] LABS: Folate 14.10 ng/mL
[2024-11-08 09:06] LABS: Vitamin B12 184 pg/mL (239-931)
--- NOTE | 2024-11-08 09:10 | HMH.OTEV ---
OT Evaluation Rehab OT IP Evaluation Start: 11/07/24 15:00 Freq: ONCE Status: Active Protocol: Document 11/08/24 09:05 KHAI (Rec: 11/08/24 09:10 [email or web address] [id number]) Rehab OT IP Assessment Subjective History Pt oriented x 3 on arrival. Pt agreeable to engage in therapy evaluation. Pt admitted on 11/07/24 due to respiratory failure. History and physical: Ms. Najera is an 84-year-old female with with a history of hypertension, hyperlipidemia, ASCVD, NSTEMI in 2022, and ischemic cardiomyopathy with an ejection fraction of 25% who presented to [facility] emergency room for evaluation after experiencing sudden onset of extreme shortness of breath. Patient states she had had no previous problems this morning until this occurred. She also described a good day yesterday. She denies having any associated chest pain, palpitations or other respiratory symptoms. EMS found her in a tripod position and gasping for air on their arrival. O2 sat was 76%. She was placed on CPAP enroute to the hospital. With her evaluation in the emergency room she was found to be hypoxic in hypercapnic respiratory failure with acidosis. The patient dramatically improved from a mental status point with oxygenation. She remained somnolent and she was put on BiPAP. CTA of the chest revealed multifocal airspace opacities in the right lung consistent with pneumonia and no pulmonary embolism. Moderate bilateral pleural effusions which were noted to be increased since the prior exam of 05/18/2024. Chest x-ray revealed mild CHF .Lactate did improve to 1.1. Troponin I increased to 0 .04 and then 0.06. ABGs also improved with venous blood gas showing a pH of 7.46 and a pO2 of 51.4. With this exam patient states she feels much better. They have removed her BiPAP and she is on O2 at 3 L/min . She denies any chest pain and shortness of breath. She states she never had a fever or cold symptoms at home. She had been eating and drinking well. She was been able to ambulate at home without difficulty. She does have a sitter 15/09. Subjective Pt reports prior to being in the hospital, pt lived at home with her . Her and her also have a caregiver 15/09. Pt claims she is normally able to dress and feed herself independently. However, she does require assistance from her caregiver getting in and out of bathtub for safety purposes. Pt is dependent upon caregiver to complete all IADLS. Pt does use a rolling walker to complete functional transfers. Objective Patient Orientation Person,Place,Birthday Right Upper WFL Extremity Gross ROM Left Upper Extremity WFL Gross ROM Bed Mobility bed mobility-scooting,bed mobility - supine/sit Assist Level Supervision/Stand by Transfer Training Sit/Stand Transfer Assist Level Supervision/Stand by Lower Body Dressing Standby Assistance Ability Rehab OT IP prob,goals,plan Problems Date of Evaluation: 11/08/24 Rehab Potential Rehab Potential Innapropriate for Skilled Therapy Discharge Plan OT Discharge Plan Pt appears to be at her baseline with functional transfers and ADL independence. Pt can return home once she is medically stable per physician. Therapist does recommend HH OT evaluation upon returning home for environmental safety needs. Eval Complexity Eval Charge Codes 89622 - Moderate Complexity PHYSICIAN CERTIFICATION: I certify the specified therapy services for Barbara Najera are required, authorized, and reviewed every 30 days.
--- NOTE | 2024-11-08 09:56 | HMH.PTEV ---
Physical Therapy Evaluation Rehab PT IP Evaluation Start: 11/07/24 15:00 Freq: ONCE Status: Active Protocol: Document 11/08/24 09:53 BREE (Rec: 11/08/24 09:56 BREE [id number]) Subjective/History History History Per H&P: Ms. Najera is an 84-year-old female with with a history of hypertension, hyperlipidemia, ASCVD, NSTEMI in 2022, and ischemic cardiomyopathy with an ejection fraction of 25% who presented to [facility] emergency room for evaluation after experiencing sudden onset of extreme shortness of breath. Patient states she had had no previous problems this morning until this occurred. She also described a good day yesterday. She denies having any associated chest pain, palpitations or other respiratory symptoms. Subjective Subjective Pt reports prior to being in the hospital, pt lived at home with her . Pt also has a caregiver 15/09. Pt claims she is normally able to dress and feed herself independently. However, she does require assistance from her caregiver getting in and out of bathtub for safety purposes. Pt is dependent upon caregiver to complete all IADLS. Pt does use a rolling walker to complete functional transfers and ambulation. New diagnosis of No cancer in past 12 months? [facility] How much help from another person do you currently need... Turning from your None back to your side while in a flat bed without using bedrails? Moving from lying on None back to sitting on the side of a flat bed without using bedrails? Moving to and from a None bed to a chair ( including a wheelchair)? Standing up from a None chair using your arms? (e.g., wheelchair, bedside chair) Walking in hospital None room? Climbing 3-5 steps A little with a railing? Mobility Score [address] [facility] Mobility 7 Walk 25 feet or more Mobility Calculator Rehab PT IP Eval Objective Appearance Patient Behavior Appropriate,Cooperative Patient Orientation Person,Situation Difficulty following none instructions Speech Pattern Clear Ambulation Patient Able to Yes Ambulate Ambulation Observation IP General Gait No Deviations/Normal Pattern Observation Ambulation Distance 30 (feet) Ambulation Assistive Rolling Walker Device Ambulation Ability Supervision/Stand by Balance Ability to Arise Able, uses arms to help Sitting Balance Steady, safe Standing Balance Steady, wide stance Dynamic Sitting Good Balance Ability Dynamic Standing Good Balance Ability Transfers Bed Transfer Ability Independent Sit to Stand Bed Independent Transfer Ability Rehab PT IP prob,goals,plan Problems Date of Evaluation: 11/08/24 Rehab Potential Rehab Potential Innapropriate for Skilled Therapy Discharge Plan PT Discharge Plan Pt presents at her baseline in functional mobility and would not benefit from skilled PT at this time. Eval Complexity Eval Charge Codes 54336 - Moderate Complexity PHYSICIAN CERTIFICATION: I certify the specified therapy services for Barbara Najera are required, authorized, and reviewed every 30 days.
[2024-11-08] MEDS: ROPINIROLE 1MG TABLET 2 MG PO ×3 (10:06→20:20)
--- NOTE | 2024-11-08 10:08 | P.CONS_ITS ---
History of Present Illness History of present illness: Ms. Najera is a 84-year-old female no significant smoking history, no prior respiratory complaints, question of prior history of asthma, hypertension CAD heart failure reduced EF at 25% presented to the ER with worsening respiratory distress and pulmonary was called for further evaluation and management. Patient admitted also noted to hypercarbic respiratory failure needing noninvasive ventilatory support. [facility] Disclaimer: The information contained in this section may have been updated after the patient was seen, as this information can be updated by other users. Medical History (Updated 11/08/24 @ 14:27 by Remi Calderón MD) Pneumonia Awa UTI Adnexal mass TIA (transient ischemic attack) Abnormal CT scan of head Lesion of ovary Urinary tract infectious disease Adnexal cyst Cystitis Chronic pyelonephritis Acute pyelonephritis YAMEL (acute kidney injury) Acute nontraumatic kidney injury Pessary maintenance Uterine prolapse Prolapse of anterior vaginal wall Pyelonephritis GI bleed Chronic constipation CKD (chronic kidney disease) stage 3, GFR 30-59 ml/min Coronary artery disease Ischemic cardiomyopathy ASCVD (arteriosclerotic cardiovascular disease) Systolic heart failure Cardiomyopathy CHF (congestive heart failure) HLD (hyperlipidemia) Hypertension Left bundle branch block (LBBB) determined by electrocardiography NSTEMI (non-ST elevated myocardial infarction) Surgical History History of cardiac cath S/P partial hysterectomy Family History No significant family history Social History Smoking Status: Never smoker alcohol intake: never current occupational status: retired Travel in the last 8 weeks?: None Have you lived/traveled outside [place] in past 30 days?: No Contact w/someone who lives/traveled outside [place] past 30 days?: No Exposure to someone with infectious disease in past 14 days?: No Do you have a fever (greater than 100.4 F or 38 C)?: No Have you tested positive for COVID-19?: No Exposed to someone with COVID-19 in past 14 days?: No Do you have a sore throat?: No Do you have a cough?: No Do you have any weakness?: No Do you have any diarrhea?: No Are you experiencing any unusual bleeding?: No Do you have any muscle aches/pain?: No Do you have any abdominal pain?: No Are you experiencing loss of taste or smell?: No Review of Systems Constitutional Constitutional: Reports fatigue, Denies frequent falls and Denies headache(s) Eyes Eyes: Denies eye discharge, Denies dry eyes, Denies irritation and Denies itchy eyes ENT Ears, Nose, Mouth, and Throat: Denies headache(s), Denies lip swelling and Denies throat swelling *Cardiovascular Cardiovascular: Reports dyspnea and Reports dyspnea on exertion *Respiratory Respiratory: Denies change in phlegm color, Reports chest congestion, Reports cough, Reports dyspnea, Reports dyspnea on exertion, Denies excessive phlegm production, Denies hemoptysis, Denies pain on inspiration, Denies pain with cough and Reports wheezing *Gastrointestinal Gastrointestinal: Denies abdominal pain, Denies belching and Denies cramping *Musculoskeletal Musculoskeletal: Reports back pain, Reports myalgias and Reports other (No small joint swelling or Pain) *Neurologic Neurologic: Reports confusion, Denies frequent falls and Denies headache(s) Psychiatric Psychiatric: Reports confusion Endocrine Endocrine: Reports fatigue and Denies heat intolerance Hematologic/Lymphatic Hematologic/Lymphatic: Denies easy bleeding and Denies lymphadenopathy Allergic/Immunologic Allergic/Immunologic: Denies itchy eyes, Denies lip swelling, Denies throat swelling and Reports wheezing Pulmonology Exam Inpatient Vital signs and Labs for Last 24 Hours: Temp Pulse Resp BP Pulse Ox O2 Del Method O2 Flow Rate 98.4 F 71 17 134/61 96 Nasal Cannula 3 11/08/24 09:20 11/08/24 09:20 11/08/24 09:20 11/08/24 09:20 11/08/24 09:20 11/08/24 08:00 11/08/24 08:00 FiO2 40 11/08/24 05:00 Laboratory Results - last 24 hr 11/07/24 10:20: WBC 14.2 H, RBC 3.47 L, Hgb 8.1 L, Hct 27.6 L, MCV 79.5 L, MCH 23.3 L, MCHC 29.3 L, RDW 17.2, Plt Count 421, MPV 9.5, Neut % (Auto) 65.9, Lymph % (Auto) 24.3, Ballard % (Auto) 6.5, Eos % (Auto) 1.6, Baso % (Auto) 1.3, Neut # (Auto) 9.3 H, Lymph # (Auto) 3.4, Ballard # (Auto) 0.9, Eos # (Auto) 0.2, Baso # (Auto) 0.2, Sodium 140, Potassium 3.6, Chloride 106, Carbon Dioxide 22, Anion Gap 15.6 H, BUN 16, Creatinine 1.10 H, Estimated Creat Clear 38, Estimated GFR 47 L, Est GFR ( Amer) 57 L, Glucose 270 H, Calcium 8.4, Magnesium 1.8, Total Bilirubin 0.9, AST 28, ALT 25, Alkaline Phosphatase 102, Troponin I < 0.01, NT-Pro-B Natriuret Pep 62002 H, Total Protein 7.5, Albumin 4.0, Globulin 3.5 H, Albumin/Globulin Ratio 1.1, TSH 3.28, HIV Ag/Ab Combo Qual Negative 11/07/24 10:48: VBG pH 7.16 L, VBG pCO2 61.2 H, VBG pO2 60.4 H, VBG HCO3 21.5 L, VBG Total CO2 23.4, VBG O2 Saturation 82.2 H, VBG Base Excess -7.1 L, VBG Lactic Acid 5.2 H 11/07/24 14:38: Troponin I 0.04 H 11/07/24 16:43: VBG pH 7.46 H, VBG pCO2 39.7, VBG pO2 51.4 H, VBG HCO3 27.6, VBG Total CO2 28.8 H, VBG O2 Saturation 87.2 H, VBG Base Excess 3.8 H, VBG Lactic Acid 1.4, Lactate 1.1, Troponin I 0.06 H 11/07/24 18:52: HCV Ab EMETERIO w/Rflx PCR Qn Negative 11/08/24 04:35: WBC 8.1 D, RBC 2.99 L, Hgb 6.9 L, Hct 22.7 L, MCV 75.9 L, MCH 23.1 L, MCHC 30.4 L, RDW 17.0, Plt Count 265 D, MPV 9.4, Neut % (Auto) 72.3, Lymph % (Auto) 14.9, Ballard % (Auto) 10.5 H, Eos % (Auto) 0.9, Baso % (Auto) 1.0, Neut # (Auto) 5.9, Lymph # (Auto) 1.2, Ballard # (Auto) 0.9, Eos # (Auto) 0.1, Baso # (Auto) 0.1, Sodium 140, Potassium 2.8 L* D, Chloride 105, Carbon Dioxide 31 H, Anion Gap 6.8, BUN 15, Creatinine 0.90, Estimated Creat Clear 40, Estimated GFR 60, Est GFR ( Amer) 72 D, Glucose 96 D, Calcium 8.0 L 11/08/24 06:25: Retic Count (auto) 1.4, Vitamin B12 184 L, Folate 14.10, Blood Type A Positive, Antibody Screen Negative, Crossmatch (AHG) See Detail 11/08/24 08:25: VBG pH 7.43 H, VBG pCO2 50.5, VBG pO2 33.6, VBG HCO3 32.4 H, VBG Total CO2 33.9 H, VBG O2 Saturation 61.1, VBG Base Excess 8.0 H, VBG Lactic Acid 1.7 I & O for Labs for Last 24 Hours: Intake & Output 11/05/24 11/06/24 11/07/24 11/08/24 23:59 23:59 23:59 23:59 Intake Total 120 / 120 91.667 / 91.667 Output Total 3850 / 4150 650 / 650 Balance -3730 / -4030 -558.333 / -558.333 Weight 134 lb 8 oz 120 lb 12.8 oz Constitutional: Present moderate distress Head: Present normocephalic and atraumatic ENT: Present normal exam, normal oropharynx and mucous membranes moist Neck: Present normal inspection and full ROM Respiratory: Present respiratory distress, rhonchi, crackles, diminished air movement and able to speak in complete sentences; Absent wheezes Cardiac: Present S1/S2, Tachycardia and radial pulses present GI: Present soft and distention; Absent tenderness or guarding Rectal (female): Present deferred (female): Present deferred Skin: Present intact; Absent cyanosis or jaundice Neuro: Present alert, awake and oriented x 3 Extremities: Present normal inspection; Absent clubbing or cyanosis Psychiatric: Present normal affect and cooperative Meds Home Medications and Allergies Home Medications ?Medication ?Instructions ?Recorded ?Confirmed ?Type aspirin 81 mg chewable tablet 81 mg PO DAILY 03/11/23 11/07/24 History atorvastatin 40 mg tablet 40 mg PO HS 03/11/23 5 History carvedilol 3.125 mg tablet 3.125 mg PO BID 03/11/23 History clonazepam 1 mg tablet 1 mg PO HSP PRN Insomnia 11/07/24 History clopidogrel 75 mg tablet 75 mg PO DAILY 05/26/2410/24 History amlodipine 5 mg tablet 5 mg PO DAILY 11/07/2411/07 History ondansetron 4 mg disintegrating 4 mg PO Q8HP PRN Nause a And 11/07/24 11/07/24 History tablet Vomiting ropinirole 3 mg tablet 3 mg PO HS 11/07/24 11/07/24 History sacubitril 24 mg-valsartan 26 mg 1 tab PO BID 11/07/24 11/07/24 History tablet (Entresto) tramadol 50 mg tablet 50 mg PO Q6HP PRN Moderate P ain 11/07/24 11/07/24 History (Scale Score 5-6) New Prescriptions to Start Prescriptions: Allergies Allergy/AdvReac Type Severity Reaction Status Date / Time promethazine Allergy Intermediate severe Verified 11/07/24 14:15 vomiting Penicillins Allergy Unknown Verified 11/07/24 14:15 allergy reaction Sulfa (Sulfonamide Allergy Unknown Verified 11/07/24 14:15 Antibiotics) allergy reaction triprolidine Allergy Unknown Verified 11/07/24 14:15 allergy reaction Results Laboratory Findings 11/08/24 04:35 11/08/24 04:35 Abnormal lab findings: Abnormal Labs 11/07/24 11/07/24 11/07/24 10:20 10:48 14:38 WBC 14.2 H RBC 3.47 L Hgb 8.1 L Hct 27.6 L MCV 79.5 L MCH 23.3 L MCHC 29.3 L Ballard % (Auto) Neut # (Auto) 9.3 H VBG pH 7.16 L VBG pCO2 61.2 H VBG pO2 60.4 H VBG HCO3 21.5 L VBG Total CO2 VBG O2 Saturation 82.2 H VBG Base Excess -7.1 L VBG Lactic Acid 5.2 H Potassium Carbon Dioxide Anion Gap 15.6 H Creatinine 1.10 H Estimated GFR 47 L Est GFR ( Amer) 57 L Glucose 270 H Calcium Troponin I 0.04 H NT-Pro-B Natriuret Pep 98217 H Globulin 3.5 H Vitamin B12 Crossmatch (AHG) 11/07/24 11/08/24 11/08/24 16:43 04:35 06:25 WBC RBC 2.99 L Hgb 6.9 L Hct 22.7 L MCV 75.9 L MCH 23.1 L MCHC 30.4 L Ballard % (Auto) 10.5 H Neut # (Auto) VBG pH 7.46 H VBG pCO2 VBG pO2 51.4 H VBG HCO3 VBG Total CO2 28.8 H VBG O2 Saturation 87.2 H VBG Base Excess 3.8 H VBG Lactic Acid Potassium 2.8 L* D Carbon Dioxide 31 H Anion Gap Creatinine Estimated GFR Est GFR ( Amer) Glucose Calcium 8.0 L Troponin I 0.06 H NT-Pro-B Natriuret Pep Globulin Vitamin B12 184 L Crossmatch (AHG) See Detail 11/08/24 08:25 WBC RBC Hgb Hct MCV MCH MCHC Ballard % (Auto) Neut # (Auto) VBG pH 7.43 H VBG pCO2 VBG pO2 VBG HCO3 32.4 H VBG Total CO2 33.9 H VBG O2 Saturation VBG Base Excess 8.0 H VBG Lactic Acid Potassium Carbon Dioxide Anion Gap Creatinine Estimated GFR Est GFR ( Amer) Glucose Calcium Troponin I NT-Pro-B Natriuret Pep Globulin Vitamin B12 Crossmatch (AHG) Assessment and Plan *Assessment and plan (1) Acute hypercapnic respiratory failure: Status: Acute Category: Medical Code(s): J96.02 - Acute respiratory failure with hypercapnia (2) Acute hypoxic respiratory failure: Status: Acute Category: Medical Code(s): J96.01 - Acute respiratory failure with hypoxia (3) Pneumonia: Status: Acute Category: Medical Code(s): J18.9 - Pneumonia, unspecified organism (4) Bilateral pleural effusion: Status: Acute Category: Medical Code(s): J90 - Pleural effusion, not elsewhere classified Plan Ms. Najera is a 84-year-old female no significant smoking history, no prior respiratory complaints, question of prior history of asthma, hypertension CAD heart failure reduced EF at 25% presented to the ER with worsening respiratory distress and pulmonary was called for further evaluation and management. Patient admitted also noted to hypercarbic respiratory failure needing noninvasive ventilatory support. Afebrile. Hemodynamically stable. Neutrophilic predominant leukocytosis upon admission improving. Blood gas upon admission hypercarbic respiratory failure with pH of 7.16 and pCO2 61.8, improved. CTA upon admission no pulmonary embolism. Bilateral diffuse patchy airspace disease prominent upper lobe right greater than left along with moderate right pleural effusion and small left pleural effusion. On examination moderate respiratory distress. No significant wheezing noted on auscultation. Weaned to room air with saturations maintained at 95% and above. Patient admits significant improvement in her respiratory symptoms over the weekend. Plan: Oxygen supplementation on as-needed basis to maintain O2 saturation above 90% and Initiate levofloxacin once daily for the concerning bilateral patchy airspace disease. Follow with comprehensive respiratory viral PCR panel and nasal MRSA PCR Continue DuoNebs Every 6 Hours on a Scheduled Basis Volume optimization as per primary team and cardiology
--- NOTE | 2024-11-08 10:20 | EXP.CARD.CON ---
History of Present Illness History of Present Illness Consult date: 11/08/24 Requesting physician: Denys Carbajal Consult reason: congestive heart failure and shortness of breath Chief complaint: SOA Additional Medical History:: 1. Hypertension 2. Hyperlipidemia A. Chronic statin therapy 3. Abnormal EKG with left bundle branch block, 02/02/2023 possibly new. A. Possible a. flutter with 2:1 conduction, 01/2023 4. Heart failure with reduced ejection fraction, new on 02/02/2023 A. Echo, 01/2023, Severely reduced LV systolic function (LVEF 25%). Anterior and anteroseptal LV pandya appear akinetic. The septum appears asynchronous. Trivial pericardial effusion. B. Limited Echo, 04/2023, The left ventricle is normal in size. There is increased LV wall thickness. The anterior, anteroseptal, and septal LV pandya are nearly akinetic. LVEF is 25%. C. Echo, 05/19/2024, dilated LV with EF 25%, grade 2 DD, asynchronous septum, RV dilation with normal function, biatrial dilation, mild MR/TR. Trivial pericardial effusion with no tamponade. 5. Coronary artery disease A. Non-STEMI, 02/02/2023 B. JERRELL to LAD, 02/02/2023 6. Possible CVA with abnormal CT of the head (hypodensity of left brainstem) 04/2024 A. MRI negative for acute event. 7. Recurrent anemia A. Transfused 1 unit of blood, 04/2024 History of present illness: 84-year-old white female with known history of HFrEF and CAD presented to the [facility] ER for evaluation of sudden onset of shortness of breath. She denies any recent chest pain, pressure or tightness. ER workup pertinent for 5 hypercapnic respiratory failure with acidosis. Mentation improved with oxygenation (BiPAP along with institution of diuretics. Chest CTA showed evidence of multifocal opacities in the right lung consistent with pneumonia but no pulmonary embolus. She also noted to have moderate bilateral fusions increased since 04/2024 imaging. Troponins are mildly elevated at 0.06 with BNP over 19,000. Patient subsequently admitted for flash pulmonary edema along with acute hypoxic and hypercapnic respiratory failure. This morning patient states she is feeling much better and she has diuresed over 4 L overnight. She is currently in the process of receiving a blood transfusion since her hemoglobin dropped to 6.9 overnight. She denies any melena or hematochezia recently and states that she watches her bowel movements closely. She has intermittent constipation. Reticulocyte count is normal at 1.4. Patient was seen previously in April of this year for similar conditions at which time we referred ischemic workup due to anemia and getting blood transfusion at that time. She did not follow-up in our office any further testing. Flash pulmonary edema this admission further testing while she is inpatient. [facility] Disclaimer: The information contained in this section may have been updated after the patient was seen, as this information can be updated by other users. Medical History (Updated 11/08/24 @ 14:27 by Remi Calderón MD) Pneumonia Awa UTI Adnexal mass TIA (transient ischemic attack) Abnormal CT scan of head Lesion of ovary Urinary tract infectious disease Adnexal cyst Cystitis Chronic pyelonephritis Acute pyelonephritis YAMEL (acute kidney injury) Acute nontraumatic kidney injury Pessary maintenance Uterine prolapse Prolapse of anterior vaginal wall Pyelonephritis GI bleed Chronic constipation CKD (chronic kidney disease) stage 3, GFR 30-59 ml/min Coronary artery disease Ischemic cardiomyopathy ASCVD (arteriosclerotic cardiovascular disease) Systolic heart failure Cardiomyopathy CHF (congestive heart failure) HLD (hyperlipidemia) Hypertension Left bundle branch block (LBBB) determined by electrocardiography NSTEMI (non-ST elevated myocardial infarction) Surgical History History of cardiac cath S/P partial hysterectomy Family History No significant family history Social History Smoking Status: Never smoker alcohol intake: never current occupational status: retired Travel in the last 8 weeks?: None Have you lived/traveled outside US in past 30 days?: No Contact w/someone who lives/traveled outside US past 30 days?: No Exposure to someone with infectious disease in past 14 days?: No Do you have a fever (greater than 100.4 F or 38 C)?: No Have you tested positive for COVID-19?: No Exposed to someone with COVID-19 in past 14 days?: No Do you have a sore throat?: No Do you have a cough?: No Do you have any weakness?: No Do you have any diarrhea?: No Are you experiencing any unusual bleeding?: No Do you have any muscle aches/pain?: No Do you have any abdominal pain?: No Are you experiencing loss of taste or smell?: No Review of Systems Review of Systems Review of systems:: pertinent systems reviewed and negative unless documented below Constitutional Constitutional: Denies frequent falls and Denies headache(s) ENT Ears, Nose, Mouth, and Throat: Denies headache(s) *Cardiovascular Cardiovascular: Denies chest pain and Reports dyspnea *Respiratory Respiratory: Reports dyspnea *Neurologic Neurologic: Reports confusion, Denies frequent falls and Denies headache(s) Psychiatric Psychiatric: Reports confusion Exam Data for Last 24 hours Vital signs and Labs for Last 24 Hours: Temp Pulse Resp BP Pulse Ox O2 Del Method O2 Flow Rate 97.3 F L 72 17 126/52 L 95 Nasal Cannula 3 11/08/24 10:05 11/08/24 10:05 11/08/24 10:05 11/08/24 10:05 11/08/24 10:05 11/08/24 10:00 11/08/24 10:00 FiO2 40 11/08/24 05:00 Laboratory Results - last 24 hr 11/07/24 10:20: WBC 14.2 H, RBC 3.47 L, Hgb 8.1 L, Hct 27.6 L, MCV 79.5 L, MCH 23.3 L, MCHC 29.3 L, RDW 17.2, Plt Count 421, MPV 9.5, Neut % (Auto) 65.9, Lymph % (Auto) 24.3, Edmonson % (Auto) 6.5, Eos % (Auto) 1.6, Baso % (Auto) 1.3, Neut # (Auto) 9.3 H, Lymph # (Auto) 3.4, Edmonson # (Auto) 0.9, Eos # (Auto) 0.2, Baso # (Auto) 0.2, Sodium 140, Potassium 3.6, Chloride 106, Carbon Dioxide 22, Anion Gap 15.6 H, BUN 16, Creatinine 1.10 H, Estimated Creat Clear 38, Estimated GFR 47 L, Est GFR ( Amer) 57 L, Glucose 270 H, Calcium 8.4, Magnesium 1.8, Total Bilirubin 0.9, AST 28, ALT 25, Alkaline Phosphatase 102, Troponin I < 0.01, NT-Pro-B Natriuret Pep 43425 H, Total Protein 7.5, Albumin 4.0, Globulin 3.5 H, Albumin/Globulin Ratio 1.1, TSH 3.28, HIV Ag/Ab Combo Qual Negative 11/07/24 10:48: VBG pH 7.16 L, VBG pCO2 61.2 H, VBG pO2 60.4 H, VBG HCO3 21.5 L, VBG Total CO2 23.4, VBG O2 Saturation 82.2 H, VBG Base Excess -7.1 L, VBG Lactic Acid 5.2 H 11/07/24 14:38: Troponin I 0.04 H 11/07/24 16:43: VBG pH 7.46 H, VBG pCO2 39.7, VBG pO2 51.4 H, VBG HCO3 27.6, VBG Total CO2 28.8 H, VBG O2 Saturation 87.2 H, VBG Base Excess 3.8 H, VBG Lactic Acid 1.4, Lactate 1.1, Troponin I 0.06 H 11/07/24 18:52: HCV Ab EMETERIO w/Rflx PCR Qn Negative 11/08/24 04:35: WBC 8.1 D, RBC 2.99 L, Hgb 6.9 L, Hct 22.7 L, MCV 75.9 L, MCH 23.1 L, MCHC 30.4 L, RDW 17.0, Plt Count 265 D, MPV 9.4, Neut % (Auto) 72.3, Lymph % (Auto) 14.9, Edmonson % (Auto) 10.5 H, Eos % (Auto) 0.9, Baso % (Auto) 1.0, Neut # (Auto) 5.9, Lymph # (Auto) 1.2, Edmonson # (Auto) 0.9, Eos # (Auto) 0.1, Baso # (Auto) 0.1, Sodium 140, Potassium 2.8 L* D, Chloride 105, Carbon Dioxide 31 H, Anion Gap 6.8, BUN 15, Creatinine 0.90, Estimated Creat Clear 40, Estimated GFR 60, Est GFR ( Amer) 72 D, Glucose 96 D, Calcium 8.0 L 11/08/24 06:25: Retic Count (auto) 1.4, Vitamin B12 184 L, Folate 14.10, Blood Type A Positive, Antibody Screen Negative, Crossmatch ([facility]) See Detail 11/08/24 08:25: VBG pH 7.43 H, VBG pCO2 50.5, VBG pO2 33.6, VBG HCO3 32.4 H, VBG Total CO2 33.9 H, VBG O2 Saturation 61.1, VBG Base Excess 8.0 H, VBG Lactic Acid 1.7 I & O for Last 24 hours: Intake & Output 11/05/24 11/06/24 11/07/24 11/08/24 11:59 11:59 11:59 11:59 Intake Total 211.667 / 211.667 Output Total 4500 / 4500 Balance -4288.333 / -4288.333 Weight 140 lb 120 lb 12.8 oz Constitutional Constitutional: no acute distress *Routine Respiratory Exam Respiratory: Present CTA bilaterally *Routine Cardiovascular Exam Cardiovascular: Present RRR and murmur; Absent gallop or rubs *Routine Extremities Exam Extremities: Absent edema *Routine Neurological Exam Neurological: Present alert, oriented X3 and CN II-XII intact Meds Home Medications and Allergies Home Medications ?Medication ?Instructions ?Recorded ?Confirmed ?Type aspirin 81 mg chewable tablet 81 mg PO DAILY 03/11/23 11/07/24 History atorvastatin 40 mg tablet 40 mg PO HS 03/11/23 11/07/24 History carvedilol 3.125 mg tablet 3.125 mg PO BID 03/11/23 11/07/24 History clonazepam 1 mg tablet 1 mg PO HSP PRN Insomnia 12/16/23 11/07/24 History clopidogrel 75 mg tablet 75 mg PO DAILY 05/26/24 11/07/24 History amlodipine 5 mg tablet 5 mg PO DAILY 11/07/24 11/07/24 History ondansetron 4 mg disintegrating 4 mg PO Q8HP PRN Nausea And 11/07/24 11/07/24 History tablet Vomiting ropinirole 3 mg tablet 3 mg PO HS 11/07/24 11/07/24 History sacubitril 24 mg-valsartan 26 mg 1 tab PO BID 11/07/24 11/07/24 History tablet (Entresto) tramadol 50 mg tablet 50 mg PO Q6HP PRN Moderate Pain 11/07/24 11/07/24 History (Scale Score 5-6) New Prescriptions to Start Prescriptions: Allergies Allergy/AdvReac Type Severity Reaction Status Date / Time promethazine Allergy Intermediate severe Verified 11/07/24 14:15 vomiting Penicillins Allergy Unknown Verified 11/07/24 14:15 allergy reaction Sulfa (Sulfonamide Allergy Unknown Verified 11/07/24 14:15 Antibiotics) allergy reaction triprolidine Allergy Unknown Verified 11/07/24 14:15 allergy reaction Assessment and Plan *Assessment and plan (1) Flash pulmonary edema: Status: Acute Category: Medical Code(s): J81.0 - Acute pulmonary edema (2) Acute hypoxic respiratory failure: Status: Acute Category: Medical Code(s): J96.01 - Acute respiratory failure with hypoxia (3) Acute hypercapnic respiratory failure: Status: Acute Category: Medical Code(s): J96.02 - Acute respiratory failure with hypercapnia (4) Elevated troponin I level: Status: Acute Category: Medical Code(s): R79.89 - Other specified abnormal findings of blood chemistry (5) Anemia: Status: Acute Qualifiers: Anemia type: iron deficiency Iron deficiency anemia type: unspecified iron deficiency Qualified Code(s): D50.9 - Iron deficiency anemia, unspecified Category: Medical Code(s): D64.9 - Anemia, unspecified (6) Generalized weakness: Status: Acute Category: Medical Code(s): R53.1 - Weakness (7) Chronic HFrEF (heart failure with reduced ejection fraction): Status: Acute Category: Medical Code(s): I50.22 - Chronic systolic (congestive) heart failure Plan 1. Flash pulmonary edema/acute on chronic HFrEF -Patient has diuresed over 4 L improvement in symptoms -Currently on Coreg, Entresto, Norvasc, spironolactone -received IV lasix yesterday -check Echo today 2. Acute hypoxic/hypercapnic respiratory failure -On supplemental oxygen -Pulmonary consulted 3. Elevated troponin, likely secondary to demand ischemia the patient has previous coronary artery disease. -Would recommend proceeding with inpatient Lexiscan Myoview to assess coronaries if patient is willing -On ASA and plavix -on statin with LDL 36 in 04/2024 4. Recurrent anemia with microcytic indices -Getting blood transfusion today -workup in progress 5. Hypokalemia, K of 2.8 -Replacement has been ordered 6. Restless legs -Ropinirole ordered Repeat lasix today after blood transfusion Recommend stopping norvasc and increase entresto Recommend GI evaluation with EGD. Recommend cardiac cath prior to discharge due to recurrent flash pulm edema with known CAD/prior stenting. Discussed with Dr. Nuno.
--- NOTE | 2024-11-08 10:52 | CA_ITS ---
APPROVED REPORT EXAM: Limited 2D, Doppler, and color-flow Echocardiogram with contrast County Judge: Jennifer Jean-Baptiste CRT Ht: 5 ft 5 in Wt: 120lbs BSA: 1.59 BP: 126/52 mmHg Indications: CHF Echo Enhancing Agent Indication: Endocardial border delineation Agent(s) / Amount(s) Used: Definity 2 cc Comments: Definity given. EF 25% 05/19/24 M-Mode Dimensions RVDd 3.04 cm (0.9-2.6) LVDd 5.93 cm (3.5-5.7) LVDs 4.71 cm (3.5-5.7) IVSd 1.54 cm (0.6-1.1) PWd 1.06 cm (0.6-1.1) EF (Teich) 41.30% FS 20.60% EDV (Teich) 175.20 mL ESV (Teich) 102.90 mL Other Information Study Quality: Fair Conclusion This is a limited TTE to evaluate for LV systolic function. Limited windows were obtained. Ultrasound enhancing agent is administered. The left ventricle is moderately dilated. There is increased LV wall thickness. There is severe global hypokinesis present. There is akinesis of the septal, anteroseptal, and inferoseptal LV pandya. LVEF is 25%. Administration of ultrasound enhancing agent demonstrates no evidence of LV thrombus. Electronically signed by : Nurys Gtz MD 11/08/2024 12:20:44
[2024-11-08 11:19] LABS: POC Glucose,Bedside 126 gm/dL (70-110)
[2024-11-08] MEDS: DEFINITY US ECHO CONTRAST 2ML INJ 2 MG IV (11:49)
[2024-11-08 12:11] LABS: Iron 32 ug/dL (37-170)
--- NOTE | 2024-11-08 12:15 | SW/DCPLANNER ---
Spoke with patient once she is medically stable and ready for discharge if patient would be interested in home health services. Patient stated that she is not interested in home health at this time. Cathie Guerrero
[2024-11-08 12:20] LABS: Total Iron Binding Capacity 344 ug/dL (265-497)
[2024-11-08] MEDS: FUROSEMIDE 40MG/4ML VIAL 40 MG IV (12:40)
[2024-11-08 13:34] LABS: Adenovirus,PCR Not Detected (NotDetected); Chlamydophila Pneumoniae, PCR Not Detected (NotDetected); Coronavirus 19, PCR Not Detected (NotDetected); Coronovirus HKU1,PCR Not Detected (NotDetected); Influenza A, PCR Not Detected (NotDetected); Influenza AH1, 2009 Not Detected (NotDetected); Influenza AH1, PCR Not Detected (NotDetected); Influenza AH3,PCR Not Detected (NotDetected); Influenza B, PCR Not Detected (NotDetected); Mycoplasma Pneumoniae, PCR Not Detected (NotDetected); Parainfluenza 1, PCR Not Detected (NotDetected); Parainfluenza 2, PCR Not Detected (NotDetected); Parainfluenza 3, PCR Not Detected (NotDetected); Parainfluenza 4, PCR Not Detected (NotDetected)
[2024-11-08 15:38] LABS: Chloride 100 mmol/L (98-107); Potassium 4.2 mmoL/L (3.5-5.1); Sodium 140 mmol/L (136-145)
[2024-11-08 15:41] LABS: Blood Urea Nitrogen 17 mg/dl (7-17); Creatinine Clearance Estimated 36 mL/min (50-200); Creatinine,Serum 1.00 mg/dl (0.52-1.04); Estimated Glomerular Filt Rate 53 ml/min (>60); GFR (African American) 64 ML/MIN (>60)
[2024-11-08 15:42] LABS: Anion Gap 13.2 mEq/L (5-15); Calcium 8.4 mg/dl (8.4-10.2); Carbon Dioxide 31 mmol/L (22.0-30.0); Glucose 131 mg/dl (74-100)
[2024-11-08] MEDS: LEVOFLOXACIN/D5W 750 MG/150 ML 750 MG/150 ML PIGGYBACK 100 MG IV (17:20)
[2024-11-08 17:59] LABS: Hematocrit 34.8 % (37.0-47.0)
[2024-11-08 18:23] LABS: Hemoglobin 10.9 g/dL (12.2-16.2)
[2024-11-08] MEDS: ATORVASTATIN 40MG TABLET 40 MG PO (20:19)
[2024-11-08] MEDS: SACUBITRIL/VALSARTAN 24-26MG TABLET 2 EACH PO (20:24)
[2024-11-09] VITALS (26 sets, daily range): BP systolic 100–140; BP diastolic 51–77; PULSE 60–84; RESP 13–28; TEMP 36.5–36.8; O2SAT 80–99; BMI 18.8
[2024-11-09] MEDS: TRAMADOL 50MG TABLET 50 MG PO (03:27)
--- NOTE | 2024-11-09 06:32 | PC.NURSE ---
Pt alert and oriented x4 at beginning of shift and end of shift. Pt took night meds and was able to sleep until 12a. pt called out complaining of back and leg pain. Pt was wanting to walk in room with walker to relieve pressure on bottom and to stretch her legs. Pt was restless from approximately 12am-5am. Pt only required 2L nasal cannula while asleep. Foam dressing was placed on pt coccyx to help relieve pressure. Pt has been NSR w/BBB on monitor.
[2024-11-09] MEDS: ASPIRIN 81MG CHEWABLE TABLET 81 MG PO (08:00)
[2024-11-09] MEDS: ROPINIROLE 1MG TABLET 2 MG PO ×3 (08:00→21:00)
[2024-11-09] MEDS: SACUBITRIL/VALSARTAN 24-26MG TABLET 2 EACH PO ×2 (08:01→20:59)
[2024-11-09] MEDS: POTASSIUM CHLORIDE 20MEQ TAB 20 MEQ PO (08:02)
[2024-11-09] MEDS: SPIRONOLACTONE 25MG TABLET 25 MG PO (08:02)
[2024-11-09] MEDS: CLOPIDOGREL 75MG TAB 75 MG PO (08:02)
--- NOTE | 2024-11-09 08:53 | P.PN_ITS ---
Subjective *Date: 11/09/24 *Time: 09:06 Interval history: Patient is feeling well this am. She denies any pain. She is not sleeping and would like her clonazepam. She has not required BIPAP and would like to be moved to another room. Medical Exam Vital signs and Labs for Last 24 Hours: Vital Signs Temp Pulse Pulse Resp BP BP Pulse Ox 11/09/24 08:00 98.3 F 84 19 132/72 98 11/09/24 08:00 83 11/09/24 07:55 95 11/09/24 07:54 82 18 133/77 98 11/09/24 07:43 98 11/09/24 07:00 81 18 140/73 97 11/09/24 07:00 11/09/24 06:31 130/65 11/09/24 06:31 79 20 99 11/09/24 06:30 72 13 94 L 11/09/24 06:25 92 L 11/09/24 06:15 75 18 85 L 11/09/24 06:00 74 22 87 L 11/09/24 06:00 119/63 11/09/24 06:00 74 22 119/63 87 L 11/09/24 05:45 74 24 85 L 11/09/24 05:30 101/56 L 11/09/24 05:30 70 16 80 L 11/09/24 05:15 76 18 86 L 11/09/24 05:00 81 24 114/61 96 11/09/24 05:00 114/61 11/09/24 05:00 81 23 114/61 94 L 11/09/24 05:00 11/09/24 04:01 97.7 F 76 17 140/69 97 11/09/24 04:00 84 11/09/24 04:00 95 11/09/24 04:00 79 19 140/69 98 11/09/24 03:33 73 96 11/09/24 03:15 79 18 95 11/09/24 03:01 78 13 93 L 11/09/24 03:01 140/75 11/09/24 03:00 79 19 140/75 95 11/09/24 03:00 11/09/24 02:00 70 27 H 120/62 96 11/09/24 02:00 120/62 11/09/24 01:00 11/09/24 00:00 60 11/09/24 00:00 97.7 F 61 28 H 100/51 L 93 L 11/09/24 00:00 100/51 L 11/09/24 00:00 93 L 11/08/24 23:30 106/51 L 11/08/24 23:00 67 24 95/48 L 92 L 11/08/24 23:00 11/08/24 22:00 119/61 11/08/24 22:00 75 25 H 97 11/08/24 21:45 74 23 87 L 11/08/24 21:45 119/63 11/08/24 21:30 72 24 92 L 11/08/24 21:30 111/63 11/08/24 21:16 127/77 11/08/24 21:16 77 20 91 L 11/08/24 21:15 77 17 92 L 11/08/24 21:00 135/70 11/08/24 21:00 73 19 135/70 93 L 11/08/24 21:00 11/08/24 20:00 72 11/08/24 20:00 97.7 F 69 27 H 133/68 97 11/08/24 19:47 97 11/08/24 19:00 66 27 H 109/54 L 99 11/08/24 18:00 70 15 110/57 L 99 11/08/24 17:58 97.8 F 68 17 114/58 L 98 11/08/24 17:00 11/08/24 17:00 62 24 111/51 L 96 11/08/24 16:30 97.9 F 72 16 108/52 L 94 L 11/08/24 16:25 97.6 F 68 16 111/61 96 11/08/24 16:00 95 11/08/24 16:00 65 11/08/24 16:00 96 11/08/24 16:00 97.8 F 67 21 126/59 L 96 11/08/24 15:25 97.6 F 70 15 119/52 L 95 11/08/24 15:00 11/08/24 15:00 76 24 121/63 96 11/08/24 14:25 97.4 F L 63 16 102/50 L 94 L 11/08/24 14:10 97.3 F L 65 15 109/47 L 94 L 11/08/24 14:00 68 26 H 106/51 L 85 L 11/08/24 13:55 97.6 F 64 15 103/45 L 94 L 11/08/24 13:40 97.7 F 63 16 102/44 L 93 L 11/08/24 13:35 97.7 F 65 17 92/42 L 93 L 11/08/24 13:30 97.8 F 65 18 101/45 L 97 11/08/24 13:25 97.4 F L 76 16 110/61 96 11/08/24 13:20 97.9 F 66 16 119/54 L 94 L 11/08/24 13:00 11/08/24 13:00 67 19 119/54 L 97 11/08/24 12:01 97.9 F 73 22 116/54 L 97 11/08/24 12:01 98.1 F 72 17 116/54 L 97 11/08/24 12:00 94 L 11/08/24 12:00 69 11/08/24 11:05 97.6 F 64 17 115/61 96 11/08/24 11:00 11/08/24 11:00 79 18 115/61 97 11/08/24 10:05 97.3 F L 72 17 126/52 L 95 11/08/24 10:00 72 23 119/51 L 96 11/08/24 09:50 97.6 F 75 18 119/51 L 96 11/08/24 09:35 98.0 F 75 17 128/57 L 98 11/08/24 09:20 98.4 F 71 17 134/61 96 11/08/24 09:15 97.8 F 70 17 131/71 97 11/08/24 09:10 97.7 F 76 17 133/60 99 11/08/24 09:05 98.0 F 71 18 144/64 H 95 11/08/24 09:00 11/08/24 09:00 69 19 144/64 H 99 11/08/24 08:55 97.7 F 77 16 150/73 H 98 O2 Del Method O2 Flow Rate 11/09/24 08:00 Room Air 11/09/24 08:00 11/09/24 07:55 Room Air 11/09/24 07:54 Room Air 11/09/24 07:43 Room Air 11/09/24 07:00 Room Air 11/09/24 07:00 Room Air 96 11/09/24 06:31 11/09/24 06:31 11/09/24 06:30 11/09/24 06:25 Nasal Cannula 2 11/09/24 06:15 11/09/24 06:00 11/09/24 06:00 11/09/24 06:00 Room Air 11/09/24 05:45 11/09/24 05:30 11/09/24 05:30 11/09/24 05:15 11/09/24 05:00 Room Air 11/09/24 05:00 11/09/24 05:00 Room Air 11/09/24 05:00 Room Air 11/09/24 04:01 Room Air 11/09/24 04:00 11/09/24 04:00 Room Air 11/09/24 04:00 Room Air 11/09/24 03:33 11/09/24 03:15 11/09/24 03:01 11/09/24 03:01 11/09/24 03:00 Room Air 11/09/24 03:00 Room Air 95 11/09/24 02:00 Nasal Cannula 2 11/09/24 02:00 11/09/24 01:00 Nasal Cannula 2 11/09/24 00:00 11/09/24 00:00 Nasal Cannula 2 11/09/24 00:00 11/09/24 00:00 Nasal Cannula 2 11/08/24 23:30 11/08/24 23:00 Nasal Cannula 2 11/08/24 23:00 Nasal Cannula 2 11/08/24 22:00 11/08/24 22:00 11/08/24 21:45 11/08/24 21:45 11/08/24 21:30 11/08/24 21:30 11/08/24 21:16 11/08/24 21:16 11/08/24 21:15 11/08/24 21:00 11/08/24 21:00 Nasal Cannula 2 11/08/24 21:00 Room Air 11/08/24 20:00 11/08/24 20:00 Room Air 11/08/24 19:47 Room Air 11/08/24 19:00 Nasal Cannula 1 11/08/24 18:00 Nasal Cannula 1 11/08/24 17:58 11/08/24 17:00 Nasal Cannula 1 11/08/24 17:00 Nasal Cannula 1 11/08/24 16:30 11/08/24 16:25 11/08/24 16:00 Nasal Cannula 1 11/08/24 16:00 11/08/24 16:00 Nasal Cannula 1 11/08/24 16:00 Nasal Cannula 1 11/08/24 15:25 11/08/24 15:00 Nasal Cannula 1 11/08/24 15:00 Nasal Cannula 1 11/08/24 14:25 11/08/24 14:10 11/08/24 14:00 Nasal Cannula 3 11/08/24 13:55 11/08/24 13:40 11/08/24 13:35 11/08/24 13:30 11/08/24 13:25 11/08/24 13:20 11/08/24 13:00 Nasal Cannula 1 11/08/24 13:00 Nasal Cannula 3 11/08/24 12:01 Nasal Cannula 3 11/08/24 12:01 11/08/24 12:00 Nasal Cannula 1 11/08/24 12:00 11/08/24 11:05 11/08/24 11:00 Nasal Cannula 1 11/08/24 11:00 Nasal Cannula 3 11/08/24 10:05 11/08/24 10:00 Nasal Cannula 3 11/08/24 09:50 11/08/24 09:35 11/08/24 09:20 11/08/24 09:15 11/08/24 09:10 11/08/24 09:05 11/08/24 09:00 Nasal Cannula 3 11/08/24 09:00 Nasal Cannula 3 11/08/24 08:55 Intake and Output 11/08/24 11/09/24 11/09/24 19:59 03:59 11:59 Intake Total 1253.75 / 1913.75 230 / 1913.75 430 / 1913.75 Output Total 675 / 1025 350 / 1025 0 / 1025 Balance 578.75 / 888.75 -120 / 888.75 430 / 888.75 Intake: Intake, Oral Amount 300 / 885 230 / 885 355 / 885 Intake, Oral Supplement Amount 75 / 75 Intake, Other Amount 225 / 225 Red Blood Cells Unit 150 / 150 [id number] Red Blood Cells Unit 75 / 75 [id number] Intake, Total IV Amount 228.75 / 228.75 0.9 % Sodium Chloride 250 ml @ 228.75 / 228.75 25 mls/hr IV .Q10H [facility] Rx#: [id number] Intake (Blood Product) Amt 500 / 500 Red Blood Cells Unit 250 / 250 [id number] Red Blood Cells Unit 250 / 250 [id number] Output: Output, Urine Amount 675 / 1025 350 / 1025 0 / 1025 Other: Intake, Other Source Red Blood Cells Unit Saline Solution [id number] Red Blood Cells Unit Saline Solution [id number] Number of Unmeasured Voids 1 1 1 Weight 120 lb 6.4 oz Patient Weight 11/09/24 11:59 Weight 120 lb 6.4 oz Laboratory Results - last 24 hr 11/08/24 06:25: Iron 32 L, TIBC 344, Iron Saturation 9.77242 L, Vitamin B12 184 L, Blood Type A Positive, Antibody Screen Negative, Crossmatch ([facility]) See Detail 11/08/24 11:01: POC Glucose 126 H 11/08/24 13:25: Chlamy pneumoniae PCR Not detected, Adenovirus (PCR) Not detected, B. pertussis DNA (PCR) Not detected, Coronavirus OC43 (PCR) Not detected, Coronavirus HKU1 (PCR) Not detected, Coronavirus 229E (PCR) Not detected, SARS-CoV-2 (PCR) Not detected, Coronavirus NL63 (PCR) Not detected, Human Metapneumovir PCR Not detected, Influenza A (H1) PCR Not detected, Influ A (H1N1/09) PCR Not detected, Influenza A (H3) PCR Not detected, Influenza Type A (PCR) Not detected, Influenza Type B (PCR) Not detected, M. pneumoniae (PCR) Not detected, Parainfluenza 1 (PCR) Not detected, Parainfluenza 2 (PCR) Not detected, Parainfluenza 3 (PCR) Not detected, Parainfluenza 4 (PCR) Not detected, RSV (PCR) Not detected, Entero/Rhino (PCR) Not detected 11/08/24 15:19: Sodium 140, Potassium 4.2 D, Chloride 100, Carbon Dioxide 31 H, Anion Gap 13.2, BUN 17, Creatinine 1.00, Estimated Creat Clear 36, Estimated GFR 53 L, Est GFR ( Amer) 64, Glucose 131 H D, Calcium 8.4 11/08/24 17:54: Hgb 10.9 L D, Hct 34.8 L I & O for Labs for Last 24 Hours: Intake & Output 11/06/24 11/07/24 11/08/24 11/09/24 11:59 11:59 11:59 11:59 Intake Total 211.667 / 923.195 0063.75 / 1913.75 Output Total 4500 / 4500 1025 / 1025 Balance -4288.333 / -4288.333 888.75 / 888.75 Weight 140 lb 120 lb 12.8 oz 120 lb 6.4 oz Constitutional: Present no acute distress Respiratory: Present normal respiratory effort Cardiac: Present Reg Rate and Rhythm Extremities: Present normal inspection and full ROM Skin: Present intact; Absent erythema Neuro: Present moves all extremities Assessment and Plan *Assessment and plan (1) Flash pulmonary edema: Status: Acute Category: Medical Code(s): J81.0 - Acute pulmonary edema (2) Acute hypoxic respiratory failure: Status: Acute Category: Medical Code(s): J96.01 - Acute respiratory failure with hypoxia (3) Acute hypercapnic respiratory failure: Status: Acute Category: Medical Code(s): J96.02 - Acute respiratory failure with hypercapnia (4) Elevated troponin I level: Status: Acute Category: Medical Code(s): R79.89 - Other specified abnormal findings of blood chemistry (5) Anemia: Status: Acute Qualifiers: Anemia type: iron deficiency Iron deficiency anemia type: unspecified iron deficiency Qualified Code(s): D50.9 - Iron deficiency anemia, unspecified Category: Medical Code(s): D64.9 - Anemia, unspecified (6) Generalized weakness: Status: Acute Category: Medical Code(s): R53.1 - Weakness (7) Chronic HFrEF (heart failure with reduced ejection fraction): Status: Acute Category: Medical Code(s): I50.22 - Chronic systolic (congestive) heart failure (8) Vitamin B12 deficiency: Status: Acute Category: Medical Code(s): E53.8 - Deficiency of other specified B group vitamins (9) Hypokalemia: Status: Resolved Category: Medical Code(s): E87.6 - Hypokalemia Plan Cardiology has seen the patient and they want to do a heart cath but would like for GI to see the patient first due to her anemia. Will get labs this am. Will move patient out of ICU. Will also check to see if they can do an overnight oximetry here before discharge as she may need oxygen overnight at home. Hypokalemia corrected. Will decrease p.o. dose. B12 ordered IM and p.o.
[2024-11-09 09:08] LABS: Hematocrit 37.3 % (37.0-47.0); Hemoglobin 11.7 g/dL (12.2-16.2); Immature Granulocytes % 0.2 %; Mean Corpuscular HGB Conc 31.4 g/dL (31.8-35.4); Mean Corpuscular Hemoglobin 25.1 pg (27.0-31.2); Mean Corpuscular Volume 80.0 fl (81-99); Nucleated Red Blood Cells % 0 %; Platelet Count 259 K/mm3 (142-424); Red Blood Count 4.66 M/mm3 (4.20-5.40); Red Cell Distribution Width-SD 53.9 fL; White Blood Count 8.4 K/mm3 (4.8-10.8)
[2024-11-09] MEDS: VITAMIN B-12 1,000 MCG 1ML VIAL 1000 MCG IM (09:28)
[2024-11-09 09:37] LABS: Alanine Aminotransferase 17 U/L (12-78); Albumin Level 3.6 g/dl (3.5-5.0); Albumin/Globulin Ratio 1.1 (1.1-1.8); Alkaline Phosphatase 83 U/L (38-126); Anion Gap 10.6 mEq/L (5-15); Aspartate Amino Transferase 29 U/L (14-36); Bilirubin,Total 1.5 mg/dl (0.2-1.3); Blood Urea Nitrogen 17 mg/dl (7-17); Calcium 8.3 mg/dl (8.4-10.2); Carbon Dioxide 29 mmol/L (22.0-30.0); Chloride 101 mmol/L (98-107); Creatinine Clearance Estimated 33 mL/min (50-200); Creatinine,Serum 1.10 mg/dl (0.52-1.04); Estimated Glomerular Filt Rate 47 ml/min (>60); GFR (African American) 57 ML/MIN (>60); Globulin 3.4 g/dL (1.3-3.2); Glucose 164 mg/dl (74-100); Potassium 3.6 mmoL/L (3.5-5.1); Sodium 137 mmol/L (136-145); Total Protein,Serum 7.0 g/dl (6.3-8.2)
--- NOTE | 2024-11-09 09:51 | P.PN_ITS ---
Subjective *Date: 11/09/24 *Time: 13:05 Interval history: No acute respiratory events overnight. Patient admits continued improvement in her respiratory symptoms. Pulmonology Exam Inpatient Vital signs and Labs for Last 24 Hours: Temp Pulse Resp BP Pulse Ox O2 Del Method O2 Flow Rate 98.3 F 70 18 127/64 91 L Room Air 96 11/09/24 08:00 11/09/24 09:00 11/09/24 09:00 11/09/24 09:00 11/09/24 09:00 11/09/24 09:00 11/09/24 07:00 FiO2 40 11/08/24 05:00 Laboratory Results - last 24 hr 11/08/24 06:25: Iron 32 L, TIBC 344, Iron Saturation 9.52042 L, Blood Type A Positive, Antibody Screen Negative, Crossmatch (AHG) See Detail 11/08/24 11:01: POC Glucose 126 H 11/08/24 13:25: Chlamy pneumoniae PCR Not detected, Adenovirus (PCR) Not detected, B. pertussis DNA (PCR) Not detected, Coronavirus OC43 (PCR) Not detected, Coronavirus HKU1 (PCR) Not detected, Coronavirus 229E (PCR) Not detected, SARS-CoV-2 (PCR) Not detected, Coronavirus NL63 (PCR) Not detected, Human Metapneumovir PCR Not detected, Influenza A (H1) PCR Not detected, Influ A (H1N1/09) PCR Not detected, Influenza A (H3) PCR Not detected, Influenza Type A (PCR) Not detected, Influenza Type B (PCR) Not detected, M. pneumoniae (PCR) Not detected, Parainfluenza 1 (PCR) Not detected, Parainfluenza 2 (PCR) Not detected, Parainfluenza 3 (PCR) Not detected, Parainfluenza 4 (PCR) Not detected, RSV (PCR) Not detected, Entero/Rhino (PCR) Not detected 11/08/24 15:19: Sodium 140, Potassium 4.2 D, Chloride 100, Carbon Dioxide 31 H, Anion Gap 13.2, BUN 17, Creatinine 1.00, Estimated Creat Clear 36, Estimated GFR 53 L, Est GFR ( Amer) 64, Glucose 131 H D, Calcium 8.4 11/08/24 17:54: Hgb 10.9 L D, Hct 34.8 L 09/17/25 09:02: WBC 8.4, RBC 4.66 D, Hgb 11.7 L, Hct 37.3, MCV 80.0 L, MCH 25.1 L, MCHC 31.4 L, RDW 18.7 H, Plt Count 259, MPV 8.8, Neut % (Auto) 79.4, Lymph % (Auto) 9.2 L, Blair % (Auto) 8.5, Eos % (Auto) 2.0, Baso % (Auto) 0.7, Neut # (Auto) 6.7, Lymph # (Auto) 0.8, Blair # (Auto) 0.7, Eos # (Auto) 0.2, Baso # (Auto) 0.1, Sodium 137, Potassium 3.6, Chloride 101, Carbon Dioxide 29, Anion Gap 10.6, BUN 17, Creatinine 1.10 H, Estimated Creat Clear 33, Estimated GFR 47 L, Est GFR ( Amer) 57 L, Glucose 164 H D, Calcium 8.3 L, Total Bilirubin 1.5 H, AST 29, ALT 17 D, Alkaline Phosphatase 83, Total Protein 7.0, Albumin 3.6, Globulin 3.4 H, Albumin/Globulin Ratio 1.1 Temp Pulse Resp BP Pulse Ox O2 Del Method O2 Flow Rate 98.4 F 71 17 134/61 96 Nasal Cannula 3 11/08/24 09:20 11/08/24 09:20 11/08/24 09:20 11/08/24 09:20 11/08/24 09:20 11/08/24 08:00 11/08/24 08:00 FiO2 40 11/08/24 05:00 Laboratory Results - last 24 hr 11/07/24 10:20: WBC 14.2 H, RBC 3.47 L, Hgb 8.1 L, Hct 27.6 L, MCV 79.5 L, MCH 23.3 L, MCHC 29.3 L, RDW 17.2, Plt Count 421, MPV 9.5, Neut % (Auto) 65.9, Lymph % (Auto) 24.3, Blair % (Auto) 6.5, Eos % (Auto) 1.6, Baso % (Auto) 1.3, Neut # (Auto) 9.3 H, Lymph # (Auto) 3.4, Blair # (Auto) 0.9, Eos # (Auto) 0.2, Baso # (Auto) 0.2, Sodium 140, Potassium 3.6, Chloride 106, Carbon Dioxide 22, Anion Gap 15.6 H, BUN 16, Creatinine 1.10 H, Estimated Creat Clear 38, Estimated GFR 47 L, Est GFR ( Amer) 57 L, Glucose 270 H, Calcium 8.4, Magnesium 1.8, Total Bilirubin 0.9, AST 28, ALT 25, Alkaline Phosphatase 102, Troponin I < 0.01, NT-Pro-B Natriuret Pep 38086 H, Total Protein 7.5, Albumin 4.0, Globulin 3.5 H, Albumin/Globulin Ratio 1.1, TSH 3.28, HIV Ag/Ab Combo Qual Negative 11/07/24 10:48: VBG pH 7.16 L, VBG pCO2 61.2 H, VBG pO2 60.4 H, VBG HCO3 21.5 L, VBG Total CO2 23.4, VBG O2 Saturation 82.2 H, VBG Base Excess -7.1 L, VBG Lactic Acid 5.2 H 11/07/24 14:38: Troponin I 0.04 H 11/07/24 16:43: VBG pH 7.46 H, VBG pCO2 39.7, VBG pO2 51.4 H, VBG HCO3 27.6, VBG Total CO2 28.8 H, VBG O2 Saturation 87.2 H, VBG Base Excess 3.8 H, VBG Lactic Acid 1.4, Lactate 1.1, Troponin I 0.06 H 11/07/24 18:52: HCV Ab EMETERIO w/Rflx PCR Qn Negative 11/08/24 04:35: WBC 8.1 D, RBC 2.99 L, Hgb 6.9 L, Hct 22.7 L, MCV 75.9 L, MCH 23.1 L, MCHC 30.4 L, RDW 17.0, Plt Count 265 D, MPV 9.4, Neut % (Auto) 72.3, Lymph % (Auto) 14.9, Blair % (Auto) 10.5 H, Eos % (Auto) 0.9, Baso % (Auto) 1.0, Neut # (Auto) 5.9, Lymph # (Auto) 1.2, Blair # (Auto) 0.9, Eos # (Auto) 0.1, Baso # (Auto) 0.1, Sodium 140, Potassium 2.8 L* D, Chloride 105, Carbon Dioxide 31 H, Anion Gap 6.8, BUN 15, Creatinine 0.90, Estimated Creat Clear 40, Estimated GFR 60, Est GFR ( Amer) 72 D, Glucose 96 D, Calcium 8.0 L 11/08/24 06:25: Retic Count (auto) 1.4, Vitamin B12 184 L, Folate 14.10, Blood Type A Positive, Antibody Screen Negative, Crossmatch (AHG) See Detail 11/08/24 08:25: VBG pH 7.43 H, VBG pCO2 50.5, VBG pO2 33.6, VBG HCO3 32.4 H, VBG Total CO2 33.9 H, VBG O2 Saturation 61.1, VBG Base Excess 8.0 H, VBG Lactic Acid 1.7 I & O for Labs for Last 24 Hours: Intake & Output 11/06/24 11/07/24 11/08/24 11/09/24 23:59 23:59 23:59 23:59 Intake Total 120 / 120 1345.417 / 1575.417 660 / 660 Output Total 3850 / 4150 1325 / 1675 350 / 350 Balance -3730 / -4030 20.417 / -99.583 310 / 310 Weight 134 lb 8 oz 120 lb 12.8 oz 120 lb 6.4 oz Intake & Output 11/05/24 11/06/24 11/07/24 11/08/24 23:59 23:59 23:59 23:59 Intake Total 120 / 120 91.667 / 91.667 Output Total 3850 / 4150 650 / 650 Balance -3730 / -4030 -558.333 / -558.333 Weight 134 lb 8 oz 120 lb 12.8 oz Constitutional: Present mild distress Head: Present normocephalic and atraumatic ENT: Present normal exam, normal oropharynx and mucous membranes moist Neck: Present normal inspection and full ROM Respiratory: Present respiratory distress and able to speak in complete sentences; Absent rhonchi, wheezes or diminished air movement Cardiac: Present S1/S2, Tachycardia and radial pulses present GI: Present soft and distention; Absent tenderness or guarding Rectal (female): Present deferred (female): Present deferred Skin: Present intact; Absent cyanosis or jaundice Neuro: Present alert, awake and oriented x 3 Extremities: Present normal inspection; Absent clubbing or cyanosis Psychiatric: Present normal affect and cooperative Assessment and Plan *Assessment and plan (1) Acute hypercapnic respiratory failure: Status: Acute Category: Medical Code(s): J96.02 - Acute respiratory failure with hypercapnia (2) Acute hypoxic respiratory failure: Status: Acute Category: Medical Code(s): J96.01 - Acute respiratory failure with hypoxia (3) Pneumonia: Status: Acute Category: Medical Code(s): J18.9 - Pneumonia, unspecified organism (4) Bilateral pleural effusion: Status: Acute Category: Medical Code(s): J90 - Pleural effusion, not elsewhere classified Plan Ms. Najera is a 84-year-old female no significant smoking history, no prior respiratory complaints, questionable of prior history of asthma, hypertension CAD heart failure reduced EF at 25% presented to the ER with worsening respiratory distress and pulmonary was called for further evaluation and manag ement. Patient admitted also noted to hypercarbic respiratory failure needing noninvasive ventilatory support. Afebrile. Hemodynamically stable. Neutrophilic predominant leukocytosis upon admission improving. Blood gas upon admission hypercarbic respiratory failure with pH of 7.16 and pCO2 61.8, improved. CTA upon admission no pulmonary embolism. Bilateral diffuse patchy airspace disease prominent upper lobe right greater than left along with moderate right pleural effusion and small left pleural effusion. On initial examination moderate respiratory distress. No significant wheezing noted on auscultation. Weaned to room air with saturations maintained at 95% and above. Patient admits significant improvement in her respiratory symptoms over the weekend. Interval update: No acute respiratory vents overnight. Continue to remain on room air. Receiving levofloxacin. Respiratory viral PCR panel negative. Nasal MRSA PCR positive. Follow with repeat chest x-ray. Plan: Follow-up with repeat chest x-ray DuoNebs 6 hours only on as-needed basis. Patient and patient admits not using any inhaler therapy. Oxygen supplementation on as-needed basis to maintain O2 saturation above 90% and Continue levofloxacin to complete a total of 5-day course Volume optimization as per primary team and cardiology # Thank you for involving pulmonary in this patient care. Will continue to follow.
--- NOTE | 2024-11-09 09:52 | XR_ITS ---
FINAL REPORT CLINICAL HISTORY: SOB COMPARISON: 11/07/2024 FINDINGS: A single frontal view of the chest was obtained. There are stable increased markings in the right lung base compatible with pneumonia and right pleural effusion. There is a small left pleural effusion. Mediastinum is unremarkable. Heart size is normal. IMPRESSION: No significant change from prior exam. Reviewed, Interpreted and Dictated by Denys Townsend MD Transcribed by Sharon Pope Authenticated and [facility]
--- NOTE | 2024-11-09 11:04 | PC.NURSE ---
pt left the ICU with ICU staff to transfer to the [facility] floor
--- NOTE | 2024-11-09 11:06 | EXP.CARD.PN ---
Subjective Subjective Date: 11/09/24 Time: 11:06 Principal diagnosis: CHF, anemia Interval history: 84-year-old white female in bed in the ICU in no acute distress. States she is feeling better after getting a single unit of blood transfused yesterday. Her hemoglobin responded from 6.9 up to 11.7 this morning. She is noted to be iron deficient with low B12 but normal folate. Potassium has improved to 3.6 BUN is 17 with creatinine of 1.1 Exam Data for Last 24 hours Vital signs and Labs for Last 24 Hours: Temp Pulse Resp BP Pulse Ox O2 Del Method O2 Flow Rate 98.3 F 70 18 127/64 91 L Room Air 96 11/09/24 08:00 11/09/24 09:00 11/09/24 09:00 11/09/24 09:00 11/09/24 09:00 11/09/24 09:00 11/09/24 07:00 FiO2 40 11/08/24 05:00 Laboratory Results - last 24 hr 11/08/24 06:25: Iron 32 L, TIBC 344, Iron Saturation 9.61609 L, Blood Type A Positive, Antibody Screen Negative, Crossmatch (AHG) See Detail 11/08/24 11:01: POC Glucose 126 H 11/08/24 13:25: Chlamy pneumoniae PCR Not detected, Adenovirus (PCR) Not detected, B. pertussis DNA (PCR) Not detected, Coronavirus OC43 (PCR) Not detected, Coronavirus HKU1 (PCR) Not detected, Coronavirus 229E (PCR) Not detected, SARS-CoV-2 (PCR) Not detected, Coronavirus NL63 (PCR) Not detected, Human Metapneumovir PCR Not detected, Influenza A (H1) PCR Not detected, Influ A (H1N1/09) PCR Not detected, Influenza A (H3) PCR Not detected, Influenza Type A (PCR) Not detected, Influenza Type B (PCR) Not detected, M. pneumoniae (PCR) Not detected, Parainfluenza 1 (PCR) Not detected, Parainfluenza 2 (PCR) Not detected, Parainfluenza 3 (PCR) Not detected, Parainfluenza 4 (PCR) Not detected, RSV (PCR) Not detected, Entero/Rhino (PCR) Not detected 11/08/24 15:19: Sodium 140, Potassium 4.2 D, Chloride 100, Carbon Dioxide 31 H, Anion Gap 13.2, BUN 17, Creatinine 1.00, Estimated Creat Clear 36, Estimated GFR 53 L, Est GFR ( Amer) 64, Glucose 131 H D, Calcium 8.4 11/08/24 17:54: Hgb 10.9 L D, Hct 34.8 L 11/09/24 09:02: WBC 8.4, RBC 4.66 D, Hgb 11.7 L, Hct 37.3, MCV 80.0 L, MCH 25.1 L, MCHC 31.4 L, RDW 18.7 H, Plt Count 259, MPV 8.8, Neut % (Auto) 79.4, Lymph % (Auto) 9.2 L, [place]dwell % (Auto) 8.5, Eos % (Auto) 2.0, Baso % (Auto) 0.7, Neut # (Auto) 6.7, Lymph # (Auto) 0.8, [place]dwell # (Auto) 0.7, Eos # (Auto) 0.2, Baso # (Auto) 0.1, Sodium 137, Potassium 3.6, Chloride 101, Carbon Dioxide 29, Anion Gap 10.6, BUN 17, Creatinine 1.10 H, Estimated Creat Clear 33, Estimated GFR 47 L, Est GFR ( Amer) 57 L, Glucose 164 H D, Calcium 8.3 L, Total Bilirubin 1.5 H, AST 29, ALT 17 D, Alkaline Phosphatase 83, Total Protein 7.0, Albumin 3.6, Globulin 3.4 H, Albumin/Globulin Ratio 1.1 I & O for Last 24 hours: Intake & Output 11/06/24 11/07/24 11/08/24 11/09/24 11:59 11:59 11:59 11:59 Intake Total 211.667 / 153.893 7294.75 / 1913.75 Output Total 4500 / 4500 1025 / 1025 Balance -4288.333 / -4288.333 888.75 / 888.75 Weight 140 lb 120 lb 12.8 oz 120 lb 6.4 oz Microbiology Reports for the Last 24 Hours: Microbiology 11/08/24 13:25 Nose MRSA Culture - Final 11/07/24 14:00 Anus CRE Surveillance Culture - Final Negative Constitutional Constitutional: no acute distress *Routine Respiratory Exam Respiratory: Present CTA bilaterally *Routine Cardiovascular Exam Cardiovascular: Present RRR and murmur; Absent gallop or rubs *Routine Extremities Exam Extremities: Absent edema *Routine Neurological Exam Neurological: Present alert, oriented X3 and CN II-XII intact Progress Note: A&P Assessment and plan (1) Flash pulmonary edema: Status: Acute (2) Acute on chronic heart failure with reduced ejection fraction (HFrEF, <= 40%): Status: Acute (3) Acute hypercapnic respiratory failure: Status: Acute (4) Acute hypoxic respiratory failure: Status: Acute (5) Pneumonia: Status: Acute (6) Acute non-ST elevation myocardial infarction (NSTEMI): Status: Resolved (7) Anemia: Status: Acute (8) CKD (chronic kidney disease) stage 3, GFR 30-59 ml/min: Status: Inactive (9) Coronary artery disease: Status: Inactive (10) HTN (hypertension): Status: Acute Assessment and Plan Assessment and Plan for All Diagnoses:: 1. Flash pulmonary edema/acute on chronic HFrEF -Patient has diuresed 4 L with improvement in symptoms -Currently on Coreg, Entresto, spironolactone with PRN lasix -received IV lasix yesterday with BUN 17, Cr 1.1 today. -Echo confirms chronic EF of 25% 2. Acute hypoxic/hypercapnic respiratory failure with Pneumonia -On supplemental oxygen -Pulmonary following -IV levofloxacine 3. Elevated troponin, likely secondary to demand ischemia the patient has previous coronary artery disease. -Recommend proceeding with cardiac cath to assess history of LAD stenting in 01/2023 with elevated troponins this admit -On ASA and plavix -on statin with LDL 36 in 04/2024 4. Recurrent anemia with microcytic indices -Received one unit PRBC's with Hgb up to 11.7 -workup in progress with consult to GI 5. Hypokalemia, K of 2.8, resolved now with K of 3.6 -Replacement ongoing 6. Restless legs -Ropinirole ordered GI consulted today. Planning EGD in AM. Plan cardiac cath on Thursday pending results of EGD. No IV diuretics today
--- NOTE | 2024-11-09 11:14 | PC.NURSE ---
Report called to BRITTNI Henry
[2024-11-09 11:44] LABS: NT Pro Brain Natriuretic Pep. 7060 pg/mL (0-450)
--- NOTE | 2024-11-09 11:50 | EXP.GE.CONS ---
History of Present Illness *Admission Date: 11/07/24 *History of present illness: Ms. Najera is an 84-year-old female with with a history of hypertension, hyperlipidemia, ASCVD, NSTEMI in 2022, and ischemic cardiomyopathy with an ejection fraction of 25% who presented to [facility] emergency room for evaluation after experiencing sudden onset of extreme shortness of breath. Patient states she had had no previous problems this morning until this occurred. She also described a good day yesterday. She denies having any associated chest pain, palpitations or other respiratory symptoms. EMS found her in a tripod position and gasping for air on their arrival. O2 sat was 76%. She was placed on CPAP enroute to the hospital. With her evaluation in the emergency room she was found to be hypoxic in hypercapnic respiratory failure with acidosis. The patient dramatically improved from a mental status point with oxygenation. She remained somnolent and she was put on BiPAP. CTA of the chest revealed multifocal airspace opacities in the right lung consistent with pneumonia and no pulmonary embolism. Moderate bilateral pleural effusions which were noted to be increased since the prior exam of 05/18/2024. Chest x-ray revealed mild CHF.Lactate did improve to 1.1. Troponin I increased to 0.04 and then 0.06. ABGs also improved with venous blood gas showing a pH of 7.46 and a pO2 of 51.4. With this exam patient states she feels much better. They have removed her BiPAP and she is on O2 at 3 L/min. She denies any chest pain and shortness of breath. She states she never had a fever or cold symptoms at home. She had been eating and drinking well. She was been able to ambulate at home without difficulty. She does have a sitter 15/09. per H&P This is a pleasant 84-year-old female who was initially admitted for above symptoms. Patient was found to be anemic upon initial arrival with a hemoglobin of 8.1. This subsequently dropped to 6.9. She is status post 2 units packed red cells and hemoglobin is up to 11.7. Anemia was microcytic and hypochromic with an iron level of 32, percent sat low at 9.3%. She also happens to have a B12 low at 184. The patient denies any melena or hematochezia that she has seen at home. She was admitted back in April and found to be anemic and received 2 units packed red cells at that time as well. Patient's last colonoscopy was 2 years ago at [place] and she denies any polyps. She denies any family history of colon cancer or other GI cancers, IBD or celiac disease. She has never had an EGD. She does report some nausea in the past couple of weeks she denies alcohol or NSAID use. Patient feels significantly better today. She is able to hold on a full conversation without SOA. She denies any current shortness of breath, chest pain or other concerns. [facility] Disclaimer: The information contained in this section may have been updated after the patient was seen, as this information can be updated by other users. Medical History (Updated 11/09/24 @ 11:50 by Belle Jimenez APRN) Vitamin B12 deficiency Pneumonia Awa UTI Adnexal mass TIA (transient ischemic attack) Abnormal CT scan of head Lesion of ovary Urinary tract infectious disease Adnexal cyst Cystitis Chronic pyelonephritis Acute pyelonephritis YAMEL (acute kidney injury) Acute nontraumatic kidney injury Pessary maintenance Uterine prolapse Prolapse of anterior vaginal wall Pyelonephritis GI bleed Chronic constipation CKD (chronic kidney disease) stage 3, GFR 30-59 ml/min Coronary artery disease Ischemic cardiomyopathy ASCVD (arteriosclerotic cardiovascular disease) Systolic heart failure Cardiomyopathy CHF (congestive heart failure) HLD (hyperlipidemia) Hypertension Left bundle branch block (LBBB) determined by electrocardiography NSTEMI (non-ST elevated myocardial infarction) Surgical History History of cardiac cath S/P partial hysterectomy Family History No significant family history Social History Smoking Status: Never smoker alcohol intake: never current occupational status: retired Travel in the last 8 weeks?: None Have you lived/traveled outside US in past 30 days?: No Contact w/someone who lives/traveled outside US past 30 days?: No Exposure to someone with infectious disease in past 14 days?: No Do you have a fever (greater than 100.4 F or 38 C)?: No Have you tested positive for COVID-19?: No Exposed to someone with COVID-19 in past 14 days?: No Do you have a sore throat?: No Do you have a cough?: No Do you have any weakness?: No Do you have any diarrhea?: No Are you experiencing any unusual bleeding?: No Do you have any muscle aches/pain?: No Do you have any abdominal pain?: No Are you experiencing loss of taste or smell?: No Review of Systems Constitutional Constitutional: Denies frequent falls and Denies headache(s) ENT Ears, Nose, Mouth, and Throat: Denies headache(s) *Neurologic Neurologic: Reports confusion, Denies frequent falls and Denies headache(s) Psychiatric Psychiatric: Reports confusion Meds Home Medications and Allergies Home Medications ?Medication ?Instructions ?Recorded ?Confirmed ?Type aspirin 81 mg chewable tablet 81 mg PO DAILY 03/11/23 11/07/24 History atorvastatin 40 mg tablet 40 mg PO HS 03/11/23 11/07/24 History carvedilol 3.125 mg tablet 3.125 mg PO BID 03/11/23 11/07/24 History clonazepam 1 mg tablet 1 mg PO HSP PRN Insomnia 12/16/23 11/07/24 History clopidogrel 75 mg tablet 75 mg PO DAILY 05/26/24 11/07/24 History amlodipine 5 mg tablet 5 mg PO DAILY 11/07/24 11/07/24 History ondansetron 4 mg disintegrating 4 mg PO Q8HP PRN Nausea And 11/07/24 11/07/24 History tablet Vomiting ropinirole 3 mg tablet 3 mg PO HS 11/07/24 11/07/24 History sacubitril 24 mg-valsartan 26 mg 1 tab PO BID 11/07/24 11/07/24 History tablet (Entresto) tramadol 50 mg tablet 50 mg PO Q6HP PRN Moderate Pain 11/07/24 11/07/24 History (Scale Score 5-6) New Prescriptions to Start Prescriptions: Allergies Allergy/AdvReac Type Severity Reaction Status Date / Time promethazine Allergy Intermediate severe Verified 11/07/24 14:15 vomiting Penicillins Allergy Unknown Verified 11/07/24 14:15 allergy reaction Sulfa (Sulfonamide Allergy Unknown Verified 11/07/24 14:15 Antibiotics) allergy reaction triprolidine Allergy Unknown Verified 11/07/24 14:15 allergy reaction Exam (Inpt) Vital signs and Labs for Last 24 Hours: Temp Pulse Resp BP Pulse Ox O2 Del Method O2 Flow Rate 98.3 F 70 18 127/64 91 L Room Air 96 11/09/24 08:00 11/09/24 09:00 11/09/24 09:00 11/09/24 09:00 11/09/24 09:00 11/09/24 11:00 11/09/24 07:00 FiO2 40 11/08/24 05:00 Laboratory Results - last 24 hr 11/08/24 06:25: Iron 32 L, TIBC 344, Iron Saturation 9.72775 L, Blood Type A Positive, Antibody Screen Negative, Crossmatch (AHG) See Detail 11/08/24 13:25: Chlamy pneumoniae PCR Not detected, Adenovirus (PCR) Not detected, B. pertussis DNA (PCR) Not detected, Coronavirus OC43 (PCR) Not detected, Coronavirus HKU1 (PCR) Not detected, Coronavirus 229E (PCR) Not detected, SARS-CoV-2 (PCR) Not detected, Coronavirus NL63 (PCR) Not detected, Human Metapneumovir PCR Not detected, Influenza A (H1) PCR Not detected, Influ A (H1N1/09) PCR Not detected, Influenza A (H3) PCR Not detected, Influenza Type A (PCR) Not detected, Influenza Type B (PCR) Not detected, M. pneumoniae (PCR) Not detected, Parainfluenza 1 (PCR) Not detected, Parainfluenza 2 (PCR) Not detected, Parainfluenza 3 (PCR) Not detected, Parainfluenza 4 (PCR) Not detected, RSV (PCR) Not detected, Entero/Rhino (PCR) Not detected 11/08/24 15:19: Sodium 140, Potassium 4.2 D, Chloride 100, Carbon Dioxide 31 H, Anion Gap 13.2, BUN 17, Creatinine 1.00, Estimated Creat Clear 36, Estimated GFR 53 L, Est GFR ( Amer) 64, Glucose 131 H D, Calcium 8.4 11/08/24 17:54: Hgb 10.9 L D, Hct 34.8 L 11/09/24 09:02: WBC 8.4, RBC 4.66 D, Hgb 11.7 L, Hct 37.3, MCV 80.0 L, MCH 25.1 L, MCHC 31.4 L, RDW 18.7 H, Plt Count 259, MPV 8.8, Neut % (Auto) 79.4, Lymph % (Auto) 9.2 L, [place] % (Auto) 8.5, Eos % (Auto) 2.0, Baso % (Auto) 0.7, Neut # (Auto) 6.7, Lymph # (Auto) 0.8, [place] # (Auto) 0.7, Eos # (Auto) 0.2, Baso # (Auto) 0.1, Sodium 137, Potassium 3.6, Chloride 101, Carbon Dioxide 29, Anion Gap 10.6, BUN 17, Creatinine 1.10 H, Estimated Creat Clear 33, Estimated GFR 47 L, Est GFR ( Amer) 57 L, Glucose 164 H D, Calcium 8.3 L, Total Bilirubin 1.5 H, AST 29, ALT 17 D, Alkaline Phosphatase 83, Total Protein 7.0, Albumin 3.6, Globulin 3.4 H, Albumin/Globulin Ratio 1.1 I & O for Labs for Last 24 Hours: Intake & Output 11/06/24 11/07/24 11/08/24 11/09/24 11:59 11:59 11:59 11:59 Intake Total 862.059 5569.75 Output Total 4500 1025 Balance -4288.333 888.75 Weight 63.503 kg 54.794 kg 54.613 kg Microbiology Reports for the Last 24 Hours: Microbiology 11/08/24 13:25 Nose MRSA Culture - Final 11/07/24 14:00 Anus CRE Surveillance Culture - Final Negative Constitutional: no acute distress, average body habitus and cooperative Head: Present normocephalic and atraumatic Neck: Present normal inspection Respiratory: Present CTA bilaterally Cardiac: Present Reg Rate and Rhythm GI: Present soft; Absent distention or tenderness Extremities: Present normal inspection Skin: Present intact Results Labs 11/09/24 09:02 11/09/24 09:02 Labs: Laboratory Results - last 24 hr 11/08/24 06:25: Iron 32 L, TIBC 344, Iron Saturation 9.73370 L, Blood Type A Positive, Antibody Screen Negative, Crossmatch (AHG) See Detail 11/08/24 13:25: Chlamy pneumoniae PCR Not detected, Adenovirus (PCR) Not detected, B. pertussis DNA (PCR) Not detected, Coronavirus OC43 (PCR) Not detected, Coronavirus HKU1 (PCR) Not detected, Coronavirus 229E (PCR) Not detected, SARS-CoV-2 (PCR) Not detected, Coronavirus NL63 (PCR) Not detected, Human Metapneumovir PCR Not detected, Influenza A (H1) PCR Not detected, Influ A (H1N1/09) PCR Not detected, Influenza A (H3) PCR Not detected, Influenza Type A (PCR) Not detected, Influenza Type B (PCR) Not detected, M. pneumoniae (PCR) Not detected, Parainfluenza 1 (PCR) Not detected, Parainfluenza 2 (PCR) Not detected, Parainfluenza 3 (PCR) Not detected, Parainfluenza 4 (PCR) Not detected, RSV (PCR) Not detected, Entero/Rhino (PCR) Not detected 11/08/24 15:19: Sodium 140, Potassium 4.2 D, Chloride 100, Carbon Dioxide 31 H, Anion Gap 13.2, BUN 17, Creatinine 1.00, Estimated Creat Clear 36, Estimated GFR 53 L, Est GFR ( Amer) 64, Glucose 131 H D, Calcium 8.4 11/08/24 17:54: Hgb 10.9 L D, Hct 34.8 L 11/09/24 09:02: WBC 8.4, RBC 4.66 D, Hgb 11.7 L, Hct 37.3, MCV 80.0 L, MCH 25.1 L, MCHC 31.4 L, RDW 18.7 H, Plt Count 259, MPV 8.8, Neut % (Auto) 79.4, Lymph % (Auto) 9.2 L, [place] % (Auto) 8.5, Eos % (Auto) 2.0, Baso % (Auto) 0.7, Neut # (Auto) 6.7, Lymph # (Auto) 0.8, [place] # (Auto) 0.7, Eos # (Auto) 0.2, Baso # (Auto) 0.1, Sodium 137, Potassium 3.6, Chloride 101, Carbon Dioxide 29, Anion Gap 10.6, BUN 17, Creatinine 1.10 H, Estimated Creat Clear 33, Estimated GFR 47 L, Est GFR ( Amer) 57 L, Glucose 164 H D, Calcium 8.3 L, Total Bilirubin 1.5 H, AST 29, ALT 17 D, Alkaline Phosphatase 83, Total Protein 7.0, Albumin 3.6, Globulin 3.4 H, Albumin/Globulin Ratio 1.1 Assessment and Plan *Assessment and plan (1) Iron deficiency anemia: Status: Acute Category: Medical Code(s): D50.9 - Iron deficiency anemia, unspecified Plan 1. Iron deficiency anemia Hemoglobin of this hospitalization dropped from 8.1 down to 6.9. Status post 2 units packed red blood cells. She did have another episode of iron deficiency anemia back in April requiring 2 units packed red cells then as well. It is microcytic and hypochromic with a low iron levels. She also has low B12 levels at 184. Has never had an EGD. Denies melena or hematochezia. Did have colonoscopy 2 years ago at [place]. She denies any polyps no family history of colon cancer. Will plan on scheduling EGD tomorrow and n.p.o. after midnight. Discussed plan and reasoning with patient at bedside.
[2024-11-09] MEDS: POTASSIUM CHLORIDE 10MEQ CAPSULE.ER 10 MEQ PO (20:59)
[2024-11-09] MEDS: ATORVASTATIN 40MG TABLET 40 MG PO (21:00)
--- NOTE | 2024-11-09 23:00 | PC.NURSE ---
RESP CARE NOTE: Pt placed on overnight pulse ox at this time
[2024-11-10] VITALS (16 sets, daily range): BP systolic 98–139; BP diastolic 41–78; PULSE 70–90; RESP 16–18; TEMP 36.4–36.8; O2SAT 94–100; BMI 18.8
[2024-11-10] MEDS: SENNOSIDES 8.6MG/DOCUSATE 50MG TABLET 1 TAB PO ×3 (02:39→20:25)
--- NOTE | 2024-11-10 06:19 | PC.NURSE ---
patient reports no bm for several days - she wanted bm meds to help her sleep - contacted linda for senna order bc she stated she takes that at home - pt took senna.
--- NOTE | 2024-11-10 08:17 | P.PN_ITS ---
Subjective *Date: 11/10/24 *Time: 12:58 Interval history: The patient is scheduled for an EGD this am. She states she is exhausted because she has not slept in 3 days. Nothing seems to help her restless leg and she is now constipated. Medical Exam Vital signs and Labs for Last 24 Hours: Vital Signs Temp Pulse Pulse Resp BP BP Pulse Ox 11/10/24 08:00 97.7 F 82 16 128/78 100 11/10/24 07:51 11/10/24 06:50 11/10/24 05:00 11/10/24 04:00 97.9 F 79 16 139/70 94 L 11/10/24 03:00 11/10/24 01:00 11/10/24 00:00 98 11/10/24 00:00 98 F 73 16 138/60 100 11/09/24 23:00 11/09/24 21:00 11/09/24 20:00 97.8 F 80 16 109/62 L 96 11/09/24 17:26 11/09/24 17:00 11/09/24 16:00 98.3 F 72 17 123/60 99 11/09/24 15:00 11/09/24 12:00 98.1 F 67 16 133/65 98 11/09/24 11:59 11/09/24 11:00 11/09/24 09:00 11/09/24 09:00 70 18 127/64 91 L O2 Del Method 11/10/24 08:00 Room Air 11/10/24 07:51 Room Air 11/10/24 06:50 Room Air 11/10/24 05:00 Room Air 11/10/24 04:00 Room Air 11/10/24 03:00 Room Air 11/10/24 01:00 Room Air 11/10/24 00:00 Room Air 11/10/24 00:00 Room Air 11/09/24 23:00 Room Air 11/09/24 21:00 Room Air 11/09/24 20:00 Room Air 11/09/24 17:26 Room Air 11/09/24 17:00 Room Air 11/09/24 16:00 Room Air 11/09/24 15:00 Room Air 11/09/24 12:00 Room Air 11/09/24 11:59 Room Air 11/09/24 11:00 Room Air 11/09/24 09:00 Room Air 11/09/24 09:00 Room Air Intake and Output 11/09/24 11/10/24 11/10/24 19:59 03:59 11:59 Intake Total 840 / 870 30 / 870 Output Total 0 / 0 0 / 0 0 / 0 Balance 840 / 870 30 / 870 0 / 870 Intake: Intake, Oral Amount 840 / 870 30 / 870 Output: Output, Urine Amount 0 / 0 0 / 0 0 / 0 Other: Number of Unmeasured Voids 1 1 1 Number of Bowel Movements 1 Weight 120 lb 3.2 oz Patient Weight 11/10/24 11:59 Weight 120 lb 3.2 oz Laboratory Results - last 24 hr 11/09/24 09:02: WBC 8.4, RBC 4.66 D, Hgb 11.7 L, Hct 37.3, MCV 80.0 L, MCH 25.1 L, MCHC 31.4 L, RDW 18.7 H, Plt Count 259, MPV 8.8, Neut % (Auto) 79.4, Lymph % (Auto) 9.2 L, [place] % (Auto) 8.5, Eos % (Auto) 2.0, Baso % (Auto) 0.7, Neut # (Auto) 6.7, Lymph # (Auto) 0.8, [place] # (Auto) 0.7, Eos # (Auto) 0.2, Baso # (Auto) 0.1, Sodium 137, Potassium 3.6, Chloride 101, Carbon Dioxide 29, Anion Gap 10.6, BUN 17, Creatinine 1.10 H, Estimated Creat Clear 33, Estimated GFR 47 L, Est GFR ( Amer) 57 L, Glucose 164 H D, Calcium 8.3 L, Total Bilirubin 1.5 H, AST 29, ALT 17 D, Alkaline Phosphatase 83, NT-Pro-B Natriuret Pep 7060 H , Total Protein 7.0, Albumin 3.6, Globulin 3.4 H, Albumin/Globulin Ratio 1.1 I & O for Labs for Last 24 Hours: Intake & Output 11/07/24 11/08/24 11/09/24 11/10/24 11:59 11:59 11:59 11:59 Intake Total 211.667 / 128.774 5779.75 / 1913.75 870 / 870 Output Total 4500 / 4500 1025 / 1025 0 / 0 Balance -4288.333 / -4288.333 888.75 / 888.75 870 / 870 Weight 140 lb 120 lb 12.8 oz 120 lb 6.4 oz 120 lb 3.2 oz Microbiology Reports for the Last 24 Hours: Microbiology 11/08/24 13:25 Nose MRSA Culture - Final 11/07/24 14:00 Anus CRE Surveillance Culture - Final Negative Constitutional: Present no acute distress Respiratory: Present normal respiratory effort Cardiac: Present Reg Rate and Rhythm Extremities: Present normal inspection and full ROM Skin: Present intact; Absent erythema Neuro: Present moves all extremities Assessment and Plan *Assessment and plan (1) Flash pulmonary edema: Status: Acute Category: Medical Code(s): J81.0 - Acute pulmonary edema (2) Acute hypoxic respiratory failure: Status: Acute Category: Medical Code(s): J96.01 - Acute respiratory failure with hypoxia (3) Acute hypercapnic respiratory failure: Status: Acute Category: Medical Code(s): J96.02 - Acute respiratory failure with hypercapnia (4) Elevated troponin I level: Status: Acute Category: Medical Code(s): R79.89 - Other specified abnormal findings of blood chemistry (5) Anemia: Status: Acute Qualifiers: Anemia type: iron deficiency Iron deficiency anemia type: unspecified iron deficiency Qualified Code(s): D50.9 - Iron deficiency anemia, unspecified Category: Medical Code(s): D64.9 - Anemia, unspecified (6) Generalized weakness: Status: Acute Category: Medical Code(s): R53.1 - Weakness (7) Chronic HFrEF (heart failure with reduced ejection fraction): Status: Acute Category: Medical Code(s): I50.22 - Chronic systolic (congestive) heart failure (8) Vitamin B12 deficiency: Status: Acute Category: Medical Code(s): E53.8 - Deficiency of other specified B group vitamins (9) Hypokalemia: Status: Resolved Category: Medical Code(s): E87.6 - Hypokalemia (10) Iron deficiency anemia: Status: Acute Category: Medical Code(s): D50.9 - Iron deficiency anemia, unspecified Plan GI has scheduled an EGD this am due to anemia. B12 has been given. Will discuss something for restless legs and to help her sleep with Dr. Carbajal. Will schedule Docusate bid. Dr. Linda entry - Saw patient in Dr. Carbajal's abscence. She feels better after having the EGD. No new complaints, now, plan for left heart cath tomorrow.
[2024-11-10] MEDS: POTASSIUM CHLORIDE 10MEQ CAPSULE.ER 10 MEQ PO ×2 (10:01→20:28)
[2024-11-10] MEDS: SACUBITRIL/VALSARTAN 24-26MG TABLET 2 EACH PO ×2 (10:02→20:25)
[2024-11-10] MEDS: SPIRONOLACTONE 25MG TABLET 25 MG PO (10:02)
[2024-11-10] MEDS: CLOPIDOGREL 75MG TAB 75 MG PO (10:02)
[2024-11-10] MEDS: ROPINIROLE 1MG TABLET 2 MG PO ×3 (10:03→20:26)
[2024-11-10] MEDS: ASPIRIN 81MG CHEWABLE TABLET 81 MG PO (10:03)
--- NOTE | 2024-11-10 10:38 | EXP.CARD.PN ---
Subjective Subjective Date: 11/10/24 Time: 10:38 Principal diagnosis: CHF, anemia Interval history: 84 yo WF in bed in NAD. Complains of constipation, usually takes senokot daily Frustrated by not being able to sleep Plan for EGD today Exam Data for Last 24 hours Vital signs and Labs for Last 24 Hours: Temp Pulse Resp BP Pulse Ox O2 Del Method O2 Flow Rate 97.7 F 82 16 128/78 100 Room Air 96 11/10/24 08:00 11/10/24 08:00 11/10/24 08:00 11/10/24 08:00 11/10/24 08:00 11/10/24 08:00 11/09/24 07:00 FiO2 40 11/08/24 05:00 Laboratory Results - last 24 hr 11/09/24 09:02: NT-Pro-B Natriuret Pep 7060 H I & O for Last 24 hours: Intake & Output 11/07/24 11/08/24 11/09/24 11/10/24 11:59 11:59 11:59 11:59 Intake Total 211.667 / 983.457 9982.75 / 1913.75 870 / 870 Output Total 4500 / 4500 1025 / 1025 0 / 0 Balance -4288.333 / -4288.333 888.75 / 888.75 870 / 870 Weight 140 lb 120 lb 12.8 oz 120 lb 6.4 oz 120 lb 3.2 oz Microbiology Reports for the Last 24 Hours: Microbiology 11/08/24 13:25 Nose MRSA Culture - Final 11/07/24 14:00 Anus CRE Surveillance Culture - Final Negative Constitutional Constitutional: no acute distress *Routine Respiratory Exam Respiratory: Present CTA bilaterally *Routine Cardiovascular Exam Cardiovascular: Present RRR and murmur; Absent gallop or rubs *Routine Extremities Exam Extremities: Absent edema Progress Note: A&P Assessment and plan (1) Flash pulmonary edema: Status: Acute (2) Acute hypoxic respiratory failure: Status: Acute (3) Acute hypercapnic respiratory failure: Status: Acute (4) Acute non-ST elevation myocardial infarction (NSTEMI): Status: Resolved (5) Acute on chronic heart failure with reduced ejection fraction (HFrEF, <= 40%): Status: Acute (6) Generalized weakness: Status: Acute (7) Vitamin B12 deficiency: Status: Acute (8) Hypokalemia: Status: Resolved (9) Iron deficiency anemia: Status: Acute (10) Pneumonia: Status: Acute (11) CKD (chronic kidney disease) stage 3, GFR 30-59 ml/min: Status: Inactive (12) Coronary artery disease: Status: Inactive (13) HTN (hypertension): Status: Acute Assessment and Plan Assessment and Plan for All Diagnoses:: 1. Flash pulmonary edema/acute on chronic HFrEF -Patient has diuresed 4 L initially with improvement in symptoms -Currently on Coreg, Entresto, spironolactone with PRN lasix - BUN 17, Cr 1.1 -Echo confirms chronic EF of 25% 2. Acute hypoxic/hypercapnic respiratory failure with Pneumonia -On supplemental oxygen -Pulmonary following -IV levofloxacine 3. Elevated troponin, likely secondary to demand ischemia the patient has previous coronary artery disease. -Recommend proceeding with cardiac cath to assess history of LAD stenting in 01/2023 with elevated troponins this admit -On ASA and plavix -on statin with LDL 36 in 04/2024 4. Recurrent anemia with microcytic indices -Received one unit PRBC's with Hgb up to 11.7 -workup in progress with consult to GI 5. Hypokalemia, K of 2.8, resolved now with K of 3.6 -Replacement ongoing 6. Restless legs -Ropinirole ordered GI consulted with plans for EGD today. Plan cardiac cath on Thursday pending results of EGD. No IV diuretics today
--- NOTE | 2024-11-10 11:59 | EXP.ANES.CKL ---
[facility] Disclaimer: The information contained in this section may have been updated after the patient was seen, as this information can be updated by other users. Medical History (Updated 11/09/24 @ 11:50 by Belle Jimenez APRN) Vitamin B12 deficiency Pneumonia Awa UTI Adnexal mass TIA (transient ischemic attack) Abnormal CT scan of head Lesion of ovary Urinary tract infectious disease Adnexal cyst Cystitis Chronic pyelonephritis Acute pyelonephritis YAMEL (acute kidney injury) Acute nontraumatic kidney injury Pessary maintenance Uterine prolapse Prolapse of anterior vaginal wall Pyelonephritis GI bleed Chronic constipation CKD (chronic kidney disease) stage 3, GFR 30-59 ml/min Coronary artery disease Ischemic cardiomyopathy ASCVD (arteriosclerotic cardiovascular disease) Systolic heart failure Cardiomyopathy CHF (congestive heart failure) HLD (hyperlipidemia) Hypertension Left bundle branch block (LBBB) determined by electrocardiography NSTEMI (non-ST elevated myocardial infarction) Surgical History History of cardiac cath S/P partial hysterectomy Family History No significant family history Social History Smoking Status: Never smoker alcohol intake: never substance use type: denies use current occupational status: retired Travel in the last 8 weeks?: None [facility] Anesthesia Checklist Patient Identification Patient Identification: Arm Band Structural Data Admitted From: Home Planned Operative Procedure/s: EGD Consent for Planned Operative Procedure(s) Verified: Yes Verified Documents: Surgical Consent and History and Physical NPO Status Verified Time NPO: 00:00 Additional verifications Anesthesia Reactions: No Airway Assessment Mallampati Score:: Class II C-Spine Mobility Assessed: Yes TMJ Mobility Assessed: Yes Dentition: Good Dentition Neurological Assessment Level of Consciousness: Awake, Alert and Appropriate Anesthesia Plan Anesthesia Risk discussed: Yes Anesthesia Plan: Verified ASA Class: IV Anesthesia Type: MAC
--- NOTE | 2024-11-10 12:08 | HMH.PROCNOTE ---
[facility] Procedure Note Date: 11/10/24 Time: 12:20 Procedure Note:: Upper Endoscopy Procedure Report: Esophagogastroduodenoscopy with cold biopsies and TTS balloon dilation Endoscopost: Jonnie Cruz II, MD Referring Physician: Ricardo Carbajal MD Date of Procedure: November 10, 2024 Equipment: Olympus GIF-1100 standard upper endoscope Sedation: MAC sedation Indications: Mrs. Najera is an 84-year-old female who presented with dyspnea and exacerbation of cardiomyopathy and CHF. She was found to have anemia and her hemoglobin upon her arrival was 8.1 and subsequently dropped to 6.2. She received 2 units of PRBCs. She was microcytic/hypochromic at her iron level was 32 with iron saturation of 9.3%. She was admitted earlier in the year in April and found to have anemia and received 2 units of PRBCs. The patient's last colonoscopy was 2 years ago at [facility]. We do not have these results. She has never had an upper endoscopy. She has had some nausea and mild dysphagia. She also reports chronic constipation. Procedure: Prior to the procedure, a history and physical exam was performed, and patient's medications and allergies were reviewed. The risks, benefits and alternatives of the sedation and procedure were discussed with the patient. All questions were answered and informed consent was obtained. The patient was brought to the procedure room. Patient identification and proposed procedure were verified by the physician and the nurse. The patient was placed in a left lateral decubitus position and the scope was passed under direct vision. Throughout the procedure, the patient's blood pressure, pulse, and oxygen saturations were monitored continuously. The upper GI endoscopy was accomplished without difficulty. The patient tolerated the procedure well. Findings: The scope was passed directly into the upper esophagus and advanced to the third portion of the duodenum. The post bulbar duodenum and duodenal bulb were normal but there were few superficial erosions in the first portion of the duodenum. The scope was withdrawn through a normal duodenal bulb and pylorus into the stomach. There was a chalky bluish-green fluid/exudate on the mucosa that was something that she ingested so this had to be washed thoroughly to see the mucosa. There was clearly erosive gastropathy of the antrum and body of the stomach with a few scattered AVMs. There was some old heme identified. After washing this, there was no active bleeding. Upon retroflexion there was a small 2 cm hiatal hernia. Cold biopsies were taken from the antrum. The scope was then withdrawn into the esophagus. There was no evidence of reflux esophagitis or Rutledge's. There was a distal fibrous ring/Schatzki's ring. The diameter of this was 15 to 16 mm and this was dilated up to 20 mm with a TTS hydrostatic balloon. The remainder of the esophageal mucosa was normal. Impression: 1. Erosive gastropathy with a few scattered gastric AVM/angiodysplasias 2. Erosive duodenitis 3. Schatzki's ring dilated to 20 mm 4. Small 2 cm hiatal hernia Plan: I will follow-up the biopsies. I would recommend low-dose PPI therapy. The patient's hemoglobin and hematocrit are stable. I would recommend Venofer and then daily oral iron therapy.
[2024-11-10] MEDS: IRON SUCROSE COMPLEX 200 MG in 0.9 % SODIUM CHLORIDE 100 ML 220 MG IV (15:20)
[2024-11-10] MEDS: SODIUM CHLORIDE 3% 15ML NEB 3 ML IH (15:35)
[2024-11-10] MEDS: ATORVASTATIN 40MG TABLET 40 MG PO (20:26)
[2024-11-10 23:09] LABS: Occult Blood,Stool Negative (Negative)
[2024-11-11] VITALS (14 sets, daily range): BP systolic 96–149; BP diastolic 42–81; PULSE 70–81; RESP 16–20; TEMP 36.3–37.2; O2SAT 90–100; BMI 18.8
[2024-11-11 05:57] LABS: Hematocrit 34.7 % (37.0-47.0); Hemoglobin 10.8 g/dL (12.2-16.2); Immature Granulocytes % 0.3 %; Mean Corpuscular HGB Conc 31.1 g/dL (31.8-35.4); Mean Corpuscular Hemoglobin 25.2 pg (27.0-31.2); Mean Corpuscular Volume 80.9 fl (81-99); Nucleated Red Blood Cells % 0 %; Platelet Count 257 K/mm3 (142-424); Red Blood Count 4.29 M/mm3 (4.20-5.40); Red Cell Distribution Width-SD 58.4 fL; White Blood Count 8.6 K/mm3 (4.8-10.8)
[2024-11-11 06:00] LABS: Anion Gap 12.0 mEq/L (5-15); Blood Urea Nitrogen 20 mg/dl (7-17); Calcium 8.5 mg/dl (8.4-10.2); Carbon Dioxide 22 mmol/L (22.0-30.0); Chloride 106 mmol/L (98-107); Creatinine Clearance Estimated 36 mL/min (50-200); Creatinine,Serum 1.00 mg/dl (0.52-1.04); Estimated Glomerular Filt Rate 53 ml/min (>60); GFR (African American) 64 ML/MIN (>60); Glucose 100 mg/dl (74-100); Potassium 4.0 mmoL/L (3.5-5.1); Sodium 136 mmol/L (136-145)
--- NOTE | 2024-11-11 08:25 | P.PN_ITS ---
Subjective *Date: 11/11/24 *Time: 08:33 Interval history: Patient is feeling better this am. She denies any pain. She was still unable to sleep due to restless legs. Medical Exam Vital signs and Labs for Last 24 Hours: Vital Signs Temp Pulse Pulse Resp BP Pulse Ox O2 Del Method 11/11/24 06:26 Room Air 11/11/24 05:00 Room Air 11/11/24 04:00 80 11/11/24 03:00 Room Air 11/11/24 01:00 Room Air 11/11/24 00:00 70 11/11/24 00:00 97.6 F 75 16 122/59 L 100 Nasal Cannula 11/10/24 23:00 Nasal Cannula 11/10/24 21:00 Nasal Cannula 11/10/24 20:00 80 11/10/24 20:00 97.6 F 74 16 125/63 100 Nasal Cannula 11/10/24 20:00 Nasal Cannula 11/10/24 18:48 Nasal Cannula 11/10/24 18:00 72 101/52 L 98 Room Air 11/10/24 17:00 70 109/59 L 98 11/10/24 16:00 70 126/70 99 11/10/24 16:00 98.2 F 70 18 126/70 96 Room Air 11/10/24 16:00 Room Air 11/10/24 15:36 90 18 11/10/24 15:30 74 122/69 96 11/10/24 15:00 79 111/64 100 11/10/24 15:00 Room Air 11/10/24 14:30 74 113/63 100 11/10/24 14:00 76 112/64 100 11/10/24 13:45 71 133/69 99 11/10/24 13:30 70 136/75 98 Room Air 11/10/24 13:00 Room Air 11/10/24 12:30 74 114/41 L 96 Room Air 11/10/24 12:20 97.5 F L 72 16 98/45 L 97 Room Air 11/10/24 11:00 Room Air 11/10/24 09:00 Room Air O2 Flow Rate 11/11/24 06:26 11/11/24 05:00 11/11/24 04:00 11/11/24 03:00 11/11/24 01:00 11/11/24 00:00 11/11/24 00:00 11/10/24 23:00 2 11/10/24 21:00 2 11/10/24 20:00 11/10/24 20:00 2 11/10/24 20:00 2 11/10/24 18:48 2 11/10/24 18:00 11/10/24 17:00 11/10/24 16:00 11/10/24 16:00 11/10/24 16:00 11/10/24 15:36 11/10/24 15:30 11/10/24 15:00 11/10/24 15:00 11/10/24 14:30 11/10/24 14:00 11/10/24 13:45 11/10/24 13:30 11/10/24 13:00 11/10/24 12:30 11/10/24 12:20 11/10/24 11:00 11/10/24 09:00 Intake and Output 11/10/24 11/11/24 11/11/24 19:59 03:59 11:59 Intake Total 260 / 620 360 / 620 Output Total 0 / 0 0 / 0 0 / 0 Balance 260 / 620 360 / 620 0 / 620 Intake: Intake, Oral Amount 360 / 360 Intake, Total IV Amount 260 / 260 Iron Sucrose Complex 200 mg In 110 / 110 0.9 % Sodium Chloride 100 ml @ 220 mls/hr IV ONCE ONE Rx#: [id number] Levofloxacin/D5w 750 mg/150 ml 150 / 150 750 mg In 150 ml @ 100 mls/hr IV Q48H [facility] Rx#:[id number] Output: Output, Urine Amount 0 / 0 0 / 0 0 / 0 Other: Number of Unmeasured Voids 1 1 1 Weight 120 lb 3.2 oz 120 lb 3.136 oz Patient Weight 11/11/24 11:59 Weight 120 lb 3.136 oz Laboratory Results - last 24 hr 11/10/24 22:57: Stool Occult Blood Negative 11/11/24 05:16: WBC 8.6, RBC 4.29, Hgb 10.8 L, Hct 34.7 L, MCV 80.9 L, MCH 25.2 L, MCHC 31.1 L, RDW 20.0 H, Plt Count 257, MPV 9.6, Neut % (Auto) 69.7, Lymph % (Auto) 17.6, [place] % (Auto) 9.5 H, Eos % (Auto) 2.2, Baso % (Auto) 0.7, Neut # (Auto) 6.0, Lymph # (Auto) 1.5, [place] # (Auto) 0.8, Eos # (Auto) 0.2, Baso # (Auto) 0.1, Sodium 136, Potassium 4.0, Chloride 106, Carbon Dioxide 22, Anion Gap 12.0, BUN 20 H, Creatinine 1.00, Estimated Creat Clear 36, Estimated GFR 53 L, Est GFR ( Amer) 64, Glucose 100, Calcium 8.5 I & O for Labs for Last 24 Hours: Intake & Output 11/08/24 11/09/24 11/10/24 11/11/24 11:59 11:59 11:59 11:59 Intake Total 211.667 / 411.533 5772.75 / 1913.75 870 / 870 620 / 620 Output Total 4500 / 4500 1025 / 1025 0 / 0 0 / 0 Balance -4288.333 / -4288.333 888.75 / 888.75 870 / 870 620 / 620 Weight 120 lb 12.8 oz 120 lb 6.4 oz 120 lb 3.2 oz 120 lb 3.136 oz Constitutional: Present no acute distress Respiratory: Present normal respiratory effort Cardiac: Present Reg Rate and Rhythm Extremities: Present normal inspection and full ROM Skin: Present intact; Absent erythema Neuro: Present moves all extremities Assessment and Plan *Assessment and plan (1) Flash pulmonary edema: Status: Acute Category: Medical Code(s): J81.0 - Acute pulmonary edema (2) Acute hypoxic respiratory failure: Status: Acute Category: Medical Code(s): J96.01 - Acute respiratory failure with hypoxia (3) Acute hypercapnic respiratory failure: Status: Acute Category: Medical Code(s): J96.02 - Acute respiratory failure with hypercapnia (4) Elevated troponin I level: Status: Acute Category: Medical Code(s): R79.89 - Other specified abnormal findings of blood chemistry (5) Anemia: Status: Acute Qualifiers: Anemia type: iron deficiency Iron deficiency anemia type: unspecified iron deficiency Qualified Code(s): D50.9 - Iron deficiency anemia, unspecified Category: Medical Code(s): D64.9 - Anemia, unspecified (6) Generalized weakness: Status: Acute Category: Medical Code(s): R53.1 - Weakness (7) Chronic HFrEF (heart failure with reduced ejection fraction): Status: Acute Category: Medical Code(s): I50.22 - Chronic systolic (congestive) heart failure (8) Vitamin B12 deficiency: Status: Acute Category: Medical Code(s): E53.8 - Deficiency of other specified B group vitamins (9) Hypokalemia: Status: Resolved Category: Medical Code(s): E87.6 - Hypokalemia (10) Iron deficiency anemia: Status: Acute Category: Medical Code(s): D50.9 - Iron deficiency anemia, unspecified Plan Patient had Esophagogastroduodenoscopy with cold biopsies and TTS balloon dilation yesterday. She is scheduled for a heart cath today. Dr. Linda entry - Saw patient, agree with above note. Await left heart cath results. Patient is anxious to go home.
[2024-11-11] MEDS: ROPINIROLE 1MG TABLET 2 MG PO ×2 (08:28→13:36)
[2024-11-11] MEDS: ASPIRIN 81MG CHEWABLE TABLET 81 MG PO (08:28)
[2024-11-11] MEDS: POTASSIUM CHLORIDE 10MEQ CAPSULE.ER 10 MEQ PO (08:28)
[2024-11-11] MEDS: CLOPIDOGREL 75MG TAB 75 MG PO (08:28)
[2024-11-11] MEDS: SPIRONOLACTONE 25MG TABLET 25 MG PO (08:28)
[2024-11-11] MEDS: SACUBITRIL/VALSARTAN 24-26MG TABLET 2 EACH PO (08:29)
[2024-11-11] MEDS: SENNOSIDES 8.6MG/DOCUSATE 50MG TABLET 1 TAB PO (08:33)
--- NOTE | 2024-11-11 08:33 | IR_ITS ---
APPROVED REPORT Patient Location: Inpatient PROCEDURES Left heart catheterization Left ventriculogram Selective coronary angiogram INDICATION Acute non-ST elevation myocardial infarction, Coronary artery disease Informed consent was obtained prior to the procedure. COMPLICATIONS NONE Estimated Blood Loss: LESS THAN 10 ML TECHNIQUE One percent lidocaine used to anesthetize the right anterior aspect of the wrist. The right radial artery was accessed via the Seldinger technique. A 6 Irish sheath was placed in the right radial artery. 2.5 mg of Verapamil, 800 mcg of nitroglycerin, 1mg Lidocaine and 5000 U Heparin were given through the arterial sheath. The JL3 catheter was also used to perform left heart catheterization, left ventriculogram and selective coronary angiogram. At the end of the procedure the sheath was removed good hemostasis was achieved using Traclet band, patient was transferred to the postop holding area in stable condition. ANGIOGRAPHIC RESULTS The left main artery Normal The left anterior descending artery Has a stent in the proximal side which is widely patent free of in-stent stent restenosis with excellent proximal distal transitioning. There is a small to medium sized first diagonal artery which is jailed and has an 80% ostial stenosis The circumflex artery Large dominant normal The right coronary artery Nondominant normal The DIAZ ventriculogram reveals Mid anterior apical hypokinesis estimate ejection fraction 40% The left ventricular end-diastolic pressure 20 mmHg IMPRESSION Patent proximal LAD stent as described above Angiographically jailed first diagonal artery which is best managed medically and not clinically appropriate at this time for revascularization Reduced ejection fraction with regional wall motion abnormality Elevated LVEDP PLAN 1. Official echocardiogram to determine if ejection fraction is low enough to warrant LifeVest 2. Medical management for coronary artery disease 3. GDMT for LV dysfunction Electronically signed by : Buzz Hemphill MD 11/11/2024 14:42:44
--- NOTE | 2024-11-11 11:32 | P.PN_ITS ---
Subjective Subjective Date: 11/11/24 Time: 11:35 Principal diagnosis: CHF, anemia Interval history: 84-year-old white female in bed in no acute distress Anxious to have a cardiac catheterization today and hopefully go home No complaints overnight Exam Data for Last 24 hours Vital signs and Labs for Last 24 Hours: Temp Pulse Resp BP Pulse Ox O2 Del Method O2 Flow Rate 97.4 F L 79 17 136/72 100 Room Air 2 11/11/24 08:00 11/11/24 08:00 11/11/24 08:00 11/11/24 08:00 11/11/24 08:00 11/11/24 09:10 11/10/24 23:00 FiO2 40 11/08/24 05:00 Laboratory Results - last 24 hr 11/10/24 22:57: Stool Occult Blood Negative 11/11/24 05:16: WBC 8.6, RBC 4.29, Hgb 10.8 L, Hct 34.7 L, MCV 80.9 L, MCH 25.2 L, MCHC 31.1 L, RDW 20.0 H, Plt Count 257, MPV 9.6, Neut % (Auto) 69.7, Lymph % (Auto) 17.6, [place] % (Auto) 9.5 H, Eos % (Auto) 2.2, Baso % (Auto) 0.7, Neut # (Auto) 6.0, Lymph # (Auto) 1.5, [place] # (Auto) 0.8, Eos # (Auto) 0.2, Baso # (Auto) 0.1, Sodium 136, Potassium 4.0, Chloride 106, Carbon Dioxide 22, Anion Gap 12.0, BUN 20 H, Creatinine 1.00, Estimated Creat Clear 36, Estimated GFR 53 L, Est GFR ( Amer) 64, Glucose 100, Calcium 8.5 I & O for Last 24 hours: Intake & Output 11/08/24 11/09/24 11/10/24 11/11/24 11:59 11:59 11:59 11:59 Intake Total 211.667 / 490.504 0660.75 / 1913.75 870 / 870 620 / 620 Output Total 4500 / 4500 1025 / 1025 0 / 0 0 / 0 Balance -4288.333 / -4288.333 888.75 / 888.75 870 / 870 620 / 620 Weight 120 lb 12.8 oz 120 lb 6.4 oz 120 lb 3.2 oz 120 lb 3.136 oz Constitutional Constitutional: no acute distress *Routine Respiratory Exam Respiratory: Present CTA bilaterally *Routine Cardiovascular Exam Cardiovascular: Present RRR Progress Note: A&P Assessment and plan (1) Flash pulmonary edema: Status: Acute (2) Acute hypoxic respiratory failure: Status: Acute (3) Acute hypercapnic respiratory failure: Status: Acute (4) Acute non-ST elevation myocardial infarction (NSTEMI): Status: Resolved (5) Generalized weakness: Status: Acute (6) Vitamin B12 deficiency: Status: Acute (7) Hypokalemia: Status: Resolved (8) Iron deficiency anemia: Status: Acute (9) Acute on chronic heart failure with reduced ejection fraction (HFrEF, <= 40%): Status: Acute (10) Pneumonia: Status: Acute (11) CKD (chronic kidney disease) stage 3, GFR 30-59 ml/min: Status: Inactive (12) Coronary artery disease: Status: Inactive (13) HTN (hypertension): Status: Acute Assessment and Plan Assessment and Plan for All Diagnoses:: 1. Flash pulmonary edema/acute on chronic HFrEF -Patient has diuresed 4 L initially with improvement in symptoms -Currently on Coreg, Entresto, spironolactone with PRN lasix - BUN 17, Cr 1.1 -Echo confirms chronic EF of 25% 2. Acute hypoxic/hypercapnic respiratory failure with Pneumonia -On supplemental oxygen -Pulmonary following -IV levofloxacine 3. Elevated troponin, likely secondary to demand ischemia the patient has previous coronary artery disease. -Recommend proceeding with cardiac cath to assess history of LAD stenting in 01/2023 with elevated troponins this admit -On ASA and plavix -on statin with LDL 36 in 04/2024 4. Recurrent anemia with microcytic indices -Received one unit PRBC's with Hgb up to 11.7 -EGD without active bleeding. Erosive gastropathy, gastric AVM/angiodysplasias and duodenitis noted. 5. Hypokalemia -Replacement ongoing 6. Restless legs -Ropinirole ordered Cardiac cath today Anticipate discharge home later this evening Home medication recommendations: Aspirin 81 mg daily Carvedilol 3.125 mg twice daily Plavix 75 mg daily Atorvastatin 40 mg daily Spironolactone 25 mg daily Entresto 24/26 mg 2 tablets twice daily Lasix 40 mg daily Potassium chloride 20 mill equivalents daily Stop amlodipine Follow-up in our office in 1 week.
[2024-11-11] MEDS: VERAPAMIL 2.5MG/ML 2ML VIAL 2.5 MG IV (12:31)
[2024-11-11] MEDS: HEPARIN 1,000 UNITS/ML 10ML VIAL (CATH LAB) 5000 UNIT IV (12:31)
[2024-11-11] MEDS: HEPARIN 1,000 UNITS/500ML NS (CATH LAB) 3000 UNIT IV (12:31)
[2024-11-11] MEDS: 0.9 % SODIUM CHLORIDE 500 ML 25 ML IV (12:31)
[2024-11-11] MEDS: NITROGLYCERIN 800MCG/8ML SYR (CATH LAB) 800 MCG IA (12:31)
[2024-11-11] MEDS: LIDOCAINE 1% 10ML MDV 10 ML IJ (12:31)
[2024-11-11] MEDS: FENTANYL 100MCG/2ML VIAL 50 MCG IV (12:45)
[2024-11-11] MEDS: MIDAZOLAM HCL 1MG/ML 5ML VIAL 1 MG IV (12:45)
[2024-11-11] MEDS: IOPAMIDOL-370 (76%);100ML BOTTLE 40 ML IV (13:27)
[2024-11-11] MEDS: TRAMADOL 50MG TABLET 50 MG PO (13:36)
--- NOTE | 2024-11-11 20:06 | PC.NURSE ---
pt left floor to go home at this time
--- NOTE | 2024-11-14 10:40 | SW/DCPLANNER ---
Spoke with patient's sitter on the phone. Patient's sitter stated that she is doing okay and just in pain and moving slow. patient's sitter stated that she will call today to schedule her follow up appointments. Patient's sitter stated that she has no concerns or questions at this time. Cathie Guerrero
--- NOTE | 2024-11-14 23:19 | EXP.DC.SUM ---
General Admission date:: 11/07/24 HPI HPI HPI: Ms. Najera is an 84-year-old female with with a history of hypertension, hyperlipidemia, ASCVD, NSTEMI in 2022, and ischemic cardiomyopathy with an ejection fraction of 25% who presented to [facility] emergency room for evaluation after experiencing sudden onset of extreme shortness of breath. Patient states she had had no previous problems this morning until this occurred. She also described a good day yesterday. She denies having any associated chest pain, palpitations or other respiratory symptoms. EMS found her in a tripod position and gasping for air on their arrival. O2 sat was 76%. She was placed on CPAP enroute to the hospital. With her evaluation in the emergency room she was found to be hypoxic in hypercapnic respiratory failure with acidosis. The patient dramatically improved from a mental status point with oxygenation. She remained somnolent and she was put on BiPAP. CTA of the chest revealed multifocal airspace opacities in the right lung consistent with pneumonia and no pulmonary embolism. Moderate bilateral pleural effusions which were noted to be increased since the prior exam of 05/18/2024. Chest x-ray revealed mild CHF.Lactate did improve to 1.1. Troponin I increased to 0.04 and then 0.06. ABGs also improved with venous blood gas showing a pH of 7.46 and a pO2 of 51.4. With this exam patient states she feels much better. They have removed her BiPAP and she is on O2 at 3 L/min. She denies any chest pain and shortness of breath. She states she never had a fever or cold symptoms at home. She had been eating and drinking well. She was been able to ambulate at home without difficulty. She does have a sitter 15/09. per H&P This is a pleasant 84-year-old female who was initially admitted for above symptoms. Patient was found to be anemic upon initial arrival with a hemoglobin of 8.1. This subsequently dropped to 6.9. She is status post 2 units packed red cells and hemoglobin is up to 11.7. Anemia was microcytic and hypochromic with an iron level of 32, percent sat low at 9.3%. She also happens to have a B12 low at 184. The patient denies any melena or hematochezia that she has seen at home. She was admitted back in April and found to be anemic and received 2 units packed red cells at that time as well. Patient's last colonoscopy was 2 years ago at [facility] and she denies any polyps. She denies any family history of colon cancer or other GI cancers, IBD or celiac disease. She has never had an EGD. She does report some nausea in the past couple of weeks she denies alcohol or NSAID use. Patient feels significantly better today. She is able to hold on a full conversation without SOA. She denies any current shortness of breath, chest pain or other concerns. Hospital Course Hospital Course Hospital Course: The patient was admitted and some of her home medications were reordered. Cardiology and pulmonology consults were made and spironolactone was added. Diuresis was continued. She did complain of restless leg syndrome and her Requip was increased. Her hemoglobin declined on 11/08/2024 from 8.1-6.9 and her potassium decreased from 3.6-2.8. 2 units of packed red blood cells were ordered and she was started on potassium. By 11/08/2024, she was breathing well with good saturations. Her admission weight was 140 pounds and she was down to 120 pounds. Her Requip was increased due to restless leg syndrome, and her H&H improved with transfusion. She was seen by the syrup mixer who wanted to initiate Levaquin and follow-up with a respiratory panel and a nasal MRSA PCR. She was seen by cardiology due to her congestive heart failure and shortness of breath. She had diuresed well and they ordered an echo. They also repeated a Lasix dose after her blood transfusion. They recommended stopping Norvasc and increasing her Entresto and they also recommended GI evaluation with a EGD prior to cathing the patient. They wanted to do the cath due to recurrent flash pulmonary edema. The patient's echo showed an EF of 25%. The patient was also B12 deficient and IM and p.o. B12 were ordered. She was seen by GI and they planned an EGD. Dr. Cruz did the EGD with cold biopsies and TTS balloon dilation. The patient's nasal MRSA PCR was positive and she was continued on antibiotics. She was then scheduled for a heart cath which she had on 11/11/2024. No stenting was necessary and she required medical management. She was stable to be discharged home and will follow-up with cardiology Exam Data for Last 24 hours Vital signs and Labs for Last 24 Hours: Temp Pulse Resp BP Pulse Ox O2 Del Method O2 Flow Rate 97.7 F 77 16 96/42 L 97 Room Air 2 11/11/24 17:00 11/11/24 19:00 11/11/24 19:00 11/11/24 19:00 11/11/24 19:00 11/11/24 19:00 11/11/24 13:30 FiO2 40 11/08/24 05:00 I & O for Last 24 hours: Intake & Output 11/12/24 11/13/24 11/14/24 11/15/24 11:59 11:59 11:59 11:59 Intake Total 600 / 600 Output Total 0 / 0 Balance 600 / 600 DS: Diagnosis Discharge Diagnosis (1) Flash pulmonary edema: Status: Acute Code(s): J81.0 - Acute pulmonary edema (2) Acute hypoxic respiratory failure: Status: Acute Code(s): J96.01 - Acute respiratory failure with hypoxia (3) Acute hypercapnic respiratory failure: Status: Acute Code(s): J96.02 - Acute respiratory failure with hypercapnia (4) Acute non-ST elevation myocardial infarction (NSTEMI): Status: Resolved Code(s): I21.4 - Non-ST elevation (NSTEMI) myocardial infarction (5) Generalized weakness: Status: Acute Code(s): R53.1 - Weakness (6) Vitamin B12 deficiency: Status: Acute Code(s): E53.8 - Deficiency of other specified B group vitamins (7) Hypokalemia: Status: Resolved Code(s): E87.6 - Hypokalemia (8) Iron deficiency anemia: Status: Acute Code(s): D50.9 - Iron deficiency anemia, unspecified (9) Acute on chronic heart failure with reduced ejection fraction (HFrEF, <= 40%): Status: Acute Code(s): I50.23 - Acute on chronic systolic (congestive) heart failure (10) Pneumonia: Status: Acute Code(s): J18.9 - Pneumonia, unspecified organism (11) CKD (chronic kidney disease) stage 3, GFR 30-59 ml/min: Status: Inactive Code(s): N18.30 - Chronic kidney disease, stage 3 unspecified (12) Coronary artery disease: Status: Inactive Code(s): I25.10 - Atherosclerotic heart disease of [place] coronary artery without angina pectoris Qualifiers: Coronary Disease-Associated Artery/Lesion type: [place] artery [place] vs. transplanted heart: [place] heart Associated angina: without angina Qualified Code(s): I25.10 - Atherosclerotic heart disease of [place] coronary artery without angina pectoris (13) HTN (hypertension): Status: Acute Code(s): I10 - Essential (primary) hypertension Qualifiers: Hypertension type: unspecified Qualified Code(s): I10 - Essential (primary) hypertension Meds Home Medications and Allergies Home Medications ?Medication ?Instructions ?Recorded ?Confirmed ?Type aspirin 81 mg chewable tablet 81 mg PO DAILY 03/11/23 11/07/24 History atorvastatin 40 mg tablet 40 mg PO HS 03/11/23 11/07/24 History carvedilol 3.125 mg tablet 3.125 mg PO BID 03/11/23 11/07/24 History clonazepam 1 mg tablet 1 mg PO HSP PRN Insomnia 12/16/23 11/07/24 History clopidogrel 75 mg tablet 75 mg PO DAILY 05/26/24 11/07/24 History amlodipine 5 mg tablet 5 mg PO DAILY 11/07/24 11/07/24 History ondansetron 4 mg disintegrating 4 mg PO Q8HP PRN Nausea And 11/07/24 11/07/24 History tablet Vomiting ropinirole 3 mg tablet 3 mg PO HS 11/07/24 11/07/24 History sacubitril 24 mg-valsartan 26 mg 1 tab PO BID 11/07/24 11/07/24 History tablet (Entresto) tramadol 50 mg tablet 50 mg PO Q6HP PRN Moderate Pain 11/07/24 11/07/24 History (Scale Score 5-6) levofloxacin 500 mg tablet 500 mg PO DAILY #7 tabs 11/11/24 Rx New Prescriptions to Start Prescriptions: reglafloxacin Hollis Linda Allergies Allergy/AdvReac Type Severity Reaction Status Date / Time promethazine Allergy Intermediate severe Verified 11/07/24 14:15 vomiting Penicillins Allergy Unknown Verified 11/07/24 14:15 allergy reaction Sulfa (Sulfonamide Allergy Unknown Verified 11/07/24 14:15 Antibiotics) allergy reaction triprolidine Allergy Unknown Verified 11/07/24 14:15 allergy reaction Discharge Plan Disposition Patient Disposition: Home, Self-Care Condition: Fair Discharge Order Discharge Orders: Discharge Order (Routine); Ordered 11/11/24 Ordered By: Hollis Linda Follow up Plan Follow up with: Veronica Yin APRN [Nurse Practitioner, Cardiology] - 1 week Rufus Justice MD [Primary Care Provider, Medical] - 2 weeks Prescriptions/Medication Reconciliation: New levofloxacin 500 mg tablet 500 mg PO DAILY Qty: 7 0RF Continued clonazepam 1 mg tablet 1 mg PO HSP PRN (Reason: Insomnia) Patient Comments: TAKE 1 TABLET BY MOUTH AT BEDTIME NEEDED atorvastatin 40 mg tablet 40 mg PO HS carvedilol 3.125 mg tablet 3.125 mg PO BID aspirin 81 mg tablet,chewable 81 mg PO DAILY clopidogrel 75 mg tablet 75 mg PO DAILY ropinirole 3 mg tablet 3 mg PO HS Patient Comments: TAKE 1 TABLET BY MOUTH 1 TO 3 HOURS BEFORE BEDTIME amlodipine 5 mg tablet 5 mg PO DAILY Patient Comments: TAKE 1 TABLET BY MOUTH ONCE DAILY ondansetron 4 mg tablet,disintegrating 4 mg PO Q8HP PRN (Reason: Nausea And Vomiting) Patient Comments: DISSOLVE 1 TABLET ON THE TONGUE EVERY 8 HOURS sacubitril-valsartan [Entresto] 24-26 mg tablet 1 tab PO BID Patient Comments: TAKE 1 TABLET BY MOUTH TWICE DAILY tramadol 50 mg tablet 50 mg PO Q6HP PRN (Reason: Moderate Pain (Scale Score 5-6)) Problem Reconciliation Problems Reviewed?: Yes Patient Discharge Instructions ACTIVITY: Limited activity DIET: continue same diet Patient Instructions: Restless Legs Syndrome (Alternative Therapy), Cardiac Catheterization, DI for Surgical Site Infection, DI for Respiratory Failure Print Language: Mohawk Providers Primary Care Provider: Rufus Justice Admit Provider: Denys Carbajal Attending Provider: Denys Carbajal
== END 2024-11-11 20:05 | disposition home or self-care (01) | DRG 286 ==
LOC: ER 11:19 → ICU 12:44 → 2ND 11-09 11:08
PROVIDERS: Family Medicine; Internal Medicine; Internal Medicine Gastroenterology; Internal Medicine Pulmonary Disease; Nurse Practitioner Family; Physician Assistant; Admitting Provider Family Medicine; Emergency Provider Student in an Organized Health Care Education/Training Program; PCP Family Medicine; Visit Provider Family Medicine
PROC: 0DJ08ZZ Inspection of Upper Intestinal Tract, Via Natural or Artificial Opening Endoscopic (ICD-10-PCS; principal; 2024-11-10 15:30)
PROC: 4A023N7 Measurement of Cardiac Sampling and Pressure, Left Heart, Percutaneous Approach (ICD-10-PCS; CPT 93452; principal; 2024-11-11 12:45)
DX: I13.0 Hypertensive heart and chronic kidney disease with heart failure and stage 1 through stage 4 chronic kidney disease, or unspecified chronic kidney disease (principal); I50.23 Acute on chronic systolic (congestive) heart failure; J18.9 Pneumonia, unspecified organism; J96.01 Acute respiratory failure with hypoxia; J96.02 Acute respiratory failure with hypercapnia; K29.61 Other gastritis with bleeding; K31.811 Angiodysplasia of stomach and duodenum with bleeding; E87.4 Mixed disorder of acid-base balance; I16.1 Hypertensive emergency; I24.89 Other forms of acute ischemic heart disease; I25.10 Atherosclerotic heart disease of native coronary artery without angina pectoris; I25.2 Old myocardial infarction; I25.5 Ischemic cardiomyopathy; K22.2 Esophageal obstruction; K26.9 Duodenal ulcer, unspecified as acute or chronic, without hemorrhage or perforation; G25.81 Restless legs syndrome; E53.8 Deficiency of other specified B group vitamins; E87.6 Hypokalemia; D50.9 Iron deficiency anemia, unspecified; N18.30 Chronic kidney disease, stage 3 unspecified; K44.9 Diaphragmatic hernia without obstruction or gangrene; K59.09 Other constipation; E78.5 Hyperlipidemia, unspecified; G62.9 Polyneuropathy, unspecified; D50.0 Iron deficiency anemia secondary to blood loss (chronic); R53.1 Weakness; Z88.0 Allergy status to penicillin; Z88.2 Allergy status to sulfonamides; Z88.8 Allergy status to other drugs, medicaments and biological substances; Z79.82 Long term (current) use of aspirin; Z79.02 Long term (current) use of antithrombotics/antiplatelets; Z79.899 Other long term (current) drug therapy; Z95.5 Presence of coronary angioplasty implant and graft
CPT/HCPCS: 0223U; 36415; 36430; 71045; 71275; 80048; 80053; 82272; 82607; 82746; 82803; 82962; 83540; 83550; 83605; 83735; 83880; 84443; 84484; 85014; 85018; 85025; 85044; 86803; 86850; 87081; 87389; 88305; 89220; 93005; 93308; 94660; 94761; 94762; 97162; 97166; 99152; 99285; C1725; C1726; C1769; G0328; J1200; J1644; J1756; J1938; J1956; J2003; J2250; J2704; J3010; J3420; J3480; J7040; J7050; P9016; Q9957; Q9967

== ENCOUNTER 2024-11-25 16:38 | Outpatient (CLI) | payer MEDICARE, BC, SELFPAY ==
--- OUTSIDE RECORDS SUMMARY | 2024-04-22 11:00 | XMS_ITS ---
Author Organization [facility] Address [address] [facility] [address] [place] [id number] Care Team Providers Care Medical Research Tech Name Role Phone Krzysztof Justice Primary Care Provider Trista Flores [phone] Allergies Allergen (clinical drug ingredient) Drug/Non Drug Allergy documented on EMR Reaction Allergy Type Onset Date Status Triprolidine-Pseudoe p hedrine Unknown Drug Allergy Active Substance with penicillin structure and antibacterial mechanism of action (substance) Penicillins Unknown Drug Allergy Active REASON FOR VISIT sinus drainage, vomiting Encounters Encounter Location Date Provider Diagnosis [facility] [address] [facility] [address] [place] [id number] 04/22/2024 Trista Flores Plan Of Treatment Next Appt Details Provider Name:Trista valenzuela, 12/09/2024 12:05:00 PM, [address] [facility] [address], [address], [facility] [place], [id number], Progress Notes * JEANNINE NAJERAOB: [birth year] (84 yo F)Acc No.[id number]:04/22/2024 Progress Notes Patient: BRANDY MARTINEZ Provider: GRACIE Cook :1940 A ge:83 Y S ex:Female Date:04/22/2024 Address:[address] [place] [address], [id number] Pcp:Krzysztof Justice Subjective: * Chief Complaints: * 1 . Sinus drainage, vomiting. * HPI: G astroenterology: 83 year old female presents with c/o Vomiting. E NT/respiratory: c/o nasal congestion. * ROS: D ERMATOLOGY: no R malu. [...] Diagno stic Procedure: [facility] [place] [facility]. * Family History: F ather: . M other: . 4 sister(s) . 1 daughter(s) . . * Social History: C URRENT TOBACCO USE S moking Status: Patient does NOT smoke. C affeine: yes, frequency:. Marital Status: . Past smoking status: no, Smoking status: Does not smoke. Alcohol: no. * Allergies: T riprolidine-Pseudoephedrine, Penicillins. Objective: * Vitals: Assessment: Plan: * Treatment: * Images: Billing Information: * Visit Code: * Procedure Codes: * Electronic signature of GRACIE Clark on 11/25/2024 at 04:42 PM EDT Sign off status: Pending * Provider: GRACIE Cook Date: 0 04/22/2024 Generated for Ar singh/Malena/eTransmitting on: 1 04:42 PM EDT History and Physical Notes * HPI (History of Present Illness) Category Sub-Category Detail Notes Category Not es ENT/respiratory nasal congestion Gastroenterology Vomiting
--- OUTSIDE RECORDS SUMMARY | 2024-06-02 06:45 | XMS_ITS ---
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 Name Role Phone Krzysztof Justice Primary Care Provider Allergies Allergen (clinical drug ingredient) Drug/Non Drug Allergy documented on EMR Reaction Allergy Type Onset Date Status Triprolidine-Pseudoe p hedrine Unknown Drug Allergy Active Substance with penicillin structure and antibacterial mechanism of action (substance) Penicillins Unknown Drug Allergy Active REASON FOR VISIT [facility] F/U Encounters Encounter Location Date Provider Diagnosis [facility] [address] [facility] [address] [facility] [address] [place] [id number] 06/02/2024 Krzysztof Justice Assessments Encounter Date Diagnosis (ICD Code) Assessment Notes Treatment Notes Treatment Clinical Notes Section Notes 06/02/2024 Other Discharge summary with available lab/diagnostic imaging results obtained and reviewed. Discharge medication list reconciled. Appropriate counseling provided. Moderate Complexity Plan Of Treatment Treatment Notes Assessment Notes Other Discharge summary wi available lab/diagnostic imaging results obtained and reviewed. Discharge medication list reconciled. Appropriate counseling provided. Moderate Complexity Next Appt Details Provider Name:Trista valenzuela, 12/09/2024 12:05:00 PM, [address] [facility] [address] [facility], [address], [place], [id number], Progress Notes * JEANNINE NAJERAOB: [birth year] (84 yo F)Acc No.[id number]:06/02/2024 Progress Notes Patient: BRANDY MARTINEZ Provider: Krzysztof Justice M.D. :1940 A ge:83 Y S ex:Female Date:06/02/2024 Address:[address] [place] [address], [id number] Subjective: * Chief Complaints: * 1 . H F/U. * HPI: H PI: Patient is here today for a Transition of Care Visit. Discharge from the following Facility: [facility] ,Discharge date: Thursday05/20/2024 ,Date of phone contact following discharge: Thursday05/23/2024. Pt was seen for lower back pain.? * ROS: D ERMATOLOGY: no R malu. [...] Diagno stic Procedure: [facility] , [facility]17/[facility]. * [...] * Vitals: Assessment: Plan: * Treatment: * Procedure Codes: 9 9495 TRANS CARE MGMT 14 DAY DISCH, 1111F [facility] MED/CURENT MED MERGE, G2211 Complex e/m visit add on * Images: Billing Information: * Visit Code: * Procedure Codes: 74397 TRANS CARE MGMT 14 DAY DISCH. 1111F [facility] MED/CURENT MED MERGE. G2211 Complex e/m visit add on. * Electronic signature of R Alvaro Justice MD on 11/25/2024 at 04:41 PM EDT Sign off status: Pending * Provider: Krzysztof Justice M.D. Date: 0 06/02/2024 Generated for Ar singh/Malena/Gordon on: 1 04:41 PM EDT History and Physical Notes * HPI (History of Present Illness) Category Sub-Category Detail Notes Category Not es HPI Patient is here today for a Smith sition of Care Visit. Discharge from the following Facility: [facility] ,Discharge date: Thursday05/20/2024 ,Date of phone contact following discharge: Thursday05/23/2024. Pt was seen for lower back pain
--- OUTSIDE RECORDS SUMMARY | 2024-08-11 09:30 | XMS_ITS ---
[facility] Address [address] [place] [id number] Care Team Providers Care Dialysis Tech Name Role Phone Krzysztof Justice Primary [...] Encounter Location Date Provider Diagnosis [facility] [address], [place] [phone] 08/11/2024 R Pradip Justice Restless leg syndrom [...] Appt Details Follow Up: 3 Months, Reason: Provider Name:Trista Chris Shante y, 12/09/2024 12:05:00 PM, [address] [facility] [address], [place], [place], [id number], Progress Notes * JEANNINE NAJERAOB: [birth year] (84 yo F)Acc No.[id number]:08/11/2024 Progress Notes Patient: BRANDY MARTINEZ Provider: Krzysztof Justice M.D. :1940 A ge:84 Y S ex:Female Date:08/11/2024 Address:[address] [place] [address], [facility] Subjective: * Chief Complaints: * 1 . Check Up. * HPI: H PI: 84 year old female presents with c/o Patient is here today for?Pt is here today for a check up. . She has a full-time sitter at home. Her is currently residing at [facility] for rehab following hip fracture. [...] Diagno stic Procedure: b stacey leg , [facility] - RLS 11/17/2023. * Family [...] Temp: 98.4, BP: 150/80, HR: 90, Nurse: juana, Ht: 65, BMI:20.3. * Examination: Saritha astroenterology: S he comes in by wheelchair accompanied by her [...] TN (hypertension) - I10 8 . B KS 20.0-20.9, adult - Z68.20 Plan: * Treatment: [...] * Images: Billing Information: * Visit Code: 18379 Office Visit, Est Pt., Level 3. * Procedure Codes: G2211 Complex e/m visit add on. G8420 BMI<30 AND >=22 CALC & DOCU. G8753 MOST RECENT SYSTOLIC BP >= 140MM HG. G8754 MOST RECENT DIASTOLIC BP < 90MM HG. 1036F TOBACCO NON-USER. * Electronic signature of Krzysztof Justice MD on 11/25/2024 at 04:42 PM EDT Sign off status: Pending * Provider: Krzysztof Justice M.D. Date: 0 08/11/2024 Generated for Ar singh/Malena/Pastoritting on: 1 04:42 PM EDT History and [...] pain is resolved. [facility] is [facility] for a [facility] up. She has a full-time sitter at home. Her is currently residing at [facility] for rehab following hip fracture. [...]
--- NOTE | 2024-11-25 | XR_ITS ---
PROCEDURE INFORMATION: Exam: XR Chest Exam date and time: 11/25/2024 4:38 PM Age: 84 years old Clinical indication: Cough and shortness of breath TECHNIQUE: Imaging protocol: Radiologic exam of the chest. Views: 2 views. COMPARISON: CR XR CHEST PORTABLE 11/09/2024 10:02 AM FINDINGS: Lungs: A few granulomata within the right lung base are stable. The lungs appear otherwise clear. No focal areas of consolidation. Pleural spaces: No pleural effusions. Negative for pneumothorax. Heart/Mediastinum: Cardiac silhouette and pulmonary vasculature are within range of normal. Bones/joints: There is prominent accentuation of thoracic kyphosis. Marked compression fracture involving T12, described on MR of the thoracic spine dated 05/27/2024 and also seen on CT of the chest dated 11/07/2024 appears stable with focal kyphosis in this region. IMPRESSION: Negative for an acute cardiopulmonary abnormality. Stable exam.
--- OUTSIDE RECORDS SUMMARY | 2024-11-25 16:42 | XMS_ITS | Patient Health Record ---
Author Organization [id number] [facility] Address [address] [facility] [address] [place], [place] [id number] Support Name Relationship Address Phone NajeraKelly liun Guarantor Unknown [phone] Reason For Referral No Information Plan Of Treatment No Information Insurance Providers Payer Name Payer Address Payer Phone Subscriber Number Group Number Insured Name Patient Relationship to Insured Coverage Start Date Coverage End Date VANIA SE[employer]URA PPO [address] [place], [place] [id number] Barbara Hopkins Self - patient is the insured MEDICARE [place] PART B [address] [place], [place] [id number] Barbara Hopkins Self - patient is the insured
--- OUTSIDE RECORDS SUMMARY | 2024-11-25 16:42 | XMS_ITS | Clinical Summary ---
Author Organization [facility] Address [address] [place] [address] Care Team Providers Care Inspection Machine Tender Name Role Phone System, Provider Not In [...] patient's age to complete this topic Insurance [facility] MEDICARE Care Teams Inspection Machine Tender Relationship Specialty Start Date End Date System, Provider Not In PCP - General 04/26/20
--- OUTSIDE RECORDS SUMMARY | 2024-11-25 16:42 | XMS_ITS | Clinical Summary ---
Author Organization Healthcare Address [address] [place] [address] Care Team Providers Care Assembler Motor Vehicle Name Role Phone Unavailable Primary Care Provider Unavailabl e Social History Tobacco Use Types Packs/Day Years Used Date Smoking Tobacco: Never Assessed Comments Unknown Sex and Gender Information Value Date Recorded Sex Assigned at Not on file Legal Sex Female 8:29 PM EST Gender Identity Not on file Sexual Orientation Not on file Plan of Treatment Not on file Insurance [facility] [place] [address]
--- OUTSIDE RECORDS SUMMARY | 2024-11-25 16:42 | XMS_ITS | Clinical Summary ---
Author Organization [facility] Address [address] [place] [address] Care Team Providers Care Documentation Liaison Name Role Phone Estefani Puga MD Primary Care Provider [phone] Allergies Active Allergy Reactions Criticality Noted Date [...] NAJERA Date of :1940 (Home) Address: [address] [place] [address] Payer ID:[id number] (NAIC) Type:Indemni Address: [facility] [address] [place] [id number] Care Teams Documentation Liaison Relationship Specialty Start Date End Date Estefani Puga MD [address] [place] [id number] PCP - General Nephrology 02/18/23
--- OUTSIDE RECORDS SUMMARY | 2024-11-25 16:43 | XMS_ITS | Patient Health Record ---
Author Organization [facility] Address [address] [facility] [address] [place] [id number] Care Team Providers Care Automotive Service Advisor Name Role Phone Krzysztof Justice Primary Care Provider Camron Carbajal Unavailable [phone] Trista Flores Unavailable [phone] Allergies Allergen (clinical drug ingredient) Drug/Non Drug Allergy documented on EMR Reaction Allergy Type Onset Date Status Triprolidine-Pseudoe p hedrine Unknown Drug Allergy Active Substance with penicillin structure and antibacterial mechanism of action (substance) Penicillins Unknown Drug Allergy Active Results Component Value Reference Range Notes CBC Venipuncture (in house) Reviewed date:11/25/2024 04:39:25 PM Interpretation: Performing Lab: Notes/Report: wbc 7.7 3.5 - 10 lymph 18.8% 15 - 50 mid 6.3% 2 - 15 gran 74.9% 35 - 80 rbc 4.11 3.5 - 5.5 hgb 10.4 11.5 - 16.5 hct 33.0 35 - 55 mcv 80.3 75 - 100 mch 25.4 25 - 35 mchc 31.6 31 - 38 platlet 297 100 - 400 H-BMP Reviewed date:11/11/2024 12:06:02 PM Interpretation: Performing Lab: Notes/Report: NA 136 136-145 mmol/L K 4.0 3.5-5.1 mmoL/L CL 106 98-107 mmol/L CO2 22 22.0-30.0 mmol/L GAP 12.0 5-15 mEq/L BUN 20 7-17 mg/dl CREATT 1.00 0.52-1.04 mg/dl CRCLE 36 50-200 mL/min GFRAA 64 >60 ML/MIN EGFR 53 >60 ml/min GLU 100 74-100 mg/dl CA 8.5 8.4-10.2 mg/dl H-CBC Reviewed date:11/11/2024 12:06:02 PM Interpretation: Performing Lab: Notes/Report: WBC 8.6 4.8-10.8 K/mm3 RBC 4.29 4.20-5.40 M/mm3 HGB 10.8 12.2-16.2 g/dL HCT 34.7 37.0-47.0 % MCV 80.9 81-99 fl MCH 25.2 27.0-31.2 pg MCHC 31.1 31.8-35.4 g/dL RDW-SD 58.4 RDW 20.0 11.5-17.5 % PLT 257 142-424 K/mm3 MPV 9.6 7.4-10.4 fl NE% 69.7 37.0-80.0 % LY% 17.6 10-50 % MO% 9.5 1.7-9.3 % EO% 2.2 0.1-12.0 % BA% 0.7 0.1-2.0 % NRBC% 0 IG% 0.3 NE# 6.0 1.8-7.8 K/mm3 LY# 1.5 0.7-4.5 K/mm3 MO# 0.8 0.1-1.0 K/mm3 EO# 0.2 0.0-0.4 Kmm3 BA# 0.1 0-0.2 K/mm3 NRBC# 0 IG# 0.03 H-Crossmatch Reviewed date:11/09/2024 08:46:34 AM Interpretation: Performing Lab: Notes/Report: Timeframe for Post-Transf H/H 1 hour RBC Product Order Reason Hgb/Hct <7/21 XM UNIT NUMBER: [id number] XM COMPATIBLE: Y XM PRODUCT: Red Blood Cells XM SOURCE: [facility] XM BLOOD TYPE: A Positive XM VOLUME: 250mL XM CROSSMATCH COMPONENTS: XMNOTE Notification Notified [facility]AR[facility] by Suresh Aguayo MLS 11/08/24 0821. Notified [facility] by Suresh Aguayo MLS 11/08/24 0820. XM UNIT NUMBER: [id number] XM COMPATIBLE: Y XM PRODUCT: Red Blood Cells XM SOURCE: [facility] XM BLOOD TYPE: A Positive XM VOLUME: 250mL XM CROSSMATCH COMPONENTS: XMNOTE Notification Notified [facility] by Suresh Aguayo MLS 11/08/24 0821. Notified [facility] by Suresh Aguayo MLS 11/08/24 08. H-Type and Screen Reviewed date:11/09/2024 08:46:34 AM Interpretation: Performing Lab: Notes/Report: RBC Product Order Reason Hgb/Hct <7/21 Timeframe for Post-Transf H/H 1 hour BT A Positive ABS NEGATIVE H-Retic count Reviewed date:11/08/2024 10:37:33 AM Interpretation: Performing Lab: Notes/Report: ADEN 1.4 0.9-3.2 % H-VITAMIN B12 Reviewed date:11/08/2024 10:37:33 AM Interpretation: Performing Lab: Notes/Report: VITB12 184 239-931 pg/mL H-Folate Reviewed date:11/08/2024 10:37:33 AM Interpretation: Performing Lab: Notes/Report: FOL 14.10 Normal Adult: 2.76->20 ng/mL Folate Deficent: 1.04-2.79ng/mL H-URC Reviewed date:11/09/2024 08:46:33 AM Interpretation: Performing Lab: Notes/Report: U500.0100 TRANSFUSED PRODUCT: Red Blood Cells COUNT: 2 H-BMP Reviewed date:11/08/2024 10:37:33 AM Interpretation: Performing Lab: Notes/Report: NA 140 136-145 mmol/L K 2.8 3.5-5.1 mmoL/L Delta: 3.6 on 11/07/24-1020 CRITICAL RESULT Results called and read back/verified to: DONALDO on 11/08/24 at 0559 By Latricia Piedra CL 105 98-107 mmol/L CO2 31 22.0-30.0 mmol/L GAP 6.8 5-15 mEq/L BUN 15 7-17 mg/dl CREATT 0.90 0.52-1.04 mg/dl CRCLE 40 50-200 mL/min GFRAA 72 >60 ML/MIN Delta: 57 on 11/07/24-1019 EGFR 60 >60 ml/min GLU 96 74-100 mg/dl Delta: 270 on 11/07/24-1019 CA 8.0 8.4-10.2 mg/dl H-CBC Reviewed date:11/08/2024 10:37:33 AM Interpretation: Performing Lab: Notes/Report: WBC 8.1 4.8-10.8 K/mm3 Delta: 14.2 o n 11/07/24-1019 RBC 2.99 4.20-5.40 M/mm3 HGB 6.9 12.2-16.2 g/dL CRITICAL RESULT Results called and read back/verified to: Jessica DECKER on 11/08/24 at 0549 By Rudy Arrieta, NATHANAEL HCT 22.7 37.0-47.0 % MCV 75.9 81-99 fl MCH 23.1 27.0-31.2 pg MCHC 30.4 31.8-35.4 g/dL RDW-SD 46.8 RDW 17.0 11.5-17.5 % PLT 265 142-424 K/mm3 Delta: 421 on 11/07/24-1019 MPV 9.4 7.4-10.4 fl NE% 72.3 37.0-80.0 % LY% 14.9 10-50 % MO% 10.5 1.7-9.3 % EO% 0.9 0.1-12.0 % BA% 1.0 0.1-2.0 % NRBC% 0 IG% 0.4 NE# 5.9 1.8-7.8 K/mm3 LY# 1.2 0.7-4.5 K/mm3 MO# 0.9 0.1-1.0 K/mm3 EO# 0.1 0.0-0.4 Kmm3 BA# 0.1 0-0.2 K/mm3 NRBC# 0 IG# 0.03 HCVAB Reviewed date:11/08/2024 10:37:33 AM Interpretation: Performing Lab: Notes/Report: HCVAB NEGATIVE Negative All initial positives will be confirmed by 2 retests, if still positive they will be confirmed by [facility] Sendout. HIVC Reviewed date:11/07/2024 08:12:24 PM Interpretation:Negative Performing Lab: Notes/Report: HIVC NEGATIVE Negative All initial positives will be confirmed by 2 retests, if still positive they will be confirmed by [facility] Send[facility]. H-Iron, TIBC, Iron Saturatio n Reviewed date:11/09/2024 08:46:33 AM Interpretation: Performing Lab: Notes/Report: FE 32 37-170 ug/dL DTIBC 344 265-497 ug/dL IRONSAT 9.58671 15-55 % H-Hemoglobin/Hematocrit Reviewed date:11/09/2024 08:46:33 AM Interpretation: Performing Lab: Notes/Report: HGB 10.9 12.2-16.2 g/dL Delta: 6.9 on 11/08/24 HCT 34.8 37.0-47.0 % H-BMP Reviewed date:11/09/2024 08:46:33 AM Interpretation: Performing Lab: Notes/Report: NA 140 136-145 mmol/L K 4.2 3.5-5.1 mmoL/L Delta: 2.8 on 11/08/24 CL 100 98-107 mmol/L CO2 31 22.0-30.0 mmol/L GAP 13.2 5-15 mEq/L BUN 17 7-17 mg/dl CREATT 1.00 0.52-1.04 mg/dl CRCLE 36 50-200 mL/min GFRAA 64 >60 ML/MIN EGFR 53 >60 ml/min GLU 131 74-100 mg/dl Delta: 96 on 11/08/24 CA 8.4 8.4-10.2 mg/dl H-CBC Reviewed date:11/09/2024 10:03:57 AM Interpretation: Performing Lab: Notes/Report: WBC 8.4 4.8-10.8 K/mm3 RBC 4.66 4.20-5.40 M/mm3 Delta: 2.99 on 11/08/24 HGB 11.7 12.2-16.2 g/dL HCT 37.3 37.0-47.0 % MCV 80.0 81-99 fl MCH 25.1 27.0-31.2 pg MCHC 31.4 31.8-35.4 g/dL RDW-SD 53.9 RDW 18.7 11.5-17.5 % PLT 259 142-424 K/mm3 MPV 8.8 7.4-10.4 fl NE% 79.4 37.0-80.0 % LY% 9.2 10-50 % MO% 8.5 1.7-9.3 % EO% 2.0 0.1-12.0 % BA% 0.7 0.1-2.0 % NRBC% 0 IG% 0.2 NE# 6.7 1.8-7.8 K/mm3 LY# 0.8 0.7-4.5 K/mm3 MO# 0.7 0.1-1.0 K/mm3 EO# 0.2 0.0-0.4 Kmm3 BA# 0.1 0-0.2 K/mm3 NRBC# 0 IG# 0.02 H-CMP Reviewed date:11/09/2024 10:03:58 AM Interpretation: Performing Lab: Notes/Report: NA 137 136-145 mmol/L K 3.6 3.5-5.1 mmoL/L CL 101 98-107 mmol/L CO2 29 22.0-30.0 mmol/L GAP 10.6 5-15 mEq/L BUN 17 7-17 mg/dl CREATT 1.10 0.52-1.04 mg/dl CRCLE 33 50-200 mL/min GFRAA 57 >60 ML/MIN EGFR 47 >60 ml/min GLU 164 74-100 mg/dl Delta: 131 on 11/08/24-1519 CA 8.3 8.4-10.2 mg/dl BILIT 1.5 0.2-1.3 mg/dl AST 29 14-36 U/L ALT 17 12-78 U/L Delta: 25 on 11/07/24-1020 TP 7.0 6.3-8.2 g/dl ALB 3.6 3.5-5.0 g/dl GLOB 3.4 1.3-3.2 g/dL AGRATIO 1.1 1.1-1.8 ALP 83 38-126 U/L H-Sputum Culture with Keiko brand Reviewed date:11/14/2024 10:03:20 AM Interpretation: Performing Lab: Notes/Report: Comment: Induce w/3ml NS neb tx if necessary Cancelled via OM: Order cancelled - Patient discharged Cancel Comments Urinalysis - Inhouse Reviewed date:12/07/2023 10:10:41 AM Interpretation: Performing Lab: Notes/Report: Color/Clarity yellow/cloudy Leuk 3+ Nitrite pos Urobili 3.2 Protein 1+ pH 6.0 Blood 1+ Sp. Gr. 1.015 Ketone neg Bili neg Gluc neg P-Culture, Urine Reviewed date:12/17/2023 03:56:39 PM Interpretation:sensitive Performing Lab: Notes/Report: CLIA: [id number] Christain Woods MD, Sound Engineering Technician [address] [place] [address] , [place] [address] Test performed by [facility], [facility] Specimen Source Urine - Void Culture, Urine See Below See Microbiol ogy Report Klebsiella pneumoniae 50,000-100,000 CFU /ml Klebsiella pneumoniae Sensitivity Panel See Below Organism K.pneum Antibiotic INTERP Amikacin S Ampicillin R Aztreonam S Cefepime S Cefoxitin S Ceftazidime S Ceftriaxone S Cefuroxime S Ciprofloxacin S Ertapenem S Gentamicin S Imipenem S Levofloxacin S Meropenem S Nitrofurantoin S Piperacillin/Tazo S Tetracycline S Tobramycin S Trimeth/Sulfa S S=SUSCEPTIBLE I=INTERMEDIATE R=RESISTANT H-URC Reviewed date:05/20/2024 01:26:19 PM Interpretation: Performing Lab: Notes/Report: U500.0100 TRANSFUSED PRODUCT: Red Blood Cells COUNT: 1 H-Type and Screen Reviewed date:05/20/2024 01:26:20 PM Interpretation: Performing Lab: Notes/Report: Timeframe for Post-Transf H/H 1 hour RBC Product Order Reason Hgb/Hct <9/26 w/ CAHD BT A Positive ABS NEGATIVE H-Crossmatch Reviewed date:05/20/2024 01:26:20 PM Interpretation: Performing Lab: Notes/Report: RBC Product Order Reason Hgb/Hct <9/26 w/ CAHD Timeframe for Post-Transf H/H 1 hour XM UNIT NUMBER: [id number] XM COMPATIBLE: Y XM PRODUCT: Red Blood Cells XM SOURCE: [facility] XM BLOOD TYPE: A Positive XM VOLUME: 250mL XM CROSSMATCH COMPONENTS: XMNOTE Notification CLIF Notified by Wendy West MLT 05/18/241951. H-CRE Screen Reviewed date:05/20/2024 01:26:19 PM Interpretation: Performing Lab: Notes/Report: CRE CRE Screen: Positive H-CBC Reviewed date:05/20/2024 01:26:19 PM Interpretation: Performing Lab: Notes/Report: WBC 11.1 4.8-10.8 K/mm3 Delta: 7.4 on 05/18/24-160 RBC 4.72 4.20-5.40 M/mm3 Delta: 3.32 on 05/18/24-160 HGB 10.5 12.2-16.2 g/dL Delta: 8.8 on 05/19/24-0130 HCT 34.7 37.0-47.0 % MCV 73.5 81-99 [...] 0.2 0.0-0.4 K/mm3 BA# 0.1 0-0.2 K/mm3 H-CMP Reviewed date:05/20/2024 01:26:19 PM [...] HGB 8.8 12.2-16.2 g/dL Delta: 7.1 on 05/18/24 HCT 28.6 37.0-47.0 % H-CBC Reviewed date:05/20/2024 [...] 0.2 0.0-0.4 K/mm3 BA# 0.0 0-0.2 K/mm3 H-BMP Reviewed date:05/20/2024 01:26:19 PM Interpretation: Performing [...] 124 74-100 mg/dl CA 8.8 8.4-10.2 mg/dl Reason For Referral Reason Dr. Solano is aware and wants to do a kyphoplasty the week of June 06 Diagnosis 1 Compression fracture of T12 vertebra, initial encounter (S22.080A) Referral Organization [facility] Referring Provider First Name Krzysztof Moseley Referring Provider Last Name Vinh Referring Provider Speciality Family Benito flores Referred Provider Memo Solano Referred Provider Specialty Pain Managem ent General Notes Desire Kennedy 2024 08:32:38 AM > faxed [facility] Pain Management, Desire Kennedy 06/02/2024 10:28:41 AM > spoke to Myrna in [place]; patient needed to be scheduled in [place] for Dr. Solano (I was unaware) so I just faxed to the [place] office Referral Priority Routine Medications Medication SIG (Take, Route, Frequency, Duration) Notes Start Date End Date Status Carvedilol 3.125 MG 1 tablet with food O rally Twice a day; Duration: 90 days Active Atorvastatin Calcium 40 MG 1 tablet Oral ly Once a day; Duration: 90 days Active Aspirin 81 81 MG 1 tablet Orally Once a day; Duration: 90 days Active Entresto 24-26 MG 1 tablet Orally Twic e a day; Duration: 90 days Active Jardiance 10 MG 1 tablet Orally Once a day; Duration: 90 days Active Norvasc 5 MG 1 tab(s) orally once a day; Duration: 90 days Active Citrucel 500 MG 2 tablets with a ful l glass of water as needed Orally Six times a day; Duration: 90 days Active clonazePAM 1 MG 1 tablet at bedtime Orally Once a day PRN; Duration: 30 days 10/10/2024 Active traMADol HCl 50 MG 1 tablet as needed O rally 4 times a day; Duration: 30 days 10/10/2024 Active LORazepam 1 MG 1 tablet at bedtime as needed Orally two times a day as needed Active Ondansetron 4 MG 1 tablet on the tong ue and allow to dissolve Orally every 8 hours 02/13/2023 Active Clopidogrel Bisulfate 75 MG Take 1 table t by mouth once daily; Duration: 90 Active rOPINIRole HCl 3 MG 1 tablet 1 to 3 hour s before bedtime Orally Once a day; Duration: 90 days 09/07/2024 Active Immunizations Vaccine Route Administration Date Status [...] xFluzone High Dose-private (65yr&older) Unknown 12/21/2018 Administered vXpayasi-vnniamsqt-khbw care pts. IM Intramuscular 12/16/2010 Administered Problems Problem Type SNOMED Code ICD Code Onset Dates Problem Status W/U Status Risk Notes Problem Essential hypertension (11424519) Essential (primary) hypertension (I10) Active confirmed Problem Coronary arteriosclerosis (44879574) ASCVD (arteriosclerotic cardiovascular disease) (I25.10) Active confirmed Problem Hypertension (94596436) HTN (hypertension) (I10) Active confirmed Problem Hyperlipidemia (74172934) Hyperlipidemia (E78.5) Active confirmed Problem Essential hypertension (77546139) Essential hypertension (I10) Active confirmed Problem Restless legs syndrome (69251351) Restless leg syndrome (G25.81) Active confirmed Problem Dysphagia (07643071) Dysphagia (R13.10) Active confirmed Problem Ischemic cardiomyopathy (595866437) Ischemic cardiomyopathy (I25.5) Active confirmed Problem Constipation (04356186) Constipation, unspecified constipation type (K59.00) Active confirmed Problem Kidney stone (55075853) Kidney stone (N20.0) Active confirmed Problem Transient ischemic attack (970665652) TIA (transient ischemic attack) (G45.9) Active confirmed Problem Atherosclerotic heart disease of hoh coronary artery without angina pectoris (116362371491640) Atherosclerosis of hoh coronary artery without angina pectoris, unspecified whether hoh or transplanted heart (I25.10) Active confirmed Problem Hypertensive emergency (235480904866859) Hypertensive emergency (I16.1) Active confirmed Problem Cardiomyopathy (83744888) Cardiomyopathy, unspecified type (I42.9) Active confirmed Problem Chronic systolic heart failure (503399097) Chronic HFrEF (heart failure with reduced ejection fraction) (I50.22) Active confirmed Problem Essential hypertension (86502413) White coat syndrome with diagnosis of hypertension (I10) Active confirmed Problem Chronic kidney disease stage 3 (disorder) (528847400) Stage 3 chronic kidney disease, unspecified whether stage 3a or 3b CKD (N18.30) Active confirmed Problem Mass of uterine adnexa (945634626) Adnexal mass (N94.89) Active confirmed Problem Anemia (369567339) Acute anemia (D64.9) Active confirmed Vital Signs Heart Rate 78 /min 11/25/2024 Blood pressure diastolic 70 mm Hg 11/25/2024 Height 65 in 11/25/2024 Blood pressure systolic 136 mm Hg 11/25/2024 Weight 127.8 lbs 11/25/2024 BMI 21.26 kg/m2 11/25/2024 Encounters Encounter Location Date Provider Diagnosis [facility] [address] [facility] [address] [place] [id number] 11/26/2023 R Pradip Johnsonfleet Restless leg syndrom e G25.81 and Encounter for immunization Z23 [facility] [address] [facility] [address] [place], [place] [id number] 12/03/2023 Camron Carbajal Acute UTI N39.0 [facility] [address] [facility] [address] [place], [place] [id number] 08/11/2024 R Pradip Justice Restless leg syndrom e G25.81 ; ASCVD (arteriosclerotic cardiovascular disease) I25.10 ; Stage 3 chronic kidney disease, unspecified whether stage 3a or 3b CKD N18.30 ; Chronic HFrEF (heart failure with reduced ejection fraction) I50.22 ; Cardiomyopathy, unspecified type I42.9 ; Hyperlipidemia E78.5 ; HTN (hypertension) I10 and BMI 20.0-20.9, adult Z68.20 [facility] [address] [place], [place] [id number] 11/25/2024 Trista Flores Acute pneumonia J18. 9 ; Acute pulmonary edema J81.0 ; Hypertensive emergency I16.1 ; Acute respiratory failure with hypercapnia J96.02 and Acute anemia D64.9 [facility] [address] [place], [place] [id number] 12/04/2023 R Pradip Vinh [facility] [address] [facility] [address] [place], [place] [id number] 12/21/2023 R Pradip Vinh Hyperlipidemia E78.5 and ASCVD (arteriosclerotic cardiovascular disease) I25.10 [facility] [address] [facility] [address] [place] [id number] 01/14/2024 R Pradip Vinh Restless leg syndrom e G25.81 [facility] [address] [facility] [address] [place], [place] [id number] 01/18/2024 R Pradip Vinh [facility] [address] [facility] [address] [place], [place] [id number] 03/01/2024 R Pradip Vinh Restless leg syndrom e G25.81 [facility] [address] [facility] [address] [place] [id number] 03/16/2024 R Pradip Vinh [facility] [address] [facility] [address] [place] [id number] 04/04/2024 R Pradip Vinh [facility] [address] [facility] [address] [place], [place] [id number] 05/20/2024 R Pradip Vinh [facility] [address] [facility] [address] [place], [place] [id number] 05/30/2024 R Pradip Vinh Compression fracture of T12 vertebra, initial encounter S22.080A [facility] [address] [place] [id number] 06/02/2024 R Pradip Vinh [facility] [address] [place], [place] [id number] 06/07/2024 R Pradip Vinh Restless leg syndrom e G25.81 [facility] [address] [place] [id number] 06/24/2024 R Pradip Vinh [facility] [address] [place], [place] [id number] 07/14/2024 R Pradip Vinh [facility] [address] [place] [id number] 09/07/2024 R Pradip Vinh Restless leg syndrom e G25.81 [facility] [address] [facility] [address] [place], [place] [id number] 10/06/2024 R Pradip Vinh ASCVD (arteriosclero tic cardiovascular disease) I25.10 ; Hyperlipidemia E78.5 ; Ischemic cardiomyopathy I25.5 and Essential (primary) hypertension I10 [facility] [address] [facility] [address] [place], [place] [id number] 10/06/2024 R Pradip Vinh [facility] [address] [facility] [address] [place] [id number] 10/31/2024 R Pradip Vinh [facility] [address] [place], [place] [id number] 11/15/2024 R Pradip Vinh Assessments Encounter Date Diagnosis (ICD Code) Assessment [...] ASCVD (arteriosclerotic cardiovascular disease) (ICD-10 - I25.10) 11/25/2024 Acute pulmonary edema (ICD-10 - J81.0) Gave number for them to call and make appt with Cardiology 11/25/2024 Acute pneumonia (ICD-10 - J18.9) 11/25/2024 Hypertensive emergency (ICD-10 - I16.1) 10/06/2024 Hyperlipidemia (ICD-10 - E78.5) 08/11/2024 Stage 3 chronic kidney disease, unspecified whether stage 3a or 3b CKD (ICD-10 - N18.30) 12/21/2023 ASCVD (arteriosclerotic cardiovascular disease) (ICD-10 - I25.10) 08/11/2024 Chronic HFrEF (heart failure with reduced ejection fraction) (ICD-10 - I50.22) 10/06/2024 Ischemic cardiomyopathy (ICD-10 - I25.5) 11/25/2024 Acute respiratory failure with hypercapnia (ICD-10 - J96.02) 11/25/2024 Acute anemia (ICD-10 - D64.9) 10/06/2024 Essential (primary) hypertension (ICD-10 - I10) 08/11/2024 Cardiomyopathy, unspecified type (ICD-10 - I42.9) 08/11/2024 Hyperlipidemia (ICD-10 - E78.5) 08/11/2024 HTN (hypertension) (ICD-10 - I10) 08/11/2024 BMI 20.0-20.9, adult (ICD-10 - Z68.20) 06/02/2024 Other Discharge summa ry with available lab/diagnostic imaging results obtained and reviewed. Discharge medication list reconciled. Appropriate counseling provided. Moderate Complexity 11/25/2024 Other Discharge summa ry with available lab/diagnostic imaging results obtained and reviewed. Discharge medication list reconciled. Appropriate counseling provided. Moderate Complexity Plan Of Treatment Pending Test Test Name Order Date CXR 11/25/2024 Modified barium swallow 09/22/2023 P-Vitamin B12 11/25/2024 P-Comprehensive Metabolic Panel (CMP) P-Ferritin 11/25/2024 P-Iron 11/25/2024 Next Appt Details Provider Name:Trista valenzuela, 12/09/2024 12:05:00 PM, [address], [place], [place], [id number], Insurance Providers Payer Name Payer Address Payer Phone Subscriber Number Group Number Insured Name Patient Relationship to Insured Coverage Start Date Coverage End Date MEDICARE PART B [address] [address] [place] [address] [id number] BRANDY COHN Self - patient is the insured VANIA TORREZ [facility] [address] [place] [address] [id number] RADHA COHN Spouse - patient is the [...] ejection fraction 01/2023 Hospitalization History Reason Date(Month/Year) [facility] ER - RLS 11/17/2023 broken leg
== END 2024-11-25 23:59 | disposition home or self-care (01) ==
LOC: RAD 16:40
PROVIDERS: PCP Family Medicine; Visit Provider Family Medicine
DX: J18.9 Pneumonia, unspecified organism (principal)
CPT/HCPCS: 71046